=== PATIENT | male | born 1940 | race Caucasian/White ===

== ENCOUNTER 2018-12-30 19:35 | Observation (INO) ==
[2018-12-30 20:37] LABS: Partial Thromboplastin Ratio 0.9; Partial Thromboplastin Time 23.1 Seconds (21.0-31.0); Prothrombin Time 10.1 Seconds (9.0-12.0)
[2018-12-30 20:38] LABS: iSTAT Creatinine 0.9 mg/dl (0.6-1.3); iSTAT Hemoglobin 14.3 g/dl (14.0-18.0); iSTAT Ionized Calcium 1.2 mmol/l (1.12-1.32); iSTAT Potassium 4.4 mEq/L (3.3-5.0)
[2018-12-30 20:45] LABS: Basophils # (auto) 0.03 K/uL (0-0.2); Basophils % (auto) 0.5 %; Eosinophils # (auto) 0.25 K/uL (0-0.5); Hematocrit (blood only) 43.3 % (42-52); Hemoglobin 14.9 g/dL (14.0-18.0); Immature Granulocytes # (auto) 0.02 K/uL (0.00-0.02); Immature Granulocytes % (auto) 0.3 %; Lymphocytes # (auto) 1.74 K/uL (1.2-3.4); Mean Corpuscular Hgb Conc 34.4 g/dL (32-36); Mean Corpuscular Volume 90.6 fL (80-100); Mean Platelet Volume 9.5 fL (7.4-10.4); Monocytes # (auto) 0.86 K/uL (0.11-0.59); Monocytes % (auto) 13.8 %; Neutrophils # (auto) 3.32 K/uL (1.4-6.5); Neutrophils % (auto) 53.4 %; Platelet Count 167 K/uL (130-400); RDW Coefficient of Variation 12.9 % (11.5-14.5); RDW Standard Deviation 42.7 fL (36.4-46.3); Red Blood Count 4.78 M/uL (4.7-6.1); White Blood Count 6.22 K/uL (4.8-10.8)
[2018-12-30] MEDS ORDERED: OPTIRAY 320 125ml IV PRN (20:47)
[2018-12-30 21:03] LABS: Alanine Aminotransferase 47 U/L (12-78); Albumin Level 3.3 gm/dl (3.4-5.0); Aspartate Aminotransferase 25 U/L (15-37); BUN Creatinine Ratio 23.1 (10-20); Blood Urea Nitrogen 24 mg/dl (7-18); Calcium 8.6 mg/dl (8.5-10.1); Carbon Dioxide 28 mmol/L (21-32); Chloride 107 mmol/L (98-107); Est GFR (African American) 78.4; Est GFR (Non-African American) 67.7; Glucose 172 mg/dl (70-99); Magnesium 1.9 mg/dl (1.8-2.4); Potassium 4.5 mmol/L (3.5-5.1); Sodium 140 mmol/L (136-145)
[2018-12-30 21:04] LABS: Alkaline Phosphatase 76 U/L (45-117); Bilirubin,Total 0.4 mg/dl (0.2-1); Globulin 3.2 gm/dl (2.5-4.0); Total Protein 6.5 gm/dl (6.4-8.2); Troponin I < 0.015 ng/ml (0-0.045)
--- NOTE | 2018-12-30 21:06 | CT Scan Report ---
UNENHANCED CT OF THE BRAIN; CT ANGIOGRAM OF THE BRAIN; CT ANGIOGRAM OF THE NECK CLINICAL HISTORY: Intermittent right-sided weakness. COMPARISON STUDY: No priors. TECHNIQUE: Unenhanced axial CT scan of the brain is performed. Subsequently, following the IV adminis tration of 119 of Optiray 320, CT angiogram of the head and neck was performed from the aortic arch t o the vertex. Images are reviewed in the axial, sagittal, and coronal planes. 3-D MIPS images are cre ated and assessed. IV contrast was administered without complication. All measurements were calculate d based on NASCET criteria. A dose lowering technique was utilized adhering to the principles of ALA RA. CT DOSE: 1244.71 mGy.cm FINDINGS: Brain parenchyma: There is age-related involutional change noting 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 There is no hemorrhage, mass effect, or evidence of acute t erritorial ischemia by CT criteria. There is no evidence of enhancing mass lesion on the angiogram ph ase images. The ventricles, sulci, and cisterns are prominent secondary to involutional change. Kurtz- white matter differentiation is preserved. No extra-axial fluid collection is seen. Thoracic aorta: There is atherosclerotic calcification of the thoracic aorta. Visualized portions of the thoracic aorta are normal in caliber. The aortic arch demonstrates standard 3-vessel anatomy. Right carotid arterial system: The right common carotid artery is widely patent, as are the right int ernal and external carotid arteries. Atherosclerotic calcification is noted in the carotid bulb. Left carotid arterial system: The left common carotid artery is widely patent, as are the left rn internal medicine al and external carotid arteries. There is atherosclerotic calcification of the carotid bulb. Vertebral arteries: The right vertebral artery is widely patent and dominant. The left vertebral rossana ry is diminutive. The proximal left vertebral artery is patent. This is occluded in the distal neck a t the level of C1, best seen on image #249. This is reconstituted at the skull base, likely via retro grade flow. Subclavian arteries: Patent bilaterally. There is less than 50% stenosis of the proximal right subcla vian artery seen on image #19. Intracranial vasculature: There is atherosclerotic calcification of the cavernous carotid and vertebr al arteries. The internal carotid arteries are patent at the skull base, as are the anterior and midd le cerebral arteries bilaterally. Flow within the left vertebral artery is reconstituted at the skull base, likely via retrograde flow. The right vertebral artery and the basilar artery are widely paten t, as are the posterior cerebral arteries. The right vertebral artery is dominant. There is no aneury sm, high-grade stenosis, or focal vessel cut off seen throughout the intracranial circulation. Jugular veins: Widely patent bilaterally. Dural sinuses: Patent. Lung apices: Partially visualized upper lobe lung parenchyma appears clear. Soft tissues: The visualized pharyngeal soft tissues are normal in appearance noting angiographic pha se technique. The oropharyngeal airway appears widely patent. A 2 cm low-attenuation nodule is identi fied in the right thyroid lobe. The salivary glands Are normal in appearance. No cervical lymphadenop athy is seen. Skeletal structures: The skeletal structures are osteopenic. The calvarium appears intact. The cervic al spine appears maintained noting multilevel spondylosis. No lytic or blastic lesion is seen. Orbits: The bony orbits are intact. Orbital contents are normal as visualized. Sinuses and mastoids: The paranasal sinuses are clear. There is a large right mastoid effusion. The l eft mastoid air cells are well pneumatized. IMPRESSION: 1. There is no hemorrhage, mass effect, or evidence of acute territorial ischemia by CT criteria. 2. Unremarkable CT angiogram of the brain. 3. The carotid arteries and the right vertebral artery are widely patent. 4. The left vertebral artery is diminutive, and there is there is age-indeterminant complete thrombo sis of the distal left vertebral artery in the neck. This is reconstituted at the skull base, likely via retrograde flow. 5. Large right mastoid effusion. 6. There is a 2 cm low-attenuation nodule in the right lobe of the thyroid gland. This can be followe d with a nonemergent thyroid ultrasound if clinically warranted. Electronically signed by: Lito Sheehan M.D. 12/30/2018 9:04 PM
[2018-12-30] MEDS ORDERED: ASPIRIN CHEW 324 MG PO STA (21:30)
--- NOTE | 2018-12-30 22:40 | History & Physical Report ---
Date of Service December 30, 2018 Assessment & Plan (1) TIA (transient ischemic attack): This is a 78-year-old male who has a significant past medical history of T2 DM, HTN, HLD, BPH, chronic back pain who presents to [facility] secondary to right sided numbness, weakness that developed approximately 3 days ago. Symptoms are completely resolved. In ED CTA of head and neck was negative for acute abnormality; however did reveal a left vertebral artery diminutive age-indeterminate complete thrombus of the distal left vertebral artery. CBC was relatively unremarkable. BMP significant for elevated BUN 24, creatinine 1.05, glucose 172. Patient is being admitted for suspected TIA like symptoms and further workup. Of significance CTA did reveal thrombus of left vertebral artery. Please refer to Dr. Vizcaino addendum for further details of assessment and plan. (2) Thrombosis of left vertebral artery: (3) HTN (hypertension): -Blood pressure controlled on benazepril (4) Diabetes: -Hold oral hypoglycemics metformin and glimepiride -Lantus and NovoLog per protocol -Obtain A1c in a.m., last A1C 7.1 08/2018 (5) HLD (hyperlipidemia): -Continue statin -Check fasting lipid panel (6) BPH (benign prostatic hyperplasia): -Continue Flomax (7) Depression: -continue citalopram DVT prophylaxis: Per Dr. Vizcaino Disposition: Discharge to home when able Follow-up: PCP Dr. Brush upon discharge Patient was seen and examined in collaboration with Dr. Vizcaino, please see addendum History of Present Illness Chief Complaint: R arm numbness/weakness 3 days ago. Primary Care Provider: David Brush MD This is a 78-year-old male who has a significant past medical history of T2 DM, HTN, HLD, BPH, chronic back pain who presents to [facility] secondary to right sided numbness, weakness that developed approximately 3 days ago. and son are at bedside. Patient states Tuesday night when he was getting into bed he developed acute onset of right arm numbness, "my arm got very heavy and I could not move it," weakness that lasted approximately 15 minutes prior to resolving. He also had associated right leg numbness but no overt weakness. He feels like at the time he was having difficulty speaking; however, family denies any slurred speech or facial droop. Symptoms completely resolved until this afternoon when he developed right arm numbness that started at his right hand and extended group home up his right forearm, lasted a few minutes and resolved. This time there was no associated weakness or heaviness to the arm. During both events he denied chest pain, shortness of breath, coughing, hemoptysis, lightheadedness, dizziness, syncope, loss of bowel or bl adder habits, nausea, vomiting, diarrhea, abdominal pain. He denies any recent illness or fever chills or sweats. His appetite has been good. 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 Never had anything like this in the past. He does admit to drinking sugar free energy drinks one daily, monster. Allergies Allergy/AdvReac Type Severity Reaction Status Date / Time bee venom protein (honey bee) Allergy Unknown Unverified 12/30/18 20:55 Home Medications Home Medications Medication Instructions Recorded Confirmed Type aspirin 81 mg PO DAILY 12/30/18 12/30/18 History benazepril 10 mg PO DAILY 12/30/18 12/30/18 History citalopram 20 mg PO DAILY 12/30/18 12/30/18 History glimepiride 2 mg PO QAM 12/30/18 12/30/18 History lovastatin 20 mg PO DAILY 12/30/18 12/30/18 History metformin 500 mg PO BID 12/30/18 12/30/18 History tamsulosin 0.4 mg PO DAILY 12/30/18 12/30/18 History tramadol 50 mg PO Q8H PRN 12/30/18 12/30/18 History Past Med/Surg History Medical History Depression (Chronic) HLD (hyperlipidemia) (Chronic) BPH (benign prostatic hyperplasia) (Chronic) PUD (peptic ulcer disease) (Chronic) Diabetes (Chronic) HTN (hypertension) (Chronic) Asthma (Chronic) Bronchitis (Resolved) PNA (pneumonia) (Resolved) Rectal bleeding (Resolved) Stomach problems (Resolved) UGIB (upper gastrointestinal bleed) (Resolved) Surgical History History of colonoscopy with polypectomy (Chronic) History of esophagogastroduodenoscopy (EGD) (Chronic) Family History Father , 71 Heart disease Mother Alzheimer disease Parkinsons disease Social History Communication Ability: Effective Police Shift Commander Required: No Beliefs That Will Affect Care: None marital status: Current Living Situation: Spouse current occupational status: retired Other Information That Helps Us Care for You: No Feels Safe at Home: Yes Safety Concerns: Feels Safe At This Time Smoking Status: Former smoker Hx Alcohol Use: No Hx Substance Use: No Review of Systems All systems reviewed & are unremarkable except as noted in HPI & below Physical Exam Vital Signs (Past 24 Hours): Last Vital Signs Temp 36.6 C 12/30/18 19:37 Pulse 65 12/30/18 21:36 Resp 16 12/30/18 21:36 BP 163/97 H 12/30/18 21:36 Pulse Ox 94 12/30/18 21:36 Physical Exam: Gen: WD/WN, morbidly obese, male, NAD, sitting up in bed, pleasant, conversing easily Head: Normocephalic, Atraumatic Eyes: Sclera normal, no conjunctival injection, PERRLA, EOMI ENT: Gross hearing intact but hard of hearing, normal pharynx, mucous membranes moist, positive dentures Neck: supple, no adenopathy, No JVD, no bruit, Resp: Clear to auscultation b/l, no wheeze, rales, rhonchi. 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015 (0-0.045) ng/ml Liver Function 12/30/18 Range/Units 20:27 Total Bilirubin 0.4 (0.2-1) mg/dl AST 25 (15-37) U/L ALT 47 (12-78) U/L Alkaline Phosphatase 76 (45-117) U/L Albumin 3.3 L (3.4-5.0) gm/dl Diagnostic Findings CTA Head/Neck: IMPRESSION: 1. There is no hemorrhage, mass effect, or evidence of acute territorial ischemia by CT criteria. 2. Unremarkable CT angiogram of the brain. 3. The carotid arteries and the right vertebral artery are widely patent. 4. 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 This is reconstituted at the skull base, likely via retrograde flow. 5. Large right mastoid effusion. 6. There is a 2 cm low-attenuation nodule in the right lobe of the thyroid gland. This can be followed with a nonemergent thyroid ultrasound if clinically warranted. Medications Administered Ioversol (Optiray 320 125ml) 119 ml IV ONCE PRN PRN Reason: Interaction Checking Stop: 01/03/19 20:46 Last Admin: 12/30/18 20:47 Dose: 119 ml Documented by: [id number] Discontinued Medications Aspirin (Aspirin) 324 mg PO NOW STA Stop: 12/30/18 21:31 Last Admin: 12/30/18 21:38 Dose: 324 mg Documented by: [id number] Code Status & VTE Plan Code Status Full Code Supervising Physician Co-Signing Physician Notes IM ATTENDING : Patient seen and examined. History obtained from patient and records. Preceding documentation by Ms. Yi Graham PA-C reviewed. FINAL ASSESSMENT AND PLAN as follows : Recurrent right-sided numbness, weakness symptoms ? Stuttering TIA, possible aspirin failure HTN, elevated possibly secondary to intracranial process DM2, on oral meds, well controlled as of recent outpatient hemoglobin A1c of 7.1 last August 2018 hyperlipidemia on statin therapy past tobacco abuse. OBS Medical telemetry Neurochecks Add Plavix to aspirin for for now until stroke ruled out MRI/MRA brain RE episodic right-sided numbness, weakness symptoms permissive hypertension until acute stroke ruled out Neurology consult RE episodic right-sided numbness, weakness symptoms Basal insulin, ISS BG goal 140-180, update hemoglobin A1c DVT prophylaxis. Lovenox subcu Full code
[2018-12-30] MEDS ORDERED: CLOPIDOGREL BISULFATE 75 MG TAB PO ONE (23:02)
[2018-12-30] MEDS ORDERED: NITROGLYCERIN SL 0.4 MG/TAB TAB SL PRN (23:53)
[2018-12-30] MEDS ORDERED: ACETAMINOPHEN 325 MG TAB PO PRN (23:53)
[2018-12-30] MEDS ORDERED: GLUCOSE 10 TABS/TUBE PO PRN (23:55)
[2018-12-30] MEDS ORDERED: CARBOHYDRATES FOR HYPOGLYCEMIA PO PRN (23:55)
[2018-12-30] MEDS ORDERED: GLUCAGON FOR INJ 1 MG VIAL SQ PRN (23:55)
[2018-12-30] MEDS ORDERED: PROCHLORPERAZINE 5 MG in SYRINGE 4 ML IV PRN (23:55)
[2018-12-30] MEDS ORDERED: GLUCOSE 40% GEL 15 GM TUBE PO PRN (23:55)
[2018-12-30] MEDS ORDERED: DEXTROSE 50% 50 ML SYRINGE IV PRN (23:55)
--- NOTE | 2018-12-30 23:56 | Emergency Department Note ---
Entered by Howard Flores acting as a scribe for William Orourke MD History of Present Illness General Chief complaint: Neuro Symptoms/Deficit Stated complaint: TERRIBLE HEADACHE, UNSTEADY, RT SIDE NUMBNESS Time Seen by Provider: 12/30/18 19:57 Source: patient History of Present Illness Onset (ago): day(s) 3 Location: right Pain Consistency: + other (intermittent episodes) Quality: + other (numbness and weakness) Associated symptoms: + other (Positive for headaches, a slight speech change, and occasional neck pain. Negative for nausea, vomiting, and fever.) The patient is a 78 year old male who presents to the emergency department with complaints of intermittent episodes of right-sided numbness and weakness beginning three days ago. The patient states that he has been getting intermittent headaches for the last 3-4 months. He notes that he does not usually get headaches, and he reports that it is very odd for him to get headaches. The patient states that he started to experience right-sided numbness and weakness three days ago. He notes that his numbness and weakness resolved, but he reports that he had another episode today around 1500. The patient states that his hands became numb today, but he notes that he feels like he is back to normal. He also complains of slight speech changes and occasional neck pain. He denies any nausea, vomiting, fevers, and recent falls. He reports that he does not have a history of a previous stroke. Home Medications Home Medications Medication Instructions Recorded Confirmed Type aspirin 81 mg PO DAILY 12/30/18 12/30/18 History benazepril 10 mg PO DAILY 12/30/18 12/30/18 History citalopram 20 mg PO DAILY 12/30/18 12/30/18 History glimepiride 2 mg PO QAM 12/30/18 12/30/18 History lovastatin 20 mg PO DAILY 12/30/18 12/30/18 History metformin 500 mg PO BID 12/30/18 12/30/18 History tamsulosin 0.4 mg PO DAILY 12/30/18 12/30/18 History tramadol 50 mg PO Q8H PRN 12/30/18 12/30/18 History Allergies Allergy/AdvReac Type Severity Reaction Status Date / Time bee venom protein (honey bee) Allergy Unknown Unverified 12/30/18 20:55 Past Med/Surg History Medical History Depression (Chronic) HLD (hyperlipidemia) (Chronic) BPH (benign prostatic hyperplasia) (Chronic) PUD (peptic ulcer disease) (Chronic) Diabetes (Chronic) HTN (hypertension) (Chronic) Asthma (Chronic) Bronchitis (Resolved) PNA (pneumonia) (Resolved) Rectal bleeding (Resolved) Stomach problems (Resolved) UGIB (upper gastrointestinal bleed) (Resolved) Surgical History History of colonoscopy with polypectomy (Chronic) History of esophagogastroduodenoscopy (EGD) (Chronic) Family History Father , 71 Heart disease Mother Alzheimer disease Parkinsons disease Social History Communication Ability: Effective Beliefs That Will Affect Care: None marital status: Current Living Situation: Spouse current occupational status: retired Other Information That Helps Us Care for You: No Feels Safe at Home: Yes Safety Concerns: Feels Safe At This Time Smoking Status: Former smoker Hx Alcohol Use: No Hx Substance Use: No Review of Systems See HPI for pertinent positives & negatives. and A total of 10 systems reviewed and were otherwise negative Physical Exam Vital Signs Vital Signs - 24 hr 12/30/18 19:37 12/30/18 20:01 12/30/18 21:36 Temperature 36.6 C Temperature Source Oral Sepsis Recent Fever Within 48 Hours No Sepsis Action Taken by Nursing No Action Required Pulse Rate 64 Pulse Rate [Right Finger] 65 Pulse Rhythm Regular Pulse Rhythm [Right Finger] Pulse Strength Normal Pulse Strength [Right Finger] Respiratory Rate 18 16 Respiratory Effort / Characteristics Non-Labored Spontaneous Non-Labored Spontaneous Respiratory Depth Normal Normal Respiratory Pattern Regular Blood Pressure 163/82 H Blood Pressure [Left Arm] 163/97 H Blood Pressure [Right Arm] Blood Pressure Mean 109 Blood Pressure Mean [Left Arm] 119 Blood Pressure Mean [Right Arm] Blood Pressure Position Sitting Blood Pressure Position [Left Arm] Lying Blood Pressure Position [Right Arm] Pulse Oximetry 97 94 94 Pulse Oximetry [Left Index Finger] Oxygen Delivery Method Room Air Room Air Room Air Oxygen Delivery Method [Left Index Finger] 12/30/18 23:23 12/31/18 00:32 12/31/18 00:45 Temperature 36.6 C Temperature Source Oral Sepsis Recent Fever Within 48 Hours Sepsis Action Taken by Nursing Pulse Rate 65 66 Pulse Rate [Right Finger] 64 90 Pulse Rhythm Pulse Rhythm [Right Finger] Regular Regular Pulse Strength Pulse Strength [Right Finger] Normal Normal Respiratory Rate 18 18 16 Respiratory Effort / Characteristics Non-Labored Spontaneous Non-Labored Spontaneous Respiratory Depth Normal Normal Respiratory Pattern Regular Blood Pressure 133/90 Blood Pressure [Left Arm] 158/89 H 153/77 H Blood Pressure [Right Arm] Blood Pressure Mean Blood Pressure Mean [Left Arm] 112 102 Blood Pressure Mean [Right Arm] Blood Pressure Position Blood Pressure Position [Left Arm] Lying Sitting Blood Pressure Position [Right Arm] Pulse Oximetry 95 95 96 Pulse Oximetry [Left Index Finger] Oxygen Delivery Method Room Air Room Air Room Air Oxygen Delivery Method [Left Index Finger] 12/31/18 01:45 12/31/18 07:28 12/31/18 08:00 Temperature 36.6 C Temperature Source Oral Sepsis Recent Fever Within 48 Hours Sepsis Action Taken by Nursing Pulse Rate 58 L Pulse Rate [Right Finger] 60 Pulse Rhythm Pulse Rhythm [Right Finger] Pulse Strength Pulse Strength [Right Finger] Respiratory Rate 18 Respiratory Effort / Characteristics Respiratory Depth Respiratory Pattern Blood Pressure Blood Pressure [Left Arm] 120/72 Blood Pressure [Right Arm] Blood Pressure Mean Blood Pressure Mean [Left Arm] 88 Blood Pressure Mean [Right Arm] Blood Pressure Position Blood Pressure Position [Left Arm] Lying Blood Pressure Position [Right Arm] Pulse Oximetry 94 Pulse Oximetry [Left Index Finger] 96 Oxygen Delivery Method Room Air Oxygen Delivery Method [Left Index Finger] Room Air 12/31/18 11:26 12/31/18 15:19 12/31/18 16:00 Temperature 36.9 C 37.3 C Temperature Source Oral Oral Sepsis Recent Fever Within 48 Hours Sepsis Action Taken by Nursing Pulse Rate 72 Pulse Rate [Right Finger] 59 L 72 Pulse Rhythm Pulse Rhythm [Right Finger] Pulse Strength Pulse Strength [Right Finger] Respiratory Rate 18 20 Respiratory Effort / Characteristics Respiratory Depth Respiratory Pattern Blood Pressure Blood Pressure [Left Arm] 179/87 H Blood Pressure [Right Arm] 144/75 H Blood Pressure Mean Blood Pressure Mean [Left Arm] 117 Blood Pressure Mean [Right Arm] 98 Blood Pressure Position Blood Pressure Position [Left Arm] Lying Blood Pressure Position [Right Arm] Lying Pulse Oximetry 97 93 Pulse Oximetry [Left Index Finger] Oxygen Delivery Method Room Air Room Air Oxygen Delivery Method [Left Index Finger] General: Non-ill appearing 78 year old male in no acute distress. HEENT: Normal cephalic atraumatic. Pupils are equal round and reactive to light. Extraocular movements are intact. Oropharynx is pink with moist mucous membranes. No swelling of the mouth lips or tongue. Neck: Supple with a midline trachea. No meningeal signs or stiffness, no JVD or bruits. No Stridor. Chest: Clear to auscultation bilaterally. No wheezes or rhonchi. No increased work of breathing. Heart: regular rate and rhythm. Abdomen: Soft nontender, nondistended without rebound guarding or rigidity. Extremities: No cyanosis clubbing or edema. No calf tenderness or asymmetry Spine/Back. Non tender to palpation. No CVA tenderness Skin: Good turgor without rashes. Neurologic exam: Cranial nerves two through 12 are intact. Motor and sensation are intact and symmetrical throughout. Course 1956: Past medical records reviewed. The patient was evaluated in room A4, and a complete history and physical examination were performed. 2139: Upon reevaluation, the patient is stable. I discussed the results and treatment plan with the patient. He verbalizes understanding and agreement. I discussed the patient's case with JER Morrow. The patient will be evaluated for further management and care. Consultations Consultation #1: I reviewed the patient's case with Tanya Morrow. He will evaluate the patient for further management. Time: 21:40 Administered Medications Aspirin (Ecotrin Ectab) 81 mg PO DAILY [facility] Stop: 01/30/19 08:59 Last Admin: 12/31/18 08:32 Dose: 81 mg Documented by: [id number] Citalopram Hydrobromide (Celexa) 20 mg PO DAILY [facility] Stop: 01/30/19 08:59 Last Admin: 12/31/18 08:34 Dose: 20 mg Documented by: [id number] Clopidogrel Bisulfate (Plavix) 75 mg PO QAM MATT Stop: 01/30/19 08:59 Last Admin: 12/31/18 08:33 Dose: 75 mg Documented by: [id number] Enalapril Maleate (Vasotec) 2.5 mg PO DAILY [facility] Stop: 01/30/19 08:59 Last Admin: 12/31/18 08:32 Dose: 2.5 mg Documented by: [id number] Enoxaparin Sodium (Lovenox) 40 mg SQ QAM MATT Stop: 01/30/19 08:59 Last Admin: 12/31/18 08:34 Dose: 40 mg Documented by: [id number] Sodium Chloride (Nss 1000ml) 1,000 mls @ 60 mls/hr IV .[id number] ONE Stop: 12/31/18 18:24 Last Infusion: 12/31/18 06:21 Dose: 60 mls/hr Documented by: [id number] Admin: 12/31/18 02:14 Dose: 60 mls/hr Documented by: [id number] Insulin Aspart (Novolog Flexpen) 0 units SC ACHS MATT Stop: 01/30/19 01:59 Last Admin: 12/31/18 17:31 Dose: 3 units Documented by: [id number] Cosigned by: [id number] Admin: 12/31/18 12:51 Dose: 1 units Documented by: [id number] Cosigned by: [id number] Admin: 12/31/18 08:31 Dose: Not Given Documented by: [id number] Cosigned by: [id number] Admin: 12/31/18 02:05 Dose: 300 units Documented by: [id number] Cosigned by: [id number] Tamsulosin HCl (Flomax) 0.4 mg PO DAILY MATT Stop: 01/30/19 08:59 Last Admin: 12/31/18 08:34 Dose: 0.4 mg Documented by: [id number] Tramadol HCl (Ultram) 50 mg PO Q8H PRN PRN Reason: Pain Stop: 01/30/19 01:08 Last Admin: 12/31/18 11:17 Dose: 50 mg Documented by: [id number] Discontinued Medications Aspirin (Aspirin) 324 mg PO NOW STA Stop: 12/30/18 21:31 Last Admin: 12/30/18 21:38 Dose: 324 mg Documented by: [id number] Clopidogrel Bisulfate (Plavix) 75 mg PO NOW ONE Stop: 12/30/18 23:03 Last Admin: 12/30/18 23:21 Dose: 75 mg Documented by: [id number] Insulin Glargine (Lantus Solostar Pen) 5 units SQ ONE ONE Stop: 12/31/18 02:01 Last Admin: 12/31/18 02:07 Dose: 5 units Documented by: [id number] Cosigned by: [id number] Ioversol (Optiray 320 125ml) 119 ml IV ONCE PRN PRN Reason: Interaction Checking Stop: 01/03/19 20:46 Last Admin: 12/30/18 20:47 Dose: 119 ml Documented by: [id number] Medical Decision Making Differential Diagnosis Differential diagnoses include: TIA, intracranial process, hypoglycemia, electrolyte/metabolic abnormalities, and trauma. Medical Records Attestation: I reviewed the patient's medical records. Home Medications Current Medication List: was personally reviewed by me Laboratory Data Attestation: I reviewed the patient's lab results. Result diagrams: 12/31/18 06:13 12/31/18 06:13 Lab Results 12/30/18 12/30/18 12/30/18 Range/Units 19:52 20:15 20:24 WBC (4.8-10.8) K/uL RBC (4.7-6.1) M/uL Hgb (14.0-18.0) g/dL POC Hgb 14.3 (14.0-18.0) g/dl Hct (42-52) % POC Hct 42 (42-52) % MCV (80-100) fL MCH (25-34) pg MCHC (32-36) g/dL RDW Std Deviation (36.4-46.3) fL RDW Coeff of Tana (11.5-14.5) % Plt Count (130-400) K/uL MPV (7.4-10.4) fL Immature Gran % (Auto) % Neut % (Auto) % Lymph % (Auto) % [place] % (Auto) % Eos % (Auto) % Baso % (Auto) % Immature Gran # (Auto) (0.00-0.02) K/uL Neut # (Auto) (1.4-6.5) K/uL Lymph # (Auto) (1.2-3.4) K/uL [place] # (Auto) (0.11-0.59) K/uL Eos # (Auto) (0-0.5) K/uL Baso # (Auto) (0-0.2) K/uL PT 10.1 (9.0-12.0) Seconds INR 1.0 (0.9-1.1) APTT 23.1 (21.0-31.0) Seconds PTT Ratio 0.9 POC Sodium 139 (135-144) mEq/L Sodium (136-145) mmol/L POC Potassium 4.4 (3.3-5.0) mEq/L Potassium (3.5-5.1) mmol/L POC Chloride 102 (101-112) mEq/L Chloride (98-107) mmol/L Carbon Dioxide (21-32) mmol/L POC Total CO2 26 (24-31) mEq/l Anion Gap (3-11) POC Anion Gap 17.0 (16-25) mmol/L POC BUN 24 H (7-18) mg/dl BUN (7-18) mg/dl Creatinine (0.6-1.4) mg/dl POC Creatinine 0.9 (0.6-1.3) mg/dl Est Cr Clr Drug Dosing ml/min Est GFR ( Amer) Est GFR (Non-Af Amer) BUN/Creatinine Ratio (10-20) Glucose (70-99) mg/dl POC Glucose 165 H (70-99) POC Glucose (other) 178 H (70-99) mg/dl Calcium (8.5-10.1) mg/dl POC Ioniz Calcium Gabriela 1.20 (1.12-1.32) mmol/l Magnesium (1.8-2.4) mg/dl Total Bilirubin (0.2-1) mg/dl AST (15-37) U/L ALT (12-78) U/L Alkaline Phosphatase (45-117) U/L Troponin I (0-0.045) ng/ml Total Protein (6.4-8.2) gm/dl Albumin (3.4-5.0) gm/dl Globulin (2.5-4.0) gm/dl Albumin/Globulin Ratio (0.9-2) Triglycerides (0-150) mg/dl Cholesterol (0-200) mg/dl LDL Cholesterol, Calc mg/dl VLDL Cholesterol, Calc mg/dl HDL Cholesterol mg/dl Cholesterol/HDL Ratio Specimen Hemolysis 12/30/18 12/30/18 12/31/18 Range/Units 20:27 20:27 02:04 WBC 6.22 (4.8-10.8) K/uL RBC 4.78 (4.7-6.1) M/uL Hgb 14.9 (14.0-18.0) g/dL POC Hgb (14.0-18.0) g/dl Hct 43.3 (42-52) % POC Hct (42-52) % MCV 90.6 (80-100) fL MCH 31.2 (25-34) pg MCHC 34.4 (32-36) g/dL RDW Std Deviation 42.7 (36.4-46.3) fL RDW Coeff of Tana 12.9 (11.5-14.5) % Plt Count 167 (130-400) K/uL MPV 9.5 (7.4-10.4) fL Immature Gran % (Auto) 0.3 % Neut % (Auto) 53.4 % Lymph % (Auto) 28.0 % [place] % (Auto) 13.8 % Eos % (Auto) 4.0 % Baso % (Auto) 0.5 % Immature Gran # (Auto) 0.02 (0.00-0.02) K/uL Neut # (Auto) 3.32 (1.4-6.5) K/uL Lymph # (Auto) 1.74 (1.2-3.4) K/uL [place] # (Auto) 0.86 H (0.11-0.59) K/uL Eos # (Auto) 0.25 (0-0.5) K/uL Baso # (Auto) 0.03 (0-0.2) K/uL PT (9.0-12.0) Seconds INR (0.9-1.1) APTT (21.0-31.0) Seconds PTT Ratio POC Sodium (135-144) mEq/L Sodium 140 (136-145) mmol/L POC Potassium (3.3-5.0) mEq/L Potassium 4.5 (3.5-5.1) mmol/L POC Chloride (101-112) mEq/L Chloride 107 (98-107) mmol/L Carbon Dioxide 28 (21-32) mmol/L POC Total CO2 (24-31) mEq/l Anion Gap 4.0 (3-11) POC Anion Gap (16-25) mmol/L POC BUN (7-18) mg/dl BUN 24 H (7-18) mg/dl Creatinine 1.05 (0.6-1.4) mg/dl POC Creatinine (0.6-1.3) mg/dl Est Cr Clr Drug Dosing 64.0 ml/min Est GFR ( Amer) 78.4 Est GFR (Non-Af Amer) 67.7 BUN/Creatinine Ratio 23.1 H (10-20) Glucose 172 H (70-99) mg/dl POC Glucose 104 H (70-99) POC Glucose (other) (70-99) mg/dl Calcium 8.6 (8.5-10.1) mg/dl POC Ioniz Calcium Gabriela (1.12-1.32) mmol/l Magnesium 1.9 (1.8-2.4) mg/dl Total Bilirubin 0.4 (0.2-1) mg/dl AST 25 (15-37) U/L ALT 47 (12-78) U/L Alkaline Phosphatase 76 (45-117) U/L Troponin I < 0.015 (0-0.045) ng/ml Total Protein 6.5 (6.4-8.2) gm/dl Albumin 3.3 L (3.4-5.0) gm/dl Globulin 3.2 (2.5-4.0) gm/dl Albumin/Globulin Ratio 1.0 (0.9-2) Triglycerides (0-150) mg/dl Cholesterol (0-200) mg/dl LDL Cholesterol, Calc mg/dl VLDL Cholesterol, Calc mg/dl HDL Cholesterol mg/dl Cholesterol/HDL Ratio Specimen Hemolysis 12/31/18 12/31/18 12/31/18 Range/Units 06:13 06:13 07:50 WBC 6.37 (4.8-10.8) K/uL RBC 4.68 L (4.7-6.1) M/uL Hgb 14.7 (14.0-18.0) g/dL POC Hgb (14.0-18.0) g/dl Hct 42.1 (42-52) % POC Hct (42-52) % MCV 90.0 (80-100) fL MCH 31.4 (25-34) pg MCHC 34.9 (32-36) g/dL RDW Std Deviation 42.2 (36.4-46.3) fL RDW Coeff of Tana 12.9 (11.5-14.5) % Plt Count 165 (130-400) K/uL MPV 9.4 (7.4-10.4) fL Immature Gran % (Auto) 0.5 % Neut % (Auto) 49.7 % Lymph % (Auto) 29.8 % [place] % (Auto) 14.8 % Eos % (Auto) 4.7 % Baso % (Auto) 0.5 % Immature Gran # (Auto) 0.03 H (0.00-0.02) K/uL Neut # (Auto) 3.17 (1.4-6.5) K/uL Lymph # (Auto) 1.90 (1.2-3.4) K/uL [place] # (Auto) 0.94 H (0.11-0.59) K/uL Eos # (Auto) 0.30 (0-0.5) K/uL Baso # (Auto) 0.03 (0-0.2) K/uL PT (9.0-12.0) Seconds INR (0.9-1.1) APTT (21.0-31.0) Seconds PTT Ratio POC Sodium (135-144) mEq/L Sodium 143 (136-145) mmol/L POC Potassium (3.3-5.0) mEq/L Potassium 4.6 (3.5-5.1) mmol/L POC Chloride (101-112) mEq/L Chloride 108 H (98-107) mmol/L Carbon Dioxide 31 (21-32) mmol/L POC Total CO2 (24-31) mEq/l Anion Gap 3.0 (3-11) POC Anion Gap (16-25) mmol/L POC BUN (7-18) mg/dl BUN 22 H (7-18) mg/dl Creatinine 1.04 (0.6-1.4) mg/dl POC Creatinine (0.6-1.3) mg/dl Est Cr Clr Drug Dosing 64.5 ml/min Est GFR ( Amer) 79.3 Est GFR (Non-Af Amer) 68.4 BUN/Creatinine Ratio 21.1 H (10-20) Glucose 113 H (70-99) mg/dl POC Glucose 114 H (70-99) POC Glucose (other) (70-99) mg/dl Calcium 8.7 (8.5-10.1) mg/dl POC Ioniz Calcium Gabriela (1.12-1.32) mmol/l Magnesium (1.8-2.4) mg/dl Total Bilirubin (0.2-1) mg/dl AST (15-37) U/L ALT (12-78) U/L Alkaline Phosphatase (45-117) U/L Troponin I (0-0.045) ng/ml Total Protein (6.4-8.2) gm/dl Albumin (3.4-5.0) gm/dl Globulin (2.5-4.0) gm/dl Albumin/Globulin Ratio (0.9-2) Triglycerides 152 H (0-150) mg/dl Cholesterol 165 (0-200) mg/dl LDL Cholesterol, Calc 100 mg/dl VLDL Cholesterol, Calc 30 mg/dl HDL Cholesterol 35 mg/dl Cholesterol/HDL Ratio 5 Specimen Hemolysis 12/31/18 12/31/18 Range/Units 12:02 16:21 WBC (4.8-10.8) K/uL RBC (4.7-6.1) M/uL Hgb (14.0-18.0) g/dL POC Hgb (14.0-18.0) g/dl Hct (42-52) % POC Hct (42-52) % MCV (80-100) fL MCH (25-34) pg MCHC (32-36) g/dL RDW Std Deviation (36.4-46.3) fL RDW Coeff of Tana (11.5-14.5) % Plt Count (130-400) K/uL MPV (7.4-10.4) fL Immature Gran % (Auto) % Neut % (Auto) % Lymph % (Auto) % [place] % (Auto) % Eos % (Auto) % Baso % (Auto) % Immature Gran # (Auto) (0.00-0.02) K/uL Neut # (Auto) (1.4-6.5) K/uL Lymph # (Auto) (1.2-3.4) K/uL [place] # (Auto) (0.11-0.59) K/uL Eos # (Auto) (0-0.5) K/uL Baso # (Auto) (0-0.2) K/uL PT (9.0-12.0) Seconds INR (0.9-1.1) APTT (21.0-31.0) Seconds PTT Ratio POC Sodium (135-144) mEq/L Sodium (136-145) mmol/L POC Potassium (3.3-5.0) mEq/L Potassium (3.5-5.1) mmol/L POC Chloride (101-112) mEq/L Chloride (98-107) mmol/L Carbon Dioxide (21-32) mmol/L POC Total CO2 (24-31) mEq/l Anion Gap (3-11) POC Anion Gap (16-25) mmol/L POC BUN (7-18) mg/dl BUN (7-18) mg/dl Creatinine (0.6-1.4) mg/dl POC Creatinine (0.6-1.3) mg/dl Est Cr Clr Drug Dosing ml/min Est GFR ( Amer) Est GFR (Non-Af Amer) BUN/Creatinine Ratio (10-20) Glucose (70-99) mg/dl POC Glucose 128 H 111 H (70-99) POC Glucose (other) (70-99) mg/dl Calcium (8.5-10.1) mg/dl POC Ioniz Calcium Gabriela (1.12-1.32) mmol/l Magnesium (1.8-2.4) mg/dl Total Bilirubin (0.2-1) mg/dl AST (15-37) U/L ALT (12-78) U/L Alkaline Phosphatase (45-117) U/L Troponin I (0-0.045) ng/ml Total Protein (6.4-8.2) gm/dl Albumin (3.4-5.0) gm/dl Globulin (2.5-4.0) gm/dl Albumin/Globulin Ratio (0.9-2) Triglycerides (0-150) mg/dl Cholesterol (0-200) mg/dl LDL Cholesterol, Calc mg/dl VLDL Cholesterol, Calc mg/dl HDL Cholesterol mg/dl Cholesterol/HDL Ratio Specimen Hemolysis Imaging Data Radiologist's Impression: Radiology results as stated below per my review and the radiologist's interpretation: UNENHANCED CT OF THE BRAIN; CT ANGIOGRAM OF THE BRAIN; CT ANGIOGRAM OF THE NECK FINDINGS: Brain parenchyma: There is age-related involutional change noting 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 There is no hemorrhage, mass effect, or evidence of acute territorial ischemia by CT criteria. There is no evidence of enhancing mass lesion on the angiogram phase i mages. The ventricles, sulci, and cisterns are prominent secondary to involutional change. Kurtz-white matter differentiation is preserved. No extra- axial fluid collection is seen. Thoracic aorta: There is atherosclerotic calcification of the thoracic aorta. Visualized portions of the thoracic aorta are normal in caliber. The aortic arch demonstrates standard 3-vessel anatomy. Right carotid arterial system: The right common carotid artery is widely patent, as are the right internal and external carotid arteries. Atherosclerotic calcification is noted in the carotid bulb. Left carotid arterial system: The left common carotid artery is widely patent, as are the left internal and external carotid arteries. There is atherosclerotic calcification of the carotid bulb. Vertebral arteries: The right vertebral artery is widely patent and dominant. The left vertebral artery is diminutive. The proximal left vertebral artery is patent. This is occluded in the distal neck at the level of C1, best seen on image #[id number]. This is reconstituted at the skull base, likely via retrograde flow. Subclavian arteries: Patent bilaterally. There is less than 50% stenosis of the proximal right subclavian artery seen on image #19. Intracranial vasculature: There is atherosclerotic calcification of the cav ernous carotid and vertebral arteries. The internal carotid arteries are patent at the skull base, as are the anterior and middle cerebral arteries bilaterally. Flow within the left vertebral artery is reconstituted at the skull base, likely via retrograde flow. The right vertebral artery and the basilar artery are widely patent, as are the posterior cerebral arteries. The right vertebral artery is dominant. There is no aneurysm, high-grade stenosis, or focal vessel cut off seen throughout the intracranial circulation. Jugular veins: Widely patent bilaterally. Dural sinuses: Patent. Lung apices: Partially visualized upper lobe lung parenchyma appears clear. Soft tissues: The visualized pharyngeal soft tissues are normal in appearance noting angiographic phase technique. The oropharyngeal airway appears widely patent. A 2 cm low-attenuation nodule is identified in the right thyroid lobe. The salivary glands Are normal in appearance. No cervical lymphadenopathy is seen. Skeletal structures: The skeletal structures are osteopenic. The calvarium appears intact. The cervical spine appears maintained noting multilevel spondylosis. No lytic or blastic lesion is seen. Orbits: The bony orbits are intact. Orbital contents are normal as visualized. Sinuses and mastoids: The paranasal sinuses are clear. There is a large right mastoid effusion. The left mastoid air cells are well pneumatized. IMPRESSION: 1. There is no hemorrhage, mass effect, or evidence of acute territorial isc hemia by CT criteria. 2. Unremarkable CT angiogram of the brain. 3. The carotid arteries and the right vertebral artery are widely patent. 4. 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 This is reconstituted at the skull base, likely via retrograde flow. 5. Large right mastoid effusion. 6. There is a 2 cm low-attenuation nodule in the right lobe of the thyroid gland. This can be followed with a nonemergent thyroid ultrasound if clinically warranted. Electronically signed by: Lito Sheehan M.D. 12/30/2018 9:04 PM ECG Data Attestation: I personally reviewed and interpreted this ECG as follows: Indication: weakness Rate (beats per minute): 60 Rhythm: normal sinus Findings: + 1st degree AV block; no PAC, no PVC, no ST depression and no ST elevation Comparison ECG Date: no prior available Blood Pressure Blood Pressure Findings: Elevated blood pressure Blood Pressure Disposition: further management by hospitalist NADYA Narrative This patient comes in as described above. He was placed in room A4. He has had 2 episodes where he has had numbness in his right side. He had one today that is completely resolved at 1 about a week ago. He has had some headaches as well at times he is asymptomatic at present has a normal neurologic exam. He has had no fever chills or trauma. IV access established multiple blood test was obtained. I did do a CTA scan of his head and neck. There are no acute findings. 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 He was given aspirin p.o. here. EKG does not show acute ischemic changes no acute electrolyte or metabolic abnormalities I do think he needs to be admitted/observe for further neurologic workup hannah having TIAs. I have consulted with Dr. Riddle to see in the ER for these measures. Impression & Plan TIA (transient ischemic attack), Numbness and tingling of right side of face Discharge Plan Visit Data *Final* Discharge Date/Time: 12/31/18 00:32 Chief Complaint: Neuro Symptoms/Deficit Stated Complaint: TERRIBLE HEADACHE, UNSTEADY, RT SIDE NUMBNESS ED Provider: William Orourke Discharge Problem: TIA (transient ischemic attack), Numbness and tingling of right side of face Patient Disposition: Admitted As Inpatient Discharge Instructions Interventions: ED Discharge Assessment Last Done: 12/31/18 00:32 The scribe's documentation has been prepared under my direction and personally reviewed by me in its entirety. I confirm that the note above accurately reflects all work, treatment, procedures, and medical decision making performed by me.
[2018-12-31] MEDS ORDERED: TRAMADOL HCL 50 MG TABLET PO PRN (01:09)
[2018-12-31] MEDS ORDERED: SODIUM CHLORIDE 0.9% 1000ML 1,000 ML IV ONE (01:45)
[2018-12-31] MEDS ORDERED: INSULIN GLARGINE SOLOSTAR 100 UNITS/ML 3 ML PEN SQ ONE (02:00)
[2018-12-31] MEDS: INSULIN ASPART 100 UNITS/ML 3 ML PEN SC SCH ×5 (02:05→21:52)
[2018-12-31 06:30] LABS: Basophils # (auto) 0.03 K/uL (0-0.2); Basophils % (auto) 0.5 %; Eosinophils % (auto) 4.7 %; Hematocrit (blood only) 42.1 % (42-52); Hemoglobin 14.7 g/dL (14.0-18.0); Immature Granulocytes # (auto) 0.03 K/uL (0.00-0.02); Immature Granulocytes % (auto) 0.5 %; Lymphocytes % (auto) 29.8 %; Mean Corpuscular Hgb Conc 34.9 g/dL (32-36); Mean Platelet Volume 9.4 fL (7.4-10.4); Monocytes # (auto) 0.94 K/uL (0.11-0.59); Monocytes % (auto) 14.8 %; Neutrophils # (auto) 3.17 K/uL (1.4-6.5); Neutrophils % (auto) 49.7 %; Platelet Count 165 K/uL (130-400); RDW Coefficient of Variation 12.9 % (11.5-14.5); RDW Standard Deviation 42.2 fL (36.4-46.3); Red Blood Count 4.68 M/uL (4.7-6.1); White Blood Count 6.37 K/uL (4.8-10.8)
[2018-12-31 07:04] LABS: BUN Creatinine Ratio 21.1 (10-20); Calcium 8.7 mg/dl (8.5-10.1); Creatinine Clr Calc Pharmacy 64.5 ml/min; Est GFR (African American) 79.3; Est GFR (Non-African American) 68.4; Potassium 4.6 mmol/L (3.5-5.1)
[2018-12-31] MEDS: ASPIRIN 81 MG ECTAB PO SCH (08:32)
[2018-12-31] MEDS: ENALAPRIL MALEATE 5 MG TAB PO SCH (08:32)
[2018-12-31] MEDS: CLOPIDOGREL BISULFATE 75 MG TAB PO SCH (08:33)
[2018-12-31] MEDS: ENOXAPARIN INJ 40 MG/0.4 ML SYR SQ SCH (08:34)
[2018-12-31] MEDS: CITALOPRAM 20 MG TAB PO SCH (08:34)
[2018-12-31] MEDS: TAMSULOSIN HCL 0.4 MG CAP PO SCH (08:34)
--- NOTE | 2018-12-31 10:51 | Magnetic Resonance Report ---
MRI OF THE BRAIN WITHOUT CONTRAST CLINICAL HISTORY: Transient ischemic attack COMPARISON STUDY: Noncontrast head CT dated 12/30/2018 FINDINGS: Sagittal T1, axial diffusion, proton density and T2 weighted axial, coronal FLAIR, and axial T1-weigh macie images were acquired. No intra or extra-axial mass lesions are visualized Axial diffusion-weighted images reveal no evidence of acute or subacute infarction. There is no evidence of ventricular dilatation. Proton density T2-weighted and FLAIR images reveal moderately extensive foci of increased T2 signal w ithin the white matter, likely on a small vessel basis. There are no abnormal flow voids. There is a right mastoid effusion IMPRESSION: 1. No acute intracranial findings 2. No evidence of acute or subacute infarction 3. No evidence of intracranial mass on this noncontrast study 4. Moderately extensive foci of increased T2 signal within the white matter likely a small vessel bas is 5. Right mastoid effusion Electronically signed by: Angel Luis Grewal M.D. 12/31/2018 10:50 AM
--- NOTE | 2018-12-31 10:55 | Magnetic Resonance Report ---
MR ANGIOGRAPHY OF THE [place] NO CONTRAST CLINICAL HISTORY: Transient ischemic attack COMPARISON STUDY: CT angiography dated 12/30/2018 A 3-D [id number]-[id number] MR angiographic sequence of the [place] was performed. Both the source and projection images were reviewed. There is no evidence for anterior circulation intracranial branch occlusion. There is no evidence of intracranial stenosis. There are no lesion suspicious for aneurysm. There is evidence for occlusion o f the distal left vertebral artery with reconstituted flow at the skull base. IMPRESSION: 1. 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 No evidence of anterior circulation intracranial branch occlusion or major stenosis. 3. No evidence of aneurysm Electronically signed by: Angel Luis Grewal M.D. 12/31/2018 10:53 AM
--- NOTE | 2018-12-31 11:51 | Neurology Consultation ---
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 NIHSS 0. Symptoms resolved prior to admission. Patient admitted for stroke evalution. CTA head and neck showed occlusion of left vertebral artery. MRI Negative for acute or subacute stroke. - I believe this patient likely had a TIA. May also have component of CTS. NIHSS currently 0. Non focal examine. - He was taking ASA 3x weekly at home. Recommend dual antiplalet ASA 81 mg daily and Plavix 75 mg daily x21 days. Then ASA 81 mg daily. - Recommend changing statin to Lipitor 40 mg daily. - Recommend TTE with shunt. - Recommend Zio patch or cardiac event monitor as outpatient. - Continue telemetry while inpatient. - SBP goal <140 mm Hg, DBP<90 - HA1c<7 - LDL<70 Follow up in Neurology clinic in 8-weeks. Will arrange for EMG as outpatient for evaluation of CTS. History of Present Illness Attending Physician: Janny Ramachandran, HPI: A 78 year old male admitted on 12/30/2018 for intermittent right sided weakness and nmbness. Symptoms last 15 minutes then resolved. States this episode occured on Tuesday night when he was getting into bed he developed acute onset of right arm numbness, "my arm got very heavy and I could not move it". He had no facial droop. He does report some right leg numbness and mild trouble speaking. He had a similar episode on 12/30/2018 which also resloved and describes as right arm numbness that started at his right hand and extended custodial up his right forearm, lasted a few minutes and resolved. This time there was no associated weakness or heaviness to the arm. Allergies Allergy/AdvReac Type Severity Reaction Status Date / Time bee venom protein (honey bee) Allergy Unknown Unverified 12/30/18 20:55 Home Medications Home Medications Medication Instructions Recorded Confirmed Type aspirin 81 mg PO DAILY 12/30/18 12/30/18 History benazepril 10 mg PO DAILY 12/30/18 12/30/18 History citalopram 20 mg PO DAILY 12/30/18 12/30/18 History glimepiride 2 mg PO QAM 12/30/18 12/30/18 History lovastatin 20 mg PO DAILY 12/30/18 12/30/18 History metformin 500 mg PO BID 12/30/18 12/30/18 History tamsulosin 0.4 mg PO DAILY 12/30/18 12/30/18 History tramadol 50 mg PO Q8H PRN 12/30/18 12/30/18 History Patient History Medical History Depression (Chronic) HLD (hyperlipidemia) (Chronic) BPH (benign prostatic hyperplasia) (Chronic) PUD (peptic ulcer disease) (Chronic) Diabetes (Chronic) HTN (hypertension) (Chronic) Asthma (Chronic) Bronchitis (Resolved) PNA (pneumonia) (Resolved) Rectal bleeding (Resolved) Stomach problems (Resolved) UGIB (upper gastrointestinal bleed) (Resolved) Surgical History History of colonoscopy with polypectomy (Chronic) History of esophagogastroduodenoscopy (EGD) (Chronic) Family History Father , 71 Heart disease Mother Alzheimer disease Parkinsons disease Social History Communication Ability: Effective Beliefs That Will Affect Care: None marital status: Current Living Situation: Spouse current occupational status: retired Other Information That Helps Us Care for You: No Feels Safe at Home: Yes Safety Concerns: Feels Safe At This Time Smoking Status: Former smoker Hx Alcohol Use: No Hx Substance Use: No Physical Exam Vital Signs (Past 24 Hours): Last Vital Signs Temp 36.9 C 12/31/18 11:26 Pulse 59 L 12/31/18 11:26 Resp 18 12/31/18 11:26 BP 179/87 H 12/31/18 11:26 Pulse Ox 97 12/31/18 11:26 Physical Exam: EXAM: Constitutional: appearance normally developed, well nourished Head and Face: normocephalic and atraumatic Eyes: normal lids, normal conjunctiva, fundi visualized Neck: supple Respiratory: normal effort Cardiovascular: normal pulses Abdomen: non distended Skin: no rashes, lesions, or ulcers noted Psychiatric: normal judgement and insight, normal mood and normal affect NEUROLOGIC EXAMINATION: Appearance: no acute distress Orientation: awake, alert and oriented x 3 Mental Status: alert Attention: normal Knowledge: appropriate Language: no aphasia Speech: no dysarthria Cranial Nerves: CN 2 - no visual defect on confrontation and pupils round, equal, reactive to light CN 3, 4, 6 - extra-ocular movements intact and no nystagmus CN 5 - facial sensation intact CN 7 - no facial asymmetry CN 8 - intact hearing CN 9, 10 - palate symmetric CN 11 - good shoulder shrug CN 12 - tongue midline Gait: deferred Coordination: no ataxia with finger to nose testing Sensory: intact and symmetric to light touc Muscle Tone: normal No ABP or FDI atrophy Reflexes: No clonus, Rodriguez negative, toes down going Results & Data Medications Administered MRI Brain 1. No acute intracranial findings 2. No evidence of acute or subacute infarction 3. No evidence of intracranial mass on this noncontrast study 4. Moderately extensive foci of increased T2 signal within the white matter likely a small vessel basis 5. Right mastoid effusion MRA Brain 1. 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 No evidence of anterior circulation intracranial branch occlusion or major stenosis. 3. No evidence of aneurysm Head and Neck CTA 1. There is no hemorrhage, mass effect, or evidence of acute territorial ischemia by CT criteria. 2. Unremarkable CT angiogram of the brain. 3. The carotid arteries and the right vertebral artery are widely patent. 4. 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 This is reconstituted at the skull base, likely via retrograde flow. 5. Large right mastoid effusion. 6. There is a 2 cm low-attenuation nodule in the right lobe of the thyroid gland. This can be followed with a nonemergent thyroid ultrasound if clinically warranted.
--- NOTE | 2018-12-31 16:02 | Hospitalist Progress Note ---
Date of Service December 31, 2018 Assessment & Plan (1) TIA (transient ischemic attack): This is a 78-year-old male who has a significant past medical history of T2 DM, HTN, HLD, BPH, chronic back pain who presents to [facility] secondary to right sided numbness, weakness that developed approximately 3 days ago. Symptoms are completely resolved. In ED CTA of head and neck was negative for acute abnormality; however did reveal a left vertebral artery diminutive age-indeterminate complete thrombus of the distal left vertebral artery. CBC was relatively unremarkable. BMP significant for elevated BUN 24, creatinine 1.05, glucose 172. Patient is being admitted for suspected TIA like symptoms and further workup. Of significance CTA did reveal thrombus of left vertebral artery. Please refer to Dr. Vizcaino addendum for further details of assessment and plan. (2) Thrombosis of left vertebral artery: (3) HTN (hypertension): -Blood pressure controlled on benazepril (4) Diabetes: -Hold oral hypoglycemics metformin and glimepiride -Lantus and NovoLog per protocol -Obtain A1c in a.m., last A1C 7.1 08/2018 (5) HLD (hyperlipidemia): -Continue statin -Check fasting lipid panel (6) BPH (benign prostatic hyperplasia): -Continue Flomax (7) Depression: -continue citalopram DVT prophylaxis: Per Dr. Vizcaino Disposition: Discharge to home when able Follow-up: PCP Dr. Brush upon discharge Patient was seen and examined in collaboration with Dr. Vizcaino, please see addendum Physical Exam Vital Signs (Past 24 Hours): Last Vital Signs Temp 37.3 C 12/31/18 15:19 Pulse 72 12/31/18 15:19 Resp 20 12/31/18 15:19 BP 144/75 H 12/31/18 15:19 Pulse Ox 93 12/31/18 15:19
[2018-12-31] MEDS ORDERED: LOVASTATIN 20 MG TAB PO SCH (21:00)
[2018-12-31] MEDS ORDERED: ATORVASTATIN 40 MG TAB PO SCH (21:00)
[2019-01-01 06:03] LABS: Estimated Average Glucose 160 mg/dl; Hemoglobin A1C 7.2 % (4.5-5.6)
[2019-01-01] MEDS ORDERED: PERFLUTREN LIPID MICROSPHERE (DEFINITY) IV ONE (08:02)
[2019-01-01] MEDS: INSULIN ASPART 100 UNITS/ML 3 ML PEN SC SCH ×3 (08:08→17:53)
[2019-01-01] MEDS: CLOPIDOGREL BISULFATE 75 MG TAB PO SCH (08:09)
[2019-01-01] MEDS: ENALAPRIL MALEATE 5 MG TAB PO SCH (08:09)
[2019-01-01] MEDS: CITALOPRAM 20 MG TAB PO SCH (08:09)
[2019-01-01] MEDS: ASPIRIN 81 MG ECTAB PO SCH (08:10)
[2019-01-01] MEDS: ENOXAPARIN INJ 40 MG/0.4 ML SYR SQ SCH (08:10)
[2019-01-01] MEDS: TAMSULOSIN HCL 0.4 MG CAP PO SCH (08:10)
[2019-01-01] MEDS ORDERED: INSULIN GLARGINE SOLOSTAR 100 UNITS/ML 3 ML PEN SC SCH (09:00)
--- NOTE | 2019-01-01 12:27 | Hospitalist Progress Note ---
Date of Service January 01, 2019 Assessment & Plan (1) TIA (transient ischemic attack): R hand numbness/weakness subjectively that resolved by admission to the ER, but then reappeared. It is now resolved. This is thought to be consistent with a TIA and Plavix has been added to ASA. His statin has been changed to Lipitor 40. Awaiting TTE results and will recommend Zio as outpatient. Of note, MRA head overnight reveals occluded distal L vertebral artery. (2) HTN (hypertension): Controlled on current medications. (3) Diabetes: at inpatient goal hold outpatient oral hypoglycemics cont Lantus and Novolog (4) BPH (benign prostatic hyperplasia): Continue Flomax (5) Depression: Stable, continue citalopram (6) DVT prophylaxis: Lovenox Full Dispo-poss to home today after TTE reading and Neurology clearance. Janny Ramachandran DO [facility] Hospitalist Subjective doing well this am states hand numbness resolved overnight o/w asymptomatic no issues with walking or swallowing. Physical Exam Vital Signs (Past 24 Hours): Last Vital Signs Temp 36.7 C 01/01/19 11:15 Pulse 54 L 01/01/19 11:15 Resp 16 01/01/19 11:15 BP 124/71 01/01/19 11:15 Pulse Ox 96 01/01/19 11:15 CONSTITUTIONAL: WNWD, vitals as above, generally well-appearing EYES: EOMI bilaterally, PERRL, normal conjuctivae, no scleral icterus ENT: MMM RESPIRATORY: clear to auscultation bilaterally, no crackles, rales or wheezes, normal respiratory effort CARDIOVASCULAR: regular rate and rhythm, S1 and 2 heard without murmurs, gallops or rubs, no JVD, no peripheral edema GASTROINTESTINAL: normal bowel sounds, soft, nontender, nondistended MUSCULOSKELETAL: strength 5/5 throughout, head is normocephalic and atraumatic SKIN: warm and dry NEUROLOGIC: PERRL, EOMI, no facial palsy, no dysarthria. CN 2-12 grossly intact, no sensory deficit, normal cognition, normal speech PSYCHIATRIC: alert cooperative and oriented to person, place and time. Euthymic mood, makes good eye contact, language grossly intact, recent and remote memory grossly intact. Results & Data Medications Administered Current Inpatient Medications Acetaminophen (Tylenol) 650 mg PO Q4H PRN PRN Reason: Pain or Fever Stop: 01/29/19 23:52 Aspirin (Ecotrin Ectab) 81 mg PO DAILY [facility] Stop: 01/30/19 08:59 Last Admin: 01/01/19 08:10 Dose: 81 mg Documented by: Atorvastatin Calcium (Lipitor) 40 mg PO HS [facility] Stop: 01/30/19 20:59 Last Admin: 12/31/18 21:52 Dose: 40 mg Documented by: Citalopram Hydrobromide (Celexa) 20 mg PO DAILY [facility] Stop: 01/30/19 08:59 Last Admin: 01/01/19 08:09 Dose: 20 mg Documented by: Clopidogrel Bisulfate (Plavix) 75 mg PO QAM [facility] Stop: 01/30/19 08:59 Last Admin: 01/01/19 08:09 Dose: 75 mg Documented by: Dextrose (Dextrose 50%) 25 - 50 ml IV UD PRN; Protocol PRN Reason: Hypoglycemia Protocol Stop: 01/29/19 23:54 Enalapril Maleate (Vasotec) 2.5 mg PO DAILY [facility] Stop: 01/30/19 08:59 Last Admin: 01/01/19 08:09 Dose: 2.5 mg Documented by: Enoxaparin Sodium (Lovenox) 40 mg SQ QAM [facility] Stop: 01/30/19 08:59 Last Admin: 01/01/19 08:10 Dose: 40 mg Documented by: Glucagon (Glucagen) 1 mg SQ UD PRN; Protocol PRN Reason: Hypoglycemia Protocol Stop: 01/29/19 23:54 Glucose (Glucose 40%) 15 - 30 gm PO UD PRN; Protocol PRN Reason: Hypoglycemia Protocol Stop: 01/29/19 23:54 Glucose (Dex4 Glucose) 4 - 8 tabs PO UD PRN; Protocol PRN Reason: Hypoglycemia Protocol Stop: 01/29/19 23:54 Insulin Aspart (Novolog Flexpen) 0 units SC ACHS [facility] Stop: 01/30/19 01:59 Last Admin: 01/01/19 08:08 Dose: 1 units Documented by: Insulin Glargine (Lantus Solostar Pen) 5 units SC DAILY [facility] Stop: 01/31/19 08:59 Last Admin: 01/01/19 08:09 Dose: 5 units Documented by: Miscellaneous (Carbohydrates For Hypoglycemia) 15 - 30 gm PO UD PRN PRN Reason: Hypoglycemia Treatment Stop: 01/29/19 23:54 Nitroglycerin (Nitrostat) 0.4 mg SL UD PRN PRN Reason: Chest Pain Stop: 01/29/19 23:52 Tamsulosin HCl (Flomax) 0.4 mg PO DAILY [facility] Stop: 01/30/19 08:59 Last Admin: 01/01/19 08:10 Dose: 0.4 mg Documented by: Tramadol HCl (Ultram) 50 mg PO Q8H PRN PRN Reason: Pain Stop: 01/30/19 01:08 Last Admin: 12/31/18 11:17 Dose: 50 mg Documented by:
--- NOTE | 2019-01-01 14:52 | Neurology Progress Note ---
Date of Service January 01, 2019 Assessment & Plan (1) TIA (transient ischemic attack): 1. plavix 75 mg and aspirin 81 mg x 21 days and then aspirin 81 mg daily for life- was not taking aspirin daily prior to event 2. optimize DM, HLD, HTN LDL <70 3. TTE - awaiting results 4. MRI with no evidence of stroke 5. CT head and neck - no evidence of significant stenosis, left vertebral artery chronic thrombus - continue platelet therapy 6. out patient ZIO or cardio net- r/o irregular HR 7. EMG - CTS as out patient 8. OK to discharge from neurologic stand point once TTE is resulted follow up with neurology 4-6 weeks [facility] PAC schedule Supervising Physician Co-Signing Physician Notes I have seen and discussed above patient with Dr Alistair Stone. Patient was seen and examined. Reports feeling better and ready to go home TTE completed and negative for cardiac source of embolism. EF 70%. Recommend dual antiplatlet for 21 days and high intensity statin for secondary stroke prevention. Follow up in neurology clinic as outpatient. Will arrange for EMG for CTS eval. Lito Angel is a 78 year old male with PMH DM 2, HTN, HLD, BPH, chronic back pain who presents to [facility] secondary to right sided numbness, weakness that developed approximately 3 days ago. states Tuesday night when he was getting into bed he developed acute onset of right arm numbness, "my arm got very heavy and I could not move it," weakness that lasted approximately 15 minutes prior to resolving. He also had associated right leg numbness but no overt weakness. He feels like at the time he was having difficulty speaking; however, family denies any slurred speech or facial droop. Symptoms resolve but then returned in later in the day he developed right arm numbness that started at his right hand and extended long-term up his right forearm, lasted a few minutes and resolved but no associated weakness or heaviness to the arm. he d ose drink energy drinks one daily, monster. Today he states he has a mild headache but was relieved with tylenol. He has been sleeping but states he thinks he is ready to go home. denies CP, SOB, ab dominal pain, one sided weakness, numbness tingling, N, V, vision changes Physical Exam Vital Signs (Past 24 Hours): Last Vital Signs Temp 36.7 C 03/18/19 11:15 Pulse 54 L 01/01/19 11:15 Resp 16 01/01/19 11:15 BP 124/71 01/01/19 11:15 Pulse Ox 96 01/01/19 11:15 Gen: alert NAD lungs CTA CV RRR no pronator drift hand inside sales biceps triceps 5/5 bilaterally hip flex patellar flex ext 5/[address], where he lives and years . Results & Data Laboratory Results Abnormal lab results 12/30/18 12/31/18 12/31/18 Range/Units 20:27 16:21 20:30 POC Glucose 111 H 156 H (70-99) Hemoglobin A1c 7.2 H (4.5-5.6) % 01/01/19 01/01/19 Range/Units 07:39 11:33 POC Glucose 136 H 136 H (70-99) Hemoglobin A1c (4.5-5.6) % Diagnostic Findings MRI brain-No acute intracranial findings No evidence of acute or subacute infarction No evidence of intracranial mass on this noncontrast study Moderately extensive foci of increased T2 signal within the white matter likely a small vessel basis Right mastoid effusion CTA head/neck- There is no hemorrhage, mass effect, or evidence of acute territorial ischemia by CT criteria. Unremarkable CT angiogram of the brain. The carotid arteries and the right vertebral artery are widely patent. The left vertebral artery is diminutive, and there is there is age-indeterminant complete thrombosis of the distal left vertebral artery in the neck. This is reconstituted at the skull base, likely via retrograde flow. Large right mastoid effusion. There is a 2 cm low-attenuation nodule in the right lobe of the thyroid gland. This can be followed with a non emergent thyroid ultrasound if clinically warranted. TTE pending read
[2019-01-01 15:32] VITALS: PULSE 62; TEMP 98.8; O2SAT 95
--- NOTE | 2019-01-01 17:30 | Discharge Summary ---
Date of Service January 01, 2019 Admission HPI Per Admitting Provider This is a 78-year-old male who has a significant past medical history of T2 DM, HTN, HLD, BPH, chronic back pain who presents to [facility] secondary to right sided numbness, weakness that developed approximately 3 days ago. and son are at bedside. Patient states Tuesday night when he was getting into bed he developed acute onset of right arm numbness, "my arm got very heavy and I could not move it," weakness that lasted approximately 15 minutes prior to resolving. He also had associated right leg numbness but no overt weakness. He feels like at the time he was having difficulty speaking; however, family denies any slurred speech or facial droop. Symptoms completely resolved until this afternoon when he developed right arm numbness that started at his right hand and extended snf up his right forearm, lasted a few minutes and resolved. This time there was no associated weakness or heaviness to the arm. During both events he denied chest pain, shortness of breath, coughing, hemoptysis, lightheadedness, dizziness, syncope, loss of bowel or bladder habits, nausea, vomiting, diarrhea, abdominal pain. He denies any recent illness or fever chills or sweats. His appetite has been good. 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 Never had anything like this in the past. He does admit to drinking sugar free energy drinks one daily, monster. Admission Exam Per Admitting Provider Temp 36.6 C 12/30/18 19:37 Pulse 65 12/30/18 21:36 Resp 16 12/30/18 21:36 BP 163/97 H 12/30/18 21:36 Pulse Ox 94 12/30/18 21:36 Physical Exam: Gen: WD/WN, morbidly obese, male, NAD, sitting up in bed, pleasant, conversing easily Head: Normocephalic, Atraumatic Eyes: Sclera normal, no conjunctival injection, PERRLA, EOMI ENT: Gross hearing intact but hard of hearing, normal pharynx, mucous membranes moist, positive dentures Neck: supple, no adenopathy, No JVD, no bruit, Resp: Clear to auscultation b/l, no wheeze, rales, rhonchi. Normal insp/exp effort, no accessory muscle use CV: Regular rate, regular rhythm, no murmur, rub, gallop, or ectopy Abd: Protuberant abdomen, +BS x 4, soft, nontender, nondistended Musculoskeletal: moves extremities active rom x 4, strength intact, good manager rental strength Extremities: No edema bilaterally Skin: warm, moist, no rash, negative turgor, cap refill < 2sec Neuro: Alert and oriented x 3, speech normal, good mood/affect, cran nerve 2-12 intact grossly : deferred Principal Diagnosis TIA Discharge Data Allergies Allergy/AdvReac Type Severity Reaction Status Date / Time bee venom protein (honey bee) Allergy Unknown Unverified 12/30/18 20:55 Consultations 12/30/18 21:30 ED Decision to Admit Stat 12/30/18 23:53 Consult Neurology Routine 12/30/18 23:55 Consult Case Management - Discharge Planning Routine Consult Case Management - Discharge Planning Routine Ordered Studies 12/30/18 20:01 CT head/brain wo con Stat 12/30/18 20:02 CT angio head w con Stat CT angio neck with con Stat 12/31/18 23:55 MR brain wo con Routine 12/31/18 23:56 MR angio head wo con Routine Hospital Course (1) TIA (transient ischemic attack): (2) Thrombosis of left vertebral artery: (3) HTN (hypertension): (4) Diabetes: (5) HLD (hyperlipidemia): (6) BPH (benign prostatic hyperplasia): (7) Depression: 78-year-old man presented to the Emergency Department with complaints of intermittent episodes of right-sided numbness and weakness beginning 3 days ago. He also reported intermittent headaches the last 3-4 months which were unusual for him. He also reported slight speech changes and occasional neck pain. He had no history of prior stroke. On arrival to the ER he was afebrile and hemodynamically stable and oxygenating well on room air. Neurologic exam revealed no focal deficits as his symptoms had resolved at that point. He was given Plavix in addition to baby aspirin, which he takes at home, and was admitted to the hospitalist service. Neurology was consulted. Lab work was unremarkable including a lipid panel revealing an LDL of 100 and HDL of 35. He was monitored on telemetry and remained in sinus rhythm during his entire admission. Head CT and CTA of the head and neck revealed no hemorrhage, mass- effect or evidence of acute territorial ischemia. The carotid arteries in the right vertebral artery were widely patent but the left vertebral artery was diminutive and there was age-indeterminate complete thrombosis of the distal left vertebral artery in the neck. There was also a 2 cm low-attenuation nodule in the right lobe of the thyroid gland that can be followed nonurgently as an outpatient with ultrasound if clinically warranted. Will defer this to primary care provider. A brain MRI without contrast was also ordered and revealed no acute intracranial findings, no evidence of acute or subacute infarction, no evidence of intracranial mass on this noncontrasted study, and no evidence of intracranial mass. Further vascular imaging with an MRA of the [place] without contrast revealed occlusion of the distal left vertebral artery with reconstituted flow in the skull base and there was no evidence of anterior circulation intracranial branch occlusion or major stenosis. There was also no evidence of aneurysm. An echocardiogram with bubble study was performed which revealed a hyperdynamic LV and no intra-atrial shunt. At time of discharge he was hemodynamically stable and afebrile. He was tolerating p.o. and was ambulating at baseline. Of note he was evaluated formally by physical therapy, occupational therapy and speech therapy while admitted. He demonstrated independent level of mobility at all times. He demonstrated no issues with swallowing. Per Neurology recommendations this was a TIA, and subsequently, the patient will be on aspirin and Plavix for the next 3 months and continue with aspirin 81 mg daily indefinitely after that time. He will need an outpatient 14-day event monitor to ensure no arrhythmia is present. He will need neurology follow-up in 4-[address] instructed with [facility]. They are considering an EMG study for possible carpal tunnel syndrome. At time of discharge there were no deficits on physical exam and he was discharged in stable condition. Close primary care follow-up was recommended. Total Time Total Time Spent Total Time Spent (In Minutes): 60 Total Time Includes: Examination of the Patient, Discharge Planning, Medication Reconciliation and Communication With Other Providers Discharge Plan Discharge Items Patient Disposition: Home - Self-Care Reason For Visit: TIA Discharge Diagnosis: TIA Discharge Goals: Improve disease control Activity: Resume your previous activity Non-emergency contact: Primary Care Provider Call non-emergency contact if: you have any medication questions, your symptoms worsen, your pain is not controlled, your pain is worsening, your pain is unusual for you, your pain is concerning for you and you have a fever Follow-up/Referrals: David Brush MD [Primary Care Provider] - Diet: Carb Consistent or DM2 and Heart Healthy Addtl Provider Instructions: Please take all medications as instructed on discharge list below. You will need to have a 14 day event monitor placed to monitor your heart rhythm. This can be ordered through your primary care provider on follow-up. It is recommended that you follow-up with your primary care physician in one week. You will need to follow-up with Dr. Stone or Princess Napoles PA-C within the next 4-[address] [facility] to set up this appointment. It was a pleasure taking care of you! Please call if you have any questions or problems. You can reach a [facility] hospitalist on duty at [facility] 24 hours a day by calling [phone]. Take care of yourself. Janny Ramachandran, DO [facility] Hospitalist Prescriptions: New clopidogrel 75 mg Tablet 75 mg PO QAM Qty: 30 RF: 1 atorvastatin 40 mg Tablet 40 mg PO HS Qty: 30 RF: 1 Continued metformin 500 mg Tablet 500 mg PO BID RF: 0 citalopram 20 mg Tablet 20 mg PO DAILY RF: 0 tamsulosin 0.4 mg Capsule 0.4 mg PO DAILY RF: 0 aspirin 81 mg Tablet,Delayed Release (Dr/Ec) 81 mg PO DAILY RF: 0 tramadol 50 mg Tablet 50 mg PO Q8H PRN (Reason: Pain) RF: 0 glimepiride 2 mg Tablet 2 mg PO QAM RF: 0 benazepril 10 mg Tablet 10 mg PO DAILY RF: 0 Discontinued lovastatin 20 mg Tablet 20 mg PO PM RF: 0 Stand-Alone Forms: My [facility] Discharge Orders: Discharge Order (Routine); Ordered 01/01/19 Ordered By: Janny Ramachandran Admission Data Admit Date/Time: 12/30/18 23:52 Attending Provider: Janny Ramachandran Admit Provider: Sarabjit Tate Primary Care Provider: David Brush Other Providers: Sarabjit Tate ; Alistair Stone Service: Telemetry Medical
[2019-01-01 17:59] VITALS: BP 179/87
--- NOTE | 2019-01-05 17:34 | Hospitalist Progress Note ---
Date of Service December 31, 2018 Assessment & Plan (1) TIA (transient ischemic attack): (1) TIA (transient ischemic attack): R hand numbness/weakness subjectively that resolved by admission to the ER, but then reappeared. This is thought to be consistent with a TIA and Plavix has been added to ASA. Switch Lovastatin to Lipitor. Order TTE, and will recommend Zio as outpatient. Neuro to see patient. (2) HTN (hypertension): Controlled on current medications. (3) Diabetes: at inpatient goal hold outpatient oral hypoglycemics cont Lantus and Novolog (4) BPH (benign prostatic hyperplasia): Continue Flomax (5) Depression: Stable, continue citalopram (6) DVT prophylaxis: Lovenox Full Dispo-home pending completion of workup. Janny Ramachandran DO [facility] Hospitalist Subjective Feels improved today. Reports some return of his R hand numbness today. Otherwise reports no focal deficits that are concerning. Tolerating PO and ambulating at baseline independently. Swallow intact. Physical Exam Vital Signs (Past 24 Hours): Last Vital Signs Temp 37.1 C 01/01/19 17:56 Pulse 62 01/01/19 17:56 Resp 18 01/01/19 17:56 BP 179/87 H 01/01/19 17:56 Pulse Ox 95 01/01/19 17:56 CONSTITUTIONAL: WNWD, vitals as above, generally well-appearing EYES: EOMI bilaterally, PERRL, normal conjuctivae, no scleral icterus ENT: MMM RESPIRATORY: clear to auscultation bilaterally, no crackles, rales or wheezes, normal respiratory effort CARDIOVASCULAR: regular rate and rhythm, S1 and 2 heard without murmurs, gallops or rubs, no JVD, no peripheral edema GASTROINTESTINAL: normal bowel sounds, soft, nontender, nondistended MUSCULOSKELETAL: strength 5/5 throughout, head is normocephalic and atraumatic SKIN: warm and dry NEUROLOGIC: PERRL, EOMI, no facial palsy, no dysarthria. CN 2-12 grossly intact, no sensory deficit, normal cognition, normal speech PSYCHIATRIC: alert cooperative and oriented to person, place and time. Euthymic mood, makes good eye contact, language grossly intact, recent and remote memory grossly intact.
== END 2019-01-01 18:17 | disposition home or self-care (01) ==
LOC: 2N 19:35 → ED 19:35 → 2N 12-31 00:32

== ENCOUNTER 2021-09-22 18:06 | Inpatient (IN) ==
[2021-09-22] MEDS ORDERED: SODIUM CHLORIDE 0.9% 500 ML IV STA (19:06)
--- NOTE | 2021-09-22 19:10 | Emergency Department Note ---
Impression & Plan Diverticulitis, Hypoxia ED Provider Note NAME: RADHA UREÑA AGE: 81 SEX: M : 1940 ARRIVES VIA: Ambulance INFORMANT: Patient, ED PROVIDER(S): Tyson Ralph DO CHIEF COMPLAINT: Shaking HPI: The patient is an 81-year-old male who presented to the emergency department for an evaluation of shaking episodes. The patient states at home he was having episodes of shaking over his entire body. These were not seizures. The patient was awake during the entire episode. He describes some dizziness and some lower abdominal pain. He does have a history of diverticulitis. He denies having any dysuria or frequency. He denies having any back pain. He has had no chest pain. He denies having any difficulty breathing but was placed on oxygen prior to arrival. The patient states he had a similar episode in the past which resolved spontaneously. He was never seen for those symptoms. The patient at this time states he feels at his baseline. He does not have any headache. He was completely vaccinated for COVID-19. ROS: See above HPI for pertinent positives & negatives. A total of 10 systems reviewed and were otherwise negative. PAST MEDICAL HISTORY: See Below PAST SURGICAL HISTORY: See Below FAMILY HISTORY: See Below SOCIAL HISTORY: See Below HOME MEDICATIONS: See Below ALLERGIES: See Below VITALS: See Below PHYSICAL EXAMINATION: GENERAL: Patient is awake alert in no acute distress patient is resting comfortably and showing no signs of anxiety EYES: The conjunctivae are clear. The pupils are round and reactive. EARS, NOSE, MOUTH AND THROAT: The nose is without any evidence of any deformity. Mucous membranes are moist. Tongue is midline. NECK: The neck is nontender and supple. RESPIRATORY: Diminished breath sounds are noted throughout. There is no tachypnea or conversational dyspnea. CARDIOVASCULAR: Regular rate and rhythm noted there no murmurs rubs or gallops normal S1 normal S2. GASTROINTESTINAL: The abdomen is soft and mildly distended. There is suprapubic tenderness to palpation but no guarding or rigidity. MUSCULOSKELETAL/EXTREMITIES: There is no evidence of gross deformity full range of motion is noted in the hips and shoulders. SKIN: The skin is warm and dry. There was trace pedal edema bilaterally. NEUROLOGIC: Patient is awake alert and oriented x3. MEDICAL DECISION MAKING: The patient is an 81-year-old male who presented to the emergency department for an evaluation of rigors. The patient had subjective fevers. He had some abdominal pain as well. I discussed the patient's laboratory and radiographic studies with him. He was treated with IV antibiotics in the emergency department. The patient continued to have hypoxia. I am unsure the cause of his hypoxia. Chest x-ray was obtained and really only showed some mild diffuse interstitial prominence. The patient does not have any specific occupational exposures. Because of these findings I discussed his case with the on-call [facility] hospitalist. They will evaluate the patient in the emergency department for further management and disposition. Triage Nursing notes reviewed. Prior medical records reviewed Vital Signs: reviewed and remarkable for hypoxia. Differential diagnosis: Infection, dehydration, metabolic abnormality, hypo/hyperglycemia, electrolyte disturbance, anemia, hypoxia, cardiac sources, intracerebral event, toxicologic, neurologic, as well as other pathologies. ER treatment provided: See below Diagnostics interpreted by me: ECG: EKG was obtained in the emergency department. My interpretation is sinus rhythm and first-degree AV block at 93 bpm. There is no ectopy. Diffuse ST segment abnormalities were noted. This was compared to a tracing from December 302018. No significant changes were noted. Cardiac Monitoring: An order was placed for continuous cardiac monitoring. The monitor shows a rate of 83 bpm with sinus rhythm. Laboratory studies: As stated above and show below. Imaging studies: See below Consultation(s): I discussed this case with Dr. Riddle who is on-call for the [facility] group. Past Med/Surg History Medical History Asthma BPH (benign prostatic hyperplasia) Bronchitis Depression Diabetes HLD (hyperlipidemia) HTN (hypertension) PNA (pneumonia) PUD (peptic ulcer disease) Rectal bleeding Stomach problems UGIB (upper gastrointestinal bleed) Surgical History History of colonoscopy with polypectomy History of esophagogastroduodenoscopy (EGD) Family History Father , 71 Heart disease Mother Alzheimer disease Parkinsons disease Social History Smoking Status: Former smoker Hx Alcohol Use: No Hx Substance Use: No Preferred Language: Omani Communication Ability: Effective Hearing Ability: Hard of Hearing Cafeteria Aide Required: No Beliefs That Will Affect Care: None marital status: Current Living Situation: Spouse current occupational status: retired Feels Safe at Home: Yes Assistive Devices: None Allergies Allergies Allergy/AdvReac Type Severity Reaction Status Date / Time bee venom protein (honey bee) Allergy Unknown Unverified 12/30/18 20:55 Home Meds Home Medications Medication Instructions Recorded Confirmed aspirin 81 mg tablet,delayed 81 mg PO DAILY 12/30/18 09/22/21 release benazepril 10 mg tablet 10 mg PO DAILY 12/30/18 09/22/21 citalopram 20 mg tablet 20 mg PO DAILY 12/30/18 09/22/21 metformin 500 mg tablet 500 mg PO BID 12/30/18 09/22/21 tamsulosin 0.4 mg capsule 0.4 mg PO DAILY 12/30/18 09/22/21 tramadol 50 mg tablet 50 mg PO BID PRN 12/30/18 09/22/21 Prevagen 1 dose PO DAILY 09/22/21 09/22/21 cholecalciferol (vitamin D3) 25 25 mcg PO DAILY 09/22/21 09/22/21 mcg (1,000 unit) tablet lactobacillus combination no.4 3 See Rx Instructions .ROUTE .COMPLEX 09/22/21 09/22/21 billion cell capsule (Probiotic) Previous Rx's Medication Instructions Recorded atorvastatin 40 mg tablet 40 mg PO HS #30 tab 01/01/19 amoxicillin 875 mg-potassium 1 tab PO TID #30 tab 09/22/21 clavulanate 125 mg tablet (Augmentin) Results & Data (ED) Vital Signs Vital Signs - 24 hr 09/22/21 18:17 09/22/21 20:13 09/22/21 20:20 Temperature 37.2 C Temperature Source Oral Pulse Rate 98 H 106 H 95 H Pulse Rhythm Regular Respiratory Rate 18 22 19 Respiratory Pattern Regular Blood Pressure 130/75 Blood Pressure Mean 93 Pulse Oximetry 94 92 94 Oxygen Delivery Method Nasal Cannula Nasal Cannula Nasal Cannula Oxygen Flow Rate 2 2 2 Sepsis Recent Fever Within 48 Hours No Sepsis New/Unexplained Change in Mental Status No Sepsis Action Taken by Nursing No Action Required 09/22/21 20:30 09/22/21 20:40 09/22/21 20:50 Temperature Temperature Source Pulse Rate 94 H 93 H 93 H Pulse Rhythm Respiratory Rate 21 24 19 Respiratory Pattern Blood Pressure Blood Pressure Mean Pulse Oximetry 93 93 92 Oxygen Delivery Method Nasal Cannula Nasal Cannula Nasal Cannula Oxygen Flow Rate 2 2 2 Sepsis Recent Fever Within 48 Hours Sepsis New/Unexplained Change in Mental Status Sepsis Action Taken by Nursing 09/22/21 21:00 09/22/21 21:10 09/22/21 21:20 Temperature Temperature Source Pulse Rate 90 89 90 Pulse Rhythm Respiratory Rate 18 17 16 Respiratory Pattern Blood Pressure Blood Pressure Mean Pulse Oximetry 93 93 92 Oxygen Delivery Method Nasal Cannula Nasal Cannula Nasal Cannula Oxygen Flow Rate 2 2 2 Sepsis Recent Fever Within 48 Hours Sepsis New/Unexplained Change in Mental Status Sepsis Action Taken by Nursing 09/22/21 21:30 09/22/21 21:40 09/22/21 21:50 Temperature Temperature Source Pulse Rate 88 89 92 H Pulse Rhythm Respiratory Rate 13 21 14 Respiratory Pattern Blood Pressure 105/65 Blood Pressure Mean 78 Pulse Oximetry 89 L 90 88 L Oxygen Delivery Method Room Air Room Air Room Air Oxygen Flow Rate Sepsis Recent Fever Within 48 Hours Sepsis New/Unexplained Change in Mental Status Sepsis Action Taken by Nursing 09/22/21 22:00 09/22/21 22:10 09/22/21 22:20 Temperature Temperature Source Pulse Rate 88 88 85 Pulse Rhythm Respiratory Rate 21 17 24 Respiratory Pattern Blood Pressure 130/74 Blood Pressure Mean 92 Pulse Oximetry 89 L 91 92 Oxygen Delivery Method Room Air Room Air Room Air Oxygen Flow Rate 2 Sepsis Recent Fever Within 48 Hours Sepsis New/Unexplained Change in Mental Status Sepsis Action Taken by Nursing 09/22/21 22:30 09/22/21 22:40 09/22/21 22:50 Temperature Temperature Source Pulse Rate 86 88 83 Pulse Rhythm Respiratory Rate 24 18 15 Respiratory Pattern Blood Pressure Blood Pressure Mean Pulse Oximetry 91 91 92 Oxygen Delivery Method Room Air Room Air Room Air Oxygen Flow Rate Sepsis Recent Fever Within 48 Hours Sepsis New/Unexplained Change in Mental Status Sepsis Action Taken by Nursing 09/22/21 23:00 09/22/21 23:10 Temperature Temperature Source Pulse Rate 84 83 Pulse Rhythm Respiratory Rate 23 15 Respiratory Pattern Blood Pressure Blood Pressure Mean Pulse Oximetry 92 93 Oxygen Delivery Method Room Air Room Air Oxygen Flow Rate Sepsis Recent Fever Within 48 Hours Sepsis New/Unexplained Change in Mental Status Sepsis Action Taken by Custodial Medications Current Medication List: was personally reviewed by me Laboratory Data Attestation: I reviewed the patient's lab results. Result diagrams: 12/07/21 20:10 09/22/21 20:10 Lab Results 09/22/21 09/22/21 09/22/21 Range/Units 20:10 20:10 20:10 WBC 10.50 (4.8-10.8) K/uL RBC 4.45 L (4.7-6.1) M/uL Hgb 13.6 L (14.0-18.0) g/dL Hct 40.1 L (42-52) % MCV 90.1 (80-100) fL MCH 30.6 (25-34) pg MCHC 33.9 (32-36) g/dL RDW Std Deviation 43.5 (36.4-46.3) fL RDW Coeff of Tana 13.0 (11.5-14.5) % Plt Count 154 (130-400) K/uL MPV 9.8 (7.4-10.4) fL Immature Gran % (Auto) 0.3 % Neut % (Auto) 90.8 % Lymph % (Auto) 2.7 % Lynn % (Auto) 5.6 % Eos % (Auto) 0.5 % Baso % (Auto) 0.1 % Neut # (Auto) 9.54 H (1.4-6.5) K/uL Lymph # (Auto) 0.28 L (1.2-3.4) K/uL Lynn # (Auto) 0.59 (0.11-0.59) K/uL Eos # (Auto) 0.05 (0-0.5) K/uL Baso # (Auto) 0.01 (0-0.2) K/uL Immature Gran # (Auto) 0.03 H (0.00-0.02) K/uL PT 10.8 (9.0-12.0) Seconds INR 1.1 (0.9-1.1) APTT 23.9 (21.0-31.0) Seconds PTT Ratio 0.9 Sodium 135 L (136-145) mmol/L Potassium 3.6 (3.5-5.1) mmol/L Chloride 104 (98-107) mmol/L Carbon Dioxide 23 (21-32) mmol/L Anion Gap 8.0 (3-11) BUN 18 (7-18) mg/dl Creatinine 1.02 (0.6-1.4) mg/dl Est Cr Clr Drug Dosing Not Reportable Est GFR ( Amer) 79.5 ml/min Est GFR (Non-Af Amer) 68.6 ml/min BUN/Creatinine Ratio 17.2 (10-20) Glucose 169 H (70-99) mg/dl Calcium 9.0 (8.5-10.1) mg/dl Magnesium 1.5 L (1.8-2.4) mg/dl Total Bilirubin 0.7 (0.2-1) mg/dl AST 20 (15-37) U/L ALT 38 (12-78) Alkaline Phosphatase 82 (45-117) U/L Troponin I < 0.015 (0-0.045) ng/ml NT-Pro-B Natriuret Pep 190 (0-1800) pg/ml Total Protein 6.2 L (6.4-8.2) gm/dl Albumin 2.9 L (3.4-5.0) gm/dl Globulin 3.3 (2.5-4.0) gm/dl Albumin/Globulin Ratio 0.9 (0.9-2) Lipase 103 (73-393) U/L Urine Color Urine Appearance (Clear) Urine pH (4.5-7.5) Ur Specific [place] (1.000-1.030) Urine Protein (Negative) Urine Glucose (UA) (Negative) Urine Ketones (Negative) Urine Blood (Negative) Urine Nitrite (Negative) Urine Bilirubin (Negative) Urine Urobilinogen (Negative) Ur Leukocyte Esterase (Negative) SARS-CoV-2, RNA, NAAT (NEGATIVE) 09/22/21 09/22/21 Range/Units 20:20 20:20 WBC (4.8-10.8) K/uL RBC (4.7-6.1) M/uL Hgb (14.0-18.0) g/dL Hct (42-52) % MCV (80-100) fL MCH (25-34) pg MCHC (32-36) g/dL RDW Std Deviation (36.4-46.3) fL RDW Coeff of Tana (11.5-14.5) % Plt Count (130-400) K/uL MPV (7.4-10.4) fL Immature Gran % (Auto) % Neut % (Auto) % Lymph % (Auto) % Lynn % (Auto) % Eos % (Auto) % Baso % (Auto) % Neut # (Auto) (1.4-6.5) K/uL Lymph # (Auto) (1.2-3.4) K/uL Lynn # (Auto) (0.11-0.59) K/uL Eos # (Auto) (0-0.5) K/uL Baso # (Auto) (0-0.2) K/uL Immature Gran # (Auto) (0.00-0.02) K/uL PT (9.0-12.0) Seconds INR (0.9-1.1) APTT (21.0-31.0) Seconds PTT Ratio Sodium (136-145) mmol/L Potassium (3.5-5.1) mmol/L Chloride (98-107) mmol/L Carbon Dioxide (21-32) mmol/L Anion Gap (3-11) BUN (7-18) mg/dl Creatinine (0.6-1.4) mg/dl Est Cr Clr Drug Dosing Est GFR ( Amer) ml/min Est GFR (Non-Af Amer) ml/min BUN/Creatinine Ratio (10-20) Glucose (70-99) mg/dl Calcium (8.5-10.1) mg/dl Magnesium (1.8-2.4) mg/dl Total Bilirubin (0.2-1) mg/dl AST (15-37) U/L ALT (12-78) Alkaline Phosphatase (45-117) U/L Troponin I (0-0.045) ng/ml NT-Pro-B Natriuret Pep (0-1800) pg/ml Total Protein (6.4-8.2) gm/dl Albumin (3.4-5.0) gm/dl Globulin (2.5-4.0) gm/dl Albumin/Globulin Ratio (0.9-2) Lipase (73-393) U/L Urine Color Yellow Urine Appearance Clear (Clear) Urine pH 5.0 (4.5-7.5) Ur Specific [place] 1.020 (1.000-1.030) Urine Protein Negative (Negative) Urine Glucose (UA) Negative (Negative) Urine Ketones 1+ H (Negative) Urine Blood Negative (Negative) Urine Nitrite Negative (Negative) Urine Bilirubin Negative (Negative) Urine Urobilinogen Negative (Negative) Ur Leukocyte Esterase Negative (Negative) SARS-CoV-2, RNA, NAAT NEGATIVE (NEGATIVE) Administered Medications Discontinued Medications Albuterol (Albut/Ipratrop 3mg/0.5mg Neb 3 Ml Vial) 3 ml NEB NOW STA Stop: 09/22/21 23:47 Last Admin: 09/22/21 23:58 Dose: Not Given Documented by: [id number] Albuterol (Albut/Ipratrop 3mg/0.5mg Neb 3 Ml Vial) Confirm Administered Dose 3 ml .ROUTE .STK-MED ONE Stop: 09/22/21 23:50 Last Admin: 09/22/21 23:51 Dose: 3 ml Documented by: [id number] Amoxicillin/Clavulanate Potassium (Amoxicillin/Clavulanate 875mg Home Pack) 1 homepack PO ONE ONE Stop: 09/22/21 21:02 Last Admin: 09/22/21 23:08 Dose: Not Given Documented by: [id number] Sodium Chloride (Nss) 500 mls @ 999 mls/hr IV .Q31M STA Stop: 09/22/21 19:36 Last Infusion: 09/22/21 20:49 Dose: 999 mls/hr Documented by: [id number] Admin: 09/22/21 20:13 Dose: 999 mls/hr Documented by: [id number] Ceftriaxone Sodium (Rocephin) 1,000 mg in 50 mls @ 100 mls/hr IV NOW STA Stop: 09/22/21 20:46 Last Infusion: 09/22/21 21:31 Dose: 100 mls/hr Documented by: [id number] Admin: 09/22/21 20:59 Dose: 100 mls/hr Documented by: [id number] Imaging Data Radiologist's Impression: Abdomen/Pelvis CT 09/22/21 19:06 CT OF THE ABDOMEN AND PELVIS WITHOUT CONTRAST CLINICAL HISTORY: Left lower quadrant abdominal pain. COMPARISON STUDY: CT of the abdomen and pelvis September 27, 2016. TECHNIQUE: Axial images of the abdomen and pelvis were obtained without IV contrast. Images were reviewed in the axial, sagittal, and coronal planes. Automated exposure control was utilized for the study. A dose lowering technique was utilized adhering to the principles of ALARA. FINDINGS: Mild bronchiectasis and subpleural reticulation within the lower lungs is noted. This may reflect interstitial lung disease. No pneumatosis, free air or portal venous gas is present. There is a small hiatal hernia. There are gallstones within the gallbladder. There is no evidence for acute cholecystitis. Unenhanced images of the liver, spleen, adrenal glands and pancreas are unremarkable. A 2.3 centered water attenuation lesion within the midpole the right kidney is suboptimally assessed on this unenhanced exam but shown to reflect a cyst on prior contrast enhanced exam. Symmetric bilateral perinephric stranding is of doubtful significance. Punctate 2 mm left renal calculus is noted. There are no ureteral calculi. There is no hydronephrosis. Probable subcentimeter left renal cyst is noted. There is extensive colonic diverticu losis. Note is made of an inflamed diverticulum of the mid sigmoid colon shown on axial image 279 of 466. There is minimal inflammation. There is no free air or abscess. Moderate amount stool within the rectum is present. Prostate is enlarged. Bladder is mildly distended. Bladder wall irregularity is likely chronic. The appendix is normal. There is no lymphadenopathy or ascites. No acute fracture or suspicious lesion is identified within the visualized skeletal structures. IMPRESSION: 1. Inflamed diverticulum of the mid sigmoid colon. Minimal inflammation. The findings are consistent with acute sigmoid diverticulitis. No free air or absce ss. 2. Extensive colonic diverticulosis. 3. Small hiatal hernia. 4. Cholelithiasis. No evidence for acute cholecystitis. ACT 112: Negative or not required by law. Electronically signed by: Ancelmo Carlson M.D. 09/22/2021 7:41 PM Discharge Plan Visit Data Chief Complaint: Weakness Stated Complaint: weakness ED Provider: Tyson Ralph Discharge Problem: Diverticulitis, Hypoxia Patient Disposition: Being Evaluated by Hospitalist Condition: Good Discharge Instructions [place]/Other Patient Handouts: ED Diverticulitis Activity Restrictions/Additional Instructions: Continue all medications as prescribed. Rest and avoid any strenuous activity. Call your family doctor in the morning to schedule recheck. Continue to use Tylenol directed for pain as well as fever. Return immediately if symptoms change worsen or the need arises. Forms Stand Alone Forms: [facility], Virtual Emergency Department, Important Visit Information Prescriptions Prescriptions: New amoxicillin-pot clavulanate [Augmentin] 875-125 mg tablet 1 tab PO TID Qty: 30 RF: 0 No Action metformin 500 mg Tablet 500 mg PO BID RF: 0 citalopram 20 mg Tablet 20 mg PO DAILY RF: 0 tamsulosin 0.4 mg Capsule 0.4 mg PO DAILY RF: 0 aspirin 81 mg Tablet,Delayed Release (Dr/Ec) 81 mg PO DAILY RF: 0 tramadol 50 mg Tablet 50 mg PO BID PRN (Reason: Pain) RF: 0 benazepril 10 mg Tablet 10 mg PO DAILY RF: 0 atorvastatin 40 mg Tablet 40 mg PO HS Qty: 30 RF: 1 cholecalciferol (vitamin D3) 25 mcg (1,000 unit) Tablet 25 mcg PO DAILY RF: 0 Probiotic 3 billion cell Capsule See Rx Instructions .ROUTE .COMPLEX RF: 0 Prevagen 1 dose PO DAILY RF: 0 Referrals Referrals: David Brush MD [Primary Care Provider] -
--- NOTE | 2021-09-22 19:42 | CT Scan Report ---
CT OF THE ABDOMEN AND PELVIS WITHOUT CONTRAST CLINICAL HISTORY: Left lower quadrant abdominal pain. COMPARISON STUDY: CT of the abdomen and pelvis September 27, 2016. TECHNIQUE: Axial images of the abdomen and pelvis were obtained without IV contrast. Images were revi ewed in the axial, sagittal, and coronal planes. Automated exposure control was utilized for the vandana dy. A dose lowering technique was utilized adhering to the principles of ALARA. FINDINGS: Mild bronchiectasis and subpleural reticulation within the lower lungs is noted. This may r eflect interstitial lung disease. No pneumatosis, free air or portal venous gas is present. There is a small hiatal hernia. There are gallstones within the gallbladder. There is no evidence for acute ch olecystitis. Unenhanced images of the liver, spleen, adrenal glands and pancreas are unremarkable. A 2.3 centered water attenuation lesion within the midpole the right kidney is suboptimally assessed on this unenhanced exam but shown to reflect a cyst on prior contrast enhanced exam. Symmetric bilatera l perinephric stranding is of doubtful significance. Punctate 2 mm left renal calculus is noted. Ther e are no ureteral calculi. There is no hydronephrosis. Probable subcentimeter left renal cyst is note d. There is extensive colonic diverticulosis. Note is made of an inflamed diverticulum of the mid sig moid colon shown on axial image 279 of 466. There is minimal inflammation. There is no free air or ab scess. Moderate amount stool within the rectum is present. Prostate is enlarged. Bladder is mildly di stended. Bladder wall irregularity is likely chronic. The appendix is normal. There is no lymphadenop athy or ascites. No acute fracture or suspicious lesion is identified within the visualized skeletal structures. IMPRESSION: 1. Inflamed diverticulum of the mid sigmoid colon. Minimal inflammation. The findings are consistent with acute sigmoid diverticulitis. No free air or abscess. 2. Extensive colonic diverticulosis. 3. Small hiatal hernia. 4. Cholelithiasis. No evidence for acute cholecystitis. ACT 112: Negative or not required by law. Electronically signed by: Ancelmo Carlson M.D. 09/22/2021 7:41 PM
[2021-09-22] MEDS ORDERED: cefTRIAXone SODIUM 1,000 MG/50 ML BAG IV STA (20:17)
[2021-09-22 20:30] LABS: Appearance Urine Clear (Clear); Bilirubin Urine Negative (Negative); Blood Urine Negative (Negative); Color Urine Yellow; Glucose Urine UA Negative (Negative); Ketones Urine 1+ (Negative); Leukocyte Esterase Urine Negative (Negative); Nitrite Urine Negative (Negative); Protein Urine Negative (Negative); Urobilinogen Urine Negative (Negative)
[2021-09-22 20:32] LABS: Basophils # (auto) 0.01 K/uL (0-0.2); Basophils % (auto) 0.1 %; Eosinophils # (auto) 0.05 K/uL (0-0.5); Eosinophils % (auto) 0.5 %; Hematocrit (blood only) 40.1 % (42-52); Hemoglobin 13.6 g/dL (14.0-18.0); Immature Granulocytes # (auto) 0.03 K/uL (0.00-0.02); Immature Granulocytes % (auto) 0.3 %; Lymphocytes # (auto) 0.28 K/uL (1.2-3.4); Lymphocytes % (auto) 2.7 %; Mean Corpuscular Hemoglobin 30.6 pg (25-34); Mean Corpuscular Hgb Conc 33.9 g/dL (32-36); Mean Corpuscular Volume 90.1 fL (80-100); Mean Platelet Volume 9.8 fL (7.4-10.4); Monocytes # (auto) 0.59 K/uL (0.11-0.59); Monocytes % (auto) 5.6 %; Neutrophils # (auto) 9.54 K/uL (1.4-6.5); Neutrophils % (auto) 90.8 %; Platelet Count 154 K/uL (130-400); RDW Standard Deviation 43.5 fL (36.4-46.3); Red Blood Count 4.45 M/uL (4.7-6.1)
[2021-09-22 20:52] LABS: Alanine Aminotransferase 38 (12-78); Albumin Level 2.9 gm/dl (3.4-5.0); Aspartate Aminotransferase 20 U/L (15-37); BUN Creatinine Ratio 17.2 (10-20); Blood Urea Nitrogen 18 mg/dl (7-18); Carbon Dioxide 23 mmol/L (21-32); Chloride 104 mmol/L (98-107); Est GFR (African American) 79.5 ml/min; Est GFR (Non-African American) 68.6 ml/min; Glucose 169 mg/dl (70-99); INR 1.1 (0.9-1.1); Lipase 103 U/L (73-393); Partial Thromboplastin Ratio 0.9; Partial Thromboplastin Time 23.9 Seconds (21.0-31.0); Potassium 3.6 mmol/L (3.5-5.1); Prothrombin Time 10.8 Seconds (9.0-12.0); Sodium 135 mmol/L (136-145)
[2021-09-22 20:57] LABS: Albumin Globulin Ratio 0.9 (0.9-2); Alkaline Phosphatase 82 U/L (45-117); Bilirubin,Total 0.7 mg/dl (0.2-1); Globulin 3.3 gm/dl (2.5-4.0); Total Protein 6.2 gm/dl (6.4-8.2); Troponin I < 0.015 ng/ml (0-0.045)
[2021-09-22] MEDS ORDERED: AMOXICILLIN/CLAVULANATE 875MG HOME PACK PO ONE (21:01)
[2021-09-22 23:28] LABS: Magnesium 1.5 mg/dl (1.8-2.4); NT Pro B Type Natriuretic Pept 190 pg/ml (0-1800)
[2021-09-22] MEDS ORDERED: ALBUT/IPRATROP 3MG/0.5MG NEB 3 ML VIAL NEB STA (23:46)
--- NOTE | 2021-09-22 23:47 | History & Physical Report ---
Date of Service September 22, 2021 Assessment & Plan (1) Acute hypoxemic respiratory failure: Plan: Patient asymptomatic. Atelectasis on initial CT chest read. Possible interstitial lung disease (Mild bronchiectasis and subpleural reticu lation within the lower lungs noted incidental finding on CT abdomen pelvis read), past tobacco abuse Recurrent diverticulitis, patient not toxic HTN, stable hx TIA as per records DM2 on oral meds, reasonable control as of recent hemoglobin A1c of 7.22 October 2020 hyperlipidemia on statin Rx past tobacco abuse. Medical telemetry Neb trial Incentive spirometry Pulmonary consult if without improvement Clear liquids for now, Augmentin course for diverticulitis Outpatient GI consult for recurrent diverticulitis Basal insulin, ISS BG goal 1 10-1 40, carb count coverage, update hemoglobin A1c DVT prophylaxis per Lovenox subcu Full code Patient requesting update providers. Ms. Bella Nick, contact numbers [phone]. Text document was generated using [employer] voice recognition software. It may contain grammatical or spelling errors. Kindly contact undersigned for clarification of any documentation item in question. History of Present Illness Chief Complaint: Abdominal pain Primary Care Provider: David Brush MD History obtained from patient, family, and records. Medical history significant for HTN, TIA, DM2 on oral meds, hyperlipidemia, diverticulosis, mood disorder, past tobacco abuse. Last confinement December 2018 for TIA. Patient noted heartburn symptoms relieved by 's antacid Rx. Dry cough symptoms resolved 2 days ago. No chest pain, no S OB. This morning, patient noted achy lower abdominal pain with shaking episodes. No chest pain, no S OB no cough symptoms. Patient denies fluid retention at home. Patient unaware of snoring. At the ER. Augmentin given for mild diverticulitis on CT. O2 sats 88 on room air at 1 point during stay at the ER. MEDICAL HISTORY: As above. 2019 colonoscopy showed adenomatous polyp, diverticulosis SURGERIES:Cataract surgeries FAMILY HISTORY:Parkinson's disease, dementia, heart disease PERSONAL AND SOCIAL HISTORY: Past tobacco abuse. 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 Allergies Allergy/AdvReac Type Severity Reaction Status Date / Time bee venom protein (honey bee) Allergy Unknown Unverified 12/30/18 20:55 Home Medications Medication Instructions Recorded Confirmed Type aspirin 81 mg tablet,delayed 81 mg PO DAILY 12/30/18 09/22/21 History release benazepril 10 mg tablet 10 mg PO DAILY 12/30/18 09/22/21 History citalopram 20 mg tablet 20 mg PO DAILY 12/30/18 09/22/21 History metformin 500 mg tablet 500 mg PO BID 12/30/18 09/22/21 History tamsulosin 0.4 mg capsule 0.4 mg PO DAILY 12/30/18 09/22/21 History tramadol 50 mg tablet 50 mg PO BID PRN 12/30/18 09/22/21 History atorvastatin 40 mg tablet 40 mg PO HS #30 tab 01/01/19 09/22/21 Rx Prevagen 1 dose PO DAILY 09/22/21 09/22/21 History amoxicillin 875 mg-potassium 1 tab PO TID #30 tab 09/22/21 Rx clavulanate 125 mg tablet (Augmentin) cholecalciferol (vitamin D3) 25 25 mcg PO DAILY 09/22/21 09/22/21 History mcg (1,000 unit) tablet lactobacillus combination no.4 3 See Rx Instructions .ROUTE .COMPLEX 09/22/21 09/22/21 History billion cell capsule (Probiotic) Past Med/Surg History Medical History Asthma BPH (benign prostatic hyperplasia) Bronchitis Depression Diabetes HLD (hyperlipidemia) HTN (hypertension) PNA (pneumonia) PUD (peptic ulcer disease) Rectal bleeding Stomach problems UGIB (upper gastrointestinal bleed) Surgical History History of colonoscopy with polypectomy History of esophagogastroduodenoscopy (EGD) Family History Father , 71 Heart disease Mother Alzheimer disease Parkinsons disease Social History Smoking Status: Former smoker Hx Alcohol Use: No Hx Substance Use: No Preferred Language: Romanian Communication Ability: Effective Hearing Ability: Hard of Hearing Toppiece Cutter Required: No Beliefs That Will Affect Care: None marital status: Current Living Situation: Spouse and Other Current Living Situation Comment: Lives at home with and friend current occupational status: retired Feels Safe at Home: Yes Safety Concerns: Feels Safe At This Time Assistive Devices: Hearing Aid - Bilateral and Oxygen - Continuous Review of Systems Review of Systems: As per HPI, all 10 systems reviewed, all other ROS negative Physical Exam Physical Exam: GENERAL: Comfortable, pleasant, obese, no respiratory distress SKIN: Normal color, warm HEENT: Streator palpebral conjunctivae, no ptosis, dry buccal mucosa, nasal cannula in place NECK : Supple, short neck, no tenderness CHEST : Decreased breath sounds, no tenderness HEART : RRR, no obvious murmurs ABDOMEN: Some distention, minimal hypogastric tenderness EXTREMITIES : Minimal LE swelling, no LE tenderness, no other conspicuous deformities noted NEUROLOGIC : Coherent, no facial asymmetry, mild hearing impairment, no other gross focality Results & Data Results & Data ([facility]) Vital Signs (Past 12 Hours) Vital Signs Temp Pulse Resp BP Pulse Ox 09/22/21 23:10 83 15 93 09/22/21 23:00 84 23 92 09/22/21 22:50 83 15 92 09/22/21 22:40 88 18 91 09/22/21 22:30 86 24 91 09/22/21 22:20 85 24 130/74 92 09/22/21 22:10 88 17 91 09/22/21 22:00 88 21 89 L 09/22/21 21:50 92 H 14 88 L 09/22/21 21:40 89 21 90 09/22/21 21:30 88 13 105/65 89 L 09/22/21 21:20 90 16 92 09/22/21 21:10 89 17 93 09/22/21 21:00 90 18 93 09/22/21 20:50 93 H 19 92 09/22/21 20:40 93 H 24 93 09/22/21 20:30 94 H 21 93 09/22/21 20:20 95 H 19 94 09/22/21 20:13 106 H 22 92 09/22/21 18:17 37.2 C 98 H 18 130/75 94 Laboratory Results Laboratory Results WBC 10.50 K/uL (4.8-10.8) 09/22/21 20:10 RBC 4.45 M/uL (4.7-6.1) L 09/22/21 20:10 Hgb 13.6 g/dL (14.0-18.0) L 09/22/21 20:10 Hct 40.1 % (42-52) L 09/22/21 20:10 MCV 90.1 fL (80-100) 09/22/21 20:10 MCH 30.6 pg (25-34) 09/22/21 20:10 MCHC 33.9 g/dL (32-36) 09/22/21 20:10 RDW Std Deviation 43.5 fL (36.4-46.3) 09/22/21 20:10 RDW Coeff of Tana 13.0 % (11.5-14.5) 09/22/21 20:10 Plt Count 154 K/uL (130-400) 09/22/21 20:10 MPV 9.8 fL (7.4-10.4) 09/22/21 20:10 Immature Gran % (Auto) 0.3 % 09/22/21 20:10 Neut % (Auto) 90.8 % 09/22/21 20:10 Lymph % (Auto) 2.7 % 09/22/21 20:10 [place] % (Auto) 5.6 % 09/22/21 20:10 Eos % (Auto) 0.5 % 09/22/21 20:10 Baso % (Auto) 0.1 % 09/22/21 20:10 Neut # (Auto) 9.54 K/uL (1.4-6.5) H 09/22/21 20:10 Lymph # (Auto) 0.28 K/uL (1.2-3.4) L 09/22/21 20:10 [place] # (Auto) 0.59 K/uL (0.11-0.59) 09/22/21 20:10 Eos # (Auto) 0.05 K/uL (0-0.5) 09/22/21 20:10 Baso # (Auto) 0.01 K/uL (0-0.2) 09/22/21 20:10 Immature Gran # (Auto) 0.03 K/uL (0.00-0.02) H 09/22/21 20:10 PT 10.8 Seconds (9.0-12.0) 09/22/21 20:10 INR 1.1 (0.9-1.1) 09/22/21 20:10 APTT 23.9 Seconds (21.0-31.0) 09/22/21 20:10 PTT Ratio 0.9 09/22/21 20:10 Sodium 135 mmol/L (136-145) L 09/22/21 20:10 Potassium 3.6 mmol/L (3.5-5.1) 09/22/21 20:10 Chloride 104 mmol/L (98-107) 09/22/21 20:10 Carbon Dioxide 23 mmol/L (21-32) 09/22/21 20:10 Anion Gap 8.0 (3-11) 09/22/21 20:10 BUN 18 mg/dl (7-18) 09/22/21 20:10 Creatinine 1.02 mg/dl (0.6-1.4) 09/22/21 20:10 Est Cr Clr Drug Dosing Not Reportable 09/22/21 20:10 Est GFR ( Amer) 79.5 ml/min 09/22/21 20:10 Est GFR (Non-Af Amer) 68.6 ml/min 09/22/21 20:10 BUN/Creatinine Ratio 17.2 (10-20) 09/22/21 20:10 Glucose 169 mg/dl (70-99) H 09/22/21 20:10 Calcium 9.0 mg/dl (8.5-10.1) 09/22/21 20:10 Magnesium 1.5 mg/dl (1.8-2.4) L 09/22/21 20:10 Total Bilirubin 0.7 mg/dl (0.2-1) 09/22/21 20:10 AST 20 U/L (15-37) 09/22/21 20:10 ALT 38 (12-78) 09/22/21 20:10 Alkaline Phosphatase 82 U/L (45-117) 09/22/21 20:10 Troponin I < 0.015 ng/ml (0-0.045) 09/22/21 20:10 NT-Pro-B Natriuret Pep 190 pg/ml (0-1800) 09/22/21 20:10 Total Protein 6.2 gm/dl (6.4-8.2) L 09/22/21 20:10 Albumin 2.9 gm/dl (3.4-5.0) L 09/22/21 20:10 Globulin 3.3 gm/dl (2.5-4.0) 09/22/21 20:10 Albumin/Globulin Ratio 0.9 (0.9-2) 09/22/21 20:10 Lipase 103 U/L (73-393) 09/22/21 20:10 Urine Color Yellow 09/22/21 20:20 Urine Appearance Clear (Clear) 09/22/21 20:20 Urine pH 5.0 (4.5-7.5) 09/22/21 20:20 Ur Specific [place] 1.020 (1.000-1.030) 09/22/21 20:20 Urine Protein Negative (Negative) 09/22/21 20:20 Urine Glucose (UA) Negative (Negative) 09/22/21 20:20 Urine Ketones 1+ (Negative) H 09/22/21 20:20 Urine Blood Negative (Negative) 09/22/21 20:20 Urine Nitrite Negative (Negative) 09/22/21 20:20 Urine Bilirubin Negative (Negative) 09/22/21 20:20 Urine Urobilinogen Negative (Negative) 09/22/21 20:20 Ur Leukocyte Esterase Negative (Negative) 09/22/21 20:20 SARS-CoV-2, RNA, NAAT NEGATIVE (NEGATIVE) 09/22/21 20:20 Impressions Abdomen/Pelvis CT 09/22/21 19:06 CT OF THE ABDOMEN AND PELVIS WITHOUT CONTRAST CLINICAL HISTORY: Left lower quadrant abdominal pain. COMPARISON STUDY: CT of the abdomen and pelvis September 27, 2016. TECHNIQUE: Axial images of the abdomen and pelvis were obtained without IV contrast. Images were reviewed in the axial, sagittal, and coronal planes. Automated exposure control was utilized for the study. A dose lowering technique was utilized adhering to the principles of ALARA. FINDINGS: Mild bronchiectasis and subpleural reticulation within the lower lungs is noted. This may reflect interstitial lung disease. No pneumatosis, free air or portal venous gas is present. There is a small hiatal hernia. There are gallstones within the gallbladder. There is no evidence for acute cholecystitis. Unenhanced images of the liver, spleen, adrenal glands and pancreas are unremarkable. A 2.3 centered water attenuation lesion within the midpole the right kidney is suboptimally assessed on this unenhanced exam but shown to reflect a cyst on prior contrast enhanced exam. Symmetric bilateral perinephric stranding is of doubtful significance. Punctate 2 mm left renal calculus is noted. There are no ureteral calculi. There is no hydronephrosis. Probable subcentimeter left renal cyst is noted. There is extensive colonic diverticulosis. Note is made of an inflamed diverticulum of the mid sigmoid colon shown on axial image 279 of 466. There is minimal inflammation. There is no free air or abscess. Moderate amount stool within the rectum is present. Prostate is enlarged. Bladder is mildly distended. Bladder wall irregularity is likely chronic. The appendix is normal. There is no lymphadenopathy or ascites. No acute fracture or suspicious lesion is identified within the visualized skeletal structures. IMPRESSION: 1. Inflamed diverticulum of the mid sigmoid colon. Minimal inflammation. The findings are consistent with acute sigmoid diverticulitis. No free air or abscess. 2. Extensive colonic diverticulosis. 3. Small hiatal hernia. 4. Cholelithiasis. No evidence for acute cholecystitis. ACT 112: Negative or not required by law. Electronically signed by: Ancelmo Carlson M.D. 09/22/2021 7:[address] chest initial read: Examination is limited byrespiratorymotion and lowlung volumes. No discrete pulmonaryembolismis visualized. Mild opacities in the left greater than right lung bases, compatible with atelectasis. Asuperimposed infectious/inflammatoryprocess is possible. Borderline cardiomegaly. Small hiatal hernia. EKG as per my interpretation rate 95, NSR, LAD, LAFB, 1 AVB, T wave flattening inferior leads, low voltage
[2021-09-22 23:48] LABS: Base Excess ABG -0.4 mEq/L (-9-1.8); HCO3 ABG 23 mmol/L (19-24); Oxygen Saturation ABG 92.4 % (90-95); PCO2 ABG 36 mmHg (35-46); PO2 ABG 63 mmHg (80-95); pH ABG 7.44 (7.35-7.45)
[2021-09-22] MEDS ORDERED: ALBUT/IPRATROP 3MG/0.5MG NEB 3 ML VIAL ONE (23:49)
[2021-09-22] MEDS ORDERED: POTASSIUM CHLORIDE 40 MEQ in SODIUM CHLORIDE 0.9% 1000ML 1,000 ML IV ONE (23:54)
[2021-09-23 00:06] LABS: Allen Test Pos (Pos)
[2021-09-23] MEDS ORDERED: OPTIRAY 320 125ml IV ONE (00:50)
[2021-09-23] MEDS ORDERED: GLUCOSE 10 TABS/TUBE PO PRN (01:09)
[2021-09-23] MEDS ORDERED: DEXTROSE 50% 50 ML SYRINGE IV PRN (01:09)
[2021-09-23] MEDS ORDERED: traMADol HCL 50 MG TABLET PO PRN (01:09)
[2021-09-23] MEDS ORDERED: ACETAMINOPHEN 325 MG TAB PO PRN (01:09)
[2021-09-23] MEDS ORDERED: GLUCAGON FOR INJ 1 MG VIAL SQ PRN (01:09)
[2021-09-23] MEDS ORDERED: CARBOHYDRATES FOR HYPOGLYCEMIA PO PRN (01:09)
[2021-09-23] MEDS ORDERED: GLUCOSE 40% GEL 15 GM TUBE PO PRN (01:09)
[2021-09-23] MEDS ORDERED: PROMETHAZINE HCL 12.5 MG in SODIUM CHLORIDE 0.9% 50 ML IV PRN (01:09)
[2021-09-23] MEDS ORDERED: PATIENT'S HEIGHT AND/OR WEIGHT NEEDED SCH (01:30)
[2021-09-23] MEDS: INSULIN ASPART 100 UNITS/ML VIAL SC SCH ×5 (01:48→20:44)
[2021-09-23] MEDS: MAGNESIUM SULFATE / D5W 1 GM/100 ML BAG IV SCH ×2 (05:51→07:43)
[2021-09-23] MEDS: INSULIN GLARGINE SOLOSTAR 100 UNITS/ML 3 ML PEN SC SCH (05:57)
[2021-09-23 06:28] LABS: Basophils # (auto) 0.01 K/uL (0-0.2); Basophils % (auto) 0.1 %; Eosinophils # (auto) 0.22 K/uL (0-0.5); Eosinophils % (auto) 1.9 %; Hematocrit (blood only) 40.4 % (42-52); Hemoglobin 13.6 g/dL (14.0-18.0); Immature Granulocytes # (auto) 0.02 K/uL (0.00-0.02); Immature Granulocytes % (auto) 0.2 %; Lymphocytes # (auto) 0.38 K/uL (1.2-3.4); Lymphocytes % (auto) 3.3 %; Mean Corpuscular Hemoglobin 30.8 pg (25-34); Mean Corpuscular Hgb Conc 33.7 g/dL (32-36); Mean Corpuscular Volume 91.4 fL (80-100); Mean Platelet Volume 9.7 fL (7.4-10.4); Monocytes # (auto) 1.08 K/uL (0.11-0.59); Monocytes % (auto) 9.3 %; Neutrophils # (auto) 9.91 K/uL (1.4-6.5); Neutrophils % (auto) 85.2 %; Platelet Count 164 K/uL (130-400); RDW Coefficient of Variation 13.3 % (11.5-14.5); RDW Standard Deviation 44.4 fL (36.4-46.3); Red Blood Count 4.42 M/uL (4.7-6.1); White Blood Count 11.62 K/uL (4.8-10.8)
[2021-09-23 06:57] LABS: BUN Creatinine Ratio 14.6 (10-20); Calcium 8.9 mg/dl (8.5-10.1); Creatinine Clr Calc Pharmacy 59.1 ml/min; Est GFR (African American) 70.3 ml/min; Est GFR (Non-African American) 60.6 ml/min; Potassium 4.7 mmol/L (3.5-5.1)
[2021-09-23 07:30] LABS: Estimated Average Glucose 169 mg/dl; Hemoglobin A1C 7.5 % (4.5-5.6)
--- NOTE | 2021-09-23 07:56 | CT Scan Report ---
CT ANGIOGRAPHY OF THE CHEST, PULMONARY EMBOLUS PROTOCOL CLINICAL HISTORY: low o2 COMPARISON STUDY: Chest radiograph September 22, 2021. TECHNIQUE: Following IV administration of 120 mL of Optiray, helical axial images of the chest were o btained utilizing the pulmonary embolus protocol. Maximal intensity projections and sagittal and cor onal reformats were viewed on an independent 3D workstation. IV contrast was administered without co mplication. Automated exposure control was utilized for the study. A dose lowering technique was ut ilized adhering to the principles of ALARA. CT DOSE: 643.64 mGy.cm FINDINGS: No pulmonary emboli are identified although the segmental and subsegmental pulmonary arter ies are suboptimally assessed due to respiratory motion. There is no thoracic aortic dissection. No e nlarged axillary or hilar lymph nodes are present. Mildly enlarged subcarinal lymph node measures 1.3 cm in short axis diameter. Moderate cardiomegaly and coronary artery calcification is present. There is no pericardial effusion. Lungs are suboptimally assessed due to respiratory motion. There is susp ected underlying emphysema. Subpleural bilateral lower lobe opacities are noted. There is no cavitati on. Old left rib fractures are incidentally noted. No acute fractures are identified within visualize d skeletal structures. 1.8 cm hypodense right lobe thyroid nodule is present. Visualized portions of the upper abdomen are unremarkable. There is a small hiatal hernia. IMPRESSION: 1. No pulmonary emboli identified although segmental and subsegmental pulmonary arteries suboptimally assessed due to respiratory motion. 2. Bilateral lower lobe airspace opacities which favor atelectasis. However, an infectious process co uld appear similar. 3. Moderate cardiomegaly and coronary artery calcification. ACT 112: Negative or not required by law. Electronically signed by: Ancelmo Carlson M.D. 09/23/2021 7:55 AM
--- NOTE | 2021-09-23 08:10 | XRay Report ---
XR chest 1V portable CLINICAL HISTORY: Shortness of breath. COMPARISON STUDY: No previous studies for comparison. FINDINGS: Lung volumes are at the lower limits of normal. There is no pneumothorax or pleural effusio n. There is mild lower lung interstitial thickening. Mild linear left basilar opacity is present. Not e is made of mild cardiomegaly. There is no evidence for pulmonary edema. IMPRESSION: 1. Cardiomegaly without evidence for pulmonary edema. 2. Mild lower lung opacities which favors atelectasis. An infectious process could appear similar but is considered less likely. 3. Mild nonspecific lower lung interstitial thickening. ACT 112: Negative or not required by law. Electronically signed by: Ancelmo Carlson M.D. 09/23/2021 8:08 AM
[2021-09-23] MEDS ORDERED: INSULIN GLARGINE SOLOSTAR 100 UNITS/ML 3 ML PEN SC SCH (09:00)
[2021-09-23] MEDS ORDERED: ADVANCED PROBIOTIC 1250 MG CAPSULE PO SCH (09:00)
[2021-09-23] MEDS: ASPIRIN 81 MG ECTAB PO SCH (10:23)
[2021-09-23] MEDS: CITALOPRAM 20 MG TAB PO SCH (10:24)
[2021-09-23] MEDS: ENALAPRIL MALEATE 10 MG TAB PO SCH (10:24)
[2021-09-23] MEDS: ENOXAPARIN INJ 40 MG/0.4 ML SYR SQ SCH (10:25)
[2021-09-23] MEDS: AMOXICILLIN/CLAVULANATE 875 MG TAB PO SCH ×2 (10:25→17:52)
--- NOTE | 2021-09-23 15:49 | Electrocardiogram Report ---
Test Reason : Blood Pressure : / mmHG Vent. Rate : 093 BPM Atrial Rate : 093 BPM P-R Int : 224 ms QRS Dur : 086 ms QT Int : 494 ms P-R-T Axes : 044 000 034 degrees QTc Int : 614 ms Poor data quality, interpretation may be adversely affected Sinus rhythm with 1st degree A-V block Low voltage QRS Prolonged QT Abnormal ECG When compared with ECG of 30-DEC-2018 20:28, Vent. rate has increased BY 33 BPM QT has lengthened Confirmed by Tyson Aviles ([id number]) on 09/23/2021 3:49:16 PM Referred By: REFERRED SELF Confirmed By:Tyson Aviles
--- NOTE | 2021-09-23 16:31 | Hospitalist Progress Note ---
Date of Service September 23, 2021 Assessment & Plan (1) Acute hypoxemic respiratory failure: Plan: Patient asymptomatic. Atelectasis on initial CT chest read. Possible interstitial lung disease (Mild bronchiectasis and subpleural reticu lation within the lower lungs noted incidental finding on CT abdomen pelvis read), past tobacco abuse Recurrent diverticulitis, patient not toxic HTN, stable hx TIA as per records DM2 on oral meds, reasonable control as of recent hemoglobin A1c of 7.22 October 2020 hyperlipidemia on statin Rx past tobacco abuse. Medical telemetry Neb trial Incentive spirometry Pulmonary consult if without improvement Clear liquids for now, Augmentin course for diverticulitis Outpatient GI consult for recurrent diverticulitis Basal insulin, ISS BG goal 1 10-1 40, carb count coverage, update hemoglobin A1c DVT prophylaxis per Lovenox subcu Full code Patient requesting update providers. Ms. Bella Nick, contact numbers [phone]. Text document was generated using [employer] voice recognition software. It may contain grammatical or spelling errors. Kindly contact undersigned for clarification of any documentation item in question. (2) Hypoxia: Plan: Initially presented with hypoxia to the ER which has now resolved. He had a CT scan of the chest with contrast ruling out any PE and there is no pneumonia. Bilateral atelectasis is present with a question of ILD changes. resolved. (3) Diverticulitis: Plan: Acute signmoid diverticulitis on imaging yesterday. He was started on Augmentin and give some IVF ovenright, reports feeling better since admission. Cont current treatment course less the IVF. (4) Heartburn: Plan: long standing, started constant PPI therapy. Cont trial for several weeks. (5) DMII (diabetes mellitus, type 2): Plan: hold metformin while inpatient and utilize basal/bolus insulin. Currently at goal (6) HTN (hypertension): Plan: Chronic, at goal, cont current therapy (7) Depression: Plan: chronic, stable. Cont duloxetine per home regimen. (8) DVT prophylaxis: Plan: Lovenox Full Dispo-to home in am. Janny Ramachandran DO [facility] Hospitalist Admission and Anticipated Discharge Date Admission Date: September 22, 2021 Subjective 81 yo M presented with rigors overnight, found to have acute sigmoid diverticulitis, also reporting worsening heartburn symptoms for the past few weeks. After further discussion, he feels he is drinking too much coffee. We discussed PPI vs H2 miriam therapy with he and his who is at his bedside. Denies heartburn reports no abdominal pain or stool changes feels better since admission no further rigors. doesn't want to eat beef boulion because it causes him heartburn--his diet was advanced. Review of Systems Review of Systems: All systems were reviewed and negative except as indicated in HPI above. Physical Exam Physical Exam: CONSTITUTIONAL: WNWD, vitals as above, generally well- appearing, NAD EYES: normal conjunctivae, no scleral icterus ENT: external ear and nose normal, MMM NECK: trachea midline RESPIRATORY: clear to auscultation bilaterally, no crackles, rales or wheezes, normal respiratory effort CARDIOVASCULAR: regular rate and rhythm, S1 and 2 heard without murmurs, ga llops or rubs, no JVD, no peripheral edema CHEST: inspection of chest was normal GASTROINTESTINAL: soft, nontender, ND, no guarding MUSCULOSKELETAL: strength 5/5 throughout, head is normocephalic and atraumatic SKIN: warm and dry NEUROLOGIC: CN 2-12 grossly intact, no sensory deficit, normal cognition, normal speech, no tremor. No gross focal deficit. PSYCHIATRIC: alert cooperative and oriented to person, place and time. Results & Data Results & Data ([facility]) Vital Signs (Past 12 Hours) Vital Signs Temp Pulse Resp BP Pulse Ox 09/23/21 14:50 37.3 C 66 20 132/54 L 91 09/23/21 11:06 36.8 C 69 20 115/63 93 09/23/21 10:27 95 09/23/21 07:03 37.1 C 65 18 93/49 L 98 Laboratory Results Short CBC 09/22/21 09/23/21 Range/Units 20:10 06:18 WBC 10.50 11.62 H (4.8-10.8) K/uL Hgb 13.6 L 13.6 L (14.0-18.0) g/dL Hct 40.1 L 40.4 L (42-52) % Plt Count 154 164 (130-400) K/uL BMP 09/22/21 09/23/21 20:10 06:18 Sodium 135 L 139 Potassium 3.6 4.7 D Chloride 104 105 Carbon Dioxide 23 28 BUN 18 17 Creatinine 1.02 1.13 Glucose 169 H 151 H Calcium 9.0 8.9 Cardiac Enzymes 09/22/21 Range/Units 20:10 Troponin I < 0.015 (0-0.045) ng/ml Liver Function 09/22/21 Range/Units 20:10 Total Bilirubin 0.7 (0.2-1) mg/dl AST 20 (15-37) U/L ALT 38 (12-78) Alkaline Phosphatase 82 (45-117) U/L Albumin 2.9 L (3.4-5.0) gm/dl Urine 09/22/21 Range/Units 20:20 Urine Color Yellow Urine Appearance Clear (Clear) Urine pH 5.0 (4.5-7.5) Ur Specific [place] 1.020 (1.000-1.030) Urine Protein Negative (Negative) Urine Glucose (UA) Negative (Negative) Diagnostic Findings Chest X-Ray 09/22/21 21:30 XR chest 1V portable CLINICAL HISTORY: Shortness of breath. COMPARISON STUDY: No previous studies for comparison. FINDINGS: Lung volumes are at the lower limits of normal. There is no pneumothorax or pleural effusion. There is mild lower lung interstitial thickening. Mild linear left basilar opacity is present. Note is made of mild cardiomegaly. There is no evidence for pulmonary edema. IMPRESSION: 1. Cardiomegaly without evidence for pulmonary edema. 2. Mild lower lung opacities which favors atelectasis. An infectious process could appear similar but is considered less likely. 3. Mild nonspecific lower lung interstitial thickening. ACT 112: Negative or not required by law. Electronically signed by: Ancelmo Carlson M.D. 09/23/2021 8:08 AM Chest CTA 09/22/21 23:47 CT ANGIOGRAPHY OF THE CHEST, PULMONARY EMBOLUS PROTOCOL CLINICAL HISTORY: low o2 COMPARISON STUDY: Chest radiograph September 22, 2021. TECHNIQUE: Following IV administration of 120 mL of Optiray, helical axial images of the chest were obtained utilizing the pulmonary embolus protocol. Maximal intensity projections and sagittal and coronal reformats were viewed on an independent 3D workstation. IV contrast was administered without complication. Automated exposure control was utilized for the study. A dose lowering technique was utilized adhering to the principles of ALARA. CT DOSE: 643.64 mGy.cm FINDINGS: No pulmonary emboli are identified although the segmental and subsegmental pulmonary arteries are suboptimally assessed due to respiratory motion. There is no thoracic aortic dissection. No enlarged axillary or hilar lymph nodes are present. Mildly enlarged subcarinal lymph node measures 1.3 cm in short axis diameter. Moderate cardiomegaly and coronary artery calcification is present. There is no pericardial effusion. Lungs are suboptimally assessed due to respiratory motion. There is suspected underlying emphysema. Subpleural bilateral lower lobe opacities are noted. There is no cavitation. Old left rib fractures are incidentally noted. No acute fractures are identified within visualized skeletal structures. 1.8 cm hypodense right lobe thyroid nodule is present. Visualized portions of the upper abdomen are unremarkable. There is a small hiatal hernia. IMPRESSION: 1. No pulmonary emboli identified although segmental and subsegmental pulmonary arteries suboptimally assessed due to respiratory motion. 2. Bilateral lower lobe airspace opacities which favor atelectasis. However, an infectious process could appear similar. 3. Moderate cardiomegaly and coronary artery calcification. ACT 112: Negative or not required by law. Electronically signed by: Ancelmo Carlson M.D. 09/23/2021 7:55 AM Medications Administered Current Inpatient Medications Acetaminophen (Acetaminophen 325 Mg Tab) 650 mg PO Q4H PRN PRN Reason: Pain or Fever Stop: 10/23/21 01:08 Amoxicillin/Clavulanate Potassium (Amoxicillin/Clavulanate 875 Mg Tab) 1 tab PO BIDM MATT Stop: 10/03/21 07:59 Last Admin: 09/23/21 10:25 Dose: 1 tab Documented by: Aspirin (Aspirin 81 Mg Ectab) 81 mg PO DAILY MATT Stop: 10/23/21 08:59 Last Admin: 09/23/21 10:23 Dose: 81 mg Documented by: Atorvastatin Calcium (Atorvastatin 40 Mg Tab) 40 mg PO HS MATT Stop: 10/23/21 20:59 Citalopram Hydrobromide (Citalopram 20 Mg Tab) 20 mg PO DAILY MATT Stop: 10/23/21 08:59 Last Admin: 09/23/21 10:24 Dose: 20 mg Documented by: Dextrose (Dextrose 50% 50 Ml Syringe) 25 - 50 ml IV UD PRN; Protocol PRN Reason: Hypoglycemia Protocol Stop: 10/23/21 01:08 Enalapril Maleate (Enalapril Maleate 10 Mg Tab) 10 mg PO DAILY MATT Stop: 10/23/21 08:59 Last Admin: 09/23/21 10:24 Dose: Not Given Documented by: Enoxaparin Sodium (Enoxaparin Inj 40 Mg/0.4 Ml Syr) 40 mg SQ QAM [facility] Stop: 10/23/21 08:59 Last Admin: 09/23/21 10:25 Dose: 40 mg Documented by: Glucagon (Glucagon For Inj 1 Mg Vial) 1 mg SQ UD PRN; Protocol PRN Reason: Hypoglycemia Protocol Stop: 10/23/21 01:08 Glucose (Glucose 10 Tabs/Tube) 4 - 8 tabs PO UD PRN; Protocol PRN Reason: Hypoglycemia Protocol Stop: 10/23/21 01:08 Glucose (Glucose 40% Gel 15 Gm Tube) 15 - 30 gm PO UD PRN; Protocol PRN Reason: Hypoglycemia Protocol Stop: 10/23/21 01:08 Potassium Chloride 40 meq/ (Sodium Chloride) 1,020 mls @ 60 mls/hr IV .Q17H ONE Stop: 09/23/21 16:53 Last Admin: 09/23/21 01:11 Dose: 60 mls/hr Documented by: Promethazine HCl 12.5 mg/ (Sodium Chloride) 50.5 mls @ 202 mls/hr IV Q6H PRN PRN Reason: Nausea And Vomiting Stop: 10/23/21 01:08 Insulin Aspart (Insulin Aspart 100 Units/Ml Vial) 0 units SC ACHS [facility] Stop: 10/23/21 01:08 Last Admin: 09/23/21 13:17 Dose: 2 units Documented by: Insulin Glargine (Insulin Glargine Solostar 100 Units/Ml 3 Ml Pen) 5 units SC DAILY [facility] Stop: 10/23/21 05:09 Last Admin: 09/23/21 05:57 Dose: 5 units Documented by: Lactobacillus Acidoph/Casei/Rhamnos (Advanced Probiotic 1250 Mg Capsule) 1 cap PO MoWeFr@0900 [facility] Stop: 10/23/21 08:59 Last Admin: 09/23/21 10:23 Dose: 1 cap Documented by: Miscellaneous (Carbohydrates For Hypoglycemia ) 15 - 30 gm PO UD PRN PRN Reason: Hypoglycemia Protocol Stop: 10/23/21 01:08 Tamsulosin HCl (Tamsulosin Hcl 0.4 Mg Cap) 0.4 mg PO HS [facility] Stop: 10/23/21 20:59 Tramadol HCl (Tramadol Hcl 50 Mg Tablet) 25 - 50 mg PO Q4H PRN PRN Reason: Pain Stop: 10/23/21 01:08
[2021-09-23] MEDS ORDERED: ATORVASTATIN 40 MG TAB PO SCH (21:00)
[2021-09-23] MEDS ORDERED: TAMSULOSIN HCL 0.4 MG CAP PO SCH (21:00)
[2021-09-24] MEDS: ENOXAPARIN INJ 40 MG/0.4 ML SYR SQ SCH (07:42)
[2021-09-24] MEDS: CITALOPRAM 20 MG TAB PO SCH (07:44)
[2021-09-24] MEDS: ASPIRIN 81 MG ECTAB PO SCH (07:44)
[2021-09-24] MEDS: AMOXICILLIN/CLAVULANATE 875 MG TAB PO SCH (07:44)
[2021-09-24] MEDS: ENALAPRIL MALEATE 10 MG TAB PO SCH (07:44)
[2021-09-24 07:49] LABS: Hematocrit (blood only) 38.6 % (42-52); Mean Corpuscular Hemoglobin 30.7 pg (25-34); Mean Corpuscular Hgb Conc 33.7 g/dL (32-36); Mean Corpuscular Volume 91.3 fL (80-100); Mean Platelet Volume 9.9 fL (7.4-10.4); Platelet Count 141 K/uL (130-400); RDW Coefficient of Variation 13.2 % (11.5-14.5); Red Blood Count 4.23 M/uL (4.7-6.1); White Blood Count 6.72 K/uL (4.8-10.8)
[2021-09-24 08:22] LABS: BUN Creatinine Ratio 17.8 (10-20); Calcium 8.2 mg/dl (8.5-10.1); Creatinine Clr Calc Pharmacy 69.4 ml/min; Est GFR (African American) 85.6 ml/min; Est GFR (Non-African American) 73.8 ml/min; Phosphorus 2.7 mg/dl (2.5-4.9); Potassium 4.2 mmol/L (3.5-5.1)
[2021-09-24] MEDS: INSULIN ASPART 100 UNITS/ML VIAL SC SCH ×2 (08:26→12:26)
[2021-09-24] MEDS: INSULIN GLARGINE SOLOSTAR 100 UNITS/ML 3 ML PEN SC SCH (08:27)
[2021-09-24] MEDS ORDERED: PANTOprazole 40 MG TAB PO SCH (09:00)
[2021-09-24 09:27] LABS: Magnesium 2.2 mg/dl (1.8-2.4)
--- NOTE | 2021-09-24 16:00 | Discharge Summary ---
Date of Service September 24, 2021 Admission HPI Per Admitting Provider History obtained from patient, family, and records. Medical history significant for HTN, TIA, DM2 on oral meds, hyperlipidemia, diverticulosis, mood disorder, past tobacco abuse. Last confinement December 2018 for TIA. Patient noted heartburn symptoms relieved by 's antacid Rx. Dry cough symptoms resolved 2 days ago. No chest pain, no S OB. This morning, patient noted achy lower abdominal pain with shaking episodes. No chest pain, no S OB no cough symptoms. Patient denies fluid retention at home. Patient unaware of snoring. At the ER. Augmentin given for mild diverticulitis on CT. O2 sats 88 on room air at 1 point during stay at the ER. MEDICAL HISTORY: As above. 2018 colonoscopy showed adenomatous polyp, diverticulosis SURGERIES:Cataract surgeries FAMILY HISTORY:Parkinson's disease, dementia, heart disease PERSONAL AND SOCIAL HISTORY: Past tobacco abuse. 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 Admission Exam Per Admitting Provider GENERAL: Comfortable, pleasant, obese, no respiratory distress SKIN: Normal color, warm HEENT: [place] palpebral conjunctivae, no ptosis, dry buccal mucosa, nasal cannula in place NECK : Supple, short neck, no tenderness CHEST : Decreased breath sounds, no tenderness HEART : RRR, no obvious murmurs ABDOMEN: Some distention, minimal hypogastric tenderness EXTREMITIES : Minimal LE swelling, no LE tenderness, no other conspicuous deformities noted NEUROLOGIC : Coherent, no facial asymmetry, mild hearing impairment, no other gross focality Principal Diagnosis Acute diverticulitis with rigors and hypoxia Acid reflux Discharge Exam CONSTITUTIONAL: WNWD, vitals as above, generally well-appearing, NAD EYES: normal conjunctivae, no scleral icterus ENT: external ear and nose normal, MMM NECK: trachea midline RESPIRATORY: clear to auscultation bilaterally, no crackles, rales or wheezes, normal respiratory effort CARDIOVASCULAR: regular rate and rhythm, S1 and 2 heard without murmurs, gallops or rubs, no JVD, no peripheral edema CHEST: inspection of chest was normal GASTROINTESTINAL: soft, nontender, ND, no guarding MUSCULOSKELETAL: strength 5/5 throughout, head is normocephalic and atraumatic SKIN: warm and dry NEUROLOGIC: CN 2-12 grossly intact, no sensory deficit, normal cognition, normal speech, no tremor. No gross focal deficit. PSYCHIATRIC: alert cooperative and oriented to person, place and time. Discharge Data Allergies Allergy/AdvReac Type Severity Reaction Status Date / Time bee venom protein (honey bee) Allergy Unknown Unverified 12/30/18 20:55 Consultations 09/22/21 22:46 ED Decision to Admit Stat Ordered Studies Laboratory Results WBC 6.72 K/uL (4.8-10.8) 09/24/21 07:19 RBC 4.23 M/uL (4.7-6.1) L 09/24/21 07:19 Hgb 13.0 g/dL (14.0-18.0) L 09/24/21 07:19 Hct 38.6 % (42-52) L 09/24/21 07:19 MCV 91.3 fL (80-100) 09/24/21 07:19 MCH 30.7 pg (25-34) 09/24/21 07:19 MCHC 33.7 g/dL (32-36) 09/24/21 07:19 RDW Std Deviation 44.0 fL (36.4-46.3) 09/24/21 07:19 RDW Coeff of Tana 13.2 % (11.5-14.5) 09/24/21 07:19 Plt Count 141 K/uL (130-400) 09/24/21 07:19 MPV 9.9 fL (7.4-10.4) 09/24/21 07:19 Immature Gran % (Auto) 0.2 % 09/23/21 06:18 Neut % (Auto) 85.2 % 09/23/21 06:18 Lymph % (Auto) 3.3 % 09/23/21 06:18 [place] % (Auto) 9.3 % 09/23/21 06:18 Eos % (Auto) 1.9 % 09/23/21 06:18 Baso % (Auto) 0.1 % 09/23/21 06:18 Neut # (Auto) 9.91 K/uL (1.4-6.5) H 09/23/21 06:18 Lymph # (Auto) 0.38 K/uL (1.2-3.4) L 09/23/21 06:18 [place] # (Auto) 1.08 K/uL (0.11-0.59) H 09/23/21 06:18 Eos # (Auto) 0.22 K/uL (0-0.5) 09/23/21 06:18 Baso # (Auto) 0.01 K/uL (0-0.2) 09/23/21 06:18 Immature Gran # (Auto) 0.02 K/uL (0.00-0.02) 09/23/21 06:18 PT 10.8 Seconds (9.0-12.0) 09/22/21 20:10 INR 1.1 (0.9-1.1) 09/22/21 20:10 APTT 23.9 Seconds (21.0-31.0) 09/22/21 20:10 PTT Ratio 0.9 09/22/21 20:10 ABG pH 7.44 (7.35-7.45) 09/22/21 23:26 ABG pCO2 36 mmHg (35-46) 09/22/21 23:26 ABG pO2 63 mmHg (80-95) L 09/22/21 23:26 ABG HCO3 23 mmol/L (19-24) 09/22/21 23:26 ABG O2 Saturation 92.4 % (90-95) 09/22/21 23:26 ABG Base Excess -0.4 mEq/L (-9-1.8) 09/22/21 23:26 Benedict Test Pos (Pos) 09/22/21 23:26 Barometric Pressure 734.6 mm/Hg 09/22/21 23:26 Oxygen Given 2L 09/22/21 23:26 Sodium 139 mmol/L (136-145) 09/24/21 07:19 Potassium 4.2 mmol/L (3.5-5.1) 09/24/21 07:19 Chloride 106 mmol/L (98-107) 09/24/21 07:19 Carbon Dioxide 27 mmol/L (21-32) 09/24/21 07:19 Anion Gap 6.0 (3-11) 09/24/21 07:19 BUN 17 mg/dl (7-18) 09/24/21 07:19 Creatinine 0.96 mg/dl (0.6-1.4) 09/24/21 07:19 Est Cr Clr Drug Dosing 69.4 ml/min 09/24/21 07:19 Est GFR ( Amer) 85.6 ml/min 09/24/21 07:19 Est GFR (Non-Af Amer) 73.8 ml/min 09/24/21 07:19 BUN/Creatinine Ratio 17.8 (10-20) 09/24/21 07:19 Glucose 133 mg/dl (70-99) H 09/24/21 07:19 POC Glucose 131 mg/dl (70-99) H 09/24/21 11:39 Estimat Average Glucose 169 mg/dl 09/22/21 23:27 Hemoglobin A1c 7.5 % (4.5-5.6) H 09/22/21 23:27 Calcium 8.2 mg/dl (8.5-10.1) L 09/24/21 07:19 Phosphorus 2.7 mg/dl (2.5-4.9) 09/24/21 07:19 Magnesium 2.2 mg/dl (1.8-2.4) 09/24/21 07:19 Total Bilirubin 0.7 mg/dl (0.2-1) 09/22/21 20:10 AST 20 U/L (15-37) 09/22/21 20:10 ALT 38 (12-78) 09/22/21 20:10 Alkaline Phosphatase 82 U/L (45-117) 09/22/21 20:10 Troponin I < 0.015 ng/ml (0-0.045) 09/22/21 20:10 NT-Pro-B Natriuret Pep 190 pg/ml (0-1800) 09/22/21 20:10 Total Protein 6.2 gm/dl (6.4-8.2) L 09/22/21 20:10 Albumin 2.9 gm/dl (3.4-5.0) L 09/22/21 20:10 Globulin 3.3 gm/dl (2.5-4.0) 09/22/21 20:10 Albumin/Globulin Ratio 0.9 (0.9-2) 09/22/21 20:10 Lipase 103 U/L (73-393) 09/22/21 20:10 Urine Color Yellow 09/22/21 20:20 Urine Appearance Clear (Clear) 09/22/21 20:20 Urine pH 5.0 (4.5-7.5) 09/22/21 20:20 Ur Specific [place] 1.020 (1.000-1.030) 09/22/21 20:20 Urine Protein Negative (Negative) 09/22/21 20:20 Urine Glucose (UA) Negative (Negative) 09/22/21 20:20 Urine Ketones 1+ (Negative) H 09/22/21 20:20 Urine Blood Negative (Negative) 09/22/21 20:20 Urine Nitrite Negative (Negative) 09/22/21 20:20 Urine Bilirubin Negative (Negative) 09/22/21 20:20 Urine Urobilinogen Negative (Negative) 09/22/21 20:20 Ur Leukocyte Esterase Negative (Negative) 09/22/21 20:20 SARS-CoV-2, RNA, NAAT NEGATIVE (NEGATIVE) 09/22/21 20:20 Impressions Abdomen/Pelvis CT 09/22/21 19:06 CT OF THE ABDOMEN AND PELVIS WITHOUT CONTRAST CLINICAL HISTORY: Left lower quadrant abdominal pain. COMPARISON STUDY: CT of the abdomen and pelvis September 27, 2016. TECHNIQUE: Axial images of the abdomen and pelvis were obtained without IV contrast. Images were reviewed in the axial, sagittal, and coronal planes. Automated exposure control was utilized for the study. A dose lowering tech nique was utilized adhering to the principles of ALARA. FINDINGS: Mild bronchiectasis and subpleural reticulation within the lower lungs is noted. This may reflect interstitial lung disease. No pneumatosis, free air or portal venous gas is present. There is a small hiatal hernia. There are gallstones within the gallbladder. There is no evidence for acute cholecystitis. Unenhanced images of the liver, spleen, adrenal glands and pancreas are unremarkable. A 2.3 centered water attenuation lesion within the midpole the right kidney is suboptimally assessed on this unenhanced exam but shown to reflect a cyst on prior contrast enhanced exam. Symmetric bilateral perinephric stranding is of doubtful significance. Punctate 2 mm left renal calculus is noted. There are no ureteral calculi. There is no hydronephrosis. Probable subcentimeter left renal cyst is noted. There is extensive colonic diverticulosis. Note is made of an inflamed diverticulum of the mid sigmoid colon shown on axial image 279 of 466. There is minimal inflammation. There is no free air or abscess. Moderate amount stool within the rectum is present. Prostate is enlarged. Bladder is mildly distended. Bladder wall irregularity is likely chronic. The appendix is normal. There is no lymphadenopathy or ascites. No acute fracture or suspicious lesion is identified within the visualized skeletal structures. IMPRESSION: 1. Inflamed diverticulum of the mid sigmoid colon. Minimal inflammation. The findings are consistent with acute sigmoid diverticulitis. No free air or abscess. 2. Extensive colonic diverticulosis. 3. Small hiatal hernia. 4. Cholelithiasis. No evidence for acute cholecystitis. ACT 112: Negative or not required by law. Electronically signed by: Ancelmo Carlson M.D. 09/22/2021 7:41 PM Chest X-Ray 09/22/21 21:30 XR chest 1V portable CLINICAL HISTORY: Shortness of breath. COMPARISON STUDY: No previous studies for comparison. FINDINGS: Lung volumes are at the lower limits of normal. There is no pneumothorax or pleural effusion. There is mild lower lung interstitial thickening. Mild linear left basilar opacity is present. Note is made of mild cardiomegaly. There is no evidence for pulmonary edema. IMPRESSION: 1. Cardiomegaly without evidence for pulmonary edema. 2. Mild lower lung opacities which favors atelectasis. An infectious process could appear similar but is considered less likely. 3. Mild nonspecific lower lung interstitial thickening. ACT 112: Negative or not required by law. Electronically signed by: Ancelmo Carlson M.D. 09/23/2021 8:08 AM Chest CTA 09/22/21 23:47 CT ANGIOGRAPHY OF THE CHEST, PULMONARY EMBOLUS PROTOCOL CLINICAL HISTORY: low o2 COMPARISON STUDY: Chest radiograph September 22, 2021. TECHNIQUE: Following IV administration of 120 mL of Optiray, helical axial images of the chest were obtained utilizing the pulmonary embolus protocol. Maximal intensity projections and sagittal and coronal reformats were viewed on an independent 3D workstation. IV contrast was administered without complication. Automated exposure control was utilized for the study. A dose lowering technique was utilized adhering to the principles of ALARA. CT DOSE: 643.64 mGy.cm FINDINGS: No pulmonary emboli are identified although the segmental and subsegmental pulmonary arteries are suboptimally assessed due to respiratory motion. There is no thoracic aortic dissection. No enlarged axillary or hilar lymph nodes are present. Mildly enlarged subcarinal lymph node measures 1.3 cm in short axis diameter. Moderate cardiomegaly and coronary artery calcification is present. There is no pericardial effusion. Lungs are suboptimally assessed due to respiratory motion. There is suspected underlying emphysema. Subpleural bilateral lower lobe opacities are noted. There is no cavitation. Old left rib fractures are incidentally noted. No acute fractures are identified within visualized skeletal structures. 1.8 cm hypodense right lobe thyroid nodule is present. Visualized portions of the upper abdomen are unremarkable. There is a small hiatal hernia. IMPRESSION: 1. No pulmonary emboli identified although segmental and subsegmental pulmonary arteries suboptimally assessed due to respiratory motion. 2. Bilateral lower lobe airspace opacities which favor atelectasis. However, an infectious process could appear similar. 3. Moderate cardiomegaly and coronary artery calcification. ACT 112: Negative or not required by law. Electronically signed by: Ancelmo Carlson M.D. 09/23/2021 7:55 AM Hospital Course (1) Hypoxia: Initially presented with hypoxia to the ER which has now resolved. Acute hypoxic respiratory failure ruled out. He had a CT scan of the chest with contrast ruling out any PE and there is no pneumonia. Bilateral atelectasis is present with a question of ILD changes. Outpatient work-up/follow-up recommended with outpatient PFTs. I discussed this with patient and his prior to discharge. He performed two-step revealing no need for oxygen prior to discharge. (2) Diverticulitis: Acute sigmoid diverticulitis on imaging. He was started on Augmentin and give some IVF overnight, reports feeling better since admission. He will continue Augmentin as outpatient to complete the course. (3) Heartburn: long standing, started constant PPI therapy. Cont trial for several weeks. Protonix given on discharge and outpatient follow-up recommended. Total Time Total Time Spent Total Time Spent (In Minutes): 60 Discharge Plan Discharge Items Patient Disposition: Home - Home Health Services Reason For Visit: RESP FAILURE Discharge Diagnosis: Acute diverticulitis with rigors and hypoxia Acid reflux Condition on Discharge: Good Activity: Resume your previous activity Non-emergency contact: Primary Care Provider Call non-emergency contact if: you have any medication questions, your symptoms worsen, your pain is not controlled, your pain is worsening and your pain is unusual for you Follow-up/Referrals: David Brush MD [Primary Care Provider] - (Date & Time 10/01/2021 3:00 PM Provider David Brush MD Department Family Medicine [facility] ) Diet: Carb Consistent or DM2 Addtl Attending Provider Instructions: Please take all medications as instructed on discharge list below. Please continue Augmentin course for 10 days total. It is recommended that you follow-up with your primary care doctor within 1 week of discharge to ensure you are still feeling well on this antibiotic and improving from an infection standpoint. At this time you can discuss diet recommendations, or discuss a referral to a offline cutter for options. You have been provided Protonix, a proton pump inhibitor, which will help with heartburn symptoms. Please continue this for at least a couple of months as a t rial and follow-up with your primary care doctor regarding its effect. In addition to this, please cut down on your coffee intake to 1 cup daily. If this does not improve your heartburn symptoms, consider a lactose-free diet cutting out milk, cheese, butter and other dairy products. It was a pleasure taking care of you! Please call if you have any questions or problems. You can reach a [facility] hospitalist on duty at [facility] 24 hours a day by calling [phone]. Take care of yourself. Janny Ramachandran, [facility] Pending Studies at Discharge: No Stand-Alone Forms: My [facility] Medications and DC Order Prescriptions: New amoxicillin-pot clavulanate [Augmentin] 875-125 mg tablet 1 tab PO TID Qty: 30 RF: 0 pantoprazole 40 mg Tablet,Delayed Release (Dr/Ec) 40 mg PO QAM Qty: 30 RF: 0 Continued metformin 500 mg Tablet 500 mg PO BID RF: 0 citalopram 20 mg Tablet 20 mg PO DAILY RF: 0 tamsulosin 0.4 mg Capsule 0.4 mg PO DAILY RF: 0 aspirin 81 mg Tablet,Delayed Release (Dr/Ec) 81 mg PO DAILY RF: 0 tramadol 50 mg Tablet 50 mg PO BID PRN (Reason: Pain) RF: 0 benazepril 10 mg Tablet 10 mg PO DAILY RF: 0 atorvastatin 40 mg Tablet 40 mg PO HS Qty: 30 RF: 1 cholecalciferol (vitamin D3) 25 mcg (1,000 unit) Tablet 25 mcg PO DAILY RF: 0 Probiotic 3 billion cell Capsule See Rx Instructions .ROUTE .COMPLEX RF: 0 Prevagen 1 dose PO DAILY RF: 0 Discharge Orders: Discharge Order (Routine); Ordered 09/24/21 Ordered By: Janny Devlin/Other Patient Handouts: Managing Type 2 Diabetes Admission Data Admit Date/Time: 09/22/21 23:50 Attending Provider: Janny Ramachandran Admit Provider: Sarabjit Tate Primary Care Provider: David Brush Other Providers: Sarabjit Tate
== END 2021-09-24 17:18 | disposition home health service (06) | DRG 392 ==
LOC: ED 18:06 → 2N 23:50

== ENCOUNTER 2022-03-11 16:51 | Inpatient (IN) ==
--- NOTE | 2022-03-11 17:10 | Emergency Department Note ---
Impression & Plan Expressive aphasia ADMIT ED Provider Note HPI: The patient is a 81-year-old gentleman with history of hypertension, hyperlipidemia, history of TIA, presents emergency department with a chief complaint of transient aphasia. Patient states that he laid down to take a nap at around noon (5 hours prior to arrival) and woke up at some point following this with some word finding difficulty. Patient states he is not sure who called the ambulance for him. On arrival here to the ED the patient is alert and oriented x3, he no longer has any expressive aphasia, he denies any motor or sensory deficits and his physical exam/neurologic exam is reassuring on arrival. ROS: -Neuro: Transient expressive aphasia *10 point review systems was conducted and is otherwise negative unless stated above *Outpatient medications and allergy history reviewed PE: General: Alert, NAD HEENT: Normocephalic, atraumatic Eyes: Extraocular eye movement is intact, no scleral erythema Pulmonary: Clear to auscultation bilaterally, no wheezing Cardio: Regular rate and rhythm GI: Abdomen is soft, nontender : No suprapubic tenderness MSK: No evidence of trauma or malformation of the extremities, no edema Skin: No evidence of rash Neuro: Alert, no focal deficits, symmetrical facial movements are appreciated, no ataxia on [id number] testing bilaterally Psychiatric: Cooperative quality assurance monitor: - An order was placed for continuous cardiac monitoring - Patient was noted to be in sinus rhythm with rate of 60 EKG: Rate: 65 Rhythm: Sinus rhythm Intervals: MI interval prolonged at 310 ms, otherwise within normal limits ST changes: No ST elevation Time: 1655 NIH STROKE SCALE: 1A: Level of consciousness Alert; keenly responsive 0 1B: Ask month and age Both questions right 0 1C: 'Blink eyes' & 'squeeze hands' Performs both tasks 0 2: Horizontal extraocular movements Normal 0 3: Visual wiseman No visual loss 0 4: Facial palsy Normal symmetry 0 5A: Left arm motor drift No drift for 10 seconds 0 Amputation/joint fusion 0 5B: Right arm motor drift No drift for 10 seconds 0 6A: Left leg motor drift No drift for 5 seconds 0 6B: Right leg motor drift No drift for 5 seconds 0 7: Limb Ataxia No ataxia 0 8: Sensation Normal; no sensory loss 0 9: Language/aphasia Normal; no aphasia 0 10: Dysarthria Normal 0 11: Extinction/inattention No abnormality 0 TOTAL NIH SCORE = 0 Medical Decision Making: Patient is an 81-year-old gentleman who presented to the emergency department the chief complaint of episodes of transient aphasia today. Patient presents greater than 5 hours after last known well, outside the window for tPA, in addition his symptoms are resolved on presentation to the ED. On arrival he does not have any focal deficits, he does not have any word finding difficulty. Shortly after arrival IV was established, lab work obtained, patient was placed on quality assurance monitor, lab work shows evidence of a slight hypomagnesemia, otherwise electrolytes are largely within normal limits, no critical abnormalities are noted, high-sensitivity troponin level is normal. EKG does not show any ischemic changes or arrhythmia, CT imaging of the head as well as CT angiography does not show any evidence of intracranial bleeding or stroke. On my reassessment the patient is resting comfortably in bed, he is remained as ymptomatic throughout his stay here in the ED, given his age, history of hypertension, hyperlipidemia, and TIA, I do have concern that he is high risk for discharge and I believe he would benefit from admission and secondary stroke work-up and likely MRI of the brain. Patient expressed an agreement understanding as did his brother at the bedside. Patient was given aspirin. I discussed the case with the on-call hospitalist for the [facility] and the patient was admitted to an inpatient bed in stable condition. Diagnosis: 1. Strokelike symptoms/acute 2. Expressive aphasia, transient 3. hypertension 4. Hyperlipidemia 5. Hypomagnesemia Disposition: Admission Frederick Akhtar DO Emergency Medicine Past Med/Surg History Medical History Asthma BPH (benign prostatic hyperplasia) Bronchitis Depression Diabetes Diverticulitis HLD (hyperlipidemia) HTN (hypertension) Hypoxia PNA (pneumonia) PUD (peptic ulcer disease) Rectal bleeding Stomach problems UGIB (upper gastrointestinal bleed) Surgical History History of colonoscopy with polypectomy History of esophagogastroduodenoscopy (EGD) Family History Father , 71 Heart disease Mother Alzheimer disease Parkinsons disease Social History Smoking Status: Never smoker Hx Alcohol Use: No Hx Substance Use: No Preferred Language: Kyrgyz Communication Ability: Effective Hearing Ability: Hard of Hearing Cpc Coder Required: No Beliefs That Will Affect Care: None marital status: Current Living Situation: Spouse and Other Current Living Situation Comment: Lives at home with and friend current occupational status: retired Feels Safe at Home: Yes Assistive Devices: Glasses, Hearing Aid - Bilateral and Walker Allergies Allergies Allergy/AdvReac Type Severity Reaction Status Date / Time bee venom protein (honey bee) Allergy Unknown Unverified 12/30/18 20:55 Home Meds Home Medications Medication Instructions Recorded Confirmed aspirin 81 mg tablet,delayed 81 mg PO DAILY 12/30/18 09/22/21 release benazepril 10 mg tablet 10 mg PO DAILY 12/30/18 09/22/21 citalopram 20 mg tablet 20 mg PO DAILY 12/30/18 09/22/21 metformin 500 mg tablet 500 mg PO BID 12/30/18 09/22/21 tamsulosin 0.4 mg capsule 0.4 mg PO DAILY 12/30/18 09/22/21 tramadol 50 mg tablet 50 mg PO BID PRN 12/30/18 09/22/21 Prevagen 1 dose PO DAILY 09/22/21 09/22/21 cholecalciferol (vitamin D3) 25 25 mcg PO DAILY 09/22/21 09/22/21 mcg (1,000 unit) tablet lactobacillus combination no.4 3 See Rx Instructions .ROUTE .COMPLEX 09/22/21 09/22/21 billion cell capsule (Probiotic) Previous Rx's Medication Instructions Recorded atorvastatin 40 mg tablet 40 mg PO HS #30 tab 01/01/19 amoxicillin 875 mg-potassium 1 tab PO TID #30 tab 09/22/21 clavulanate 125 mg tablet (Augmentin) pantoprazole 40 mg tablet,delayed 40 mg PO QAM #30 tab 09/24/21 release Results & Data (ED) Vital Signs Vital Signs - 24 hr 03/11/22 16:40 03/11/22 17:00 Temperature 36.6 C Temperature Source Oral Pulse Rate 60 65 Pulse Rate from SpO2 Sensor 65 Respiratory Rate 18 24 Blood Pressure 146/71 H 134/75 Blood Pressure Mean 96 94 Pulse Oximetry 97 97 Oxygen Delivery Method Room Air Sepsis Recent Fever Within 48 Hours No Sepsis New/Unexplained Change in Mental Status N/A Sepsis Action Taken by Nursing No Action Required Laboratory Data Result diagrams: 03/11/22 17:00 03/11/22 17:00 Lab Results 03/11/22 03/11/22 03/11/22 Range/Units 17:00 17:00 17:00 WBC 6.20 (4.8-10.8) K/uL RBC 4.05 L (4.7-6.1) M/uL Hgb 12.9 L (14.0-18.0) g/dL Hct 36.9 L (42-52) % MCV 91.1 (80-100) fL MCH 31.9 (25-34) pg MCHC 35.0 (32-36) g/dL RDW Std Deviation 43.4 (36.4-46.3) fL RDW Coeff of Tana 13.0 (11.5-14.5) % Plt Count 198 (130-400) K/uL MPV 9.9 (7.4-10.4) fL Immature Gran % (Auto) 0.6 % Neut % (Auto) 57.4 % Lymph % (Auto) 24.8 % [place] % (Auto) 15.2 % Eos % (Auto) 1.8 % Baso % (Auto) 0.2 % Neut # (Auto) 3.56 (1.4-6.5) K/uL Lymph # (Auto) 1.54 (1.2-3.4) K/uL [place] # (Auto) 0.94 H (0.11-0.59) K/uL Eos # (Auto) 0.11 (0-0.5) K/uL Baso # (Auto) 0.01 (0-0.2) K/uL Immature Gran # (Auto) 0.04 H (0.00-0.02) K/uL PT 11.1 (9.0-12.0) Seconds INR 1.0 (0.9-1.1) APTT 21.5 (21.0-31.0) Seconds PTT Ratio 0.8 Sodium 136 (136-145) mmol/L Potassium 4.2 (3.5-5.1) mmol/L Chloride 102 (98-107) mmol/L Carbon Dioxide 24 (21-32) mmol/L Anion Gap 10 (3-11) BUN 25 H (6-23) mg/dl Creatinine 0.98 (0.6-1.4) mg/dl Est Cr Clr Drug Dosing 67.7 ml/min Est GFR ( Amer) 83.5 ml/min Est GFR (Non-Af Amer) 72.0 ml/min BUN/Creatinine Ratio 25.5 H (10-20) Glucose 148 H (70-99(Fasting)) mg/dl Calcium 9.6 (8.5-10.1) mg/dl Magnesium 1.4 L (1.7-2.4) mg/dl Total Bilirubin 0.5 (0.2-1.0) mg/dl AST 20 (13-39) U/L ALT 27 (7-52) U/L Alkaline Phosphatase 75 (34-104) U/L Troponin I High Sens 4.8 (0-20) pg/ml Total Protein 5.9 L (6.0-8.3) gm/dl Albumin 3.9 (3.4-5.0) gm/dl Globulin 2.0 L (2.5-4.0) gm/dl Albumin/Globulin Ratio 2.0 (0.9-2) Blood Type Antibody Screen 03/11/22 Range/Units 17:26 WBC (4.8-10.8) K/uL RBC (4.7-6.1) M/uL Hgb (14.0-18.0) g/dL Hct (42-52) % MCV (80-100) fL MCH (25-34) pg MCHC (32-36) g/dL RDW Std Deviation (36.4-46.3) fL RDW Coeff of Tana (11.5-14.5) % Plt Count (130-400) K/uL MPV (7.4-10.4) fL Immature Gran % (Auto) % Neut % (Auto) % Lymph % (Auto) % [place] % (Auto) % Eos % (Auto) % Baso % (Auto) % Neut # (Auto) (1.4-6.5) K/uL Lymph # (Auto) (1.2-3.4) K/uL [place] # (Auto) (0.11-0.59) K/uL Eos # (Auto) (0-0.5) K/uL Baso # (Auto) (0-0.2) K/uL Immature Gran # (Auto) (0.00-0.02) K/uL PT (9.0-12.0) Seconds INR (0.9-1.1) APTT (21.0-31.0) Seconds PTT Ratio Sodium (136-145) mmol/L Potassium (3.5-5.1) mmol/L Chloride (98-107) mmol/L Carbon Dioxide (21-32) mmol/L Anion Gap (3-11) BUN (6-23) mg/dl Creatinine (0.6-1.4) mg/dl Est Cr Clr Drug Dosing ml/min Est GFR ( Amer) ml/min Est GFR (Non-Af Amer) ml/min BUN/Creatinine Ratio (10-20) Glucose (70-99(Fasting)) mg/dl Calcium (8.5-10.1) mg/dl Magnesium (1.7-2.4) mg/dl Total Bilirubin (0.2-1.0) mg/dl AST (13-39) U/L ALT (7-52) U/L Alkaline Phosphatase (34-104) U/L Troponin I High Sens (0-20) pg/ml Total Protein (6.0-8.3) gm/dl Albumin (3.4-5.0) gm/dl Globulin (2.5-4.0) gm/dl Albumin/Globulin Ratio (0.9-2) Blood Type O Positive Antibody Screen NEGATIVE Administered Medications Discontinued Medications Aspirin (Aspirin Chew 324 Mg) 324 mg PO NOW STA Stop: 03/11/22 19:34 Last Admin: 03/11/22 19:38 Dose: 324 mg Documented by: [id number] Magnesium Sulfate/Dextrose (Magnesium Sulfate / D5w) 1 gm in 100 mls @ 100 mls/hr IV NOW STA Stop: 03/11/22 19:24 Last Admin: 03/11/22 19:27 Dose: 100 mls/hr Documented by: [id number] Ioversol (Optiray 320 125ml) 119 ml IV ONCE ONE Stop: 03/11/22 19:13 Last Admin: 03/11/22 19:12 Dose: 119 ml Documented by: [id number] Imaging Data Radiologist's Impression: Head CT 03/11/22 17:[address] DOSE: HISTORY: Headache. Dizziness. Stroke Like Symptoms TECHNIQUE: Multiaxial CT images of the head were performed without the use of intravenous contrast. Automated exposure control was utilized for this study. A dose lowering technique was utilized adhering to the principles of ALARA. Comparison: Head CT 02/13/2022. Findings: Slight improvement in the right mastoid effusion. The paranasal sinuses and left mastoid air cells are clear. The calvarium and skull base are intact. There is no mass, hematoma, midline shift, acute infarct. White matter hypodensity is nonspecific but suggestive of microvascular ischemic change. The ventricles and sulci demonstrate mild age-related involutional changes. Impression: No acute intracranial abnormality. ACT 112: Negative or not required by law. Electronically signed by: Abhilash Cruz M.D. 03/11/2022 7:17 PM Head CTA 03/11/22 17:08 HEAD & NECK CTA HISTORY: Dizziness. Headaches. Stroke Like Symptoms TECHNIQUE: Multiaxial CT images of the head were performed following the intravenous administration of contrast to evaluate the major cerebral vessels. Multiaxial CT images of the neck were also performed following the intravenous administration of contrast to evaluate the major cervical vessels. Maximum intensity projection images were also obtained. A dose lowering technique was utilized adhering to the principles of ALARA. COMPARISON: Head and neck CTA 12/30/2018. FINDINGS: There is no mass, hematoma, midline shift, or acute infarct. Visualized intracranial internal carotid arteries, distal right vertebral artery, and basilar artery are widely patent. There is no significant stenosis, occlusion, or aneurysm seen within the bilateral ACAs, MCAs, or division field inspector. 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 This remains unchanged. The aortic arch and proximal great vessels are widely patent. There is no significant stenosis, occlusion, or dissection identified within the bilateral common carotid, internal carotid, or right vertebral arteries. Hypoplastic/dimi nutive left vertebral artery with chronic occlusion at the level of C1. This remains unchanged. There is a 2 cm right thyroid nodule again noted. Right mastoid effusion is slightly improved. IMPRESSION: 1. No significant stenosis, occlusion, or aneurysm within the [place]. 2. No significant stenosis, occlusion, or dissection identified within the carotid or right vertebral arteries. 3. 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 This remains unchanged. 4. A 2 cm right thyroid nodule again noted. ACT 112: Negative or not required by law. Electronically signed by: Abhilash Cruz M.D. 03/11/2022 7:22 PM Neck CTA 03/11/22 17:08 HEAD & NECK CTA HISTORY: Dizziness. Headaches. Stroke Like Symptoms TECHNIQUE: Multiaxial CT images of the head were performed following the intravenous administration of contrast to evaluate the major cerebral vessels. Multiaxial CT images of the neck were also performed following the intravenous administration of contrast to evaluate the major cervical vessels. Maximum intensity projection images were also obtained. A dose lowering technique was utilized adhering to the principles of ALARA. COMPARISON: Head and neck CTA 12/30/2018. FINDINGS: There is no mass, hematoma, midline shift, or acute infarct. Visualized intracranial internal carotid arteries, distal right vertebral artery, and basi lar artery are widely patent. There is no significant stenosis, occlusion, or aneurysm seen within the bilateral ACAs, MCAs, or division field inspector. 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 This remains unchanged. The aortic arch and proximal great vessels are widely patent. There is no significant stenosis, occlusion, or dissection identified within the bilateral common carotid, internal carotid, or right vertebral arteries. Hypoplastic/diminutive left vertebral artery with chronic occlusion at the level of C1. This remains unchanged. There is a 2 cm right thyroid nodule again noted. Right mastoid effusion is slightly improved. IMPRESSION: 1. No significant stenosis, occlusion, or aneurysm within the [place]. 2. No significant stenosis, occlusion, or dissection identified within the carotid or right vertebral arteries. 3. 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 This remains unchanged. 4. A 2 cm right thyroid nodule again noted. ACT 112: Negative or not required by law. Electronically signed by: Abhilash Cruz M.D. 03/11/2022 7:22 PM Discharge Plan Visit Data Chief Complaint: Neuro Symptoms/Deficit ED Provider: Frederick Akhtar Discharge Problem: Expressive aphasia Forms Stand Alone Forms: [facility] Prescriptions Prescriptions: No Action metformin 500 mg Tablet 500 mg PO BID RF: 0 citalopram 20 mg Tablet 20 mg PO DAILY RF: 0 tamsulosin 0.4 mg Capsule 0.4 mg PO DAILY RF: 0 aspirin 81 mg Tablet,Delayed Release (Dr/Ec) 81 mg PO DAILY RF: 0 tramadol 50 mg Tablet 50 mg PO BID PRN (Reason: Pain) RF: 0 benazepril 10 mg Tablet 10 mg PO DAILY RF: 0 atorvastatin 40 mg Tablet 40 mg PO HS Qty: 30 RF: 1 cholecalciferol (vitamin D3) 25 mcg (1,000 unit) Tablet 25 mcg PO DAILY RF: 0 Probiotic 3 billion cell Capsule See Rx Instructions .ROUTE .COMPLEX RF: 0 Prevagen 1 dose PO DAILY RF: 0 amoxicillin-pot clavulanate [Augmentin] 875-125 mg tablet 1 tab PO TID Qty: 30 RF: 0 pantoprazole 40 mg Tablet,Delayed Release (Dr/Ec) 40 mg PO QAM Qty: 30 RF: 0 Referrals Referrals: David Brush MD [Primary Care Provider] -
[2022-03-11 17:31] LABS: Basophils # (auto) 0.01 K/uL (0-0.2); Basophils % (auto) 0.2 %; Eosinophils # (auto) 0.11 K/uL (0-0.5); Eosinophils % (auto) 1.8 %; Hematocrit (blood only) 36.9 % (42-52); Hemoglobin 12.9 g/dL (14.0-18.0); Immature Granulocytes # (auto) 0.04 K/uL (0.00-0.02); Immature Granulocytes % (auto) 0.6 %; Lymphocytes # (auto) 1.54 K/uL (1.2-3.4); Lymphocytes % (auto) 24.8 %; Mean Corpuscular Hemoglobin 31.9 pg (25-34); Mean Corpuscular Volume 91.1 fL (80-100); Mean Platelet Volume 9.9 fL (7.4-10.4); Monocytes # (auto) 0.94 K/uL (0.11-0.59); Monocytes % (auto) 15.2 %; Neutrophils # (auto) 3.56 K/uL (1.4-6.5); Neutrophils % (auto) 57.4 %; Platelet Count 198 K/uL (130-400); RDW Standard Deviation 43.4 fL (36.4-46.3); Red Blood Count 4.05 M/uL (4.7-6.1)
[2022-03-11 17:45] LABS: Partial Thromboplastin Ratio 0.8; Partial Thromboplastin Time 21.5 Seconds (21.0-31.0); Prothrombin Time 11.1 Seconds (9.0-12.0)
[2022-03-11 18:22] LABS: Troponin I High Sensitivity 4.8 pg/ml (0-20)
[2022-03-11 18:23] LABS: Albumin Level 3.9 gm/dl (3.4-5.0); BUN Creatinine Ratio 25.5 (10-20); Bilirubin,Total 0.5 mg/dl (0.2-1.0); Calcium 9.6 mg/dl (8.5-10.1); Creatinine Clr Calc Pharmacy 67.7 ml/min; Est GFR (African American) 83.5 ml/min; Magnesium 1.4 mg/dl (1.7-2.4); Potassium 4.2 mmol/L (3.5-5.1); Total Protein 5.9 gm/dl (6.0-8.3)
[2022-03-11] MEDS ORDERED: MAGNESIUM SULFATE / D5W 1 GM/100 ML BAG IV STA (18:25)
[2022-03-11] MEDS ORDERED: OPTIRAY 320 125ml IV ONE (19:12)
--- NOTE | 2022-03-11 19:18 | CT Scan Report ---
HEAD CT NONCONTRAST CT DOSE: HISTORY: Headache. Dizziness. Stroke Like Symptoms TECHNIQUE: Multiaxial CT images of the head were performed without the use of intravenous contrast. A utomated exposure control was utilized for this study. A dose lowering technique was utilized adheri ng to the principles of ALARA. Comparison: Head CT 02/13/2022. Findings: Slight improvement in the right mastoid effusion. The paranasal sinuses and left mastoid ai r cells are clear. The calvarium and skull base are intact. There is no mass, hematoma, midline shift , acute infarct. White matter hypodensity is nonspecific but suggestive of microvascular ischemic giovanni nge. The ventricles and sulci demonstrate mild age-related involutional changes. Impression: No acute intracranial abnormality. ACT 112: Negative or not required by law. Electronically signed by: Abhilash Cruz M.D. 03/11/2022 7:17 PM
--- NOTE | 2022-03-11 19:24 | CT Scan Report ---
HEAD & NECK CTA HISTORY: Dizziness. Headaches. Stroke Like Symptoms TECHNIQUE: Multiaxial CT images of the head were performed following the intravenous administration o f contrast to evaluate the major cerebral vessels. Multiaxial CT images of the neck were also perform ed following the intravenous administration of contrast to evaluate the major cervical vessels. Maxim um intensity projection images were also obtained. A dose lowering technique was utilized adhering to the principles of ALARA. COMPARISON: Head and neck CTA 12/30/2018. FINDINGS: There is no mass, hematoma, midline shift, or acute infarct. Visualized intracranial internal carotid arteries, distal right vertebral artery, and basilar artery are widely patent. There is no significa nt stenosis, occlusion, or aneurysm seen within the bilateral ACAs, MCAs, or research tech. 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 This remains unchanged. The aortic arch and proximal great vessels are widely patent. There is no significant stenosis, occ lusion, or dissection identified within the bilateral common carotid, internal carotid, or right vert ebral arteries. Hypoplastic/diminutive left vertebral artery with chronic occlusion at the level of C 1. This remains unchanged. There is a 2 cm right thyroid nodule again noted. Right mastoid effusion i s slightly improved. IMPRESSION: 1. No significant stenosis, occlusion, or aneurysm within the [place]. 2. No significant stenosis, occlusion, or dissection identified within the carotid or right vertebral arteries. 3. 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 This remains unchanged. 4. A 2 cm right thyroid nodule again noted. ACT 112: Negative or not required by law. Electronically signed by: Abhilash Cruz M.D. 03/11/2022 7:22 PM
--- NOTE | 2022-03-11 19:24 | CT Scan Report ---
HEAD & NECK CTA HISTORY: Dizziness. Headaches. Stroke Like Symptoms TECHNIQUE: Multiaxial CT images of the head were performed following the intravenous administration o f contrast to evaluate the major cerebral vessels. Multiaxial CT images of the neck were also perform ed following the intravenous administration of contrast to evaluate the major cervical vessels. Maxim um intensity projection images were also obtained. A dose lowering technique was utilized adhering to the principles of ALARA. COMPARISON: Head and neck CTA 12/30/2018. FINDINGS: There is no mass, hematoma, midline shift, or acute infarct. Visualized intracranial internal carotid arteries, distal right vertebral artery, and basilar artery are widely patent. There is no significa nt stenosis, occlusion, or aneurysm seen within the bilateral ACAs, MCAs, or potato pancake frier. 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 This remains unchanged. The aortic arch and proximal great vessels are widely patent. There is no significant stenosis, occ lusion, or dissection identified within the bilateral common carotid, internal carotid, or right vert ebral arteries. Hypoplastic/diminutive left vertebral artery with chronic occlusion at the level of C 1. This remains unchanged. There is a 2 cm right thyroid nodule again noted. Right mastoid effusion i s slightly improved. IMPRESSION: 1. No significant stenosis, occlusion, or aneurysm within the [place]. 2. No significant stenosis, occlusion, or dissection identified within the carotid or right vertebral arteries. 3. 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 This remains unchanged. 4. A 2 cm right thyroid nodule again noted. ACT 112: Negative or not required by law. Electronically signed by: Abhilash Cruz M.D. 03/11/2022 7:22 PM
[2022-03-11] MEDS ORDERED: ASPIRIN CHEW 324 MG PO STA (19:33)
[2022-03-11] MEDS ORDERED: PHARMACIST DISCHARGE MED REC CONSULT PRN (21:57)
[2022-03-11] MEDS ORDERED: SODIUM CHLORIDE 0.9% 1000ML 1,000 ML IV SCH (21:57)
[2022-03-11] MEDS ORDERED: ACETAMINOPHEN 325 MG TAB PO PRN (21:57)
[2022-03-11] MEDS ORDERED: POLYETHYLENE (MIRALAX) 17 GM PACK PO PRN (21:57)
[2022-03-11] MEDS: INSULIN ASPART PER UNIT SC SCH (22:42)
[2022-03-11] MEDS ORDERED: GLUCOSE 10 TABS/TUBE PO PRN (22:45)
[2022-03-11] MEDS ORDERED: GLUCOSE 40% GEL 15 GM TUBE PO PRN (22:45)
[2022-03-11] MEDS ORDERED: CARBOHYDRATES FOR HYPOGLYCEMIA PO PRN (22:45)
[2022-03-11] MEDS ORDERED: GLUCAGON FOR INJ 1 MG VIAL IM PRN (22:45)
[2022-03-11] MEDS ORDERED: DEXTROSE 50% 50 ML SYRINGE IV PRN (22:45)
[2022-03-11] MEDS: ATORVASTATIN 40 MG TAB PO SCH (22:53)
[2022-03-11] MEDS: TAMSULOSIN HCL 0.4 MG CAP PO SCH (22:53)
--- NOTE | 2022-03-11 23:48 | History and Physical Report ---
DATE OF ADMISSION: 03/11/2022. CHIEF COMPLAINT: TIA versus CVA. HISTORY OF PRESENT ILLNESS: This is an 81-year-old male with past medical history significant for type 2 diabetes, mild nonproliferative diabetic retinopathy, hyperlipidemia, thyroid nodule, interstitial pulmonary disease, paroxysmal atrial tachycardia, primary hypertension, history of left vertebral artery occlusion, history of sinus bradycardia, diverticulosis of colon, history of gallstones, BPH, depression, history of CVA, presents with transient expressive aphasia. The patient states that he had therapy for his hip and knee pains in the morning, did okay, then he went to sleep at 1:30pm and around 2:30pm he woke up and at that time, he felt difficulty speaking. He called his brother who lives only 150 yards away. When his brother came, he was sitting on the lawnmower and he was having very slurred speech, mouth open, trying to speak, they could not understand, they called EMT and brought him here. The episode lasted about 45 minutes to one hour. Currently, he seems to be back to close to baseline, speaking fine, alert and oriented, brother is in the room. Had some mild headache, that is improved. At noon time, he also had some chest discomfort, 2/10 in severity, that is resolved now. Denies any shortness of breath. No cough, no fever, no chills. Last 2-3 days, he has mild difficulty swallowing a couple of times. No blurred visions, no earache, no runny nose, no sore throat. Somewhat hard of hearing. No nausea, no abdominal pain. Normal bowel and bladder movements. Today, when this was happening, his balance was not that great. He sleeps okay. Currently, resting comfortably and hemodynamically stable. The patient has history of TIAs a couple of times in the past. Currently he is on Plavix and statin. ALLERGIES: BEE VENOM. PAST MEDICAL HISTORY: As mentioned above. PAST SURGICAL HISTORY: Colonoscopy, colonoscopy with biopsy, EGDs, EGD with biopsy, cataract surgeries. MEDICATIONS: The patient is on atorvastatin 40 mg p.o. at bedtime, benazepril 10 mg p.o. daily, vitamin D 50 mcg p.o. daily, citalopram 20 mg p.o. daily, Plavix 75 mg p.o. daily, metformin 500 mg p.o. b.i.d., Protonix 40 mg p.o. a.m., Flomax 0.8 mg p.o. a.m. FAMILY HISTORY: Significant for mother has Parkinson disease, Alzheimer disease; father has [place]. SOCIAL HISTORY: , former smoker, quit in 1984, smoked average 2 packs a day for 23 years. Alcohol, social drinking. No drug use. REVIEW OF SYSTEMS: As per HPI. Rest of the review of systems is negative. PHYSICAL EXAMINATION: GENERAL: The patient is obese, not in acute distress. VITAL SIGNS: Temperature 36.6, pulse 65, respiratory rate 24, blood pressure 134/75, oxygen 97% on room air. HEENT: Pupils equal, round and reactive to light. Oral mucosa moist. LUNGS: No JVD or neck masses. CARDIOVASCULAR: S1 and S2 heard. Regular rate and rhythm. No murmur, no gallop. RESPIRATORY SYSTEM: Normal AP diameter. No accessory muscle use. No wheezing, no crackles. ABDOMEN: Soft. Bowel sounds are present, nontender, no distention. CENTRAL NERVOUS SYSTEM: Alert and oriented. Speech is clear. No facial droop. Power 5/5 in all extremities. Sensation is intact. Position sense intact. Coordination of movement normal. No pronator drift. EXTREMITIES: No edema, no erythema. LABORATORY: WBC 6.2, hemoglobin 12.9, hematocrit 36.9, platelets 198. PT 11.1, INR 1, APTT 21.5. Sodium 136, potassium 4.2, chloride 102, bicarb 24, BUN 25, creatinine 0.9, serum glucose 148, calcium 9.6, magnesium 1.4, total bilirubin 0.5, AST 20, ALT 27, alkaline phosphatase 75. Troponin 1 high sensitivity 4.8. SARS-CoV-2 rapid test negative. IMAGING DATA: CTA of the head and neck, no significant stenosis, occlusion, or aneurysm within the [place], no significant stenosis, occlusion, or dissection identified within the carotid or vertebral arteries. 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 A 2 cm thyroid nodule again noted. CT of the head, no acute intracranial abnormality. EKG: Normal sinus rhythm with first-degree AV block at a rate of 65, no significant change was found. ASSESSMENT AND PLAN: This is an 81-year-old male who presents with stroke-like symptoms. 1. Transient expressive aphasia, history of transient ischemic attacks in the past: On statin and Plavix. CTA of the head and neck and CT of the head is okay. Will do full stroke workup with MRI scan, echo, speech evaluation, PT, OT evaluation, neurology evaluation in the a.m. Monitor in the tele floor. 2. Diabetes: Hold his metformin. Placed on insulin sliding scale. Follow the blood sugars. 3. History of depression: Continue citalopram. 4. History of hypertension: Continue benazepril. 5. History of benign prostatic hypertrophy: Continue Flomax. 6. History of hyperlipidemia: Continue statin. 7. History of gastroesophageal reflux disease: Continue Protonix. 8. Deep venous thrombosis prophylaxis: Sequential compression devices for now. DISPOSITION: Closely monitor in tele floor. Level 1 full code. PT, OT prior to discharge. Social service to help with discharge planning. is having cancer tx and son is boom truck driver difficult to get hold to. So Brother advised to call him for any updates and for discharge. Thanks Job ID: [id number] [facility]
[2022-03-12 06:47] LABS: Basophils # (auto) 0.01 K/uL (0-0.2); Basophils % (auto) 0.2 %; Eosinophils # (auto) 0.08 K/uL (0-0.5); Eosinophils % (auto) 1.4 %; Hematocrit (blood only) 36.4 % (42-52); Hemoglobin 12.9 g/dL (14.0-18.0); Immature Granulocytes # (auto) 0.03 K/uL (0.00-0.02); Immature Granulocytes % (auto) 0.5 %; Lymphocytes # (auto) 1.64 K/uL (1.2-3.4); Mean Corpuscular Hemoglobin 31.9 pg (25-34); Mean Corpuscular Hgb Conc 35.4 g/dL (32-36); Mean Corpuscular Volume 90.1 fL (80-100); Mean Platelet Volume 9.5 fL (7.4-10.4); Monocytes # (auto) 0.66 K/uL (0.11-0.59); Monocytes % (auto) 11.7 %; Neutrophils # (auto) 3.23 K/uL (1.4-6.5); Neutrophils % (auto) 57.2 %; Platelet Count 161 K/uL (130-400); RDW Coefficient of Variation 12.8 % (11.5-14.5); RDW Standard Deviation 42.2 fL (36.4-46.3); Red Blood Count 4.04 M/uL (4.7-6.1); White Blood Count 5.65 K/uL (4.8-10.8)
[2022-03-12 07:18] LABS: BUN Creatinine Ratio 22.5 (10-20); Calcium 9.1 mg/dl (8.5-10.1); Chol HDL Ratio 2.5 (0-5); Creatinine Clr Calc Pharmacy 72.4 ml/min; Est GFR (African American) 92.9 ml/min; Est GFR (Non-African American) 80.2 ml/min; Potassium 3.9 mmol/L (3.5-5.1)
[2022-03-12 07:28] LABS: Estimated Average Glucose 197 mg/dl; Hemoglobin A1C 8.5 % (4.5-5.6)
[2022-03-12] MEDS: CHOLECALCIFEROL 1,000 UNITS 25 MCG TAB PO SCH (08:33)
[2022-03-12] MEDS: CITALOPRAM 20 MG TAB PO SCH (08:33)
[2022-03-12] MEDS: PANTOprazole 40 MG TAB PO SCH (08:33)
[2022-03-12] MEDS: INSULIN ASPART PER UNIT SC SCH ×4 (08:35→20:26)
[2022-03-12] MEDS ORDERED: CLOPIDOGREL BISULFATE 75 MG TAB PO SCH (09:00)
[2022-03-12] MEDS ORDERED: NON-FORMULARY MEDICATION (Glucosam-Chond-Hyalu-Cf Borate [Move Free Joint Health] 750 mg-1 PO SCH (09:00)
[2022-03-12] MEDS ORDERED: ENALAPRIL MALEATE 10 MG TAB PO SCH (09:00)
--- NOTE | 2022-03-12 11:45 | CT Scan Report ---
HEAD CT NONCONTRAST CT DOSE: 1647.88 mGycm HISTORY: aphasia, r/o acute CVA TECHNIQUE: Multiaxial CT images of the head were performed without the use of intravenous contrast. A utomated exposure control was utilized for this study. A dose lowering technique was utilized adheri ng to the principles of ALARA. Comparison: Head CT 03/11/2022. Findings: Small right mastoid effusion, unchanged. The paranasal sinuses and left mastoid air cells a re clear. The calvarium and skull base are intact. There is no mass, hematoma, midline shift, acute i nfarct. White matter hypodensity is nonspecific but suggestive of microvascular ischemic change. The ventricles and sulci demonstrate mild age-related involutional changes. Impression: No significant change compared to the prior study. No acute intracranial abnormality. ACT 112: Negative or not required by law. Electronically signed by: Abhilash Cruz M.D. 03/12/2022 11:44 AM
[2022-03-12] MEDS ORDERED: SODIUM CHLORIDE 0.9% 10ML FLUSH IV STA (12:28)
[2022-03-12] MEDS ORDERED: STAT IV STA (12:28)
[2022-03-12] MEDS ORDERED: PHARMACIST DISCHARGE MED REC CONSULT PRN (12:29)
[2022-03-12] MEDS ORDERED: No Aspirin within 24hrs of THROMBOLYTIC-Stroke SCH (12:30)
[2022-03-12] MEDS ORDERED: TENECTEPLASE 23 MG in SYRINGE 0 ML IV ONE (12:38)
--- NOTE | 2022-03-12 13:32 | Hospitalist Progress Note ---
Date of Service March 12, 2022 Assessment & Plan (1) Acute CVA (cerebrovascular accident): Plan: ASSESSMENT AND PLAN: This is an 81-year-old male who presents with stroke-like symptoms. 1. Acute CVA, s/p TKA History of CVA, TIA- on Plavix and Lipitor CTA head and neck: 1. No significant stenosis, occlusion, or aneurysm within the [place]. 2. No significant stenosis, occlusion, or dissection identified within the carotid or right vertebral arteries. 3. 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 This remains unchanged. 4. A 2 cm right thyroid nodule again noted. at around 1115am, patient noted to have expressive and receptive aphasia by RN, no other deficits noted stroke alert called seen at bedside immediately, alert, not oriented, (+) dysarthria, has difficulty following simple commands CT head stat performed: no acute process discussed case with Nupur Ritter neurologist Telestroke protocol performed she recommended TPA administration tried to contact patient's multiple times- per friend, she is receiving chemo tried to go to [facility] and call Tanya Kurtz's Richard- unable to contact tried to call patient's son- no answer- voicemail left discussed with Pharmacist Luanne, we have decided to proceed with TKA administration in the best interest of the patient post TKA protocol ordered, transferred to ICU MRI brain w/o contrast hold Plavix [facility] Neuro Consulted history of transient ischemic attacks in the past: On statin and Plavix. CTA of the head and neck and CT of the head is okay. Will do full stroke workup with MRI scan, echo, speech evaluation, PT, OT evaluation, neurology evaluation in the a.m. Monitor in the tele floor. 2. Diabetes: Hold his metformin. Placed on insulin sliding scale. Follow the blood sugars. 3. History of depression: Continue citalopram. 4. History of hypertension: hold Benazepril 5. History of benign prostatic hypertrophy: Continue Flomax. 6. History of hyperlipidemia: Continue Lipitor 7. History of gastroesophageal reflux disease: Continue Protonix. 8. Deep venous thrombosis prophylaxis: Sequential compression devices for now. plan of care discussed with patient's brother Aakash who called right after TKA administration in detail and at length all questions answered he is understanding, agreeable, comfortable with the plan of care Admission and Anticipated Discharge Date Admission Date: March 11, 2022 Subjective ff up for acute cva, etc seen around 10am having echo done alert, oriented x 3, answers all questions appropriately states he feels much better overall denies headache, dizziness, dyspnea, chest pain, palpitations, abdominal pain, nausea/vomiting denies difficulty speaking or understanding, focal weakness or numbness, or any other neuro deficit no other symptoms Review of Systems Review of Systems: all noted and negative except for above Physical Exam Physical Exam: General- oriented x 3, not in distress, speaks in sentences with no effort or accessory muscle use Head- atraumatic Eyes- PERRL, EOMI, anicteric ENT- oropharynx clear Neck- supple, no JVD, no adenopathy, no thyromegaly; carotids +2/2, no bruits appreciated Lungs- clear to auscultation bilaterally, no rales/wheezes Heart- normal rate, regular rhythm; no murmur, no gallop, no rub appreciated Abdomen- normal bowel sounds, nondistended, soft, nontender, no masses or hepatosplenomegaly Extremities- no pretibial edema, no calf tenderness; peripheral pulses intact Neuro- alert, oriented x 3; CN 2-12 grossly intact; motor 5/5 bilaterally;sensation 100% on all extremities; no other gross focal neurologic deficits Skin- warm & dry Results & Data Results & Data ([facility]) Vital Signs (Past 12 Hours) Vital Signs Temp Pulse Pulse Resp BP Pulse Ox 03/12/22 13:15 36.8 C 64 20 170/98 H 97 03/12/22 13:00 37 C 60 19 149/58 H 96 03/12/22 12:45 37.1 C 60 16 135/59 L 97 03/12/22 12:30 36.9 C 59 L 19 144/59 H 95 03/12/22 11:21 36.8 C 61 17 164/83 H 94 03/12/22 09:47 63 03/12/22 07:44 36.5 C 54 L 16 122/72 95 03/12/22 03:00 36.7 C 54 L 16 104/61 93 all noted and reviewed including below
--- NOTE | 2022-03-12 15:35 | Electrocardiogram Report ---
Test Reason : Blood Pressure : / mmHG Vent. Rate : 065 BPM Atrial Rate : 065 BPM P-R Int : 310 ms QRS Dur : 088 ms QT Int : 450 ms P-R-T Axes : 006 -02 043 degrees QTc Int : 468 ms Sinus rhythm with 1st degree A-V block Low voltage QRS Borderline ECG When compared with ECG of 13-FEB-2022 13:38, No significant change was found Confirmed by Tyson Aviles ([id number]) on 03/12/2022 3:35:34 PM Referred By: REFERRED SELF Confirmed By:Tyson Aviles
--- NOTE | 2022-03-12 16:37 | Critical Care Consultation ---
Date of Consultation March 12, 2022 Assessment & Plan (1) Stroke-like symptoms: Reason Critically Ill: 81 yo male with PMHx of DM2, mild nonproliferative diabetic retinopathy, HLD, thyroid nodule, interstitial pulmonary disease, paroxysmal atrial tachycardia, HTN, history of left vertebral artery occlusion, history of sinus bradycardia, diverticulosis of colon, history of gallstones, BPH, depression, history of CVA presented to the ED with transient expressive aphasia. Admitted for stroke workup and was improving until this morning when he had another episode. Now s/p TNKase administration. Neuro: CAM ICU: Negative Sedation: None Analgesia: Tylenol Stroke like symptoms this morning, now resolved. CT showed no acute process. Decision was made to administer TNKase since in window. Continue holding Plavix. Repeat CT 24 hours s/p TNKase administration. MRI w/wo contrast pending Aspiration precautions, q4h neuro checks, dysphagia screen, speech consult Cardiac: BP stable Hold aspirin, Plavix Continue statin Continue home DESMOND-i, tamsulosin Respiratory: Saturating well on room air Ventilatory assistance not needed at this time GI: Full liquid diet, advance as tolerated Continue Protonix RENAL/LYTES: Replace lytes as needed. : Morrow in place, red-tinged urine likely secondary to recent TNKase administration ENDO: Strict glucose control per protocol HEME: Stable H&H ID: No concerns for infection at this point LINES/IV ACCESS: PIVs intact. DVT PROPHYLAXIS: SCDs Thank you for allowing us to be part of this patient's care. Please refer to Dr. Rowland's documentation for any further recommendations. (2) TIA (transient ischemic attack): (3) HLD (hyperlipidemia): (4) HTN (hypertension): (5) Diabetes: (6) Thrombosis of left vertebral artery: Supervising Physician Co-Signing Physician Notes Patient seen and examined with resident physician. Agree with assessment and plan aside for any additions/exceptions: Patient's aphasia symptoms improving at this time. He remains hemodynamically stable. Continue post thrombolytic monitoring in the ICU. Continue frequent neurovascular checks. Anticipate downgrade out of the ICU tomorrow. We will obtain an MRI of the brain today. Appreciate neurology input. Constitutional: Patient appears to be of their stated age. Patient is in no apparent distress. Patient is well-developed. Eyes: Pupils are equal round and reactive to light. Conjunctivae are normal. Anicteric sclera. Ears nose, mouth and throat: Normal posterior oropharynx. Uvula is midline. Neck: Trachea is midline. Visual inspection is normal. Respiratory: Clear to auscultation bilaterally. No use of accessory muscles. No significant clubbing noted. Cardiovascular: Regular rate and rhythm. No murmurs. No edema. Gastrointestinal: Normal bowel sounds, soft, nontender and nondistended. No hepatosplenomegaly noted. Musculoskeletal: No cyanosis. Patient is able to move all extremities. Strength is 5 out of 5 in the upper and lower extremities. Skin: No rashes, warm dry and intact. Neurologic: No obvious focal neurological deficits seen. Psychiatric: Alert and oriented x3 with a euthymic affect. History of Present Illness Reason for Consultation: stroke like symptoms, TNKase administration Attending Physician: Ritchie Felipe MD History of Present Illness 81 yo male with PMHx of DM2, mild nonproliferative diabetic retinopathy, HLD, thyroid nodule, interstitial pulmonary disease, paroxysmal atrial tachycardia, HTN, history of left vertebral artery occlusion, history of sinus bradycardia, diverticulosis of colon, history of gallstones, BPH, depression, history of CVA presented to the ED with transient expressive aphasia. Per previous note, his episode lasted about 45 minutes as symptoms resolved. He was continuing to improve until this morning around 11:15 AM he was noted to have expressive and receptive aphasia found by RN, no other deficits were noted at the time. A stroke alert was called and at bedside he was not oriented with dysarthria and some difficulty following simple commands. A stat CT head was performed which showed no acute process. Telestroke protocol was performed and it was recommended patient undergo tPA administration. The decision was made to proceed with TNKase administration. Patient seen at bedside s/p TNK administration and has significantly improved. Denies chest pain, abdominal pain, shortness of breath, headache, difficulty swallowing. Morrow in place. Normal bowel movements. The patient does have a history of TIAs in the past and is on Plavix and statin. Plavix was held during TNK administration. Allergies Allergy/AdvReac Type Severity Reaction Status Date / Time bee venom protein (honey bee) Allergy Unknown Unverified 03/11/22 20:33 Home Medications Medication Instructions Recorded Confirmed Type benazepril 10 mg tablet 10 mg PO DAILY 12/30/18 03/11/22 History citalopram 20 mg tablet 20 mg PO DAILY 12/30/18 03/11/22 History metformin 500 mg tablet 500 mg PO BID 12/30/18 03/11/22 History tamsulosin 0.4 mg capsule 0.8 mg PO QPM 12/30/18 03/11/22 History atorvastatin 40 mg tablet 40 mg PO HS #30 tab 01/01/19 03/11/22 Rx cholecalciferol (vitamin D3) 25 50 mcg PO DAILY 09/22/21 03/11/22 History mcg (1,000 unit) tablet pantoprazole 40 mg tablet,delayed 40 mg PO QAM #30 tab 09/24/21 03/11/22 Rx release clopidogrel 75 mg tablet 75 mg PO DAILY 03/11/22 03/11/22 History glucosam 750 mg-chondroi 100 2 tab PO DAILY 03/11/22 03/11/22 History mg-hyalur 1.65 mg-CF borate 108 mg tablet ([employer]) Patient History Medical History Asthma BPH (benign prostatic hyperplasia) Bronchitis Depression Diabetes Diverticulitis HLD (hyperlipidemia) HTN (hypertension) Hypoxia PNA (pneumonia) PUD (peptic ulcer disease) Rectal bleeding Stomach problems UGIB (upper gastrointestinal bleed) Surgical History History of colonoscopy with polypectomy History of esophagogastroduodenoscopy (EGD) Family History Father , 71 Heart disease Mother Alzheimer disease Parkinsons disease Social History Smoking Status: Former smoker Hx Alcohol Use: No Hx Substance Use: No Preferred Language: Icelandic Communication Ability: Effective Hearing Ability: Hard of Hearing Binder Stripper Machine Required: No Beliefs That Will Affect Care: None marital status: Current Living Situation: Spouse Current Living Situation Comment: Lives at home with and friend current occupational status: retired Other Information That Helps Us Care for You: No Feels Safe at Home: Yes Safety Concerns: Feels Safe At This Time Assistive Devices: None Review of Systems Review of Systems: All systems reviewed & are unremarkable except as noted in HPI & below Physical Exam Physical Exam: General- in no acute distress, speaks in sentences with no effort or accessory muscle use Head-NCAT Eyes- PERRL, EOMI, anicteric ENT- oropharynx clear Neck- supple, no JVD, no adenopathy, no carotid bruits appreciated Lungs- clear to auscultation bilaterally, no rales/wheezes Heart- RRR, no murmurs Abdomen- normal bowel sounds, nondistended, soft, nontender Extremities- no lower extremity edema, no calf tenderness, peripheral pulses intact Neuro- alert, oriented to self and time, unsure which hospital he is in but knows which city; mild droop left lower face upon smiling otherwise CN 2-12 jameel sly intact, motor strength 5/5 bilaterally, normal sensation bilaterally, no other gross focal neurologic deficits Skin- warm and dry - morrow in place with red tinged urine Results & Data Results & Data ([facility]) Vital Signs (Past 12 Hours) Vital Signs Temp Pulse Pulse Resp BP Pulse Ox 03/12/22 16:15 36.9 C 76 18 147/61 H 94 03/12/22 15:45 36.9 C 65 17 121/89 98 03/12/22 15:15 37 C 69 21 150/77 H 99 03/12/22 14:45 36.8 C 64 18 160/78 H 94 03/12/22 14:30 37 C 66 14 138/64 95 03/12/22 14:15 37 C 58 L 16 168/72 H 96 03/12/22 14:00 37 C 60 16 163/69 H 96 03/12/22 13:45 37 C 60 16 163/69 H 97 03/12/22 13:22 36.8 C 92 H 22 164/70 H 98 03/12/22 13:15 36.8 C 64 20 170/98 H 97 03/12/22 13:00 37 C 60 19 149/58 H 96 03/12/22 12:45 37.1 C 60 16 135/59 L 97 03/12/22 12:30 36.9 C 59 L 19 144/59 H 95 03/12/22 11:21 36.8 C 61 17 164/83 H 94 03/12/22 09:47 63 03/12/22 07:44 36.5 C 54 L 16 122/72 95 Laboratory Results Laboratory Results WBC 5.65 K/uL (4.8-10.8) 03/12/22 06:21 RBC 4.04 M/uL (4.7-6.1) L 03/12/22 06:21 Hgb 12.9 g/dL (14.0-18.0) L 03/12/22 06:21 Hct 36.4 % (42-52) L 03/12/22 06:21 MCV 90.1 fL (80-100) 03/12/22 06:21 MCH 31.9 pg (25-34) 03/12/22 06:21 MCHC 35.4 g/dL (32-36) 03/12/22 06:21 RDW Std Deviation 42.2 fL (36.4-46.3) 03/12/22 06:21 RDW Coeff of Tana 12.8 % (11.5-14.5) 03/12/22 06:21 Plt Count 161 K/uL (130-400) 03/12/22 06:21 MPV 9.5 fL (7.4-10.4) 03/12/22 06:21 Immature Gran % (Auto) 0.5 % 03/12/22 06:21 Neut % (Auto) 57.2 % 03/12/22 06:21 Lymph % (Auto) 29.0 % 03/12/22 06:21 [place] % (Auto) 11.7 % 03/12/22 06:21 Eos % (Auto) 1.4 % 03/12/22 06:21 Baso % (Auto) 0.2 % 03/12/22 06:21 Neut # (Auto) 3.23 K/uL (1.4-6.5) 03/12/22 06:21 Lymph # (Auto) 1.64 K/uL (1.2-3.4) 03/12/22 06:21 [place] # (Auto) 0.66 K/uL (0.11-0.59) H 03/12/22 06:21 Eos # (Auto) 0.08 K/uL (0-0.5) 03/12/22 06:21 Baso # (Auto) 0.01 K/uL (0-0.2) 03/12/22 06:21 Immature Gran # (Auto) 0.03 K/uL (0.00-0.02) H 03/12/22 06:21 PT 11.1 Seconds (9.0-12.0) 03/11/22 17:00 INR 1.0 (0.9-1.1) 03/11/22 17:00 APTT 21.5 Seconds (21.0-31.0) 03/11/22 17:00 PTT Ratio 0.8 03/11/22 17:00 Sodium 137 mmol/L (136-145) 03/12/22 06:21 Potassium 3.9 mmol/L (3.5-5.1) 03/12/22 06:21 Chloride 105 mmol/L (98-107) 03/12/22 06:21 Carbon Dioxide 26 mmol/L (21-32) 03/12/22 06:21 Anion Gap 6 (3-11) 03/12/22 06:21 BUN 20 mg/dl (6-23) 03/12/22 06:21 Creatinine 0.89 mg/dl (0.6-1.4) 03/12/22 06:21 Est Cr Clr Drug Dosing 72.4 ml/min 03/12/22 06:21 Est GFR ( Amer) 92.9 ml/min 03/12/22 06:21 Est GFR (Non-Af Amer) 80.2 ml/min 03/12/22 06:21 BUN/Creatinine Ratio 22.5 (10-20) H 03/12/22 06:21 Glucose 123 mg/dl (70-99(Fasting)) H 03/12/22 06:21 POC Glucose 142 mg/dl (70-99) H 03/12/22 16:37 Estimat Average Glucose 197 mg/dl 03/12/22 06:21 Hemoglobin A1c 8.5 % (4.5-5.6) H 03/12/22 06:21 Calcium 9.1 mg/dl (8.5-10.1) 03/12/22 06:21 Magnesium 1.4 mg/dl (1.7-2.4) L 03/11/22 17:00 Total Bilirubin 0.5 mg/dl (0.2-1.0) 03/11/22 17:00 AST 20 U/L (13-39) 03/11/22 17:00 ALT 27 U/L (7-52) 03/11/22 17:00 Alkaline Phosphatase 75 U/L (34-104) 03/11/22 17:00 Troponin I High Sens 4.8 pg/ml (0-20) 03/11/22 17:00 Total Protein 5.9 gm/dl (6.0-8.3) L 03/11/22 17:00 Albumin 3.9 gm/dl (3.4-5.0) 03/11/22 17:00 Globulin 2.0 gm/dl (2.5-4.0) L 03/11/22 17:00 Albumin/Globulin Ratio 2.0 (0.9-2) 03/11/22 17:00 Triglycerides 124 mg/dl (0-150) 03/12/22 06:21 Cholesterol 93 mg/dl (0-200) 03/12/22 06:21 LDL Cholesterol, Calc 31 mg/dl 03/12/22 06:21 VLDL Cholesterol, Calc 25 mg/dl (0-30) 03/12/22 06:21 HDL Cholesterol 37 mg/dl 03/12/22 06:21 Cholesterol/HDL Ratio 2.5 (0-5) 03/12/22 06:21 SARS-CoV-2, RNA, NAAT NEGATIVE (NEGATIVE) 03/11/22 19:40 Blood Type O Positive 03/11/22 17:26 Antibody Screen NEGATIVE 03/11/22 17:26 Impressions Head CTA 03/11/22 17:08 HEAD & NECK CTA HISTORY: Dizziness. Headaches. Stroke Like Symptoms TECHNIQUE: Multiaxial CT images of the head were performed following the intravenous administration of contrast to evaluate the major cerebral vessels. Multiaxial CT images of the neck were also performed following the intravenous administration of contrast to evaluate the major cervical vessels. Maximum intensity projection images were also obtained. A dose lowering technique was utilized adhering to the principles of ALARA. COMPARISON: Head and neck CTA 12/30/2018. FINDINGS: There is no mass, hematoma, midline shift, or acute infarct. Visualized intracranial internal carotid arteries, distal right vertebral artery, and basilar artery are widely patent. There is no significant stenosis, occlusion, or aneurysm seen within the bilateral ACAs, MCAs, or data security coordinator. 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 This remains unchanged. The aortic arch and proximal great vessels are widely patent. There is no significant stenosis, occlusion, or dissection identified within the bilateral common carotid, internal carotid, or right vertebral arteries. Hypoplastic/diminutive left vertebral artery with chronic occlusion at the level of C1. This remains unchanged. There is a 2 cm right thyroid nodule again noted. Right mastoid effusion is slightly improved. IMPRESSION: 1. No significant stenosis, occlusion, or aneurysm within the [place]. 2. No significant stenosis, occlusion, or dissection identified within the carotid or right vertebral arteries. 3. 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 This remains unchanged. 4. A 2 cm right thyroid nodule again noted. ACT 112: Negative or not required by law. Electronically signed by: Abhilash Cruz M.D. 03/11/2022 7:22 PM Neck CTA 03/11/22 17:08 HEAD & NECK CTA HISTORY: Dizziness. Headaches. Stroke Like Symptoms TECHNIQUE: Multiaxial CT images of the head were performed following the intravenous administration of contrast to evaluate the major cerebral vessels. Multiaxial CT images of the neck were also performed following the intravenous administration of contrast to evaluate the major cervical vessels. Maximum intensity projection images were also obtained. A dose lowering technique was utilized adhering to the principles of ALARA. COMPARISON: Head and neck CTA 12/30/2018. FINDINGS: There is no mass, hematoma, midline shift, or acute infarct. Visualized intracranial internal carotid arteries, distal right vertebral artery, and basi lar artery are widely patent. There is no significant stenosis, occlusion, or aneurysm seen within the bilateral ACAs, MCAs, or data security coordinator. 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 This remains unchanged. The aortic arch and proximal great vessels are widely patent. There is no significant stenosis, occlusion, or dissection identified within the bilateral common carotid, internal carotid, or right vertebral arteries. Hypoplastic/diminutive left vertebral artery with chronic occlusion at the level of C1. This remains unchanged. There is a 2 cm right thyroid nodule again noted. Right mastoid effusion is slightly improved. IMPRESSION: 1. No significant stenosis, occlusion, or aneurysm within the [place]. 2. No significant stenosis, occlusion, or dissection identified within the carotid or right vertebral arteries. 3. 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 This remains unchanged. 4. A 2 cm right thyroid nodule again noted. ACT 112: Negative or not required by law. Electronically signed by: Abhilash Cruz M.D. 03/11/2022 7:[address] 03/12/22 11:[address] DOSE: 1647.88 mGycm HISTORY: aphasia, r/o acute CVA TECHNIQUE: Multiaxial CT images of the head were performed without the use of intravenous contrast. Automated exposure control was utilized for this study. A dose lowering technique was utilized adhering to the principles of ALARA. Comparison: Head CT 03/11/2022. Findings: Small right mastoid effusion, unchanged. The paranasal sinuses and left mastoid air cells are clear. The calvarium and skull base are intact. There is no mass, hematoma, midline shift, acute infarct. White matter hypodensity is nonspecific but suggestive of microvascular ischemic change. The ventricles and sulci demonstrate mild age-related involutional changes. Impression: No significant change compared to the prior study. No acute intracranial abnormality. ACT 112: Negative or not required by law. Electronically signed by: Abhilash Cruz M.D. 03/12/2022 11:44 AM Resident Activity Tracking Resident Involvement: Resident Care Provided Care Provided: [facility]
--- NOTE | 2022-03-12 16:55 | Consultation Report ---
DATE OF CONSULTATION: 03/12/2022. REASON FOR CONSULTATION: Possible stroke or transient ischemic attack. HISTORY OF PRESENT ILLNESS: The patient is an 81-year-old right-handed male with a history of type 2 diabetes, diabetic retinopathy, hyperlipidemia, thyroid nodule, interstitial pulmonary disease, PAT, hypertension, left vertebral artery occlusion, sinus bradycardia, diverticulosis, gallstones, BPH, d epression, history of stroke, presented with transient expressive aphasia. Yesterday afternoon he wok e up and had difficulty finding the right words. When his brother came over to the home, he was sitt ing on a lawnmower, had very slurred speech, trying to speak, but they could not understand what he w as saying. Apparently, there was no facial droop, unilateral weakness or numbness. The episode last ed about 45 minutes. It was not accompanied by headache. By report, the patient was at baseline whi le in the Emergency Room. There also have been some chest pain that had resolved. This morning at a bout 10:30, the patient was noted to have receptive and expressive aphasia as well as possibly some c onfusion and dysarthria. No facial droop or unilateral weakness was noted. The patient reports that he has had multiple transient ischemic attacks. They found this as if they all resulted in right-sided weakness. He has otherwise been well. He has not had any recent head or neck trauma. He has not had any chiro practic manipulation of the neck. He has not had any medical or dental procedures. He has recently been well. He does not smoke. No family history of stroke. PAST MEDICAL HISTORY: As above. PAST SURGICAL HISTORY: Colonoscopy, EGD, cataract surgery. HOME MEDICATIONS: Atorvastatin, benazepril, vitamin D, Celexa, Plavix, metformin, Protonix, Flomax. The patient received TPA this morning. FAMILY HISTORY: Parkinson's disease, Alzheimer disease. Father had MO. SOCIAL HISTORY: Former smoker, discontinued in 1984. Rare alcohol. CTA of head and neck on initial admission were unremarkable without acute abnormalities. CTA of the head showed no significant stenosis, occlusion or aneurysm within the [place], no occlusion or dissection identified within the carotid arteries or the right vertebral artery, chronic occlusion of the distal left vertebral artery with reconstitution at the level of the pica, which remains unch anged, 2 cm thyroid nodule noted. Patient's echocardiogram technically limited, grossly normal valvu lar structure and function. Previously, the patient had a microcavitation study that was negative fo r PFO. Left atrium not well visualized. Right ventricle not well visualized. Laboratory data was notable for an H and H of 12.9/36.9, normal platelet count. PT, PTT normal. Radha svetlana profile notable for a nonfasting glucose of 148. Hemoglobin A1c of 8.5, LDL of 31. COVID neg ative. PHYSICAL EXAMINATION: VITAL SIGNS: 121/89, 99, 98%. GENERAL: The patient is awake and alert. He is oriented x3. He has intact receptive language repet ition and naming. However, spontaneous speech is notable for paraphasic errors. There is mild dysar thria. HEENT: Head is normocephalic, atraumatic. There are no carotid or vertebral bruits. HEART: Regular rate and rhythm. No murmur, rub or gallop appreciable. EXTREMITIES: No calf swelling or tenderness is noted. NEUROLOGIC: Pupils are equal, round and reactive to light. The optic nerves are unremarkable. Ther e are normal wiseman, motility, facial sensation, facial symmetry. Tongue is midline. Gag may be mil dly depressed on the left compared to right. Motor: Normal bulk and tone, full strength, no drift. Normal rapid alternating movements. Symmetric reflexes, downgoing toes. Yjnfjk-[id number] and heel-to -sherwood are normal. There is no dysdiadochokinesia. Sensation is intact to light touch bilaterally. Gait was not tested. IMPRESSION: Left hemisphere transient ischemic attack, recurrent versus stroke. PLAN: Once the patient has past 24 hours after administration of TPA, can add aspirin and resume Jose vix. Recommend MRI brain. The patient will need cardiac monitoring as an outpatient with a [facility]. The patient may require treatment for diabetes given his hemoglobin A1c. If the imaging is absol utely normal and this has been recurrent, one might consider performing an EEG to rule out partial co mplex seizure. Clinically, I do not think that is the case at present. We will follow with you. Job ID: [id number]
--- NOTE | 2022-03-12 17:41 | Billing Data ---
Date of Service March 12, 2022 Coding Level of Care Code 48046 Initial Inpt Care Lvl 2
[2022-03-12] MEDS: TAMSULOSIN HCL 0.4 MG CAP PO SCH (20:27)
[2022-03-12] MEDS: ATORVASTATIN 40 MG TAB PO SCH (20:27)
[2022-03-12] MEDS ORDERED: GADOBUTROL 65ML VIAL IV ONE (22:48)
--- NOTE | 2022-03-12 23:09 | Magnetic Resonance Report ---
MRI OF THE BRAIN COMBO CLINICAL HISTORY: Aphasia. Status post TKA. COMPARISON STUDY: CT end CT angiogram of the brain dated 03/12/2022. MRI of the brain dated 12/31/2018. TECHNIQUE: MRI of the brain was performed utilizing various T1 and T2-weighted sequences in the axial , sagittal, and coronal planes. Contrast-enhanced sequences were acquired following the administratio n of 9 cc of Gadavist. FINDINGS: Brain parenchyma: There is age-related involutional change noting advanced confluent subcortical and periventricular microangiopathic disease. There is no hemorrhage or mass effect. There is no restrict ed diffusion to suggest acute ischemia. No enhancing mass lesion is identified on the postcontrast im ages. A tiny chronic lacunar infarct is noted in the right cerebellar hemisphere. Kurtz-white matter d ifferentiation is preserved. No extra-axial fluid collection is seen. The cerebellar tonsils are norm al in configuration. Ventricles, sulci, and cisterns: Prominent secondary to involutional change. Pituitary and sella: Unremarkable. Intracranial vasculature: Loss of the left vertebral artery flow void at the skull base is unchanged. The remaining flow-voids the skull base are patent. Orbits: The bony orbits are grossly intact. Orbital contents are normal in appearance noting bilatera l ocular lens implants. Sinuses and mastoids: There are bilateral mastoid effusions, right larger than left. The paranasal si nuses are clear. Calvarium: Unremarkable. Cervical cord: Partially visualized cervical spinal cord is normal in morphology and signal intensity . IMPRESSION: 1. No acute intracranial abnormality. 2. Loss of the left vertebral artery flow-void at the skull base is unchanged from previous. This was better assessed on today's CT angiogram. 3. Bilateral mastoid effusions. ACT 112: Negative or not required by law. Electronically signed by: Lito Sheehan M.D. 03/12/2022 11:07 PM
[2022-03-13 05:44] LABS: Basophils # (auto) 0.01 K/uL (0-0.2); Basophils % (auto) 0.1 %; Eosinophils # (auto) 0.08 K/uL (0-0.5); Eosinophils % (auto) 1.2 %; Hematocrit (blood only) 38.9 % (42-52); Hemoglobin 13.2 g/dL (14.0-18.0); Immature Granulocytes # (auto) 0.03 K/uL (0.00-0.02); Immature Granulocytes % (auto) 0.4 %; Lymphocytes # (auto) 1.68 K/uL (1.2-3.4); Lymphocytes % (auto) 25.1 %; Mean Corpuscular Hemoglobin 30.4 pg (25-34); Mean Corpuscular Hgb Conc 33.9 g/dL (32-36); Mean Corpuscular Volume 89.6 fL (80-100); Mean Platelet Volume 9.8 fL (7.4-10.4); Monocytes % (auto) 13.5 %; Neutrophils # (auto) 3.98 K/uL (1.4-6.5); Neutrophils % (auto) 59.7 %; Platelet Count 186 K/uL (130-400); RDW Standard Deviation 42.5 fL (36.4-46.3); Red Blood Count 4.34 M/uL (4.7-6.1); White Blood Count 6.68 K/uL (4.8-10.8)
[2022-03-13 07:30] LABS: Potassium 3.8 mmol/L (3.5-5.1)
[2022-03-13 07:31] LABS: BUN Creatinine Ratio 20.2 (10-20); Chol HDL Ratio 2.7 (0-5); Creatinine Clr Calc Pharmacy 77.4 ml/min; Est GFR (African American) 95.2 ml/min; Est GFR (Non-African American) 82.1 ml/min
[2022-03-13] MEDS: CITALOPRAM 20 MG TAB PO SCH (07:59)
[2022-03-13] MEDS: CHOLECALCIFEROL 1,000 UNITS 25 MCG TAB PO SCH (07:59)
[2022-03-13] MEDS: PANTOprazole 40 MG TAB PO SCH (07:59)
[2022-03-13] MEDS: INSULIN ASPART PER UNIT SC SCH ×4 (08:20→21:42)
[2022-03-13 08:58] LABS: Estimated Average Glucose 194 mg/dl; Hemoglobin A1C 8.4 % (4.5-5.6)
[2022-03-13] MEDS ORDERED: ENALAPRIL MALEATE 10 MG TAB PO SCH (09:00)
--- NOTE | 2022-03-13 09:46 | Critical Care Progress Note ---
Date of Service March 13, 2022 Assessment & Plan (1) Stroke-like symptoms: Plan: Reason Critically Ill: 81 yo male with PMHx of DM2, mild nonproliferative diabetic retinopathy, HLD, thyroid nodule, interstitial pulmonary disease, paroxysmal atrial tachycardia, HTN, history of left vertebral artery occlusion, history of sinus bradycardia, diverticulosis of colon, history of gallstones, BPH, depression, history of CVA presented to the ED with transient expressive aphasia. Admitted for stroke workup and was improving until this morning when he had another episode. Now s/p TNKase administration. Neuro: CAM ICU: Negative Sedation: None Analgesia: Tylenol Stroke like symptoms this morning, now resolved. CT showed no acute process. Decision was made to administer TNKase since in window. Continue holding Plavix. Repeat CT 24 hours s/p TNKase administration. MRI w/wo contrast without acute findings. Aspiration precautions, q4h neuro checks Repeat CT head today at 1:00. Appreciate neurology input. Cardiac: BP stable Hold aspirin, Plavix Continue statin Continue home DESMOND-i, tamsulosin Echo 03/12/2022 showed PFO. LVEF 55 to 60 percent. No thrombus seen. Respiratory: Saturating well on room air GI: Full liquid diet, advance as tolerated Continue Protonix RENAL/LYTES: Replace lytes as needed. : Wing in place, red-tinged urine likely secondary to recent TNKase administration ENDO: Strict glucose control per protocol HEME: Stable H&H ID: No concerns for infection at this point LINES/IV ACCESS: PIVs intact. DVT PROPHYLAXIS: SCDs Downgrade out of ICU if CT head is negative for bleed. (2) TIA (transient ischemic attack): (3) HLD (hyperlipidemia): (4) HTN (hypertension): (5) Diabetes: (6) Thrombosis of left vertebral artery: Admission and Anticipated Discharge Date Admission Date: March 11, 2022 Subjective No issues with expressive or receptive aphasia this morning. Tolerating his diet well. Denies headache or pain. No overnight events. Review of Systems Review of Systems: All systems reviewed & are unremarkable except as noted in HPI & below Physical Exam Physical Exam: Constitutional: Patient appears to be of their stated age. Patient is in no apparent distress. Patient is well-developed. Eyes: Pupils are equal round and reactive to light. Conjunctivae are normal. Anicteric sclera. Ears nose, mouth and throat: Normal posterior oropharynx. Uvula is midline. Neck: Trachea is midline. Visual inspection is normal. Respiratory: Clear to auscultation bilaterally. No use of accessory muscles. No significant clubbing noted. Cardiovascular: Regular rate and rhythm. No murmurs. No edema. Gastrointestinal: Normal bowel sounds, soft, nontender and nondistended. No hepatosplenomegaly noted. Musculoskeletal: No cyanosis. Patient is able to move all extremities. Strength is 5 out of 5 in the upper and lower extremities. Skin: No rashes, warm dry and intact. Neurologic: No obvious focal neurological deficits seen. Psychiatric: Alert and oriented x3 with a euthymic affect. Results & Data Results & Data ([facility]) Vital Signs (Past 12 Hours) Vital Signs Temp Pulse Resp BP Pulse Ox 03/13/22 06:45 55 L 20 102/53 L 96 03/13/22 05:45 57 L 20 122/74 95 03/13/22 04:45 36.9 C 57 L 16 123/70 92 03/13/22 03:45 53 L 14 110/44 L 96 03/13/22 02:45 67 16 94/47 L 95 03/13/22 01:45 67 14 111/58 L 92 03/13/22 00:45 36.7 C 69 16 126/68 94 03/12/22 23:45 74 16 124/65 95 03/12/22 21:45 70 20 121/63 94 Coding Level of Care Code 48871 Subseq Hosp Care Lvl 2 Diagnoses Stroke-like symptoms R29.90 TIA (transient ischemic attack) G45.9 HLD (hyperlipidemia) E78.5 HTN (hypertension) I10 Diabetes E11.9 Thrombosis of left vertebral artery I65.02
--- NOTE | 2022-03-13 11:27 | Progress Notes ---
DATE OF NOTE: 03/11/2022. SUBJECTIVE: I am seeing the patient in followup of multiple episodes of aphasia. He received TPA ye sterday. He feels much improved, although reports some mild residual language dysfunction. His MRI of the brain in spite of hours of neurologic symptoms showed no acute abnormality. An EEG has been o rdered and is pending. OBJECTIVE: The patient is awake and alert. Naming, repetition and 3-step commands are normal. He i s oriented. Blood pressure 102/53, pulse 55, normal extraocular motility, visual wiseman, facial symme try. Speech is nondysarthric. There is no drift and lower extremity strength is symmetric. IMPRESSION AND PLAN: Transient ischemic attack versus partial complex seizure. Await results of EEG . If EEG is normal, we will operate on the assumption that this was transient ischemia, but would co nsider an ambulatory EEG as an outpatient given that he has had multiple episodes of this type previo usly without evidence of infarct. Once he is past 24 hours of TPA, can add aspirin and resume Plavix with a goal of continuing both as this patient broke through Plavix. I would recommend the patient have cardiac monitoring as an outpatient with a Zio patch. Contemplate treatment for diabetes given elevated hemoglobin A1c. The patient will need to see us in followup post discharge. Job ID: [id number]
--- NOTE | 2022-03-13 12:12 | Electroencephalogram ---
EEG Procedure Note Date of Service March 13, 2022 Start / End Times Start Time: 0850 End Time: 09 Referring Physician Princess King MD History periodic aphasia with normal brain imaging question focal seizures left hemispere Home Medication List Medication Instructions Recorded Confirmed Type benazepril 10 mg tablet 10 mg PO DAILY 12/30/18 03/11/22 History citalopram 20 mg tablet 20 mg PO DAILY 12/30/18 03/11/22 History metformin 500 mg tablet 500 mg PO BID 12/30/18 03/11/22 History tamsulosin 0.4 mg capsule 0.8 mg PO QPM 12/30/18 03/11/22 History atorvastatin 40 mg tablet 40 mg PO HS #30 tab 01/01/19 03/11/22 Rx cholecalciferol (vitamin D3) 25 50 mcg PO DAILY 09/22/21 03/11/22 History mcg (1,000 unit) tablet pantoprazole 40 mg tablet,delayed 40 mg PO QAM #30 tab 09/24/21 03/11/22 Rx release clopidogrel 75 mg tablet 75 mg PO DAILY 03/11/22 03/11/22 History glucosam 750 mg-chondroi 100 2 tab PO DAILY 03/11/22 03/11/22 History mg-hyalur 1.65 mg-CF borate 108 mg tablet ([facility]) Inpatient Medication List Atorvastatin Calcium (Atorvastatin 40 Mg Tab) 40 mg PO HS [facility] Stop: 04/10/22 21:56 Last Admin: 03/12/22 20:27 Dose: 40 mg Documented by: [id number] Admin: 03/11/22 22:53 Dose: 40 mg Documented by: [id number] Citalopram Hydrobromide (Citalopram 20 Mg Tab) 20 mg PO DAILY [facility] Stop: 04/11/22 08:59 Last Admin: 03/13/22 07:59 Dose: 20 mg Documented by: [id number] Admin: 03/12/22 08:33 Dose: 20 mg Documented by: [id number] Insulin Aspart (Insulin Aspart Per Unit) 0 units [facility] Stop: 04/10/22 21:56 Last Admin: 03/13/22 08:20 Dose: Not Given Documented by: [id number] Admin: 03/12/22 20:26 Dose: Not Given Documented by: [id number] Cosigned by: [id number] Admin: 03/12/22 16:42 Dose: Not Given Documented by: [id number] Admin: 03/12/22 12:09 Dose: Not Given Documented by: [id number] Admin: 03/12/22 08:35 Dose: 3 units Documented by: [id number] Cosigned by: [id number] Admin: 03/11/22 22:42 Dose: Not Given Documented by: [id number] Cosigned by: [id number] Pantoprazole Sodium (Pantoprazole 40 Mg Tab) 40 mg PO QAM MATT Stop: 04/11/22 08:59 Last Admin: 03/13/22 07:59 Dose: 40 mg Documented by: [id number] Admin: 03/12/22 08:33 Dose: 40 mg Documented by: [id number] Tamsulosin HCl (Tamsulosin Hcl 0.4 Mg Cap) 0.8 mg PO QPM MATT Stop: 04/10/22 21:56 Last Admin: 03/12/22 20:27 Dose: 0.8 mg Documented by: [id number] Admin: 03/11/22 22:53 Dose: 0.8 mg Documented by: [id number] Vitamin D (Cholecalciferol 1,000 Units 25 Mcg Tab) 2,000 units PO DAILY MATT Stop: 04/11/22 08:59 Last Admin: 03/13/22 07:59 Dose: 2,000 units Documented by: [id number] Admin: 03/12/22 08:33 Dose: 2,000 units Documented by: [id number] Discontinued Medications Aspirin (Aspirin Chew 324 Mg) 324 mg PO NOW STA Stop: 03/11/22 19:34 Last Admin: 03/11/22 19:38 Dose: 324 mg Documented by: [id number] Clopidogrel Bisulfate (Clopidogrel Bisulfate 75 Mg Tab) 75 mg PO DAILY MATT Stop: 04/11/22 08:59 Last Admin: 03/12/22 08:33 Dose: 75 mg Documented by: [id number] Enalapril Maleate (Enalapril Maleate 10 Mg Tab) 10 mg PO DAILY MATT Stop: 04/11/22 08:59 Last Admin: 03/12/22 08:34 Dose: 10 mg Documented by: [id number] Gadobutrol (Gadobutrol 65ml Vial) 9 ml IV ONCE ONE Stop: 03/12/22 22:49 Last Admin: 03/12/22 22:49 Dose: 9 ml Documented by: [id number] Magnesium Sulfate/Dextrose (Magnesium Sulfate / D5w) 1 gm in 100 mls @ 100 mls/hr IV NOW STA Stop: 03/11/22 19:24 Last Infusion: 03/11/22 20:51 Dose: 0 mls/hr Documented by: [id number] Admin: 03/11/22 19:27 Dose: 100 mls/hr Documented by: [id number] Sodium Chloride (Nss 1000ml) 1,000 mls @ 75 mls/hr IV .[id number] MATT Stop: 03/12/22 11:16 Last Infusion: 03/12/22 12:30 Dose: 0 mls/hr Documented by: [id number] Admin: 03/11/22 23:06 Dose: 75 mls/hr Documented by: [id number] Tenecteplase 23 mg/ Syringe 4.6 mls @ 55.2 mls/min IV NOW ONE; Protocol Stop: 03/12/22 12:39 Last Admin: 03/12/22 12:30 Dose: 55.2 mls/min Documented by: [id number] Cosigned by: [id number] Ioversol (Optiray 320 125ml) 119 ml IV ONCE ONE Stop: 03/11/22 19:13 Last Admin: 03/11/22 19:12 Dose: 119 ml Documented by: [id number] Sodium Chloride (Sodium Chloride 0.9% 10ml Flush) 20 ml IV NOW STA Stop: 03/12/22 12:29 Last Admin: 03/12/22 14:07 Dose: 20 ml Documented by: [id number] Description This is a 21 electrode EEG with a single channel dedicated to limited EKG. The electrodes were placed in accordance with the International 10-20 system. This EEG was done as a bedside recording with simultaneous video analysis of patient movement and behavior and with photic stimulation drowsiness and light sleep not recorded. Wakefulness there is a normal symmetrical posteriorly maximal baclground rhythm in the alpha range, a mid frequence modest voltage centrally predominant and symmetrical theta rhythn and a bifrontal low voltage and symmetrical beta pattern Photic stimulation provokes a minimal driving response posteriorly and without a photoparoxysmal or photomhyogenic component No potentially epileptogenic discharges are seen Interpretation Normal eeg during wakefulness Clinical Correlation Normal eeg with no evidence for focal or generalized slowing and no evidence for potentially epileptogenic activity but would not exclude intermittent low frequency focal events and a 72 hour outpatient recording may be of more value dignostically depending on the level of suspicion clinically for focal seizure activity Dhaval Varner MD
--- NOTE | 2022-03-13 13:44 | CT Scan Report ---
HEAD CT NONCONTRAST CT DOSE: 537.48 mGy.cm HISTORY: Aphasia. Stroke. s/p TNKase TECHNIQUE: Multiaxial CT images of the head were performed without the use of intravenous contrast. A utomated exposure control was utilized for this study. A dose lowering technique was utilized adheri ng to the principles of ALARA. Comparison: Head CT 03/12/2022. Findings: Small right mastoid effusion, unchanged. The calvarium and skull base are intact. There is no mass, hematoma, midline shift, acute infarct. White matter hypodensity is nonspecific but suggesti ve of microvascular ischemic change. The ventricles and sulci demonstrate mild age-related involution al changes. Impression: No significant change compared to the prior study. No acute intracranial abnormality. ACT 112: Negative or not required by law. Electronically signed by: Abhilash Cruz M.D. 03/13/2022 1:42 PM
--- NOTE | 2022-03-13 15:24 | Hospitalist Progress Note ---
Date of Service March 13, 2022 Assessment & Plan (1) Acute CVA (cerebrovascular accident): Plan: ASSESSMENT AND PLAN: This is an 81-year-old male who presents with stroke-like symptoms. 1.possible TIA, s/p TNKase vs. Partial Complex Seizure History of CVA, TIA- on Plavix and Lipitor CTA head and neck: 1. No significant stenosis, occlusion, or aneurysm within the [place]. 2. No significant stenosis, occlusion, or dissection identified within the carot id or right vertebral arteries. 3. 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 This remains unchanged. 4. A 2 cm right thyroid nodule again noted. at around 1115am, patient noted to have expressive and receptive aphasia by RN, no other deficits noted stroke alert called seen at bedside immediately, alert, not oriented, (+) dysarthria, has difficulty following simple commands CT head stat performed: no acute process discussed case with Nupur Ritter neurologist Telestroke protocol performed she recommended TPA administration tried to contact patient's multiple times- per friend, she is receiving chemo tried to go to [facility] and call Tanya Kurtz's Ramos- unable to contact tried to call patient's son- no answer- voicemail left discussed with Pharmacist Luanne, we have decided to proceed with TKA administration in the best interest of the patient post TKA protocol ordered, transferred to ICU MRI brain w/o contrast: 1. No acute intracranial abnormality. 2. Loss of the left vertebral artery flow-void at the skull base is unchanged from previous. This was better assessed on today's CT angiogram. 3. Bilateral mastoid effusions. repeat CT head: no acute process 03/13 Neuro symptoms resolved resume Plavix and add Aspirin EEG: Normal eeg with no evidence for focal or generalized slowing and no evidence for potentially epileptogenic activity but would not exclude intermittent low frequency focal events and a 72 hour outpatient recording may be of more value dignostically depending on the level of suspicion clinically for focal seizure activity 2. Diabetes: Hold his metformin. Placed on insulin sliding scale. Follow the blood sugars. 3. History of depression: Continue citalopram. 4. History of hypertension: hold Benazepril 5. History of benign prostatic hypertrophy: Continue Flomax. 6. History of hyperlipidemia: Continue Lipitor 7. History of gastroesophageal reflux disease: Continue Protonix. 8. Deep venous thrombosis prophylaxis: Sequential compression devices for now. plan of care discussed with patient and patient's brother Aakash in detail and at length all questions answered they are understanding, agreeable, comfortable with the plan of care Admission and Anticipated Discharge Date Admission Date: March 11, 2022 Subjective ff up for TIA, etc seen resting in bed, comfortable brother Aakash at bedside visiting oriented x3, answers all questions appropriately states he feels fine overall no headache, dizziness, focal neuro deficits no chest pain, dyspnea, palpitations, dizziness no other symptoms Review of Systems Review of Systems: all noted and negative except for above Physical Exam Physical Exam: General- oriented x 3, not in distress, speaks in sentences with no effort or accessory muscle use Eyes- anicteric Neck- no JVD Lungs- clear breath sounds bilaterally, no rales/wheezes Heart- normal rate, regular rhythm; no murmurs Abdomen- normal bowel sounds, nondistended, soft, nontender Extremities- no pretibial edema, no calf tenderness Neuro- alert, oriented x 3; no gross focal neurologic deficits Skin- warm & dry Results & Data Results & Data ([facility]) Vital Signs (Past 12 Hours) Vital Signs Temp Pulse Pulse Resp BP BP Pulse Ox 03/13/22 14:00 70 10 L 137/80 95 03/13/22 13:45 71 16 143/98 H 96 03/13/22 13:05 03/13/22 13:00 62 16 123/72 94 03/13/22 12:45 36.5 C 70 17 137/80 95 03/13/22 11:45 36.6 C 68 12 142/80 H 96 03/13/22 10:45 36.7 C 56 L 18 120/58 L 96 03/13/22 09:45 36.7 C 63 16 138/86 95 03/13/22 08:45 36.5 C 64 17 130/79 95 03/13/22 07:45 36.7 C 76 24 114/81 96 03/13/22 06:45 55 L 20 102/53 L 96 03/13/22 05:45 57 L 20 122/74 95 03/13/22 04:45 36.9 C 57 L 16 123/70 92 03/13/22 03:45 53 L 14 110/44 L 96 Pulse Ox 03/13/22 14:00 03/13/22 13:45 03/13/22 13:05 95 03/13/22 13:00 03/13/22 12:45 03/13/22 11:45 03/13/22 10:45 03/13/22 09:45 03/13/22 08:45 03/13/22 07:45 03/13/22 06:45 03/13/22 05:45 03/13/22 04:45 03/13/22 03:45 all noted and reviewed including below
[2022-03-13] MEDS: ASPIRIN 81 MG ECTAB PO SCH (17:01)
[2022-03-13] MEDS: CLOPIDOGREL BISULFATE 75 MG TAB PO SCH (17:01)
[2022-03-13] MEDS: TAMSULOSIN HCL 0.4 MG CAP PO SCH (21:38)
[2022-03-13] MEDS: ATORVASTATIN 40 MG TAB PO SCH (21:38)
[2022-03-14] MEDS: PANTOprazole 40 MG TAB PO SCH (08:05)
[2022-03-14] MEDS: CITALOPRAM 20 MG TAB PO SCH (08:05)
[2022-03-14] MEDS: CHOLECALCIFEROL 1,000 UNITS 25 MCG TAB PO SCH (08:05)
[2022-03-14] MEDS: CLOPIDOGREL BISULFATE 75 MG TAB PO SCH (08:05)
[2022-03-14] MEDS: ASPIRIN 81 MG ECTAB PO SCH (08:09)
[2022-03-14] MEDS: INSULIN ASPART PER UNIT SC SCH ×2 (08:15→12:26)
[2022-03-14 08:19] LABS: Basophils # (auto) 0.01 K/uL (0-0.2); Basophils % (auto) 0.2 %; Eosinophils # (auto) 0.08 K/uL (0-0.5); Eosinophils % (auto) 1.5 %; Hematocrit (blood only) 38.5 % (42-52); Hemoglobin 13.4 g/dL (14.0-18.0); Immature Granulocytes # (auto) 0.02 K/uL (0.00-0.02); Immature Granulocytes % (auto) 0.4 %; Lymphocytes # (auto) 1.51 K/uL (1.2-3.4); Lymphocytes % (auto) 27.8 %; Mean Corpuscular Hemoglobin 31.5 pg (25-34); Mean Corpuscular Hgb Conc 34.8 g/dL (32-36); Mean Corpuscular Volume 90.6 fL (80-100); Mean Platelet Volume 9.9 fL (7.4-10.4); Monocytes # (auto) 0.66 K/uL (0.11-0.59); Monocytes % (auto) 12.2 %; Neutrophils # (auto) 3.15 K/uL (1.4-6.5); Neutrophils % (auto) 57.9 %; Platelet Count 187 K/uL (130-400); Red Blood Count 4.25 M/uL (4.7-6.1); White Blood Count 5.43 K/uL (4.8-10.8)
[2022-03-14 08:43] LABS: BUN Creatinine Ratio 16.2 (10-20); Calcium 9.4 mg/dl (8.5-10.1); Creatinine Clr Calc Pharmacy 65.7 ml/min; Est GFR (African American) 82.4 ml/min; Est GFR (Non-African American) 71.1 ml/min; Potassium 4.2 mmol/L (3.5-5.1)
[2022-03-14] MEDS ORDERED: ENOXAPARIN INJ 40 MG/0.4 ML SYR SQ SCH (09:00)
--- NOTE | 2022-03-14 10:38 | Hospitalist Progress Note ---
Date of Service March 14, 2022 Assessment & Plan (1) Acute CVA (cerebrovascular accident): Plan: ASSESSMENT AND PLAN: This is an 81-year-old male who presents with stroke-like symptoms. 1.possible TIA, s/p TNKase vs. Partial Complex Seizure History of CVA, TIA- on Plavix and Lipitor CTA head and neck: 1. No significant stenosis, occlusion, or aneurysm within the [place]. 2. No significant stenosis, occlusion, or dissection identified within the carot id or right vertebral arteries. 3. 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 This remains unchanged. 4. A 2 cm right thyroid nodule again noted. at around 1115am, patient noted to have expressive and receptive aphasia by RN, no other deficits noted stroke alert called seen at bedside immediately, alert, not oriented, (+) dysarthria, has difficulty following simple commands CT head stat performed: no acute process discussed case with Nupur Ritter neurologist Telestroke protocol performed she recommended TPA administration tried to contact patient's multiple times- per friend, she is receiving chemo tried to go to [facility] and call Tanya Kurtz's Ramos- unable to contact tried to call patient's son- no answer- voicemail left discussed with Pharmacist Luanne, we have decided to proceed with TKA administration in the best interest of the patient post TKA protocol ordered, transferred to ICU MRI brain w/o contrast: 1. No acute intracranial abnormality. 2. Loss of the left vertebral artery flow-void at the skull base is unchanged from previous. This was better assessed on today's CT angiogram. 3. Bilateral mastoid effusions. repeat CT head: no acute process 03/14 Neuro symptoms resolved resume Plavix and added Aspirin EEG: Normal eeg with no evidence for focal or generalized slowing and no evidence for potentially epileptogenic activity but would not exclude intermittent low frequency focal events and a 72 hour outpatient recording may be of more value dignostically depending on the level of suspicion clinically for focal seizure activity PT/OT eval: return home will need outpatient cardiac monitoring, and 72 hr EEG ff up with Neurologist in 2 weeks 2. Diabetes: Hold his metformin. Placed on insulin sliding scale. Follow the blood sugars. 3. History of depression: Continue citalopram. 4. History of hypertension: BP well controlled hold Benazepril for now, patient may not need this medication ff up with PCP this week 5. History of benign prostatic hypertrophy: Continue Flomax. 6. History of hyperlipidemia: Continue Lipitor 7. History of gastroesophageal reflux disease: Continue Protonix. 8. Deep venous thrombosis prophylaxis: Sequential compression devices for now. plan of care discussed with patient and patient's brother Aakash in detail and at length all questions answered they are understanding, agreeable, comfortable with the plan of care Admission and Anticipated Discharge Date Admission Date: March 11, 2022 Subjective ff up for possible TIA, etc seen resting in bed, comfortable sitting up seen walking in the room prior states he feels fine overall no recurrence of aphasia speech back to baseline no new focal neuro deficits no chest pain, dyspnea, palpitations, dizziness no other symptoms states he is ready and would like to be discharged today Review of Systems Review of Systems: all noted and negative except for above Physical Exam Physical Exam: General- oriented x 3, not in distress, speaks in sentences with no effort or accessory muscle use Eyes- anicteric Neck- no JVD Lungs- clear BS bilaterally, no rales/wheezes Heart- normal rate, regular rhythm; no murmurs Abdomen- normal bowel sounds, nondistended, soft, nontender Extremities- no pretibial edema, no calf tenderness Neuro- alert, oriented x 3; no dysarthria, aphasia, no gross focal neurologic deficits Skin- warm & dry Results & Data Results & Data ([facility]) Vital Signs (Past 12 Hours) Vital Signs Temp Pulse Pulse Resp BP Pulse Ox 03/14/22 08:15 36.5 C 67 20 116/68 93 03/14/22 06:12 60 03/14/22 03:00 36.5 C 54 L 20 125/67 98 03/14/22 00:00 64 03/13/22 23:00 36.7 C 69 20 130/76 98 all noted and reviewed including below
[2022-03-14] MEDS ORDERED: STROKE PATIENT DISCHARGE STA (10:51)
--- NOTE | 2022-03-14 10:57 | Discharge Summary ---
Date of Service March 14, 2022 Admission HPI Per Admitting Provider HISTORY OF PRESENT ILLNESS: This is an 81-year-old male with past medical history significant for type 2 diabetes, mild nonproliferative diabetic retinopathy, hyperlipidemia, thyroid nodule, interstitial pulmonary disease, paroxysmal atrial tachycardia, primary hypertension, history of left vertebral artery occlusion, history of sinus bradycardia, diverticulosis of colon, history of gallstones, BPH, depression, history of CVA, presents with transient expressive aphasia. The patient states that he had therapy for his hip and knee pains in the morning, did okay, then he went to sleep at 1:30pm and around 2:30pm he woke up and at that time, he felt difficulty speaking. He called his brother who lives only 150 yards away. When his brother came, he was sitting on the lawnmower and he was having very slurred speech, mouth open, trying to speak, they could not understand, they called EMT and brought him here. The episode lasted about 45 minutes to one hour. Currently, he seems to be back to close to baseline, speaking fine, alert and oriented, brother is in the room. Had some mild headache, that is improved. At noon time, he also had some chest discomfort, 2/10 in severity, that is resolved now. Denies any shortness of breath. No cough, no fever, no chills. Last 2-3 days, he has mild difficulty swallowing a couple of times. No blurred visions, no earache, no runny nose, no sore throat. Somewhat hard of hearing. No nausea, no abdominal pain. Normal bowel and bladder movements. Today, when this was happening, his balance was not that great. He sleeps okay. Currently, resting comfortably and hemodynamically stable. The patient has history of TIAs a couple of times in the past. Currently he is on Plavix and statin. Admission Exam Per Admitting Provider GENERAL: The patient is obese, not in acute distress. VITAL SIGNS: Temperature 36.6, pulse 65, respiratory rate 24, blood pressure 134/75, oxygen 97% on room air. HEENT: Pupils equal, round and reactive to light. Oral mucosa moist. LUNGS: No JVD or neck masses. CARDIOVASCULAR: S1 and S2 heard. Regular rate and rhythm. No murmur, no gallop. RESPIRATORY SYSTEM: Normal AP diameter. No accessory muscle use. No wheezing, no crackles. ABDOMEN: Soft. Bowel sounds are present, nontender, no distention. CENTRAL NERVOUS SYSTEM: Alert and oriented. Speech is clear. No facial droop. Power 5/5 in all extremities. Sensation is intact. Position sense intact. Coordination of movement normal. No pronator drift. EXTREMITIES: No edema, no erythema. Principal Diagnosis EPISODES OF APHASIA, POSSIBLE TIA VS. PARTIAL COMPLEX SEIZURE Discharge Exam General- oriented x 3, not in distress, speaks in sentences with no effort or accessory muscle use Eyes- anicteric Neck- no JVD Lungs- clear BS bilaterally, no rales/wheezes Heart- normal rate, regular rhythm; no murmurs Abdomen- normal bowel sounds, nondistended, soft, nontender Extremities- no pretibial edema, no calf tenderness Neuro- alert, oriented x 3; no dysarthria, aphasia, no gross focal neurologic deficits Skin- warm & dry Discharge Data Allergies Allergy/AdvReac Type Severity Reaction Status Date / Time bee venom protein (honey bee) Allergy Unknown Unverified 03/11/22 20:33 Consultations 03/11/22 19:39 ED Decision to Admit Stat 03/11/22 21:57 Consult Neurology Routine 03/12/22 12:30 Consult Neurology Routine 03/12/22 13:21 Consult Senior Account Manager Routine Ordered Studies 03/11/22 17:08 CT angio head w con Stat CT angio neck with con Stat COMPARISON: Head and neck CTA 12/30/2018. FINDINGS: There is no mass, hematoma, midline shift, or acute infarct. Visualized intracranial internal carotid arteries, distal right vertebral artery, and basilar artery are widely patent. There is no significant stenosis, occlusion, or aneurysm seen within the bilateral ACAs, MCAs, or newspaper carriers supervisor. 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 This remains unchanged. The aortic arch and proximal great vessels are widely patent. There is no significant stenosis, occlusion, or dissection identified within the bilateral common carotid, internal carotid, or right vertebral arteries. Hypoplastic/diminutive left vertebral artery with chronic occlusion at the level of C1. This remains unchanged. There is a 2 cm right thyroid nodule again noted. Right mastoid effusion is slightly improved. IMPRESSION: 1. No significant stenosis, occlusion, or aneurysm within the [place]. 2. No significant stenosis, occlusion, or dissection identified within the ca rotid or right vertebral arteries. 3. 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 This remains unchanged. 4. A 2 cm right thyroid nodule again noted. ACT 112: Negative or not required by law. CT head/brain wo con Stat Findings: Slight improvement in the right mastoid effusion. The paranasal sinuses and left mastoid air cells are clear. The calvarium and skull base are intact. There is no mass, hematoma, midline shift, acute infarct. White matter hypodensity is nonspecific but suggestive of microvascular ischemic change. The ventricles and sulci demonstrate mild age-related involutional changes. Impression: No acute intracranial abnormality. ACT 112: Negative or not required by law. 03/12/22 17:05 MR brain wo/w con Routine FINDINGS: Brain parenchyma: There is age-related involutional change noting advanced confluent subcortical and periventricular microangiopathic disease. There is no hemorrhage or mass effect. There is no restricted diffusion to suggest acute ischemia. No enhancing mass lesion is identified on the postcontrast images. A tiny chronic lacunar infarct is noted in the right cerebellar hemisphere. Kurtz- white matter differentiation is preserved. No extra-axial fluid collection is seen. The cerebellar tonsils are normal in configuration. Ventricles, sulci, and cisterns: Prominent secondary to involutional change. Pituitary and sella: Unremarkable. Intracranial vasculature: Loss of the left vertebral artery flow void at the skull base is unchanged. The remaining flow-voids the skull base are patent. Orbits: The bony orbits are grossly intact. Orbital contents are normal in appearance noting bilateral ocular lens implants. Sinuses and mastoids: There are bilateral mastoid effusions, right larger than left. The paranasal sinuses are clear. Calvarium: Unremarkable. Cervical cord: Partially visualized cervical spinal cord is normal in morphology and signal intensity. IMPRESSION: 1. No acute intracranial abnormality. 2. Loss of the left vertebral artery flow-void at the skull base is unchanged from previous. This was better assessed on today's CT angiogram. 3. Bilateral mastoid effusions. ACT 112: Negative or not required by law. Hospital Course (1) Acute CVA (cerebrovascular accident): ASSESSMENT AND PLAN: This is an 81-year-old male who presents with stroke-like symptoms. 1.Episode of Aphasia possible TIA, s/p TNKase vs. Partial Complex Seizure History of CVA, TIA- on Plavix and Lipitor Admitted for episode of aphasia at home which resolved upon arrival to the ER CT head: No acute process CTA head and neck: 1. No significant stenosis, occlusion, or aneurysm within the [place]. 2. No significant stenosis, occlusion, or dissection identified within the carotid or right vertebral arteries. 3. 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 This remains unchanged. 4. A 2 cm right thyroid nodule again noted. On hospital day #2 patient again an episode of aphasia, expressive and receptive Lasted for at least 1 hour Stroke alert called, evaluated by neurologist who recommended administration of TNKase Aphasia resolved a few hours after administration at around 1115am, patient noted to have expressive and receptive aphasia by RN, no other deficits noted stroke alert called seen at bedside immediately, alert, not oriented, (+) dysarthria, has difficulty following simple commands CT head stat performed: no acute process discussed case with Dr. Aguirre, [place] neurologist Telestroke protocol performed she recommended TPA administration family cannot be reached for consent discussed with Pharmacist Luanne, we have decided to proceed with TKA administration in the best interest of the patient post TKA protocol ordered, transferred to ICU MRI brain w/o contrast: 1. No acute intracranial abnormality. 2. Loss of the left vertebral artery flow-void at the skull base is unchanged from previous. This was better assessed on today's CT angiogram. 3. Bilateral mastoid effusions. repeat CT head: no acute process 03/14 Neuro symptoms resolved resumed usual Plavix and added Aspirin EEG: Normal eeg with no evidence for focal or generalized slowing and no evidence for potentially epileptogenic activity but would not exclude intermittent low frequency focal events and a 72 hour outpatient recording may be of more value dignostically depending on the level of suspicion clinically for focal seizure activity PT/OT eval: return home 03/15 alert, oriented x 3, neuro symptoms resolved patient states she is back to baseline ambulating with no problems PT/OT recommending return home d/c on: Plavix + Aspirin will need outpatient cardiac monitoring, and 72 hr EEG ff up with Neurologist in 2 weeks 2. Diabetes:resume usual medications close ff up with PCP 3. History of depression: Continue citalopram. 4. History of hypertension: BP well controlled hold Benazepril for now, to prevent hypotension and TIAs, patient may not need this medication ff up with PCP this week 5. History of benign prostatic hypertrophy: Continue Flomax. 6. History of hyperlipidemia: Continue Lipitor 7. History of gastroesophageal reflux disease: Continue Protonix. plan of care discussed with patient and patient's brother Aakash in detail and at length all questions answered they are understanding, agreeable, comfortable with the plan of care Total Time Total Time Spent Total Time Spent (In Minutes): >30 minutes Discharge Plan Discharge Items Patient Disposition: Home - Home Health Services Reason For Visit: NEURO SYMPTOMS Discharge Diagnosis: POSSIBLE TRANSIENT ISCHEMIC ATTACK VS. SEIZURE Activity: Resume your previous activity Activity Comment: NO HEAVY EXERTION, INCREASE ACTIVITY GRADUALLY TOLERATED Lifting: Wait until after follow-up appointment Exercise/Sports: Wait until after follow-up appointment Driving/Machine Use: NO DRIVING UNTIL RE-EVALUATED AND ALLOWED BY NEUROLOGIST Non-emergency contact: Primary Care Provider Call non-emergency contact if: you have any medication questions, your symptoms worsen and you have a fever Follow-up/Referrals: David Brush MD [Primary Care Provider] - Princess King MD [Physician] - Diet: Carb Consistent or DM2 and Heart Healthy Addtl Attending Provider Instructions: NO DRIVING, OPERATING MACHINERIES, SWIMMING, BATHING IN THE TUB UNTIL ALLOWED BY THE NEUROLOGIST (DR. KING) ON FOLLOW UP VISIT. PLEASE REFER TO YOUR NEW MEDICATION LIST AND FOLLOW INSTRUCTIONS CAREFULLY. YOUR NEW MEDICATIONS INCLUDE: ASPIRIN- for prevention of transient ischemic attack/mini stroke Discontinue Benazepril. FOLLOW UP WITH PRIMARY CARE PHYSICIAN in 1 week. FOLLOW UP WITH [facility] NEUROLOGIST DR. KING IN 2 WEEKS. You can reduce your chances of stroke by working with your medical provider to adopt a healthy lifestyle. Some specific ways to lower your chance of stroke are: If you are a smoker, now is the time to stop smoking cigarettes If you are diabetic, improve the control of your blood sugars Avoid excessive amounts of alcohol Control high blood pressure Lose weight if you are overweight Be sure to lead an active lifestyle Eat a healthy diet low in salt, cholesterol and fat You should know about other risk factors for stroke that you are unable to control. These include: Age 55 years or older Male gender Certain racial groups: , or / Family History of Stroke, Mini stroke or Heart Attack Sickle Cell Disease Follow Up: It is important for you to keep your follow up appointments with your medical provider. Who to Call and When: Medical Emergencies: Call 911 immediately if you experience any of the following warning signs and symptoms of Stroke: Sudden numbness or weakness of the face, arm or leg, especially on one side of the body Sudden confusion, trouble speaking or understanding Sudden trouble seeing in one or both eyes Sudden trouble walking, dizziness, loss of balance or coordination Sudden severe headache with no cause Do not delay calling 911 if you experience any warning signs or symptoms of a stroke. Delay in seeking medical attention may affect what treatments can be given to you. Pending Studies at Discharge: Yes Studies:: OUTPATIENT CARDIAC MONITORING- TO BE ARRANGED BY PRIMARY CARE PHYSICIAN 72 HOUR EEG- TO BE ARRANGED BY THE NEUROLOGIST Stand-Alone Forms: Medications to Prevent Stroke, DIY, Smoking Cessation Medications and DC Order Prescriptions: New aspirin 81 mg Tablet,Delayed Release (Dr/Ec) 81 mg PO QAM 30 Days Qty: 30 RF: 2 Continued metformin 500 mg Tablet 500 mg PO BID RF: 0 citalopram 20 mg Tablet 20 mg PO DAILY RF: 0 tamsulosin 0.4 mg Capsule 0.8 mg PO QPM RF: 0 atorvastatin 40 mg Tablet 40 mg PO HS Qty: 30 RF: 1 cholecalciferol (vitamin D3) 25 mcg (1,000 unit) Tablet 50 mcg PO DAILY RF: 0 pantoprazole 40 mg Tablet,Delayed Release (Dr/Ec) 40 mg PO QAM Qty: 30 RF: 0 clopidogrel 75 mg tablet 75 mg PO DAILY RF: 0 Move Free [employer] 750 mg-100 mg- 1.65 mg-108 mg Tablet 2 tab PO DAILY RF: 0 Discontinued benazepril 10 mg Tablet 10 mg PO DAILY RF: 0 Discharge Orders: Discharge Order (Routine); Ordered 03/14/22 Ordered By: Ritchie Devlin/Other Patient Handouts: Managing Type 2 Diabetes, 5 Steps for Eating Healthier Admission Data Admit Date/Time: 03/11/22 20:20 Attending Provider: Ritchie Felipe Admit Provider: Antonio Mendosa Primary Care Provider: Pilgram,David A. Other Providers: Antonio Mendosa ; Princess King ; Dhaval Varner ; Kana Rowland Other Interventions: Discharge Summary Assessment (RN) Last Done: 03/14/22 11:46
--- NOTE | 2022-03-14 11:02 | Pharmacy Report ---
Pharmacist Stroke Counseling - Date of Service March 14, 2022 - Scope: Pharmacy has been consulted to provide medication discharge counseling for this patient admitted with transient ischemic attack as per the Pharmacist Discharge Counseling for Stroke Patients Protocol. - Medications on Discharge: Home Medications Medication Instructions Recorded Confirmed benazepril 10 mg tablet 10 mg PO DAILY 12/30/18 03/11/22 citalopram 20 mg tablet 20 mg PO DAILY 12/30/18 03/11/22 metformin 500 mg tablet 500 mg PO BID 12/30/18 03/11/22 tamsulosin 0.4 mg capsule 0.8 mg PO QPM 12/30/18 03/11/22 cholecalciferol (vitamin D3) 25 50 mcg PO DAILY 09/22/21 03/11/22 mcg (1,000 unit) tablet clopidogrel 75 mg tablet 75 mg PO DAILY 03/11/22 03/11/22 glucosam 750 mg-chondroi 100 2 tab PO DAILY 03/11/22 03/11/22 mg-hyalur 1.65 mg-CF borate 108 mg tablet ([facility]) New Rx's Medication Instructions Recorded atorvastatin 40 mg tablet 40 mg PO HS #30 tab 01/01/19 pantoprazole 40 mg tablet,delayed 40 mg PO QAM #30 tab 09/24/21 release aspirin 81 mg tablet,delayed 81 mg PO QAM 30 Days #30 tab 03/14/22 release - Action: The above medications, specifically ones for stroke treatment/prophylaxis, have been reviewed in detail with the patient and/or patient branch customer service representative(s) prior to discharge. This includes indication, common adverse reactions, drug interactions, and medication administration. Medication counseling has been employed using the teach-back method to ensure understanding. - Outcome: The patient and/or patient branch customer service representative(s) have demonstrated understanding of the medications. Additional comments: - Patient understanding of addition of aspirin to prior Plavix, as well as discontinuation of benazepril - Patient has taken aspirin previously and tolerated well, aware of increased bleeding risk while on both agents - Patient's to assist patient with medications Thank you for allowing pharmacy to be involved in the care of this patient. Please call [phone] with any additional questions
--- NOTE | 2022-03-14 11:31 | Progress Notes ---
DATE OF NOTE: 03/14/2022 SUBJECTIVE: I am seeing the patient in followup of expressive aphasia. He had 2 episodes, after the second episode was given tPA. In spite of some mild ongoing symptoms, MRI of the brain did not show an acute abnormality. An EEG did not show any evidence of slowing or seizure activity. His diagnost ics are notable for known left vertebral artery occlusion. No significant stenosis or occlusion with in the [place] of [place]. The patient's hemoglobin A1c was 8.4, LDL 33. OBJECTIVE: The patient is awake and alert. Naming repetitions and 3-step commands are normal. Ther e is normal extraocular motility, visual wiseman and facial symmetry. No weakness in the arms or legs , no drift and normal rapid alternating movements. IMPRESSION AND PLAN: Possible transient ischemic attack, status post tPA, seizure remains within the differential given the mild residual difficulty with word finding. We will arrange an ambulatory EE G as an outpatient. The patient should be scheduled to see us in followup. He should also have a 2- week cardiac catheterization technologist. Blood sugar should be better controlled. Job ID: [id number]
== END 2022-03-14 14:08 | disposition home health service (06) | DRG 62 ==
LOC: ED 16:51 → 2S 20:20 → 1E 03-12 12:46 → 2S 03-13 18:11

== ENCOUNTER 2023-10-08 09:20 | Observation (INO) ==
--- OUTSIDE RECORDS SUMMARY | 2023-10-08 09:26 | External Medical Summary | Summary of Care ---
Author Name Unknown Organization [facility] Address [address] [place] [address] Phone [phone] Care Team Providers Care Insurance Associate Name Role Phone David Palm MD Primary Care Provider Reason for Visit * Reason Onset Date Comments Medication Refill 09/29/2023 Encounter Details Date Type Department Care Team (Late st Contact Info) Description 09/29/2023 Refill Family Medicine [address] [phone] David Palm MD [address] [place] [id number] History of CVA (cerebrovascular accident); TIA (transient ischemic attack) Allergies No known active allergiesdocumented as of this encounter (statuses as of 09/29/2023) Medications Medication Sig Dispensed Refills Start Date End Date Status Around Knowledge SYSTEM W/DEVICE KITIndications:DM type 2, goal A1c below 7 Use up to four times a day as directed 1 Kit 0 04/08/2014 Active LANCETS MISCIndications:DM type 2, goal A1c below 7 test once a day 3 Box 1 12/31/2014 Active Aspirin 81 MG Oral Tablet Delayed Release Take 1 Tablet by mouth in the morning. 0 03/15/2022 Active Vitamin D3 50 MCG (2000 UT) Oral Tablet Take 1 Tablet by mouth in the morning. 0 Active Acetaminophen 500 MG Oral Tablet (Tylenol) Take 1 Tablet by mouth every 6 hours as needed. 0 Active Systane 0.4-0.3 % Ophthalmic Solution (Polyethyl Glycol-Propyl Glycol) Instill into eye as needed for Dry eyes. 0 Active Pantoprazole Sodium 40 MG Oral Tablet Delayed Release (Protonix) Take 1 Tablet (40 mg) by mouth in the morning. 90 Tablet 3 09/22/2022 Active Gabapentin 100 MG Oral Capsule (Neurontin) 1 tab three times daily 270 Capsule 3 11/18/2022 Active Fluticasone Propionate 50 MCG/ACT Nasal Suspension (Flonase)Indicatio ns:PND (post-nasal drip) Administer 2 Sprays into each nostril in the morning. 1 Each 0 12/08/2022 Active Benazepril HCl 10 MG Oral Tablet (Lotensin)Indicati ons:Type 2 diabetes mellitus with hemoglobin A1c goal of less than 7.5% (HCC),Hyperlipidem ia with target LDL less than 100,Primary hypertension Take 1 Tablet by mouth in the morning. 90 Tablet 1 03/30/2023 Active Tamsulosin HCl 0.4 MG Oral Capsule (Flomax)Indication s:BPH without obstruction/lower urinary tract symptoms Take 2 Capsules by mouth in the morning. 180 Capsule 1 03/30/2023 Active Magnesium Oxide 400 MG Oral TabletIndications: Hypomagnesemia Take 1 Tablet by mouth daily. 90 Tablet 3 04/08/2023 Active Citalopram Hydrobromide 20 MG Oral Tablet (CeleXA)Indication s:Adjustment disorder with depressed mood Take 1 Tablet by mouth in the morning. 90 Tablet 1 05/17/2023 Active Atorvastatin Calcium 40 MG Oral Tablet (Lipitor)Indicatio ns:Type 2 diabetes mellitus with hemoglobin A1c goal of less than 7.5% (HCC),Dyslipidemia , goal LDL below 70 Take 1 tablet by mouth once daily 90 Tablet 1 07/06/2023 Active metFORMIN HCl ER 500 MG Oral Tablet Extended Release 24 Hour (Glucophage XR)Indications:Typ e 2 diabetes mellitus with hemoglobin A1c goal of less than 7.5% (HCC) TAKE 2 TABLETS BY MOUTH IN THE MORNING AND 2 TABS BEFORE BEDTIME 360 Tablet 1 09/01/2023 Active OneTouch Verio In Vitro Strip (Glucose Blood)Indications: Type 2 diabetes mellitus with hemoglobin A1c goal of less than 7.5% (HCC) Use to test blood sugar up to twice a day as directed. [id number] 200 Strip 3 09/06/2023 Active Clopidogrel Bisulfate 75 MG Oral Tablet (pLAVix)Indication s:History of CVA (cerebrovascular accident),TIA (transient ischemic attack) Take 1 Tablet by mouth in the morning. 90 Tablet 3 09/29/2023 Active Clopidogrel Bisulfate 75 MG Oral Tablet (pLAVix)Indication s:History of CVA (cerebrovascular accident),TIA (transient ischemic attack) Take 1 Tablet (75 mg) by mouth in the morning. 90 Tablet 3 09/22/2022 3 Discontinue d(Refill) Hospital, Clinic, or Other Facility Administered Medication Ordered Dose Route Frequency Start Date End Date Status Albuterol Sulfate (Proventil) (2.5 MG/3ML) 0.083% inhalation solution 2.5 mgIndications:Dyspnea and respiratory abnormalities 2.5 mg NEBULIZER PRN 01/14/2023 01/14/2024 Active Albuterol Sulfate (Proventil) (5 MG/ML) 0.5% *conc* inhalation solution 2.5 mgIndications:Dyspnea and respiratory abnormalities 2.5 mg NEBULIZER PRN 01/14/2023 01/14/2024 Active documented as of this encounter (statuses as of 09/29/2023) Active Problems Problem Noted Date Diagnosed Date Mild basilar atelectasis of both lungs 3 Lung disease, restrictive 02/17/2023 BMI 31.0-31.9,adult 09/29/2022 Overview: 211 Gastro-esophageal reflux disease without esophag itis 06/28/2022 Last Assessment & Plan: Sx controlled with pantoprazole Calculus of gallbladder with out cholecystitis without obstruction 09/22/2021 Overview: Stones seen on CT Current moderate episode of major depressive disorder without prior episode 01/27/2021 Last Assessment & Plan: Stable on citalopram PAT (paroxysmal atrial tachycardia) 07/15/2020 Last Assessment & Plan: Per cardiology note--occurred during stress testing. To continue to monitor. 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 None since last visit. Extensive w/u done by neuro -continue ASA, Plavix, statin. 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 He would like to discuss with pcp prior to deciding follow up/FNA. Primary hypertension 06/05/2012 Overview: Per HTN Protocol #27. 158/82 Last Assessment & Plan: BP at goal on benazepril Type 2 diabetes mellitus wit h hemoglobin A1c goal of less than 7.5% 08/14/2009 Overview: Per Diabetes Taxonomy. ICD-10 update of inactive term Last Assessment & Plan: Current Status: "Stable" for patient / At or near baseline Degree of Condition Awareness: Demonstrates very good awareness of condition, disease course, and prognosis "RED FLAG" Diabetic symptoms: o none Goal HgbA1c o <8 Diabetic Complications o Opthalmologic Medication Regimen o Metformin DM Secondary Prevention o DESMOND Inhibitor / ARB o Moderate-High Intensity Statin o Aspirin BPH without obstruction/lower urinary tract symp toms 09/19/2006 Last Assessment & Plan: Sx controlled with flomax ADVANCE DIRECTIVE INFORMATION 10/25/2005 Overview: No, Advance Directive brochure given to patient at prior appointment. Full dentures 02/25/2005 Diverticulosis of colon 11/09/2004 Disorder of intervertebral disc Last Assessment & Plan: Switched from tramadol to gabapentin 100 mg TID per neuro. Pain well controlled at this point. Dyslipidemia, goal LDL below 70 Overview: ICD-10 update of inactive term Last Assessment & Plan: Continue atorvastatin documented as of this encounter (statuses as of 09/29/2023) Resolved Problems Problem Noted Date Diagnosed Date Resolved Date Adjustment disorder with depressed mood 12/08/2022 12/08/2022 History of transient ischemic attack (TIA) 09/17/2022 09/17/2022 TIA (transient ischemic attack) 08/02/2022 09/17/2022 Interstitial pulmonary disease 11/02/2021 02/17/2023 Last Assessment & Plan: Lungs clear today and denies any wheezing or increased shortness of breath. Does not see pulmonary. Suspect reported cough today from PND and possible recent viral illness (start flonase and call if any persistent or worsening symptoms.) No inhalers or PFTs. Offered pulm referral, they will further discuss with pcp at next appt. Controlled substance agreement signed 01/21/2017 03/30/2023 Tubular adenoma of colon 10/21/2016 Overview: cecum GI (gastrointestinal bleed) 09/27/2016 09/05/2017 Overview: [facility] 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 158/82 Vitamin D deficiency 07/02/2009 018 Overview: Vitamin D 16.9 Diverticulosis of colon with hemorrhage 02/23/2008 08/31/2012 Overview: Admitted to [facility] with lower GI bleed Acute gastritis with hemorrhage 02/23/2008 07/02/2009 Mild nonproliferative diabet ic retinopathy without macular edema associated with type 2 diabetes mellitus 06/07/2007 03/30/2023 SPRAIN LUMBOSACRAL 02/25/2005 6 Obesity, BMI not known 11/09/200401/08 Overview: Per Obesity Taxonomy HTN, goal below 140/90 01/22/200311/12 Overview: Per HTN Taxonomy. 158/82 Type 2 diabetes mellitus wit h hemoglobin A1c goal of less than 7.0% 10/30/2001 08/14/2009 Overview: Per Diabetes Taxonomy. ICD-10 update of inactive term Cramp in limb 01/10/2018 Mixed hyperlipidemia 014 BMI 31.0-31.9,adult 06/07/20 13 Cramp in limb 07/10/2019 documented as of this encounter (statuses as of 09/29/2023) Immunizations Name Administration Dates Next Due COVID-19 mRNA, LNP-s, No Pre serve, 2-Dose Series (Pfizer) 10/06/2021,01/24/2021,01/03/2021 Pneumococcal Conjugate Vacc, 13 Valent (Prevnar) 07/22/2015 Pneumococcal Polysaccharide PPV23 (Pneumovax) 12/31/2019,03/20/2007 Season Influenza, Quad, PF, Adjuvanted, 65+ Yrs, IM (FLUAD) 06/27/2020 Seasonal Influenza, PF, 6 M & above, IM , (FluLaval or Fluzone) 07/10/2019,07/17/2018 Seasonal Influenza, Quadriva lent Hd (Fluzone Hd) 06/28/2023,06/24/2022 Seasonal Influenza, Quadriva lent Hd, 65+ Yrs 07/17/2021,06/27/2020 Seasonal Influenza, Quadriva lent, No Preserve, IM 05/23/2017,06/28/2016,07/22/2015 Seasonal Influenza, Split, I IV3, With Preserve, Inj 2017,06/21/2014,07/05/2013,08/31,07/29/2011,07/20/2010,07/02/2009 ,08/08/2008,10/12/2007 TD - Tetanus/Diptheria (ADULT) 02/29/2008 TDAP (age 10 and older)(Boostrix) 06/07/2013 Varicella Zoster Vaccine (Adult) 07/06/2012 Zoster Vaccine Recombinant (Shingrix) 06/27/2020 ,12/31/2019 documented as of this encounter Social History Tobacco Use Types Packs/Day Years Used Date Smoking Tobacco: Former Cigarettes 2 23 0 1952 - 10/17/1984 Smokeless Tobacco: Former Chew Alcohol Use Standard Drinks/Week Comments Yes 1 (1 standard drink = 0.6 oz pur e alcohol) socially/rare PHQ-2 Answer Date Recorded PHQ Adult Total Score 0 06/28/2023 Hunger Vital Sign Answer Date Recorded Within the past 12 months, y ou worried that your food would run out before you got the money to buy more. Never true 06/28/20 23 Within the past 12 months, t he food you bought just didn't last and you didn't have money to get more. Never true 06/28/2023 Sex and Gender Information Value Date Recorded Sex Assigned at Male 03/12/2021 11:05 AM EDT Gender Identity Male 03/12/2021 11:05 AM EDT Sexual Orientation Straight 03/12/2021 11 :05 AM EDT Job Start Date Occupation Industry Not on file Not on file Not on file documented as of this encounter Miscellaneous Notes * Telephone Encounter - William Roche, [facility] - 09/29/2023 12:58 PM ESTSigned Prescriptions: Disp Refills Clopidogrel Bisulfate 75 MG Oral Tablet (p*90 Tab*3 Sig: Take 1 Tablet by mouth in the morning.Authorizing Provider: DAVID PALM User: WILLIAM ROCHE * Telephone Encounter - Janie Monreal, [employer] - 09/29/2023 8:44 AM EST Did you pend patient's preferred pharmacy and medication before forwarding?yes Pharmacy: [facility] [id number] [address] [place] REYES Pending Prescriptions: Disp Refills Clopidogrel Bisulfate 75 MG Oral Tablet (*90 Tab*3 Sig: Take 1 Tablet by mouth in the morning. Last Visit: 07/06/2023 (in office), Visit date not found (telemedicine) Next Visit: 01/10/2024 If no future appointments scheduled, and last appointment is greater than a year ago, please schedule patient for a follow-up appointment Last date the medication was ordered: 09/22/2022 Is this request for a controlled substance?No Urine Drug Screen:No results found for this or any previous visit. Patient Phone Numbers Labs: Lab Results Component Value Date/Time CREAT 0.9 07/08/2023 12:00 AM CREAT 1.1 11/03/2020 09:16 AM CREAT 0.9 01/14/1997 10:40 AM POTASSIUM 4.9 07/08/2023 12:00 AM POTASSIUM 4.5 11/03/2020 09:16 AM POTASSIUM 4.0 01/14/1997 10:40 AM TSH 1.09 07/08/2023 12:00 AM TSH 1.67 03/05/2019 09:42 AM LDLCALC 39 07/08/2023 12:00 AM LDLCALC 37 07/10/2020 10:41 AM LDLDIRECT 54 11/02/2021 03:03 PM LDLDIRECT NOT APPLICABLE 07/10/2020 10:41 AM ALT 50 03/11/2023 08:45 AM ALT 39 06/28/2016 11:10 AM HGBA1C 7.5 (A) 07/08/2023 12:00 AM HGBA1C 7.6 (H) 11/03/2020 09:16 AM HGBA1C 6.7 (H) 01/14/1997 10:40 AM documented in this encounter Plan of Treatment Upcoming Encounters Date Type Department Care Team (Late st Contact Info) Description 01/10/2024 2:30 PM EDT Office Visit Family Medicine [address] [place] [phone] Rebekah Giron, [address] [place] [address] 02/28/2024 1:00 PM EDT Office Visit Cardiology [address] [place] [address] Frederick Buck PA-C [address] [place] [address] 07/04/2024 3:00 PM EDT Nurse Only Ancillary [address] [place] [address] Jodi, Nurse [address] [place] [address] Scheduled Procedures Name Priority Associated Diagnoses Date/Ti me COLONOSCOPY FLEXIBLE PROXIMAL DIAGNOSTIC Recall History of colon polyps Health Maintenance Due Date Last Done Comments Hepatitis B (1 of 3 - Risk 3-dose series) 2000 DTaP,Tdap,and Td Vaccines (2 - Td or Tdap) 06/07/2023 06/07/2013, 02/29/2008 COVID-19 Vaccine ( - season) 2023 10/06/2021, 01/24/2021, 01/03/2021 Diabetic Foot Exam 06/24/2023 06/24/2022, 0 03/12/2021, 05/21/2020, Additional history exists Diabetic Eye Exam 11/18/2023 11/18/2022, , 06/29/2021, Additional history exists Albumin/Creatinine Ratio 12/13/2023 023, 11/02/2021, 01/08/2020, Additional history exists HbA1c 01/06/2024 07/08/2023, 02/15, 09/01/2022, Additional history exists B-12 03/11/2024 03/11/2023, 08/17, 05/05/2021, Additional history exists Depression Screening 06/28/2024 06/28/2023 GFR 07/08/2024 07/08/2023, 02/15, 09/01/2022, Additional history exists COLONOSCOPY-EVERY 5 YRS AGES 18-100 07/19/2024 07/19/2019, 07/19/2019, 10/21/2016, Additional history exists Pneumococcal Vaccine: 65+ Years Completed 12/31/2019, 07/22/2015, 03/20/2007, Additional history exists Zoster Vaccines Completed 06/27/2020, 12/15, 07/06/2012 Influenza Vaccine (FLU shot) Completed 09/2023, 06/24/2022, 07/17/2021, Additional history exists GARDASIL-HPV IMMUNIZATION SERIES Aged Out No longer eligible based on patient's age to complete this topic MENINGOCOCCAL (MENACTRA/MENVEO) Aged Out No longer eligible based on patient's age to complete this topic documented as of this encounter Medical Devices Implanted Type Area Flight Controls Engineer Device Identifier Shelf Expiration Date Model / Serial / Lot Lens Intraoc 21.5 - [id number] - [id number] Implanted:Qty: 1 on 05/27/2020 by Da Carter MD at OR [facility] Left: Eye [employer] 09/15/2024 [id number] / [id number] / Lens Intraoc 22.5 - [id number] - [id number] Implanted:Qty: 1 on 06/03/2020 by Da Carter MD at OR [facility] Right: Eye [employer]OM[employer] 09/15/2024 [id number] / [id number] / [id number] documented as of this encounter Visit Diagnoses Diagnosis History of CVA (cerebrovascular accident) Transient ischemic attack (TIA), and cerebral infarction without residual deficits TIA (transient ischemic attack) Unspecified transient cerebral ischemia documented in this encounter Care Teams Insurance Associate Relationship Specialty Start Date End Date David Palm MD [address] [place] [address] [place] [address] PCP - General Family Medicine 07/22/15 documented as of this encounter
--- OUTSIDE RECORDS SUMMARY | 2023-10-08 09:27 | External Medical Summary | Summary of Care ---
Author Name Unknown Organization [facility] Address [address] [place] [address] Phone [phone] Care Team Providers Care Business Librarian Name Role Phone David Brush MD Primary Care Provider Encounter Details Date Type Department Care Team Description 07/11/2023 Orders Only Family Medicine [address] [phone] David Brush MD [address] [place] [address] [place] [id number] Allergies No known active allergiesdocumented as of this encounter (statuses as of 07/11/2023) Medications Medication Sig Dispensed Refills Start Date End Date Status Flytivity SYSTEM W/DEVICE KITIndications:DM type 2, goal A1c below 7 Use up to four times a day as directed 1 Kit 0 04/08/2014 Active LANCETS MISCIndications:DM type 2, goal A1c below 7 test once a day 3 Box 1 12/31/2014 Active [employer] [employer] In Vitro Strip (Glucose Blood)Indications:T ype 2 diabetes mellitus with hemoglobin A1c goal of less than 7.5% ([facility]) Use to test blood sugar up to twice a day as directed. DxE11.9 200 Strip 3 12/28/2021 Active Aspirin 81 MG Oral Tablet Delayed [...] as needed for Dry eyes. 0 Active metFORMIN HCl ER 500 MG Oral Tablet Extended Release 24 Hour (Glucophage XR)Indications:Type 2 diabetes mellitus with hemoglobin A1c goal of less than 7.5% (HCC) Take by mouth 2 Tablets in the morning AND 2 Tablets before bedtime. 360 Tablet 3 07/02/2022 Active Clopidogrel Bisulfate 75 MG Oral Tablet (pLAVix)Indications :History of CVA (cerebrovascular accident),TIA (transient ischemic attack) Take 1 Tablet (75 mg) by mouth in the morning. 90 Tablet 3 09/22/2022 Active Pantoprazole Sodium 40 MG Oral Tablet Delayed Release (Protonix) Take 1 Tablet (40 mg) by mouth in the morning. 90 Tablet 3 09/22/2022 Active Gabapentin 100 MG Oral Capsule (Neurontin) 1 tab three times daily 270 Capsule 3 11/18/2022 Active Fluticasone Propionate 50 MCG/ACT Nasal Suspension (Flonase)Indication s:PND (post-nasal drip) Administer 2 Sprays into each nostril in the morning. 1 Each 0 12/08/2022 Active Benazepril HCl 10 MG Oral Tablet (Lotensin)Indicatio ns:Type 2 diabetes mellitus with hemoglobin A1c goal of less than 7.5% (HCC),Hyperlipidemi a with target LDL less than 100,Primary hypertension Take 1 Tablet by mouth in the morning. 90 Tablet 1 03/30/2023 Active Tamsulosin HCl 0.4 MG Oral Capsule (Flomax)Indications :BPH without obstruction/lower urinary tract symptoms Take 2 Capsules by mouth in the morning. 180 Capsule 1 03/30/2023 Active Magnesium Oxide 400 MG Oral TabletIndications:H ypomagnesemia Take 1 Tablet by mouth daily. 90 Tablet 3 04/08/2023 Active Citalopram Hydrobromide 20 MG Oral Tablet (CeleXA)Indications :Adjustment disorder with depressed mood Take 1 Tablet by mouth in the morning. 90 Tablet 1 05/17/2023 Active Atorvastatin Calcium 40 MG Oral Tablet (Lipitor)Indication s:Type 2 diabetes mellitus with hemoglobin A1c goal of less than 7.5% ([facility]),Dyslipidemia, goal LDL below 70 Take 1 tablet by mouth once daily 90 Tablet 1 07/06/2023 Active Hospital, Clinic, or Other Facility Administered Medication [...] as of this encounter (statuses as of 07/11/2023) Active Problems Problem Noted Date Mild basilar atelectasis of both lungs 0 02/17/2023 Lung disease, restrictive 02/17/2023 BMI 31.0-31.9,adult 09/29/2022 Overview: 211 Gastro-esophageal reflux disease without esophagitis 06/28/2022 Last Assessment & Plan: Sx controlled with pantoprazole Calculus of gallbladder without cholecys titis without obstruction 09/22/2021 Overview: Stones seen on CT Current moderate episode of major depressive disorder without prior episode 01/27/2021 Last Assessment & Plan: Stable on citalopram PAT (paroxysmal atrial tachycardia) 06/18 Last Assessment & Plan: Per cardiology note--occurred during stress testing. To continue to monitor. 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 None since last visit. Extensive w/u done by neuro -continue ASA, Plavix, statin. 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 He would like to discuss with pcp prior to deciding follow up/FNA. Primary hypertension 06/05/2012 Overview: Per HTN Protocol #27. 158/82 Last Assessment & Plan: BP at goal on benazepril Type 2 diabetes mellitus with hemoglobin A1c [...] Statin o Aspirin BPH without obstruction/lower urinary tr act symptoms 09/19/2006 Last Assessment & Plan: Sx controlled [...] as of this encounter (statuses as of 07/11/2023) Resolved Problems Problem Noted Date Resolved Date Adjustment disorder with depressed mood 12/08/19 23 12/08/2022 History of transient ischemic attack (TIA) 09/1709/17/2022 TIA (transient ischemic attack) 08/02/2022 09/17/2022 Interstitial pulmonary disease 11/02/2021 0 02/17/2023 Last Assessment & Plan: Lungs clear [...] 01/21/2017 03/30/2023 Tubular adenoma of colon 10/21/2016 017 Overview: cecum GI (gastrointestinal bleed) 09/27/201608/18 Overview: [facility] 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 158/82 Vitamin D deficiency 07/02/2009 01/10/2018 Overview: Vitamin D 16.9 Diverticulosis of colon with hemorrhage 02/23/20 08 08/31/2012 Overview: Admitted to [facility] with lower GI bleed Acute gastritis with hemorrhage 02/23/2008 07/02/2009 Mild nonproliferative diabet ic retinopathy without macular edema associated with type 2 diabetes mellitus 06/07/2007 023 SPRAIN LUMBOSACRAL 02/25/2005 01/27/2016 Obesity, BMI not known 11/09/2004 0 Overview: Per Obesity Taxonomy HTN, goal below 140/90 01/22/2003 0 Overview: Per HTN Taxonomy. 158/82 Type 2 diabetes mellitus wit h hemoglobin A1c goal of less than 7.0% 10/30/2001 08/14/2009 Overview: Per Diabetes Taxonomy. ICD-10 update of inactive term Cramp in limb 01/10/2018 Mixed hyperlipidemia 09/09/2014 BMI 31.0-31.9,adult 06/07/2013 Cramp in limb 07/10/2019 documented as of this encounter (statuses as of 07/11/2023) Immunizations Name Administration Dates Next Due COVID-19 mRNA, LNP-s, No Pre serve, 2-Dose Series (Pfizer) 10/06/2021,01/24/2021,01/03/2021 Pneumococcal Conjugate Vacc, 13 Valent (Prevnar) 07/22/2015 Pneumococcal Polysaccharide PPV23 (Pneumovax) 12/31/2019,03/20/2007 Season Influenza, Quad, PF, Adjuvanted, 65+ Yrs, IM (FLUAD) 06/27/2020 Seasonal Influenza, PF, 6 mo ns & Above, IM , (Flulaval) 07/10/2019,07/17/2018 Seasonal Influenza, Quadriva lent Hd (Fluzone [...] = 0.6 oz pur e alcohol) socially/rare Food Insecurity Answer Date Recorded Within the past 12 months, y ou worried that your food would run out before you got money to buy more. Never true 06/28/2023 Within the past 12 months, t he food you bought just didn't last and you didn't have money to get more. Never true 06/28/2023 Sex Assigned at Date Recorded Male 03/12/2021 11:05 AM EDT Job Start Date Occupation Industry Not on file Not on file Not on file documented as of this encounter Plan of Treatment Upcoming Encounters Date Type Specialty Care Team Description 07/18/2023 Office Visit [address] [place] [address] 08/23/2023 Office Visit Cardiology Frederick Buck PA-C [address] [place] [address] 01/10/2024 Office Visit Family Medicine Rebekah Giron, [address] [place] [address] 07/04/2024 Nurse Only Ancillary Jodi, Nurse Annual [address] [place] [address] Scheduled Procedures Name Priority Associated Diagnoses Date/Ti me COLONOSCOPY FLEXIBLE PROXIMAL DIAGNOSTIC Recall History of colon polyps Health Maintenance Due Date Last Done Comments COVID-19 Vaccine (4 - Pfizer series) 12/01/2021 10/06/2021, 01/24/2021, 01/03/2021 DTaP,Tdap,and Td Vaccines (2 - Td or Tdap) 06/07/2023 06/07/2013, 02/29/2008 Diabetic Foot Exam 06/24/2023 06/24/2022, 0 03/12/2021, 05/21/2020, Additional history exists HbA1c 09/11/2023 07/08/2023, 02/15, 09/01/2022, Additional history exists DIABETES-EYE EXAM 11/18/2023 11/18/2022, , 06/29/2021, Additional history exists Albumin/Creatinine Ratio 12/13/2023 023, 11/02/2021, 01/08/2020, Additional history exists B-12 03/11/2024 03/11/2023, 08/17, 05/05/2021, Additional history exists GFR 03/11/2024 07/08/2023, 02/15, 09/01/2022, Additional history exists Depression Screening 06/28/2024 06/28/2023 COLONOSCOPY-EVERY 5 YRS AGES 18-100 07/19/2024 07/19/2019, 07/19/2019, 10/21/2016, Additional history exists Pneumococcal Vaccine: 65+ Years Completed 12/31/2019, 07/22/2015, 03/20/2007, Additional history exists Zoster Vaccines Completed 06/27/2020, 12/15, 07/06/2012 Influenza Vaccine (FLU shot) Completed 09/2023, 06/24/2022, 07/17/2021, Additional history exists GARDASIL-HPV IMMUNIZATION SERIES Aged Out No longer eligible based on patient's age to complete this topic Hepatitis B Aged Out No longer eligi ble based on patient's age to complete this topic MENINGOCOCCAL (MENACTRA/MENVEO) Aged Out No longer eligible based on patient's age to complete this topic documented as of this encounter Medical Devices Implanted Type Area Film Librarian Device Identifier Shelf Expiration Date Model / Serial / Lot Lens Intraoc 21.5 - [id number] - [id number] Implanted:Qty: 1 on 05/27/2020 by Da Carter MD at OR [facility] Left: Eye [employer] 09/15/2024 [id number] / [id number] / Lens Intraoc 22.5 - [id number] - [id number] Implanted:Qty: 1 on 06/03/2020 by Da Carter MD at OR [facility] Right: Eye [employer]CH [employer]OMB 09/15/2024 [id number] / [id number] / [id number] documented as of this encounter Procedures Procedure Name Priority Date/Time Associated Diagnosis Comments CHEMISTRY-OUTSIDE Routine 07/08/2023 TSH Routine 07/08/2023 documented in this encounter Results * TSH (07/08/2023) TSH - OUTSIDE LAB 1.09 0.450 - 5.330 UIU/ML OUTSIDE LAB (SEE SCANNED REPORT) Blood Venous blood specimen / Unknown 07/08/2023 History Per Patient LAB BLOOD ORDERABLES OUTSIDE LAB (SEE SCANNED REPORT) * (ABNORMAL) CHEMISTRY-OUTSIDE (07/08/2023) Not all results display below - see scan for full detail OUTSIDE LAB (SEE SCANNED REPORT) Comment:SCAN INCL: [facility]: HA1C,VIT D, CBCD,LIPIDS, CMP,MAG, CREATININE-OUTSID E LAB 0.9 0.6 - 1.5 MG/DL OUTSIDE LAB (SEE SCANNED REPORT) EGFR-OUTSIDE LAB 85.7 OUT SIDE LAB (SEE SCANNED REPORT) POTASSIUM-OUTSIDE LAB 4.9 3.6 - 5.1 MMOL/L OUTSIDE LAB (SEE SCANNED REPORT) GLUCOSE-OUTSIDE LAB 110(A) 70 - 99 MG/DL OUTSIDE LAB (SEE SCANNED REPORT) HOURS FASTING OUTSID E LAB (SEE SCANNED REPORT) TRIGLYCERIDES-OUT SIDE LAB 56 <=150 MG/DL OUTSIDE LAB (SEE SCANNED REPORT) CHOLESTEROL-OUTSI DE LAB 95 <=200 MG/DL OUTSIDE LAB (SEE SCANNED REPORT) HDL-OUTSIDE LAB 44.8 40 - 60 MG/DL OUTSIDE LAB (SEE SCANNED REPORT) CHOL/HDL RATIO-OUTSIDE LAB OUTSIDE LA B (SEE SCANNED REPORT) LDL (CALCULATED)-OUTS THERESE LAB 39 5 - 100 MG/DL OUTSIDE LAB (SEE SCANNED REPORT) LDL (DIRECT MEASURE)-OUTSIDE LAB OUTSIDE LAB (SEE SCANNED REPORT) HEMOGLOBIN, L7T-TWUABWV LAB 7.5(A) 4.3 - 6.2 % OUTSIDE LAB (SEE SCANNED REPORT) PHOSPHORUS-OUTSID E LAB OUTSIDE LAB (SEE SCANNED REPORT) PTH-OUTSIDE LAB OUTS THERESE LAB (SEE SCANNED REPORT) MICROALBUMIN RATIO-OUTSIDE LAB OUTSIDE LA B (SEE SCANNED REPORT) PROTEIN, UA-OUTSIDE LAB OUTSIDE LAB (SEE SCANNED REPORT) HEMOGLOBIN-OUTSID E LAB 13.2 12.4 - 17.3 G/DL OUTSIDE LAB (SEE SCANNED REPORT) 07/08/2023 History Per Patient LABORATORY OUTSIDE LAB (SEE SCANNED REPORT) documented in this encounter Care Teams Business Librarian Relationship Specialty Start Date End Date David Brush MD [address] [place] [address] [place] [address] PCP - General Family Medicine 07/22/15 documented as of this encounter
--- OUTSIDE RECORDS SUMMARY | 2023-10-08 09:27 | External Medical Summary | Summary of Care ---
Author Name Unknown Organization [facility] Address [address] [place] [address] Phone [phone] Care Team Providers Care Wirer Maintenance Name Role Phone David Brush MD Primary Care Provider Reason for Visit * Reason Onset Date Comments Appointment 06/28/2023 Missed appt. Encounter Details Date Type Department Care Team Description 06/28/2023 Telephone Pharmacy Call Center [address] [facility] [place] [address] [place] [address] Appointment (Missed appt. ) Allergies No known active allergiesdocumented as of this encounter (statuses as of 06/28/2023) Medications Medication Sig Dispensed Refills Start Date End Date Status State of Ambition SYSTEM W/DEVICE KITIndications:DM type 2, goal A1c below 7 Use up to four times a day as directed 1 Kit 0 04/08/2014 Active LANCETS MISCIndications:DM type 2, goal A1c below 7 test once a day 3 Box 1 12/31/2014 Active [employer]Touch Verio In Vitro Strip (Glucose Blood)Indications:T ype 2 [...] the morning. 1 Each 0 12/08/2022 Active Atorvastatin Calcium 40 MG Oral Tablet (Lipitor) Take 1 tablet by mouth once daily 90 Tablet 1 02/02/2023 Active Benazepril HCl 10 MG Oral Tablet [...] the morning. 90 Tablet 1 05/17/2023 Active Hospital, Clinic, or Other Facility Administered [...] as of this encounter (statuses as of 06/28/2023) Active Problems Problem Noted Date Mild basilar [...] as of this encounter (statuses as of 06/28/2023) Resolved Problems Problem Noted Date Resolved Date [...] Overview: cecum GI (gastrointestinal bleed) 09/27/201608/18 Overview: [facility] 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 158/82 Vitamin D deficiency 07/02/2009 01/10/2018 Overview: Vitamin D 16.9 Diverticulosis of colon with hemorrhage 02/23/20 08 08/31/2012 Overview: Admitted to [facility] with lower GI bleed Acute gastritis with [...] as of this encounter (statuses as of 06/28/2023) Immunizations Name Administration Dates Next Due COVID-19 [...] encounter Miscellaneous Notes * Telephone Encounter - JUAN Win - 06/28/2023 3:50 PM EDT Patient Phone Numbers Left message on patients answering machine to schedule [facility] [place] for DM management. [facility] message sent --no Clinic will follow up again in 2 week(s). [Attempt # 1] Thank you, Jaimie Zhang Installation Specialist [facility] ([facility]) (Formerly Telepharm[facility]) 06/28/2023, 3:50 PM documented in this encounter Plan of Treatment Upcoming Encounters Date Type Specialty Care Team Description 07/06/2023 Office Visit Family Medicine David Brush MD [address] [place] [address] [place] [address] 07/13/2023 Pharmacy Pharmacy [address] [place] [address] 08/23/2023 Office Visit Cardiology Frederick Buck PA-C [address] [place] [address] 07/04/2024 Nurse Only Ancillary Jodi, Nurse Annual [address] [place] [address] Scheduled Procedures Name Priority Associated Diagnoses Date/Ti me COLONOSCOPY FLEXIBLE PROXIMAL DIAGNOSTIC Recall History of colon polyps Health Maintenance Due Date Last Done Comments COVID-19 Vaccine (4 - Pfizer series) 12/01/2021 10/06/2021, 01/24/2021, 01/03/2021 DTaP,Tdap,and Td Vaccines (2 - Td or Tdap) 06/07/2023 06/07/2013, 02/29/2008 Depression Screening 06/24/2023 06/24/2022 Diabetic Foot Exam 06/24/2023 06/24/2022, 0 03/12/2021, 05/21/2020, Additional history exists HbA1c 09/11/2023 03/11/2023, 08/17, 03/12/2022, Additional history exists DIABETES-EYE EXAM 11/18/2023 11/18/2022, , 06/29/2021, Additional history exists Albumin/Creatinine Ratio 12/13/202312/13/2 023, 11/02/2021, 01/08/2020, Additional history exists B-12 03/11/2024 03/11/2023, 08/17, 05/05/2021, Additional history exists GFR 03/11/2024 03/11/2023, 08/17, 03/12/2022, Additional history exists COLONOSCOPY-EVERY 5 YRS AGES [...] this encounter Medical Devices Implanted Type Area Radio Producer Device Identifier Shelf Expiration Date Model / Serial / Lot Lens Intraoc 21.5 - [id number] - [id number] Implanted:Qty: 1 on 05/27/2020 by Da Carter MD at OR [facility] Left: Eye [employer] 09/15/2024 [id number] / [id number] / Lens Intraoc 22.5 - [id number] - [id number] Implanted:Qty: 1 on 06/03/2020 by Da Carter MD at OR [facility] Right: Eye BAUSCH [employer]OMB 09/15/2024 [id number] / [id number] / [id number] documented as of this encounter Care Teams Wirer Maintenance Relationship Specialty Start Date End Date David Brush MD [address] [place] [address] [place] [address] PCP - General Family Medicine 07/22/15 documented as of this encounter
--- OUTSIDE RECORDS SUMMARY | 2023-10-08 09:27 | External Medical Summary | Summary of Care ---
Author Name Unknown Organization [facility] Address [address] [place] [address] Phone [phone] Care Team Providers Care Buffing Wheel Former Automatic Name Role Phone David Brush MD Primary Care Provider Encounter Details Date Type Department Care Team (Late st Contact Info) Description 08/09/2023 Orders Only Outcomes Research Department [address] [place], [place] [id number] Jacquelyn Snow CHRA [facility] Other*[id number] Allergies No known active allergiesdocumented as of this encounter (statuses as of 08/09/2023) Medications Medication Sig Dispensed Refills Start Date End Date Status AppGratis SYSTEM W/DEVICE KITIndications:DM type 2, goal A1c below 7 Use up to four times a day as directed 1 Kit 0 04/08/2014 Active LANCETS MISCIndications:DM type 2, goal A1c below 7 test once a day 3 Box 1 12/31/2014 Active My Healthy WorldTouch Verio In Vitro Strip (Glucose Blood)Indications:T ype 2 diabetes mellitus with hemoglobin A1c goal of less than 7.5% ([facility]) Use to test blood sugar up to twice a day as directed. DxE11.9 200 Strip 3 12/28/2021 Active Aspirin 81 MG Oral Tablet Delayed Release Take 1 Tablet by mouth in the morning. 0 03/15/2022 Active Vitamin D3 50 MCG (1999 UT) Oral Tablet Take 1 Tablet by [...] hemoglobin A1c goal of less than 7.5% (HCC),Dyslipidemia, goal LDL below 70 Take 1 tablet [...] as of this encounter (statuses as of 08/09/2023) Active Problems Problem Noted Date Diagnosed Date [...] as of this encounter (statuses as of 08/09/2023) Resolved Problems Problem Noted Date Diagnosed Date [...] cecum GI (gastrointestinal bleed) 09/27/2016 09/05/2017 Overview: [facility] 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 158/82 Vitamin D deficiency 07/02/2009 018 Overview: Vitamin D 16.9 Diverticulosis of colon with hemorrhage 02/23/2008 08/31/2012 Overview: Admitted to [facility] with lower GI bleed Acute gastritis with [...] as of this encounter (statuses as of 08/09/2023) Immunizations Name Administration Dates Next Due COVID-19 mRNA, LNP-s, No Pre serve, 2-Dose Series (Pfizer) 10/06/2021,01/24/2021,01/03/2021 Pneumococcal Conjugate Vacc, 13 Valent (Prevnar) 07/22/2015 Pneumococcal Polysaccharide PPV23 (Pneumovax) 12/31/2019,03/20/2007 SEASONAL INFLUENZA, PF, 6 M & Above, IM , (FLULAVAL or FLUZONE) 07/10/2019,07/17/2018 Season Influenza, Quad, PF, Adjuvanted, 65+ Yrs, IM (FLUAD) 06/27/2020 Seasonal Influenza, Quadriva lent Hd (Fluzone Hd) [...] Care Team (Late st Contact Info) Description 08/23/2023 1:00 PM EST Office Visit Cardiology [address] [place] [address] Frederick Buck PA-C [address] [place] [address] 01/10/2024 2:30 PM EDT Office Visit Family Medicine [address] [place] [phone] Rebekah Giron [address] [place] [address] 07/04/2024 3:00 PM EDT Nurse Only Ancillary [address] [place] [address] [place], Nurse [address] [place] [address] Scheduled Orders Name Type Priority Associated Diagnoses Orde r Schedule MYCODE SUBSEQUENT ADULT Lab Routine [employer] Research Other*[id number] Every 6 Months for 2 Occurrences starting 08/09/2023 until 08/28/2024 Scheduled Procedures Name Priority Associated Diagnoses Date/Ti me COLONOSCOPY FLEXIBLE PROXIMAL DIAGNOSTIC Recall History of colon polyps Health Maintenance Due Date Last Done Comments DTaP,Tdap,and Td Vaccines (2 - Td or Tdap) 06/07/2023 06/07/2013, 02/29/2008 COVID-19 Vaccine ( - season) 2023 10/06/2021, 01/24/2021, 01/03/2021 Diabetic Foot Exam 06/24/2023 06/24/2022, 0 03/12/2021, 05/21/2020, Additional history exists DIABETES-EYE EXAM 11/18/2023 11/18/2022, [...] this encounter Medical Devices Implanted Type Area Counter Weigher Device Identifier Shelf Expiration Date Model / Serial / Lot Lens Intraoc 21.5 - [id number] - [id number] Implanted:Qty: 1 on 05/27/2020 by Da Carter MD at OR [facility] Left: Eye [employer]OM[employer] 09/15/2024 [id number] / [id number] / Lens Intraoc 22.5 - [id number] - [id number] Implanted:Qty: 1 on 06/03/2020 by Da Carter MD at OR [facility] Right: Eye BAUSCH [employer] LOMB 09/15/2024 [id number] / [id number] / [id number] documented as of this encounter Visit Diagnoses Diagnosis [employer] [facility] Other*[id number] documented in this encounter Care Teams Buffing Wheel Former Automatic Relationship Specialty Start Date End Date David Brush MD [address] [place] [address] [place] [id number] PCP - General Family Medicine 07/22/15 documented as of this encounter
--- OUTSIDE RECORDS SUMMARY | 2023-10-08 09:27 | External Medical Summary | Summary of Care ---
Author Name Unknown Organization [facility] Address [address] [place] [address] Phone [phone] Care Team Providers Care Allied Health Teacher Name Role Phone David Brush MD Primary Care Provider [phone] Reason for Visit * Reason Onset Date Comments Adult Annual Wellness Visit, Subsequent Visit Medication Administration 06/28/2023 Flu an d/or Pneumo Inj Encounter Details Date Type Department Care Team Description 06/28/2023 Nurse Only Ancillary [place] [address] [place] [address] Jodi Nurse [address] [place] [address] Adult Annual Wellness Visit, Subsequent Vi... Allergies No known active allergiesdocumented as of this encounter (statuses as of 06/28/2023) Medications Medication Sig Dispensed Refills Start Date End Date Status Customized [employer] ULTRA SYSTEM W/DEVICE KITIndications:DM type 2, goal A1c below 7 Use up to four times a day as directed 1 Kit 0 04/08/2014 Active LANCETS MISCIndications:DM type 2, goal A1c below 7 test once a day 3 Box 1 12/31/2014 Active OneTouch Verio In Vitro Strip (Glucose Blood)Indications:T ype 2 diabetes mellitus with hemoglobin A1c goal of less than 7.5% ([facility]LY [facility]) Use to test blood sugar [...] Overview: cecum GI (gastrointestinal bleed) 09/27/201608/18 Overview: [facility] 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 158/82 Vitamin D deficiency 07/02/2009 01/10/2018 Overview: Vitamin D 16.9 Diverticulosis of colon with hemorrhage 02/23/20 08 08/31/2012 Overview: Admitted to [place] with lower GI bleed Acute gastritis with [...] 1952 - 10/17/1984 Smokeless Tobacco: Former Chew Tobacco Cessation:Counseling Given: Not Answered Alcohol Use Standard Drinks/Week Comments Yes 1 [...] on file documented as of this encounter Last Filed Vital Signs Vital Sign Reading Time Taken Comments Blood Pressure 114/60 06/28/2023 3:14 PM EDT Pulse 85 06/28/2023 3:14 PM EDT Temperature 36.5 C (97.7 F) 06/28/2023 3:14 PM ED T Respiratory Rate - - Oxygen Saturation 95% 06/28/2023 3:14 PM EDT Inhaled Oxygen Concentration - - Weight 97.2 kg (214 lb 3.2 oz) 06/28/2023 3:14 P M EDT Height 173.4 cm (5' 8.25") 06/28/2023 3:14 PM ED T Body Mass Index 32.33 06/28/2023 3:14 PM EDT documented in this encounter Patient Instructions * Patient Instructions* Caitie Anne RN - 06/28/2023 3:12 PM EDT Patient Instructions - Fall Prevention (This education is for all patients over 65 regardless of symptoms) Remember to take your current medications as prescribed. In order to prevent falls, you are encouraged to: Exercise Utilize assistive/adaptive devices Avoid multifocal lenses when walking Avoid hazards in home Maintain a regular toileting schedule Any questions please contact our office. Preventing Falls in the Home (This education is for all patients over 65 regardless of symptoms) As you get older, falls are more likely. Thats because your reaction time slows. Your muscles and joints may also get stiffer, making them less flexible. Illness, medications, and vision changes can also affect your balance. A fall could leave you unable to live on your own. To make your home safer, follow these tips: Floors Put nonskid pads under area rugs Remove throw rugs Replace worn floor coverings Tack carpets firmly to each step on carpeted stairs. Put nonskid strips on the edges of uncarpeted stairs Keep floors and stairs free of clutter and cords Arrange furniture so there are clear pathways Clean up any spills right away Bathrooms Install grab bars in the tub or shower Apply nonskid strips or put a nonskid rubber mat in the tub or shower Sit on a bath chair to bathe Use bathmats with nonskid backing Lighting Keep a flashlight in each room Put a nightlight along the pathway between the bedroom and the bathroom [employer] Patient Education Copyright 2008 - 2010 [employer] except where otherwise noted Preventing Falls: Exercises to Improve Balance, Flexibility, Strength, and Staying Power (This education is for all patients over 65 regardless of symptoms) Certain types of exercises may help make you less likely to fall. Try the ones below. Or do other exercises that your healthcare provider suggests. Depending on your health, you may need to start slowly. Dont let that stop you. Even small amounts of exercise can help you. Be sure to talk to yourhealthcare provider before starting any exercise program. Improve Balance Many types of exercise can help improve balance. Matt chi and yoga are good examples. Heres another one to try. You can do it anytime and almost anywhere. Stand next to a counter or solid support. Push yourself up onto your tiptoes. Hold for 5 seconds. If you start to lose your balance, hold on to the counter. Rest and repeat 5 times. Work up to holding for 20 to 30 seconds, if you can. Increase Flexibility Being more flexible makes it easier for you to move around safely. Try exercises like the seated hamstring stretch. Sit in a chair and put one foot on a stool. Straighten your leg and reach with both hands down either side of your leg. Reach as far down your leg as you can. Hold for about 20 seconds. Go back to the starting position. Then repeat 5 times. Switch legs. Build Strength Resistance exercises help build strength. You can do them without equipment. Or you can use weights, elastic bands, or special machines. One such exercise is called the biceps curl. You can hold a 1 pound weight or even a can of soup. Do this exercise at least 3 times a week. Strive for everyday. Sit up straight in a chair. Keep your elbow close to your body and your wrist straight. Bend your arm, moving your hand up to your shoulder. Then slowly lower your arm. Repeat 5 times. Switch to the other arm. Build Your Staying Power Aerobic exercises make your heart and lungs stronger so you can keep moving longer. Walking and swimming are two of the best types of exercises you can do. Using a stationary bike is great, too. Find an aerobic exercise that you enjoy. Start slowly and build up. Even 5 minutes is helpful. Aimfor a goal of 30 minutes, at least 3 times a week. You dont have to do 30 minutes in one session. Break it up and walk a little throughout the day. More Helpful Tips Start easy. Slowly work up to doing more. Talk with your healthcare provider about the best exercises for you. Call senior centers or health clubs about exercise programs. If needed, have a family member watch you walk every so often to check your stability. Exercise with a friend. Choose an activity you both enjoy. Try exercises that you can do anytime, anywhere. Here are two examples. Have someone with you when you first try these: Practice walking by placing one foot right in front of the other. Stand up and sit down 10 times. Repeat this throughout the day. [employer] Patient Education Copyright 2009 - 2010 [employer] except where otherwise noted. Preventing Falls: Moving Safely Using a Cane or Walker (This education is for all patients over 65 regardless of symptoms) Keep the cane away from your feet so you dont trip. A walking aid, such as a cane or walker, can help you stay more independent and avoid falls. Remember to keep your walking aid within easy reach when youre in a chair or in bed. And learn how to use it safely so you dont injure yourself. Using a Cane If you have a stronger side, hold the cane on that side. Get your balance. Move the cane and your weaker leg forward. Support your weight on both the cane and your weaker side. Step with your stronger leg. Start again from step 1. If youre using a folding walker, be sure you know how to lock it open. Check that its locked open before each use. Using a Walker Roll the walker (or lift it, if youre using one without wheels) forward about 12 inches. Step forward with your weaker leg first. Use the walker to help keep your balance. Bring your other foot forward to the center of the walker. Start again from step 1. Helpful Tips Check with your healthcare provider about the right walking aid to use. Ask about a walker with a seat attached. Check the tips of your cane or walker to make sure they have nonskid covers. Move slowly from room to room. Dont fish. Sit down to get dressed. Use a jairo pack or backpack to keep your hands free. Get help for jobs that mean climbing, even on a stepstool. [employer] Patient Education Copyright 2008 - 2010 [employer] except where otherwise noted. Treating Urinary Incontinence in Men (This education is for all patients over 65 regardless of symptoms) You can't always control the release of urine. You may leak urine. Or you may not be able to hold your urine until you can get to a bathroom. This is called urinary incontinence. The problem can be managed. Talk to your doctor about your treatment options. Taking Medications Prescription medications may help you. They may: Help the sphincter to work better. (This is the muscle that closes to keep urine from leaking out of the bladder.) Help stop the bladder from chau too often to push urine out. Help the bladder muscles contract with more force. Help relax the sphincter muscle and allow urine to flow more freely. Making Changes to Your Routine Certain changes in your daily routine may help. These include: Avoiding caffeine and alcohol. Using timed voiding. This is following a schedule for drinking fluids and urinating. Doing Kegel exercises daily. These exercises involve tightening the muscles in your sphincter and around your bladder to help strengthen them. Your doctor can explain how to do them. Using a Catheter A catheter is a narrow tube that is inserted through the urethra into the bladder. It drains urine.A condom catheter covers the penis. It channels urine into a collection bag. It is worn most of thetime. Intermittent catheterization means inserting a catheter to drain the bladder, then removing it. This is done on a regular schedule. Having Surgery If other options don't work, surgery may be recommended. If surgery is an option, your healthcare provider can discuss it with you and explain its risks and benefits. Healing After Prostate Surgery Surgery on the prostate gland can cause incontinence. Most often, the incontinence is only for a short time. It clears up when healing is complete. Very rarely, prostate surgery can result in permanent incontinence. Hi Mr. Nick, As your primary care physician, I know that regular visits with my patients who have several chronic conditions can go a long way in helping you stay healthy. Many times, the clinic team and I are in touch with you and/or other care team members between office visits to adjust medications, discuss any changes in your health, and review our care plan to make sure it is still meeting your needs. I am dedicated to helping you take a more active role in your overall care. It is important that there are resources available to you, so I created a personalized plan of care with a Health Calendar for you, which is included on the next page of this letter. Below is a list that summarizes your electronic health record: Health Maintenance Due: Health Maintenance Due Topic Date Due COVID-19 Vaccine (4 - Pfizer series) 12/01/2021 DTaP,Tdap,and Td Vaccines (2 - Td or Tdap) 06/07/2023 Influenza Vaccine (FLU shot) (1) 06/17/2023 Diabetic Foot Exam 06/24/2023 Depression Screening 06/24/2023 Current Medication List: (as of Visit date not found (in office), Visit date not found (telemedicine) ) Current Outpatient Medications Medication Sig Dispense Refill [employer] SYSTEM W/DEVICE KIT Use up to four times a day as directed 1 Kit 0 LANCETS MISC test once a day 3 Box 1 OneTouch Verio In Vitro Strip (Glucose Blood) Use to test blood sugar up to twice a day as directed. DxE11.9 200 Strip 3 Aspirin 81 MG Oral Tablet Delayed Release Take 1 Tablet by mouth in the morning. Vitamin D3 50 MCG (1999 UT) Oral Tablet Take 1 Tablet by mouth in the morning. Systane 0.4-0.3 % Ophthalmic Solution (Polyethyl Glycol-Propyl Glycol) Instill into eye as needed for Dry eyes. metFORMIN HCl ER 500 MG Oral Tablet Extended Release 24 Hour (Glucophage XR) Take by mouth 2 Tablets in the morning AND 2 Tablets before bedtime. 360 Tablet 3 Clopidogrel Bisulfate 75 MG Oral Tablet (pLAVix) Take 1 Tablet (75 mg) by mouth in the morning.90 Tablet 3 Pantoprazole Sodium 40 MG Oral Tablet Delayed Release (Protonix) Take 1 Tablet (40 mg) by mouthin the morning. 90 Tablet 3 Gabapentin 100 MG Oral Capsule (Neurontin) 1 tab three times daily 270 Capsule 3 Fluticasone Propionate 50 MCG/ACT Nasal Suspension (Flonase) Administer 2 Sprays into each nostril in the morning. 1 Each 0 Atorvastatin Calcium 40 MG Oral Tablet (Lipitor) Take 1 tablet by mouth once daily 90 Tablet 1 Benazepril HCl 10 MG Oral Tablet (Lotensin) Take 1 Tablet by mouth in the morning. 90 Tablet 1 Tamsulosin HCl 0.4 MG Oral Capsule (Flomax) Take 2 Capsules by mouth in the morning. 180 Capsule 1 Magnesium Oxide 400 MG Oral Tablet Take 1 Tablet by mouth daily. 90 Tablet 3 Citalopram Hydrobromide 20 MG Oral Tablet (CeleXA) Take 1 Tablet by mouth in the morning. 90 Tablet 1 Acetaminophen 500 MG Oral Tablet (Tylenol) Take 1 Tablet by mouth every 6 hours as needed. Current Facility-Administered Medications Medication Dose Route Frequency Provider Last Rate Last Admin Albuterol Sulfate (Proventil) (2.5 MG/3ML) 0.083% inhalation solution 2.5 mg 2.5 mg Nebulizer PRN Jung Gregory MD 2.5 mg at 01/14/23 1315 Albuterol Sulfate (Proventil) (5 MG/ML) 0.5% *conc* inhalation solution 2.5 mg 2.5 mg NebulizerPRKathy Gregory MD Current List of Allergies: (as of Visit date not found (in office), Visit date not found (telemedicine) ) Review of patient's allergies indicates: No Known Allergies Most Recent Lab Results: Results for orders placed or performed in visit on 03/30/23 MAGNESIUM Result Value Ref Range Magnesium 2.1 1.5 - 2.6 mg/dL Sincerely, David Brush MD 06/28/2023 [facility] Calendar (as of Visit date not found (in office), Visit date not found (telemedicine) ) Care needs Care needs Last completed Due next COVID-19 Vaccine (4 - Pfizer series) 10/06/2021 12/01/2021 Diphtheria, tetanus & pertussis vaccines (2 - Td or Tdap) 06/07/2013 06/07/2023 Flu vaccine (recommended) (1) 06/24/2022 06/17/2023 Diabetic Foot Exam 06/24/2022 06/24/2023 A1C blood sugar test 03/11/2023 09/11/2023 Dilated eye exam (by eye doctor or retinal camera) 11/18/2022 11/18/2023 Urine albumin/creatinine test 12/13/2022 12/13/2023 Kidney Function Test 03/11/2023 03/11/2024 Yearly B-12 vitamin test 03/11/2023 03/11/2024 Colonoscopy - every 5 years 07/19/2019 07/19/2024 As you look over the recommended services, be sure to check with your insurance company to determine what's covered. [employer] is a great tool that helps you review your medical record online, including test results, doctor notes and your health summary. You can also schedule appointments with me and other members of your care team, request prescription refills and ask for advice related to your medical conditions at [email or web address]. documented in this encounter Progress Notes * Caitie Anne RN - 06/28/2023 3:12 PM EDT PRE - ADMINISTRATION DOCUMENTATION Are you experiencing any cold symptoms or fever? No Have you had Guillain-Lamont Syndrome (an illness that causes paralysis) within the last 6 weeks? No Have you had the flu shot in the past? YES Have you ever had a reaction to the flu shot? No Caitie Anne RN, 06/28/2023 3:12 PM Immunization Administration Documentation Time Out Procedure Performed: Yes Patient Identified (Ask Name/Date of ): Yes Does the patient have a fever greater than 101 degrees today? No Patient allergic to latex? No VFC Stock: No Immunization(s) verified: Yes, Immunization Name: Flu, VIS Sheet(s) given: Yes Verified Side and Site: Yes Verified Shot(s) with Parent(s)/Patient: Yes AD8 Dementia Screening Interview Person answering questions: patient Remember, "Yes, a change" indicates that there has been a change in the last several years caused by cognitive (thinking and memory) problems 1. Problems with judgement (eg: problems making decisions, bad financial decisions, problems with thinking). No (0) 2. Less interest in hobbies/activities. No (0) 3. Repeats the same things over and over (questions, stories, or statements). No (0) 4. Trouble learning how to use a tool, appliance, or gadget (eg: VCR, computer, microwave, remote control). No (0) 5. Forgets correct month or year. Yes (1) 6. Trouble handling complicated financial affairs (eg: balancing checkbook, income taxes, paying bills). No (0) 7. Trouble remembering appointments. No (0) 8. Daily problems with thinking and/or memory. Yes (1) TOTAL AD8: 1 - AD8 Dementia Screening Score The final score is a sum of the number items marked "Yes, A Change". 0 - 1: Normal cognition; 2 or greater: Cognitive impairments is likely to be present - further testing required Adult Annual Wellness Visit: Angel Nick is a 83 year old male who presents for an Adult Annual Wellness Visit. Depression Screening: Did the patient complete the screening questionnaire for Depression? Yes Is the patient's total score for Depression 15 or greater? No, no further intervention needed, unless requested by patient. Did the patient answer positively to the suicide question? No, no further intervention needed, unless requested by patient. In general, compared to other people your age, what would you say that your health is? Good Ht Readings from Last 1 Encounters: 06/28/23 1.734 m (5' 8.25") Wt Readings from Last 1 Encounters: 06/28/23 97.2 kg (214 lb 3.2 oz) Body Mass Index: BMI Greater than 30 Body mass index is 32.33 kg/m. BP Readings from Last 1 Encounters: 06/28/23 114/60 Medical/Surgical/Family History Reviewed: Yes Past Medical History: Diagnosis Date Acute gastritis with hemorrhage 02/23/2008 Adjustment disorder with depressed mood Bacterial pneumonia age 17 BMI 32.0-32.9,adult BPH without obstruction/lower urinary tract symptoms 09/19/2006 Calculus of gallbladder without cholecystitis without obstruction 09/22/[address] Carpal tunnel syndrome of right wrist 01/17/2019 moderate to severe right CTS COVID-19 08/23/2022 nasal swab Cramp in limb Current moderate episode of major depressive disorder without prior episode (HCC) 01/27/2021 Degeneration of cervical intervertebral disc 03/23/2007 advanced disc disease C5-6, mild disease C3-4 and C6-7 DENTURES Disorder of intervertebral disc Diverticulitis of colon 08/22/2004 admitted to [facility] for lower GI bleed. 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 Thyroid nodule 12/30/2018 2 cm right lobe TIA (transient ischemic attack) 12/30/2018 [facility] transient right arm weakness TIA (transient ischemic attack) 03/11/2022 transient sx, TIA vs epilepsy. 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 COLONOSCOPY, DIAGNOSTIC (RECTUM) 08/2004 to evaluate GI bleed COLONOSCOPY, DIAGNOSTIC (RECTUM) 10/21/2016 adenomatous polyp, repeat 2 yrs/COLONOSCOPY FLEXIBLE PROXIMAL DIAGNOSTIC performed by Richardson Leone MD at ENDOSCOPY [facility] COLONOSCOPY, DIAGNOSTIC (RECTUM) 07/19/2019 5 mm adenomatous polyp at 30 cm, performed by Richardson Leone MD at ENDOSCOPY [facility] CTA HEAD W CONTRAST 12/30/2018 dimunative left vertebral artery with thrombus, large right mastoid effusion, 2 cm right thyroid nodule ECHO, COMPLETE (2D), TRANS-THORACIC 03/15/2019 normal LV size and function, no wall motion abnormalities, EF 60-64%, stage I diastolic dysfunction,similar to 05/03 EEG 03/13/2022 normal EEG during wakefullness EGD, FLEXIBLE, DIAGNOSTIC 09/28/2016 , duodenal erosions/inpt [facility] EGD, FLEXIBLE, W/BIOPSY N/A 09/28/2016 gastric ulcers and duodenal erosions, no active bleeding EMG, 2 EXTREMITIES Bilateral 01/17/2019 severe right carpal tunnel, chronic right ulnar neuropathy across the elbow. 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 EXTERNAL EKG REVIEW AND INTERP 01/03/2019 sinus, 47-131 with average 71. Rare ectopy HC MRI, BRAIN WITH/WITHOUT CONTRAST Bilateral 11/09/2021 subacute infarct so, moderate to severe chronic white matter changes, volume loss NM MYOCARDIAL PERFUSION SPECT MULTIPLE STUDIES 04/21/2018 negative for inducible ischemia, normal LV size and function, EF >65% REMOVE CATARACT, INSERT LENS PROSTH Left 05/27/2020 left EXTRACAPSULAR CATARACT REMOVAL WITH INTRAOCULAR LENS performed by Da Carter MD at OR [facility] REMOVE CATARACT, INSERT LENS PROSTH Right 06/03/2020 right EXTRACAPSULAR CATARACT REMOVAL WITH INTRAOCULAR LENS performed by Da Carter MD at OR [facility] US AAA SCREEN, RADIOLOGY 04/16/2014 2.9 cm max, no AAA US HEAD AND NECK 01/04/2019 [id number] mm Right lobe midpole mildly complex cystic nodule. FNA suggested VASC ANKLE BRACHIAL INDEX 07/18/2009 Right 1.1, left 1.2, normal VASC DUPLEX CAROTID BILAT 10/30/2007 no stenosis either carotid Family History Problem Relation Age of Onset Hypertension Brother No Past Hx Son Cancer Brother (Half) Has patient ever had cancer? No Social History Tobacco Use Smoking status: Former Packs/day: 2.00 Years: 23.00 Pack years: 46.00 Types: Cigarettes Start date: 1952 Quit date: 10/17/1984 Years since quittin.7 Smokeless tobacco: Former Types: Chew Substance Use Topics Alcohol use: Yes Alcohol/week: 1.0 standard drink Types: 1 12 oz of beer per week Comment: socially/rare Vaping/E-Cigarette Use Vaping/E-Cigarette Use Never User Vaping/E-Cigarette Substances Vaping/E-Cigarette Devices Tobacco/Alcohol screening completed today? Yes Hospital Care: Admissions (within the last year): Not Applicable ER within 30 days: No Does the patient have an Advance Directives/Living Will? Yes, POA Last Physical Exam: Last physical exam: 03/2023 Does patient see primary provider regularly? Yes Does patient see other providers? Yes, Specialist Patient Care Team updated? Yes Review of patient's allergies indicates: No Known Allergies Immunization History Administered Date(s) Administered COVID-19 mRNA, LNP-s, No Preserve, 2-Dose Series ([employer]) 01/03/2021, 01/24/2021, 10/06/2021 Pneumococcal Conjugate Vacc, 13 Valent (Prevnar) 07/22/2015 Pneumococcal Polysaccharide PPV23 (Pneumovax) 07/25/2000, 03/20/2007, 12/31/2019 Season Influenza, Quad, PF, Adjuvanted, 65+ Yrs, IM (FLUAD) 06/27/2020 Seasonal Influenza, PF, 6 mons & Above, IM , (Flulaval) 07/17/2018, 07/10/2019 Seasonal Influenza, Quadrivalent Hd (Fluzone Hd) 06/24/2022, 06/28/2023 Seasonal Influenza, Quadrivalent Hd, 65+ Yrs 06/27/2020, 07/17/2021 Seasonal Influenza, Quadrivalent, No Preserve, IM 07/22/2015, 06/28/2016, 05/23/2017 Seasonal Influenza, Split, IIV3, With Preserve, Inj 10/12/2007, 08/08/2008, 07/02/2009, 07/20/2010,07/29/2011, 08/31/2012, 07/05/2013, 06/21/2014, 2017 TD - Tetanus/Diptheria (ADULT) 02/29/2008 TDAP (age 10 and older)(Boostrix) 06/07/2013 Varicella Zoster Vaccine (Adult) 07/06/2012 Zoster Vaccine Recombinant (Shingrix) 12/31/2019, 06/27/2020 Current Outpatient Medications Medication Sig Dispense Refill [employer] SYSTEM W/DEVICE KIT Use up to four times a day as directed 1 Kit 0 LANCETS MISC test once a day 3 Box 1 Vedicisuch Verio In Vitro Strip (Glucose Blood) Use to test blood sugar up to twice a day as directed. DxE11.9 200 Strip 3 Aspirin 81 MG Oral Tablet Delayed Release Take 1 Tablet by mouth in the morning. Vitamin D3 50 MCG (2000 UT) Oral Tablet Take 1 Tablet by mouth in the morning. Systane 0.4-0.3 % Ophthalmic Solution (Polyethyl Glycol-Propyl Glycol) Instill into eye as needed for Dry eyes. metFORMIN HCl ER 500 MG Oral Tablet Extended Release 24 Hour (Glucophage XR) Take by mouth 2 Tablets in the morning AND 2 Tablets before bedtime. 360 Tablet 3 Clopidogrel Bisulfate 75 MG Oral Tablet (pLAVix) Take 1 Tablet (75 mg) by mouth in the morning. 90 Tablet 3 Pantoprazole Sodium 40 MG Oral Tablet Delayed Release (Protonix) Take 1 Tablet (40 mg) by mouth in the morning. 90 Tablet 3 Gabapentin 100 MG Oral Capsule (Neurontin) 1 tab three times daily 270 Capsule 3 Fluticasone Propionate 50 MCG/ACT Nasal Suspension (Flonase) Administer 2 Sprays into each nostril in the morning. 1 Each 0 Atorvastatin Calcium 40 MG Oral Tablet (Lipitor) Take 1 tablet by mouth once daily 90 Tablet 1 Benazepril HCl 10 MG Oral Tablet (Lotensin) Take 1 Tablet by mouth in the morning. 90 Tablet 1 Tamsulosin HCl 0.4 MG Oral Capsule (Flomax) Take 2 Capsules by mouth in the morning. 180 Capsule 1 Magnesium Oxide 400 MG Oral Tablet Take 1 Tablet by mouth daily. 90 Tablet 3 Citalopram Hydrobromide 20 MG Oral Tablet (CeleXA) Take 1 Tablet by mouth in the morning. 90 Tablet1 Acetaminophen 500 MG Oral Tablet (Tylenol) Take 1 Tablet by mouth every 6 hours as needed. Current Facility-Administered Medications Medication Dose Route Frequency Provider Last Rate Last Admin Albuterol Sulfate (Proventil) (2.5 MG/3ML) 0.083% inhalation solution 2.5 mg 2.5 mg Nebulizer PRN Jung Gregory MD 2.5 mg at 01/14/23 1315 Albuterol Sulfate (Proventil) (5 MG/ML) 0.5% *conc* inhalation solution 2.5 mg 2.5 mg Nebulizer PRKit Gregory MD Patient Active Problem List Diagnosis Code Diverticulosis of colon K57.30 Full dentures Z97.2, K08.109 ADVANCE DIRECTIVE INFORMATION BPH without obstruction/lower urinary tract symptoms N40.0 Type 2 diabetes mellitus with hemoglobin A1c goal of less than 7.5% ([facility]) E11.9 Disorder of intervertebral disc M51.9 Primary hypertension I10 Dyslipidemia, goal LDL below 70 E78.5 BMI 31.0-31.9,adult Z68.31 Vertebral artery occlusion, 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 Carpal tunnel syndrome of right wrist G56.01 Ulnar neuropathy at elbow, 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, right G56.21 History of CVA (cerebrovascular accident) Z86.73 Bradycardia, sinus R00.1 Type 2 diabetes mellitus with mild nonproliferative diabetic retinopathy without macular edema, bilateral ([facility]) E11.3293 PAT (paroxysmal atrial tachycardia) ([facility]) I47.1 Thyroid nodule E04.1 Current moderate episode of major depressive disorder without prior episode ([facility]) F32.1 Calculus of gallbladder without cholecystitis without obstruction K80.20 Gastro-esophageal reflux disease without esophagitis K21.9 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 Yes Patient takes medications as prescribed? Yes Patient manages own medications: No Patient uses a pill box? Yes, refill[facility]: No full Eye Screening: Yes: Every year Are you having trouble with hearing? Yes Do you use an assistive device to help your hearing? Yes, bilateral and not wearing today. Exercise Screening: daily exercise walk daily, PT was to house to evaluate Nutrition Assessment: breakfast, Pain Screening: Are you having any pain? No Sleep Screening Tool 'STOP': Do you snore? No Do you feel fatigued during the day? No Do you wake up feeling like you haven't slept? No Have you been told you stop breathing at night? No Do you gasp for air or choke while sleeping? No Have you been told you have Sleep Apnea? No Do you have high blood pressure or are on medication(s) to control high blood pressure? Yes SCORE: If you check YES to two or more questions, make a referral for Obstructive Sleep Apnea Pt declined rajan referral Patient and Caregiver Support System: Patient lives alone Means of Transportation: Drives. Not a concern. Patient lives in Two Story - How many stairs: 15 railings and chair lift Community Resources: Meals on Wheels Functional Status and ADL Skills: Has patient ever had an amputation? No Functional Assessment: 90- Able to carry on normal activity, minor symptoms of disease Ambulation: Patient ambulates without assistive device. Independent Dressing: Gets clothes and dresses without any assistance: Independent Able to move freely in chair or bed including turning over: Independent Repositioning (bed or chair): Not applicable Transfers: Independent Toileting: Goes to bathroom, uses toilet, arranges clothes and returns without any assistance: Independent Toileting: continent of bladder and continent of bowel Feeding: Self Bathing: Self; multiple bathrooms, walk in , shower chair with the tub and shower, with grab bars and high toilet seat. Requires minimal assistance with ADLs. Instrumental ADL's: Shopping: Minimal Assistance Housekeeping: Minimal Assistance Handling Finances: Minimal Assistance DME Vendor Name: Not Applicable Fall Risk Assessment: Can the patient demonstrate that he can stand from a sitting position? Yes Has the patient had a fall within the last 6 months? No Does the patient have a problem with his gait or balance? Yes Does the patient take 4 or more prescription medicines? Yes Does the patient use sedatives or narcotics? No Fall Risk Factors Present: Uses more than 4 medications Balance or gait disturbances Lower extremity weakness Visually impaired Older than age 70 Umw-Ol-afp-Go Test: Time began at 300. Patient stood from sitting position and walked approximately 10 feet, returned and sat down. Total time for lsl-dz-enc-go test was 10 seconds. Ksb-Np-yga-Go Test completed? Yes Gender Specific Preventative Plan: Health Maintenance Topic Date Due COVID-19 Vaccine (4 - Pfizer series) 12/01/2021 DTaP,Tdap,and Td Vaccines (2 - Td or Tdap) 06/07/2023 Diabetic Foot Exam 06/24/2023 Depression Screening 06/24/2023 HbA1c 09/11/2023 DIABETES-EYE EXAM 11/18/2023 Albumin/Creatinine Ratio 12/13/2023 GFR 03/11/2024 B-12 03/11/2024 COLONOSCOPY-EVERY 5 YRS AGES 18-100 07/19/2024 Influenza Vaccine (FLU shot) Completed Zoster Vaccines Completed Pneumococcal Vaccine: 65+ Years Completed Hepatitis B Aged Out MENINGOCOCCAL (MENACTRA/MENVEO) Aged Out GARDASIL-HPV IMMUNIZATION SERIES Aged Out Follow Up/ Referrals/Handouts: Depression screening - completed Functional assessment - discussed , doing well brother and [place] help out a lot Falls Risk screening - discussed PT was out and approved house Exercise screening - If poor exercise habits, provide exercise handouts Nutrition assessment -. Education Provided and Handouts Provided Pain screening - occ lower back Incontinence screening - no concerns Routine general medical examination at a health care facility (Primary) Risk and functional assessment Need for prophylactic vaccination and inoculation against influenza - INFLUENZA VACC, QUAD, HIGH DOSE (FLUZONE HD) BPH without obstruction/lower urinary tract symptoms - Med reconciliation completed and compliance discussed. - pt to continue present medications. Current moderate episode of major depressive disorder without prior episode (HCC) - Med reconciliation completed and compliance discussed. - pt to continue present medications. Dyslipidemia, goal LDL below 70 - Med reconciliation completed and compliance discussed. - pt to continue present medications. Gastro-esophageal reflux disease without esophagitis - Med reconciliation completed and compliance discussed. - pt to continue present medications. Type 2 diabetes mellitus with hemoglobin A1c goal of less than 7.5% (HCC) Type 2 diabetes mellitus with mild nonproliferative diabetic retinopathy without macular edema, bilateral ([facility]) - Med reconciliation completed and compliance discussed. - pt to continue present medications. 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 Follow Up: Return in 1 year (on 06/28/2024) for 12 month Subsequent Adult Wellness Visit. | For: 12 month Subsequent Adult Wellness Visit | Check-out note: 12 month Subsequent Adult Wellness Visit Would patient like to schedule next AWV visit? Yes Caitie Anne RN documented in this encounter Miscellaneous Notes * Pt Handout (on AVS) - Caitie Anne RN - 06/28/2023 3:47 PM EDT Images from the original note were not included. 89256 Understanding Carbohydrates A car needs the right type of fuel to run. And you need the right kind of food to function. To keepyour energy level up, your body needs food that has carbohydrates (carbs). But carbs raise blood sugar levels higher and faster than other kinds of food. Your dietitian will work with you to figure out the amount of carbs you need. Carbs come in 3 types: starches, sugars, and fiber. Starches Starches are found in grains, some vegetables, and beans. Grain products include bread, pasta, cereal, and tortillas. Starchy vegetables include potatoes, peas, corn, joshi beans, yams, and squash. Kidney beans, drake beans, black beans, garbanzo beans, and lentils also have starches. Sugars Sugars are found naturally in many foods. Or they can be added. Foods that contain natural sugar include fruits and fruit juices, dairy products, honey, and molasses. Added sugars are found in most desserts, processed foods, candy, regular soda, and fruit drinks. These are very helpful to treat lowblood sugar (hypoglycemia). They give you sugar quickly. Try to keep at least 15 to 20 grams of these simple sugars with you at all times. Eat or drink these if you start to have symptoms of low blood sugar. Fiber Fiber comes from plant foods. Your body can't digest most fiber. Instead of raising blood sugar levels like other carbs, fiber stops blood sugar from rising too fast. Fiber is found in fruits, vegetables, whole grains, beans, peas, and many nuts. Carb counting Keep track of the amount of carbs you eat. This can help you keep the right balance of carbs, physical activity, and medicine. The amount of carbs you need will be different from what other people need. How much you need depends on many things. These include your health, the medicines you take, andhow active you are. Your healthcare team will help you figure out the right amount of carbs for you. You may start with 45 to 60 grams of carbs per meal, depending on your case. Carb counting is a system that helps you keep track of the carbohydrates you eat at each meal. Carbs come from many foods. These include grains, starchy vegetables, fruit, milk, beans, and snackfoods. You can either count carbohydrate grams or carbohydrate servings. When you count carbohydrate servings, 1 carbohydrate serving = 15 grams of carbohydrates. Here are some examples of foods that have about 15 grams of carbs (1 serving of carbohydrates): 1/2 cup of canned or frozen fruit A small piece of fresh fruit (4 ounces) 1 slice of bread 1/2 cup of oatmeal 1/3 cup of rice 4 to 6 crackers 1/2 Lao muffin 1/2 cup of black beans 1/4 of a large baked potato (3 ounces) 2/3 cup of plain fat-free yogurt 1 cup of soup 1/2 cup of casserole 6 chicken nuggets 5-upjr-iufufd brownie or cake without frosting 2 small cookies 1/2 cup of ice cream or sherbet Carb counting is easier when food labels are available. Look at the label to see how many grams of total carbs per serving the food contains. Then you can figure out how much you should eat. If your food doesn't have a nutrition label, you should be able to get an idea how many carbs there are per serving by using a book or website. Two very important lines to look at on the label are the serving size and the total carbohydrate amount per serving. Here are some tips for using food labels to count your carbs: Check the serving size. The information on the label is based on that serving size. If you eat more than the listed serving size, you may have to double or triple the other information on the label. Check the total grams of carbs. Total carbohydrate from the label includes sugar, starch, and fiber. Be sure to use the total carbohydrate number (minus the fiber) and not sugar alone. Know how many grams of carbs you can have. Be familiar with the matching portion sizes. Compare labels. Compare the labels of different products. Look at serving sizes and total carbs to find the products that work best for you. Don't forget protein and fat. With the focus on carb counting, it might be easy to forget protein and fat in your meals. Don't forget to include sources of protein and healthy fat to balance your meals. Also watch how much salt (sodium) you eat. This is especially true if you have high blood pressure. If you have diabetes, limit the amount of sodium to less than 2,300 mg a day. It?s also important to be consistent with the amount of carbs and time you eat when taking a fixed dose of diabetes medicine. Work with your healthcare provider or dietitian if you need more help. They can help you keep track of your carbs. They can also help you figure out how many grams of carbs you should have. Last Reviewed Date: 09/16/202119995799-4778 [employer]. All rights reserved. This information is not intended as a substitute for professional medical care. Always follow your healthcare professional's instructions. * Pt Handout (on AVS) - Caitie Anne RN - 06/28/2023 3:46 PM EDT Images from the original note were not included. 56018 Diabetes: Meal Planning You can help keep your blood sugar level in your target range by eating healthy foods. Your healthcare team can help you create a low-fat, nutritious meal plan. Take an active role in your diabetes management. Follow your meal plan and work with your healthcare team. Make your meal plan A meal plan gives guidelines for the types and amounts of food you should eat. The goal is to balance food and insulin (or other diabetes medicines). That way, your blood sugars will be in your target range. Your dietitian will help you make a flexible meal plan that has many foods that you like. Watch serving sizes Your meal plan will group foods by servings. To learn how much a serving is, start by measuring food portions at each meal. Soon you?ll know what a serving looks like on your plate. Ask your healthcare provider about how to balance servings of different foods. Eat from all the food groups The basis of a healthy meal plan is eating lots of different foods. Choose lean meats, fresh fruitsand vegetables, whole grains, and low-fat or nonfat dairy products. Eating a wide variety of foods gives your body the nutrients it needs. It can also keep you from getting bored with your meal plan. Learn about carbohydrates, fats, and protein Carbohydrates (carbs). These are starches, sugars, and fiber. They're found in many foods. Theseinclude fruit, bread, pasta, milk, and sweets. Of all the foods you eat, carbs have the most effecton your blood sugar. Your dietitian may teach you about carb counting . This is a way to figure outthe number of carbohydrates in a meal. Healthier carbs are absorbed more slowly. They don't raise your blood sugar as much. Fats. These have the most calories. They also have the most effect on your weight and your risk of heart disease. When you have diabetes, it?s important to control your weight and protect your heart. Foods that are high in fat include whole milk, cheese, snack foods, and desserts. You can eat more of the heart- healthy fats such as avocados, salmon, tuna, and olive oil. Protein. This is important for building and repairing muscles and bones. Choose low-fat protein sources, such as fish, egg whites, and skinless chicken. Reduce liquid sugars Extra calories from sodas, sports drinks, and fruit drinks make it hard to keep blood sugar in range. Cut as many liquid sugars from your meal plan as you can. This includes most fruit juices. They are often high in natural or added sugar. Instead, have plenty of water and other sugar-free drinks. Eat less fat If you need to lose weight, try to reduce the amount of fat in your diet. This can also help lower your cholesterol level to keep blood vessels healthier. Cut fat by using only small amounts of liquid oil for cooking. Read food labels carefully. Stay away from foods with unhealthy trans fats. Time your meals right When it comes to blood sugar control, when you eat is as important as what you eat. You may need toeat several small meals spaced evenly throughout the day to stay in your target range. So don?t skip breakfast or wait until late in the day to get most of your calories. Doing so can cause your blood sugar to rise too high or fall too low. Last Reviewed Date: 09/16/202119996960-4459 [employer]. All rights reserved. This information is not intended as a substitute for professional medical care. Always follow your healthcare professional's instructions. * Pt Handout (on AVS) - Caitie Anne RN - 06/28/2023 3:46 PM EDT Images from the original note were not included. [id number] Diabetes: Learning About Serving and Portion Sizes Servings and portions. What?s the difference? These terms can be very confusing. But learning to measure serving sizes can help you figure out how many carbohydrates (carbs) and other foods you eat each day. They're also powerful tools for managing your weight. A good rule of thumb: Devote half your plate to vegetables and green salad. Split the other half between protein and starchy carbohydrates. Fruit makes a good dessert. Servings and portions Many different words are used to describe amounts of food. If your healthcare provider uses a term you?re not sure of, don?t be afraid to ask. It helps to know the difference between servings and portions: A serving size. This is a fixed size. Food producers use this term to describe their products. For example, the label on a cereal box could say that 1 cup of dry cereal = 1 serving. A portion (also called a helping). This is how much you eat or how much you put on your plate ivy meal. For instance, you might eat 2 cups of cereal at breakfast. Watching serving sizes The portion you choose to eat (such as 2 cups of cereal) may be more than 1 serving as listed on the food label (such as 1 cup of cereal). That?s why it helps to measure or weigh the food you eat. Because the food label values are based on servings, you?ll need to know how many servings you eat at 1 sitting. When you?re planning for a snack or a meal, keep servings in mind. If you don?t have measuring cupsor a scale handy, there are ways to figure out serving sizes. For instance, you can compare the food to the size of your hand (see pictures below). Here are some general tips: About 3 ounces of meat fits in the palm of your hand 1 cup of food is about the size of your fist An open hand holds about 1 to 2 ounces of nuts Ounces: 2 to 3 ounces is about the size of your palm. 1 cup: 1 cup (or a medium-sized piece) is about the size of your fist. 1/2 cup: 1/2 cup is about the size of your cupped hand. Managing portion sizes If your weight is a concern, reducing your portions can help. A portion is the amount of each type of food on your plate. You can eat more than 1 serving of a food at once. But to keep from eating too much at 1 meal, learn how to manage your portions. Portion control will also help with blood sugarmanagement. Last Reviewed Date: 10/17/202119999266-0397 [employer]. All rights reserved. This information is not intended as a substitute for professional medical care. Always follow your healthcare professional's instructions. * Pt Handout (on AVS) - Caitie Anne RN - 06/28/2023 3:46 PM EDT Images from the original note were not included. [id number] 5 Steps for Eating Healthier Changing the way you eat can improve your health. It can lower your cholesterol and blood pressure,and help you stay at a healthy weight. Your diet doesn?t have to be bland and boring to be healthy.Just watch your calories and follow these steps: Step 1. Eat fewer unhealthy fats Choose more fish and lean meats instead of fatty cuts of meat. Skip butter and lard, and use less margarine. Replace these with healthier fats, such as olive, canola, or avocado oils. Pass on foods that have palm, coconut, or partially hydrogenated oils. Eat fewer high-fat dairy foods like cheese, ice cream, and whole milk. Get a heart-healthy cookbook and try some new recipes. Step 2. Go light on salt Keep the saltshaker off the table. Limit high-salt ingredients, such as soy sauce, bouillon, and garlic salt. Instead of adding salt when cooking, season your food with herbs, spices, and other flavorings. Try lemon, garlic, onion, vinegar, or salt-free herb seasonings. Limit convenience foods, such as boxed or canned foods and restaurant food. Read food labels and choose lower-sodium options. Buy fresh, frozen, or canned vegetables that don't have added salt. Step 3. Limit sugar Pause before you add sugars to pancakes, cereal, coffee, or tea. This includes white and brown table sugar, syrup, honey, and molasses. Cut your usual amount by half. Swap out sugar-filled soda and other drinks. Buy sugar-free or low-calorie beverages. Remember, water is always the best choice. Try adding lemon juice to water for extra flavor. Read labels and choose foods with less added sugar. Keep in mind that dairy foods and foods withfruit will have some natural sugar. Cut the sugar in recipes by 1/3 to 1/2. Boost the flavor with extracts like almond, vanilla, or orange. Or add spices such as cinnamon or nutmeg. Step 4. Eat more fiber Eat fresh fruits and vegetables every day. Boost your diet with whole grains. Go for oats, whole-grain rice, and bran. Add beans and lentils to your meals. Drink more water to match your fiber increase to help prevent constipation. Step 5. Pay attention to serving sizes Remember that a serving size is a standard measurement. It will let you track the amount of fat,calories, and other nutrients in the food you eat. Read the Nutrition Facts label on packaged foods to learn their serving sizes. Use serving sizes to assess how much food you put on your plate. Pay attention to your portions.How many servings are you eating? Keep in mind that your needs may change if you?re more active or less active, or if you have other factors that change your calorie needs. Use your hand to help you measure serving sizes. For example: o 1 teaspoon: This is about the size of the first joint of your thumb. o 1 tablespoon: This is about the size of the first 2 joints of your thumb. o 1 ounce: This is about what you can fit in your cupped hand. o 2 to 3 ounces: This is about the size of the palm of your hand. o cup: This is also about what you can fit in your cupped hand. o 1 cup: This is about the size of your fist. Last Reviewed Date: 09/16/202219998156-4707 [employer]. All rights reserved. This information is not intended as a substitute for professional medical care. Always follow your healthcare professional's instructions. * Pt Handout (on AVS) - Caitie Anne RN - 06/28/2023 3:46 PM EDT A1C A1C Does this test have other names? Hemoglobin A1c; HbA1c; glycosylated hemoglobin; glycohemoglobin; Glycated hemoglobin What is this test? A1C is a blood test that shows average blood sugar (glucose) levels over the last 3 months. The test is done to find out if a person has diabetes or prediabetes. It's also used to see how well a person with diabetes controls their blood sugar. The test can help guide diabetes treatment over time. Why do I need this test? You may need this test to check for prediabetes or diabetes. If you have diabetes or prediabetes, you may need this test to see how well you control your blood sugar. People with diabetes need to track their blood sugar (glucose) levels every day to make sure they aren?t too high or too low. The A1C test gives results for a longer period of time. It shows ifyour blood sugar has been too high on average over the last 3 months. Glucose sticks to hemoglobin in the blood. Hemoglobin is a protein in red blood cells that carries oxygen. When blood sugar is high, more glucose builds up and sticks to the hemoglobin. The A1C test measures how much of the hemoglobin is coated with sugar. You may have the test when a healthcare provider first works with you to treat your diabetes. You may then need to have the A1C test 2 or more times a year. This depends on the type of diabetes you have and how well it?s controlled. The [place] Diabetes Association (ADA) advises an A1C test at least 2 times a year if you are meeting your blood sugar goals. If you aren?t meeting your goals or your medicine has changed, you should have the A1C test more often. What other tests might I have along with this test? If your healthcare provider tests you for diabetes, you may also have any of these tests: Fasting plasma glucose blood test (FPG) Oral glucose tolerance test (OGTT) Urine test to check for sugar, ketones, or protein What do my test results mean? Test results may vary depending on your age, gender, health history, the method used for the test, and other things. Your test results may not mean you have a problem. Ask your healthcare provider what your test results mean for you. A1C results are reported as a percentage. Here are what the results mean: A1C below 5.7%. This is normal. A1C from 5.7% to 6.4%. You may have prediabetes. This means you have a higher risk for diabetes in the future. A1C of 6.5% or above on 2 separate tests. You may have diabetes. The ADA says that people with diabetes should keep an A1C below 7%. The [place] Association of Clinical Endocrinologists advises an A1C of 6.5% or less. Your healthcare provider may give you other advice. This is based on your age, health conditions, and other things. How is this test done? The test is done with a blood sample. A needle is used to draw blood from a vein in your arm or hand. Does this test pose any risks? Having a blood test with a needle carries some risks. These include bleeding, infection, bruising, and feeling lightheaded. When the needle pricks your arm or hand, you may feel a slight sting or pain. Afterward, the site may be sore. What might affect my test results? Your blood sugar levels change throughout the day. This won't affect the A1C test result. If you have sickle cell anemia or other blood disorders, an A1C test may be less useful for diagnosing or watching diabetes. Your healthcare provider may tell you to use a different test that will work better for you. The test results may be less accurate if you have any of the below: Anemia Heavy bleeding Iron deficiency Kidney failure Liver disease How do I get ready for this test? You don't need to get ready for the test. Last Reviewed Date: 12/15/202119992570-3763 [employer]. All rights reserved. This information is not intended as a substitute for professional medical care. Always follow your healthcare professional's instructions. documented in this encounter Plan of Treatment Upcoming Encounters Date Type Specialty Care Team Description 07/06/2023 Office Visit Family Medicine David Brush MD [address] [place] [address] [place] [address] 07/13/[address] [place] [address] 08/23/2023 Office Visit Cardiology Frederick Buck PA-C [address] [place] [address] 07/04/2024 Nurse Only Ancillary Movkathrin, Nurse Annual Wellness [address] [place] [address] [place] [address] Scheduled Procedures Name Priority Associated Diagnoses Date/Ti [...] this encounter Medical Devices Implanted Type Area Office Communication Professor Device Identifier Shelf Expiration Date Model / Serial / Lot Lens Intraoc 21.5 - [id number] - [id number] Implanted:Qty: 1 on 05/27/2020 by Da Carter MD at OR [facility] Left: Eye [employer] 09/15/2024 [id number] / [id number] / Lens Intraoc 22.5 - [id number] - [id number] Implanted:Qty: 1 on 06/03/2020 by Da Carter MD at [facility] Right: Eye [employer]CH [employer]OMB 09/15/2024 [id number] / [id number] / [id number] documented as of this encounter Visit Diagnoses Diagnosis Routine general medical examination at a health care facility- Primary Risk and functional assessment Screening for unspecified condition Need for prophylactic vaccination and inoculation against influenza BPH without obstruction/lower urinary tract symptoms Hypertrophy of prostate without urinary obstruction and other lower urinary tract symptoms (LUTS) Current moderate episode of major depressive disorder without prior episode (HCC) Dyslipidemia, goal LDL below 70 Other and unspecified hyperlipidemia Gastro-esophageal reflux disease without esophagitis Esophageal reflux Type 2 diabetes mellitus with hemoglobin A1c goal of less than 7.5% (HCC) Type 2 diabetes mellitus with mild nonproliferative diabetic retinopathy without macular edema, bilateral (HCC) documented in this encounter Care Teams Allied Health Teacher Relationship Specialty Start Date End Date David Brush MD [address] [place] [address] [place] [address] PCP - General Family Medicine 07/22/15 documented as of this encounter
--- OUTSIDE RECORDS SUMMARY | 2023-10-08 09:27 | External Medical Summary | Summary of Care ---
Author Name Unknown Organization [facility] Address [address] [place] [address] Phone [phone] Care Team Providers Care Bark Press Operator Name Role Phone David Palm MD Primary Care Provider Reason for Visit * Reason Onset Date Comments Medication Refill 09/05/2023 Encounter Details Date Type Department Care Team (Late st Contact Info) Description 09/05/2023 Refill Family Medicine [address] [phone] David Palm MD [address] [place] [id number] Type 2 diabetes mellitus with hemoglobin A1c goal of less than 7.5% ([facility]) Allergies No known active allergiesdocumented as of this encounter (statuses as of 09/06/2023) Medications Medication Sig Dispensed Refills Start Date End Date Status LeWa Tek SYSTEM W/DEVICE KITIndications:DM type 2, goal A1c [...] as needed for Dry eyes. 0 Active Clopidogrel Bisulfate 75 MG Oral Tablet [...] directed. DxE11.9 200 Strip 3 09/06/2023 Active OneTouch Verio In Vitro Strip (Glucose Blood)Indications: Type 2 diabetes mellitus with hemoglobin A1c goal of less than 7.5% (HCC) Use to test blood sugar up to twice a day as directed. 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 158/82 Vitamin D deficiency 07/02/2009 018 Overview: Vitamin D 16.9 Diverticulosis of colon with hemorrhage 02/23/2008 08/31/2012 Overview: Admitted to [facility] with lower GI bleed Acute gastritis with [...] as of this encounter (statuses as of 09/06/2023) Immunizations Name Administration Dates Next Due COVID-19 [...] encounter Miscellaneous Notes * Telephone Encounter - Viky Tapia [facility] - 09/06/2023 2:08 PM ESTSigned Prescriptions: Disp Refills OneTouch Verio In Vitro Strip (Glucose Blo*[address] St*3 Sig: Use to test blood sugar up to twice a day as directed. DxE11.9 Authorizing Provider: DAVID PALM Ordering User: VIKY TAPIA * Telephone Encounter - Yolanda Lima, digital music instructor - 09/05/2023 3:46 PM EST Did you pend patient's preferred pharmacy and medication before forwarding?yes Pharmacy: [facility] [address] [address] YANELI REYES Pending Prescriptions: Disp Refills OneTouch Applimation In Vitro Strip (Glucose Bl*[address] St*3 Sig: Use to test blood sugar up to twice a day as directed. DxE11.9 Last Visit: 07/06/2023 (in office), Visit date not found (telemedicine) Next Visit: 01/10/2024 If no future appointments scheduled, and last appointment is greater than a year ago, please schedule patient for a follow-up appointment Last date the medication was ordered: 12/28/2021 Is this request for a controlled substance?No [...] 2:30 PM EDT Office Visit Family Medicine [address] [place] [phone] Rebekah Giron [address] [place] [address] 02/28/2024 1:00 PM EDT Office Visit Cardiology [address] [place] [address] Frederick Buck PA-C [address] [place] [address] 07/04/2024 3:00 PM EDT Nurse Only Ancillary [address] [place] [address] Jodi, Nurse Annual [address] [place] [address] Scheduled Procedures Name Priority Associated Diagnoses Date/Ti [...] this encounter Medical Devices Implanted Type Area Senior Supply Chain Analyst Device Identifier Shelf Expiration Date Model / Serial / Lot Lens Intraoc 21.5 - [id number] - [id number] Implanted:Qty: 1 on 05/27/2020 by Da Carter MD at OR [facility] Left: Eye [employer]OM[employer] 09/15/2024 [id number] / [id number] / Lens Intraoc 22.5 - [id number] - [id number] Implanted:Qty: 1 on 06/03/2020 by Da Carter MD at OR [facility] Right: Eye [employer]CH [employer]OMB 09/15/2024 [id number] / [id number] / [id number] documented as of this encounter Visit Diagnoses Diagnosis Type 2 diabetes mellitus with hemoglobin A1c goal of less than 7.5% (HCC) documented in this encounter Care Teams Bark Press Operator Relationship Specialty Start Date End Date David Palm MD [address] [place] [address] [place] [address] PCP - General Family Medicine 07/22/15 documented as of this encounter
--- OUTSIDE RECORDS SUMMARY | 2023-10-08 09:27 | External Medical Summary | Summary of Care ---
Author Name Unknown Organization [facility] [address] [facility] [address] Phone [phone] Care Team Providers Care Machining Supervisor Name Role Phone David Brush MD Primary Care Provider Reason for Visit * Reason Comments Dosage Adjustment In Person (Anticoag Cl inic) Diabetes Follow-Up Encounter Details Date Type Department Care Team Description 07/18/2023 Office Visit Pharmacy, [address] [place] [address] [place] [address] Type 2 diabetes mellitus with hemoglobin A1c goal of less than 7.5% (HCC)* Allergies No known active allergiesdocumented as of this encounter (statuses as of 07/18/2023) Medications Medication Sig Dispensed Refills Start Date End Date Status [employer] SYSTEM W/DEVICE KITIndications:DM type 2, goal A1c below 7 Use up to four times a day as directed 1 Kit 0 04/08/2014 Active LANCETS MISCIndications:DM type 2, goal A1c below 7 test once a day 3 Box 1 12/31/2014 Active PreEmptive SolutionsTouch Verio In Vitro Strip (Glucose Blood)Indications:T ype [...] hemoglobin A1c goal of less than 7.5% ([facility]),Dyslipidemia, goal LDL below 70 Take [...] as of this encounter (statuses as of 07/18/2023) Active Problems Problem Noted Date Mild basilar [...] as of this encounter (statuses as of 07/18/2023) Resolved Problems Problem Noted Date Resolved Date [...] Overview: cecum GI (gastrointestinal bleed) 09/27/201608/18 Overview: [facility] 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 158/82 Vitamin D deficiency 07/02/2009 01/10/2018 Overview: Vitamin D 16.9 Diverticulosis of colon with hemorrhage 02/23/20 08 08/31/2012 Overview: Admitted to [facility] with lower GI bleed Acute gastritis with [...] as of this encounter (statuses as of 07/18/2023) Immunizations Name Administration Dates Next Due COVID-19 [...] on file documented as of this encounter Progress Notes * Angelia Baxter, [facility] - 07/18/2023 1:28 PM EDT Medication Therapy Disease Management Clinic - Diabetes Management Progress Note Angel Nick, identified by name and date of , is a 83 year old male being seen for diabetes management/education. Patient presents for return diabetic visit. DIABETES: Current diabetic medications: Metformin ER 500mg - 2 tablets twice daily eGFR 85 as of 03/11/23 Target A1c: < 7.5% Medication Injection Site: N/A Lifestyle: Diet: unchanged Glucose Review/SMBG: Readings obtained from patient documented BG logbook Pre am 171 105 271 278 123 113 90 119 155 141 160 118 187 175 164 139 Average 157 [address] [phone] Range 188 Hypoglycemia: Does your blood sugar go below 70 mg/dL? No Hyperglycemia symptoms present: none Recent Labs Units 07/08/23 0000 03/11/23 0845 09/01/22 1102 HEMOGLOBIN A1C - [facility] % -- 7.6* 7.3* HEMOGLOBIN, [id number]-[id number] % 7.5* -- -- Recent Labs Units 07/08/23 0000 03/11/23 0845 09/01/22 1102 ESTIMATED GLOMERULAR FILTRATION RATE - [facility] mL/min -- 85 70 EGFR-[facility] LAB 85.7 -- -- CREATININE - [facility] mg/dL -- 0.9 1.1 CREATININE-OUTSIDE LAB MG/DL 0.9 -- -- HYPERTENSION: Patient on ACEi/ARB: yes BP Readings from Last 3 Encounters: 07/06/23 110/68 06/28/23 114/60 03/30/23 100/60 Blood pressure at goal: yes HYPERLIPIDEMIA: Patient is taking moderate or high intensity statin: yes HEALTH MAINTENANCE REVIEW: Health Maintenance Due Topic Date Due COVID-19 Vaccine (4 - Pfizer series) 12/01/2021 DTaP,Tdap,and Td Vaccines (2 - Td or Tdap) 06/07/2023 Diabetic Foot Exam 06/24/2023 ASSESSMENT & PLAN: ICD-10-CM 1. Type 2 diabetes mellitus with hemoglobin A1c goal of less than 7.5% ([facility]) E11.9 Considerations: Retinopathy - caution with GLP-1 Glimepiride/glipizide TEENA hypoglycemia - and patient against re-trial 2020 Does not qualify for PACE as of 2020 Care at [place] [facility] Stroke 02/2022 - would benefit from GLP1 or SGLT2 Per previous MTM note, For future: Julieth Kasper of [place] can help if/when SGLT2 is started so that patient gets medication through [place] system (low/no cost) ext [phone] Aakash Nick is brother's POA BG Readings - Blood sugars controlled. A1c remaining at goal. Medications - Reviewed current regimen, patient is adherent to regimen. Tolerating well and withoutissue. Diet, Exercise, Lifestyle - No significant lifestyle changes since last visit. Encouraged to continue to work on enjoying sweets in moderation; limiting CHOs. No changes today as patient is continuing to remain at goal. Discharge at this time due to great control. Welcome future referrals as appropriate. Thank you for allowing us to participate in the careof this patient. Patient is agreeable to SMBG 1-2 time(s) daily. Patient aware to contact clinic if any hypoglycemia before next visit. MEDICATION CHANGES: no change Diabetic Medications: Metformin ER 500mg - 2 tablets twice daily eGFR 85 as of 07/08/23 Target A1c: < 7.5% HEALTH MAINTENANCE INTERVENTIONS: Labs: Up to Date Immunizations: tdap, flu Foot Exam: Due Eye Exam: Up to Date Annual Wellness Visit: Up to Date FOLLOW UP: This patient has met their goal HgA1C and has been graduated from the [facility] Diabetes Management [facility] effective today. Angelia Baxter [facility] Clinical Pharmacist - Financial Institution Vice President Medication Therapy Management Clinic 07/18/2023, 1:28 PM documented in this encounter Plan of Treatment Upcoming Encounters Date Type Specialty Care Team Description 08/23/2023 Office Visit Cardiology Frederick Buck PA-C [address] [place] [address] 01/10/2024 Office Visit Family Medicine Rebekah Giron, [address] [place] [address] 07/04/2024 Nurse Only Ancillary Jodi, Nurse [address] [place] [address] Scheduled Procedures Name Priority Associated Diagnoses Date/Ti [...] this encounter Medical Devices Implanted Type Area Well Drill Operator Device Identifier Shelf Expiration Date Model / Serial / Lot Lens Intraoc 21.5 - [id number] - [id number] Implanted:Qty: 1 on 05/27/2020 by Da Carter MD at OR [facility] Left: Eye [employer]CH [employer] LOMB 09/15/2024 [id number] / [id number] / Lens Intraoc 22.5 - [id number] - [id number] Implanted:Qty: 1 on 06/03/2020 by Da Carter MD at OR [facility] Right: Eye BAUSCH & LOMB 09/15/2024 [id number] / [id number] / [id number] documented as of this encounter Visit Diagnoses Diagnosis Type 2 diabetes mellitus with hemoglobin A1c goal of less than 7.5% (HCC)- Primary documented in this encounter Care Teams Machining Supervisor Relationship Specialty Start Date End Date David Brush MD [address] [place] [address] [place] [address] PCP - General Family Medicine 07/22/15 documented as of this encounter
--- OUTSIDE RECORDS SUMMARY | 2023-10-08 09:27 | External Medical Summary | Summary of Care ---
Author Name Unknown Organization [facility] Address [address] [place] [address] Phone [phone] Care Team Providers Care Ore Crusher Name Role Phone David Brush MD Primary Care Provider Reason for Visit * Reason Comments Re-Check Encounter Details Date Type Department Care Team Description 07/06/2023 Office Visit Family Medicine [address] [id number] David Brush MD [address] [place] [address] [place] [address] Type 2 diabetes mellitus with hemoglobin A1c goal of less than 7.5% (HCC)*; Dyslipidemia, goal LDL below 70; Primary hypertension; PAT (paroxysmal atrial tachycardia) (HCC) Allergies No known active allergiesdocumented as of this encounter (statuses as of 07/06/2023) Medications Medication Sig Dispensed Refills Start Date End Date Status [email or web address] SYSTEM W/DEVICE KITIndications:DM type 2, goal A1c [...] hemoglobin A1c goal of less than 7.5% ([facility]),Dyslipidemia , goal LDL below 70 Take 1 tablet by mouth once daily 90 Tablet 1 07/06/2023 Active Atorvastatin Calcium 40 MG Oral Tablet (Lipitor) Take 1 tablet by mouth once daily 90 Tablet 1 02/02/2023 3 Discontinue d(Refill) Hospital, Clinic, or Other [...] as of this encounter (statuses as of 07/06/2023) Active Problems Problem Noted Date Mild basilar [...] as of this encounter (statuses as of 07/06/2023) Resolved Problems Problem Noted Date Resolved Date [...] Overview: cecum GI (gastrointestinal bleed) 09/27/201608/18 Overview: [facility] 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 158/82 Vitamin D deficiency 07/02/2009 01/10/2018 Overview: Vitamin D 16.9 Diverticulosis of colon with hemorrhage 02/23/20 08 08/31/2012 Overview: Admitted to [place] with lower GI bleed Acute gastritis with [...] as of this encounter (statuses as of 07/06/2023) Immunizations Name Administration Dates Next Due COVID-19 [...] Sign Reading Time Taken Comments Blood Pressure 110/68 07/06/2023 11:55 AM EDT Pulse 68 07/06/2023 11:55 AM EDT Temperature 36.6 C (97.9 F) 07/06/2023 11:55 AM E DT Respiratory Rate 16 07/06/2023 11:55 AM EDT Oxygen Saturation - - Inhaled Oxygen Concentration - - Weight 98.2 kg (216 lb 9 oz) 07/06/2023 11:55 AM EDT Height - - Body Mass Index 32.69 06/28/2023 3:14 PM EDT documented in this encounter Progress Notes * David Brush MD - 07/06/2023 12:00 PM EDT Radha's nose is running, and I guess Flonase got recalled or unavailable. So he has been using Jude Mayview Plus and that helps. I looked up the ingredients and don't have a problem with him using it. He had a wellness visit, got his flu shot. [facility] No complaints of headache, trouble with vision or hearing. Eating well, with no bowel or bladder complaints. Denies chest pain or palpitations. Denies shortness of breath, PND, or orthopnea. No skin rashes or breakdown. No changes in mentation. No syncope or falls. All others negative other than those noted in HPI. Past Medical History: Diagnosis Date Acute gastritis [...] disc Diverticulitis of colon 08/22/2004 admitted to [facility] for lower GI bleed. 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 Thyroid nodule 12/30/2018 2 cm right lobe TIA (transient ischemic attack) 12/30/2018 [facility] transient right arm weakness TIA (transient ischemic attack) 03/11/2022 transient sx, TIA vs epilepsy. [facility] Tubular adenoma of colon 10/21/2016 cecum [...] had GI bleed and was admitted to [facility] in [facility] COLONOSCOPY, DIAGNOSTIC (RECTUM) 08/2004 to evaluate GI bleed COLONOSCOPY, DIAGNOSTIC (RECTUM) 10/21/2016 adenomatous polyp, repeat 2 yrs/COLONOSCOPY FLEXIBLE PROXIMAL DIAGNOSTIC performed by Richardson Leone MD at ENDOSCOPY [facility] COLONOSCOPY, DIAGNOSTIC (RECTUM) 07/19/2019 5 mm adenomatous polyp at 30 cm, performed by Richardson Leone MD at [facility]COPY [facility] CTA HEAD W CONTRAST 12/30/2018 dimunative left vertebral artery with thrombus, large right mastoid effusion, 2 cm right thyroid nodule ECHO, COMPLETE (2D), TRANS-THORACIC 03/15/2019 normal LV size and function, no wall motion abnormalities, EF 60-64%, stage I diastolic dysfunction,similar to 05/03 EEG 03/13/2022 normal EEG during wakefullness EGD, FLEXIBLE, DIAGNOSTIC 09/28/2016 , duodenal erosions/inpt [facility] EGD, FLEXIBLE, W/BIOPSY N/A 09/28/2016 gastric [...] performed by Da Carter MD at OR [facility] REMOVE CATARACT, INSERT LENS PROSTH Right 06/03/2020 right EXTRACAPSULAR CATARACT REMOVAL WITH INTRAOCULAR LENS performed by Da Carter MD at OR [facility] US AAA SCREEN, RADIOLOGY 04/16/2014 2.9 cm max, no AAA US HEAD AND NECK 01/04/2019 [id number] mm Right lobe midpole mildly complex cystic nodule. 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 Employer: [employer] Tobacco Use Smoking status: Former Packs/day: 2.00 Years: 23.00 Pack years: 46.00 Types: Cigarettes Start date: 1952 Quit date: 10/17/1984 Years since quittin.7 Smokeless tobacco: Former Types: Chew Vaping Use Vaping Use: Never used Substance and Sexual Activity Alcohol use: Yes Alcohol/week: 1.0 standard drink Types: 1 12 oz of beer per week Comment: socially/rare Drug use: No Sexual activity: Yes Partners: Female Other Topics Concern Service Not Asked Blood Transfusions No Caffeine Concern Not Asked Occupational Exposure Not Asked Hobby Hazards Not Asked Sleep Concern Not Asked Stress Concern Not Asked Weight Concern Not Asked Special Diet Not Asked Back Care Not Asked Exercise Not Asked Bike Helmet Not Asked Seat Belt Yes Comment: 50% of time Self-Exams Not Asked Social History Narrative 62yrs as of 06/24/2022 passed 08/2022 away, lives alone now. Brother and AUSTIN live 150 yards from him check on his often. No mold No pets Social Determinants of Health Financial Resource Strain: Not on file Food Insecurity: No Food Insecurity Worried About Running Out of Food in the Last Year: Never true Ran Out of Food in the Last Year: Never true Transportation Needs: Not on file Physical Activity: Not on file Stress: Not on file Social Connections: Not on file Intimate Partner Violence: Not on file Housing Stability: Not on file Current Outpatient Medications Medication Sig Dispense Refill Atorvastatin Calcium 40 MG Oral Tablet (Lipitor) Take 1 tablet by mouth once daily 90 Tablet 1 [email or web address] SYSTEM W/DEVICE KIT Use up to four times a day as directed 1 Kit 0 LANCETS MISC test once a day 3 Box 1 PrecognateTouch Verio In Vitro Strip (Glucose Blood) Use to test blood sugar up to twice a day as directed. DxE11.9 200 Strip 3 Aspirin 81 MG Oral Tablet Delayed Release Take 1 Tablet by mouth in the morning. Vitamin D3 50 MCG (2000 UT) Oral Tablet Take 1 Tablet by mouth in the morning. Acetaminophen 500 MG Oral Tablet (Tylenol) Take 1 Tablet by mouth every 6 hours as needed. Systane 0.4-0.3 % Ophthalmic Solution (Polyethyl Glycol-Propyl [...] nostril in the morning. 1 Each 0 Benazepril HCl 10 MG Oral Tablet (Lotensin) [...] by mouth in the morning. 90 Tablet1 Current Facility-Administered Medications Medication Dose Route Frequency Provider Last Rate Last Admin Albuterol Sulfate (Proventil) (2.5 MG/3ML) 0.083% inhalation solution 2.5 mg 2.5 mg Nebulizer PRN Jung Gregory MD 2.5 mg at 01/14/23 1315 Albuterol Sulfate (Proventil) (5 MG/ML) 0.5% *conc* inhalation solution 2.5 mg 2.5 mg Nebulizer PRNJung Gregory MD Immunization History Administered Date(s) Administered COVID-19 mRNA, LNP-s, No Preserve, 2-Dose Series (Pfizer) 01/03/2021, 01/24/2021, 10/06/2021 Pneumococcal Conjugate Vacc, 13 [...] 07/06/2012 Zoster Vaccine Recombinant (Shingrix) 12/31/2019, 06/27/2020 Lab Results Component Value Date/Time HEMOGLOBIN A1C [...] - [facility] 7.3 (H) 01/08/2020 11:18 AM Results for orders placed or performed in visit on 03/11/23 LIPID PANEL WITH DIRECT LDL IF TG IS HIGH Result Value Ref Range Triglycerides 66 <=174 mg/dL Cholesterol 74 <200 mg/dL HDL Cholesterol 37 (L) >39 mg/dL Non-HDL Cholesterol 37 <=159 mg/dL LDL Cholesterol 24 <=129 mg/dL Results for orders placed or performed in visit on 03/11/23 BASIC METABOLIC PANEL Result Value Ref Range BUN 17 6 - 20 mg/dL Creatinine 0.9 0.6 - 1.2 mg/dL Estimated Glomerular Filtration Rate 85 >=60 mL/min Sodium 141 135 - 146 mmol/L Potassium 4.0 3.5 - 5.1 mmol/L Chloride 104 98 - 107 mmol/L CO2 25 22 - 32 mmol/L Anion Gap 12 7 - 15 mmol/L Glucose 131 (H) 70 - 120 mg/dL Calcium 9.2 8.4 - 10.2 mg/dL O: Blood pressure 110/68, pulse 68, temperature 36.6 C (97.9 F), temperature source Tympanic, resp. rate 16, weight 98.2 kg (216 lb 9 oz).. g Head normocephalic and atraumatic. No facial asymmetry. Eye exam; PEERLA, EOMI. No scleral icterus or nystagmus. Conjunctiva are pink and not injected. Oropharynx: no exudate, dentures and no pharyngeal inflammation. Trachea is in the midline. Neck supple with no adenopathy or thyromegaly. No carotid bruits. Chest expands equally and is symmetrical with normal AP diameter. Lungs clear, with no wheezes, rales, or rhonchi. Heart: S1 and S2 normal. PMInot obviously displaced. Heart regular, no murmurs, gallops, clicks or rubs. No CVA tenderness. No calf swelling or tenderness. No pedal edema. No skin rashes. Extremities unremarkable. A: Type 2 diabetes mellitus with hemoglobin A1c goal of less than 7.5% ([facility]) (Primary) - Atorvastatin Calcium 40 MG Oral Tablet (Lipitor); Take 1 tablet by mouth once daily - HEMOGLOBIN A1C; Future; Expected date: 07/06/2023 - BASIC METABOLIC PANEL; Future; Expected date: 07/06/2023 Dyslipidemia, goal LDL below 70 - Atorvastatin Calcium 40 MG Oral Tablet (Lipitor); Take 1 tablet by mouth once daily Primary hypertension PAT (paroxysmal atrial tachycardia) (HCC) Continue other meds as before. RTO 6 mos documented in this encounter Nursing Notes * Jennifer Burton LPN - 07/06/2023 11:49 AM EDT 3 month recheck Fluticasone nasal spray has been recalled. Needs alternative. Runny nose all the time uses jude seltzer plus, but supposed to be using it. documented in this encounter Plan of Treatment Upcoming Encounters Date Type Specialty Care Team Description 07/18/2023 Office Visit [address] [place] [address] 08/23/2023 Office Visit Cardiology Frederick Buck PA-C [address] [place] [address] 01/10/2024 Office Visit Family Medicine Rebekah Giron, [address] [place] [address] 07/04/2024 Nurse Only Ancillary Movkathrin, Nurse Annual [address] [place] [address] Scheduled Orders Name Type Priority Associated Diagnoses Orde r Schedule HEMOGLOBIN A1C Lab Routine Type 2 diabetes mellitus with hemoglobin A1c goal of less than 7.5% (HCC) Expected: 07/06/2023 (Approximate), Expires: 07/05/2024 BASIC METABOLIC PANEL Lab Routine Type 2 diabetes mellitus with hemoglobin A1c goal of less than 7.5% (HCC) Expected: 07/06/2023 (Approximate), Expires: 07/05/2024 Scheduled Procedures Name Priority Associated Diagnoses Date/Ti [...] 03/11/2024 03/11/2023, 08/17, 03/12/2022, Additional history exists Depression Screening 06/28/2024 06/28/2023 [...] this encounter Medical Devices Implanted Type Area Job Order Clerk Device Identifier Shelf Expiration Date Model / Serial / Lot Lens Intraoc 21.5 - [id number] - [id number] Implanted:Qty: 1 on 05/27/2020 by Da Carter MD at OR [facility] Left: Eye BAUSCH [employer] LOMB 09/15/2024 [id number] / [id number] / Lens Intraoc 22.5 - [id number] - [id number] Implanted:Qty: 1 on 06/03/2020 by Da aCrter MD at OR [facility] Right: Eye BAUSCH & LOMB 09/15/2024 [id number] / [id number] / [id number] documented as of this encounter Visit Diagnoses Diagnosis Type 2 diabetes mellitus with hemoglobin A1c goal of less than 7.5% (HCC)- Primary Dyslipidemia, goal LDL below 70 Other and unspecified hyperlipidemia Primary hypertension Unspecified essential hypertension PAT (paroxysmal atrial tachycardia) (HCC) Paroxysmal supraventricular tachycardia documented in this encounter Care Teams Ore Crusher Relationship Specialty Start Date End Date David Brush MD [address] [place] [address] [place] [address] PCP - General Family Medicine 07/22/15 documented as of this encounter
--- OUTSIDE RECORDS SUMMARY | 2023-10-08 09:27 | External Medical Summary | Summary of Care ---
Author Name Unknown Organization [facility] Address [address] [facility] [address] Phone [phone] Care Team Providers Care Associate Financial Representative Name Role Phone David Bursh MD Primary Care Provider Reason for Visit * Reason Onset Date Comments Test Results 03/15/2023 Returning Call 03/15/2023 Encounter Details Date Type Department Care Team Description 03/15/2023 Telephone [address]iology, [facility] [address] [place] [address] Frederick Buck, PATarasC [address] [facility], [place] [id number] Test Results; Returning Call Allergies No known active allergiesdocumented as of this encounter (statuses as of 07/21/2023) Medications Medication Sig Dispensed Refills Start Date End Date Status Jeeran ULTRA SYSTEM W/DEVICE KITIndications:DM type 2, goal A1c below 7 Use up to four times a day as directed 1 Kit 0 04/08/2014 Active LANCETS MISCIndications:D M type 2, goal A1c below 7 test once a day 3 Box 1 12/31/2014 Active OneTouch Verio In Vitro Strip (Glucose Blood)Indications :Type 2 diabetes mellitus with hemoglobin A1c goal [...] Oral Tablet Extended Release 24 Hour (Glucophage XR)Indications:Ty pe 2 diabetes mellitus with hemoglobin A1c goal of less than 7.5% (HCC) Take by mouth 2 Tablets in the morning AND 2 Tablets before bedtime. 360 Tablet 3 07/02/2022 Active Clopidogrel Bisulfate 75 MG Oral Tablet (pLAVix)Indicatio ns:History of CVA (cerebrovascular accident),TIA (transient ischemic attack) [...] Active Fluticasone Propionate 50 MCG/ACT Nasal Suspension (Flonase)Indicati ons:PND (post-nasal drip) Administer 2 Sprays into each nostril in the morning. 1 Each 0 12/08/2022 Active Tamsulosin HCl 0.4 MG Oral Capsule (Flomax)Indicatio ns:BPH without obstruction/lower urinary tract symptoms Take 2 capsules by mouth once daily 180 Capsule 2 08/18/2022 3 Discontinued (Refill) Citalopram Hydrobromide 20 MG Oral Tablet (CeleXA)Indicatio ns:Adjustment disorder with depressed mood Take 1 tablet by mouth once daily 90 Tablet 2 09/03/2022 3 Discontinued (Refill) Benazepril HCl 10 MG Oral Tablet (Lotensin)Indicat ions:Type 2 diabetes mellitus with hemoglobin A1c goal of less than 7.5% (HCC),Hyperlipide tabatha with target LDL less than 100 Take 1 Tablet by mouth in the morning. 90 Tablet 1 12/08/2022 3 Discontinued (Refill) Atorvastatin Calcium 40 MG Oral Tablet (Lipitor) Take 1 tablet by mouth once daily 90 Tablet 1 02/02/2023 3 Discontinued (Refill) Ventolin HFA 108 (90 Base) MCG/ACT Inhalation Aerosol Solution Inhale 2 Puffs by mouth every 4 hours as needed for Wheezing. 8 g 3 02/17/2023 3 Magnesium Oxide 400 MG Oral Tablet Take 1 Tablet by mouth daily. 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 158/82 Vitamin D deficiency 07/02/2009 01/10/2018 Overview: Vitamin D 16.9 Diverticulosis of colon with hemorrhage 02/23/20 08 08/31/2012 Overview: Admitted to [facility] with lower GI bleed Acute gastritis with [...] as of this encounter (statuses as of 07/21/2023) Immunizations Name Administration Dates Next Due COVID-19 mRNA, LNP-s, No Pre serve, 2-Dose Series (Jumpido) 10/06/2021,01/24/2021,01/03/2021 Pneumococcal Conjugate Vacc, 13 Valent (Prevnar) 07/22/2015 Pneumococcal Polysaccharide PPV23 (Pneumovax) 12/31/2019,03/20/2007 SEASONAL INFLUENZA, PF, 6 M & Above, IM , (FLULAVAL or FLUZONE) 07/10/2019,07/17/2018 Season Influenza, Quad, PF, Adjuvanted, 65+ Yrs, IM (FLUAD) 06/27/2020 Seasonal Influenza, Quadriva lent Hd (Fluzone Hd) 06/24/2022 Seasonal Influenza, Quadriva lent Hd, 65+ Yrs [...] encounter Miscellaneous Notes * Telephone Encounter - Nena Sibley, [facility] - 03/16/2023 10:45 AM EDT Reviewed provider messages below with caregiver per her request. Agreeable to GI referral. Is not taking iron supplement. Requesting Rx sent for Mg supplement - aware it likely will not be covered under insurance. Pt nelida repeat Mg lab after OV with PCP 03/30/2023. Please approve if appropriate. Pending Prescriptions: Disp Refills Magnesium Oxide 400 MG Oral Tablet 90 Tab*0 Sig: Take 1 Tablet by mouth in the morning. Thank you, Nena Sibley, PharmD Clinical Pharmacist Telepharmacy 03/16/23 10:46 AM [phone] * Telephone Encounter - NATACHA Velarde - 03/16/2023 10:35 AM EDT Pt's returning a call. She would like to discuss pt's lab results that were done. Transferringto [facility] Nena for further assistance. * Telephone Encounter - Jordan Osorio LPN - 03/15/2023 4:51 PM EDT Called patient and informed of Dennises messages. Patient verbalized understanding. Patient will check with the nurse who handles his medication to verify if an iron pill is taken. Awaiting reply to place GI referral. Labs ordered ----- Message from Frederick Buck PA-C sent at 03/11/2023 4:40 PM EDT ----- Very mild anemia. Additional labs requested, added to existing specimen.. Check FOBT. Low magnesium. Add magnesium oxide 400 mg/day. Recheck magnesium when in to see PCP. Lipids, liver, and thyroid look good. * Telephone Encounter - Jordan Osorio LPN - 03/15/2023 4:51 PM EDT ----- Message from Frederick Buck PA-C sent at 03/12/2023 6:15 PM EDT ----- TSAT 74%. Stop iron pill if taking If not taking iron pill, refer to GI documented in this encounter Plan of Treatment Upcoming Encounters Date Type Specialty Care Team Description 08/23/2023 Office Visit Cardiology Frederick Buck PA-C [address] [facility] [place] [address] 01/10/2024 Office Visit Family Medicine Rebekah Giron, [address] [place] [address] 07/04/2024 Nurse Only Ancillary Jodi Nurse Annual [address] [place] [address] Scheduled Orders Name Type Priority Associated Diagnoses Orde r Schedule FECAL OCCULT BLOOD, EIA Lab Routine Abnormal CBC Expected: 03/29/2023 (Approximate), Expires: 03/15/2024 Scheduled Procedures Name Priority Associated Diagnoses Date/Ti [...] this encounter Medical Devices Implanted Type Area Winder Helper Device Identifier Shelf Expiration Date Model / Serial / Lot Lens Intraoc 21.5 - [id number] - [id number] Implanted:Qty: 1 on 05/27/2020 by Da Carter MD at OR [facility] Left: Eye BAUSCH [employer] LOMB 09/15/2024 [id number] / [id number] / Lens Intraoc 22.5 - [id number] - [id number] Implanted:Qty: 1 on 06/03/2020 by Da Carter MD at OR [facility] Right: Eye BAUSCH & LOMB 09/15/2024 [id number] / [id number] / [id number] documented as of this encounter Results * MAGNESIUM (03/30/2023 12:33 PM EDT) Magnesium 2.1 1.5 - 2.6 mg/dL 03/31/2023 3:22 AM EDT [facility] Blood Venous blood specimen / Unknown Venipuncture / Unknown 03/30/2023 12:33 PM EDT 03/30/2023 12:33 PM EDT Frederick Buck PA-C LAB BLOOD ORDERABLE S [facility] [address] [place] [address] documented in this encounter Visit Diagnoses Diagnosis Abnormal CBC- Primary Other abnormal blood chemistry Hypomagnesemia Disorders of magnesium metabolism documented in this encounter Care Teams Associate Financial Representative Relationship Specialty Start Date End Date David Brush MD [address] [place] [address] [place] [address] PCP - General Family Medicine 07/22/15 documented as of this encounter
--- OUTSIDE RECORDS SUMMARY | 2023-10-08 09:27 | External Medical Summary | Summary of Care ---
Author Name Unknown Organization [facility] Address [address] [place] [address] Phone [phone] Care Team Providers Care Patternmaker Hand Name Role Phone David Palm MD Primary Care Provider [phone] Reason for Visit * Reason Onset Date Comments Medication Refill 05/17/2023 Encounter Details Date Type Department Care Team Description 05/17/2023 Refill Family Medicine [address] [phone] David Palm MD [address] [place] [address] [place] [address] Adjustment disorder with depressed mood Allergies No known active allergiesdocumented as of this encounter (statuses as of 05/17/2023) Medications Medication Sig Dispensed Refills Start Date End Date Status [employer] ULTRA SYSTEM W/DEVICE KITIndications:DM type 2, [...] once daily 90 Tablet 1 02/02/2023 Active Ventolin HFA 108 (90 Base) MCG/ACT Inhalation Aerosol Solution Inhale 2 Puffs by mouth every 4 hours as needed for Wheezing. 8 g 3 02/17/2023 3 Active Benazepril HCl 10 MG Oral Tablet [...] the morning. 90 Tablet 1 05/17/2023 Active Citalopram Hydrobromide 20 MG Oral Tablet (CeleXA)Indication s:Adjustment disorder with depressed mood Take 1 Tablet by mouth in the morning. 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 158/82 Vitamin D deficiency 07/02/2009 01/10/2018 Overview: Vitamin D 16.9 Diverticulosis of colon with hemorrhage 02/23/20 08 08/31/2012 Overview: Admitted to [facility] with lower GI bleed Acute gastritis with [...] as of this encounter (statuses as of 05/17/2023) Immunizations Name Administration Dates Next Due COVID-19 mRNA, LNP-s, No Pre serve, 2-Dose Series (Pfizer) 10/06/2021,01/24/2021,01/03/2021 Pneumococcal Conjugate Vacc, 13 Valent (Prevnar) 07/22/2015 Pneumococcal Polysaccharide PPV23 (Pneumovax) 12/31/2019,03/20/2007 Seasonal Influenza, Quadriva lent Hd (Fluzone Hd) 06/24/2022 Seasonal Influenza, Quadriva lent Hd, 65+ Yrs 07/17/2021,06/27/2020 Seasonal Influenza, Quadriva lent, No Preserve, 6 [place] & Above, IM 07/10/2019,07/17/2018 Seasonal Influenza, Quadriva lent, No Preserve, Adjuvanted, 65+ Yrs, IM 06/27/2020 Seasonal Influenza, Quadriva lent, No Preserve, IM [...] got money to buy more. Never true 06/24/2022 Within the past 12 months, t he food you bought just didn't last and you didn't have money to get more. Never true 06/24/2022 Sex Assigned at Date Recorded Male 03/12/2021 11:05 AM EDT Job Start Date Occupation Industry Not on file Not on file Not on file documented as of this encounter Miscellaneous Notes * Telephone Encounter - David Palm MD - 05/17/2023 3:21 PM EDTSigned Prescriptions: Disp Refills Citalopram Hydrobromide 20 MG Oral Tablet *90 Tab*1 Sig: Take 1 Tablet by mouth in the morning. Authorizing Provider: DAVID PALM * Telephone Encounter - Odalis Smiley RN - 05/17/2023 2:08 PM EDTPending Prescriptions: Disp Refills Citalopram Hydrobromide 20 MG Oral Tablet *90 Tab*1 Sig: Take 1 Tablet by mouth in the morning. * Telephone Encounter - DONN Palmer - 05/17/2023 1:54 PM EDT Did you pend patient's preferred pharmacy and medication before forwarding?yes Pharmacy: [facility] [address] YANELI REYES Pending Prescriptions: Disp Refills Citalopram Hydrobromide 20 MG Oral Tablet*90 Tab*1 Sig: Take 1 Tablet by mouth in the morning. Last Visit: 03/30/2023 (in office), Visit date not found (telemedicine) Next Visit: 07/05/2023 If no future appointments scheduled, and last appointment is greater than a year ago, please schedule patient for a follow-up appointment Last date the medication was ordered: 03/30/2023- add refills / 90 day supply Is this request for a controlled substance?No Urine Drug Screen:No results found for this or any previous visit. Patient Phone Numbers Labs: Lab Results Component Value Date/Time CREAT 0.9 03/11/2023 08:45 AM CREAT 0.89 03/12/2022 12:00 AM CREAT 1.1 11/03/2020 09:16 AM CREAT 0.9 01/14/1997 10:40 AM POTASSIUM 4.0 03/11/2023 08:45 AM POTASSIUM 3.9 03/12/2022 12:00 AM POTASSIUM 4.5 11/03/2020 09:16 AM POTASSIUM 4.0 01/14/1997 10:40 AM TSH 1.18 03/11/2023 08:45 AM TSH 1.67 03/05/2019 09:42 AM LDLCALC 24 03/11/2023 08:45 AM LDLCALC 31 03/12/2022 12:00 AM LDLCALC 37 07/10/2020 10:41 AM LDLDIRECT 54 11/02/2021 03:03 PM LDLDIRECT NOT APPLICABLE 07/10/2020 10:41 AM ALT 50 03/11/2023 08:45 AM ALT 39 06/28/2016 11:10 AM HGBA1C 7.6 (H) 03/11/2023 08:45 AM HGBA1C 8.5 03/12/2022 12:00 AM HGBA1C 7.6 (H) 11/03/2020 09:16 AM HGBA1C 6.7 (H) 01/14/1997 10:40 AM documented in this encounter Plan of Treatment Upcoming Encounters Date Type Specialty Care Team Description 06/28/2023 Office Visit [address] [place] [address] 06/28/2023 Nurse Only Ancillary Jodi, Nurse Annual [address] [place] [address] 07/05/2023 Office Visit Family Medicine David Palm MD [address] [place] [address] [place] [address] 08/23/2023 Office Visit Cardiology Frederick Buck PA-C [address] [place] [address] Scheduled Procedures Name Priority Associated Diagnoses Date/Ti me COLONOSCOPY FLEXIBLE PROXIMAL DIAGNOSTIC Recall History of colon polyps Health Maintenance Due Date Last Done Comments COVID-19 Vaccine (4 - Pfizer series) 12/01/2021 10/06/2021, 01/24/2021, 01/03/2021 DTaP,Tdap,and Td Vaccines (2 - Td or Tdap) 06/07/2023 06/07/2013, 02/29/2008 Influenza Vaccine (FLU shot) (#1) 2023 06/24/2022, 07/17/2021, 06/27/2020, Additional history exists DIABETES-FOOT EXAM 06/24/2023 06/24/2022, 0 03/12/2021, 05/21/2020, Additional history exists Depression Screening, Annual for Pts 12 and Over 06/24/2023 06/24/2022 HbA1c 09/11/2023 03/11/2023, 08/17, 03/12/2022, Additional history [...] exists Zoster Vaccines Completed 06/27/2020, 12/15, 07/06/2012 GARDASIL-HPV IMMUNIZATION SERIES Aged Out No longer eligible based on patient's age to complete this topic Hepatitis B Aged Out No longer eligi ble based on patient's age to complete this topic MENINGOCOCCAL (MENACTRA/MENVEO) Aged Out No longer eligible based on patient's age to complete this topic documented as of this encounter Medical Devices Implanted Type Area Cassandra Consultant Device Identifier Shelf Expiration Date Model / Serial / Lot Lens Intraoc 21.5 - [id number] - [id number] Implanted:Qty: 1 on 05/27/2020 by Da Carter MD at [facility] Left: Eye [employer]OM[employer] 09/15/2024 [id number] / [id number] / Lens Intraoc 22.5 - [id number] - [id number] Implanted:Qty: 1 on 06/03/2020 by Da Carter MD at [facility] Right: Eye [employer]OM[employer] 09/15/2024 [id number] / [id number] / [id number] documented as of this encounter Visit Diagnoses Diagnosis Adjustment disorder with depressed mood documented in this encounter Care Teams Patternmaker Hand Relationship Specialty Start Date End Date David Palm MD [address] [place] [address] [place] [address] PCP - General Family Medicine 07/22/15 documented as of this encounter
--- OUTSIDE RECORDS SUMMARY | 2023-10-08 09:27 | External Medical Summary | Summary of Care ---
Author Name Unknown Organization [facility] Address [address] [place] [address] Phone [phone] Care Team Providers Care Orbitread Operator Name Role Phone David Brush MD Primary Care Provider Reason for Visit * Reason Comments Follow Up 6 month follow up. L eft arm today after showering was numb for about 5 minutes. Dizziness very little if any when 1st sitting up in the morning. Some minor edema in feet but nothing worse then prior. Denies chest pain, palpitations and SOB. Encounter Details Date Type Department Care Team (Late st Contact Info) Description 08/23/2023 1:00 PM EST Office Visit Cardiology [address] [place] [address] Frederick Buck PA-C [address] [place] [address] Primary hypertension*; First degree AV block; Dyslipidemia, goal LDL below 70; PAT (paroxysmal atrial tachycardia); Bradycardia, sinus Allergies No known active allergiesdocumented as of this encounter (statuses as of 08/23/2023) Medications Medication Sig Dispensed Refills Start Date End Date Status SendGrid SYSTEM W/DEVICE KITIndications:DM type 2, goal A1c below 7 Use up to four times a day as directed 1 Kit 0 04/08/2014 Active LANCETS MISCIndications:DM type 2, goal A1c below 7 test once a day 3 Box 1 12/31/2014 Active [employer] Verio In Vitro Strip (Glucose Blood)Indications:T ype [...] goal of less than 7.5% ([facility]),Dyslipidemia, goal LDL below 70 Take 1 [...] as of this encounter (statuses as of 08/23/2023) Active Problems Problem Noted Date Diagnosed Date [...] as of this encounter (statuses as of 08/23/2023) Resolved Problems Problem Noted Date Diagnosed Date [...] cecum GI (gastrointestinal bleed) 09/27/2016 09/05/2017 Overview: [facility] 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 158/82 Vitamin D deficiency 07/02/2009 018 Overview: Vitamin D 16.9 Diverticulosis of colon with hemorrhage 02/23/2008 08/31/2012 Overview: Admitted to [facility] with lower GI bleed Acute gastritis with [...] as of this encounter (statuses as of 08/23/2023) Immunizations Name Administration Dates Next Due COVID-19 [...] Sign Reading Time Taken Comments Blood Pressure 108/56 08/23/2023 12:45 PM EST Pulse 76 08/23/2023 12:45 PM EST Temperature - - Respiratory Rate 16 08/23/2023 12:4 5 PM EST Oxygen Saturation - - Inhaled Oxygen Concentration - - Weight 97.9 kg (215 lb 14.4 oz) 023 12:45 PM EST Height - - Body Mass Index 32.59 06/28/2023 3:14 PM EDT documented in this encounter Progress Notes * Frederick Buck PA-C - 08/23/2023 12:43 PM EST SUBJECTIVE: Radha Ureña is a 83 year old followed by Dr. Brush, [facility] [email or web address] program, and Dr. Keanu Villa. He is no longer [facility] by [facility]. Patient notes having some left hand numbness after laying/sleeping on the left side, numbness and tingling type sensation lasting for couple moments then resolving after shaking it out. No issues regarding the left lower extremity, vision, speech, or palpitations at that time. No chest pain, palpitations, unusual shortness of breath, fluid retention, headaches, dizziness, near syncope, syncope, melena, hematochezia, or hematuria. Cardiac issues: Sinus bradycardia 1st degree AV block - off all AV kwabena blocking agents. Paroxysmal atrial tach/SVT noted during stress testing, and outpatient monitor Hypertension Dyslipidemia TIA/CVA Patient hospitalized in February 2022 with episodes of aphasia, possible TIA versus partial complex seizure. 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 Thyroid nodule 12/30/2018 2 cm right lobe TIA (transient ischemic attack) 12/30/2018 [facility] transient right arm weakness TIA (transient ischemic attack) 03/11/2022 transient sx, TIA vs epilepsy. [facility] Tubular adenoma of colon 10/21/2016 cecum Ulnar [...] had GI bleed and was admitted to [facility] COLONOSCOPY, DIAGNOSTIC (RECTUM) 08/2004 to evaluate GI bleed COLONOSCOPY, DIAGNOSTIC (RECTUM) 10/21/2016 adenomatous polyp, repeat 2 yrs/COLONOSCOPY FLEXIBLE PROXIMAL DIAGNOSTIC performed by Richardson Leone MD at [facility] COLONOSCOPY, DIAGNOSTIC (RECTUM) 07/19/2019 5 mm adenomatous polyp at 30 cm, performed by Richardson Leone MD at [facility] CTA HEAD W CONTRAST 12/30/2018 dimunative left vertebral artery with thrombus, large right mastoid effusion, 2 cm right thyroid nodule ECHO, COMPLETE (2D), TRANS-THORACIC 03/15/2019 normal LV size and function, no wall motion abnormalities, EF 60-64%, stage I diastolic dysfunction,similar to 05/03 EEG 03/13/2022 normal EEG during wakefullness EGD, FLEXIBLE, DIAGNOSTIC 09/28/2016 , duodenal erosions/inpt [facility] EGD, FLEXIBLE, W/BIOPSY N/A 09/28/2016 gastric ulcers [...] performed by Da Carter MD at [facility] REMOVE CATARACT, INSERT LENS PROSTH Right 06/03/2020 right EXTRACAPSULAR CATARACT REMOVAL WITH INTRAOCULAR LENS performed by Da Carter MD at [facility] US AAA SCREEN, RADIOLOGY 04/16/2014 2.9 cm max, no AAA US HEAD AND NECK 01/04/2019 [id number] mm Right lobe midpole mildly complex cystic nodule. 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 Employer: [employer] Tobacco Use Smoking status: Former Packs/day: 2.00 Years: 23.00 Additional pack years: 0.00 Total pack years: 46.00 Types: Cigarettes Start date: 1952 Quit date: 10/17/1984 Years since quittin.8 Smokeless tobacco: Former Types: Chew Vaping Use Vaping Use: Never used Substance and Sexual Activity Alcohol use: Yes Alcohol/week: 1.0 standard drink of alcohol Types: 1 12 oz of beer per [...] on file Food Insecurity: No Food Insecurity (06/28/2023) Hunger Vital Sign Worried About Running Out of Food in the Last Year: Never true Ran Out of Food in the Last Year: Never true Transportation Needs: Not on file Physical Activity: Not on file Stress: Not on file Social Connections: Not on file Intimate Partner Violence: Not on file Housing Stability: Not on file Complete Review of Systems is as stated above, negative, or noncontributory. Review of patient's allergies indicates: No Known Allergies Current Outpatient Medications Medication Sig Dispense Refill Social Touch ULTRA SYSTEM W/DEVICE KIT Use up to four times a day as directed 1 Kit 0 LANCETS MISC test once a day 3 Box 1 [facility] In Vitro Strip (Glucose Blood) Use to [...] by mouth in the morning. 90 Tablet1 Atorvastatin Calcium 40 MG Oral Tablet (Lipitor) Take 1 tablet by mouth once daily 90 Tablet 1 Current Facility-Administered Medications Medication Dose Route Frequency Provider Last Rate Last Admin Albuterol Sulfate (Proventil) (2.5 MG/3ML) 0.083% inhalation solution 2.5 mg 2.5 mg Nebulizer Jung Martinez MD 2.5 mg at 01/14/23 1315 Albuterol Sulfate (Proventil) (5 MG/ML) 0.5% *conc* inhalation solution 2.5 mg 2.5 mg Nebulizer Jung Zaragoza MD OBJECTIVE/PHYSICAL EXAMINATION: BP 108/56 | Pulse 76 | Resp 16 | Wt 97.9 kg (215 lb 14.4 oz) | BMI 32.59 kg/m | BSA 2.17 m General: Alert, no distress, comfortable and cooperative Skin: No rash. Eyes: PER. Conjunctiva pink, sclera clear. HENT: Normocephalic. Atraumatic. Neck: No carotid bruits. No JVD. No HJR. Heart: RRR. No murmur. No rub. No gallop. PMI is nondisplaced. Lungs: Clear. Abdomen: +BS. Soft. Nontender. No masses. No organomegaly. Extremities: Trivial edema. No clubbing. No cyanosis Pulses: radial=2/4, posterior tibial=1/4. Limited neurological examination: No focal deficit. Data: March 12, 2022 TTE interpretation summary ([facility], Dr. Guerra): Technically limited. Grossly normal valve structure and function. Previously, the patient had a micro cavitation study that was negative forPFO. Normal size left ventricle. Normal LV systolic function. Ejection fraction 55 to 60%. RV not well visualized. LA not well visualized. RA not well visualized. March 2022 Zio Monitor: Patient had a min HR of 46 bpm, max HR of 118 bpm, and avg HR of 71 bpm. Predominant underlying rhythm was Sinus Rhythm. First Degree AV Block was present. Isolated SVEs were rare (<1.0%), SVE Couplets were rare (<1.0%), and no SVE Triplets were present. Isolated VEs were rare (<1.0%, 121), VE Couplets were rare (<1.0%, 5), and VE Triplets were rare (<1.0%, 4). Final Interpretation: Agree with findings listed above. Rare symptoms correlated with sinus rhythm and supraventricular ectopy. No sustained dysrhythmias recorded Ambulatory EKG monitoring in February 2014, February 2016, December 2018, January 2020, April 2021, and last in March 2022 without atrial fibrillation. EKG performed on February 08, 2023, personally reviewed, revealed sinus rhythm at 73 bpm with a first-degree AV block, low-voltage QRS. QTc 460 ms. When compared to prior available tracings, there is nosignificant change. February 18, 2023 AJAY ([facility]): Bilateral ankle-brachial/toe brachial indices within the range of normal limits. The right ankle-brachial index measured 0.99 and the left ankle-brachial index measured 0.93. The right toe brachial index measured 0.99. The left toe brachial index measured 0.93. Normal waveforms identified. ASSESSMENT: History of bradycardia and 1st degree AV block - off all AV kwabena blocking agents. Asymptomatic. Noovert indication for permanent pacemaker implantation. Paroxysmal atrial tach/SVT noted during stress testing and outpatient monitor. Quiescent, asymptomatic. TIA/CVA. No documented atrial fibrillation thus far. Hypertension. Well controlled. Dyslipidemia. LDL cholesterol 39 mg/dL on 07/08/2023 RECOMMENDATIONS/PLAN: Via shared decision making, will continue as presently prescribed, without change, without further evaluation unless further issues arise. Routine cardiology follow-up, or as needed. ER with emergencies. Frederick Buck PA-C Department of Cardiology I spent a total of 20-29 minutes (exact time 26 mins) on the date of service in preparation, delivery, and documentation of the care provided to Radha Ureña excluding any time spent in the performance of separately billed services. This chart was completed in part utilizing [employer] Speech Voice Recognition Software. Grammatical errors, random word insertions, prounoun errors, and incomplete sentences are an occasional consequence of this system due to software limitations, ambient noise, and hardware issues. Any formal questions or concerns about the content, text, or information contained within the body of this dictation should be directly addressed to the provider for clarification. documented in this encounter Nursing Notes * Jordan Osorio LPN - 08/23/2023 12:44 PM EST Patient identified by full name and date of Chief Complaint Patient presents with Follow Up 6 month follow up. Left arm today after showering was numb for about 5 minutes. Dizziness very little if any when 1st sitting up in the morning. Some minor edema in feet but nothing worse then prior.Denies chest pain, palpitations and SOB. Examination Room: 4 Name: Radha Ureña Date of : (1940). Reason for Visit: 6 month follow up Interim Hospitalization(s): Denies Problems/Concerns: See chief complaint Chest Pain/SOB: Denies [facility] Discussed: Yes [facility] is a way you can talk to your provider online through e-mail. Would you like to sign up? I can activate it for you? ALREADY ACTIVE Patient was instructed to not get up on the exam table until directed and assisted by their provider; patient is to remain seated in the chair/ wheelchair/ exam table for fall prevention and safety reasons. Patient is aware to have assistance to step down off exam table with personnel. Patient voiced full comprehension of instructions. documented in this encounter Plan of Treatment Upcoming Encounters Date Type Department Care Team (Late st Contact Info) Description 01/10/2024 2:30 PM EDT Office Visit Family Medicine [address] [place] [phone] Rebekah Giron, [address] [place] [address] 02/28/2024 1:00 PM EDT Office Visit Cardiology [address] [place] [address] Frederick Buck PADimple [address] [place] [address] 07/04/2024 3:00 PM EDT Nurse Only Ancillary [address] [place] [address] Jodi, Nurse Annual [address] [place] [address] Scheduled Procedures Name Priority Associated Diagnoses Date/Ti me COLONOSCOPY FLEXIBLE PROXIMAL DIAGNOSTIC Recall History of colon polyps Health Maintenance Due Date Last Done Comments Hepatitis B (1 of 3 - Risk 3-dose series) 2000 DTaP,Tdap,and Td Vaccines (2 - Td or Tdap) 06/07/2023 06/07/2013, 02/29/2008 COVID-19 Vaccine ( season) 2023 10/06/2021, 01/24/2021, 01/03/2021 Diabetic Foot [...] this encounter Medical Devices Implanted Type Area Exercise Planner Device Identifier Shelf Expiration Date Model / Serial / Lot Lens Intraoc 21.5 - [id number] - [id number] Implanted:Qty: 1 on 05/27/2020 by Da Carter MD at [facility] Left: Eye [employer]OM[employer] 09/15/2024 [id number] / [id number] / Lens Intraoc 22.5 - [id number] - [id number] Implanted:Qty: 1 on 06/03/2020 by Da Carter MD at [facility] Right: Eye BAUSCH [employer] LOMB 09/15/2024 [id number] / [id number] / [id number] documented as of this encounter Visit Diagnoses Diagnosis Primary hypertension- Primary Unspecified essential hypertension First degree AV block First degree atrioventricular block Dyslipidemia, goal LDL below 70 Other and unspecified hyperlipidemia PAT (paroxysmal atrial tachycardia) Paroxysmal supraventricular tachycardia Bradycardia, sinus Other specified cardiac dysrhythmias documented in this encounter Care Teams Orbitread Operator Relationship Specialty Start Date End Date David Brush MD [address] [place] [address] [place] [id number] PCP - General Family Medicine 07/22/15 documented as of this encounter
--- OUTSIDE RECORDS SUMMARY | 2023-10-08 09:27 | External Medical Summary | Summary of Care ---
Author Name Unknown Organization [facility] Address [address] [place] [address] Phone [phone] Care Team Providers Care Parcel Carrier Name Role Phone David Palm MD Primary Care Provider Reason for Visit * Reason Comments eRx-Medication Refill Encounter Details Date Type Department Care Team (Late st Contact Info) Description 08/31/2023 Refill Family Medicine [address] [phone] David Palm MD [address] [place] [id number] Type 2 diabetes mellitus with hemoglobin A1c goal of less than 7.5% (HCC) Allergies No known active allergiesdocumented as of this encounter (statuses as of 09/01/2023) Medications Medication Sig Dispensed Refills Start Date End Date Status ZenMate SYSTEM W/DEVICE KITIndications:DM type 2, goal A1c [...] Active Benazepril HCl 10 MG Oral Tablet (Lotensin)Indicat ions:Type 2 diabetes mellitus with hemoglobin A1c goal of less than 7.5% (HCC),Hyperlipide tabatha with target LDL less than 100,Primary hypertension Take 1 Tablet by mouth in the morning. 90 Tablet 1 03/30/2023 Active Tamsulosin HCl 0.4 MG Oral Capsule (Flomax)Indicatio ns:BPH without obstruction/lower urinary tract symptoms Take 2 Capsules by mouth in the morning. 180 Capsule 1 03/30/2023 Active Magnesium Oxide 400 MG Oral TabletIndications :Hypomagnesemia Take 1 Tablet by mouth daily. 90 Tablet 3 04/08/2023 Active Citalopram Hydrobromide 20 MG Oral Tablet (CeleXA)Indicatio ns:Adjustment disorder with depressed mood Take 1 Tablet by mouth in the morning. 90 Tablet 1 05/17/2023 Active Atorvastatin Calcium 40 MG Oral Tablet (Lipitor)Indicati ons:Type 2 diabetes mellitus with hemoglobin A1c goal of less than 7.5% (HCC),Dyslipidemi a, goal LDL below 70 Take 1 tablet by mouth once daily 90 Tablet 1 07/06/2023 Active metFORMIN HCl ER 500 MG Oral Tablet Extended Release 24 Hour (Glucophage XR)Indications:Ty pe 2 diabetes mellitus with hemoglobin A1c goal of less than 7.5% (HCC) TAKE 2 TABLETS BY MOUTH IN THE MORNING AND 2 TABS BEFORE BEDTIME 360 Tablet 1 09/01/2023 Active metFORMIN HCl ER 500 MG Oral Tablet Extended Release 24 Hour (Glucophage XR)Indications:Ty pe 2 diabetes mellitus with hemoglobin A1c goal of less than 7.5% (HCC) Take by mouth 2 Tablets in the morning AND 2 Tablets before bedtime. 360 Tablet 3 07/02/2022 09/01/20 23 Discontinued Hospital, Clinic, or Other Facility Administered Medication [...] as of this encounter (statuses as of 09/01/2023) Active Problems Problem Noted Date Diagnosed Date [...] as of this encounter (statuses as of 09/01/2023) Resolved Problems Problem Noted Date Diagnosed Date [...] cecum GI (gastrointestinal bleed) 09/27/2016 09/05/2017 Overview: [facility] 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 158/82 Vitamin D deficiency 07/02/2009 018 Overview: Vitamin D 16.9 Diverticulosis of colon with hemorrhage 02/23/2008 08/31/2012 Overview: Admitted to [place] with lower GI bleed Acute gastritis with [...] as of this encounter (statuses as of 09/01/2023) Immunizations Name Administration Dates Next Due COVID-19 mRNA, LNP-s, No Pre serve, 2-Dose Series ([place]) 10/06/2021,01/24/2021,01/03/2021 Pneumococcal Conjugate Vacc, 13 Valent (Prevnar) [...] encounter Miscellaneous Notes * Telephone Encounter - Kimberly Finley [facility] - 09/01/2023 11:43 AM EST Signed Prescriptions: Disp Refills metFORMIN HCl ER 500 MG Oral Tablet Extend*360 Ta*1 Sig: TAKE 2 TABLETS BY MOUTH IN THE MORNING AND 2 TABS BEFORE BEDTIMEAuthorizing Provider: DAVID PALM AOrethan User: KIMBERLY FINLEY * Telephone Encounter - Jenny Miles [facility] - 08/31/2023 4:21 PM EST Pending Prescriptions: Disp Refills metFORMIN HCl ER 500 MG Oral Tablet Extend*360 Ta*0 Sig: TAKE 2 TABLETS BY MOUTH IN THE MORNING AND 2 TABS BEFORE BEDTIME documented in this encounter Plan of Treatment Upcoming Encounters Date Type Department Care Team (Late st Contact Info) Description 01/10/2024 2:30 PM EDT Office Visit Family Medicine [address] [place] [phone] Kimberly Giron[address] [place] [address] 02/28/2024 1:00 PM EDT Office Visit Cardiology [address] [place] [address] Frederick Buck PA-C [address] [place] [id number] 07/04/2024 3:00 PM EDT Nurse Only Ancillary [address] [place] [address] Jodi, Nurse [address] [place] [address] Scheduled Procedures Name Priority Associated Diagnoses Date/Ti [...] this encounter Medical Devices Implanted Type Area Network Control Operators Supervisor Device Identifier Shelf Expiration Date Model / Serial / Lot Lens Intraoc 21.5 - [id number] - [id number] Implanted:Qty: 1 on 05/27/2020 by Da Carter MD at OR [facility] Left: Eye [employer] 09/15/2024 [id number] / [id number] / Lens Intraoc 22.5 - [id number] - [id number] Implanted:Qty: 1 on 06/03/2020 by Da Carter MD at OR [facility] Right: Eye [employer] 09/15/2024 [id number] / [id number] / [id number] documented as of this encounter Visit Diagnoses Diagnosis Type 2 diabetes mellitus with hemoglobin A1c goal of less than 7.5% (HCC) documented in this encounter Care Teams Parcel Carrier Relationship Specialty Start Date End Date David Palm MD [address] [place] [address] [place] [id number] PCP - General Family Medicine 07/22/15 documented as of this encounter
[2023-10-08] MEDS ORDERED: ONDANSETRON INJ 2 MG/ML 2 ML VIAL IV STA (09:43)
[2023-10-08] MEDS ORDERED: SODIUM CHLORIDE 0.9% 500 ML IV ONE (09:43)
[2023-10-08 10:08] LABS: Basophils # (auto) 0.01 K/uL (0.00-0.20); Basophils % (auto) 0.1 %; Hematocrit (blood only) 41.6 % (42.0-52.0); Hemoglobin 14.5 g/dl (14.0-18.0); Immature Granulocytes # (auto) 0.05 K/uL (0.01-0.20); Immature Granulocytes % (auto) 0.5 %; Lymphocytes # (auto) 0.79 K/uL (1.20-3.40); Lymphocytes % (auto) 7.7 %; Mean Corpuscular Hgb Conc 34.9 g/dL (32.0-36.0); Mean Corpuscular Volume 89.1 fL (80.0-100.0); Mean Platelet Volume 10.3 fL (9.4-12.4); Monocytes % (auto) 9.7 %; Neutrophils # (auto) 8.45 K/uL (1.40-6.50); Platelet Count 200 K/uL (130-400); RDW Coefficient of Variation 13.3 % (11.5-14.5); RDW Standard Deviation 43.8 fL (36.4-46.3); Red Blood Count 4.67 M/uL (4.70-6.10)
[2023-10-08 10:10] LABS: Albumin Level 4.4 gm/dl (3.4-5.0); Bilirubin Direct 0.2 mg/dl (0-0.2); Bilirubin,Total 0.9 mg/dl (0.2-1.0); Calcium 9.3 mg/dl (8.6-10.3); Creatinine Clr Calc Pharmacy 74.2 ml/min; Est GFR (African American) 93.4 ml/min; Est GFR (Non-African American) 80.6 ml/min; Magnesium 1.5 mg/dl (1.7-2.4); Potassium 4.3 mmol/L (3.5-5.1); Total Protein 7.5 gm/dl (6.0-8.3)
[2023-10-08 10:17] LABS: Troponin I High Sensitivity 16.2 pg/ml (0-20)
--- NOTE | 2023-10-08 10:30 | XRay Report ---
XR chest 1V portable CLINICAL HISTORY: Chest pain. COMPARISON STUDY: Chest CT September 23, 2021. Chest radiograph February 13, 2022. FINDINGS: Low lung volumes are again noted. There is no pneumothorax or pleural effusion. Bibasilar o pacities favor atelectasis. Cardiomegaly is unchanged. Mediastinal contours are stable. There is no e vidence for pulmonary edema. IMPRESSION: No acute cardiopulmonary findings. No change in appearance of the chest. ACT 112: Negative or not required by law. Electronically signed by: Ancelmo Carlson M.D. 10/08/2023 10:28 AM
[2023-10-08 10:32] LABS: Partial Thromboplastin Ratio 0.9; Partial Thromboplastin Time 25 Seconds (21-31); Prothrombin Time 10.9 Seconds (9.0-12.0)
[2023-10-08] MEDS ORDERED: MAGNESIUM SULFATE / D5W 1 GM/100 ML BAG IV STA (10:38)
[2023-10-08] MEDS ORDERED: OPTIRAY 320 500ml IV ONE (10:41)
--- NOTE | 2023-10-08 11:14 | CT Scan Report ---
CT OF THE ABDOMEN AND PELVIS WITH CONTRAST CLINICAL HISTORY: Abdominal pain. COMPARISON STUDY: CT of the abdomen and pelvis September 22, 2021. TECHNIQUE: Following IV administration of 90 mL of Optiray, axial images of the abdomen and pelvis we re obtained from the lung bases to the proximal femurs. Images were reviewed in the axial, sagittal, and coronal planes. IV contrast was administered without complication. Automated exposure control wa s utilized for the study. A dose lowering technique was utilized adhering to the principles of ALARA . CT DOSE: 1366.55 mGy.cm FINDINGS: No pneumatosis, free air or portal venous gas is present. There is no biliary or pancreatic ductal patient. No hepatic lesions are present. There is probable hepatic steatosis. Multiple gallst ones within the gallbladder are present. The gallbladder is mildly distended. There is mild perichole cystic infiltration. There is a tiny stone within the cystic duct. Spleen, adrenal glands and pancrea s are unremarkable. Low-attenuation bilateral renal lesions reflect cysts. There is no hydronephrosis . There is no evidence for a bowel obstruction. Colonic diverticulosis is present without evidence fo r acute diverticulitis. The appendix is normal. There is no lymphadenopathy. Major vasculature is pat ent. Bladder is mildly distended. Prostate is enlarged, measuring 5.8 cm in transverse dimension. Med ial lobe of the prostate indents the base of the bladder. IMPRESSION: 1. Cholelithiasis with mild gallbladder distention and pericholecystic stranding. Tiny stone within t he cystic duct. The findings are suspicious for acute cholecystitis. 2. No biliary or pancreatic ductal dilatation. 3. Colonic diverticulosis. No evidence for acute diverticulitis. 4. Enlarged prostate. Mildly distended bladder. No hydronephrosis. ACT 112: Negative or not required by law. Electronically signed by: Ancelmo Carlson M.D. 10/08/2023 11:11 AM
[2023-10-08] MEDS ORDERED: cefTRIAXone SODIUM 2,000 MG/50 ML BAG IV STA (11:28)
[2023-10-08] MEDS ORDERED: metroNIDAZOLE 500 MG/100 ML BAG IV STA (11:28)
--- NOTE | 2023-10-08 12:24 | History & Physical Report ---
Date of Service October 08, 2023 Assessment & Plan (1) Acute cholecystitis due to biliary calculus: Plan: This is an 83 y/o male with DM2, HTN, BPH, GERD, prior CVA and other history as outlined below presents with nausea and vomiting since last night, unable to tolerate oral intake today. Work-up in the ED reveals imaging consistent with possible cholecystitis though LFTs normal, no leukocytosis, afebrile. ED provider discussed case with surgery manager online who recommended observation with conservative management so pt was referred to our service for admission. His BP in the ED was markedly elevated but pt reports missing his chronic benazepril. He is also on 2L O2 to maintain sats. - Observe in PCU due to hypomagnesemia, hypoxia - Mag repleted by ED provider - recheck in the AM - Continue broad-spectrum antibiotics for preseumed cholecystitis but will change to IV Zosyn - Antiemetics - Phenergan ordered since QTC prolonged (avoid ondansetron) - NPO except sips/chips for bowel rest - re-evaluate in the AM - Surgery input appreciated - Labs in the AM - CBC, BMP, Mg, LFTs; repeat BMP and check lactate this afternoon (2) Hypomagnesemia: Plan: Repleted in the ED - recheck in the AM. Monitor in PCU overnight (3) DMII (diabetes mellitus, type 2): Plan: Accuchecks Insulin sliding scale Hold Metformin while admitted A1c in the AM (4) HTN (hypertension): Plan: IV enalapril 2.5 mg x 1 now and re-evaluate (5) Restrictive lung disease: Plan: Incentive spirometry Wean O2 as tolerated (6) GERD without esophagitis: Plan: Continue PPI therapy Plan Holding home meds while NPO - reassess tomorrow Currently on dual anti-platelet therapy due to CVA in February 2022 - pt has a history of recurrent GI bleeds so consider deescalating therapy since >12 months since CVA Pt seen and reviewed with collaborating physician, Dr. Servin. Plan of care discussed and as outlined above. Code Status: Full code DVT Prophylaxis: Lindsey Francois PA-C History of Present Illness Chief Complaint: nausea and vomiting Primary Care Provider: Rebekah Giron, DO This is an 83 y/o male with DM2, HTN, BPH, GERD, prior CVA and other history as outlined below presents with nausea and vomiting since last night, unable to tolerate oral intake today. Pt's brother assisted with the history as patient reports sometimes having trouble remembering details. Pt had his COVID booster on (3 days ago) - that night he reports developing a sensation "like a softball in my chest" with discomfort but no overt pain. The next day, the discomfort was better though not completely resolved. Last night around 10 pm, he started vomiting - continued to vomit intermittently overnight until this morning, couldn't tolerate even sips of water this morning without vomiting so his family called EMS. He was unable to take any of his meds this morning. He noted chills but no documented fevers. He is moving bowels at baseline - last BM was yesterday. No changes in urination. No change in chronic LE edema - admits to consuming salt in his diet so always seems to have a small amount of swelling. Diagnosed with mild restrictive lung disease earlier this year and has prn albuterol inhaler but reports that he rarely uses it. Allergies Allergy/AdvReac Type Severity Reaction Status Date / Time bee venom protein (honey bee) Allergy Unknown Unverified 03/11/22 20:33 Home Medications Medication Instructions Recorded Confirmed Type citalopram 20 mg tablet 20 mg PO DAILY 12/30/18 10/08/23 History tamsulosin 0.4 mg capsule 0.4 mg PO BID 12/30/18 10/08/23 History atorvastatin 40 mg tablet 40 mg PO HS #30 tabs 01/01/19 10/08/23 Rx cholecalciferol (vitamin D3) 25 50 mcg PO DAILY 09/22/21 10/08/23 History mcg (1,000 unit) tablet pantoprazole 40 mg tablet,delayed 40 mg PO QAM #30 tabs 09/24/21 10/08/23 Rx release clopidogrel 75 mg tablet 75 mg PO DAILY 03/11/22 10/08/23 History glucosam 750 mg-chondroi 100 2 tab PO DAILY 03/11/22 10/08/23 History mg-hyalur 1.65 mg-CF borate 108 mg tablet (Move [facility] Weight Wins) aspirin 81 mg tablet,delayed 81 mg PO QAM 30 days #30 tabs 03/14/22 10/08/23 Rx release albuterol sulfate 90 mcg/actuation 2 puff inhalation Q4H PRN Wheezing 10/08/23 10/08/23 History aerosol inhaler benazepril 10 mg tablet 10 mg PO QAM 10/08/23 10/08/23 History gabapentin 100 mg capsule 100 mg PO BID 10/08/23 10/08/23 History magnesium oxide 400 mg (241.3 mg 400 mg PO DAILY 10/08/23 10/08/23 History magnesium) tablet metformin 500 mg tablet,extended 1,000 mg PO AMPM 10/08/23 10/08/23 History release 24 hr Past Med/Surg History Medical History (Updated 10/08/23 @ 13:51 by Julianne Frnacois PA-C) 1st degree AV block PAT (paroxysmal atrial tachycardia) GERD without esophagitis Acute CVA (cerebrovascular accident) Thrombosis of left vertebral artery HTN (hypertension) DMII (diabetes mellitus, type 2) Acute hypoxemic respiratory failure Diverticulitis Depression HLD (hyperlipidemia) BPH (benign prostatic hyperplasia) PUD (peptic ulcer disease) UGIB (upper gastrointestinal bleed) PNA (pneumonia) Asthma Surgical History History of cataract surgery History of colonoscopy with polypectomy History of esophagogastroduodenoscopy (EGD) Family History Father , 71 Heart disease Mother Alzheimer disease Parkinsons disease Social History (Updated 10/08/23 @ 12:45 by Julianne Francois PA-C) Smoking Status: Former smoker Tobacco Type: Cigarettes Hx Alcohol Use: No Hx Substance Use: No Preferred Language: Serbian Communication Ability: Effective Hearing Ability: Hard of Hearing Fractionation Supervisor Required: No Beliefs That Will Affect Care: None marital status: Current Living Situation: Alone current occupational status: retired Feels Safe at Home: Yes Assistive Devices: None Review of Systems Review of Systems: All systems reviewed & are unremarkable except as noted in HPI & below Constitutional: + chills and + anorexia; no fever Respiratory: no cough and no dyspnea Cardiovascular: as per Subjective / HPI and + edema; no syncope Gastrointestinal: as per Subjective / HPI; no blood in stools Genitourinary: no dysuria or no hematuria Integumentary: no yellowing of the skin Neurologic: no falls, no headache(s) and no confusion Physical Exam Physical Exam: Please see physician addendum for details of the physical exam. Results & Data Results & Data Vital Signs (Past 12 Hours) Vital Signs Temp Pulse Pulse Resp BP BP Pulse Ox 10/08/23 12:00 95 H 20 175/106 H 92 10/08/23 10:08 94 H 22 95 10/08/23 09:38 36.9 C 94 H 20 171/111 H 94 10/08/23 09:38 36.9 C 94 H 20 171/111 H 94 10/08/23 09:33 93 H O2 Del Method O2 Flow Rate 10/08/23 12:00 Nasal Cannula 2 10/08/23 10:08 Room Air 10/08/23 09:38 Room Air 10/08/23 09:38 Room Air 10/08/23 09:33 Laboratory Results Laboratory Results - last 24 hr 10/08/23 09:34 WBC 10.30 RBC 4.67 L Hgb 14.5 Hct 41.6 L MCV 89.1 MCH 31.0 MCHC 34.9 RDW Std Deviation 43.8 RDW Coeff of Taan 13.3 Plt Count 200 MPV 10.3 Immature Gran % (Auto) 0.5 Neut % (Auto) 82.0 Lymph % (Auto) 7.7 [place] % (Auto) 9.7 Eos % (Auto) 0.0 Baso % (Auto) 0.1 Neut # (Auto) 8.45 H Lymph # (Auto) 0.79 L [place] # (Auto) 1.00 H Eos # (Auto) 0.00 Baso # (Auto) 0.01 Immature Gran # (Auto) 0.05 PT 10.9 INR 1.0 APTT 25 PTT Ratio 0.9 Sodium 132 L Potassium 4.3 Chloride 97 L Carbon Dioxide 17 L Anion Gap 18 H BUN 17 Creatinine 0.85 Est Cr Clr Drug Dosing 74.2 Est GFR ( Amer) 93.4 Est GFR (Non-Af Amer) 80.6 BUN/Creatinine Ratio 20.0 Glucose 215 H Calcium 9.3 Magnesium 1.5 L Total Bilirubin 0.9 Direct Bilirubin 0.2 AST 19 ALT 26 Alkaline Phosphatase 66 Troponin I High Sens 16.2 Total Protein 7.5 Albumin 4.4 Lipase 16 Diagnostic Findings Abdomen/Pelvis CT 10/08/23 09:44 CT OF THE ABDOMEN AND PELVIS WITH CONTRAST CLINICAL HISTORY: Abdominal pain. COMPARISON STUDY: CT of the abdomen and pelvis September 22, 2021. TECHNIQUE: Following IV administration of 90 mL of Optiray, axial images of the abdomen and pelvis were obtained from the lung bases to the proximal femurs. Images were reviewed in the axial, sagittal, and coronal planes. IV contrast was administered without complication. Automated exposure control was utilized for the study. A dose lowering technique was utilized adhering to the principles of ALARA. CT DOSE: 1366.55 mGy.cm FINDINGS: No pneumatosis, free air or portal venous gas is present. There is no biliary or pancreatic ductal patient. No hepatic lesions are present. There is probable hepatic steatosis. Multiple gallstones within the gallbladder are present. The gallbladder is mildly distended. There is mild pericholecystic infiltration. There is a tiny stone within the cystic duct. Spleen, adrenal glands and pancreas are unremarkable. Low-attenuation bilateral renal lesions reflect cysts. There is no hydronephrosis. There is no evidence for a bowel obstruction. Colonic diverticulosis is present without evidence for acute diverticulitis. The appendix is normal. There is no lymphadenopathy. Major vasculature is patent. Bladder is mildly distended. Prostate is enlarged, measuring 5.8 cm in transverse dimension. Medial lobe of the prostate indents the base of the bladder. IMPRESSION: 1. Cholelithiasis with mild gallbladder distention and pericholecystic stranding. Tiny stone within the cystic duct. The findings are suspicious for acute cholecystitis. 2. No biliary or pancreatic ductal dilatation. 3. Colonic diverticulosis. No evidence for acute diverticulitis. 4. Enlarged prostate. Mildly distended bladder. No hydronephrosis. ACT 112: Negative or not required by law. Electronically signed by: Ancelmo Carlson M.D. 10/08/2023 11:11 AM Chest X-Ray 10/08/23 09:44 XR chest 1V portable CLINICAL HISTORY: Chest pain. COMPARISON STUDY: Chest CT September 23, 2021. Chest radiograph February 13, 2022. FINDINGS: Low lung volumes are again noted. There is no pneumothorax or pleural effusion. Bibasilar opacities favor atelectasis. Cardiomegaly is unchanged. Mediastinal contours are stable. There is no evidence for pulmonary edema. IMPRESSION: No acute cardiopulmonary findings. No change in appearance of the chest. ACT 112: Negative or not required by law. Electronically signed by: Ancelmo Carlson M.D. 10/08/2023 10:28 AM Medications Administered Metronidazole (Flagyl) 500 mg in 100 mls @ 100 mls/hr IV NOW STA Stop: 10/08/23 12:27 Last Admin: 10/08/23 11:35 Dose: 100 mls/hr Documented By: MMG Discontinued Medications Sodium Chloride (Nss) 500 mls @ 999 mls/hr IV .Q31M ONE Stop: 10/08/23 10:13 Last Infusion: 10/08/23 10:55 Dose: Infused Documented By: Admin: 10/08/23 10:05 Dose: 999 mls/hr Documented By: ML Magnesium Sulfate/Dextrose (Magnesium Sulfate / D5w) 1 gm in 100 mls @ 100 mls/hr IV NOW STA Stop: 10/08/23 11:37 Last Infusion: 10/08/23 12:02 Dose: Infused Documented By: Admin: 10/08/23 10:59 Dose: 100 mls/hr Documented By: JANETTE Ceftriaxone Sodium (Rocephin) 2,000 mg in 50 mls @ 100 mls/hr IV NOW STA Stop: 10/08/23 11:57 Last Admin: 10/08/23 12:09 Dose: 100 mls/hr Documented By: JESUS Ioversol (Optiray 320 500ml) 90 ml IV ONCE ONE Stop: 10/08/23 10:42 Last Admin: 10/08/23 10:43 Dose: 90 ml Documented By: JC Ondansetron HCl (Ondansetron Inj 2 Mg/Ml 2 Ml Vial) 4 mg IV NOW STA Stop: 10/08/23 09:44 Last Admin: 10/08/23 10:05 Dose: 4 mg Documented By: ML Supervising Physician Co-Signing Physician Notes I have seen and discussed the case with the collaborating SIMONA. I agree with the above H&P. I have reviewed and confirmed the patients medical history, the findings on physical examination, and the patients diagnosis and treatment plan with Alessandro JARVIS and agree with the information documented. In short, Mr. Nick is an 83 year old with DMTII, HTN, HLD, prior CVA 2021 who is being admitted due to acute abdominal pain in the setting of likely cholecystitis. Patient has experienced over 24 hours of nausea and vomiting, with inability to hold water or medications. Patient's last medications were pm of 10/07. Patient has experienced these symptoms to a lesser degree before. Surgery evaluated, recommended obs and conservative management at this time. Physical exam is notable for pleasant gentleman, no distress on time of exam. CV tachycardic, no MRG. Resp decreased bibasilar breath sounds, otherwise no crackles/wheezing, good air movement. ABD NTND on exam, no nasuea present on exam. No murphys sign elicited. Trace edema in BLE. Imaging revealed Cholelithiasis with mild gallbladder distention and pericholecystic stranding. Tiny stone within the cystic duct. The findings are suspicious for acute cholecystitis. Plan #Nausea and Vomiting #Acute cholecystis -Surgery on consult, plan for conservative mgmt; no correlating transaminitis -Gentle IVF -Hold PO meds until able to tolerate intake -Transition to zosyn for abx (QTc notable prolonged) -Antiemitics prn, avoid qtc prolongating agents -Trend CMP #Hyponatremia #Gap Metabolic Acidosis -Hyponatremia iso vomiting/hyperglycemia -Gap likely in acute vomiting, will obtain lactate -Trend CMP, gentle IVF while NPO #Paroxsymal atria tachycardia, no afib #Chronic 1st degree AV block #HTN #Hypomagnesemia -Replace mag >2.0, monitor on tele -Monitor K and phos, replace prn -Avoid labetolol in setting of block and hydral iso tachy--opt for enalapril and hold PO benazepril Rest of plan as above (3) DMII (diabetes mellitus, type 2) Diabetes mellitus complication status: with other specified complication Diabetes mellitus detention insulin use: without terminal operations manager use Qualified Code(s): E11.69 - Type 2 diabetes mellitus with other specified complication (4) HTN (hypertension) Hypertension type: primary hypertension Qualified Code(s): I10 - Essential (primary) hypertension
[2023-10-08] MEDS ORDERED: CARBOHYDRATES FOR HYPOGLYCEMIA PO PRN (13:08)
[2023-10-08] MEDS ORDERED: GLUCOSE 40% GEL 15 GM TUBE PO PRN (13:08)
[2023-10-08] MEDS ORDERED: GLUCOSE 10 TAB/TUBE PO PRN (13:08)
[2023-10-08] MEDS ORDERED: GLUCAGON FOR INJ 1 MG VIAL SQ PRN (13:08)
[2023-10-08] MEDS ORDERED: DEXTROSE 50% 50 ML SYRINGE IV PRN (13:08)
--- NOTE | 2023-10-08 13:33 | Surgery Consultation ---
Date of Consultation October 08, 2023 Assessment & Plan (1) Acute cholecystitis due to biliary calculus: Assessment: Patient is a 83 years old gentleman presented to ED with 1 day history nausea and vomiting abdominal pain. CT scan diagnosis gallstone possible cholecystitis. plan, medicine team and will admit the patient to hospital for further diagnosis, n.p.o. IV fluid, control pain, iv antibiotic, repeat labs in morning. U/S gallbladder, HIDA scan, D/W possible laparoscopic cholecystectomy, but pt and his brother may want to home for holidays, will F/U. History of Present Illness Reason for Consultation: acute cholecystitis Requesting Physician: Frandy Bill History of Present Illness CC: vomiting HPI : Patient is a 83 years old gentleman with a past medical history of HTN, BPH, PUD, CVA, GERD, diabetes, and asthma. Patient presented to ED with 1 day history nausea and vomiting abdominal pain. Patient started nausea and vomiting last night around 10 PM. The pain located chest and upper abdomen. The pain is dull. Now patient denies any significant abdominal pain. Patient denies fever or chills. pass bowel movement every day, last bowel movement was yesterday. Patient had a CT scan in the ED diagnosis gallstone with possible acute cholecystitis. Allergies Allergy/AdvReac Type Severity Reaction Status Date / Time bee venom protein (honey bee) Allergy Unknown Unverified 03/11/22 20:33 Home Medications Medication Instructions Recorded Confirmed Type citalopram 20 mg tablet 20 mg PO DAILY 12/30/18 10/08/23 History tamsulosin 0.4 mg capsule 0.4 mg PO BID 12/30/18 10/08/23 History atorvastatin 40 mg tablet 40 mg PO HS #30 tabs 01/01/19 10/08/23 Rx cholecalciferol (vitamin D3) 25 50 mcg PO DAILY 09/22/21 10/08/23 History mcg (1,000 unit) tablet pantoprazole 40 mg tablet,delayed 40 mg PO QAM #30 tabs 09/24/21 10/08/23 Rx release clopidogrel 75 mg tablet 75 mg PO DAILY 03/11/22 10/08/23 History glucosam 750 mg-chondroi 100 2 tab PO DAILY 03/11/22 10/08/23 History mg-hyalur 1.65 mg-CF borate 108 mg tablet ([employer]) aspirin 81 mg tablet,delayed 81 mg PO QAM 30 days #30 tabs 03/14/22 10/08/23 Rx release albuterol sulfate 90 mcg/actuation 2 puff inhalation Q4H PRN Wheezing 10/08/23 10/08/23 History aerosol inhaler benazepril 10 mg tablet 10 mg PO QAM 10/08/23 10/08/23 History gabapentin 100 mg capsule 100 mg PO BID 10/08/23 10/08/23 History magnesium oxide 400 mg (241.3 mg 400 mg PO DAILY 10/08/23 10/08/23 History magnesium) tablet metformin 500 mg tablet,extended 1,000 mg PO AMPM 10/08/23 10/08/23 History release 24 hr Patient History Medical History 1st degree AV block PAT (paroxysmal atrial tachycardia) GERD without esophagitis Acute CVA (cerebrovascular accident) Thrombosis of left vertebral artery HTN (hypertension) DMII (diabetes mellitus, type 2) Acute hypoxemic respiratory failure Diverticulitis Depression HLD (hyperlipidemia) BPH (benign prostatic hyperplasia) PUD (peptic ulcer disease) UGIB (upper gastrointestinal bleed) PNA (pneumonia) Asthma Surgical History History of cataract surgery History of colonoscopy with polypectomy History of esophagogastroduodenoscopy (EGD) Family History Father , 71 Heart disease Mother Alzheimer disease Parkinsons disease Social History (Updated 10/08/23 @ 12:45 by Julianne Francois PA-C) Smoking Status: Former smoker Tobacco Type: Cigarettes Hx Alcohol Use: No Hx Substance Use: No Preferred Language: Portuguese Communication Ability: Effective Hearing Ability: Hard of Hearing College Athlete Required: No Beliefs That Will Affect Care: None marital status: Current Living Situation: Alone current occupational status: retired Feels Safe at Home: Yes Assistive Devices: None Review of Systems Constitutional: as per Subjective / HPI Eyes: as per Subjective / HPI Respiratory: Asthma Cardiovascular: Additional Comments: HTN, hyperlipidemia Gastrointestinal: GERD Genitourinary: + problem reported (BPH) Neurologic: CVA Psychiatric: as per Subjective / HPI Endocrine: as per Subjective / HPI Hematologic / Lymphatic: as per Subjective / HPI Physical Exam Constitutional: WD/WN, vitals as above no distress Eyes: PERRL, conjunctivae normal, anicteric sclerae Neck: trachea midline, no thyromegaly Respiratory: normal respiratory effort, lungs clear to auscultation Cardiovascular: RRR, no murmur, no edema Gastrointestinal (Abdomen): soft, NT, ND, BS +. Neurologic: patellar DTR's 2+ bilat, sensation intact Psychiatric: A+Ox3, euthymic affect Results & Data Vital Signs (Past 12 Hours) Vital Signs Temp Pulse Pulse Resp BP BP Pulse Ox 10/08/23 12:00 95 H 20 175/106 H 92 10/08/23 10:08 94 H 22 95 10/08/23 09:38 36.9 C 94 H 20 171/111 H 94 10/08/23 09:38 36.9 C 94 H 20 171/111 H 94 10/08/23 09:33 93 H O2 Del Method O2 Flow Rate 10/08/23 12:00 Nasal Cannula 2 10/08/23 10:08 Room Air 10/08/23 09:38 Room Air 10/08/23 09:38 Room Air 10/08/23 09:33 Laboratory Results Lab Results 10/08/23 Range/Units 09:34 WBC 10.30 (4.8-10.8) K/ul RBC 4.67 L (4.70-6.10) M/uL Hgb 14.5 (14.0-18.0) g/dl Hct 41.6 L (42.0-52.0) % MCV 89.1 (80.0-100.0) fL MCH 31.0 (25.0-34.0) pg MCHC 34.9 (32.0-36.0) g/dL RDW Std Deviation 43.8 (36.4-46.3) fL RDW Coeff of Tana 13.3 (11.5-14.5) % Plt Count 200 (130-400) K/uL MPV 10.3 (9.4-12.4) fL Immature Gran % (Auto) 0.5 % Neut % (Auto) 82.0 % Lymph % (Auto) 7.7 % [place] % (Auto) 9.7 % Eos % (Auto) 0.0 % Baso % (Auto) 0.1 % Neut # (Auto) 8.45 H (1.40-6.50) K/uL Lymph # (Auto) 0.79 L (1.20-3.40) K/uL [place] # (Auto) 1.00 H (0.11-0.59) K/uL Eos # (Auto) 0.00 (0.00-0.50) K/uL Baso # (Auto) 0.01 (0.00-0.20) K/uL Immature Gran # (Auto) 0.05 (0.01-0.20) K/uL PT 10.9 (9.0-12.0) Seconds INR 1.0 (0.9-1.1) APTT 25 (21-31) Seconds PTT Ratio 0.9 Sodium 132 L (136-145) mmol/L Potassium 4.3 (3.5-5.1) mmol/L Chloride 97 L (98-107) mmol/L Carbon Dioxide 17 L (21-32) mmol/L Anion Gap 18 H (3-11) BUN 17 (6-23) mg/dl Creatinine 0.85 (0.6-1.4) mg/dl Est Cr Clr Drug Dosing 74.2 ml/min Est GFR ( Amer) 93.4 ml/min Est GFR (Non-Af Amer) 80.6 ml/min BUN/Creatinine Ratio 20.0 (10-20) Glucose 215 H (70-99(Fasting)) mg/dl Calcium 9.3 (8.6-10.3) mg/dl Magnesium 1.5 L (1.7-2.4) mg/dl Total Bilirubin 0.9 (0.2-1.0) mg/dl Direct Bilirubin 0.2 (0-0.2) mg/dl AST 19 (13-39) U/L ALT 26 (7-52) U/L Alkaline Phosphatase 66 (34-104) U/L Troponin I High Sens 16.2 (0-20) pg/ml Total Protein 7.5 (6.0-8.3) gm/dl Albumin 4.4 (3.4-5.0) gm/dl Lipase 16 (11-82) U/L Diagnostic Findings CT OF THE ABDOMEN AND PELVIS WITH CONTRAST CLINICAL HISTORY: Abdominal pain. COMPARISON STUDY: CT of the abdomen and pelvis September 22, 2021. TECHNIQUE: Following IV administration of 90 mL of Optiray, axial images of the abdomen and pelvis were obtained from the lung bases to the proximal femurs. Images were reviewed in the axial, sagittal, and coronal planes. IV contrast was administered without complication. Automated exposure control was utilized for the study. A dose lowering technique was utilized adhering to the principles of ALARA. CT DOSE: 1366.55 mGy.cm FINDINGS: No pneumatosis, free air or portal venous gas is present. There is no biliary or pancreatic ductal patient. No hepatic lesions are present. There is probable hepatic steatosis. Multiple gallstones within the gallbladder are present. The gallbladder is mildly distended. There is mild pericholecystic infiltration. There is a tiny stone within the cystic duct. Spleen, adrenal glands and pancreas are unremarkable. Low-attenuation bilateral renal lesions reflect cysts. There is no hydronephrosis. There is no evidence for a bowel obstruction. Colonic diverticulosis is present without evidence for acute diverticulitis. The appendix is normal. There is no lymphadenopathy. Major vasculature is patent. Bladder is mildly distended. Prostate is enlarged, measuring 5.8 cm in transverse dimension. Medial lobe of the prostate indents the base of the bladder. IMPRESSION: 1. Cholelithiasis with mild gallbladder distention and pericholecystic stranding. Tiny stone within the cystic duct. The findings are suspicious for acute cholecystitis. 2. No biliary or pancreatic ductal dilatation. 3. Colonic diverticulosis. No evidence for acute diverticulitis. 4. Enlarged prostate. Mildly distended bladder. No hydronephrosis. ACT 112: Negative or not required by law.
[2023-10-08] MEDS ORDERED: PROMETHAZINE HCL 12.5 MG in SODIUM CHLORIDE 0.9% 50 ML IV PRN (13:34)
[2023-10-08] MEDS: LACTATED RINGER'S 1,000 ML IV SCH (14:00)
[2023-10-08] MEDS ORDERED: ENALAPRILAT 1.25 MG in DEXTROSE 5% 25 ML IV ONE (14:00)
[2023-10-08] MEDS ORDERED: ACETAMINOPHEN 325 MG TAB PO PRN (14:05)
[2023-10-08 16:17] LABS: BUN Creatinine Ratio 18.3 (10-20); Calcium 8.7 mg/dl (8.6-10.3); Creatinine Clr Calc Pharmacy 76.9 ml/min; Est GFR (African American) 94.8 ml/min; Est GFR (Non-African American) 81.8 ml/min; Potassium 4.2 mmol/L (3.5-5.1)
[2023-10-08] MEDS ORDERED: INSULIN ASPART PER UNIT CHARGE SC SCH (16:30)
--- NOTE | 2023-10-08 16:57 | Emergency Department Note ---
History of Present Illness General Chief complaint: Illness Stated complaint: DRY MOUTH, ILLNESS Time Seen by Provider: 10/08/23 09:32 History of Present Illness Provider complaint: Eliquis Onset (ago): day(s) 1 83-year-old male presents emergency department with brother for illness. Patient reports he has been having chest pain nausea vomiting and abdominal pain. Patient states his symptoms began after eating peanuts yesterday. Brother concerned that the patient might have diverticulitis. No active chest pain. Patient reports no difficulty breathing. No fevers. No cough. Home Medications Medication Instructions Recorded Confirmed Type citalopram 20 mg tablet 20 mg PO DAILY 12/30/18 10/08/23 History tamsulosin 0.4 mg capsule 0.4 mg PO BID 12/30/18 10/08/23 History atorvastatin 40 mg tablet 40 mg PO HS #30 tabs 01/01/19 10/08/23 Rx cholecalciferol (vitamin D3) 25 50 mcg PO DAILY 09/22/21 10/08/23 History mcg (1,000 unit) tablet pantoprazole 40 mg tablet,delayed 40 mg PO QAM #30 tabs 09/24/21 10/08/23 Rx release clopidogrel 75 mg tablet 75 mg PO DAILY 03/11/22 10/08/23 History glucosam 750 mg-chondroi 100 2 tab PO DAILY 03/11/22 10/08/23 History mg-hyalur 1.65 mg-CF borate 108 mg tablet ([facility]) aspirin 81 mg tablet,delayed 81 mg PO QAM 30 days #30 tabs 03/14/22 10/08/23 Rx release albuterol sulfate 90 mcg/actuation 2 puff inhalation Q4H PRN Wheezing 10/08/23 10/08/23 History aerosol inhaler benazepril 10 mg tablet 10 mg PO QAM 10/08/23 10/08/23 History gabapentin 100 mg capsule 100 mg PO BID 10/08/23 10/08/23 History magnesium oxide 400 mg (241.3 mg 400 mg PO DAILY 10/08/23 10/08/23 History magnesium) tablet metformin 500 mg tablet,extended 1,000 mg PO AMPM 10/08/23 10/08/23 History release 24 hr Allergies Allergy/AdvReac Type Severity Reaction Status Date / Time bee venom protein (honey bee) Allergy Unknown Unverified 03/11/22 20:33 Past Med/Surg History Medical History 1st degree AV block PAT (paroxysmal atrial tachycardia) GERD without esophagitis Acute CVA (cerebrovascular accident) Thrombosis of left vertebral artery HTN (hypertension) DMII (diabetes mellitus, type 2) Acute hypoxemic respiratory failure Diverticulitis Depression HLD (hyperlipidemia) BPH (benign prostatic hyperplasia) PUD (peptic ulcer disease) UGIB (upper gastrointestinal bleed) PNA (pneumonia) Asthma Surgical History History of cataract surgery History of colonoscopy with polypectomy History of esophagogastroduodenoscopy (EGD) Family History Father , 71 Heart disease Mother Alzheimer disease Parkinsons disease Social History Smoking Status: Former smoker Tobacco Type: Cigarettes Second Hand Exposure: No; Do You Dip or Chew Tobacco: No; Tobacco Cessation Education Requested by Patient: No Hx Alcohol Use: No Hx Substance Use: No Preferred Language: Telugu Communication Ability: Effective Hearing Ability: Hard of Hearing [employer] Service Representative Required: No Beliefs That Will Affect Care: None marital status: Current Living Situation: Alone current occupational status: retired Other Information That Helps Us Care for You: No Feels Safe at Home: Yes Safety Concerns: Feels Safe At This Time Assistive Devices: None Physical Exam Vital Signs Vital Signs - 24 hr 10/08/23 09:33 10/08/23 09:38 10/08/23 09:38 Temperature 36.9 C 36.9 C Temperature Source Oral Oral Pulse Rate 93 H 94 H Pulse Rate [Right Finger] 94 H Pulse Rhythm Regular Pulse Rhythm [Right Finger] Regular Pulse Strength Normal Pulse Strength [Right Finger] Normal Respiratory Rate 20 20 Respiratory Effort / Characteristics Non-Labored Spontaneous Non-Labored Spontaneous Respiratory Depth Normal Normal Respiratory Pattern Regular Regular Blood Pressure 171/111 H Blood Pressure [Right Arm] 171/111 H Blood Pressure Mean 131 Blood Pressure Mean [Right Arm] 131 Blood Pressure Position Semi-fowlers Blood Pressure Position [Right Arm] Semi-fowlers Pulse Oximetry 94 94 Oxygen Delivery Method Room Air Room Air Oxygen Flow Rate Sepsis Recent Fever Within 48 Hours No Sepsis New/Unexplained Change in Mental Status N/A Sepsis Action Taken by Nursing No Action Required 10/08/23 10:08 10/08/23 12:00 Temperature Temperature Source Pulse Rate 94 H Pulse Rate [Right Finger] 95 H Pulse Rhythm Regular Pulse Rhythm [Right Finger] Pulse Strength Pulse Strength [Right Finger] Respiratory Rate 22 20 Respiratory Effort / Characteristics Respiratory Depth Normal Respiratory Pattern Blood Pressure Blood Pressure [Right Arm] 175/106 H Blood Pressure Mean Blood Pressure Mean [Right Arm] 129 Blood Pressure Position Blood Pressure Position [Right Arm] Lying Pulse Oximetry 95 92 Oxygen Delivery Method Room Air Nasal Cannula Oxygen Flow Rate 2 Sepsis Recent Fever Within 48 Hours Sepsis New/Unexplained Change in Mental Status Sepsis Action Taken by Nursing Physical Exam GENERAL: She is oriented to person, place, and time. She appears well-developed and well-nourished. She does not appear distressed. HENT: Exam performed. -Head: Normocephalic and atraumatic. -Right Ear: External ear normal. No mastoid erythema -Left Ear: External ear normal. No mastoid erythema -Mouth/Throat: The oropharynx is clear and moist. No trismus in the jaw. No dental abscesses or uvula swelling. No oropharyngeal exudate or tonsillar abscesses. EYES: Conjunctivae and EOM are normal.Right eye exhibits no discharge. Left eye exhibits no discharge. No scleral icterus. NECK: Normal range of motion. Neck supple. No JVD present. No tracheal deviation and normal range of motion present. CV: Normal rate, regular rhythm, normal heart sounds and intact distal pulses. There is no peripheral edema. Palpable radial pulses bue. PULM/CHEST: Effort normal and breath sounds normal. No respiratory distress. No stridor. She has no wheezes. She has no rales. -Chest Wall: She exhibits no tenderness. ABD: The abdomen is soft. Bowel sounds are normal. She has no distension. No mass is present. There is diffuse tenderness to palpation. There is no rebound, no guarding, no Kapoor's sign and no tenderness at McBurney's point. Rovsig negative MUSC/SKEL: Normal range of motion. There is no peripheral edema, tenderness or deformity. NEURO: Motor and sensation grossly intact. SKIN: Skin is warm and dry. She is not diaphoretic. PSYCH: She has a normal mood and affect. Behavior is normal. Judgment and thought content normal. Course Course 09: The patient was evaluated in room B7. A complete history and physical exam was performed Cardiac monitoring: An order was placed for continuous cardiac monitoring. The monitor shows a rate of 90 with sinus rhythm interpreted by me 1200: Vital signs stable. Imaging shows cholecystitis. Labs are unremarkable. Discussed case with on-call general surgery Dr. Echevarria who stated to admit to medicine. IV antibiotics ordered for the patient. Administered Medications Lactated Ringer's (Lr) 1,000 mls @ 80 mls/hr IV .[id number] MATT Stop: 11/07/23 12:59 Last Admin: 10/08/23 14:00 Dose: 80 mls/hr Documented By: ADDY Promethazine HCl 12.5 mg/ (Sodium Chloride) 50.5 mls @ 202 mls/hr IV Q6H PRN PRN Reason: Nausea And Vomiting Stop: 11/07/23 13:33 Last Infusion: 10/08/23 15:31 Dose: Infused Documented By: Admin: 10/08/23 15:16 Dose: 202 mls/hr Documented By: ADDY Piperacillin Sod/Tazobactam (Sod 4.5 gm/ Dextrose) 100 mls @ 200 mls/hr IV NOW ONE; Protocol Stop: 10/08/23 17:29 Last Admin: 10/08/23 15:35 Dose: 200 mls/hr Documented By: ADDY Discontinued Medications Sodium Chloride (Nss) 500 mls @ 999 mls/hr IV .Q31M ONE Stop: 10/08/23 10:13 Last Infusion: 10/08/23 10:55 Dose: Infused Documented By: Admin: 10/08/23 10:05 Dose: 999 mls/hr Documented By: ML Magnesium Sulfate/Dextrose (Magnesium Sulfate / D5w) 1 gm in 100 mls @ 100 mls/hr IV NOW STA Stop: 10/08/23 11:37 Last Infusion: 10/08/23 12:02 Dose: Infused Documented By: Admin: 10/08/23 10:59 Dose: 100 mls/hr Documented By: CAW Ceftriaxone Sodium (Rocephin) 2,000 mg in 50 mls @ 100 mls/hr IV NOW STA Stop: 10/08/23 11:57 Last Infusion: 10/08/23 13:23 Dose: Infused Documented By: Admin: 10/08/23 12:09 Dose: 100 mls/hr Documented By: JESUS Metronidazole (Flagyl) 500 mg in 100 mls @ 100 mls/hr IV NOW STA Stop: 10/08/23 12:27 Last Infusion: 10/08/23 13:23 Dose: Infused Documented By: Admin: 10/08/23 11:35 Dose: 100 mls/hr Documented By: JESUS Enalaprilat 1.25 mg/ Dextrose 26 mls @ 100 mls/hr IV ONE ONE Stop: 10/08/23 14:15 Last Infusion: 10/08/23 14:16 Dose: Infused Documented By: Admin: 10/08/23 14:00 Dose: 100 mls/hr Documented By: ADDY Ioversol (Optiray 320 500ml) 90 ml IV ONCE ONE Stop: 10/08/23 10:42 Last Admin: 10/08/23 10:43 Dose: 90 ml Documented By: JC Ondansetron HCl (Ondansetron Inj 2 Mg/Ml 2 Ml Vial) 4 mg IV NOW STA Stop: 10/08/23 09:44 Last Admin: 10/08/23 10:05 Dose: 4 mg Documented By: TANNER Medical Decision Making Laboratory Data Attestation: I reviewed the patient's lab results. 10/08/23 09:34 10/08/23 15:47 Lab Results 10/08/23 Range/Units 09:34 WBC 10.30 (4.8-10.8) K/ul RBC 4.67 L (4.70-6.10) M/uL Hgb 14.5 (14.0-18.0) g/dl Hct 41.6 L (42.0-52.0) % MCV 89.1 (80.0-100.0) fL MCH 31.0 (25.0-34.0) pg MCHC 34.9 (32.0-36.0) g/dL RDW Std Deviation 43.8 (36.4-46.3) fL RDW Coeff of Tana 13.3 (11.5-14.5) % Plt Count 200 (130-400) K/uL MPV 10.3 (9.4-12.4) fL Immature Gran % (Auto) 0.5 % Neut % (Auto) 82.0 % Lymph % (Auto) 7.7 % [place] % (Auto) 9.7 % Eos % (Auto) 0.0 % Baso % (Auto) 0.1 % Neut # (Auto) 8.45 H (1.40-6.50) K/uL Lymph # (Auto) 0.79 L (1.20-3.40) K/uL [place] # (Auto) 1.00 H (0.11-0.59) K/uL Eos # (Auto) 0.00 (0.00-0.50) K/uL Baso # (Auto) 0.01 (0.00-0.20) K/uL Immature Gran # (Auto) 0.05 (0.01-0.20) K/uL PT 10.9 (9.0-12.0) Seconds INR 1.0 (0.9-1.1) APTT 25 (21-31) Seconds PTT Ratio 0.9 Sodium 132 L (136-145) mmol/L Potassium 4.3 (3.5-5.1) mmol/L Chloride 97 L (98-107) mmol/L Carbon Dioxide 17 L (21-32) mmol/L Anion Gap 18 H (3-11) BUN 17 (6-23) mg/dl Creatinine 0.85 (0.6-1.4) mg/dl Est Cr Clr Drug Dosing 74.2 ml/min Est GFR ( Amer) 93.4 ml/min Est GFR (Non-Af Amer) 80.6 ml/min BUN/Creatinine Ratio 20.0 (10-20) Glucose 215 H (70-99(Fasting)) mg/dl Calcium 9.3 (8.6-10.3) mg/dl Magnesium 1.5 L (1.7-2.4) mg/dl Total Bilirubin 0.9 (0.2-1.0) mg/dl Direct Bilirubin 0.2 (0-0.2) mg/dl AST 19 (13-39) U/L ALT 26 (7-52) U/L Alkaline Phosphatase 66 (34-104) U/L Troponin I High Sens 16.2 (0-20) pg/ml Total Protein 7.5 (6.0-8.3) gm/dl Albumin 4.4 (3.4-5.0) gm/dl Lipase 16 (11-82) U/L Imaging Data Radiologist's Impression: Abdomen/Pelvis CT 10/08/23 09:44 CT OF THE ABDOMEN AND PELVIS WITH CONTRAST CLINICAL HISTORY: Abdominal pain. COMPARISON STUDY: CT of the abdomen and pelvis September 22, 2021. TECHNIQUE: Following IV administration of 90 mL of Optiray, axial images of the abdomen and pelvis were obtained from the lung bases to the proximal femurs. Images were reviewed in the axial, sagittal, and coronal planes. IV contrast was administered without complication. Automated exposure control was utilized for the study. A dose lowering technique was utilized adhering to the principles of ALARA. CT DOSE: 1366.55 mGy.cm FINDINGS: No pneumatosis, free air or portal venous gas is present. There is no biliary or pancreatic ductal patient. No hepatic lesions are present. There is probable hepatic steatosis. Multiple gallstones within the gallbladder are present. The gallbladder is mildly distended. There is mild pericholecystic infiltration. There is a tiny stone within the cystic duct. Spleen, adrenal glands and pancreas are unremarkable. Low-attenuation bilateral renal lesions reflect cysts. There is no hydronephrosis. There is no evidence for a bowel obstruction. Colonic diverticulosis is present without evidence for acute diverticulitis. The appendix is normal. There is no lymphadenopathy. Major vasculature is patent. Bladder is mildly distended. Prostate is enlarged, measuring 5.8 cm in transverse dimension. Medial lobe of the prostate indents the base of the bladder. IMPRESSION: 1. Cholelithiasis with mild gallbladder distention and pericholecystic stranding. Tiny stone within the cystic duct. The findings are suspicious for acute cholecystitis. 2. No biliary or pancreatic ductal dilatation. 3. Colonic diverticulosis. No evidence for acute diverticulitis. 4. Enlarged prostate. Mildly distended bladder. No hydronephrosis. ACT 112: Negative or not required by law. Electronically signed by: Ancelmo Carlson M.D. 10/08/2023 11:11 AM Chest X-Ray 10/08/23 09:44 XR chest 1V portable CLINICAL HISTORY: Chest pain. COMPARISON STUDY: Chest CT September 23, 2021. Chest radiograph February 13, 2022. FINDINGS: Low lung volumes are again noted. There is no pneumothorax or pleural effusion. Bibasilar opacities favor atelectasis. Cardiomegaly is unchanged. Mediastinal contours are stable. There is no evidence for pulmonary edema. IMPRESSION: No acute cardiopulmonary findings. No change in appearance of the chest. ACT 112: Negative or not required by law. Electronically signed by: Ancelmo Carlson M.D. 10/08/2023 10:28 AM ECG Data Attestation: I personally reviewed and interpreted this ECG as follows: Indication: + abdominal pain Rate (beats per minute): 93 Rhythm: + normal sinus ECG ST segments: + Normal ST segments Additional Comments: [place] 232 QRS 74 QTc 609. [facility] Narrative 0932: The patient was evaluated in room B7. A complete history and physical exam was performed Cardiac monitoring: An order was placed for continuous cardiac monitoring. The monitor shows a rate of 90 with sinus rhythm interpreted by me 1200: Vital signs stable. Imaging shows cholecystitis. Labs are unremarkable. Discussed case with on-call general surgery Dr. Echevarria who stated to admit to medicine. IV antibiotics ordered for the patient. Impression & Plan Cholecystitis Discharge Plan Visit Data Chief Complaint: Illness Stated Complaint: DRY MOUTH, ILLNESS ED Provider: Amadou Chew Discharge Problem: Cholecystitis Patient Disposition: Admitted As Inpatient Discharge Instructions Interventions: ED Discharge Assessment Last Done: 10/08/23 13:43
[2023-10-08] MEDS ORDERED: PIPER/TAZO 4.5g in D5W MINI-B 100 ML IV ONE (17:00)
[2023-10-08] MEDS ORDERED: Nursing to Pharmacy Communication SCH (17:30)
[2023-10-08] MEDS: INSULIN ASPART PER UNIT CHARGE SC SCH (18:16)
--- NOTE | 2023-10-08 18:19 | Ultrasound Report ---
US liver CLINICAL HISTORY: Cholecystitis. COMPARISON STUDY: CT of the abdomen and pelvis performed earlier today. FINDINGS: No hepatic lesions are identified. There is no biliary ductal dilatation. The gallbladder i s moderately distended. There is mild gallbladder wall thickening. The wall measures 4 mm in thicknes s. Stones and sludge within the gallbladder are present. No sonographic Kapoor sign was elicited. Becerra creatic body is normal. Head and tail are obscured. There is no right hydronephrosis. IMPRESSION: 1. Cholelithiasis with moderate gallbladder distention and mild gallbladder wall thickening. No sonog raphic Kapoor sign. Acute cholecystitis cannot be excluded. Nuclear medicine hepatobiliary scan could be obtained for further evaluation. 2. No biliary ductal dilatation. ACT 112: Negative or not required by law. Electronically signed by: Ancelmo Carlson M.D. 10/08/2023 6:18 PM
[2023-10-08] MEDS: PIPERACILLIN/TAZOBACTAM 4.5 GM in DEXTROSE 5% MINI-B 100 ML IV SCH (23:05)
[2023-10-09] MEDS: INSULIN ASPART PER UNIT CHARGE SC SCH ×2 (00:58→08:07)
[2023-10-09] MEDS ORDERED: LORazepam 2 MG/1 ML VIAL IM STA (02:58)
[2023-10-09] MEDS ORDERED: LORazepam 1 MG/1 ML SYR ED Inj Use IM STA (03:01)
[2023-10-09] MEDS: MAGNESIUM SULFATE / D5W 1 GM/100 ML BAG IV SCH ×2 (03:31→06:09)
[2023-10-09 04:56] LABS: Basophils # (auto) 0.03 K/uL (0.00-0.20); Basophils % (auto) 0.3 %; Hematocrit (blood only) 39.4 % (42.0-52.0); Immature Granulocytes # (auto) 0.05 K/uL (0.01-0.20); Immature Granulocytes % (auto) 0.5 %; Lymphocytes # (auto) 0.26 K/uL (1.20-3.40); Lymphocytes % (auto) 2.8 %; Mean Corpuscular Hemoglobin 31.6 pg (25.0-34.0); Mean Corpuscular Hgb Conc 35.5 g/dL (32.0-36.0); Mean Corpuscular Volume 88.9 fL (80.0-100.0); Mean Platelet Volume 10.2 fL (9.4-12.4); Monocytes # (auto) 0.63 K/uL (0.11-0.59); Monocytes % (auto) 6.9 %; Neutrophils # (auto) 8.16 K/uL (1.40-6.50); Neutrophils % (auto) 89.5 %; Platelet Count 161 K/uL (130-400); RDW Coefficient of Variation 13.4 % (11.5-14.5); Red Blood Count 4.43 M/uL (4.70-6.10); White Blood Count 9.13 K/ul (4.8-10.8)
[2023-10-09] MEDS ORDERED: VANCOMYCIN CONSULT ACTIVE PRN (05:01)
[2023-10-09 05:13] LABS: Albumin Level 3.8 gm/dl (3.4-5.0); BUN Creatinine Ratio 14.6 (10-20); Bilirubin,Total 3.2 mg/dl (0.2-1.0); Calcium 8.6 mg/dl (8.6-10.3); Creatinine Clr Calc Pharmacy 48.5 ml/min; Est GFR (African American) 58.5 ml/min; Est GFR (Non-African American) 50.5 ml/min; Magnesium 1.7 mg/dl (1.7-2.4); Potassium 3.4 mmol/L (3.5-5.1); Total Protein 6.6 gm/dl (6.0-8.3)
[2023-10-09] MEDS ORDERED: SODIUM CHLORIDE 0.9% 1,000 ML IV SCH ×2 (05:15)
[2023-10-09] MEDS ORDERED: VANCOMYCIN HCL 2,000 MG in SODIUM CHLORIDE 0.9% 500 ML IV ONE (06:00)
[2023-10-09] MEDS ORDERED: MAGNESIUM SULFATE / D5W 1 GM/100 ML BAG IV ONE (07:30)
[2023-10-09] MEDS: LACTATED RINGER'S 1,000 ML IV SCH (07:55)
[2023-10-09] MEDS: PIPERACILLIN/TAZOBACTAM 4.5 GM in DEXTROSE 5% MINI-B 100 ML IV SCH (08:07)
--- NOTE | 2023-10-09 08:28 | CT Scan Report ---
HEAD CT NONCONTRAST CT DOSE: 688.24 mGy.cm HISTORY: Altered mental status. Fall. TECHNIQUE: Multiaxial CT images of the head were performed without the use of intravenous contrast. A utomated exposure control was utilized for this study. A dose lowering technique was utilized adheri ng to the principles of ALARA. Comparison: Head CT 03/13/2022. Findings: The paranasal sinuses and left mastoid air cells are clear. Moderate right mastoid effusion is similar to the prior study. The calvarium and skull base are intact. There is no mass, hematoma, midline shift, acute infarct. White matter hypodensity is nonspecific but suggestive of microvascular ischemic change. The ventricles and sulci demonstrate mild age-related involutional changes. Impression: No significant change compared to the prior study. No acute intracranial abnormality. ACT 112: Negative or not required by law. Electronically signed by: Abhilash Cruz M.D. 10/09/2023 8:25 AM
--- NOTE | 2023-10-09 08:48 | Surgery Progress Note ---
Date of Service October 09, 2023 Assessment & Plan (1) Acute cholecystitis due to biliary calculus: Plan: Assessment: Patient is a 83 years old gentleman presented to ED with 1 day history nausea and vomiting abdominal pain. CT scan diagnosis gallstone possibl e cholecystitis. plan, medicine team and will admit the patient to hospital for further diagnosis, n.p.o. IV fluid, control pain, iv antibiotic, repeat labs in morning. U/S gallbladder, HIDA scan, D/W possible laparoscopic cholecystectomy, but pt and his brother may want to home for holidays, will F/U. 10/09/2023 8:50 AM pt is stable, LFTs up. most likely CBD stone, Please consult GI for ERCP, pt may need to transfer to higher level care if no ERCP doctor available at this hospital at this weekend. D/W Medicine team. will F/U. Admission and Anticipated Discharge Date Admission Date: October 08, 2023 Subjective pt is stable over night, no significant abdominal pain, no fever, ( T) bilirubin up to 3.2, most likely CBD stone. Review of Systems Constitutional: as per Subjective / HPI Eyes: as per Subjective / HPI Respiratory: Asthma Cardiovascular: Additional Comments: HTN, hyperlipidemia Gastrointestinal: GERD Genitourinary: + problem reported (BPH) Neurologic: CVA Psychiatric: as per Subjective / HPI Endocrine: as per Subjective / HPI Hematologic / Lymphatic: as per Subjective / HPI Physical Exam Constitutional: WD/WN, vitals as above Eyes: PERRL, conjunctivae normal, anicteric sclerae Neck: trachea midline, no thyromegaly Respiratory: normal respiratory effort, lungs clear to auscultation Cardiovascular: RRR, no murmur, no edema Gastrointestinal (Abdomen): soft, NT, ND. BS +. Neurologic: patellar DTR's 2+ bilat, sensation intact Psychiatric: A+Ox3, euthymic affect Results & Data Vital Signs (Past 12 Hours) Vital Signs Temp Pulse Pulse Resp BP Pulse Ox O2 Del Method 10/09/23 08:03 36.7 C 92 H 18 177/90 H 90 Room Air 10/09/23 07:53 89 10/09/23 03:00 36.6 C 100 H 20 100/60 92 Nasal Cannula 10/08/23 23:00 36.9 C 89 16 160/91 H 91 Nasal Cannula 10/08/23 22:00 96 H 10/08/23 21:00 Room Air Laboratory Results Lab Results 10/08/23 10/08/23 10/08/23 Range/Units 09:34 15:47 18:12 WBC 10.30 (4.8-10.8) K/ul RBC 4.67 L (4.70-6.10) M/uL Hgb 14.5 (14.0-18.0) g/dl Hct 41.6 L (42.0-52.0) % MCV 89.1 (80.0-100.0) fL MCH 31.0 (25.0-34.0) pg MCHC 34.9 (32.0-36.0) g/dL RDW Std Deviation 43.8 (36.4-46.3) fL RDW Coeff of Tana 13.3 (11.5-14.5) % Plt Count 200 (130-400) K/uL MPV 10.3 (9.4-12.4) fL Immature Gran % (Auto) 0.5 % Neut % (Auto) 82.0 % Lymph % (Auto) 7.7 % [place] % (Auto) 9.7 % Eos % (Auto) 0.0 % Baso % (Auto) 0.1 % Neut # (Auto) 8.45 H (1.40-6.50) K/uL Lymph # (Auto) 0.79 L (1.20-3.40) K/uL [place] # (Auto) 1.00 H (0.11-0.59) K/uL Eos # (Auto) 0.00 (0.00-0.50) K/uL Baso # (Auto) 0.01 (0.00-0.20) K/uL Immature Gran # (Auto) 0.05 (0.01-0.20) K/uL PT 10.9 (9.0-12.0) Seconds INR 1.0 (0.9-1.1) APTT 25 (21-31) Seconds PTT Ratio 0.9 Sodium 132 L 130 L (136-145) mmol/L Potassium 4.3 4.2 (3.5-5.1) mmol/L Chloride 97 L 96 L (98-107) mmol/L Carbon Dioxide 17 L 22 (21-32) mmol/L Anion Gap 18 H 12 H (3-11) BUN 17 15 (6-23) mg/dl Creatinine 0.85 0.82 (0.6-1.4) mg/dl Est Cr Clr Drug Dosing 74.2 76.9 ml/min Est GFR ( Amer) 93.4 94.8 ml/min Est GFR (Non-Af Amer) 80.6 81.8 ml/min BUN/Creatinine Ratio 20.0 18.3 (10-20) Glucose 215 H 197 H (70-99(Fasting)) mg/dl POC Glucose 264 H (70-99) mg/dl Lactate 2.0 (0.4-2.0) mmol/L Calcium 9.3 8.7 (8.6-10.3) mg/dl Magnesium 1.5 L (1.7-2.4) mg/dl Total Bilirubin 0.9 (0.2-1.0) mg/dl Direct Bilirubin 0.2 (0-0.2) mg/dl AST 19 (13-39) U/L ALT 26 (7-52) U/L Alkaline Phosphatase 66 (34-104) U/L Troponin I High Sens 16.2 (0-20) pg/ml Total Protein 7.5 (6.0-8.3) gm/dl Albumin 4.4 (3.4-5.0) gm/dl Lipase 16 (11-82) U/L 10/08/23 10/09/23 10/09/23 Range/Units 23:58 04:43 06:43 WBC 9.13 (4.8-10.8) K/ul RBC 4.43 L (4.70-6.10) M/uL Hgb 14.0 (14.0-18.0) g/dl Hct 39.4 L (42.0-52.0) % MCV 88.9 (80.0-100.0) fL MCH 31.6 (25.0-34.0) pg MCHC 35.5 (32.0-36.0) g/dL RDW Std Deviation 44.0 (36.4-46.3) fL RDW Coeff of Tana 13.4 (11.5-14.5) % Plt Count 161 (130-400) K/uL MPV 10.2 (9.4-12.4) fL Immature Gran % (Auto) 0.5 % Neut % (Auto) 89.5 % Lymph % (Auto) 2.8 % Renville % (Auto) 6.9 % Eos % (Auto) 0.0 % Baso % (Auto) 0.3 % Neut # (Auto) 8.16 H (1.40-6.50) K/uL Lymph # (Auto) 0.26 L (1.20-3.40) K/uL Ren[place] # (Auto) 0.63 H (0.11-0.59) K/uL Eos # (Auto) 0.00 (0.00-0.50) K/uL Baso # (Auto) 0.03 (0.00-0.20) K/uL Immature Gran # (Auto) 0.05 (0.01-0.20) K/uL PT (9.0-12.0) Seconds INR (0.9-1.1) APTT (21-31) Seconds PTT Ratio Sodium 131 L (136-145) mmol/L Potassium 3.4 L (3.5-5.1) mmol/L Chloride 97 L (98-107) mmol/L Carbon Dioxide 20 L (21-32) mmol/L Anion Gap 14 H (3-11) BUN 19 (6-23) mg/dl Creatinine 1.30 D (0.6-1.4) mg/dl Est Cr Clr Drug Dosing 48.5 ml/min Est GFR ( Amer) 58.5 ml/min Est GFR (Non-Af Amer) 50.5 ml/min BUN/Creatinine Ratio 14.6 (10-20) Glucose 214 H (70-99(Fasting)) mg/dl POC Glucose 183 H 201 H (70-99) mg/dl Lactate 6.0 H* (0.4-2.0) mmol/L Calcium 8.6 (8.6-10.3) mg/dl Magnesium 1.7 (1.7-2.4) mg/dl Total Bilirubin 3.2 H D (0.2-1.0) mg/dl Direct Bilirubin 2.0 H (0-0.2) mg/dl AST 380 H (13-39) U/L ALT 203 H (7-52) U/L Alkaline Phosphatase 104 (34-104) U/L Troponin I High Sens (0-20) pg/ml Total Protein 6.6 (6.0-8.3) gm/dl Albumin 3.8 (3.4-5.0) gm/dl Lipase (11-82) U/L 10/09/23 Range/Units 07:16 WBC (4.8-10.8) K/ul RBC (4.70-6.10) M/uL Hgb (14.0-18.0) g/dl Hct (42.0-52.0) % MCV (80.0-100.0) fL MCH (25.0-34.0) pg MCHC (32.0-36.0) g/dL RDW Std Deviation (36.4-46.3) fL RDW Coeff of Tana (11.5-14.5) % Plt Count (130-400) K/uL MPV (9.4-12.4) fL Immature Gran % (Auto) % Neut % (Auto) % Lymph % (Auto) % [place] % (Auto) % Eos % (Auto) % Baso % (Auto) % Neut # (Auto) (1.40-6.50) K/uL Lymph # (Auto) (1.20-3.40) K/uL [place] # (Auto) (0.11-0.59) K/uL Eos # (Auto) (0.00-0.50) K/uL Baso # (Auto) (0.00-0.20) K/uL Immature Gran # (Auto) (0.01-0.20) K/uL PT (9.0-12.0) Seconds INR (0.9-1.1) APTT (21-31) Seconds PTT Ratio Sodium (136-145) mmol/L Potassium (3.5-5.1) mmol/L Chloride (98-107) mmol/L Carbon Dioxide (21-32) mmol/L Anion Gap (3-11) BUN (6-23) mg/dl Creatinine (0.6-1.4) mg/dl Est Cr Clr Drug Dosing ml/min Est GFR ( Amer) ml/min Est GFR (Non-Af Amer) ml/min BUN/Creatinine Ratio (10-20) Glucose (70-99(Fasting)) mg/dl POC Glucose (70-99) mg/dl Lactate 2.6 H* (0.4-2.0) mmol/L Calcium (8.6-10.3) mg/dl Magnesium (1.7-2.4) mg/dl Total Bilirubin (0.2-1.0) mg/dl Direct Bilirubin (0-0.2) mg/dl AST (13-39) U/L ALT (7-52) U/L Alkaline Phosphatase (34-104) U/L Troponin I High Sens (0-20) pg/ml Total Protein (6.0-8.3) gm/dl Albumin (3.4-5.0) gm/dl Lipase (11-82) U/L Diagnostic Findings US liver CLINICAL HISTORY: Cholecystitis. COMPARISON STUDY: CT of the abdomen and pelvis performed earlier today. FINDINGS: No hepatic lesions are identified. There is no biliary ductal dilatation. The gallbladder is moderately distended. There is mild gallbladder wall thickening. The wall measures 4 mm in thickness. Stones and sludge within the gallbladder are present. No sonographic Kapoor sign was elicited. Pancreatic body is normal. Head and tail are obscured. There is no right hydronephrosis. IMPRESSION: 1. Cholelithiasis with moderate gallbladder distention and mild gallbladder wall thickening. No sonographic Kapoor sign. Acute cholecystitis cannot be excluded. Nuclear medicine hepatobiliary scan could be obtained for further evaluation. 2. No biliary ductal dilatation.
[2023-10-09] MEDS ORDERED: ENOXAPARIN INJ 40 MG/0.4 ML SYR SQ SCH (09:00)
[2023-10-09 09:07] LABS: Appearance Urine Cloudy (Clear); Bacteria Urine Automated Negative (Negative); Blood Urine 2+ (Negative); Color Urine Dark Yellow; Epithelial Cell Urine Auto >30 /lpf (0-5); Glucose Urine UA 2+ (Negative); Ketones Urine 2+ (Negative); Leukocyte Esterase Urine Trace (Negative); Nitrite Urine Negative (Negative); Protein Urine 2+ (Negative); Specific Gravity Urine 1.027 (1.000-1.030); Urobilinogen Urine Negative (Negative); pH Urine 5.5 (4.5-7.5)
[2023-10-09 09:08] LABS: Bilirubin Urine 1+ (Negative)
--- NOTE | 2023-10-09 09:08 | Discharge Summary ---
Date of Service October 09, 2023 Admission HPI Per Admitting Provider This is an 83 y/o male with DM2, HTN, BPH, GERD, prior CVA and other history as outlined below presents with nausea and vomiting since last night, unable to tolerate oral intake today. Pt's brother assisted with the history as patient reports sometimes having trouble remembering details. Pt had his COVID booster on (3 days ago) - that night he reports developing a sensation "like a softball in my chest" with discomfort but no overt pain. The next day, the discomfort was better though not completely resolved. Last night around 10 pm, he started vomiting - continued to vomit intermittently overnight until this morning, couldn't tolerate even sips of water this morning without vomiting so his family called EMS. He was unable to take any of his meds this morning. He noted chills but no documented fevers. He is moving bowels at baseline - last BM was yesterday. No changes in urination. No change in chronic LE edema - admits to consuming salt in his diet so always seems to have a small amount of swelling. Diagnosed with mild restrictive lung disease earlier this year and has prn albuterol inhaler but reports that he rarely uses it. Admission Exam Per Admitting Provider Physical exam is notable for pleasant gentleman, no distress on time of exam. CV tachycardic, no MRG. Resp decreased bibasilar breath sounds, otherwise no crackles/wheezing, good air movement. ABD NTND on exam, no nasuea present on exam. No murphys sign elicited. Trace edema in BLE. Principal Diagnosis Acute cholecystitis Discharge Exam Constitutional: Appears slightly lethargic; awake eval by voice. Respiratory: Bilateral vesicular breath sound Cardiovascular: RRR, no murmur, no edema Vessels: no JVD or carotid bruit Chest: normal inspection of chest Abdomen: Mild tenderness on right upper quadrant. Neurologic: Lethargic; awake eval by voice. Able to follow simple commands. Grossly intact Discharge Data Allergies Allergy/AdvReac Type Severity Reaction Status Date / Time bee venom protein (honey bee) Allergy Unknown Unverified 03/11/22 20:33 Consultations 10/08/23 11:21 Consult General Surgery Stat 10/08/23 11:57 ED Decision to Admit Stat 10/09/23 07:56 Burn CD for patient Stat Ordered Studies 10/08/23 09:44 CT abd pelvis IV con only Stat 10/08/23 14:26 US liver Routine 10/09/23 02:59 CT head/brain wo con Stat Hospital Course (1) Acute cholecystitis due to biliary calculus: (2) DMII (diabetes mellitus, type 2): Plan Patient is an 83 y/o male with DM2, HTN, BPH, GERD, prior CVA and other history as outlined below presents with nausea and vomiting for 1 day t, unable to tolerate oral intake today. Work-up in the ED reveals CT abdomen and pelvis consistent with possible cholecystitis though LFTs normal, no leukocytosis, afebrile. General surgery was consulted from ED; recommended conservative management and IV antibiotics. Overnight, patient became confused and agitated. He reportedly had a fall as well. His lactate elevated to 6; down trended with IV hydration. His LFTs also trended in morning labs with total bilirubin of 3.2 and direct bilirubin of 2.0. AST/TPO878/203. [id number] CT head without contrast did not show any acute findings. Discussion was done with Dr. Echevarria; he recommended transfer to tertiary care center for possible cholecystostomy tube and ERCP. Discussion was done with triage officer (Dr. Beckwith) at [facility] in [place]. Case also discussed with interventional radiologist on-call. No road transportation available at the moment. Patient to be transferred by [facility]. All the events were discussed with his brother Aakash over the phone. All questions/queries were answered. Please note the above document was generated using voice recognition software. It may contain grammatical, syntax or spelling errors. Any formal questions or concerns about the content, text or information contained within the body of this dictation should be directly addressed to the provider for clarification Total Time Total Time Spent Total Time Spent (In Minutes): 90 Total Time Includes: Examination of the Patient, Discharge Planning, Medication Reconciliation, Communication With Other Providers and Other Discharge Plan Discharge Items Patient Disposition: Transfer Acute Care Hospital Reason For Visit: N/V, CHOLECYSTITIS Discharge Diagnosis: Acute cholecystitis Activity: Resume your previous activity Non-emergency contact: Primary Care Provider Call non-emergency contact if: you have any medication questions and your symptoms worsen Follow-up/Referrals: Rebekah Giron, [Primary Care Provider] - Diet: Regular and Nothing by Mouth Addtl Attending Provider Instructions: Please follow-up with your primary care doctor after discharge from the hospital Date of Service: October 09, 2023 Current Inpatient Medications Acetaminophen (Acetaminophen 325 Mg Tab) 650 mg PO Q4H PRN PRN Reason: Pain or Fever Stop: 11/07/23 14:04 Dextrose (Dextrose 50% 50 Ml Syringe) 25 - 50 ml IV UD PRN; Protocol PRN Reason: Hypoglycemia Protocol Stop: 11/07/23 13:07 Glucagon (Glucagon For Inj 1 Mg Vial) 1 mg SQ UD PRN; Protocol PRN Reason: Hypoglycemia Protocol Stop: 11/07/23 13:07 Glucose (Glucose 10 Tab/Tube) 4 - 8 tab PO UD PRN; Protocol PRN Reason: Hypoglycemia Treatment Stop: 11/07/23 13:07 Glucose (Glucose 40% Gel 15 Gm Tube) 15 - 30 gm PO UD PRN; Protocol PRN Reason: Hypoglycemia Protocol Stop: 11/07/23 13:07 Piperacillin Sod/Tazobactam (Sod 4.5 gm/ Dextrose) 100 mls @ 25 mls/hr IV Q8H MATT; Protocol Stop: 10/18/23 21:59 Last Admin: 10/09/23 08:07 Dose: 25 mls/hr Promethazine HCl 12.5 mg/ (Sodium Chloride) 50.5 mls @ 202 mls/hr IV Q6H PRN PRN Reason: Nausea And Vomiting Stop: 11/07/23 13:33 Last Infusion: 10/08/23 15:31 Dose: Infused Pantoprazole Sodium 40 mg/ (Syringe) 10 mls @ 5 mls/min IV DAILY@1100 MATT Stop: 11/08/23 10:59 Sodium Chloride (Nss) 1,000 mls @ 125 mls/hr IV .Q8H MATT Stop: 11/08/23 05:14 Last Admin: 10/09/23 06:00 Dose: 125 mls/hr Potassium Chloride (K Markel / Wtr) 10 meq in 100 mls @ 100 mls/hr IV Q1H MATT Stop: 10/09/23 10:29 Magnesium Sulfate/Dextrose (Magnesium Sulfate / D5w) 1 gm in 100 mls @ 50 mls/hr IV ONE ONE Stop: 10/09/23 09:29 Last Admin: 10/09/23 08:07 Dose: 50 mls/hr Insulin Aspart (Insulin Aspart Per Unit Charge) 0 units SC Q6 [facility] Stop: 11/07/23 17:59 Last Admin: 10/09/23 08:07 Dose: 2 units Miscellaneous (Carbohydrates For Hypoglycemia ) 15 - 30 gm PO UD PRN PRN Reason: Hypoglycemia Protocol Stop: 11/07/23 13:07 Miscellaneous Information (Vancomycin Consult Active) 1 each N/A UD PRN PRN Reason: Consult Stop: 11/08/23 05:00 Pending Studies at Discharge: No Stand-Alone Forms: My [facility] Skilled Items Patient informed of condition?: Yes DNR: No Discharge Level of Care: Other Communicable Disease: No Discharge Prognosis: Stable Lines: Peripheral IV Urinary Catheter: Yes Medications and DC Order Prescriptions: Continued citalopram 20 mg Tablet 20 mg PO DAILY tamsulosin 0.4 mg Capsule 0.4 mg PO BID atorvastatin 40 mg Tablet 40 mg PO HS Qty: 30 1RF cholecalciferol (vitamin D3) 25 mcg (1,000 unit) Tablet 50 mcg PO DAILY pantoprazole 40 mg Tablet,Delayed Release (Dr/Ec) 40 mg PO QAM Qty: 30 0RF clopidogrel 75 mg tablet 75 mg PO DAILY [facility] 750 mg-100 mg- 1.65 mg-108 mg Tablet 2 tab PO DAILY aspirin 81 mg Tablet,Delayed Release (Dr/Ec) 81 mg PO QAM 30 Days Qty: 30 2RF Rx Instructions: ALWAYS TAKE WITH A FULL STOMACH magnesium oxide 400 mg (241.3 mg magnesium) tablet 400 mg PO DAILY gabapentin 100 mg capsule 100 mg PO BID albuterol sulfate 90 mcg/actuation HFA aerosol inhaler 2 puff INHALATION Q4H PRN (Reason: Wheezing) benazepril 10 mg tablet 10 mg PO QAM metformin 500 mg tablet extended release 24 hr 1,000 mg PO AMPM Discharge Orders: Discharge Order (Routine); Ordered 10/09/23 Ordered By: Terrence White Admission Data Admit Date/Time: 10/08/23 12:48 Attending Provider: Terrence White Admit Provider: Tiara Servin Primary Care Provider: Rebekah Giron Other Providers: Arnoldo Echevarria; Janny Ramachandran; Tiara Servin Other Interventions: Discharge Summary Assessment (RN) Last Done: 10/09/23 11:06
[2023-10-09] MEDS: POTASSIUM CHLORIDE / WTR 10 MEQ/100 ML PLCT IV SCH ×2 (09:15→10:20)
[2023-10-09 09:25] LABS: Amorphous Sediment Urine Present (None Prsent)
[2023-10-09 09:38] LABS: Adenovirus PCR Not Detected (NotDetected); Bordetella parapertussis PCR Not Detected (NotDetected); Bordetella pertussis PCR Not Detected (NotDetected); Chlamydia pneumoniae PCR Not Detected (NotDetected); Coronavirus 229E PCR Not Detected (NotDetected); Coronavirus CoV-2 (COVID19)PCR Not Detected (NotDetected); Coronavirus HKU1 PCR Not Detected (NotDetected); Coronavirus NL63 PCR Not Detected (NotDetected); Coronavirus OC43PCR Not Detected (NotDetected); Human Metapneumovirus PCR Not Detected (NotDetected); Influenza A PCR Not Detected (NotDetected); Influenza B PCR Not Detected (NotDetected); Mycoplasma pneumoniae PCR Not Detected (NotDetected); Parainfluenza Virus 1 PCR Not Detected (NotDetected); Parainfluenza Virus 2 PCR Not Detected (NotDetected); Parainfluenza Virus 3 PCR Not Detected (NotDetected); Parainfluenza Virus 4 PCR Not Detected (NotDetected); Respiratory Syncytial VirusPCR Not Detected (NotDetected); Rhinovirus/Enterovirus PCR Not Detected (NotDetected)
[2023-10-09] MEDS ORDERED: PANTOprazole 40 MG in SYRINGE 0 ML IV SCH (11:00)
--- NOTE | 2023-10-09 20:37 | Electrocardiogram Report ---
Test Reason : Blood Pressure : / mmHG Vent. Rate : 093 BPM Atrial Rate : 093 BPM P-R Int : 232 ms QRS Dur : 074 ms QT Int : 360 ms P-R-T Axes : 051 017 056 degrees QTc Int : 448 ms Sinus rhythm with 1st degree A-V block with with intermittent aberrant ventricular conduction Borderline ECG When compared with ECG of 11-MAR-2022 16:55, Aberrant conduction is now Present Confirmed by Ankit Palacios ([id number]) on 10/09/2023 8:36:45 PM Referred By: REFERRED SELF Confirmed By:Ankit Palacios
--- NOTE | 2023-10-10 06:30 | Electrocardiogram Report ---
Test Reason : Blood Pressure : / mmHG Vent. Rate : 093 BPM Atrial Rate : 093 BPM P-R Int : 232 ms QRS Dur : 100 ms QT Int : 500 ms P-R-T Axes : 048 009 047 degrees QTc Int : 621 ms Poor data quality, interpretation may be adversely affected Sinus rhythm with 1st degree A-V block with occasional , and consecutive Premature atrial complexes w ith aberrancy Abnormal ECG When compared with ECG of 08-OCT-2023 09:29, (unconfirmed) No significant change Confirmed by Ankit Palacios ([id number]) on 10/10/2023 6:29:50 AM Referred By: REFERRED SELF Confirmed By:Ankit Palacios
[2023-10-10 07:18] LABS: Estimated Average Glucose 146 mg/dl; Hemoglobin A1C 6.7 % (4.5-5.6)
== END 2023-10-09 11:05 | disposition short-term general hospital (02) ==
LOC: 2S 09:20 → ED 09:20 → SUATTDRO 12:48 → 2S 13:43

== ENCOUNTER 2023-10-28 18:55 | Inpatient (IN) ==
[2023-10-28 20:36] LABS: Appearance Urine Clear (Clear); Blood Urine Negative (Negative); Color Urine Dark Yellow; Glucose Urine UA Negative (Negative); Ketones Urine Negative (Negative); Leukocyte Esterase Urine Negative (Negative); Nitrite Urine Negative (Negative); Protein Urine Negative (Negative); Specific Gravity Urine 1.007 (1.000-1.030); Urobilinogen Urine Negative (Negative)
[2023-10-28 20:50] LABS: Basophils # (auto) 0.03 K/uL (0.00-0.20); Basophils % (auto) 0.3 %; Eosinophils # (auto) 0.03 K/uL (0.00-0.50); Eosinophils % (auto) 0.3 %; Hematocrit (blood only) 36.5 % (42.0-52.0); Hemoglobin 12.7 g/dl (14.0-18.0); Immature Granulocytes # (auto) 0.08 K/uL (0.01-0.20); Immature Granulocytes % (auto) 0.9 %; Lymphocytes # (auto) 0.98 K/uL (1.20-3.40); Lymphocytes % (auto) 10.4 %; Mean Corpuscular Hemoglobin 31.1 pg (25.0-34.0); Mean Corpuscular Hgb Conc 34.8 g/dL (32.0-36.0); Mean Corpuscular Volume 89.5 fL (80.0-100.0); Mean Platelet Volume 10.2 fL (9.4-12.4); Monocytes # (auto) 0.95 K/uL (0.11-0.59); Monocytes % (auto) 10.1 %; Neutrophils # (auto) 7.34 K/uL (1.40-6.50); Platelet Count 399 K/uL (130-400); RDW Coefficient of Variation 13.6 % (11.5-14.5); RDW Standard Deviation 44.5 fL (36.4-46.3); Red Blood Count 4.08 M/uL (4.70-6.10); White Blood Count 9.41 K/ul (4.8-10.8)
[2023-10-28 20:52] LABS: Bilirubin Urine 1+ (Negative)
[2023-10-28 20:55] LABS: Albumin Globulin Ratio 1.1 (0.9-2); Albumin Level 3.7 gm/dl (3.4-5.0); BUN Creatinine Ratio 11.1 (10-20); Bilirubin,Total 4.6 mg/dl (0.2-1.0); Calcium 9.2 mg/dl (8.6-10.3); Creatinine Clr Calc Pharmacy 61.9 ml/min; Est GFR (African American) 81.3 ml/min; Est GFR (Non-African American) 70.1 ml/min; Globulin 3.4 gm/dl (2.5-4.0); Potassium 3.9 mmol/L (3.5-5.1); Total Protein 7.1 gm/dl (6.0-8.3)
[2023-10-28 21:19] LABS: Influenza A virus by PCR Negative (Neg); Influenza B virus by PCR Negative (Neg); RSV by PCR Negative (Neg); SARS CoV2 RNA(COVID-19) Ceph NEGATIVE (Negative)
[2023-10-28] MEDS ORDERED: SODIUM CHLORIDE 0.9% 1,000 ML IV ONE (21:46)
[2023-10-28] MEDS ORDERED: PIPERACILLIN/TAZOBACTAM 4.5 GM/100 ML BAG IV ONE (21:46)
--- NOTE | 2023-10-28 22:30 | Emergency Department Note ---
History of Present Illness General Chief complaint: Illness Stated complaint: INFECTION, VOMITING, FEVER, DIARREAH, LOW OX Time Seen by Provider: 10/28/23 21:31 History of Present Illness Maximum Pain Intensity: 2 This 83-year-old male presents to the ER with family for evaluation of fever, chills, weakness, diarrhea and abdominal discomfort for the past few days steadily getting worse. He had a cholecystectomy right after Giovanna at [facility]. He was discharged right before New Year's with oxygen and the CARRIE drain was pulled. The home health nurse noticed some infection around the incisional site and the PCP placed him on Keflex. Patient's been more weak and eating and drinking less so family was concerned and brought him in. Patient denies cough, congestion, vomiting, urinary issues. Home Medications Medication Instructions Recorded Confirmed Type citalopram 20 mg tablet 20 mg PO QAM 12/30/18 10/28/23 History tamsulosin 0.4 mg capsule 0.8 mg PO QAM 12/30/18 10/28/23 History atorvastatin 40 mg tablet 40 mg PO HS #30 tabs 01/01/19 10/28/23 Rx cholecalciferol (vitamin D3) 25 50 mcg PO DAILY 09/22/21 10/28/23 History mcg (1,000 unit) tablet pantoprazole 40 mg tablet,delayed 40 mg PO QAM #30 tabs 09/24/21 10/28/23 Rx release clopidogrel 75 mg tablet 75 mg PO QAM 03/11/22 10/28/23 History glucosam 750 mg-chondroi 100 2 tab PO DAILY 03/11/22 10/28/23 History mg-hyalur 1.65 mg-CF borate 108 mg tablet ([facility]) aspirin 81 mg tablet,delayed 81 mg PO QAM 30 days #30 tabs 03/14/22 10/28/23 Rx release albuterol sulfate 90 mcg/actuation 2 puff inhalation Q4H PRN Wheezing 10/08/23 10/28/23 History aerosol inhaler benazepril 10 mg tablet 10 mg PO QAM 10/08/23 10/28/23 History gabapentin 100 mg capsule 100 mg PO TID 10/08/23 10/28/23 History magnesium oxide 400 mg (241.3 mg 400 mg PO DAILY 10/08/23 10/28/23 History magnesium) tablet metformin 500 mg tablet,extended 1,000 mg PO AMPM 10/08/23 10/28/23 History release 24 hr Allergies Allergy/AdvReac Type Severity Reaction Status Date / Time bee venom protein (honey bee) Allergy Unknown Unverified 03/11/22 20:33 Past Med/Surg History Medical History 1st degree AV block PAT (paroxysmal atrial tachycardia) GERD without esophagitis Acute CVA (cerebrovascular accident) Thrombosis of left vertebral artery HTN (hypertension) DMII (diabetes mellitus, type 2) Acute hypoxemic respiratory failure Diverticulitis Depression HLD (hyperlipidemia) BPH (benign prostatic hyperplasia) PUD (peptic ulcer disease) UGIB (upper gastrointestinal bleed) PNA (pneumonia) Asthma Surgical History History of cataract surgery History of colonoscopy with polypectomy History of esophagogastroduodenoscopy (EGD) Family History Father , 71 Heart disease Mother Alzheimer disease Parkinsons disease Social History Smoking Status: Former smoker Tobacco Type: Cigarettes Second Hand Exposure: No; Do You Dip or Chew Tobacco: No; Hx Alcohol Use: No Hx Substance Use: No Preferred Language: Kittitian Communication Ability: Impaired Hearing Ability: Hard of Hearing Card Reader Required: No Beliefs That Will Affect Care: None marital status: Current Living Situation: Alone current occupational status: retired Feels Safe at Home: Yes Assistive Devices: None Review of Systems A total of 10 systems reviewed and were otherwise negative Physical Exam Vital Signs Vital Signs - 24 hr 10/28/23 19:04 10/28/23 21:46 10/28/23 23:00 Temperature 36.8 C Temperature Source Temporal Artery Scan Pulse Rate 87 60 Pulse Rate [Apical] 69 Respiratory Rate 18 17 16 Respiratory Effort / Characteristics Non-Labored Spontaneous Non-Labored Respiratory Depth Normal Normal Respiratory Pattern Regular Blood Pressure 106/68 Blood Pressure [Right Arm] 111/55 L Blood Pressure Mean 80 Blood Pressure Mean [Right Arm] 73 Blood Pressure Position Sitting Pulse Oximetry 93 93 94 Oxygen Delivery Method Room Air Room Air Room Air Sepsis Recent Fever Within 48 Hours No Sepsis New/Unexplained Change in Mental Status No Sepsis Action Taken by Nursing No Action Required 10/28/23 23:00 10/28/23 23:30 10/28/23 23:55 Temperature Temperature Source Pulse Rate 60 60 61 Pulse Rate [Apical] Respiratory Rate 12 15 Respiratory Effort / Characteristics Respiratory Depth Respiratory Pattern Blood Pressure 115/67 Blood Pressure [Right Arm] Blood Pressure Mean 83 Blood Pressure Mean [Right Arm] Blood Pressure Position Pulse Oximetry 96 95 Oxygen Delivery Method Room Air Room Air Sepsis Recent Fever Within 48 Hours Sepsis New/Unexplained Change in Mental Status Sepsis Action Taken by Nursing VITALS: Vitals are noted on the nurse's note and reviewed by myself. Vital signs stable. GENERAL: Pleasant elderly male, in no acute distress, nondiaphoretic, well- developed well-nourished. SKIN: Capillary reflex less than 2 seconds. HEENT: Normocephalic. PERRLA. EOMI. Nares patent. Mucous membranes moist. Neck is supple without nuchal rigidity. HEART: Regular rate and rhythm LUNGS: Clear to auscultation bilaterally without wheezes, rales or rhonchi. No retractions or accessory muscle use. ABDOMEN: Positive bowel sounds x 4. Normal tympanic percussion. Soft, tender right upper quadrant, without masses or organomegaly. Kapoor sign negative. No guarding or rebound tenderness. No CVA tenderness MUSCULOSKELETAL: No gross musculoskeletal defects. NEURO: Patient was alert and oriented to person place and time. No focal neurological deficits. Course Administered Medications Discontinued Medications Sodium Chloride (Nss) 1,000 mls @ 999 mls/hr IV .Q1H1M ONE Stop: 10/28/23 22:46 Last Infusion: 10/28/23 23:16 Dose: Infused Documented By: Admin: 10/28/23 22:11 Dose: 999 mls/hr Documented By: GLO Piperacillin Sod/Tazobactam Sod (Zosyn) 4.5 gm in 100 mls @ 200 mls/hr IV NOW ONE Stop: 10/28/23 22:15 Last Admin: 10/28/23 23:46 Dose: 200 mls/hr Documented By: GLO Ioversol (Optiray 320 125ml) 117 ml IV ONCE ONE Stop: 10/28/23 22:42 Last Admin: 10/28/23 22:42 Dose: 117 ml Documented By: MAJOR Medical Decision Making Medical Records Attestation: I reviewed the patient's medical records. Home Medications Current Medication List: was personally reviewed by me Laboratory Data Attestation: I reviewed the patient's lab results. 10/28/23 19:55 10/28/23 19:55 Lab Results 10/28/23 10/28/23 10/28/23 Range/Units 19:50 19:55 23:02 WBC 9.41 (4.8-10.8) K/ul RBC 4.08 L (4.70-6.10) M/uL Hgb 12.7 L (14.0-18.0) g/dl Hct 36.5 L (42.0-52.0) % MCV 89.5 (80.0-100.0) fL MCH 31.1 (25.0-34.0) pg MCHC 34.8 (32.0-36.0) g/dL RDW Std Deviation 44.5 (36.4-46.3) fL RDW Coeff of Tana 13.6 (11.5-14.5) % Plt Count 399 (130-400) K/uL MPV 10.2 (9.4-12.4) fL Immature Gran % (Auto) 0.9 % Neut % (Auto) 78.0 % Lymph % (Auto) 10.4 % [place] % (Auto) 10.1 % Eos % (Auto) 0.3 % Baso % (Auto) 0.3 % Neut # (Auto) 7.34 H (1.40-6.50) K/uL Lymph # (Auto) 0.98 L (1.20-3.40) K/uL [place] # (Auto) 0.95 H (0.11-0.59) K/uL Eos # (Auto) 0.03 (0.00-0.50) K/uL Baso # (Auto) 0.03 (0.00-0.20) K/uL Immature Gran # (Auto) 0.08 (0.01-0.20) K/uL PT 12.2 H (9.0-12.0) Seconds INR 1.1 (0.9-1.1) APTT 28 (21-31) Seconds PTT Ratio 1.0 Sodium 133 L (136-145) mmol/L Potassium 3.9 (3.5-5.1) mmol/L Chloride 100 (98-107) mmol/L Carbon Dioxide 23 (21-32) mmol/L Anion Gap 10 (3-11) BUN 11 (6-23) mg/dl Creatinine 0.99 (0.6-1.4) mg/dl Est Cr Clr Drug Dosing 61.9 ml/min Est GFR ( Amer) 81.3 ml/min Est GFR (Non-Af Amer) 70.1 ml/min BUN/Creatinine Ratio 11.1 (10-20) Glucose 170 H (70-99(Fasting)) mg/dl Lactate (0.4-2.0) mmol/L Calcium 9.2 (8.6-10.3) mg/dl Magnesium 1.6 L (1.7-2.4) mg/dl Total Bilirubin 4.6 H (0.2-1.0) mg/dl AST 473 H (13-39) U/L ALT 373 H (7-52) U/L Alkaline Phosphatase 381 H (34-104) U/L Troponin I High Sens 21.9 H (0-20) pg/ml Total Protein 7.1 (6.0-8.3) gm/dl Albumin 3.7 (3.4-5.0) gm/dl Globulin 3.4 (2.5-4.0) gm/dl Albumin/Globulin Ratio 1.1 (0.9-2) Lipase 100 H (11-82) U/L Urine Color Dark Yellow Urine Appearance Clear (Clear) Urine pH 6.0 (4.5-7.5) Ur Specific Bassett 1.007 (1.000-1.030) Urine Protein Negative (Negative) Urine Glucose (UA) Negative (Negative) Urine Ketones Negative (Negative) Urine Blood Negative (Negative) Urine Nitrite Negative (Negative) Urine Bilirubin 1+ H (Negative) Urine Urobilinogen Negative (Negative) Ur Leukocyte Esterase Negative (Negative) SARS-CoV-2 (PCR) NEGATIVE (Negative) Influenza Type A (PCR) Negative (Neg) Influenza Type B (PCR) Negative (Neg) RSV (RT-PCR) Negative (Neg) 10/28/23 Range/Units 23:12 WBC (4.8-10.8) K/ul RBC (4.70-6.10) M/uL Hgb (14.0-18.0) g/dl Hct (42.0-52.0) % MCV (80.0-100.0) fL MCH (25.0-34.0) pg MCHC (32.0-36.0) g/dL RDW Std Deviation (36.4-46.3) fL RDW Coeff of Tana (11.5-14.5) % Plt Count (130-400) K/uL MPV (9.4-12.4) fL Immature Gran % (Auto) % Neut % (Auto) % Lymph % (Auto) % [place] % (Auto) % Eos % (Auto) % Baso % (Auto) % Neut # (Auto) (1.40-6.50) K/uL Lymph # (Auto) (1.20-3.40) K/uL [place] # (Auto) (0.11-0.59) K/uL Eos # (Auto) (0.00-0.50) K/uL Baso # (Auto) (0.00-0.20) K/uL Immature Gran # (Auto) (0.01-0.20) K/uL PT (9.0-12.0) Seconds INR (0.9-1.1) APTT (21-31) Seconds PTT Ratio Sodium (136-145) mmol/L Potassium (3.5-5.1) mmol/L Chloride (98-107) mmol/L Carbon Dioxide (21-32) mmol/L Anion Gap (3-11) BUN (6-23) mg/dl Creatinine (0.6-1.4) mg/dl Est Cr Clr Drug Dosing ml/min Est GFR ( Amer) ml/min Est GFR (Non-Af Amer) ml/min BUN/Creatinine Ratio (10-20) Glucose (70-99(Fasting)) mg/dl Lactate 1.3 (0.4-2.0) mmol/L Calcium (8.6-10.3) mg/dl Magnesium (1.7-2.4) mg/dl Total Bilirubin (0.2-1.0) mg/dl AST (13-39) U/L ALT (7-52) U/L Alkaline Phosphatase (34-104) U/L Troponin I High Sens (0-20) pg/ml Total Protein (6.0-8.3) gm/dl Albumin (3.4-5.0) gm/dl Globulin (2.5-4.0) gm/dl Albumin/Globulin Ratio (0.9-2) Lipase (11-82) U/L Urine Color Urine Appearance (Clear) Urine pH (4.5-7.5) Ur Specific Bassett (1.000-1.030) Urine Protein (Negative) Urine Glucose (UA) (Negative) Urine Ketones (Negative) Urine Blood (Negative) Urine Nitrite (Negative) Urine Bilirubin (Negative) Urine Urobilinogen (Negative) Ur Leukocyte Esterase (Negative) SARS-CoV-2 (PCR) (Negative) Influenza Type A (PCR) (Neg) Influenza Type B (PCR) (Neg) RSV (RT-PCR) (Neg) Imaging Data Attestation: I personally reviewed and interpreted this imaging study as follows: Radiologist's Impression: Abdomen/Pelvis CT 10/28/23 21:46 Exam(s): CT ABDOMEN + PELVIS With Contrast IV Amt: 118 cc opti 320 EXAM: CT Abdomen and Pelvis With Intravenous Contrast CLINICAL HISTORY: Reason for exam: fever, abd pain, recent GB removal. TECHNIQUE: Axial computed tomography images of the abdomen and pelvis with intravenous contrast. CTDI is 27.5 mGy and DLP is 2251.85 mGy-cm. Automated exposure control was utilized for the study. A dose lowering technique was utilized adhering to the principles of ALARA. CONTRAST: Patient received 118 cc opti 320 of IV contrast COMPARISON: No relevant prior studies available. FINDINGS: Lung bases: Unremarkable. No mass. No consolidation. ABDOMEN: Liver: Unremarkable. No mass. Gallbladder and bile ducts: 4.0 x 2.4 x 3.3 cm rim-enhancing postoperative rim-enhancing fluid collection in the gallbladder fossa. Status post cholecystectomy. No ductal dilation. Pancreas: Unremarkable. No mass. No ductal dilation. Spleen: Unremarkable. No splenomegaly. Adrenals: Unremarkable. No mass. Kidneys and ureters: Bilateral simple renal cysts measuring up to 2.1 cm in the lower pole of the right kidney. No further workup is required. No hydronephrosis. Stomach and bowel: Severe colonic diverticulosis without evidence of diverticulitis. No obstruction. PELVIS: Appendix: No findings to suggest acute appendicitis. Bladder: Unremarkable. No mass. Reproductive: Unremarkable as visualized. ABDOMEN and PELVIS: Intraperitoneal space: Unremarkable. No free air. No significant fluid collection. Bones/joints: No acute fracture. No dislocation. Soft tissues: Unremarkable. Vasculature: Unremarkable. No abdominal aortic aneurysm. Lymph nodes: Unremarkable. No enlarged lymph nodes. IMPRESSION: 4.0 x 2.4 x 3.3 cm rim-enhancing postoperative rim-enhancing fluid collection in the gallbladder fossa. Electronically signed by: Ten Shirley M.D. 10/28/23 23:37 PM Chest CTA 10/28/23 21:46 Exam(s): CTA CHEST IV Amt: 118 cc opti 320 EXAM: CT Angiography Chest With Intravenous Contrast CLINICAL HISTORY: Reason for exam: PE, sepsis, recent GB removal. TECHNIQUE: Axial computed tomographic angiography images of the chest with intravenous contrast. CTDI is 27.5 mGy and DLP is 2251.85 mGy-cm. Automated exposure control was utilized for the study. A dose lowering technique was utilized adhering to the principles of ALARA. MIP reconstructed images were created and reviewed. COMPARISON: 09/23/2021. FINDINGS: Pulmonary arteries: Unremarkable. No CT evidence of pulmonary embolism. Aorta: No acute findings. No thoracic aortic aneurysm. Lungs: Peripheral scarring within bilateral lung bases. No mass. No consolidation. Pleural space: Unremarkable. No significant effusion. No pneumothorax. Heart: Unremarkable. No cardiomegaly. No significant pericardial effusion. No evidence of RV dysfunction. Thyroid: 1.8 cm right thyroid nodule unchanged from prior study of 2020. Bones/joints: No acute fracture. No dislocation. Soft tissues: Unremarkable. Lymph nodes: Unremarkable. No enlarged lymph nodes. IMPRESSION: No CT evidence of pulmonary embolism. Electronically signed by: Ten Shirley M.D. 10/28/23 23:26 PM Chest X-Ray 10/28/23 21:51 SINGLE VIEW CHEST CLINICAL HISTORY: Generalized weakness. FINDINGS: An AP, portable, upright chest radiograph is compared to study dated 10/08/2023. The heart is enlarged noting atherosclerotic calcification of the thoracic aorta. The pulmonary vasculature is noncongested. Chronic interstitial thickening is similar to previous. There is bibasilar scarring/atelectasis. The lungs and pleural spaces are otherwise clear. No pneumothorax is seen. The skeletal structures are osteopenic. The bony thorax is grossly intact. IMPRESSION: Cardiomegaly with no active disease in the chest. ACT 112: Negative or not required by law. Electronically signed by: Lito Sheehan M.D. 10/28/2023 11:20 PM [facility] Narrative Prior records/ancillary studies reviewed. Triage Nursing notes reviewed. Additional history obtained from family. The patient's history was concerning for fever. Differential diagnosis: Etiologies such as postop infection, retained gallbladder stone, viral syndrome, otitis, pharyngitis, pneumonia, influenza, meningitis, urinary tract infection, sepsis, bacteremia, as well as others were entertained. Physical examination: As above ER treatment provided: An order was placed for continuous cardiac monitoring. The monitor shows a rate of 60-100 with a sinus rhythm per my interpretation. Zosyn, IV fluids were ordered On reassessment the patient felt better. Diagnostics interpreted by me: ECG: Ordered for weakness The labs Independently Interpreted by myself revealed no worrisome leukocytosis, elevated LFTs and T. bili, lipase 100, glucose 170 Blood cultures pending Negative urine Imaging studies: Chest x-ray with no acute consolidation, pneumothorax or free air per my independent interpretation Consultation: A consultation was placed with surgeon, Dr. Torre. The case was discussed and diagnostics were reviewed. He believes the fluid on the CAT scan is mostly postsurgical and not an abscess. He recommends either an MRCP or an ERCP with medical admission and GI consult with antibiotics. Medicine is consulted and the case was discussed. Patient be admitted to the medical service. This appears to be consistent with fever, abdominal pain, diarrhea and recent gallbladder surgery. Patient had elevated LFTs. CAT scan showed no dilation of the biliary duct. Upon initial evaluation he was started on antibiotics. X-ray was clear. CTA of the chest was negative. Medicine and surgery were consulted. Patient was admitted to the medical service for further evaluation and workup. Surgery recommends either an ERCP or MRCP for possible retained stone with GI consult. Patient is agreeable treatment plan of admission. Patient was admitted to the medical service. By the evaluation outlined above emergent etiologies such as otitis, pharyngitis, pneumonia, meningitis, urinary tract infection, sepsis, bacteremia, as well as others were deemed relatively unlikely. The pt informed about the findings as listed above. All questions were answered and pleased with the treatment. The chart was completed utilizing [employer] voice recognition software. Grammatical errors, random word insertions, pronoun errors, and incomplete sentences are an occassional consequence of this system due to software limitations, ambient noise, and hardware issues. Any formal questions or concerns about the content, text, or information contained within the body of this dictation should be directly addressed to the physician engineer second assistant for clarification. Impression & Plan Fever, Diarrhea, Weakness, Elevated LFTs, Abdominal pain Discharge Plan Visit Data Chief Complaint: Illness Stated Complaint: INFECTION, VOMITING, FEVER, DIARREAH, LOW OX ED Provider: Dhaval Henry ED Midlevel Provider: Jacquelyn Evangelista Discharge Problem: Fever, Diarrhea, Weakness, Elevated LFTs, Abdominal pain Patient Disposition: Admitted As Inpatient Condition: Good Forms Stand Alone Forms: My [facility] Prescriptions Prescriptions: No Action citalopram 20 mg Tablet 20 mg PO QAM tamsulosin 0.4 mg Capsule 0.8 mg PO QAM Rx Instructions: 2 tablet dose atorvastatin 40 mg Tablet 40 mg PO HS Qty: 30 1RF cholecalciferol (vitamin D3) 25 mcg (1,000 unit) Tablet 50 mcg PO DAILY pantoprazole 40 mg Tablet,Delayed Release (Dr/Ec) 40 mg PO QAM Qty: 30 0RF clopidogrel 75 mg tablet 75 mg PO QAM [facility] Agent Ace 750 mg-100 mg- 1.65 mg-108 mg Tablet 2 tab PO DAILY aspirin 81 mg Tablet,Delayed Release (Dr/Ec) 81 mg PO QAM 30 Days Qty: 30 2RF Rx Instructions: ALWAYS TAKE WITH A FULL STOMACH magnesium oxide 400 mg (241.3 mg magnesium) tablet 400 mg PO DAILY gabapentin 100 mg capsule 100 mg PO TID albuterol sulfate 90 mcg/actuation HFA aerosol inhaler 2 puff INHALATION Q4H PRN (Reason: Wheezing) benazepril 10 mg tablet 10 mg PO QAM metformin 500 mg tablet extended release 24 hr 1,000 mg PO AMPM Referrals Referrals: Rebekah Giron DO [Primary Care Provider] - Discharge Problem: Fever Qualifiers: Fever type: unspecified Qualified Code(s): R50.9 - Fever, unspecified
[2023-10-28] MEDS ORDERED: OPTIRAY 320 125ml IV ONE (22:41)
--- NOTE | 2023-10-28 23:21 | XRay Report ---
SINGLE VIEW CHEST CLINICAL HISTORY: Generalized weakness. FINDINGS: An AP, portable, upright chest radiograph is compared to study dated 10/08/2023. The heart is enlarged noting atherosclerotic calcification of the thoracic aorta. The pulmonary vasculature is noncongested. Chronic interstitial thickening is similar to previous. There is bibasilar scarring/ate lectasis. The lungs and pleural spaces are otherwise clear. No pneumothorax is seen. The skeletal str uctures are osteopenic. The bony thorax is grossly intact. IMPRESSION: Cardiomegaly with no active disease in the chest. ACT 112: Negative or not required by law. Electronically signed by: Lito Sheehan M.D. 10/28/2023 11:20 PM
--- NOTE | 2023-10-28 23:27 | CT Scan Report ---
Exam(s): CTA CHEST IV Amt: 118 cc opti 320 EXAM: CT Angiography Chest With Intravenous Contrast CLINICAL HISTORY: Reason for exam: PE, sepsis, recent GB removal. TECHNIQUE: Axial computed tomographic angiography images of the chest with intravenous contrast. CTDI is 27.5 mGy and DLP is 2251.85 mGy-cm. Automated exposure control was utilized for the study. A dose lowering technique was utilized adhering to the principles of ALARA. MIP reconstructed images were created and reviewed. COMPARISON: 09/23/2021. FINDINGS: Pulmonary arteries: Unremarkable. No CT evidence of pulmonary embolism. Aorta: No acute findings. No thoracic aortic aneurysm. Lungs: Peripheral scarring within bilateral lung bases. No mass. No consolidation. Pleural space: Unremarkable. No significant effusion. No pneumothorax. Heart: Unremarkable. No cardiomegaly. No significant pericardial effusion. No evidence of RV dysfunction. Thyroid: 1.8 cm right thyroid nodule unchanged from prior study of 2020. Bones/joints: No acute fracture. No dislocation. Soft tissues: Unremarkable. Lymph nodes: Unremarkable. No enlarged lymph nodes. IMPRESSION: No CT evidence of pulmonary embolism. Electronically signed by: Ten Shirley M.D. 10/28/23 23:26 PM
--- NOTE | 2023-10-28 23:38 | CT Scan Report ---
Exam(s): CT ABDOMEN + PELVIS With Contrast IV Amt: 118 cc opti 320 EXAM: CT Abdomen and Pelvis With Intravenous Contrast CLINICAL HISTORY: Reason for exam: fever, abd pain, recent GB removal. TECHNIQUE: Axial computed tomography images of the abdomen and pelvis with intravenous contrast. CTDI is 27.5 mGy and DLP is 2251.85 mGy-cm. Automated exposure control was utilized for the study. A dose lowering technique was utilized adhering to the principles of ALARA. CONTRAST: Patient received 118 cc opti 320 of IV contrast COMPARISON: No relevant prior studies available. FINDINGS: Lung bases: Unremarkable. No mass. No consolidation. ABDOMEN: Liver: Unremarkable. No mass. Gallbladder and bile ducts: 4.0 x 2.4 x 3.3 cm rim-enhancing postoperative rim-enhancing fluid collection in the gallbladder fossa. Status post cholecystectomy. No ductal dilation. Pancreas: Unremarkable. No mass. No ductal dilation. Spleen: Unremarkable. No splenomegaly. Adrenals: Unremarkable. No mass. Kidneys and ureters: Bilateral simple renal cysts measuring up to 2.1 cm in the lower pole of the right kidney. No further workup is required. No hydronephrosis. Stomach and bowel: Severe colonic diverticulosis without evidence of diverticulitis. No obstruction. PELVIS: Appendix: No findings to suggest acute appendicitis. Bladder: Unremarkable. No mass. Reproductive: Unremarkable as visualized. ABDOMEN and PELVIS: Intraperitoneal space: Unremarkable. No free air. No significant fluid collection. Bones/joints: No acute fracture. No dislocation. Soft tissues: Unremarkable. Vasculature: Unremarkable. No abdominal aortic aneurysm. Lymph nodes: Unremarkable. No enlarged lymph nodes. IMPRESSION: 4.0 x 2.4 x 3.3 cm rim-enhancing postoperative rim-enhancing fluid collection in the gallbladder fossa. Electronically signed by: Ten Shirley M.D. 10/28/23 23:37 PM
[2023-10-28 23:51] LABS: Troponin I High Sensitivity 21.9 pg/ml (0-20)
[2023-10-28 23:59] LABS: INR 1.1 (0.9-1.1); Partial Thromboplastin Time 28 Seconds (21-31); Prothrombin Time 12.2 Seconds (9.0-12.0)
[2023-10-29 00:19] LABS: Magnesium 1.6 mg/dl (1.7-2.4)
--- NOTE | 2023-10-29 00:54 | History & Physical Report ---
Date of Service October 29, 2023 Assessment & Plan (1) Abdominal pain: Plan: Postcholecystectomy fluid collection Abnormal LFTs No sepsis for now HTN, stable hyperlipidemia, on statin Rx hx CVA PVD restrictive lung disease as per records DM2 on oral meds, well-controlled as of recent hemoglobin A1c of 6.7 in September 2023 Postop anemia, hemoglobin at baseline following [facility] confinement Diarrhea rule out C. difficile given recent antibiotic Rx past tobacco abuse. [facility] General surgery consultation Re: Postcholecystectomy fluid collection ER provider already in touch with Dr. Torre who recommends antibiotics, MRCP and GI consultation. Continue Zosyn, further management pending workup results Hold patient Plavix given potential need for intervention. Basal insulin adjusted for n.p.o. status, ISS BG goal 1 10-1 40 DVT prophylaxis SCDs Re: Possible procedure Full code Patient brother requesting update providers. Mr. Aakash Nick, contact numbers [phone]. . Text document was generated using [email or web address] voice recognition software. It may contain grammatical or spelling errors. Kindly contact undersigned for clarification of any documentation item in question. History of Present Illness Chief Complaint: Emesis, recent surgery Primary Care Provider: Rebekah Giron, History obtained from patient, family, and records. Medical history significant for HTN, hyperlipidemia, CVA, PVD, restrictive lung disease as per records, DM2 on oral meds, hyperlipidemia, diverticulosis, BPH, mood disorder, recent cholecystectomy, past tobacco abuse. Recent [facility] confinement October 09 to 2022 for choledocholithiasis and possible need for ERCP following [facility] transfer. Patient underwent cholecystectomy, drain placed in gallbladder fossa. Abnormal nocturnal oximetry during confinement. Home O2 arrangements made on discharge back home. 2 weeks ago, home nurse noted redness on incision site. Patient with some abdominal pain. No fever, no chills. PCP prescribed Keflex course which led to improvement of infection as per patient/family. Subsequent loose stools. Patient noted to be increasingly weak by family last few days. Subsequent emesis yesterday. Same abdominal pain. Patient brought to ER for evaluation following home nurse recommendations. IV Zosyn administered at the ER. MEDICAL HISTORY: As above. SURGERIES:Cholecystectomy, cataract surgeries FAMILY HISTORY:Parkinson's disease, dementia, heart disease PERSONAL AND SOCIAL HISTORY: Past tobacco abuse. 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 Allergies Allergy/AdvReac Type Severity Reaction Status Date / Time bee venom protein (honey bee) Allergy Unknown Unverified 03/11/22 20:33 Home Medications Medication Instructions Recorded Confirmed Type citalopram 20 mg tablet 20 mg PO QAM 12/30/18 10/28/23 History tamsulosin 0.4 mg capsule 0.8 mg PO QAM 12/30/18 10/28/23 History atorvastatin 40 mg tablet 40 mg PO HS #30 tabs 01/01/19 10/28/23 Rx cholecalciferol (vitamin D3) 25 50 mcg PO DAILY 09/22/21 10/28/23 History mcg (1,000 unit) tablet pantoprazole 40 mg tablet,delayed 40 mg PO QAM #30 tabs 09/24/21 10/28/23 Rx release clopidogrel 75 mg tablet 75 mg PO QAM 03/11/22 10/28/23 History glucosam 750 mg-chondroi 100 2 tab PO DAILY 03/11/22 10/28/23 History mg-hyalur 1.65 mg-CF borate 108 mg tablet ([facility]) aspirin 81 mg tablet,delayed 81 mg PO QAM 30 days #30 tabs 03/14/22 10/28/23 Rx release albuterol sulfate 90 mcg/actuation 2 puff inhalation Q4H PRN Wheezing 10/08/23 10/28/23 History aerosol inhaler benazepril 10 mg tablet 10 mg PO QAM 10/08/23 10/28/23 History gabapentin 100 mg capsule 100 mg PO TID 10/08/23 10/28/23 History magnesium oxide 400 mg (241.3 mg 400 mg PO DAILY 10/08/23 10/28/23 History magnesium) tablet metformin 500 mg tablet,extended 1,000 mg PO AMPM 10/08/23 10/28/23 History release 24 hr Past Med/Surg History Medical History 1st degree AV block PAT (paroxysmal atrial tachycardia) GERD without esophagitis Acute CVA (cerebrovascular accident) Thrombosis of left vertebral artery HTN (hypertension) DMII (diabetes mellitus, type 2) Acute hypoxemic respiratory failure Diverticulitis Depression HLD (hyperlipidemia) BPH (benign prostatic hyperplasia) PUD (peptic ulcer disease) UGIB (upper gastrointestinal bleed) PNA (pneumonia) Asthma Surgical History History of cataract surgery History of colonoscopy with polypectomy History of esophagogastroduodenoscopy (EGD) Family History Father , 71 Heart disease Mother Alzheimer disease Parkinsons disease Social History Smoking Status: Former smoker Tobacco Type: Cigarettes Second Hand Exposure: No; Do You Dip or Chew Tobacco: No; Hx Alcohol Use: No Hx Substance Use: No Preferred Language: Georgian Communication Ability: Effective Hearing Ability: Hard of Hearing Warehouse Examiner Required: No Beliefs That Will Affect Care: None marital status: Current Living Situation: Alone Current Living Situation Comment: son and sons check in on him current occupational status: retired Feels Safe at Home: Yes Safety Concerns: Feels Safe At This Time Assistive Devices: Cane and Walker Review of Systems Review of Systems: As per HPI, all other systems reviewed and negative Physical Exam Physical Exam: GENERAL: Comfortable, pleasant, obese, slightly hard of hearing, no respiratory distress SKIN: Pallor, warm HEENT: Alopecia, pale palpebral conjunctivae, no ptosis, dry buccal mucosa NECK : Supple, short neck, no tenderness CHEST : Decreased breath sounds, no tenderness HEART : RRR, no obvious murmurs ABDOMEN: Some distention, minimal right upper quadrant tenderness EXTREMITIES : Minimal LE swelling, no LE tenderness, no other conspicuous deformities noted NEUROLOGIC : Coherent, no facial asymmetry, mild hearing impairment, no other gross focality Results & Data Results & Data Vital Signs (Past 12 Hours) Vital Signs Temp Pulse Pulse Resp BP BP Pulse Ox 10/29/23 00:30 68 22 130/84 94 10/29/23 00:00 66 22 122/71 94 10/28/23 23:55 61 15 115/67 95 10/28/23 23:30 60 12 96 10/28/23 23:00 60 10/28/23 23:00 60 16 94 10/28/23 21:46 69 17 111/55 L 93 10/28/23 19:04 36.8 C 87 18 106/68 93 O2 Del Method 10/29/23 00:30 Room Air 10/29/23 00:00 Room Air 10/28/23 23:55 Room Air 10/28/23 23:30 Room Air 10/28/23 23:00 10/28/23 23:00 Room Air 10/28/23 21:46 Room Air 10/28/23 19:04 Room Air Laboratory Results Laboratory Results WBC 9.41 K/ul (4.8-10.8) 10/28/23 19:55 RBC 4.08 M/uL (4.70-6.10) L 10/28/23 19:55 Hgb 12.7 g/dl (14.0-18.0) L 10/28/23 19:55 Hct 36.5 % (42.0-52.0) L 10/28/23 19:55 MCV 89.5 fL (80.0-100.0) 10/28/23 19:55 MCH 31.1 pg (25.0-34.0) 10/28/23 19:55 MCHC 34.8 g/dL (32.0-36.0) 10/28/23 19:55 RDW Std Deviation 44.5 fL (36.4-46.3) 10/28/23 19:55 RDW Coeff of Tana 13.6 % (11.5-14.5) 10/28/23 19:55 Plt Count 399 K/uL (130-400) 10/28/23 19:55 MPV 10.2 fL (9.4-12.4) 10/28/23 19:55 Immature Gran % (Auto) 0.9 % 10/28/23 19:55 Neut % (Auto) 78.0 % 10/28/23 19:55 Lymph % (Auto) 10.4 % 10/28/23 19:55 [place] % (Auto) 10.1 % 10/28/23 19:55 Eos % (Auto) 0.3 % 10/28/23 19:55 Baso % (Auto) 0.3 % 10/28/23 19:55 Neut # (Auto) 7.34 K/uL (1.40-6.50) H 10/28/23 19:55 Lymph # (Auto) 0.98 K/uL (1.20-3.40) L 10/28/23 19:55 [place] # (Auto) 0.95 K/uL (0.11-0.59) H 10/28/23 19:55 Eos # (Auto) 0.03 K/uL (0.00-0.50) 10/28/23 19:55 Baso # (Auto) 0.03 K/uL (0.00-0.20) 10/28/23 19:55 Immature Gran # (Auto) 0.08 K/uL (0.01-0.20) 10/28/23 19:55 PT 12.2 Seconds (9.0-12.0) H 10/28/23 23:02 INR 1.1 (0.9-1.1) 10/28/23 23:02 APTT 28 Seconds (21-31) 10/28/23 23:02 PTT Ratio 1.0 10/28/23 23:02 Sodium 133 mmol/L (136-145) L 10/28/23 19:55 Potassium 3.9 mmol/L (3.5-5.1) 10/28/23 19:55 Chloride 100 mmol/L (98-107) 10/28/23 19:55 Carbon Dioxide 23 mmol/L (21-32) 10/28/23 19:55 Anion Gap 10 (3-11) 10/28/23 19:55 BUN 11 mg/dl (6-23) 10/28/23 19:55 Creatinine 0.99 mg/dl (0.6-1.4) 10/28/23 19:55 Est Cr Clr Drug Dosing 61.9 ml/min 10/28/23 19:55 Est GFR ( Amer) 81.3 ml/min 10/28/23 19:55 Est GFR (Non-Af Amer) 70.1 ml/min 10/28/23 19:55 BUN/Creatinine Ratio 11.1 (10-20) 10/28/23 19:55 Glucose 170 mg/dl (70-99(Fasting)) H 10/28/23 19:55 Lactate 1.3 mmol/L (0.4-2.0) 10/28/23 23:12 Calcium 9.2 mg/dl (8.6-10.3) 10/28/23 19:55 Magnesium 1.6 mg/dl (1.7-2.4) L 10/28/23 23:02 Total Bilirubin 4.6 mg/dl (0.2-1.0) H 10/28/23 19:55 AST 473 U/L (13-39) H 10/28/23 19:55 ALT 373 U/L (7-52) H 10/28/23 19:55 Alkaline Phosphatase 381 U/L (34-104) H 10/28/23 19:55 Troponin I High Sens 21.9 pg/ml (0-20) H 10/28/23 23:02 Total Protein 7.1 gm/dl (6.0-8.3) 10/28/23 19:55 Albumin 3.7 gm/dl (3.4-5.0) 10/28/23 19:55 Globulin 3.4 gm/dl (2.5-4.0) 10/28/23 19:55 Albumin/Globulin Ratio 1.1 (0.9-2) 10/28/23 19:55 Lipase 100 U/L (11-82) H 10/28/23 19:55 Urine Color Dark Yellow 10/28/23 19:50 Urine Appearance Clear (Clear) 10/28/23 19:50 Urine pH 6.0 (4.5-7.5) 10/28/23 19:50 Ur Specific [place] 1.007 (1.000-1.030) 10/28/23 19:50 Urine Protein Negative (Negative) 10/28/23 19:50 Urine Glucose (UA) Negative (Negative) 10/28/23 19:50 Urine Ketones Negative (Negative) 10/28/23 19:50 Urine Blood Negative (Negative) 10/28/23 19:50 Urine Nitrite Negative (Negative) 10/28/23 19:50 Urine Bilirubin 1+ (Negative) H 10/28/23 19:50 Urine Urobilinogen Negative (Negative) 10/28/23 19:50 Ur Leukocyte Esterase Negative (Negative) 10/28/23 19:50 SARS-CoV-2 (PCR) NEGATIVE (Negative) 10/28/23 19:55 Influenza Type A (PCR) Negative (Neg) 10/28/23 19:55 Influenza Type B (PCR) Negative (Neg) 10/28/23 19:55 RSV (RT-PCR) Negative (Neg) 10/28/23 19:55 Impressions Abdomen/Pelvis CT 10/28/23 21:46 Exam(s): CT ABDOMEN + PELVIS With Contrast IV Amt: 118 cc opti 320 EXAM: CT Abdomen and Pelvis With Intravenous Contrast CLINICAL HISTORY: Reason for exam: fever, abd pain, recent GB removal. TECHNIQUE: Axial computed tomography images of the abdomen and pelvis with intravenous contrast. CTDI is 27.5 mGy and DLP is 2251.85 mGy-cm. Automated exposure control was utilized for the study. A dose lowering technique was utilized adhering to the principles of ALARA. CONTRAST: Patient received 118 cc opti 320 of IV contrast COMPARISON: No relevant prior studies available. FINDINGS: Lung bases: Unremarkable. No mass. No consolidation. ABDOMEN: Liver: Unremarkable. No mass. Gallbladder and bile ducts: 4.0 x 2.4 x 3.3 cm rim-enhancing postoperative rim-enhancing fluid collection in the gallbladder fossa. Status post cholecystectomy. No ductal dilation. Pancreas: Unremarkable. No mass. No ductal dilation. Spleen: Unremarkable. No splenomegaly. Adrenals: Unremarkable. No mass. Kidneys and ureters: Bilateral simple renal cysts measuring up to 2.1 cm in the lower pole of the right kidney. No further workup is required. No hydronephrosis. Stomach and bowel: Severe colonic diverticulosis without evidence of diverticulitis. No obstruction. PELVIS: Appendix: No findings to suggest acute appendicitis. Bladder: Unremarkable. No mass. Reproductive: Unremarkable as visualized. ABDOMEN and PELVIS: Intraperitoneal space: Unremarkable. No free air. No significant fluid collection. Bones/joints: No acute fracture. No dislocation. Soft tissues: Unremarkable. Vasculature: Unremarkable. No abdominal aortic aneurysm. Lymph nodes: Unremarkable. No enlarged lymph nodes. IMPRESSION: 4.0 x 2.4 x 3.3 cm rim-enhancing postoperative rim-enhancing fluid collection in the gallbladder fossa. Electronically signed by: Ten Shirley M.D. 10/28/23 23:37 PM Chest CTA 10/28/23 21:46 Exam(s): CTA CHEST IV Amt: 118 cc opti 320 EXAM: CT Angiography Chest With Intravenous Contrast CLINICAL HISTORY: Reason for exam: PE, sepsis, recent GB removal. TECHNIQUE: Axial computed tomographic angiography images of the chest with intravenous contrast. CTDI is 27.5 mGy and DLP is 2251.85 mGy-cm. Automated exposure control was utilized for the study. A dose lowering technique was utilized adhering to the principles of ALARA. MIP reconstructed images were created and reviewed. COMPARISON: 09/23/2021. FINDINGS: Pulmonary arteries: Unremarkable. No CT evidence of pulmonary embolism. Aorta: No acute findings. No thoracic aortic aneurysm. Lungs: Peripheral scarring within bilateral lung bases. No mass. No consolidation. Pleural space: Unremarkable. No significant effusion. No pneumothorax. Heart: Unremarkable. No cardiomegaly. No significant pericardial effusion. No evidence of RV dysfunction. Thyroid: 1.8 cm right thyroid nodule unchanged from prior study of 2020. Bones/joints: No acute fracture. No dislocation. Soft tissues: Unremarkable. Lymph nodes: Unremarkable. No enlarged lymph nodes. IMPRESSION: No CT evidence of pulmonary embolism. Electronically signed by: Ten Shirley M.D. 10/28/23 23:26 PM Chest X-Ray 10/28/23 21:51 SINGLE VIEW CHEST CLINICAL HISTORY: Generalized weakness. FINDINGS: An AP, portable, upright chest radiograph is compared to study dated 10/08/2023. The heart is enlarged noting atherosclerotic calcification of the thoracic aorta. The pulmonary vasculature is noncongested. Chronic interstitial thickening is similar to previous. There is bibasilar scarring/atelectasis. The lungs and pleural spaces are otherwise clear. No pneumothorax is seen. The skeletal structures are osteopenic. The bony thorax is grossly intact. IMPRESSION: Cardiomegaly with no active disease in the chest. ACT 112: Negative or not required by law. Electronically signed by: Lito Sheehan M.D. 10/28/2023 11:20 PM Diagnostic Findings EKG as per my interpretation :Rate 75, NSR, normal axis, 1 AVB, nonspecific T wave abnormalities
[2023-10-29] MEDS ORDERED: oxyCODONE HCL IR 5 MG TAB (IMMEDIATE RELEASE) PO PRN (01:01)
[2023-10-29] MEDS ORDERED: PROMETHAZINE HCL 6.25 MG in SODIUM CHLORIDE 0.9% 50 ML IV PRN (01:01)
[2023-10-29] MEDS ORDERED: MoRPHine SULFATE 2 MG/ML CARP IV PRN (01:01)
[2023-10-29] MEDS ORDERED: NSS + 20MEQ KCL 20 MEQ/1,000 ML BAG IV STA (01:05)
[2023-10-29] MEDS ORDERED: MAGNESIUM SULFATE / D5W 1 GM/100 ML BAG IV STA (01:05)
[2023-10-29 01:48] LABS: Basophils # (auto) 0.02 K/uL (0.00-0.20); Basophils % (auto) 0.3 %; Eosinophils % (auto) 1.6 %; Hematocrit (blood only) 34.8 % (42.0-52.0); Hemoglobin 11.6 g/dl (14.0-18.0); Immature Granulocytes # (auto) 0.05 K/uL (0.01-0.20); Immature Granulocytes % (auto) 0.8 %; Lymphocytes # (auto) 1.03 K/uL (1.20-3.40); Lymphocytes % (auto) 16.2 %; Mean Corpuscular Hemoglobin 30.6 pg (25.0-34.0); Mean Corpuscular Hgb Conc 33.3 g/dL (32.0-36.0); Mean Corpuscular Volume 91.8 fL (80.0-100.0); Monocytes # (auto) 0.84 K/uL (0.11-0.59); Monocytes % (auto) 13.2 %; Neutrophils # (auto) 4.31 K/uL (1.40-6.50); Neutrophils % (auto) 67.9 %; Platelet Count 330 K/uL (130-400); RDW Coefficient of Variation 13.7 % (11.5-14.5); RDW Standard Deviation 46.5 fL (36.4-46.3); Red Blood Count 3.79 M/uL (4.70-6.10); White Blood Count 6.35 K/ul (4.8-10.8)
--- NOTE | 2023-10-29 01:51 | Emergency Department Note ---
ED Visit Note I was consulted by the Advanced Practice Provider, Samara Evangelista PA-C. I personally made/approved the management plan and take responsibility for the patient management. I performed a substantive portion of the visit. This includes the aspects of: -MDM -I independently interpreted the following studies: CT imaging of the abdomen pelvis reveals a fluid collection within the gallbladder fossa. Patient with elevated LFTs and postoperative fluid collection in the gallbladder fossa. Samara did consult with general surgery. Patient will be admitted by internal medicine for further workup and management. .
[2023-10-29 02:02] LABS: Albumin Globulin Ratio 1.1 (0.9-2); Albumin Level 3.4 gm/dl (3.4-5.0); BUN Creatinine Ratio 11.5 (10-20); Bilirubin,Total 3.5 mg/dl (0.2-1.0); Calcium 8.5 mg/dl (8.6-10.3); Creatinine Clr Calc Pharmacy 63.9 ml/min; Est GFR (African American) 84.4 ml/min; Est GFR (Non-African American) 72.8 ml/min; Magnesium 1.8 mg/dl (1.7-2.4); Potassium 3.8 mmol/L (3.5-5.1); Total Protein 6.4 gm/dl (6.0-8.3)
[2023-10-29 02:11] LABS: Troponin I High Sensitivity 13.5 pg/ml (0-20)
--- OUTSIDE RECORDS SUMMARY | 2023-10-29 02:50 | External Medical Summary | Summary of Care ---
Author Name Unknown Organization [facility] Address [address] [place] [address] Phone [phone] Care Team Providers Care Ship Loader Name Role Phone David Brush MD Primary Care Provider Reason for Visit * Reason Onset Date Comments Order Request 10/14/2023 Encounter Details Date Type Department Care Team (Late st Contact Info) Description 10/14/2023 Telephone Family Medicine [address] [phone] David Brush MD [address] [place] [address] ER[place] Smith [id number] Order Request Allergies No known active allergiesdocumented as of this encounter (statuses as of 10/18/2023) Medications Medication Sig Dispensed Refills Start Date End Date Status [employer] SYSTEM W/DEVICE KITIndications:DM type 2, goal A1c [...] the morning. 90 Tablet 3 09/29/2023 Active documented as of this encounter (statuses as of 10/18/2023) Active Problems Problem Noted Date Diagnosed Date Acute cholecystitis 10/09/2023 Mild basilar atelectasis of both lungs 3 [...] as of this encounter (statuses as of 10/18/2023) Resolved Problems Problem Noted Date Diagnosed Date [...] cecum GI (gastrointestinal bleed) 09/27/2016 09/05/2017 Overview: [facility] 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 158/82 Vitamin D deficiency 07/02/2009 018 Overview: Vitamin D 16.9 Diverticulosis of colon with hemorrhage 02/23/2008 08/31/2012 Overview: Admitted to [place] with lower GI bleed Acute gastritis with [...] as of this encounter (statuses as of 10/18/2023) Immunizations Name Administration Dates Next Due COVID-19 [...] Date Recorded PHQ Adult Total Score 0 10/18/2023 Hunger Vital Sign Answer Date Recorded Within the past 12 months, y ou worried that your food would run out before you got the money to buy more. Never true 10/18/19 Within the past 12 months, t he food you bought just didn't last and you didn't have money to get more. Never true 10/18/2023 Sex and Gender Information Value Date Recorded Sex Assigned at Male 03/12/2021 11:05 AM EDT Gender Identity Male 03/12/2021 11:05 AM EDT Sexual Orientation Straight 03/12/2021 11 :05 AM EDT Job Start Date Occupation Industry Not on file Not on file Not on file documented as of this encounter Functional Status Functional Status Response Date of Assess ment Are you deaf or do you have serious difficulty h earing? No 10/09/2023 Are you blind or do you have serious difficulty seeing, even when wearing glasses? No 10/09/2023 Do you have serious difficul ty walking or climbing stairs? (5 years old or older) Yes 10/09/2023 Do you have difficulty dress ing or bathing? (5 years old or older) No 10/09/2023 Because of a physical, menta l, or emotional condition, do you have difficulty doing errands alone such as visiting a doctor s office or shopping? (15 years old or older) No 10/09/20 Cognitive Status Response Date of Assessm ent Because of a physical, menta l, or emotional condition, do you have serious difficulty concentrating, remembering, or making decisions? (5 years old or older) No 10/09/2023 documented as of this encounter Miscellaneous Notes * Telephone Encounter - Jennifer Burton LPN - 10/18/2023 2:29 PM EST Leila aware to fax orders, for him to sign. * Telephone Encounter - Arin White OSA - 10/14/2023 4:05 PM EST Leila wants to know if Dr Brush willl fill out follow up home luis enrique orders documented in this encounter Plan of Treatment Upcoming Encounters Date Type Department Care Team (Late st Contact Info) Description 10/25/2023 11:20 AM EST Office Visit Family Medicine [address] [place] [phone] David Brush MD [address] [place] [address] [place] Smith [id number] 10/26/2023 2:00 PM EST Office Visit General Surgery, [address] [address] Nia Arteaga PA-C [address] [place] [address] 01/10/2024 2:30 PM EDT Office Visit Family Medicine [address] [place] [phone] Rebekah Giron DO [address] [place] [address] [place] [address] 02/28/2024 1:00 PM EDT Office Visit Cardiology [address] [place] [address] Frederick Buck PA-C [address] [place] [address] 07/04/2024 3:00 PM EDT Nurse Only Ancillary [address] [place] [address] Eladioalley, Nurse Annual Wellness [address] [place] [address] [place] Smith [id number] Scheduled Procedures Name Priority Associated Diagnoses Date/Ti me COLONOSCOPY FLEXIBLE PROXIMAL DIAGNOSTIC Recall History of colon polyps Health Maintenance Due Date Last Done Comments Hepatitis B (1 of 3 - Risk 3-dose series) 2000 DTaP,Tdap,and Td Vaccines (2 - Td or Tdap) 06/07/2023 06/07/2013, 02/29/2008 COVID-19 Vaccine (4 - season) 2023 10/06/2021, 01/24/2021, 01/03/2021 Diabetic Foot Exam 06/24/2023 06/24/2022, 0 03/12/2021, 05/21/2020, Additional history exists Diabetic Eye Exam 11/18/2023 11/18/2022, , 06/29/2021, Additional history exists Albumin/Creatinine Ratio 12/13/2023 023, 11/02/2021, 01/08/2020, Additional history exists B-12 03/11/2024 03/11/2023, 08/17, 05/05/2021, Additional history exists HbA1c 04/09/2024 10/09/2023, 06/18, 03/11/2023, Additional history exists Depression Screening 06/28/2024 10/18/2023 COLONOSCOPY-EVERY 5 YRS AGES 18-100 07/19/2024 07/19/2019, 07/19/2019, 10/21/2016, Additional history exists GFR 10/15/2024 10/15/2023, 09/17, 10/13/2023, Additional history exists Pneumococcal Vaccine: 65+ Years [...] this encounter Medical Devices Implanted Type Area Director Energy Device Identifier Shelf Expiration Date Model / Serial / Lot Lens Intraoc 21.5 - [id number] - [id number] Implanted:Qty: 1 on 05/27/2020 by Da Carter MD at OR [facility] Left: Eye [employer] 09/15/2024 [id number] / [id number] / Lens Intraoc 22.5 - [id number] - [id number] Implanted:Qty: 1 on 06/03/2020 by Da Carter MD at OR [facility] Right: Eye [employer] 09/15/2024 [id number] / [id number] / [id number] documented as of this encounter Advance Directives Latest Code Status on File Code Status Date Activated Date Inactivated Comments Full Code 10/09/2023 1:18 PM 10/15/2023 6:49 PM Question Answer Comments Discussion of Advance Direct david occurred with: Patient Healthcare Agents on File Name Relationship Healthcare Agent Relationship Communication Arthur Solisjudah Adult Child First Alternat e Health Care Agent (per Health Care Power of Merchandise Executive document) Aakash Nick Sibling Health Care Agen t (per Health Care Power of Merchandise Executive document) Care Teams Ship Loader Relationship Specialty Start Date End Date David Brush MD [address] [place] [address] ERIC Smith [phone] PCP - General Family Medicine 07/22/15 documented as of this encounter
--- OUTSIDE RECORDS SUMMARY | 2023-10-29 02:50 | External Medical Summary | Summary of Care ---
Author Name Unknown Organization [facility] Address [address] [place] [address] Phone [phone] Care Team Providers Care Senior Architectural Designer Name Role Phone David Brush MD Primary Care Provider Reason for Visit * Reason Comments Follow Up Post gallbladder rem oval on 10/12/2023 Encounter Details Date Type Department Care Team (Late st Contact Info) Description 10/21/2023 10:40 AM EST Office Visit Family Medicine [address] [phone] Sepideh Caldwell PA-C [address] [place] [address] [place] [address] S/P cholecystectomy*; Type 2 diabetes mellitus with hemoglobin A1c goal of less than 7.5% (HCC); Dyslipidemia, goal LDL below 70; Adjustment disorder with depressed mood; BPH without obstruction/lower urinary tract symptoms Allergies No known active allergiesdocumented as of this encounter (statuses as of 10/21/2023) Medications Medication Sig Dispensed Refills Start Date End Date Status Bookioo SYSTEM W/DEVICE KITIndications:DM type 2, goal A1c [...] the morning. 90 Tablet 3 09/22/2022 Active Fluticasone Propionate 50 MCG/ACT Nasal Suspension [...] the morning. 90 Tablet 1 03/30/2023 Active Magnesium Oxide 400 MG Oral TabletIndications: Hypomagnesemia Take 1 Tablet by mouth daily. 90 Tablet 3 04/08/2023 Active metFORMIN HCl ER 500 MG Oral [...] the morning. 90 Tablet 3 09/29/2023 Active Cephalexin 500 MG Oral Capsule (Keflex)Indication s:Wound infection after surgery Take 1 Capsule by mouth in the morning and 1 Capsule at noon and 1 Capsule before bedtime. Do all this for 10 days. 30 Capsule 0 10/19/2023 4 Active Atorvastatin Calcium 40 MG Oral Tablet (Lipitor)Indicatio ns:Type 2 diabetes mellitus with hemoglobin A1c goal of less than 7.5% (HCC),Dyslipidemia , goal LDL below 70 Take 1 tablet by mouth once daily 90 Tablet 1 10/21/2023 Active Citalopram Hydrobromide 20 MG Oral Tablet (CeleXA)Indication s:Adjustment disorder with depressed mood Take 1 Tablet by mouth in the morning. 90 Tablet 1 10/21/2023 Active Gabapentin 100 MG Oral Capsule (Neurontin) 1 tab three times daily 270 Capsule 3 10/21/2023 Active Tamsulosin HCl 0.4 MG Oral Capsule (Flomax)Indication s:BPH without obstruction/lower urinary tract symptoms Take 2 Capsules by mouth in the morning. 180 Capsule 1 10/21/2023 Active Gabapentin 100 MG Oral Capsule (Neurontin) 1 tab three times daily 270 Capsule 3 11/18/2022 4 Discontinue d(Refill) Tamsulosin HCl 0.4 MG Oral Capsule (Flomax)Indication s:BPH without obstruction/lower urinary tract symptoms Take 2 Capsules by mouth in the morning. 180 Capsule 1 03/30/2023 4 Discontinue d(Refill) Citalopram Hydrobromide 20 MG Oral Tablet (CeleXA)Indication s:Adjustment disorder with depressed mood Take 1 Tablet by mouth in the morning. 90 Tablet 1 05/17/2023 4 Discontinue d(Refill) Atorvastatin Calcium 40 MG Oral Tablet (Lipitor)Indicatio ns:Type 2 diabetes mellitus with hemoglobin A1c goal of less than 7.5% (HCC),Dyslipidemia , goal LDL below 70 Take 1 tablet by mouth once daily 90 Tablet 1 07/06/2023 4 Discontinue d(Refill) Hospital, Clinic, or Other Facility [...] as of this encounter (statuses as of 10/21/2023) Active Problems Problem Noted Date Diagnosed Date [...] as of this encounter (statuses as of 10/21/2023) Resolved Problems Problem Noted Date Diagnosed Date [...] cecum GI (gastrointestinal bleed) 09/27/2016 09/05/2017 Overview: [facility] 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 158/82 Vitamin D deficiency 07/02/2009 018 Overview: Vitamin D 16.9 Diverticulosis of colon with hemorrhage 02/23/2008 08/31/2012 Overview: Admitted to [facility] with lower GI bleed Acute gastritis with [...] as of this encounter (statuses as of 10/21/2023) Immunizations Name Administration Dates Next Due COVID-19 [...] money to buy more. Never true 10/18/19 24 Within the past 12 months, t he [...] Sign Reading Time Taken Comments Blood Pressure 120/70 10/21/2023 10:39 AM EST Pulse 69 10/21/2023 10:39 AM EST Temperature 35.7 C (96.2 F) 10/21/2023 10:[address] Respiratory Rate - - Oxygen Saturation 98% 10/21/2023 10:39 AM EST Inhaled Oxygen Concentration - - Weight 96.2 kg (212 lb) 10/21/2023 10:39 AM EST Height - - Body Mass Index 31.77 10/09/2023 12:38 PM EST documented in this encounter Functional Status Functional Status Response [...] No 10/09/2023 documented as of this encounter Progress Notes * Sepideh Caldwell PA-C - 10/21/2023 10:36 AM EST Nursing Notes: Maegan Bauer LPN 10/21/23 1040 Signed Chief Complaint Patient presents with Follow Up Post gallbladder removal on 10/12/2023 Gallbladder removal on 10/12/2023 Keflex started yesterday Sites very painful and after starting abx the pain had improved The patient has been properly identified by confirmation of name and date of . Pt here today with incisional pain from recent cholecystectomy. This was done 10/12. Pt had a drainin and the area around the drain was very red and sore. Pt no longer has the drain but the area is still sore. Home health has been coming in and they called PCP to get started on abx. This was called in yesterday. Pt has taken 2 doses and it seems to really be helping. Pt denies fever, chills. Hasappt next week, with surgeon. Has not called surgeon about the pain and redness at incision site. Review of patient's allergies indicates: No Known Allergies Current Outpatient Medications Medication Sig Dispense Refill Bookioo SYSTEM W/DEVICE KIT Use up to four times a day as directed 1 Kit 0 LANCETS MISC test once a day 3 Box 1 Aspirin 81 MG Oral Tablet Delayed Release Take 1 Tablet by mouth in the morning. Vitamin D3 50 MCG (2000 UT) Oral Tablet Take 1 Tablet by mouth in the morning. Acetaminophen 500 MG Oral Tablet (Tylenol) Take 1 Tablet by mouth every 6 hours as needed. Systane 0.4-0.3 % Ophthalmic Solution (Polyethyl Glycol-Propyl Glycol) Instill into eye as needed for Dry eyes. Pantoprazole Sodium 40 MG Oral Tablet Delayed [...] by mouth once daily 90 Tablet 1 metFORMIN HCl ER 500 MG Oral Tablet Extended Release 24 Hour (Glucophage XR) TAKE 2 TABLETS BY MOUTH IN THE MORNING AND 2 TABS BEFORE BEDTIME 360 Tablet 1 LikeabilityToCubeTree In Vitro Strip (Glucose Blood) Use to test blood sugar up to twice a day as directed. DxE11.9 200 Strip 3 Clopidogrel Bisulfate 75 MG Oral Tablet (pLAVix) Take 1 Tablet by mouth in the morning. 90 Tablet 3 Cephalexin 500 MG Oral Capsule (Keflex) Take 1 Capsule by mouth in the morning and 1 Capsule at noon and 1 Capsule before bedtime. Do all this for 10 days. 30 Capsule 0 Current Facility-Administered Medications Medication Dose Route Frequency Provider Last Rate Last Admin Albuterol Sulfate (Proventil) (2.5 MG/3ML) 0.083% inhalation solution 2.5 mg 2.5 mg Nebulizer PRN Jung Gregory MD 2.5 mg at 01/14/23 1315 Albuterol Sulfate (Proventil) (5 MG/ML) 0.5% *conc* inhalation solution 2.5 mg 2.5 mg Nebulizer Jung Zaragoza MD Past Medical History: Diagnosis Date Acute cholecystitis 10/08/2023 admitted [facility] transferred to [facility] Acute gastritis with hemorrhage 02/23/2008 Adjustment disorder [...] disc Diverticulitis of colon 08/22/2004 admitted to [facility] for lower GI bleed. 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 Thyroid nodule 12/30/2018 2 cm right lobe TIA (transient ischemic attack) 12/30/2018 [facility] transient right arm weakness TIA (transient ischemic attack) 03/11/2022 transient sx, TIA vs epilepsy. 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 Employer: [employer] Tobacco Use Smoking status: Former Packs/day: 2.00 Years: 23.00 Additional pack years: 0.00 Total pack years: 46.00 Types: Cigarettes Start date: 1952 Quit date: 10/17/1984 Years since quittin.0 Smokeless tobacco: Former Types: Chew Vaping Use [...] on file Food Insecurity: No Food Insecurity (10/18/2023) Hunger Vital Sign Worried About Running Out of Food in the Last Year: Never true Ran Out of Food in the Last Year: Never true Transportation Needs: Not on file Physical Activity: Not on file Stress: Not on file Social Connections: Not on file Intimate Partner Violence: Not on file Housing Stability: Not on file O:Blood pressure 120/70, pulse 69, temperature 35.7 C (96.2 F), temperature source Tympanic, weight 96.2 kg (212 lb), SpO2 98%. GENERAL: alert, healthy, and no distress ABDOMEN: small incision at right abdomen with mild erythema. No drainage. Mild tenderness. A:Type 2 diabetes mellitus with hemoglobin A1c goal of less than 7.5% ([facility] - Atorvastatin Calcium 40 MG Oral Tablet (Lipitor); Take 1 tablet by mouth once daily Dyslipidemia, goal LDL below 70 - Atorvastatin Calcium 40 MG Oral Tablet (Lipitor); Take 1 tablet by mouth once daily Adjustment disorder with depressed mood - Citalopram Hydrobromide 20 MG Oral Tablet (CeleXA); Take 1 Tablet by mouth in the morning. BPH without obstruction/lower urinary tract symptoms - Tamsulosin HCl 0.4 MG Oral Capsule (Flomax); Take 2 Capsules by mouth in the morning. Other orders - Gabapentin 100 MG Oral Capsule (Neurontin); 1 tab three times daily Continue keflex. If the pain worsens, needs to call surgeon. Any questions/problems, please call. If anything changes, worsens, develops new sx, please call JAY. Follow Up: Return if symptoms worsen or fail to improve. Sepideh Caldwell PA-C documented in this encounter Nursing Notes * Maegan Bauer LPN - 10/21/2023 10:29 AM EST Chief Complaint Patient presents with Follow Up Post gallbladder removal on 10/12/2023 Gallbladder removal on 10/12/2023 Keflex started yesterday Sites very painful and after starting abx the pain had improved The patient has been properly identified by confirmation of name and date of . documented in this encounter Plan of Treatment Upcoming Encounters Date Type Department Care Team (Late st Contact Info) Description 10/26/2023 2:00 PM EST Office Visit General Surgery, [address] [address] Nia Arteaga PA-C [address] [place] [address] 01/10/2024 2:30 PM EDT Office Visit Family Medicine [address] [place] [phone] Rebekah [address] [place] [address] 02/28/2024 1:00 PM EDT Office Visit Cardiology [address] [place] [address] Frederick Buck PA-C [address] [place] [address] 07/04/2024 3:00 PM EDT Nurse Only Ancillary [address] [place] [address] Jodi, Nurse [address] [place] [address] Scheduled Procedures Name Priority Associated Diagnoses Date/Ti [...] 04/09/2024 10/09/2023, 06/18, 03/11/2023, Additional history exists COLONOSCOPY-EVERY 5 YRS AGES 18-100 07/19/2024 07/19/2019, 07/19/2019, 10/21/2016, Additional history exists GFR 10/15/2024 10/15/2023, 09/17, 10/13/2023, Additional history exists Depression Screening 10/18/2024 10/18/2023 Pneumococcal Vaccine: 65+ Years Completed 12/31/2019, 07/22/2015, [...] this encounter Medical Devices Implanted Type Area Clicker Operator Device Identifier Shelf Expiration Date Model / Serial / Lot Lens Intraoc 21.5 - [id number] - [id number] Implanted:Qty: 1 on 05/27/2020 by Da Carter MD at OR [facility] Left: Eye [employer] 09/15/2024 [id number] / [id number] / Lens Intraoc 22.5 - [id number] - [id number] Implanted:Qty: 1 on 06/03/2020 by Da Carter MD at OR [facility] Right: Eye [employer]CH [employer] LOMB 09/15/2024 [id number] / [id number] / [id number] documented as of this encounter Visit Diagnoses Diagnosis S/P cholecystectomy- Primary Other acquired absence of organ Type 2 diabetes mellitus with hemoglobin A1c goal of less than 7.5% (HCC) Dyslipidemia, goal LDL below 70 Other and unspecified hyperlipidemia Adjustment disorder with depressed mood BPH without obstruction/lower urinary tract symptoms Hypertrophy of prostate without urinary obstruction and other lower urinary tract symptoms (LUTS) documented in this encounter Advance Directives Latest Code Status on File Code Status Date Activated Date Inactivated Comments Full Code 10/09/2023 1:18 PM 10/15/2023 6:49 PM Question Answer Comments Discussion of Advance Direct david occurred with: Patient Healthcare Agents on File Name Relationship Healthcare Agent Relationship Communication Arthur Nick Adult Child First Alternat e Health Care Agent (per Health Care Power of Circle Saw Operator document) Aakash Nick Sibling Health Care Agen t (per Health Care Power of Circle Saw Operator document) Care Teams Senior Architectural Designer Relationship Specialty Start Date End Date David Brush MD [address] [place] [address] [place] [phone] PCP - General Family Medicine 07/22/15 documented as of this encounter
--- OUTSIDE RECORDS SUMMARY | 2023-10-29 02:50 | External Medical Summary | Summary of Care ---
Author Name Unknown Organization [facility] Address [address] [place] [address] Phone [phone] Care Team Providers Care Seat Installer Name Role Phone David Brush MD Primary Care Provider Reason for Visit * Reason Comments Follow Up Encounter Details Date Type Department Care Team (Late st Contact Info) Description 10/26/2023 2:00 PM EST Office Visit General Surgery, [place] [address] [place], [place] [phone] Nia Arteaga PA-C [address] [place], [place] [phone] S/P laparoscopic cholecystectomy* Allergies No known active allergiesdocumented as of this encounter (statuses as of 10/26/2023) Medications Medication Sig Dispensed Refills Start Date End Date Status [employer] SYSTEM W/DEVICE KITIndications:DM type 2, goal A1c [...] 09/29/2023 Active Cephalexin 500 MG Oral Capsule (Keflex)Indications :Wound infection after surgery Take 1 Capsule by mouth in the morning and 1 Capsule at noon and 1 Capsule before bedtime. Do all this for 10 days. 30 Capsule 0 10/19/2023 10/29/2023 Active Atorvastatin Calcium 40 MG Oral Tablet [...] the morning. 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 158/82 Vitamin D deficiency 07/02/2009 018 Overview: Vitamin D 16.9 Diverticulosis of colon with hemorrhage 02/23/2008 08/31/2012 Overview: Admitted to [facility] with lower GI bleed Acute gastritis with [...] as of this encounter (statuses as of 10/26/2023) Immunizations Name Administration Dates Next Due COVID-19 [...] Sign Reading Time Taken Comments Blood Pressure 132/77 10/26/2023 1:37 PM EST Pulse 86 10/26/2023 1:37 PM EST Temperature 36 C (96.8 F) 10/26/2023 1:37 PM EST Respiratory Rate - - Oxygen Saturation - - Inhaled Oxygen Concentration - - Weight 93.8 kg (206 lb 11.2 oz) 10/26/2023 1:37 PM EST Height 174 cm (5' 8.5") 10/26/2023 1:37 PM EST Body Mass Index 30.97 10/26/2023 1:37 PM EST documented in this encounter Functional [...] as of this encounter Progress Notes * Nia Arteaga PA-C - 10/26/2023 2:00 PM EST Angel Nick presents for hospital discharge follow up. He was admitted to [facility] on 10/09/23 for abdominal pain. He had a laparoscopic cholecystectomy with Dr. Waddell on 10/12/23. He was dischargedhome on 10/15/23. He saw his PCP the other day due to the drain site appearing red. PCP prescribed an antibiotic. Redness has improved. He is also taking a probiotic. Admits to mild surgical site pain. Taking Tylenol 2 - 3 times daily. Denies concerns with the surgical site. Tolerating his usual diet. No N/V. BM have been loose, about 3 - 4 times daily. Voids without difficulty Denies fever, chills, sweats. BP 132/77 | Pulse 86 | Temp 36 C (96.8 F) | Ht 1.74 m (5' 8.5") | Wt 93.8 kg (206 lb 11.2 oz) |BMI 30.97 kg/m | BSA 2.13 m Patient appears in no acute distress. Abdomen is soft, nontender. Incisions and drain site are clean, dry, intact. There is no erythema, edema, ecchymosis, induration, or fluctuance. Pathology discussed with the patient: A. Gallbladder, cholecystectomy: Chronic calculous cholecystitis. Impression: 83 y/o male doing well after laparoscopic cholecystectomy. Plan: Continue antibiotic as prescribed. Continue probiotic for one month after antibiotic is completed. Emphasized the importance of staying hydrated. Tylenol PRN for pain. Diet as tolerated Shower daily, allowing soap and water to run over the incisions. Do not scrub or soak the incisions. No strenuous activity; no lifting, pushing, or pulling more than 20 lbs for 4 weeks post op RTC PRN Nia Arteaga PA-C documented in this encounter Plan of Treatment Upcoming Encounters Date Type Department Care Team (Late st Contact Info) Description 01/10/2024 2:30 PM EDT Office Visit Family Medicine [address] [place] [phone] Rebekah Giron [address] [place] [address] 02/28/2024 1:00 PM EDT Office Visit Cardiology [address] [place] [address] Frederick Bukc PA-C [address] [place] [address] 07/04/2024 3:00 PM EDT Nurse Only Ancillary [address] [place] [address] Jodi, Nurse [address] [place] [address] Scheduled Procedures Name Priority Associated Diagnoses Date/Ti [...] this encounter Medical Devices Implanted Type Area Stapler Hand Device Identifier Shelf Expiration Date Model / Serial / Lot Lens Intraoc 21.5 - [id number] - [id number] Implanted:Qty: 1 on 05/27/2020 by RaulDa ham MD at OR [facility] Left: Eye [employer]OM[employer] 09/15/2024 [id number] / [id number] / Lens Intraoc 22.5 - [id number] - [id number] Implanted:Qty: 1 on 06/03/2020 by Da Carter MD at OR [facility] Right: Eye [employer]CH [employer]OMB 09/15/2024 [id number] / [id number] / [id number] documented as of this encounter Visit Diagnoses Diagnosis S/P laparoscopic cholecystectomy- Primary Other postprocedural status documented in this encounter Advance Directives Latest Code Status on File Code Status Date Activated Date Inactivated Comments Full Code 10/09/2023 1:18 PM 10/15/2023 6:49 PM Question Answer Comments Discussion of Advance Direct david occurred with: Patient Healthcare Agents on File Name Relationship Healthcare Agent Relationship Communication Arthur Nick Adult Child First Alternat e Health Care Agent (per Health Care Power of River Driver document) Aakash Nick Sibling Health Care Agen t (per Health Care Power of River Driver document) Care Teams Seat Installer Relationship Specialty Start Date End Date David Brush MD [address] [place] [address] [place] [address] PCP - General Family Medicine 07/22/15 documented as of this encounter
--- OUTSIDE RECORDS SUMMARY | 2023-10-29 02:50 | External Medical Summary | Summary of Care ---
Author Name Unknown Organization [facility] Address [address] [place] [address] Phone [phone] Care Team Providers Care Thermal Cutter Helper Name Role Phone David Brush MD Primary Care Provider Reason for Visit * Reason Onset Date Comments Advice 10/19/2023 Encounter Details Date Type Department Care Team (Late st Contact Info) Description 10/19/2023 Telephone Family Medicine [address] [phone] David Brush MD [address] [place], [place] [address] [phone] Advice Allergies No known active allergiesdocumented as of this encounter (statuses as of 10/24/2023) Medications Medication Sig Dispensed Refills Start Date End Date Status ReachLocal SYSTEM W/DEVICE KITIndications:DM type 2, goal A1c [...] days. 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 158/82 Vitamin D deficiency 07/02/2009 018 Overview: Vitamin D 16.9 Diverticulosis of colon with hemorrhage 02/23/2008 08/31/2012 Overview: [facility] with lower GI bleed Acute gastritis with [...] as of this encounter (statuses as of 10/24/2023) Immunizations Name Administration Dates Next Due COVID-19 [...] Miscellaneous Notes * Telephone Encounter - David Brush MD - 10/19/2023 3:16 PM EST In a perfect world, the surgeon should dealing with this, since they did the procedure. But, yeah. * Telephone Encounter - Fina Michelle LPN - 10/19/2023 2:59 PM EST I spoke with Charmaine from [facility]- she states pt had recent cholecystectomy, she states the incision site is looking infected, redness, it's now dry, his vitals are all normal. Pt scheduled for Tuesday with [facility]. Did you want to send abx in the mean time? Pharmacy confirmed. We will call pt back & let him know if you do. * Telephone Encounter - Lito Lutz OSA - 10/19/2023 2:51 PM EST Reason for patient's call: Patient recently had a procedure. Giving medical updates. Site is red, painful, and has a gap. Caller was transferred to Fina at the clinic. documented in this encounter Plan of Treatment Upcoming Encounters Date Type Department Care Team (Late st Contact Info) Description 10/26/2023 2:00 PM EST Office Visit General Surgery, [place] [address] [facility] [place] [address] Nia [facility]teaga [facility] [address] [facility] [address] 01/10/2024 2:30 PM EDT Office Visit Family Medicine [address] [place] [phone] [address] [place] [address] 02/28/2024 1:00 PM EDT Office Visit Cardiology [address] [place] [address] Frederick Buck PA-C [address] [place] [address] 07/04/2024 3:00 PM EDT Nurse Only Ancillary [address] [place] [address] [place], Nurse [address] [place] [address] Scheduled Procedures Name Priority Associated Diagnoses Date/Ti [...] this encounter Medical Devices Implanted Type Area Improvement Lead Device Identifier Shelf Expiration Date Model / Serial / Lot Lens Intraoc 21.5 - [id number] - [id number] Implanted:Qty: 1 on 05/27/2020 by Da Carter MD at OR [facility] Left: Eye [employer] 09/15/2024 [id number] / [id number] / Lens Intraoc 22.5 - [id number] - [id number] Implanted:Qty: 1 on 06/03/2020 by Da Carter MD at OR [facility] Right: Eye [employer] 09/15/2024 [id number] / [id number] / [id number] documented as of this encounter Visit Diagnoses Diagnosis Wound infection after surgery- Primary Other postoperative infection documented in this encounter Advance Directives Latest Code Status on File Code Status Date Activated Date Inactivated Comments Full Code 10/09/2023 1:18 PM 10/15/2023 6:49 PM Question Answer Comments Discussion of Advance Direct david occurred with: Patient Healthcare Agents on File Name Relationship Healthcare Agent Relationship Communication Arthur Nick Adult Child First Alternat e Health Care Agent (per Health Care Power of Transit Department Clerk document) Aakash Nick Sibling Health Care Agen t (per Health Care Power of Transit Department Clerk document) Care Teams Thermal Cutter Helper Relationship Specialty Start Date End Date David Brush MD [address] [place] [address] [place] [phone] PCP - General Family Medicine 07/22/15 documented as of this encounter
--- OUTSIDE RECORDS SUMMARY | 2023-10-29 02:51 | External Medical Summary ---
Author Name Unknown Address Unknown Organization : Laboratory Report Ordering Provider Test Date Status IZABELA LANTIGUA 10/14/2023 07:14:13 Final Observation Date Value Abnormality Reference (Units ) Status Glucose Point of Care 10/14/2023 07:14:13 155 Above high normal 70-120 (mg/dL) Final Performing Location
--- OUTSIDE RECORDS SUMMARY | 2023-10-29 02:51 | External Medical Summary ---
Author Name Unknown Address Unknown Organization [id number]:[facility] [address] [place] [address] Laboratory Report Ordering Provider Test Date Status SPENCER SOLANO 10/15/2023 07:29:00 Final Observation Date Value Abnormality Reference (Units ) Status Phosphate 10/15/2023 07:29:00 3.0 2.5-4.8 (m g/dL) Final Performing Location [facility] [address] [place] [id number]
--- OUTSIDE RECORDS SUMMARY | 2023-10-29 02:51 | External Medical Summary ---
Author Name Unknown Address Unknown Organization : Laboratory Report Ordering Provider Test Date Status IZABELA LANTIGUA 10/15/2023 11:35:15 Final Observation Date Value Abnormality Reference (Units ) Status Glucose Point of Care 10/15/2023 11:35:15 166 Above high normal 70-120 (mg/dL) Final Performing Location
--- OUTSIDE RECORDS SUMMARY | 2023-10-29 02:51 | External Medical Summary ---
Author Name Unknown Address Unknown Organization [id number]:[facility] - [facility] [address] [facility] [address] [place] [address] Laboratory Report Ordering Provider Test Date Status MABEL DE LEON 10/14/2023 08:23:00 Final Observation Date Value Abnormality Reference (Units ) Status WBC, Total 10/14/2023 08:23:00 8.97 4.00-10.80 (K/uL) Final RBC 10/14/2023 08:23:00 4.01 4.50-5.25 (M/uL) Final Hemoglobin 10/14/2023 08:23:00 12.4 Below low normal 14.0-16.8 (g/dL) Final HCT 10/14/2023 08:23:00 38.6 Below low normal 40.0-48.4 (%) Final MCV 10/14/2023 08:23:00 96.3 82.0-99.5 (fL) Final MCH 10/14/2023 08:23:00 30.9 27.0-34.0 (pg) Final MCHC 10/14/2023 08:23:00 32.1 32.0-36.0 (g/dL) Final RDW 10/14/2023 08:23:00 13.9 11.5-15.5 (%) Final Platelets 10/14/2023 08:23:00 163 140-400 (K/uL) Final MPV 10/14/2023 08:23:00 10.1 6.6-11.1 (fL) Final Nucleated erythrocytes/100 leukocytes [Ratio] in Blood by Automated count 10/14/2023 08:23:00 0 <=0 (/100 WBCs) Final Performing Location [facility]ORY [facility] - [address] [place] [id number]
--- OUTSIDE RECORDS SUMMARY | 2023-10-29 02:51 | External Medical Summary | Summary of Care ---
Author Name Unknown Organization [facility] Address [address] [place] [address] Phone [phone] Care Team Providers Care Impression Printer Name Role Phone David Palm MD Primary Care Provider Reason for Visit * Auth/Cert Specialty Diagnoses / Procedures Referred By Casimiro perry Referred To Contact Diagnoses Cholecystitis Acute cholecystitis Cholecystitis Referral ID Status Reason Start Date Expiration Date Visits Re quested Visits Authorized [id number] Encounter Details Date Type Department Care Team (Latest Contact Info) Description 10/09/2023 12:23 PM EST - 10/15/2023 2:48 PM EST Hospital Encounter [id number] [facility] 6th Floor [address], [place] [id number] Jordan Urrutia MD [address] [place] [address] NOCTURNAL OXIMETRY REPORT IMAGE Discharge Disposition: Home - Self Care Allergies No known active allergiesdocumented as of this encounter (statuses as of 10/16/2023) Medications Medication Sig Dispensed Refills Start Date End Date Status velingo SYSTEM W/DEVICE KITIndications:DM type 2, goal A1c [...] the morning. 90 Tablet 3 09/29/2023 Active oxyCODONE HCl 5 MG Oral Tablet (Oxy IR) Take 1 Tablet by mouth every 12 hours as needed for severe incisional pain. 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 158/82 Vitamin D deficiency 07/02/2009 018 Overview: Vitamin D 16.9 Diverticulosis of colon with hemorrhage 02/23/2008 08/31/2012 Overview: Admitted to [place] with lower GI bleed Acute gastritis with [...] as of this encounter (statuses as of 10/16/2023) Immunizations Name Administration Dates Next Due COVID-19 [...] Sign Reading Time Taken Comments Blood Pressure 167/76 10/15/2023 11:30 AM EST Pulse 60 10/15/2023 11:30 AM EST Temperature 36.2 C (97.2 F) 10/15/2023 11:[address] Respiratory Rate 16 10/15/2023 11:30 AM EST Oxygen Saturation 95% 10/15/2023 11:30 AM EST Inhaled Oxygen Concentration - - Weight 95.3 kg (210 lb) 10/09/2023 12:38 PM EST Height 174 cm (5' 8.5") 10/09/2023 12:38 PM EST Body Mass Index 31.47 10/09/2023 12:38 PM EST documented in this [...] No 10/09/2023 documented as of this encounter Discharge Instructions * Discharge Instr - AVS* Jose L Viveros MD - 10/11/2023 9:24 AM EST Discharge Date: 10/15/23 Check your Patient Education Brochure for further information. You may call Dr. Waddell of the department of General Surgery at [phone] during business hours for any questions or test results. For after-hours emergencies, call [phone] and have the provider police liaison officer paged. The information below provides you with the instructions and the list of medications you need to betaking following discharge from the hospital. If you have any questions, please ask before leaving.Please carry this letter with you when you see your doctor in the clinic. If you have questions, you can reach us at the numbers above. Brief summary of your inpatient care: You were admitted to [facility] on 10/09/23 forabdominal pain. You had HIDA scan done on 10/10/23 which did not show acute cholecystitis. You had surgery on 10/12/23. You tolerated the procedure . You had adequate pain control, and tolerated a diet before discharge. Your primary diagnosis at discharge was acute on chronic cholecystitis. Urgent Cholecystectomy Please follow these instructions carefully: Activity: As tolerated. No lifting greater than 10 pounds for 4 weeks. Getting up and walking after surgery aids recovery in many ways. Much of the pain after major surgery is from muscle spasm. Getting out of bed, sitting and walking help you loosen up and actually reduce your pain. This also helps your breathing and quickens the recovery of your bowel function. Walking and using the stairs is permitted. You should try to get lots of rest. No deep bending and stretching. You should avoid full activity and vigorous exercise for about 4 weeks after surgery. You may climb stairs. No driving for 1 week or while taking prescription pain medication. Diet: Regular diet. Pain Control Regimen: *Take acetaminophen (Tylenol) 500mg tablets: 2 tabs (1000mg) every 8 hours for 3 days. Then 1 tab (500mg) every 4 hours as needed for pain. Do not exceed acetaminophen 3000mg within 24 hours. * Take Oxycodone 5 mg every 12 hours as needed for severe incisional pain. Incisions: DERMABOND surgical adhesive covers your incision. This will begin to fall off in about 2 weeks. Do not pick at the wound. Do not apply any ointment or lotion to the incision. Wash incisions with soap and water and keep dry. You may shower but avoid tub bathing/swimming for 7 days. Previous CARRIE site: you may remove the gauze dressings tomorrow. Change dressings daily and as needed. The opening usually heals in couple days. If the wound is healed, you may leave the wound open to air. Constipation: It is normal not to have a bowel movement for up to 3 days after surgery due to anesthesia. To prevent constipation, drink plenty of liquids and eat plenty of fiber which includes fruits and vegetables. Follow Up Appointment: Follow up with Nia Arteaga PA-C on 10/26/23. Follow up with Dr Palm in 1 week. Call the surgeon with any of the following symptoms: Fever higher than 101 degrees Fahrenheit. Severe pain not relieved by pain medication. Inability to urinate. Excessive bleeding, swelling, redness, or drainage from any of the incisions. Additional instruction: - Oxygen 2L/min when you ambulate and 2 L/min when you sleep. Follow up with your primary care provider for further management. Date you may return to work or school: N/A Inpatient test results pending: None Operations & Procedures: Laparoscopic cholecystectomy Complications: none Advance Directive Documented: Advance Directive Does the Patient have an Advance Directive? Yes * Care Mgmt Instr - AVS* Rebekah Donnelly LSW - 10/15/2023 2:13 PM EST Patient Care Team: Pati Webber, RN as Instructor Watch [employer] (Registered Nurse) If you have Home Care Services, you should have a visit within 48 hours. [facility] starting 10/18/23 [employer] for O2 , call them if you haven't heard about delivery by 5pm. documented in this encounter Progress Notes * Catalina Colmenares MD - 10/12/2023 5:04 AM EST PROGRESS NOTE - Tra[place]/Emergency [place] [facility] [address] Name: Angel Nick Location: [facility] B640/B Date: 10/12/2023 Time: 5:34 AM DIAGNOSIS: RUQ Abdominal Pain, possible Acute Cholecystitis PROCEDURE: None this admission DATE OF SURGERY: N/A POST OP DAY: N/A SUBJECTIVE: NAEO, VSS, afebrile. Patient NPO for OR this morning. Denies abdominal pain, chest pain, SOB, nausea, vomiting. Doing well, ready for surgery. OBJECTIVE: Most Recent Vital Signs: BP: 162 mmHg/88 mmHg (10/12/23324) Pulse: 56 (10/12/23324) Temp: 36.61 C (10/12/23324) Resp: 16 (10/12/23324) SpO2: 96 % (10/12/23324) Vital Signs Last 24 Hours: Systolic BP: Most Recent Systolic BP Av.7 mmHg Min: 146 mmHg Max: 188 mmHg Temperature: Most Recent Temperature Av.4 C Min: 36.11 C Max: 36.72 C Pulse: Pulse Av.3 Min: 56 Max: 70 Respirations: Resp Av.7 Min: 16 Max: 18 SpO2: SpO2 Av.5 % Min: 94 % Max: 98 % In / Out Past 24 Hrs: Intake/Output Summary (Last 24 hours) at 10/12/2023 0534 Last data filed at 10/11/2023 1726 Gross per 24 hour Intake 240 ml Output 425 ml Net -185 ml Physical Exam: PHYSICAL EXAM: General: Well-appearing, non-toxic & NAD. Conversational. Resting comfortably in hospital bed, sitting up. HEENT: Normocephalic, atraumatic. Mucous membranes moist. EOMI. Pulm: Breathing comfortably. Normal respiratory effort with good air movement bilaterally. No respiratory distress. CV: Warm, well-perfused. No extremity swelling or pitting edema Abdomen: Soft. Non-distended. Non-TTP. : Wing present. MSK: No gross abnormalities. , Strength intact - 5/5 to all extremities. , No weakness. Skin: Grossly intact., No rashes, excoriations or discoloration. Neuro: Conscious, alert. Grossly intact without FNDs Psych: Normal mood, appropriate affect. LABS: Recent Results (from the past 12 hour(s)) GLUCOSE METER, POINT OF CARE Collection Time: 10/11/23 8:37 PM Result Value Ref Range Glucose Meter 161 (H) 70 - 120 mg/dL BASIC METABOLIC PANEL Collection Time: 10/12/23 4:26 AM Result Value Ref Range BUN 25 (H) 6 - 20 mg/dL Creatinine 1.2 0.6 - 1.2 mg/dL Estimated Glomerular Filtration Rate 58 (L) >=60 mL/min Sodium 141 135 - 146 mmol/L Potassium 4.0 3.5 - 5.1 mmol/L Chloride 106 98 - 107 mmol/L CO2 26 22 - 32 mmol/L Anion Gap 9 7 - 15 mmol/L Glucose 136 (H) 70 - 120 mg/dL Calcium 8.6 8.4 - 10.2 mg/dL CBC Collection Time: 10/12/23 4:26 AM Result Value Ref Range WBC 5.53 4.00 - 10.80 K/uL RBC 3.92 4.50 - 5.25 M/uL HGB 12.2 (L) 14.0 - 16.8 g/dL HCT 37.3 (L) 40.0 - 48.4 % MCV 95.2 82.0 - 99.5 fL MCH 31.1 27.0 - 34.0 pg MCHC 32.7 32.0 - 36.0 g/dL RDW 13.7 11.5 - 15.5 % PLT 154 140 - 400 K/uL MPV 9.7 6.6 - 11.1 fL nRBCs 0 <=0 /100 WBCs MAGNESIUM Collection Time: 10/12/23 4:26 AM Result Value Ref Range Magnesium 2.1 1.5 - 2.6 mg/dL PHOSPHORUS Collection Time: 10/12/23 4:26 AM Result Value Ref Range Phosphorus 3.1 2.5 - 4.8 mg/dL HEPATIC FUNCTION PANEL Collection Time: 10/12/23 4:26 AM Result Value Ref Range Albumin 3.3 (L) 3.8 - 5.0 g/dL AST 40 10 - 50 U/L Alkaline Phosphatase 130 35 - 130 U/L ALT 99 (H) 10 - 50 U/L Bilirubin, Total 0.9 <=1.2 mg/dL Bilirubin, Direct 0.5 (H) 0.0 - 0.3 mg/dL Protein 5.6 (L) 6.0 - 8.3 g/dL IMAGING: No imaging results in the last 24 hours IMPRESSION: Principal Problem: Acute cholecystitis Active Problems: 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 * 83M w/ multiple medical comorbidities and hx of symptomatic cholelithiasis presenting 10/09 as transfer from [facility] out of c/f Acute Cholecystitis & possible need for PCT. Patient now with negative HIDA scan, no concern for acute cholecystitis. PLAN: - OR today for lap jose m IVF: D51/2 NSS + 20 Kcl @ 75 mL/hr DVT/PE ppx: sequential compression devices (SCD's) and lovenox Analgesia: scheduled tylenol, prn oxy 5 Diet: NPO except meds GI ppx: diet by mouth Nausea: prn zofran Bowel Regimen: none Wing: N/A Antibiotics: none indicated Labs: AM CBC, BMP, mag, phos, LFTs Drains/Lines: PIVs Red/Sutures: none Activity: OOB as tolerated Respiratory: IS Resumed Home Medications: atorvastatin, citalopram, fluticasone, gabapentin, omeprazole, flomax Held Home Medications: plavix Consults Requested: PT/OT Dispo: med surg Patient seen and discussed with Dr. Bairon Colmenares MD General Surgery, PGY1 [facility] 10/12/2023 5:34 AM TigerText: [facility] [place] Resident Banking Management Consulting Manager Associated attestation - Jhony Waddell MD - 10/12/2023 9:49 AM EST I saw and evaluated the patient today. I have reviewed the trainee note and agree. OR today for lap jose m, increased risk for bleeding given ASA/Plavis use but this has been held. * Catalina Colmenares MD - 10/11/2023 4:44 PM EST PROGRESS NOTE - Trauma/Emergency Surgery [address] [address] Name: Angel Nick Location: [facility] [place] B640/B Date: 10/11/2023 Time: 4:44 PM DIAGNOSIS: RUQ Abdominal Pain, possible Acute Cholecystitis PROCEDURE: None this admission DATE OF SURGERY: N/A POST OP DAY: N/A SUBJECTIVE: NAEO, VSS, afebrile. Patient had negative HIDA scan yesterday. Denies pain this morning. Offered patient the option to go home today and follow up with general surgery as an outpatient, but he would rather have his gallbladder out while he's here. OBJECTIVE: Most Recent Vital Signs: BP: 152 mmHg/56 mmHg (10/11/23 1128) Pulse: 59 (10/11/23 1128) Temp: 36.5 C (10/11/231127) Resp: 18 (10/11/231127) SpO2: 98 % (10/11/231127) Vital Signs Last 24 Hours: Systolic BP: Most Recent Systolic BP Av.6 mmHg Min: 138 mmHg Max: 162 mmHg Temperature: Most Recent Temperature Av.6 C Min: 36.11 C Max: 36.89 C Pulse: Pulse Av Min: 59 Max: 70 Respirations: Resp Av.8 Min: 16 Max: 18 SpO2: SpO2 Av.6 % Min: 92 % Max: 98 % In / Out Past 24 Hrs: Intake/Output Summary (Last 24 hours) at 10/11/2023 1644 Last data filed at 10/11/2023 0852 Gross per 24 hour Intake 1845 ml Output 1330 ml Net 515 ml Physical Exam: PHYSICAL EXAM: General: Well-appearing, non-toxic & NAD. Conversational. Resting comfortably in hospital bed. HEENT: Normocephalic, atraumatic. Mucous membranes moist. EOMI. Pulm: Breathing comfortably. Normal respiratory effort with good air movement bilaterally. No respiratory distress. CV: Warm, well-perfused. No extremity swelling or pitting edema Abdomen: Soft. Non-distended. Slight, mild RUQ discomfort with palpation. : Wing present. MSK: No gross abnormalities. , Strength intact - 5/5 to all extremities. , No weakness. Skin: Grossly intact., No rashes, excoriations or discoloration. Neuro: Conscious, alert. Grossly intact without FNDs Psych: Normal mood, appropriate affect. LABS: Recent Results (from the past 12 hour(s)) BASIC METABOLIC PANEL Collection Time: 10/11/23 6:41 AM Result Value Ref Range BUN 26 (H) 6 - 20 mg/dL Creatinine 1.4 (H) 0.6 - 1.2 mg/dL Estimated Glomerular Filtration Rate 52 (L) >=60 mL/min Sodium 139 135 - 146 mmol/L Potassium 4.1 3.5 - 5.1 mmol/L Chloride 104 98 - 107 mmol/L CO2 26 22 - 32 mmol/L Anion Gap 9 7 - 15 mmol/L Glucose 118 70 - 120 mg/dL Calcium 8.5 8.4 - 10.2 mg/dL CBC Collection Time: 10/11/23 6:41 AM Result Value Ref Range WBC 7.08 4.00 - 10.80 K/uL RBC 3.87 4.50 - 5.25 M/uL HGB 12.2 (L) 14.0 - 16.8 g/dL HCT 36.2 (L) 40.0 - 48.4 % MCV 93.5 82.0 - 99.5 fL MCH 31.5 27.0 - 34.0 pg MCHC 33.7 32.0 - 36.0 g/dL RDW 13.9 11.5 - 15.5 % PLT 155 140 - 400 K/uL MPV 10.0 6.6 - 11.1 fL nRBCs 0 <=0 /100 WBCs MAGNESIUM Collection Time: 10/11/23 6:41 AM Result Value Ref Range Magnesium 2.6 1.5 - 2.6 mg/dL PHOSPHORUS Collection Time: 10/11/23 6:41 AM Result Value Ref Range Phosphorus 2.8 2.5 - 4.8 mg/dL HEPATIC FUNCTION PANEL Collection Time: 10/11/23 6:41 AM Result Value Ref Range Albumin 3.3 (L) 3.8 - 5.0 g/dL AST 55 (H) 10 - 50 U/L Alkaline Phosphatase 101 35 - 130 U/L ALT 129 (H) 10 - 50 U/L Bilirubin, Total 1.0 <=1.2 mg/dL Bilirubin, Direct 0.7 (H) 0.0 - 0.3 mg/dL Protein 5.3 (L) 6.0 - 8.3 g/dL GLUCOSE METER, POINT OF CARE Collection Time: 10/11/23 7:02 AM Result Value Ref Range Glucose Meter 110 70 - 120 mg/dL GLUCOSE METER, POINT OF CARE Collection Time: 10/11/23 11:27 AM Result Value Ref Range Glucose Meter 145 (H) 70 - 120 mg/dL BASIC METABOLIC PANEL Collection Time: 10/11/23 3:15 PM Result Value Ref Range BUN 26 (H) 6 - 20 mg/dL Creatinine 1.2 0.6 - 1.2 mg/dL Estimated Glomerular Filtration Rate 61 >=60 mL/min Sodium 136 135 - 146 mmol/L Potassium 3.6 3.5 - 5.1 mmol/L Chloride 102 98 - 107 mmol/L CO2 24 22 - 32 mmol/L Anion Gap 10 7 - 15 mmol/L Glucose 203 (H) 70 - 120 mg/dL Calcium 8.9 8.4 - 10.2 mg/dL IMAGING: No imaging results in the last 24 hours IMPRESSION: Principal Problem: Acute cholecystitis Active Problems: 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 * 83M w/ multiple medical comorbidities and hx of symptomatic cholelithiasis presenting 10/09 as transfer from [facility] out of c/f Acute Cholecystitis & possible need for PCT. Patient now with negative HIDA scan, no concern for acute cholecystitis. PLAN: - Will book and consent patient for lap jose m tomorrow - NPO after 2400, IV fluids IVF: none DVT/PE ppx: sequential compression devices (SCD's) and lovenox Analgesia: scheduled tylenol, prn oxy 5 Diet: regular diet GI ppx: diet by mouth Nausea: prn zofran Bowel Regimen: none Wing: N/A Antibiotics: none indicated Labs: AM CBC, BMP, mag, phos, LFTs Drains/Lines: PIVs Red/Sutures: none Activity: OOB as tolerated Respiratory: IS Resumed Home Medications: atorvastatin, citalopram, fluticasone, gabapentin, omeprazole, flomax Held Home Medications: plavix Consults Requested: PT/OT Dispo: med surg Patient seen and discussed with Dr. Bairon Colmenares MD General Surgery, PGY1 [facility] 10/11/2023 4:45 PM TigerText: [facility] Resident Banking Management Consulting Manager Associated attestation - Jhony Waddell MD - 10/13/2023 12:15 PM EST I saw and evaluated the patient 10/11/23. I have reviewed the trainee note and agree. 83-year-old male that presented to an outside hospital with concerns of acute cholecystitis and wasplaced on antibiotics, his pain did improve and his HIDA scan yesterday was negative however his signs and symptoms are consistent with acute on chronic cholecystitis with cholelithiasis. He has an operative candidate and has elected to proceed with inpatient cholecystectomy consents were obtained with an increased risk of bleeding. * Ludy Gill MD - 10/10/2023 5:48 AM EST PROGRESS NOTE - Trauma/Emergency Surgery [facility] [place] [address] Name: Angel Nick Location: [facility] B640/B Date: 10/10/2023 Time: 11:03 AM DIAGNOSIS: RUQ Abdominal Pain, possible Acute Cholecystitis PROCEDURE: * No surgery found * DATE OF SURGERY: POST OP DAY: * No surgery found * SUBJECTIVE: NAEON. Repeat in-house RUQ U/S w/ +stones/sludge, no PCC fluid or GB wall thickening. AF/HDS, satting 93 - 98% on 2L NC. Only c/o mild RUQ abdominal pain & slight intermittent n/v. No episodes of emesis. No Bms, passing gas still. White count normalized from 13.02 yesterday to 7.24 this AM. OBJECTIVE: Most Recent Vital Signs: BP: 127 mmHg/64 mmHg (10/10/23330) Pulse: 60 (10/10/23330) Temp: 36.39 C (10/10/23330) Resp: 16 (10/10/23330) SpO2: 98 % (10/10/23330) Vital Signs Last 24 Hours: Systolic BP: Most Recent Systolic BP Av.3 mmHg Min: 111 mmHg Max: 127 mmHg Temperature: Most Recent Temperature Av.5 C Min: 36.39 C Max: 36.78 C Pulse: Pulse Av.8 Min: 60 Max: 83 Respirations: Resp Av Min: 16 Max: 16 SpO2: SpO2 Av.5 % Min: 93 % Max: 98 % In / Out Past 24 Hrs: Intake/Output Summary (Last 24 hours) at 10/10/2023 1103 Last data filed at 10/10/2023 0400 Gross per 24 hour Intake 725 ml Output 1400 ml Net -675 ml Physical Exam: PHYSICAL EXAM: General: Well-appearing, non-toxic & NAD. Conversational. Resting comfortably in hospital bed. HEENT: Normocephalic, atraumatic. Mucous membranes moist. EOMI. Pulm: Breathing comfortably. Normal respiratory effort with good air movement bilaterally. No respiratory distress. CV: Warm, well-perfused. No extremity swelling or pitting edema Abdomen: Soft. Non-distended. Slight, mild RUQ discomfort with palpation. : Wing present. MSK: No gross abnormalities. , Strength intact - 5/5 to all extremities. , No weakness. Skin: Grossly intact., No rashes, excoriations or discoloration. Neuro: Conscious, alert. Grossly intact without FNDs Psych: Normal mood, appropriate affect. LABS: Recent Results (from the past 12 hour(s)) GLUCOSE METER, POINT OF CARE Collection Time: 10/09/23 11:59 PM Result Value Ref Range Glucose Meter 128 (H) 70 - 120 mg/dL GLUCOSE METER, POINT OF CARE Collection Time: 10/10/23 6:16 AM Result Value Ref Range Glucose Meter 129 (H) 70 - 120 mg/dL CALCIUM, IONIZED Collection Time: 10/10/23 7:37 AM Result Value Ref Range Calcium, Ionized 1.14 1.13 - 1.32 mmol/L BASIC METABOLIC PANEL Collection Time: 10/10/23 7:37 AM Result Value Ref Range BUN 23 (H) 6 - 20 mg/dL Creatinine 1.3 (H) 0.6 - 1.2 mg/dL Estimated Glomerular Filtration Rate 55 (L) >=60 mL/min Sodium 137 135 - 146 mmol/L Potassium 3.7 3.5 - 5.1 mmol/L Chloride 103 98 - 107 mmol/L CO2 24 22 - 32 mmol/L Anion Gap 10 7 - 15 mmol/L Glucose 134 (H) 70 - 120 mg/dL Calcium 8.2 (L) 8.4 - 10.2 mg/dL CBC Collection Time: 10/10/23 7:37 AM Result Value Ref Range WBC 7.24 4.00 - 10.80 K/uL RBC 3.85 4.50 - 5.25 M/uL HGB 11.9 (L) 14.0 - 16.8 g/dL HCT 35.8 (L) 40.0 - 48.4 % MCV 93.0 82.0 - 99.5 fL MCH 30.9 27.0 - 34.0 pg MCHC 33.2 32.0 - 36.0 g/dL RDW 13.9 11.5 - 15.5 % PLT 140 140 - 400 K/uL MPV 10.4 6.6 - 11.1 fL nRBCs 0 <=0 /100 WBCs LACTATE Collection Time: 10/10/23 7:37 AM Result Value Ref Range Lactate 1.4 0.4 - 2.0 mmol/L MAGNESIUM Collection Time: 10/10/23 7:37 AM Result Value Ref Range Magnesium 2.6 1.5 - 2.6 mg/dL PHOSPHORUS Collection Time: 10/10/23 7:37 AM Result Value Ref Range Phosphorus 2.7 2.5 - 4.8 mg/dL IMAGING: US ABDOMEN LIMITED Result Date: 10/10/2023 IMPRESSION Cholelithiasis and gallbladder sludge. Otherwise, sonographic evidence of acute cholecystitis. IMPRESSION: Principal Problem: Acute cholecystitis Active Problems: BPH without obstruction/lower urinary tract symptoms Type 2 diabetes mellitus with hemoglobin A1c goal of less than 7.5% ([facility]) Primary hypertension Dyslipidemia, goal LDL below 70 History of CVA (cerebrovascular accident) Bradycardia, sinus Current moderate episode of major depressive disorder without prior episode ([facility]) Gastro-esophageal reflux disease without esophagitis Resolved Problems: * No resolved hospital problems. * 83M w/ multiple significant medical comorbidities presenting 10/09 as transfer from [facility] outof c/f Acute Cholecystitis & possible need for PCT, though with repeat U/S not compelling for ACC. PLAN: - Wean O2 as able, OK to sat in low-to-mid 90s. - D/c Wing, f/u void check - Appreciate IR recs, HIDA pending - will re-discuss with IR re: possible PCT pending HIDA results - F/u, trend LFTs - not yet resulted this AM - Diet: NPO Except Meds - ABX: Zosyn - tentative plan to discontinue pending HIDA results - mIVFs: Isolyte @125 - DVT Ppx: SCDs + Lovenox - Pain meds: Tylenol + Oxy 5 prn + INVENTORY [employer]OL [employer]IST Gabapentin - Nausea meds: Zofran - Bowel reg: None - GI Ppx: PPI - Home meds: Reviewed & resumed as appropriate - c/w holding DAPT for now, f/u & consider re-initiation pending HIDA results > Resumed: lipitor, celexa, flomax, fluticasone, omeprazole, gabapentin > Held: aspirin, plavix, metformin, benzapril - Other: SSI & q6h Accuchecks - LTD: PIV, Wing - d/c Maciej today - Consults: Interventional Radiology, PT/OT - Dispo: med/surg - Replete electrolytes prn to goal - D/w Attending Surgeon, Dr. Renan Gill, PGY-2 Associated attestation - Jordan Urrutia MD - 10/11/2023 12:25 PM EST I saw and evaluated the patient 10/10/2023. I have reviewed the trainee note and agree. 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 He initially presented to [facility] with abdominal pain after calling his brother (brother & brother's at bedside), who called an ambulance. Reports that he had peanut butter at his brother's house on Tuesday & developed abdominal discomfort which progressed froma 'chpjli-rx-rg-stomach' sensation to severe pain a/w nausea & repeated bouts of non-bloody, bilious vomiting. He says he has had some milder episodes of post-prandial pain like this but only in the last month & never prior. He reports no changes to bowel or bladder habit during this time, denies fevers/chills. Given these symptoms did not jeanne, he presented to [facility]'s ED where labs demonstrated lactemia to [address] scan was n/f findings concerning for acute cholecystitis, per report. On arrival to [facility] & after resuscitation, lactemia clearing & down to 2.6 on repeat. At presentation, pt was AF/HDS, satting well ORA, in NAD (initially asleep, pleasant/jocular when roused) & reporting his symptoms were much-improved. He still reports some persistent nausea but the abdominal pain has mostly resolved. On exam, he has +Kapoor's sign & atiu-qz-iqhlvjrr TTP in the RUQ, otherwise benign with no TTP in remaining quadrants. He has had no prior abdominal surgeries. His most recent meal was Tuesday evening. Of note, his most recent Echo demonstrated preserved LVEF of 50 - 55% without any gross abnormalities to valvular/chamber structure/function. HOSPITAL PROBLEM LIST: Active Problems: * No active hospital problems. * POA = Present On Admission PAST MEDICAL HISTORY: Past Medical History: Diagnosis Date Acute gastritis [...] disc Diverticulitis of colon 08/22/2004 admitted to [facility] for lower GI bleed. 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 Thyroid nodule 12/30/2018 2 cm right lobe TIA (transient ischemic attack) 12/30/2018 [facility] transient right arm weakness TIA (transient ischemic attack) 03/11/2022 transient sx, TIA vs epilepsy. 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 Vitamin D deficiency 07/02/2009 Vitamin D 16.9 PAST SURGICAL HISTORY: Past Surgical History: Procedure Laterality Date COLONOSCOPY 02/2008 had GI bleed and was admitted to [facility] in [facility] COLONOSCOPY, DIAGNOSTIC (RECTUM) 08/2004 to evaluate GI bleed COLONOSCOPY, DIAGNOSTIC (RECTUM) 10/21/2016 adenomatous polyp, repeat 2 yrs/COLONOSCOPY FLEXIBLE PROXIMAL DIAGNOSTIC performed by Richardson Leone MD at ENDOSCOPY [facility] COLONOSCOPY, DIAGNOSTIC (RECTUM) 07/19/2019 5 mm adenomatous polyp at 30 cm, performed by Richardson Leone MD at ENDOSCOPY [facility] CTA HEAD W CONTRAST 12/30/2018 dimunative left vertebral artery with thrombus, large right mastoid effusion, 2 cm right thyroid nodule ECHO, COMPLETE (2D), TRANS-THORACIC 03/15/2019 normal LV size and function, no wall motion abnormalities, EF 60-64%, stage I diastolic dysfunction,similar to 05/03 EEG 03/13/2022 normal EEG during wakefullness EGD, FLEXIBLE, DIAGNOSTIC 09/28/2016 , duodenal erosions/inpt [facility] EGD, FLEXIBLE, W/BIOPSY N/A 09/28/2016 [...] performed by Da Carter MD at OR [facility] REMOVE CATARACT, INSERT LENS PROSTH Right 06/03/2020 right EXTRACAPSULAR CATARACT REMOVAL WITH INTRAOCULAR LENS performed by Da Carter MD at OR [facility] US AAA SCREEN, RADIOLOGY 04/16/2014 2.9 cm max, no AAA US HEAD AND NECK 01/04/2019 [id number] mm Right lobe midpole mildly complex cystic nodule. FNA suggested VASC ANKLE BRACHIAL INDEX 07/18/2009 Right 1.1, left 1.2, normal VASC DUPLEX CAROTID BILAT 10/30/2007 no stenosis either carotid FAMILY HISTORY: Family History Problem Relation Age of Onset Hypertension Brother No Past Hx Son Cancer Brother (Half) SOCIAL HISTORY: Social History Tobacco Use Smoking status: Former Packs/day: 2.00 Years: 23.00 Additional pack years: 0.00 Total pack years: 46.00 Types: Cigarettes Start date: 1952 Quit date: 10/17/1984 Years since quittin.0 Smokeless tobacco: Former Types: Chew Vaping Use Vaping Use: Never used Substance Use Topics Alcohol use: Yes Alcohol/week: 1.0 standard drink of alcohol Types: 1 12 oz of beer per week Comment: socially/rare Drug use: No CURRENT HOSPITAL MEDICATIONS: Note that completed medications (per the MAR) continue to display for 24 hours. Ordered medicationsto be given in the future also display. Current Facility-Administered Medications Medication Dose Route Frequency Provider cefTRIAXone in dextrose (Rocephin) IVPB 2 g 2 g IV Piggyback Once Graciela Jackson MD ALLERGIES: Patient has no known allergies. ROS: General: (-)fever, (-)chills, (-)unintentional weight loss, (-)night sweats Resp: (-)SOB, (-)difficulty breathing, (-)cough, (-)dyspnea Heme: (-)easy bruising, (-)fatigue CV: (-)chest pain, (-)palpitations, (-)lightheadedness, (-)syncopal episodes, (-)swelling GI: (+)n/v, (-)diarrhea, (+)abdominal pain, (+)bloating, (+)reflux : (-)dysuria, (-)hematuria, (-)pneumaturia, (-)changes in frequency, (- )incontinence, (-)flank pain Skin: (-)Rashes, (-)itching, (-)burning Musculoskeletal: (-)muscle pain, (-)weakness, (-)soreness Neuro: (-)vertigo, (-)syncope, (-)headache, (-)change in consciousness, (-)focal neural deficits PHYSICAL EXAMINATION: Most Recent Vital Signs: BP: 127 mmHg/67 mmHg (10/09/23 1229) Pulse: 83 (10/09/23 1229) Temp: Resp: 16 (10/09/23 1230) SpO2: 93 % (10/09/23 1229) PHYSICAL EXAM: General: Well-appearing, non-toxic. Conversational. Resting comfortably in hospital bed. Initially softly asleep, pleasant when roused. Brother & brother's at bedside. HEENT: Normocephalic, atraumatic. Mucous membranes moist. EOMI. Pulm: Breathing comfortably. Normal respiratory effort with good air movement bilaterally. No respiratory distress. CV: Warm, well-perfused. No extremity swelling or pitting edema Abdomen: Soft. Mildly distended. Dull to percussion in all quadrants. TTP in RUQ with tfmkkeefpd-do-uiyv palpation. +Kapoor's sign. : No wing present. MSK: No gross abnormalities. , Strength intact - 5/5 to all extremities. , No weakness. Skin: Grossly intact., No rashes, excoriations or discoloration. Neuro: Conscious, alert. Grossly intact without FNDs Psych: Normal mood, appropriate affect. LABS: Labs reviewed as indicated below: Recent Results (from the past 24 hour(s)) BASIC METABOLIC PANEL Collection Time: 10/09/23 1:46 PM Result Value Ref Range BUN 18 6 - 20 mg/dL Creatinine 1.2 0.6 - 1.2 mg/dL Estimated Glomerular Filtration Rate 59 (L) >=60 mL/min Sodium 132 (L) 135 - 146 mmol/L Potassium 4.7 3.5 - 5.1 mmol/L Chloride 100 98 - 107 mmol/L CO2 22 22 - 32 mmol/L Anion Gap 10 7 - 15 mmol/L Glucose 197 (H) 70 - 120 mg/dL Calcium 8.2 (L) 8.4 - 10.2 mg/dL CBC Collection Time: 10/09/23 1:46 PM Result Value Ref Range WBC 13.02 (H) 4.00 - 10.80 K/uL RBC 3.92 4.50 - 5.25 M/uL HGB 12.3 (L) 14.0 - 16.8 g/dL HCT 36.0 (L) 40.0 - 48.4 % MCV 91.8 82.0 - 99.5 fL MCH 31.4 27.0 - 34.0 pg MCHC 34.2 32.0 - 36.0 g/dL RDW 13.5 11.5 - 15.5 % PLT 142 140 - 400 K/uL MPV 10.4 6.6 - 11.1 fL nRBCs 0 <=0 /100 WBCs PT INR Collection Time: 10/09/23 1:46 PM Result Value Ref Range Prothrombin Time 14.7 11.6 - 15.2 seconds INR 1.1 0.8 - 1.2 LACTATE Collection Time: 10/09/23 1:46 PM Result Value Ref Range Lactate 2.3 (H) 0.4 - 2.0 mmol/L MAGNESIUM Collection Time: 10/09/23 1:46 PM Result Value Ref Range Magnesium 2.4 1.5 - 2.6 mg/dL PHOSPHORUS Collection Time: 10/09/23 1:46 PM Result Value Ref Range Phosphorus 2.2 (L) 2.5 - 4.8 mg/dL TYPE AND SCREEN Collection Time: 10/09/23 1:46 PM Result Value Ref Range ABO O Rh Positive Red Blood Cell Antibody Screen Negative Specimen Expiration Date 10/12/2023 23:59 HEMOGLOBIN A1C Collection Time: 10/09/23 1:46 PM Result Value Ref Range Hemoglobin A1C 6.7 (H) 4.0 - 5.6 % Estimated Average Glucose 146 (H) <126 mg/dL ABO/RH Collection Time: 10/09/23 1:46 PM Result Value Ref Range ABO O Rh Positive HEPATIC FUNCTION PANEL Collection Time: 10/09/23 1:46 PM Result Value Ref Range Albumin 3.2 (L) 3.8 - 5.0 g/dL AST 279 (H) 10 - 50 U/L Alkaline Phosphatase 99 35 - 130 U/L ALT 228 (H) 10 - 50 U/L Bilirubin, Total 3.1 (H) <=1.2 mg/dL Bilirubin, Direct 2.8 (H) 0.0 - 0.3 mg/dL Protein 5.6 (L) 6.0 - 8.3 g/dL IMAGING: No imaging results in the last 24 hours Imaging from OSH reviewed & disc taken to [facility] for upload to PACS IMPRESSION and PLAN: 83M w/ multiple significant medical comorbidities presenting 10/09 as transfer from [facility] outof c/f Acute Cholecystitis & possible need for PCT. - OSH imaging taking to Radiology for uploading to PACS - Consult IR for PCT - IR not convinced pt's imaging is compelling for acute cholecystitis after reviewing OSH imaging, recommend repeat imaging. - Repeat RUQ U/S, consider HIDA - Diet: NPO Except Meds - ABX: Zosyn - mIVFs: Isolyte @125 - DVT Ppx: SCDs + Lovenox - Pain meds: Tylenol + Oxy 5 prn + [employer]IST Gabapentin - Nausea meds: Zofran - Bowel reg: None - GI Ppx: PPI - Home meds: Reviewed & resumed as appropriate: > Resumed: lipitor, celexa, flomax, fluticasone, omeprazole, gabapentin > Held: aspirin, plavix, metformin, benzapril - Other: SSI & q6h Accuchecks - LTD: PIV - Consults: Interventional Radiology, PT/OT - Dispo: med/surg - D/w Attending Surgeon, Dr. Renan Gill, PGY-2 REFERRING PHYSICIAN: 1. Terrence White MD PRIMARY CARE PHYSICIAN: David Palm MD Associated attestation - Jordan Urrutia MD - 10/10/2023 10:12 AM EST I saw and evaluated the patient 10/09/2023. I have reviewed the trainee note and agree. documented in this encounter Consult Notes * Lashanda Hooper, PT - 10/13/2023 10:41 AM ESTAssociated Order(s): ADULT PHYSICAL THERAPY CONSULT IP GENERAL EVALUATION - Physical Therapy [address] [id number] Name: Angel Nick Location: [facility] B640/B Date: 10/13/2023 Time: 10:41 AM Angel Nick is a/an 83 year old male. Patient Status: Inpatient Insurance: Payor: [facility] Zong Plan: [facility] [employer] PREFERRED ENHANCED MP-DD Product Type: *No Product type* Patient Seen: at bedside, nursing cleared patient for therapy Patient Identified By: Name, ID Band and Date Diagnosis: acute cholecystitis now s/p cholecystectomy (10/13/23 104) Status of treatment: Reassessment completed (10/13/23 1041) Orders: PT evaluation and treatment;OOB (10/13/23 1041) Weight Bearing Status: Weight bearing as tolerated (10/13/23 1041) Precautions: Alarms;Falls;Safety (10/13/23 104) Total Treatment Time--free text: 15 (10/13/23 104) Past Medical History: Past Medical History: Diagnosis Date Acute gastritis [...] disc Diverticulitis of colon 08/22/2004 admitted to [facility] for lower GI bleed. 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 Thyroid nodule 12/30/2018 2 cm right lobe TIA (transient ischemic attack) 12/30/2018 [facility] transient right arm weakness TIA (transient ischemic attack) 03/11/2022 transient sx, TIA vs epilepsy. 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 Vitamin D deficiency 07/02/2009 Vitamin D 16.9 Past Surgical History: Past Surgical History: Procedure Laterality Date COLONOSCOPY 02/2008 had GI bleed and was admitted to [facility] in [facility] COLONOSCOPY, DIAGNOSTIC (RECTUM) 08/2004 to evaluate GI bleed COLONOSCOPY, DIAGNOSTIC (RECTUM) 10/21/2016 adenomatous polyp, repeat 2 yrs/COLONOSCOPY FLEXIBLE PROXIMAL DIAGNOSTIC performed by Richardson Leone MD at ENDOSCOPY [facility] COLONOSCOPY, DIAGNOSTIC (RECTUM) 07/19/2019 5 mm adenomatous polyp at 30 cm, performed by Richardson Leone MD at ENDOSCOPY [facility] CTA HEAD W CONTRAST 12/30/2018 dimunative left vertebral artery with thrombus, large right mastoid effusion, 2 cm right thyroid nodule ECHO, COMPLETE (2D), TRANS-THORACIC 03/15/2019 normal LV size and function, no wall motion abnormalities, EF 60-64%, stage I diastolic dysfunction,similar to 05/03 EEG 03/13/2022 normal EEG during wakefullness EGD, FLEXIBLE, DIAGNOSTIC 09/28/2016 , duodenal erosions/inpt [facility] EGD, FLEXIBLE, W/BIOPSY N/A 09/28/2016 [...] severe chronic white matter changes, volume loss LAPAROSCOPY; CHOLECYSTECTOMY N/A 10/12/2023 LAPAROSCOPIC CHOLECYSTECTOMY performed by Jhony Waddell MD at OR [facility] MYOCARDIAL PERFUSION SPECT MULTIPLE STUDIES 04/21/2018 negative for inducible ischemia, normal LV size and function, EF >65% REMOVE CATARACT, INSERT LENS PROSTH Left 05/27/2020 left EXTRACAPSULAR CATARACT REMOVAL WITH INTRAOCULAR LENS performed by Da Carter MD at OR [facility] REMOVE CATARACT, INSERT LENS PROSTH Right 06/03/2020 right EXTRACAPSULAR CATARACT REMOVAL WITH INTRAOCULAR LENS performed by Da Carter MD at OR [facility] US AAA SCREEN, RADIOLOGY 04/16/2014 2.9 cm max, no AAA US HEAD AND NECK 01/04/2019 [id number] mm Right lobe midpole mildly complex cystic nodule. FNA suggested VASC ANKLE BRACHIAL INDEX 07/18/2009 Right 1.1, left 1.2, normal VASC DUPLEX CAROTID BILAT 10/30/2007 no stenosis either carotid Subjective: Patient supine in bed upon therapist entering room. Patient agreeable to PT evaluation. Social History/Disposition Lives with: Alone (10/11/23 115) Assistance available: Yes (brother) (10/11/23 115) Dwelling type: Multi-story home (10/11/23 1158) Entry steps: 2 (10/11/23 1158) Inside steps: 10 - 15 (10/11/23 1158) Bedroom location: 2nd floor (10/11/23 1158) Bath location: 1st floor full bath;2nd floor full bath (10/11/23 1158) Prior Level of Function Reported by: Patient (10/11/23 1158) Ambulation: Ambulatory without device (10/11/23 115) Devices at home: Rolling walker;Stair glide/stair lift;Straight cane (10/11/23 1158) Observations Consciousness: Alert (10/13/231040) Orientation: Person;Place;Situation (10/13/23 104) Psychosocial: Patient can communicate basic needs (10/13/231040) Other Findings: Yes (10/13/231040) Findings: Light touch sensation (10/13/231040) Light Touch Sensation Results: Intact;LLE;RLE (10/13/231040) Sitting Posture: Rounded shoulders;Forward head (10/13/231040) Standing Posture: Rounded shoulders;Forward head (10/13/231040) Pain: Patient has complaints of pain. Pain located abdomen (surgical site). No level stated. Nurse aware. Range of Motion Range of Motion: WFL (10/13/231040) Strength Assessment Strength Assessment: (bilateral LE 4/5) (10/13/231040) P.T. Bed Mobility Supine-Sit: Supervision (10/13/231040) Sit-Supine: Supervision (10/11/231157) Transfers Sit-Stand: Contact Guard (10/13/231040) Stand-Sit: Contact Guard (10/13/231040) Ambulation: Distance ambulated (feet): 200 Assistive Device: Rolling walker Assist: Contact Guard and cues for rolling walker management Stairclimbing not assessed due to fatigue with ambulation Balance Sit (Static): Fair (10/13/231040) Sit (Dynamic): Fair (10/13/231040) Stand (Static): Fair (-) (10/13/231040) Stand (Dynamic): Fair (-) (10/13/231040) Patient and or Family Goal(s): to get well and to return home Patient Education Review of Precautions: Safety;Fall (10/13/231040) Safety Awareness: (requires cues and assistance for safe mobility) (10/13/231040) Preferred learning method: Combination (10/13/231040) Barriers to learning: Medical Status (10/13/231040) Method of Education: Verbalized to patient (10/13/231040) Topic of Education: Safety with mobility, Goals/plan of care, Use of assistive device, Fall prevention, and role of PT Method of Education: Verbal discussion and explanation provided to patient: verbalized understanding and or agreement of this information Treatment Provided: Re-evaluation: 15 minutes Alarm Status Patient positioned in: Chair (10/13/231040) With: Pressure pad alarm intact and functioning and call soto in reach (10/13/231040) Following session patient seated OOB in chair with chair alarm activated and cord plugged into callbell system. Treatment Status: Treatment at bedside (10/13/231040) Goals: Demonstrate Bed Mobility with : Supine to Sit: Modified Independent Sit to supine: Modified Independent Demonstrate Transfers with: Sit to Stand: Modified Independent Stand to Sit: Modified Independent Demonstrate Ambulation: Assistive Device: least restrictive device Distance in feet: 400 Level of Assistance on level surface: Modified Independent Demonstrate Stairclimbing: Number of steps: 2-12, : Other rail and Level of Assistance: Modified Independent Increase Strength of: bilateral LE by 1/2 MMT grade above eval Increase Balance: to Fair + throughout Time Frame: 8 visits Assessment: Patient is an 83 y/o male with dx acute cholecystitis. Patient is seen for PT reassessment s/p cholecystectomy. Patient currently requires contact guard assistance with sit to stand transfers and ambulation with use of rolling walker. Patient requires cues for safe rolling walker management. Patient's mobility is limited by decreased LE strength, decreased balance, recent surgery withc/o pain, and decreased activity tolerance. Patient would benefit from continued PT to maximize functional independence. Please consider post-acute care services which may include home health, alf, outpatient therapy or inpatient rehabilitation. The level of care will be determined in co llaboration with patient, family/caregiver and care team members. Deficits requiring P.T. treatment needs: Safety;Mobility;Balance;Weakness;Endurance;Lower extremitystrength (10/13/231040) Treatment Plan: Bed mobility training, Transfer training, Gait training, Elevation training, Strengthening exercises, Balance activities, and Educate on safety with mobility Anticipated Frequency (on eval): 1 to 3 times per week (10/13/23 1041) AM PAC Score with Stairs: 17 A portion of this AM-PAC assessment not scored based on functional assessment; rather clinical decision making utilized based on current findings and/or prior level of function. Please refer to future AM-PAC calculations of functional ability as they become available. * Lori Beavers OTR/L - 10/13/2023 10:32 AM ESTAssociated Order(s): ADULT OCCUPATIONAL THERAPY CONSULT IP; ADULT OCCUPATIONAL THERAPY CONSULT IP GENERAL EVALUATION - Occupational Therapy [address] [address] Name: Angel Nick Location: [facility] B640/B Date: 10/13/2023 Time: 10:13 AM Angel Nick is a 83 year old male. Patient Status: Inpatient Insurance: Payor: [facility] Zong Plan: [facility] PREFERRED ENHANCED MP-DD Product Type: *No Product type* Patient Seen: at bedside, nursing cleared patient for therapy Patient Identified By: Name, ID Band and Date Diagnosis: acute cholecystitis (10/13/23 1013) Status of treatment: Evaluation completed (10/13/23 1013) Orders: OT evaluation and treatment;OT OOB (10/13/23 101) Weight Bearing Status: Weight bearing as tolerated (10/13/23 1013) Precautions: Alarms;Falls;Safety;Oxygen (CVM) (10/13/23 1013) Total Treatment Time: 18 (10/13/23 1013) Per Epic: "PRESENTING PROBLEM: Abdominal pain, c/f Acute Cholecystitis HISTORY OF PRESENT ILLNESS: 83M w/h/o HTN, HLD, 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 He initially presented to [facility] with abdominal pain after calling his brother (brother & brother's at bedside), who called an ambulance. Reports that he had peanut butter at his brother's house on Tuesday & developed abdominal discomfort which progressed froma 'nkvhfw-cz-dd-stomach' sensation to severe pain a/w nausea & repeated bouts of non-bloody, bilious vomiting. He says he has had some milder episodes of post-prandial pain like this but only in the last month & never prior. He reports no changes to bowel or bladder habit during this time, denies fevers/chills. Given these symptoms did not jeanne, he presented to [facility]'s ED where labs demonstrated lactemia to [address] scan was n/f findings concerning for acute cholecystitis, per report. On arrival to [facility] & after resuscitation, lactemia clearing & down to 2.6 on repeat. At presentation, pt was AF/HDS, satting well ORA, in NAD (initially asleep, pleasant/jocular when roused) & reporting his symptoms were much-improved. He still reports some persistent nausea but the abdominal pain has mostly resolved. On exam, he has +Kapoor's sign & [id number] TTP in the RUQ, otherwise benign with no TTP in remaining quadrants. He has had no prior abdominal surgeries. His most recent meal was Tuesday evening. Of note, his most recent Echo demonstrated preserved LVEF of 50 - 55% without any gross abnormalities to valvular/chamber structure/function. Date of Operation: 10/12/2023 Pre-op Diagnosis: Acute on Chronic Cholecystitis Post-op Diagnosis: Same Operation: Laparoscopic Cholecystectomy; ROMAN block performed by the surgeon Surgeon: Jhony Waddell MD" Past Medical History: Past Medical History: Diagnosis Date Acute gastritis [...] disc Diverticulitis of colon 08/22/2004 admitted to [facility] for lower GI bleed. 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 Thyroid nodule 12/30/2018 2 cm right lobe TIA (transient ischemic attack) 12/30/2018 [facility] transient right arm weakness TIA (transient ischemic attack) 03/11/2022 transient sx, TIA vs epilepsy. 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 Vitamin D deficiency 07/02/2009 Vitamin D 16.9 Past Surgical History: Past Surgical History: Procedure Laterality Date COLONOSCOPY 02/2008 had GI bleed and was admitted to [facility] in [facility] COLONOSCOPY, DIAGNOSTIC (RECTUM) 08/2004 to evaluate GI bleed COLONOSCOPY, DIAGNOSTIC (RECTUM) 10/21/2016 adenomatous polyp, repeat 2 yrs/COLONOSCOPY FLEXIBLE PROXIMAL DIAGNOSTIC performed by Richardson Leone MD at ENDOSCOPY [facility] COLONOSCOPY, DIAGNOSTIC (RECTUM) 07/19/2019 5 mm adenomatous polyp at 30 cm, performed by Richardson Leone MD at ENDOSCOPY [facility] CTA HEAD W CONTRAST 12/30/2018 dimunative left vertebral artery with thrombus, large right mastoid effusion, 2 cm right thyroid nodule ECHO, COMPLETE (2D), TRANS-THORACIC 03/15/2019 normal LV size and function, no wall motion abnormalities, EF 60-64%, stage I diastolic dysfunction,similar to 05/03 EEG 03/13/2022 normal EEG during wakefullness EGD, FLEXIBLE, DIAGNOSTIC 09/28/2016 , duodenal erosions/inpt [facility] EGD, FLEXIBLE, W/BIOPSY N/A 09/28/2016 [...] severe chronic white matter changes, volume loss LAPAROSCOPY; CHOLECYSTECTOMY N/A 10/12/2023 LAPAROSCOPIC CHOLECYSTECTOMY performed by Jhony Waddell MD at OR [facility] MYOCARDIAL PERFUSION SPECT MULTIPLE STUDIES 04/21/2018 negative for inducible ischemia, normal LV size and function, EF >65% REMOVE CATARACT, INSERT LENS PROSTH Left 05/27/2020 left EXTRACAPSULAR CATARACT REMOVAL WITH INTRAOCULAR LENS performed by Da Carter MD at OR [facility] REMOVE CATARACT, INSERT LENS PROSTH Right 06/03/2020 right EXTRACAPSULAR CATARACT REMOVAL WITH INTRAOCULAR LENS performed by Da Carter MD at OR [facility] US AAA SCREEN, RADIOLOGY 04/16/2014 2.9 cm max, no AAA US HEAD AND NECK 01/04/2019 [id number] mm Right lobe midpole mildly complex cystic nodule. FNA suggested VASC ANKLE BRACHIAL INDEX 07/18/2009 Right 1.1, left 1.2, normal VASC DUPLEX CAROTID BILAT 10/30/2007 no stenosis either carotid Social History/Disposition Lives with: Alone (10/13/23 1013) Assistance available: Yes (brother) (10/13/23 1013) Dwelling type: Multi-story home (10/13/231012) Entry steps: 2 (10/13/231012) Inside steps: 10 - 15 (10/13/231012) Bedroom location: 2nd floor (10/13/231012) Bath location: 1st floor full bath;2nd floor full bath (10/13/231012) Prior Level of Function Reported by: Patient (10/13/231012) Ambulation: Ambulatory without device (10/13/231012) Grooming: Independent (10/13/231012) Bathing: Independent (10/13/231012) Dressing: Independent (10/13/231012) Feeding: Independent (10/13/231012) Toileting: Independent (10/13/231012) Meal Prep: Independent (10/13/231012) Homemaking: Independent (10/13/231012) Durable Medical Equipment at home: Rolling walker;Stair glide/stair lift;Straight cane (10/13/231012) Subjective: Pt was noted to be supine in bed upon arrival and agreeable to therapy services. Pain: Patient has complaints of pain. Pain located in R hip and back and rated 2/10. Nursing aware. Observations Consciousness: Alert (10/13/231012) Orientation: Person;Time;Situation (needed cues for place) (10/13/231012) Cognitive Limitations: Processing;Problem solving;Impulsivity (10/13/231012) Psychosocial: Patient can communicate basic needs;Patient can converse in a social setting (10/13/231012) Sitting posture: Forward head;Rounded shoulders (10/13/231012) Standing posture: Forward head;Rounded shoulders (10/13/231012) Safety awareness: The Patient verbalizes insight of current deficits.;The Patient demonstrates carryover of insight during functional tasks.;The Patient can communicate basic needs.;Needs cueing supervision. (10/13/231012) Other Findings Endurance: Fair (10/13/231012) Light touch sensation: LUE;RUE;Impaired (occasional numbness and tingling in BUE hands) (10/13/231012) Coordination: LUE;RUE;Intact (10/13/231012) Current Functional Status: Bilateral Upper Extremity Range of Motion: WFL (10/13/231012) Strength Assessment: (4/5 throughout BUEs) (10/13/231012) Dressing Upper Body: Supervision (Please comment) (gown) (10/13/231012) Lower Body: Maximal Assistance (socks) (10/13/231012) Functional Ambulation Assistive Device: Rolling walker (10/13/231012) Distance in feet:: 200 (10/13/231012) Level of Assistance: Contact Guard (10/13/231012) Bed Mobility Supine-Sit: Supervision (Please comment) (10/13/231012) OT Transfers Sit-Stand: Contact Guard (from bed) (10/13/231012) Stand-Sit: Contact Guard (to chair) (10/13/231012) Balance Sit (Static): Fair (10/13/231012) Sit (Dynamic): Fair (10/13/231012) Stand (Static): Fair (-) (10/13/231012) Stand (Dynamic): Fair (-) (10/13/231012) Alarm Status Patient positioned in: Chair (10/13/231012) With: Pressure pad alarm intact and functioning and call soto in reach (10/13/231012) Following session patient seated OOB in chair with chair alarm activated and cord plugged into callbell system. Patient and Family Goals: to get well Patient Education Education Topic: Role of OT;Plan of care goals (10/13/231012) Review of Precautions: Safety;Fall (10/13/231012) Method of Education: Verbalized to patient (10/13/231012) Education Provided to: Patient (10/13/231012) Response to Education: Receptive and agreeable to education;Needs further education (10/13/231012) Barriers to learning: Medical status (10/13/231012) Preferred learning method: Combination (10/13/231012) Treatment Provided: Evaluation Moderate Complexity 18 minutes - 10433: Patient was cooperative and pleasant during treatment session. Moderate complexity evaluation performed and 3-5 activity limitations were identified, including ADL deficit, functional mobility deficit, bed mobility deficit, decreased strength, decreased endurance, and impaired balance. Minimal or moderate modification of the functional task was necessary to complete the evaluation. Deficits Requiring O.T. Treatment: Deficits requiring O.T. treatment needs: ADL/self-care;Balance;Endurance;Functional mobility;Safety;Upper extremity strength;Weakness (10/13/23 1013) Goals: Demonstrates Self-care at: Feeding: Modified Independent Grooming: Modified Independent Toileting: Modified Independent UE dressing: Modified Independent UE bathing: Modified Independent LE dressing: Modified Independent LE bathing: Modified Independent Demonstrates Bed Mobility at: Supine-Sit: Modified Independent Sit-Supine: Modified Independent Demonstrates transfers at: Sit-Stand: Modified Independent Stand-Sit: Modified Independent Bed-Chair: Modified Independent Toilet: Modified Independent Shower/Tub: Modified Independent Demonstrates functional ambulation at: Assistive device: appropriate device as needed Level of Assistance: Modified Independent Balance: Static Sitting: Fair+ Dynamic Sitting: Fair+ Static Standing: Fair+ Dynamic Standing: Fair+ Strength/ROM: Increase BUE strength 1/2 muscle grade Endurance: Increase endurance to 30/30 minutes in order to improve participation in ADL tasks and general mobility Safety awareness/Cognition: Increase safety awareness during functional mobility Increase orientation to 4/4 100% of the time with no verbal cues Goal Time Frame: 8 visits Assessment: Pt was admitted to [facility] for the above dx. Pt was pleasant and cooperative during his OT evaluation this date. Upon arrival, pt was supine in bed and agreeable to therapy services. Prior toadmission, pt reports that he lives alone in a 2 story home with 2 steps to enter. Pt states that he was previously independent with ADL tasks/IADL tasks and for mobility without a device. Upon exam,pt performed bed mobility with supervision. Once seated edge of bed, pt completed UE dressing task with supervision and LE dressing task with max A due to increased pain in abdomen when reaching forward towards BLEs. All transfers and ambulation were completed with contact guard. Pt ambulated 200 [address] in hallway with use of a rolling walker. Ambulation currently limited due to decreased endurance. Following session, pt was noted to be seated in chair with call soto in reach. All needs met. Currently, pt presents with difficulty in ADL completion and general mobility secondary to decreased strength, balance, endurance, safety awareness, and overall current medical status. Pt would benefit fromacute OT services to increase his independence with ADL tasks and general mobility. In regard to discharge, please consider post-acute care services which may include home health, alf, outpatient therapy or inpatient rehabilitation. The level of care will be determined in collaboration with patient, family/caregiver and care team members. Treatment Plan: Energy Conservation, Safety, Bed mobility training, Functional Ambulation, Transfertraining, Upper extremity strengthening, Balance activities, ADL training, Endurance, and Educate on safety with ADLs and mobility. Anticipated Frequency (on eval): 1 to 3 times per week (10/13/23 101) AM-PAC Help From Another Person Eating Meals: A little (10/13/23 101) Help From Another Person Taking Care of Personal Grooming: A little (10/13/23 101) Help From Another Person To Put On/Take Off Upper Body Clothing: A little (10/13/23 101) Help From Another Person To Put On/Take Off Lower Body Clothing: A lot (10/13/23 101) Help From Another Person Toileting: A little (10/13/23 101) Help From Another Person Bathing: A lot (10/13/23 101) OT AM-PAC Score: 16 (10/13/23 1013) OT AM-PAC t-Scale Score: 35.96 (10/13/23 101) HLM (Highest Level of Mobility) Goal: Level 5 standing (1 or more minutes) (10/13/23 1041) A portion of this AM-PAC assessment not scored based on functional assessment; rather clinical decision making utilized based on current findings and/or prior level of function. Please refer to future AM-PAC calculations of functional ability as they become available. * Lashanda Hooper, PT - 10/11/2023 11:58 AM ESTAssociated Order(s): ADULT PHYSICAL THERAPY CONSULT IP GENERAL EVALUATION - Physical Therapy [address] [address] Name: Angel Nick Location: [facility] B640/B Date: 10/11/2023 Time: 12:08 PM Angel Nick is a/an 83 year old male. Patient Status: Inpatient Insurance: Payor: [facility]: [facility] PREFERRED ENHANCED MP-DD Product Type: *No Product type* Patient Seen: at bedside, nursing cleared patient for therapy Patient Identified By: Name, ID Band and Date Diagnosis: acute cholecystitis (10/11/23 1158) Status of treatment: Evaluation completed (10/11/23 115) Orders: PT evaluation and treatment (10/11/23 115) Weight Bearing Status: Weight bearing as tolerated (10/11/23 115) Precautions: Alarms;Falls;Safety (10/11/23 115) Total Treatment Time--free text: 15 (10/11/23 115) Past Medical History: Past Medical History: Diagnosis Date Acute gastritis [...] disc Diverticulitis of colon 08/22/2004 admitted to [facility] for lower GI bleed. 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 Thyroid nodule 12/30/2018 2 cm right lobe TIA (transient ischemic attack) 12/30/2018 [facility] transient right arm weakness TIA (transient ischemic attack) 03/11/2022 transient sx, TIA vs epilepsy. 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 Vitamin D deficiency 07/02/2009 Vitamin D 16.9 Past Surgical History: Past Surgical History: Procedure Laterality Date COLONOSCOPY 02/2008 had GI bleed and was admitted to [facility] in [facility] COLONOSCOPY, DIAGNOSTIC (RECTUM) 08/2004 to evaluate GI bleed COLONOSCOPY, DIAGNOSTIC (RECTUM) 10/21/2016 adenomatous polyp, repeat 2 yrs/COLONOSCOPY FLEXIBLE PROXIMAL DIAGNOSTIC performed by Richardson Leone MD at ENDOSCOPY [facility] COLONOSCOPY, DIAGNOSTIC (RECTUM) 07/19/2019 5 mm adenomatous polyp at 30 cm, performed by Richardson Leone MD at ENDOSCOPY [facility] CTA HEAD W CONTRAST 12/30/2018 dimunative left vertebral artery with thrombus, large right mastoid effusion, 2 cm right thyroid nodule ECHO, COMPLETE (2D), TRANS-THORACIC 03/15/2019 normal LV size and function, no wall motion abnormalities, EF 60-64%, stage I diastolic dysfunction,similar to 05/03 EEG 03/13/2022 normal EEG during wakefullness EGD, FLEXIBLE, DIAGNOSTIC 09/28/2016 , duodenal erosions/inpt [facility] EGD, FLEXIBLE, W/BIOPSY N/A 09/28/2016 [...] performed by Da Carter MD at OR [facility] REMOVE CATARACT, INSERT LENS PROSTH Right 06/03/2020 right EXTRACAPSULAR CATARACT REMOVAL WITH INTRAOCULAR LENS performed by aD Carter MD at OR [facility] US AAA SCREEN, RADIOLOGY 04/16/2014 2.9 cm max, no AAA US HEAD AND NECK 01/04/2019 [id number] mm Right lobe midpole mildly complex cystic nodule. FNA suggested VASC ANKLE BRACHIAL INDEX 07/18/2009 Right 1.1, left 1.2, normal VASC DUPLEX CAROTID BILAT 10/30/2007 no stenosis either carotid Subjective: Patient supine in bed upon therapist entering room. Bed alarm on. Patient agreeable to PT evaluation. Social History/Disposition Lives with: Alone (10/11/23 115) Assistance available: Yes (brother) (10/11/23 1158) Dwelling type: Multi-story home (10/11/23 1158) Entry steps: 2 (10/11/23 1158) Inside steps: 10 - 15 (10/11/23 1158) Bedroom location: 2nd floor (10/11/23 1158) Bath location: 1st floor full bath;2nd floor full bath (10/11/23 115) Prior Level of Function Reported by: Patient (10/11/23 1158) Ambulation: Ambulatory without device (10/11/23 1158) Devices at home: Rolling walker;Stair glide/stair lift;Straight cane (10/11/23 1158) Observations Consciousness: Alert (10/11/23 1158) Orientation: Person;Place;Situation (Time not assessed) (10/11/23 1158) Psychosocial: Patient can communicate basic needs (10/11/23 1158) Other Findings: Yes (10/11/23 1158) Findings: Light touch sensation (10/11/23 1158) Light Touch Sensation Results: Intact;LLE;RLE (10/11/23 1158) Sitting Posture: Rounded shoulders;Forward head (10/11/23 1158) Standing Posture: Rounded shoulders;Forward head (10/11/231157) Pain: No complaints of pain Range of Motion Range of Motion: WFL (bilateral LE) (10/11/231157) Strength Assessment Strength Assessment: (bilateral LE 4/5 throughout) (10/11/231157) P.T. Bed Mobility Supine-Sit: Supervision (10/11/231157) Sit-Supine: Supervision (10/11/231157) Transfers Sit-Stand: Supervision (10/11/231157) Stand-Sit: Supervision (10/11/231157) Ambulation: Distance ambulated (feet): 200 Assistive Device: Rolling walker Assist: Supervision Stairclimbing: Patient declining at this time.Fatigue with ambulation Balance Sit (Static): Fair (10/11/231157) Sit (Dynamic): Fair (10/11/231157) Stand (Static): Fair (10/11/231157) Stand (Dynamic): Fair (10/11/231157) Patient and or Family Goal(s): to get well Patient Education Review of Precautions: Safety;Fall (role of PT) (10/11/231157) Safety Awareness: Patient verbalizes insight of current deficits (10/11/231157) Preferred learning method: Combination (10/11/231157) Barriers to learning: Medical Status (10/11/231157) Method of Education: Verbalized to patient (10/11/231157) Topic of Education: Safety with mobility, Goals/plan of care, Use of assistive device, Fall prevention, and role of PT Method of Education: Verbal discussion and explanation provided to patient: verbalized understanding and or agreement of this information Treatment Provided: Evaluation Moderate Complexity 15 minutes - 45003: Patient was alert during treatment session. Moderate complexity evaluation performed and 1-2 personal factors or comorbidities were identified that will impact plan of care, including multiple steps at home, lives alone at home,and history of CVA. Patient presents with limitations in strength, bed mobility, transfers, gait, el evations, balance, endurance, and safety, which will impact plan of care. These limitations will beaddressed by the goals set for this patient. Alarm Status Patient positioned in: Bed (10/11/231157) With: Bed alarm intact and functioning and call soto in reach (10/11/231157) Treatment Status: Treatment at bedside (10/11/231157) Goals: Demonstrate Bed Mobility with : Supine to Sit: Modified Independent Sit to supine: Modified Independent Demonstrate Transfers with: Sit to Stand: Modified Independent Stand to Sit: Modified Independent Demonstrate Ambulation: Assistive Device: least restrictive device Distance in feet: 400' Level of Assistance on level surface: Modified Independent Demonstrate Stairclimbing: Number of steps: 12, : Other rail and Level of Assistance: Modified Independent Increase Strength of: bilateral LE by 1/2 MMT grade above eval Increase Balance: to Fair + throughout Time Frame: 6 visits Assessment: Patient is an 83 y/o male with dx acute cholecystitis. Prior to admission, patient lives alone in a multi story home with 2 steps to enter and was independent with mobility without an assistive device. Patient reports he has assistance from his brother. Patient currently requires supervision with sit to stand transfers and ambulation with use of rolling walker. Patient's mobility is limited by decreased LE strength, decreased balance, overall medical status, and decreased activity tolerance. Patient would benefit from continued PT to maximize functional independence. Please consider home with post-acute care services which may include home health or outpatient therapy. The levelof care will be determined in collaboration with the patient, family/caregiver and care team members. Deficits requiring P.T. treatment needs: Safety;Mobility;Balance;Weakness;Endurance;Lower extremitystrength (10/11/231157) Treatment Plan: Bed mobility training, Transfer training, Gait training, Elevation training, Strengthening exercises, and Balance activities Anticipated Frequency (on eval): 1 to 3 times per week (10/11/231157) AM PAC Score with Stairs: 19 A portion of this AM-PAC assessment not scored based on functional assessment; rather clinical decision making utilized based on current findings and/or prior level of function. Please refer to future AM-PAC calculations of functional ability as they become available. documented in this encounter Nursing Notes * Daniella Rose LPN - 10/14/2023 1:24 PM EST NURSING AMBULATION OXYGEN TEST [address] [address] Name: Angel Nick Location: [facility] B640/B Date: 10/14/2023 Time: 1:24 PM Date of test: 10/14/2023 (needs to be completed within 48 hours of discharge) O2 saturation on room air at rest: 94 % O2 saturation at rest is less than or equal to 88 %: no O2 saturation on room air during ambulation: 85 % O2 saturation during ambulation is less than or equal to 88 %: yes; O2 was applied at 2 liters nasal cannula to improve saturations to 91 % while ambulating * Janiya Mcleod RN - 10/12/2023 7:45 PM EST (Late entry for 10/12 1945) Patient bed alarm was going off. Upon entering the room nursing staff found the patient laying on the floor next to the bed. Patient stated he was attempting to get out of bed to to go to the bathroom when he began to urinate on the floor and slipped in the puddle of urine. Patient was helped back into bed. He now has new skin tear on his left forearm. Patient also states that he hit his head and it hurts, no noticeable injuries to the head area were noted. Tom Strong was made aware via tigertext and came to the bedside to evaluate the patient. Lexus, patient's daughter in law was also made aware of the patient's fall via phone call by nursing. Jhon Osei RN - 10/12/2023 10:58 AM EST PERIOP TO IP HANDOFF COMMUNICATION NOTE [facility] [address] [facility] [id number] Name: Angel Nick AGE: [age] year old Location: [place] [facility] Date: 10/12/2023 Attention to: bp6 staff Report from: Jhon Carson RN Patient arriving via: Bed Time of call: 10:59 AM Phone Ext: [phone] Reason for SBAR (Situation, Background, Assessment, Recommendation) handoff: Transfer Sending to: bp6 Emotional/Personal Events & Special Needs: na Prescriptions in chart: No Code Status: Full Code Discussion of adv directives occurred with - adult: Patient Safety Concerns: no safety concerns identified Allergies: Patient has no known allergies. PMH: Past Medical History: Diagnosis Date Acute gastritis [...] disc Diverticulitis of colon 08/22/2004 admitted to [facility] for lower GI bleed. 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 Thyroid nodule 12/30/2018 2 cm right lobe TIA (transient ischemic attack) 12/30/2018 [facility] transient right arm weakness TIA (transient ischemic attack) 03/11/2022 transient sx, TIA vs epilepsy. 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 Vitamin D deficiency 07/02/2009 Vitamin D 16.9 PSH: Past Surgical History: Procedure Laterality Date COLONOSCOPY 02/2008 had GI bleed and was admitted to [facility] in [facility] COLONOSCOPY, DIAGNOSTIC (RECTUM) 08/2004 to evaluate GI bleed COLONOSCOPY, DIAGNOSTIC (RECTUM) 10/21/2016 adenomatous polyp, repeat 2 yrs/COLONOSCOPY FLEXIBLE PROXIMAL DIAGNOSTIC performed by Richardson Leone MD at ENDOSCOPY [facility] COLONOSCOPY, DIAGNOSTIC (RECTUM) 07/19/2019 5 mm adenomatous polyp at 30 cm, performed by Richardson Leone MD at ENDOSCOPY [facility] CTA HEAD W CONTRAST 12/30/2018 dimunative left vertebral artery with thrombus, large right mastoid effusion, 2 cm right thyroid nodule ECHO, COMPLETE (2D), TRANS-THORACIC 03/15/2019 normal LV size and function, no wall motion abnormalities, EF 60-64%, stage I diastolic dysfunction,similar to 05/03 EEG 03/13/2022 normal EEG during wakefullness EGD, FLEXIBLE, DIAGNOSTIC 09/28/2016 , duodenal erosions/inpt [facility] EGD, FLEXIBLE, W/BIOPSY N/A 09/28/2016 [...] performed by Da Carter MD at OR [facility] REMOVE CATARACT, INSERT LENS PROSTH Right 06/03/2020 right EXTRACAPSULAR CATARACT REMOVAL WITH INTRAOCULAR LENS performed by Da Carter MD at OR [facility] US AAA SCREEN, RADIOLOGY 04/16/2014 2.9 cm max, no AAA US HEAD AND NECK 01/04/2019 [id number] mm Right lobe midpole mildly complex cystic nodule. FNA suggested VASC ANKLE BRACHIAL INDEX 07/18/2009 Right 1.1, left 1.2, normal VASC DUPLEX CAROTID BILAT 10/30/2007 no stenosis either carotid Isolation: Isolation: Procedure: : Laparoscopic Cholecystectomy; ROMAN block performed by the surgeon Type of Anesthesia: General endotracheal anesthesia Block: tap IV intake: 1000 mL EBL: OR: 50 mL PACU: 0 mL Urine output: OR 0 mL PACU 0 mL IUBC (Wing): Incision location: anb Dressing location: abd Time of last skin assessment: 1045 Pressure injuries or areas of concern: na Lines: Peripheral Line Anterior;Right 20 Gauge (Active) Status Capped/Locked;Flushes easily 10/12/23 1038 Tubing Changed N/A 10/12/23 1038 Phlebitis Scale 0 10/12/23 1038 Infiltration Scale 0 10/12/23 1038 Site Description (Other) Without redness, swelling or drainage 10/12/23 1038 Site Intervention None required 10/12/23 1038 Dressing Assessment Dressing clean, dry, and intact 10/12/23 1038 Dressing Intervention None required 10/12/23 1038 Number of days: 3 Peripheral Line Left;Upper (Active) Status Fluids infusing 10/12/23 1040 Tubing Changed N/A 10/12/23 1040 Phlebitis Scale 0 10/12/23 1040 Infiltration Scale 0 10/12/23 1040 Site Description (Other) Without redness, swelling or drainage 10/12/23 1040 Site Intervention None required 10/12/23 1040 Dressing Assessment Dressing clean, dry, and intact;Transparent dressing 10/12/23 1040 Dressing Intervention None required 10/12/23 1040 Number of days: Drain Right;Upper;Quadrant (Active) Status Bulb Suction 10/12/23 1038 Site Description Not visualized, dressing intact 10/12/23 1038 Dressing Assessment Dressing clean, dry, and intact 10/12/23 1038 Description of Output Sanguineous 10/12/23 1038 Dressing Intervention None required 10/12/23 1038 Number of days: 0 Vital Signs: BP: 136/66 (10/12/23 1055) Temp: 36.5 C (97.7 F) (10/12/23 1030) Pulse: 81 (10/12/23 1055) Resp: 19 (10/12/23 1055) SpO2: 92 % (10/12/23 1055) O2 flow rate: 10 L/MIN (10/12/23 1035) Glucose (Bedside): 180 (10/12/231029) Time of last pain medication: 1054 Med: dilaudid Time of last antibiotic: 0821 Med: mefoxin Time of last antiemetic: 0848 Med: zofran CONE EXAMINER: no Drips: no Neurological: Neuro WNL: WNL - within normal limits (10/12/23 0656) Speech: Unable to assess (10/12/231029) Level of Consciousness: Responds to voice (10/12/23 103) RUE Motor Strength: 5-Active movement with full resistance (10/12/23 103) RLE Motor Strength: 5-Active movement with full resistance (10/12/230) LUE Motor Strength: 5-Active movement with full resistance (10/12/23 103) LLE Motor Strength: 5-Active movement with full resistance (10/12/231029) Coma Score: 11 (10/12/23 103) Respiratory: Respiratory WNL: WNL- within normal limits (10/12/23 103) Cough: None (10/12/23 103) Depth/Rhythm: Regular (10/12/231029) Dyspnea Occurance: None (10/12/231029) Effort: Unlabored (10/12/231029) Oxygen therapy/ Mechanical vent O2 flow rate: 10 L/MIN (10/12/23 1035) Supplemental O2 Delivery: Non-rebreather Mask (10/12/231034) Cardiac: Cardiovascular WNL: X - Exceptions to WNL as documented below (10/12/231029) Heart Sounds: S1;S2 (10/12/23 103) Rhythm: Irregular;AFib (10/12/23 103) Extremities: +Sensation;Right;Left;Upper;Lower (10/12/231029) Pulses Right: Dorsalis Pedis +;Palpable;Radial + (10/12/230) Pulses Left: Dorsalis Pedis +;Palpable;Radial + (10/12/231029) Edema: No (10/12/231029) GI: GI WNL: X - Exceptions to WNL as documented below (10/12/231029) Abdomen: Tender (10/12/231029) Bowel Sounds: All Quadrants;Present (10/11/231999) : WNL: X - Exceptions to WNL as documented below (10/12/231029) Urine Description: Other-Describe (no urine to assess) (10/12/231029) Due to Void: 2030 Integumentary:Integumentary WNL: X - Exceptions to WNL as documented below (10/12/231029) Skin Description: Dry;Warm (10/12/231029) Skin Color: Flesh Tone;Mucus Membranes [place] (10/12/231029) Skin Lesion: Other - Describe (skin tear) (10/11/231999) [place] Score (auto-calculation): 20 (10/11/23 1230) Family updated on transfer: none present Additional Assessment Information: na * Jhon Carson RN - 10/12/2023 10:45 AM EST Dual Licensed Skin Assessment completed by jhon joyner. The patient is/has a N/A Skin Breakdown (includes non blanchable erythema): Yes - Surgical/Procedural changes only. * Justin Saldana RN - 10/12/2023 7:15 AM EST Dual Licensed Skin Assessment completed by Sanya Cadena RN and Tanvi Cadena RN. The patient is/has a N/A Skin Breakdown (includes non blanchable erythema): Yes. Wound Type: Skin tear, location left wrist Wound Ostomy Nurse Notified: No - care per ordered treatment Nursing interventions: Existing dressing from floor CDI * Alice Phillips RN - 10/11/2023 1:48 AM EST 10/10 2330 primary nurse was helping pt stand at bedside to use urinal. As pt stepped backwards to sit down pt lost balance and reached for the foot board as primary nurse grabbed pt to steady him. Pt created a skin tear on outside left wrist, nurse cleaned skin tear and applied dressing. ann López, was contacted and made aware, skin alteration group added to chart. Provider ordered bacitracin to be applied. Will continue to monitor. * Anahy Mendez RN - 10/09/2023 12:42 PM EST Dual Licensed Skin Assessment completed by Anahy Mendez RN and Tila Chavez RN. The patient is/has a N/A Skin Breakdown (includes non blanchable erythema): No documented in this encounter OR Notes * OR Surgeon - Jhony Waddell MD - 10/12/2023 9:50 AM EST [facility] [address] [address] OPERATIVE REPORT - BRIEF Name: Angel Nick Date: 10/12/2023 Time: 9:50 AM Location: [place] [facility] Service: Trauma Emergency Surgery Date of Operation: 10/12/2023 Pre-op Diagnosis: Acute on Chronic Cholecystitis Post-op Diagnosis: Same Operation: Laparoscopic Cholecystectomy; ROMAN block performed by the surgeon Surgeon: Jhony Waddell MD Assistants: MD Catalina Diggs MD Anesthesia: General endotracheal anesthesia Drains: (1) 19 Myron drain(s) in the gallbladder fossa Estimated Blood Loss: 150 ml. IV Fluids: 1000 ml. Urine Output: N/A Specimens/Disposition: Gallbladder and Contents Apparent Intraoperative Complications: NONE Patient Condition: stable Disposition: Post Anesthesia Care Unit Attestation: I was present and scrubbed for the entire procedure Indications for the procedure: 83-year-old male that presented to an outside hospital with what wasbelieved to be acute cholecystitis with high degree of risk given his comorbid conditions and was transferred to [facility] for evaluation of a cholecystostomy tube. Upon further evaluation the patient was deemed an appropriate candidate for cholecystectomy and was offered this in thesame admission. His Plavix and aspirin were held in the inpatient setting for several days preceding his cholecystectomy. Consent was obtained with a higher risk of bleeding then the average. Procedure in detail: After voicing approval with the procedure to be performed and consent was verified in the preoperative holding area the patient was brought back to the operative theater and placed in the supine position. Anesthesia was in charge of providing general endotracheal anesthesia. After this was done the abdomen was prepped and draped in a sterile surgical manner. A time-out was performed again identifying the patient the procedure. The patient was noted to have an umbilical hernia this was the site of our abdominal entry an open Redmond technique was utilized using a knife to enter the peritoneum Redmond port was then placed insufflation was obtained. Evaluation of the abdomen revealed no injuries upon entry and attention was turned toward the roman block which was performed with 0.25% bupivacaine. Three 5 mm ports were placed under direct visualization 1 subxiphoid and 2 subcostal the patient was then positioned appropriately to allow for dissection of the gallbladder which was identified and grasped and elevated towards the patient's right shoulder to allow for visualization of the infundibulum of the gallbladder. There were dense adhesions and inflammatory changes to the peritoneal lining as well as the gallbladder which was friable. Upon grasping the infundibulum of the gallbladder the gallbladder perforated and there was spillage of what appeared to be hydrops type fluid and stones these were irrigated and cleared prior to completion of the dissection. The dense inflammatory changes to the cystic region created difficulty in dissecting lower on the cysticduct however the critical view of safety was obtained the artery was taken 1st with 3 clips and scissors to allow for extension of the cystic duct dissection. However the cystic duct could not be dissected to a safe ability to clip with a 5 mm clip. We therefore upsized the subxiphoid port with theradial expanding 11 mm port and a 45 mm blue load Ethicon stapler was fired across the dilated cystic duct. Once the duct was divided the gallbladder was dissected free from the cystic plate using sandeep ctrocautery and removed using an Endo-Catch bag through the umbilical trocar site. We spent some time obtaining hemostasis and irrigating and suctioning debility effluent returned clear. We then placed a 19 Wallisian Myron drain in the gallbladder fossa. We utilized a 0 Vicryl suture to close the fascial of the 11 mm subxiphoid port site as well as 0 Vicryl for the umbilical trocar site. We then utilized 4-0 Monocryl for the skin and surgical glue for dressing. Patient tolerated the procedure wellall counts were correct at the end of the case I was present scrubbed throughout the entirety of the case the patient will be brought to the recovery room and then transferred back to the medical-surgical floor. documented in this encounter Miscellaneous Notes * Ancillary Progress Note - Rebekah Donnelly LSW - 10/15/2023 2:14 PM EST CARE MANAGEMENT - ADULT DISCHARGE NOTE [facility] [address] Name: Angel Nick Location: [facility] B640/B Date: 10/15/2023 Time: 2:14 PM The following coordination of care and discharge plan has been coordinated with the care team, patient, family and/or caregiver according to the patients needs and preferences. Discharge Discharge Second Notice Important Message from Medicare delivered: Yes (10/15/23 1000) Date Delivered: 10/13/23 (10/15/23 1000) Was Caregiver/Family/Facility contacted regarding discharge: Yes (10/15/23 1000) Discharge Transportation: Family/Friends drive (10/15/23 1000) Date of scheduled discharge transportation: 10/15/23 (10/15/23 1000) Time of scheduled discharge transportation: 1500 (10/15/23 1000) Patient declined post-hospital transition of care recommendation: Detention Facility (10/11/23 1218) Final Discharge Plan (Complete only at time of Discharge): Home with Services (10/15/23 1000) Durable Medical Equipment - Admitted Since 10/09/2023 Service Provider Selected Services Address Phone Fax Patient Preferred Last Updated [facility] Durable Medical Equipment [address] [facility] [address] [phone] -- Rebekah Donnelly LSW 10/15/2023 [address] [facility] [employer] Equipment [address] [facility] [address] [phone] -- Rebekah Donnelly LSW 10/15/2023 1412 Durable Medical Equipment - Episodes Includes Durable Medical Equipment providers with selected services from the active episodes listed below Level 2 Complex Case Management Episode start date: 10/11/2023 There are no active outsourced providers for this episode. Narrative: Confirmed with [facility] that [employer] has accepted O2 order. [facility] will start 10/18. Reviewed d/c plan with patient's family at bedside. O2 tank from consignment closet has been delivered. [employer] will need to deliver concentrator to home. * Ancillary Progress Note - Rebekah Donnelly LSW - 10/15/2023 10:48 AM EST CARE MANAGEMENT - ADULT TRANSITION NOTE [facility] [address] Name: Angel Nick Location: [facility] B640/B Date: 10/15/2023 Time: 10:48 AM Risk Stratification Risk Stratification Psycho Social / Medical Concerns Identified: Adjustment to illness/injury (10/11/231217) Accessed Neighbor[employer] to connect patients to social care resources: No (10/11/231217) OBRA or OPTIONS needed for placement: No (10/11/231217) Readmission Risk Score: 11 (10/15/23 0800) AM-PAC Score With Stairs : 20 (10/15/23 0830) Caregiver Information Patient Contacts Name Relation Home Work Mobile Aakash Nick Sibling [phone] JEREMYSANDOVAL STEEN Other - (no specific identity) [phone] JUSTIN NICK Adult Child [phone] Transition of Care Checklist Transition of Care Checklist (aka Readmission Risk Score) Discharge Disposition: Home w/Home Health (10/15/23 1000) Narrative: Called and spoke with patient's family, Kacie Steen. Notified her still working on getting O2 set up. SW faxed O2 script to [employer] [facility]. Will await their call to determine which DME provider will be supplying O2. Once this is all confirmed and delivered, can discharge. Set up with [facility] 10/18. Will confirm patient is ready to discharge with final discharge note later today. Anticipated Transportation at Discharge: family Patient/Family Expectations: home w/ services Transition Planning Additional Considerations: none Care Management will continue to monitor and assist with discharge planning needs * Progress Notes - Post-Op Global - Jose L Viveros MD - 10/15/2023 5:14 AM EST PROGRESS NOTE - Trauma/Emergency Surgery [facility] [address] Name: Angel Nick Location: [facility] B640/B Date: 10/15/2023 Time: 5:14 AM DIAGNOSIS: Acute on chronic cholecystitis PROCEDURE: Procedure(s) (LRB): LAPAROSCOPIC CHOLECYSTECTOMY (N/A) DATE OF SURGERY: 10/12/2023 POST OP DAY: 3 Days Post-Op SUBJECTIVE: Patient examined at bedside. AF, DANAY RASHEED. Underwent nocturnal oximetry last night. OBJECTIVE: Most Recent Vital Signs: BP: 155 mmHg/70 mmHg (10/15/23 0320) Pulse: 69 (10/15/23 0320) Temp: 36.11 C (10/15/23 0320) Resp: 16 (10/15/23 032) SpO2: 95 % (10/15/23319) Vital Signs Last 24 Hours: Systolic BP: Most Recent Systolic BP Av.8 mmHg Min: 141 mmHg Max: 167 mmHg Temperature: Most Recent Temperature Av.6 C Min: 36.11 C Max: 37 C Pulse: Pulse Av.7 Min: 66 Max: 79 Respirations: Resp Av.3 Min: 16 Max: 18 SpO2: SpO2 Av.1 % Min: 92 % Max: 97 % In / Out Past 24 Hrs: Intake/Output Summary (Last 24 hours) at 10/15/2023513 Last data filed at 10/15/2023 0322 Gross per 24 hour Intake 960 ml Output 660 ml Net 300 ml Physical Exam: General: no acute distress Head: normocephalic, atraumatic Eyes: extraocular movements intact ENT: oropharynx clear, mucus membranes moist Neck: supple, trachea midline CV: normal rate, regular rhythm Pulm: normal respiratory effort Abdomen: soft, mildly distended, appropriately tender Surgical site: lap incisions C/D/I with Dermabond in place Extremities: warm, well-perfused, no edema Skin: warm, dry, intact LABS: No postop labs to review IMAGING: No postop imaging to review Sutures/red to be removed?: no sutures to be removed Central line to be removed or continued?: patient does not have central venous access Current DVT/PE prophylaxis is?: sequential compression devices (SCD's) and lovenox Current stress ulcer prophylaxis is?: diet by mouth Medication administration record reviewed this visit?: Yes IMPRESSION: Principal Problem: Acute cholecystitis Active Problems: BPH without obstruction/lower urinary tract symptoms Type 2 diabetes mellitus with hemoglobin A1c goal of less than 7.5% ([facility]) Primary hypertension Dyslipidemia, goal LDL below 70 History of CVA (cerebrovascular accident) Bradycardia, sinus Current moderate episode of major depressive disorder without prior episode ([facility]) Gastro-esophageal reflux disease without esophagitis Resolved Problems: * No resolved hospital problems. * 3M w/ multiple medical comorbidities and hx of symptomatic cholelithiasis presenting 10/09 as transfer from [facility] out of c/f Acute Cholecystitis & possible need for PCT. Patient underwent lap jose m on 10/12. PLAN: - Plan for discharge today pending noc ox results IVF: DC DVT/PE ppx: sequential compression devices (SCD's) and lovenox Analgesia: scheduled tylenol, prn oxy 5/10 Diet: Regular diet GI ppx: diet by mouth Nausea: prn zofran Bowel Regimen: none Wing: N/A Antibiotics: none indicated Labs: AM CBC, BMP, mag, phos, LFTs Drains/Lines: PIVs, drain out [place]/Sutures: none Activity: OOB as tolerated Respiratory: IS Resumed Home Medications: atorvastatin, citalopram, fluticasone, gabapentin, omeprazole, flomax Held Home Medications: plavix Dispo: Discharge today Patient seen and discussed with Dr. 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 I have reviewed the trainee note and agree. Alice Rodriguez MD [address] [place] [id number] 10/15/2023. * Ancillary Progress Note - Al Burton RN - 10/14/2023 11:15 AM EST CARE MANAGEMENT - ADULT TRANSITION NOTE [facility] [address] Name: Angel Nick Location: [facility] B640/B Date: 10/14/2023 Time: 11:15 AM Risk Stratification Risk Stratification Psycho Social / Medical Concerns Identified: Adjustment to illness/injury (10/11/231217) Accessed [employer] to connect patients to social care resources: No (10/11/231217) OBRA or OPTIONS needed for placement: No (10/11/23 121) Readmission Risk Score: 10.59 (10/14/23 0801) AM-PAC Score With Stairs : 18 (10/14/23 0353) Caregiver Information Patient Contacts Name Relation Home Work Mobile Aakash Nick Sibling [phone] DANNY LUNAJESUS ALBERTO Other - (no specific identity) [phone] JUSTIN NICK Adult Child [phone] Transition of Care Checklist Narrative: Pt discussed in IDT Rounds today. Surgery patient discussed with [facility] this morning. Possible mkedically ready to discharge today pending Amb Ox study and obtaining HH services. CM spoke with Angel at bedside- states he discussed with brother Aakash, who has questions. Pt agreeable to CM calling Aakash. CM called brother at mobile number above and spoke with Aakash and . Family agreeable to HH services: 1st choice [facility] and 2nd [facility]. CM requested MAGUI Nova to call referrals to agencies- no further preference after first two choices. Brother states primary doctor changing to Dr Giron at same practice when Dr Feliciano retires. UPDATES: - [facility] reviewing. - [facility] an offer SOC 10/18/23. Awaiting on [facility] response. - CM received call from [facility]: unable to accept d/t staffing. - CM called and spoke to Leila at [facility] and accepted SOC for 10/18/2023. Please contact CM with any further concerns. Anticipated Transportation at Discharge: brother Patient/Family Expectations: home with HH Transition Planning Additional Considerations: none Care Management will continue to monitor and assist with discharge planning needs * Progress Notes - Non-Billable - Belinda Young CRNP - 10/14/2023 10:29 AM EST PROGRESS NOTE - General Surgery Discharge Transition [facility] [address] Name: Angel Nick Location: [facility] B640/B Date: 10/14/2023 Time: 10:29 AM Admitting Diagnosis: acute on chronic cholecystitis PROCEDURE: 10/12/23 lap cholecystectomy Estimated Discharge Date: 10/14/2023 Subjective: Pt was resting in bed comfortably. On oxygen 3L/min ,denied using home oxygen. Denied h/o COPD. Tolerated breakfast, , denied nausea/vomiting. Incisional pain controlled. Ambulating. Voiding without difficulty. (+) flatus. no BM. Wagreed to use [facility] . Lives alone but brother lives close by and change on him daily. Review of Systems: Constitutional: (-) fever chills sweats or weight loss Abdominal/GI: (-) negative: no pain, heartburn, dysphagia, bleeding, change in bowel habits, nauseaor vomiting Most Recent Vital Signs: BP: 149 mmHg/85 mmHg (10/14/23830) Pulse: 75 (10/14/23830) Temp: 36.39 C (10/14/23830) Resp: 16 (10/14/23830) SpO2: 97 % (10/14/23830) Constitutional: no acute distress Abdomen: soft, no tenderness, nondistended Surgical site: incision CDI with dermabond, CARRIE drain in place. Lab and Radiology: Pending results: No results pending Discharge Preparation: Consultation: No pending consultations to be completed Discharge Medication Plans: Pain Management: oxycodone DVT Needs: None GI: None Antibiotics: None Stool Softener: None Anticipated Diet at Discharge: Regular Disposition / Needs Post Discharge: Home Return Appointments Planned: Dr Quiles on 10/12/23 for surgery consultation Ambulatory oxygen test. Will follow up for discharge planning. FRACISCO Hoskins 10/14/2023 10:31am * Care Plan - Aimee Thomas RN - 10/14/2023 6:43 AM EST Clinical Goal(s): Patient will remain free from fall/injury (10/13/23 2300) Possible barriers to meeting goal(s)/advancing plan of care: recent fall, surgery and hospitalization Stability of the patient: Moderately stable - low risk of patient condition declining or worsening Summary regarding today's goal(s): Met: Patient remained free from fall or injury Recommendations: Continue appropriate fall precautions, non-skid foot wear at all times, continue bed alarms & personal alarms, Conduct hourly safety rounds, continue 1:1 and all other fall precautions per protocol. Problem: Safety & Risk for Injury Goal: Patient will remain free from injury. Outcome: Progressing Problem: Actual & Potential for Falls Goal: Patient will remain free of falls. Outcome: Progressing * Ancillary Progress Note - Rebekah Donnelly LSW - 10/13/2023 1:35 PM EST HOME HEALTH/HOSPICE REFERRAL FORM CARE MANAGEMENT [address] [address] Referred By: Nathaly Onofre RN Admission Date: 10/09/2023 Discharge Date: 10/15 Discharge Time: afternoon Start Date: 10/18/2023 Agency Referred To: [facility] ([facility] PATIENT INFORMATION: Name: Angel Nick [address]: [address] [place] [id number] : 1940 (home) SSN: [id number] County: [place] [facility] Contacts: Extended Emergency Contact Information Primary Emergency Contact: Aakash Nikc Monahans Relation: Sibling Preferred language: Latvian Balance Clerk needed? No Secondary Emergency Contact: SANDOVAL LUNA Mobile Relation: Other - (no specific identity) Balance Clerk needed? No MEDICAL INFORMATION: Principal Diagnosis: Acute cholecystitis Other Diagnosis: See attached History and Physical Surgery and Dates: Past Surgical History: Procedure Laterality Date COLONOSCOPY 02/2008 had GI bleed and was admitted to [facility] in [facility] COLONOSCOPY, DIAGNOSTIC (RECTUM) 08/2004 to evaluate GI bleed COLONOSCOPY, DIAGNOSTIC (RECTUM) 10/21/2016 adenomatous polyp, repeat 2 yrs/COLONOSCOPY FLEXIBLE PROXIMAL DIAGNOSTIC performed by Richardson Leone MD at ENDOSCOPY [facility] COLONOSCOPY, DIAGNOSTIC (RECTUM) 07/19/2019 5 mm adenomatous polyp at 30 cm, performed by Richardson Leone MD at ENDOSCOPY [facility] CTA HEAD W CONTRAST 12/30/2018 dimunative left vertebral artery with thrombus, large right mastoid effusion, 2 cm right thyroid nodule ECHO, COMPLETE (2D), TRANS-THORACIC 03/15/2019 normal LV size and function, no wall motion abnormalities, EF 60-64%, stage I diastolic dysfunction,similar to 05/03 EEG 03/13/2022 normal EEG during wakefullness EGD, FLEXIBLE, DIAGNOSTIC 09/28/2016 , duodenal erosions/inpt [facility] EGD, FLEXIBLE, W/BIOPSY N/A 09/28/2016 [...] severe chronic white matter changes, volume loss LAPAROSCOPY; CHOLECYSTECTOMY N/A 10/12/2023 LAPAROSCOPIC CHOLECYSTECTOMY performed by Jhony Waddell MD at OR [facility] MYOCARDIAL PERFUSION SPECT MULTIPLE STUDIES 04/21/2018 negative for inducible ischemia, normal LV size and function, EF >65% REMOVE CATARACT, INSERT LENS PROSTH Left 05/27/2020 left EXTRACAPSULAR CATARACT REMOVAL WITH INTRAOCULAR LENS performed by Da Carter MD at OR [facility] REMOVE CATARACT, INSERT LENS PROSTH Right 06/03/2020 right EXTRACAPSULAR CATARACT REMOVAL WITH INTRAOCULAR LENS performed by Da Carter MD at OR [facility] US AAA SCREEN, RADIOLOGY 04/16/2014 2.9 cm max, no AAA US HEAD AND NECK 01/04/2019 [id number] mm Right lobe midpole mildly complex cystic nodule. FNA suggested VASC ANKLE BRACHIAL INDEX 07/18/2009 Right 1.1, left 1.2, normal VASC DUPLEX CAROTID BILAT 10/30/2007 no stenosis either carotid Diet: Adults: As tolerated Allergies: Patient has no known allergies. Isolation Type: None Activity Restrictions: Activity as tolerated Isolation For: None HOME CARE ORDERS: (Discipline and Frequency): Overall health assessment and vital signs Medication management and teaching Disease management and teaching Home safety evaluation Assess for services PT/OT evaluation as indicated Labwork as indicated Medications Dose, Frequency, & Route: See attached Equipment and Supplies: N/A Ordering Physician and Contact Information: Dr Urrutia [phone] Comments: Brother Aakash Nick assists with home needs and requesting call to assist with home visits at [phone] PCP: PCP: DAVID PALM [address] [place] [address] [place] [address] Per family, Dr Giron at same practice to replace Dr Elizabeth when retires. D/C Physician: Dr Urrutia Insurance: See attached facesheet. * Ancillary Progress Note - Nathaly Onofre RN - 10/13/2023 1:34 PM EST CARE MANAGEMENT - ADULT TRANSITION NOTE [address] [address] Name: Angel Nick [place] [facility] Date: 10/13/2023 Time: 1:34 PM Risk Stratification Risk Stratification Psycho Social / Medical Concerns Identified: Adjustment to illness/injury (10/11/23 1218) Accessed Neighborly to connect patients to social care resources: No (10/11/23 1218) OBRA or OPTIONS needed for placement: No (10/11/23 1218) Readmission Risk Score: 10.57 (10/13/23 1201) AM-PAC Score With Stairs : 18 (10/13/23 0800) Caregiver Information Patient Contacts Name Relation Home Work Mobile Aakash Nick Sibling [phone] SANDOVAL LUNA Other - (no specific identity) [phone] JUSTIN NICK Adult Child [phone] Transition of Care Checklist Narrative: Patient discussed in AM BOOST rounds and chart reviewed. Met with the patient at bedsideand discussed therapy recs. Patient declined SNF. Provided patient with Repisodic HH list. Patient reports he will review with his brother. CM will continue to follow and support any needs. Anticipated Transportation at Discharge: Family Patient/Family Expectations: Return home when medically stable, likely with HH Transition Planning Additional Considerations: Care Management will continue to monitor and assist with discharge planning needs * Progress Notes - Post-Op Global - Jose L Viveros MD - 10/13/2023 11:41 AM EST PROGRESS NOTE - Trauma/Emergency Surgery [address] [address] Name: Angel Nick [place] [facility] B[facility] Date: 10/13/2023 Time: 11:41 AM DIAGNOSIS: Acute on chronic cholecystitis PROCEDURE: Procedure(s) (LRB): LAPAROSCOPIC CHOLECYSTECTOMY (N/A) DATE OF SURGERY: 10/12/2023 POST OP DAY: 1 Day Post-Op SUBJECTIVE: Patient examined at bedside. Had fall last night. According to night team, he was trying to turn off his oxygen and he fell, requiring assistance to get up. Patient has remained stable since that time. OBJECTIVE: Most Recent Vital Signs: BP: 149 mmHg/72 mmHg (10/13/23754) Pulse: 63 (10/13/23754) Temp: 36.11 C (10/13/23 075) Resp: 16 (10/13/23754) SpO2: 95 % (10/13/23 0900) Vital Signs Last 24 Hours: Systolic BP: Most Recent Systolic BP Av mmHg Min: 104 mmHg Max: 160 mmHg Temperature: Most Recent Temperature Av.2 C Min: 36.11 C Max: 37.89 C Pulse: Pulse Av.4 Min: 62 Max: 97 Respirations: Resp Av.1 Min: 16 Max: 18 SpO2: SpO2 Av.1 % Min: 92 % Max: 98 % In / Out Past 24 Hrs: Intake/Output Summary (Last 24 hours) at 10/13/2023 1141 Last data filed at 10/13/2023 0918 Gross per 24 hour Intake 640 ml Output 1895 ml Net -1255 ml Physical Exam: General: no acute distress Head: normocephalic, atraumatic Eyes: extraocular movements intact ENT: oropharynx clear, mucus membranes moist Neck: supple, trachea midline CV: normal rate, regular rhythm Pulm: normal respiratory effort Abdomen: soft, mildly distended, appropriately tender Surgical site: lap incisions C/D/I with Dermabond in place Extremities: warm, well-perfused, no edema Skin: warm, dry, intact LABS: No postop labs to review IMAGING: No postop imaging to review Sutures/red to be removed?: no sutures to be removed Central line to be removed or continued?: patient does not have central venous access Current DVT/PE prophylaxis is?: sequential compression devices (SCD's) and lovenox Current stress ulcer prophylaxis is?: diet by mouth Medication administration record reviewed this visit?: Yes IMPRESSION: Principal Problem: Acute cholecystitis Active Problems: 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 * 3M w/ multiple medical comorbidities and hx of symptomatic cholelithiasis presenting 10/09 as transfer from [facility] out of c/f Acute Cholecystitis & possible need for PCT. Patient underwent lap jose m on 10/12. PLAN: - Seen by PT/OT, [facility] 18 - Plan for home health on discharge IVF: DC DVT/PE ppx: sequential compression devices (SCD's) and lovenox Analgesia: scheduled tylenol, prn oxy 5/10 Diet: Regular diet GI ppx: diet by mouth Nausea: prn zofran Bowel Regimen: none Wing: N/A Antibiotics: none indicated Labs: AM CBC, BMP, mag, phos, LFTs Drains/Lines: PIVs Red/Sutures: none Activity: OOB as tolerated Respiratory: IS Resumed Home Medications: atorvastatin, citalopram, fluticasone, gabapentin, omeprazole, flomax Held Home Medications: plavix Patient seen and discussed with Dr. 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 I have reviewed the trainee note and agree. 83-year-old male now status post laparoscopic cholecystectomy for acute on chronic cholecystitis, he has a drain left in place due to difficulty in the procedure however there is minimal output and it is serosanguineous. He did suffer an in-hospital fall with some confusion overnight however has not had any issues afterwards and workup was negative for any trauma. Given the fall we will order PT OT to evaluate him as he may need placement we will continue to observe today. * Ancillary Progress Note - Salvador Najera RDN - 10/13/2023 8:20 AM EST CLINICAL NUTRITION ADULT RISK ASSESSMENT [address] [address] Name: Angel Nick [place]: [facility] B[facility]/B Date: 10/13/2023 Time: 8:20 AM Patient identified as a possible nutrition risk for skin breakdown. Chart reviewed and noted Skin tear L wrist. Do not feel breakdown warrants nutrition intervention at this time. Please consult if nutrition intervention desired. Salvador Najera RDN N [facility] Clinical Nutrition Services [place] Text / x [phone] * Communication - Tom Strong MD - 10/12/2023 8:24 PM EST Alerted patient had fallen Unwitnessed, and need assistance to get back into bed. BP 104/64 | Pulse 97 | Temp 37.1 C (98.8 F) (Tympanic) | Resp 18 | Ht 1.74 m (5' 8.5") | Wt 95.3 kg (210 lb) | SpO2 92% | BMI 31.47 kg/m | BSA 2.15 m Patient seen at bedside. Says he was trying to get up to turn off his oxygen when he fell. No syncope precursor symptoms. Was assisted up. Reports hitting his head. Denies loc. Denies headache, dizziness, light headedness. Cranial nerves grossly intact, Equal and full strength / sensation throughout. No C/T/L tenderness. Given un witnessed fall with impact to head while on Lovenox, will proceed with CT head Tom Strong MD General Surgery PGY-1 [facility] This note was written with the assistance of Direct Fluency Dictation. Speech to Text dictation maylead to error in translation. A reasonable attempt was made to clarify any errors. If there is any further misunderstanding please contact property underwriter via. [place]-text role. * Progress Notes - Non-Billable - Catalina Colmenares MD - 10/12/2023 1:55 PM EST PROGRESS NOTE - Trauma/Emergency Surgery [facility] [address] Name: Angel Nick Location: [facility] B640/B Date: 10/12/2023 Time: 1:55 PM DIAGNOSIS: Acute on chronic cholecystitis PROCEDURE: Procedure(s) (LRB): LAPAROSCOPIC CHOLECYSTECTOMY (N/A) DATE OF SURGERY: 10/12/2023 POST OP DAY: Day of Surgery - POC SUBJECTIVE: Patient resting comfortably in bed. Pain is well-controlled. Has not tried drinking any liquids yet. Denies chest pain, SOB, nausea, vomiting. Has not yet voided, has not yet ambulated. OBJECTIVE: Most Recent Vital Signs: BP: 139 mmHg/84 mmHg (10/12/23 1233) Pulse: 95 (10/12/23 1233) Temp: 37.22 C (10/12/23 1233) Resp: 18 (10/12/23 123) SpO2: 95 % (10/12/23 123) Vital Signs Last 24 Hours: Systolic BP: Most Recent Systolic BP Av.6 mmHg Min: 102 mmHg Max: 192 mmHg Temperature: Most Recent Temperature Av.5 C Min: 36 C Max: 37.22 C Pulse: Pulse Av.6 Min: 56 Max: 95 Respirations: Resp Av.6 Min: 16 Max: 22 SpO2: SpO2 Av.8 % Min: 88 % Max: 100 % In / Out Past 24 Hrs: Intake/Output Summary (Last 24 hours) at 10/12/2023 1355 Last data filed at 10/12/2023 1233 Gross per 24 hour Intake 1000 ml Output 840 ml Net 160 ml Physical Exam: General: no acute distress Head: normocephalic, atraumatic Eyes: extraocular movements intact ENT: oropharynx clear, mucus membranes moist Neck: supple, trachea midline CV: normal rate, regular rhythm Pulm: normal respiratory effort Abdomen: soft, mildly distended, appropriately tender Surgical site: lap incisions C/D/I with Dermabond in place Extremities: warm, well-perfused, no edema Skin: warm, dry, intact LABS: No postop labs to review IMAGING: No postop imaging to review Sutures/red to be removed?: no sutures to be removed Central line to be removed or continued?: patient does not have central venous access Current DVT/PE prophylaxis is?: sequential compression devices (SCD's) and lovenox Current stress ulcer prophylaxis is?: diet by mouth Medication administration record reviewed this visit?: Yes IMPRESSION: Principal Problem: Acute cholecystitis Active Problems: BPH without obstruction/lower urinary tract symptoms Type 2 diabetes mellitus with hemoglobin A1c goal of less than 7.5% ([facility]) Primary hypertension Dyslipidemia, goal LDL below 70 History of CVA (cerebrovascular accident) Bradycardia, sinus Current moderate episode of major depressive disorder without prior episode ([facility]) Gastro-esophageal reflux disease without esophagitis Resolved Problems: * No resolved hospital problems. * 3M w/ multiple medical comorbidities and hx of symptomatic cholelithiasis presenting 10/09 as transfer from [facility] out of c/f Acute Cholecystitis & possible need for PCT. Patient now with negative HIDA scan, no concern for acute cholecystitis. PLAN: IVF: D51/2 NSS + 20 Kcl @ 50 mL/hr DVT/PE ppx: sequential compression devices (SCD's) and lovenox Analgesia: scheduled tylenol, prn oxy 5/10 Diet: Clear liquid diet GI ppx: diet by mouth Nausea: prn zofran Bowel Regimen: none Wing: N/A Antibiotics: none indicated Labs: AM CBC, BMP, mag, phos, LFTs Drains/Lines: PIVs [place]/Sutures: none Activity: OOB as tolerated Respiratory: IS Resumed Home Medications: atorvastatin, citalopram, fluticasone, gabapentin, omeprazole, flomax Held Home Medications: plavix Consults Requested: PT/OT Catalina Colmenares MD General Surgery, PGY1 [facility] 10/12/2023 1:55 PM TigerText: [facility] Emergency Surgery Resident 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 Patient is currently off the floor in the OR. Will complete as able and appropriate Nena Finch MS OTR/Mica Occupational Therapy [facility] 10/12/2023 7:40 AM * Ancillary Progress Note - Anna Fox RN - 10/11/2023 12:24 PM EST CARE MANAGEMENT - ADULT INITIAL SCREENING [address] [address] Name: Angel Nick Location: [address] Date: 10/11/2023 Time: 12:24 PM Discussed patient with the interdisciplinary care team. This Parts Representative performed a chart review and met with pt at bedside to complete admission screen and assessed needs for transition planning. The small animal caretaker role and services were explained and emotional support was provided. Chief Complaint: No chief complaint on file. Prior Living Arrangements What was your living situation prior to admission/observation?: Independently;Alone (10/11/231217) Living Quarters: House (10/11/231217) Number of steps to enter living quarters:: 2 (10/11/231217) Do you have serious difficulty walking or climbing stairs? (5 years old or older): Yes (10/09/231229) History of falling: Yes (10/10/231999) Prior Level of Functioning Describe the patient's ability prior to admission/observation to perform ADLs: Performs independently (10/11/231217) Describe the patient's mobility status prior to admission: Patient ambulates independently;Patient can sit up in bed;Patient is able to sit on bedside (10/11/231217) Patient uses assistive device: Yes (10/11/231217) If yes, choose:: Cane (10/11/231217) Caregiver Information Patient Contacts Name Relation Home Work Mobile Aakash Nick Sibling [phone] SANDOVAL LUNA Other - (no specific identity) [phone] JUSTIN NICK Adult Child [phone] Risk Stratification/Psychosocial/Care Gaps Risk Stratification Psycho Social / Medical Concerns Identified: Adjustment to illness/injury (10/11/231217) Accessed Neighborly to connect patients to social care resources: No (10/11/231217) OBRA or OPTIONS needed for placement: No (10/11/231217) Readmission Risk Score: 12.46 (10/11/23 1201) AM-PAC Score With Stairs : 19 (10/11/23 1158) Prior to Admission Services Services Prior to Admission INVENTORY CONTROL SPECIALIST Services (Services received within the last 30 days with exception, Psych within last two years): Home Health (10/11/231217) List All Provider/Service Name: [facility] (10/11/231217) Agency contacted: Yes (10/11/231217) [place] [employer] (PDA) Waiver Program: N/A (10/11/231217) INVENTORY CONTROL SPECIALIST Transportation (Services received within the last 30 days): Patient drives self (10/11/231217) Outpatient Parts Representative: Patient Care Team: Pati Webber RN as Instructor Watch Assembly (Registered Nurse) Patient/Family Expectations: Pt lives alone in a 2 story home. Pt has 2 steps to enter his home andas pert he pt he does not have any difficulty with steps. Pt has a cane in his home that he uses occasionally but does not have any home O2 in hi home. As per the pt he is independent, does not drivebut his brother Aakash helps him ou and he has support. Pt did not have a prior SNF stay but was active with [facility] and [facility] For further screening information, please refer to the Care Management flow document. * Progress Notes - Non-Billable - Belinda Young CRNP - 10/11/2023 9:47 AM EST PROGRESS NOTE - General Surgery Discharge Transition [facility] [address] Name: Angel Nick [place]: [facility] B[facility]/B Date: 10/11/2023 Time: 9:47 AM Admitting Diagnosis: Cholelithiasis and gallbladder sludge PROCEDURE: none Estimated Discharge Date: 10/11/2023 Subjective: Pt was resting in bed comfortably. Tolerated breakfast, denied nausea/vomiting. Incisional pain controlled. Ambulating. Voiding without difficulty. Wants to have surgery done tomorrow. Review of Systems: Constitutional: (-) fever chills sweats or weight loss Abdominal/GI: (-) negative: no pain, heartburn, dysphagia, bleeding, change in bowel habits, nauseaor vomiting Most Recent Vital Signs: BP: 146 mmHg/74 mmHg (10/11/23 08) Pulse: 70 (10/11/23 08) Temp: 36.11 C (10/11/23 08) Resp: 16 (10/11/23 0300) SpO2: 94 % (10/11/23842) Constitutional: no acute distress Abdomen: soft, no tenderness, nondistended Lab and Radiology: Pending results: No results pending Discharge Preparation: Consultation: No pending consultations to be completed Discharge Medication Plans: Pain Management: none DVT Needs: None GI: None Antibiotics: None Stool Softener: None Anticipated Diet at Discharge: Regular Disposition / Needs Post Discharge: Home Return Appointments Planned: Dr Quiles on 10/12/23 for surgery consultation TT send to [facility] to let them know pt would like to have surgery done inpt if able. Will follow up for discharge planning. FRACISCO Hoskins 10/11/2023 9:49am Received text from Dr Quiles, pt should see surgeon @ [place]. Will have museum service scheduler check if any of surg purple surgeon go to [place] if pt does not get surgery this admission. FRACISCO Hoskins 10/11/2023 10:02am * Communication - Graciela Jackson MD - 10/11/2023 5:14 AM EST 10/11/2023 5:14 AM Brief Interventional Radiology Progress Note HIDA images negative for acute cholecystitis. No indication for cholecystostomy drain. Please contact IR with any questions or concerns. Graciela Jackson MD, FACP PGY 6 - Fellow Vascular and Interventional Radiology * Care Plan - Alice Phillips RN - 10/11/2023 4:28 AM EST Clinical Goal(s): pt will remain fall free during this admission. (10/10/23 0700) Possible barriers to meeting goal(s)/advancing plan of care: disoriented upon waking Stability of the patient: Moderately unstable - medium risk of patient condition declining or worsening Summary regarding today's goal(s): Met: pt remained free from falls Recommendations: continue to use bed alarm, keep floor free from clutter, use nonskid footwear, reorient as needed, reinforce use of call soto before getting OOB * Care Plan - Alice Phillips RN - 10/10/2023 4:49 AM EST Clinical Goal(s): pt will remain free from falls (10/10/23 0000) Possible barriers to meeting goal(s)/advancing plan of care: recent fall and disoriented at times Stability of the patient: Moderately unstable - medium risk of patient condition declining or worsening Summary regarding today's goal(s): Met: pt remained free from falls Recommendations: continue to use bed alarms, keep floor free of clutter, use nonskid footwear, and use assistance when OOB * Communication - Graciela Jackson MD - 10/09/2023 2:51 PM EST Images from OSH reviewed, not very convincing for acute cholecystitis. D/W Dr. Comer (IR attending police liaison officer). Also d/w Surgery team - plan is to obtain repeat US and HIDA to r/o acute cholecystitis. If indicated IR will perform cholecystostomy. Graciela Jackson MD, FACP PGY 6 - Fellow Vascular and Interventional Radiology * Communication - Graciela Jackson MD - 10/09/2023 1:03 PM EST Images from the original note were not included. Tried calling both # atleast 3 times for consent, Justin 's # is non functioning. Aakash's # is going to voice mail. Graciela Jackson MD, FACP PGY 6 - Fellow Vascular and Interventional Radiology documented in this encounter Plan of Treatment Upcoming Encounters Date Type Department Care Team (Late st Contact Info) Description 10/25/2023 11:20 AM EST Office Visit Family [address] [phone] David Palm MD [address] [place] [address] [place] [address] 10/26/2023 2:00 PM EST Office Visit General Surgery, [address] [address] Nia Arteaga PA-C [address] [place] [address] 01/10/2024 2:30 PM EDT Office Visit Family Medicine [address] [phone] Rebekah Giron DO [address] [place] [address] [place] [address] 02/28/2024 1:00 PM EDT Office Visit Cardiology [address] [place] [address] Frederick Buck PA-C [address] [place] [address] 07/04/2024 3:00 PM EDT Nurse Only Ancillary [place] [address] [place] [address] [place], Nurse [address] [place] [address] Scheduled Orders Name Type Priority Associated Diagnoses Orde r Schedule EKG EKG Routine Pre-op evaluation One Time for 1 Occurrences starting 10/10/2023 until 10/10/2023 Scheduled Procedures Name Priority Associated Diagnoses Date/Ti [...] 03/11/2023, Additional history exists Depression Screening 06/28/2024 06/28/2023 [...] this encounter Medical Devices Implanted Type Area Detective Precinct Device Identifier Shelf Expiration Date Model / Serial / Lot Lens Intraoc 21.5 - [id number] - [id number] Implanted:Qty: 1 on 05/27/2020 by Da Carter MD at OR [facility] Left: Eye [employer] 09/15/2024 [id number] / [id number] / Lens Intraoc 22.5 - [id number] - [id number] Implanted:Qty: 1 on 06/03/2020 by Da Carter MD at OR [facility] Right: Eye [employer] 09/15/2024 [id number] / [id number] / [id number] documented as of this encounter Procedures Procedure Name Priority Date/Time Associated Diagnosis Comments GLUCOSE METER, POINT OF CARE JAY 10/15/2023 11:35 AM EST NOCTURNAL OXIMETRY (INPATIENT) Routine 10/15/2023 7:43 AM EST BASIC METABOLIC PANEL Routine 10/15/2023 7:29 AM EST PHOSPHORUS Routine 10/15/2023 7:29 AM EST CBC Routine 10/15/2023 7:29 AM EST MAGNESIUM Routine 10/15/2023 7:29 AM EST GLUCOSE METER, POINT OF CARE JAY 10/15/2023 7:04 AM EST GLUCOSE METER, POINT OF CARE JAY 10/14/2023 9:16 PM EST GLUCOSE METER, POINT OF CARE JAY 10/14/2023 4:33 PM EST GLUCOSE METER, POINT OF CARE JAY 10/14/2023 11:05 AM EST BASIC METABOLIC PANEL Routine 10/14/2023 8:23 AM EST PHOSPHORUS Routine 10/14/2023 8:23 AM EST CBC Routine 10/14/2023 8:23 AM EST MAGNESIUM Routine 10/14/2023 8:23 AM EST GLUCOSE METER, POINT OF CARE JAY 10/14/2023 7:14 AM EST GLUCOSE METER, POINT OF CARE JAY 10/13/2023 9:50 PM EST GLUCOSE METER, POINT OF CARE JAY 10/13/2023 4:19 PM EST GLUCOSE METER, POINT OF CARE JAY 10/13/2023 11:20 AM EST CBC Routine 10/13/2023 9:11 AM EST HEPATIC FUNCTION PANEL Routine 9:10 AM EST BASIC METABOLIC PANEL Routine 10/13/2023 9:10 AM EST PHOSPHORUS Routine 10/13/2023 9:10 AM EST MAGNESIUM Routine 10/13/2023 9:10 AM EST GLUCOSE METER, POINT OF CARE JAY 10/13/2023 7:[address] HEAD/BRAIN WO CONTRAST STAT 10/12/2023 9:45 PM EST GLUCOSE METER, POINT OF CARE [facility] 10/12/2023 8:59 PM EST GLUCOSE METER, POINT OF CARE JAY 10/12/2023 4:18 PM EST CBC STAT 10/12/2023 2:37 PM EST GLUCOSE METER, POINT OF CARE JAY 10/12/2023 12:34 PM EST GLUCOSE METER, POINT OF CARE JAY 10/12/2023 10:35 AM EST GLUCOSE METER, POINT OF CARE JAY 10/12/2023 9:53 AM EST SURGICAL PATHOLOGY Routine 10/12/2023 9: 44 AM EST Cholecystitis LAPAROSCOPY; CHOLECYSTECTOMY 10/12/2023 7:43 AM EST Cholecystitis GLUCOSE METER, POINT OF CARE [facility] 10/12/2023 7:06 AM EST TYPE AND SCREEN STAT 10/12/2023 5:17 AM EST HEPATIC FUNCTION PANEL Routine 4:26 AM EST BASIC METABOLIC PANEL Routine 10/12/2023 4:26 AM EST PHOSPHORUS Routine 10/12/2023 4:26 AM EST CBC Routine 10/12/2023 4:26 AM EST MAGNESIUM Routine 10/12/2023 4:26 AM EST GLUCOSE METER, POINT OF CARE JAY 10/11/2023 8:37 PM EST GLUCOSE METER, POINT OF CARE JAY 10/11/2023 4:44 PM EST BASIC METABOLIC PANEL STAT 10/11/2023 3:15 PM EST GLUCOSE METER, POINT OF CARE JAY 10/11/2023 11:27 AM EST GLUCOSE METER, POINT OF CARE JAY 10/11/2023 7:02 AM EST HEPATIC FUNCTION PANEL Routine 6:41 AM EST BASIC METABOLIC PANEL Routine 10/11/2023 6:41 AM EST PHOSPHORUS Routine 10/11/2023 6:41 AM EST CBC Routine 10/11/2023 6:41 AM EST MAGNESIUM Routine 10/11/2023 6:41 AM EST GLUCOSE METER, POINT OF CARE JAY 10/10/2023 8:54 PM EST GLUCOSE METER, POINT OF CARE JAY 10/10/2023 5:13 PM EST NM HEPATOBILIARY SYSTEM Routine 10/10/20 1:51 PM EST HEPATIC FUNCTION PANEL Add-on 7:37 AM EST BASIC METABOLIC PANEL Routine 10/10/2023 7:37 AM EST PHOSPHORUS Routine 10/10/2023 7:37 AM EST LACTATE Routine 10/10/2023 7:37 AM EST CALCIUM, IONIZED Routine 10/10/2023 7:37 AM EST CBC Routine 10/10/2023 7:37 AM EST MAGNESIUM Routine 10/10/2023 7:37 AM EST GLUCOSE METER, POINT OF CARE JAY 10/10/2023 6:16 AM EST US ABDOMEN LIMITED STAT 10/10/2023 12 :20 AM EST GLUCOSE METER, POINT OF CARE JAY 10/09/2023 11:59 PM EST LACTATE Routine 10/09/2023 8:36 PM EST GLUCOSE METER, POINT OF CARE JAY 10/09/2023 6:54 PM EST RADIOLOGY EXAM - CT (IMAGES ONLY, NO REPORT) Routine 10/09/2023 3:37 PM EST RADIOLOGY EXAM - CT (IMAGES ONLY, NO REPORT) Routine 10/09/2023 3:37 PM EST HEMOGLOBIN A1C Routine 10/09/2023 1:46 PM EST HEPATIC FUNCTION PANEL Add-on 1:46 PM EST BASIC METABOLIC PANEL STAT 10/09/2023 1:46 PM EST ABO/RH STAT 10/09/2023 1:46 PM EST TYPE AND SCREEN Routine 10/09/2023 1:46 PM EST PT INR STAT 10/09/2023 1:46 PM EST PHOSPHORUS Routine 10/09/2023 1:46 PM EST LACTATE Routine 10/09/2023 1:46 PM EST CBC STAT 10/09/2023 1:46 PM EST MAGNESIUM Routine 10/09/2023 1:46 PM EST documented in this encounter Results * (ABNORMAL) GLUCOSE METER, POINT OF CARE (10/15/2023 11:35 AM EST) Glucose Meter 166(H) 70 - 120 mg/dL 10/15/2023 11:44 AM EST [facility] Blood Whole blood specimen / Unknown 10/15/2023 11:35 AM EST 10/15/2023 11:44 AM EST Jordan Urrutia MD LAB POINT OF CARE TE ST DOCKED DEVICE UNSOLICITED RESULTS Performing Organization Address City/[facility]/ZIP Co de Phone Number [facility] [address] [place] [address] * NOCTURNAL OXIMETRY (INPATIENT) (10/15/2023 7:43 AM EST) 10/15/2023 7:43 AM EST [facility] * PHOSPHORUS (10/15/2023 7:29 AM EST) Phosphorus 3.0 2.5 - 4.8 mg/dL 10/15/2023 8:20 AM EST [facility] Blood Venous blood specimen / Unknown Venipuncture / Unknown 10/15/2023 7:29 AM EST 10/15/2023 7:37 AM EST Karen Galaviz MD LAB BLOOD ORDERA BLES [facility] [address] [place] [address] * MAGNESIUM (10/15/2023 7:29 AM EST) Magnesium 1.8 1.5 - 2.6 mg/dL 10/15/2023 8:20 AM EST [facility] Blood Venous blood specimen / Unknown Venipuncture / Unknown 10/15/2023 7:29 AM EST 10/15/2023 7:37 AM EST Karen Galaviz MD LAB BLOOD ORDERA BLES Performing Organization Address City/[facility]/ZIP Co de Phone Number [facility] [address] [place] [address] * (ABNORMAL) CBC (10/15/2023 7:29 AM EST) WBC 7.92 4.00 - 10.80 K/uL 10/15/2023 7:54 AM EST [facility] RBC 3.86 4.50 - 5.25 M/uL 10/15/2023 7:54 AM EST [facility] HGB 12.1(L) 14.0 - 16.8 g/dL 10/15/2023 7:54 AM EST [facility] HCT 36.0(L) 40.0 - 48.4 % 10/15/2023 7:54 AM EST [facility] MCV 93.3 82.0 - 99.5 fL 10/15/2023 7:54 AM EST [facility] MCH 31.3 27.0 - 34.0 pg 10/15/2023 7:54 AM EST [facility] MCHC 33.6 32.0 - 36.0 g/dL 10/15/2023 7:54 AM EST [facility] RDW 13.7 11.5 - 15.5 % 10/15/2023 7:54 AM EST [facility] PLT 174 140 - 400 K/uL 10/15/2023 7:54 AM EST [facility] MPV 10.0 6.6 - 11.1 fL 10/15/2023 7:54 AM EST [facility] nRBCs 0 <=0 /100 WBCs 10/15/2023 7:54 AM EST [facility] Blood Venous blood specimen / Unknown Venipuncture / Unknown 10/15/2023 7:29 AM EST 10/15/2023 7:37 AM EST Herber Aviles MD LAB BLOOD OR DERABLES Performing Organization Address City/[facility]/ZIP Co de Phone Number [facility] [address] [place] [address] * (ABNORMAL) BASIC METABOLIC PANEL (10/15/2023 7:29 AM EST) BUN 17 6 - 20 mg/dL 10/15/2023 8:20 AM EST [facility] Creatinine 1.2 0.6 - 1.2 mg/dL 10/15/2023 8:20 AM EST [facility] Estimated Glomerular Filtration Rate 62 >=60 mL/min 10/15/2023 8:20 AM EST [facility] Comment:eGFR is calculated b ased on the CKD-EPI 2020 equation Sodium 139 135 - 146 mmol/L 10/15/2023 8:20 AM EST [facility] Potassium 3.8 3.5 - 5.1 mmol/L 10/15/2023 8:20 AM EST [facility] Chloride 102 98 - 107 mmol/L 10/15/2023 8:20 AM EST [facility] CO2 29 22 - 32 mmol/L 10/15/2023 8:20 AM EST [facility] Anion Gap 8 7 - 15 mmol/L 10/15/2023 8:20 AM EST [facility] Glucose 152(H) 70 - 120 mg/dL 10/15/2023 8:20 AM EST [facility] Calcium 8.6 8.4 - 10.2 mg/dL 10/15/2023 8:20 AM EST [facility] Blood Venous blood specimen / Unknown Venipuncture / Unknown 10/15/2023 7:29 AM EST 10/15/2023 7:37 AM EST Herber Aviles MD LAB BLOOD OR DERABLES Performing Organization Address City/State/[facility] Co de Phone Number [facility] [address] [place] [address] * (ABNORMAL) GLUCOSE METER, POINT OF CARE (10/15/2023 7:04 AM EST) Glucose Meter 125(H) 70 - 120 mg/dL 10/15/2023 7:13 AM EST [employer] Blood Whole blood specimen / Unknown 10/15/2023 7:04 AM EST 10/15/2023 7:13 AM EST Jordan Urrutia MD LAB POINT OF CARE TE ST DOCKED DEVICE UNSOLICITED RESULTS [facility] [address] [place] [address] * (ABNORMAL) GLUCOSE METER, POINT OF CARE (10/14/2023 9:16 PM EST) Glucose Meter 189(H) 70 - 120 mg/dL 10/14/2023 9:21 PM EST [facility] Blood Whole blood specimen / Unknown 10/14/2023 9:16 PM EST 10/14/2023 9:21 PM EST Jordan Urrutia MD LAB POINT OF CARE TE ST DOCKED DEVICE UNSOLICITED RESULTS Performing Organization Address City/[facility]/ZIP Co de Phone Number [facility] [address] [place] [address] * (ABNORMAL) GLUCOSE METER, POINT OF CARE (10/14/2023 4:33 PM EST) Glucose Meter 163(H) 70 - 120 mg/dL 10/14/2023 4:36 PM EST [facility] Blood Whole blood specimen / Unknown 10/14/2023 4:33 PM EST 10/14/2023 4:36 PM EST Jordan Urrutia MD LAB POINT OF CARE TE ST DOCKED DEVICE UNSOLICITED RESULTS Performing Organization Address City/[facility]/ZIP Co de Phone Number [facility] [address] [place] [address] * (ABNORMAL) GLUCOSE METER, POINT OF CARE (10/14/2023 11:05 AM EST) Glucose Meter 190(H) 70 - 120 mg/dL 10/14/2023 12:17 PM EST [employer] Blood Whole blood specimen / Unknown 10/14/2023 11:05 AM EST 10/14/2023 12:17 PM EST Jordan Urrutia MD LAB POINT OF CARE TE ST DOCKED DEVICE UNSOLICITED RESULTS [facility] [address] [place] [address] * (ABNORMAL) PHOSPHORUS (10/14/2023 8:23 AM EST) Phosphorus 2.3(L) 2.5 - 4.8 mg/dL 10/14/2023 9:42 AM EST [facility] Blood Venous blood specimen / Unknown Venipuncture / Unknown 10/14/2023 8:23 AM EST 10/14/2023 9:15 AM EST Karen Galaviz MD LAB BLOOD ORDERA BLES Performing Organization Address [facility] Co de Phone Number [facility] [address] [place] [address] * MAGNESIUM (10/14/2023 8:23 AM EST) Pathologist [facility] Magnesium 2.0 1.5 - 2.6 mg/dL 10/14/2023 9:42 AM EST [facility] Blood Venous blood specimen / Unknown Venipuncture / Unknown 10/14/2023 8:23 AM EST 10/14/2023 9:15 AM EST Karen Galaviz MD LAB BLOOD ORDERA BLES Performing Organization Address [facility]/ZIP Co de Phone Number [facility] [address] [place] [address] * (ABNORMAL) CBC (10/14/2023 8:23 AM EST) WBC 8.97 4.00 - 10.80 K/uL 10/14/2023 9:22 AM EST [facility] RBC 4.01 4.50 - 5.25 M/uL 10/14/2023 9:22 AM EST [facility] HGB 12.4(L) 14.0 - 16.8 g/dL 10/14/2023 9:22 AM EST [facility] HCT 38.6(L) 40.0 - 48.4 % 10/14/2023 9:22 AM EST [facility] MCV 96.3 82.0 - 99.5 fL 10/14/2023 9:22 AM EST [facility] MCH 30.9 27.0 - 34.0 pg 10/14/2023 9:22 AM EST [facility] MCHC 32.1 32.0 - 36.0 g/dL 10/14/2023 9:22 AM EST [facility] RDW 13.9 11.5 - 15.5 % 10/14/2023 9:22 AM EST [facility] PLT 163 140 - 400 K/uL 10/14/2023 9:22 AM EST [facility] MPV 10.1 6.6 - 11.1 fL 10/14/2023 9:22 AM EST [facility] nRBCs 0 <=0 /100 WBCs 10/14/2023 9:22 AM EST [facility] Blood Venous blood specimen / Unknown Venipuncture / Unknown 10/14/2023 8:23 AM EST 10/14/2023 9:15 AM EST Herber Aviles MD LAB BLOOD OR DERABLES [facility] [address] [place] [address] * (ABNORMAL) BASIC METABOLIC PANEL (10/14/2023 8:23 AM EST) BUN 16 6 - 20 mg/dL 10/14/2023 9:42 AM EST [facility] Creatinine 1.1 0.6 - 1.2 mg/dL 10/14/2023 9:42 AM EST [facility] Estimated Glomerular Filtration Rate 66 >=60 mL/min 10/14/2023 9:42 AM EST [facility] Comment:eGFR is calculated b ased on the CKD-EPI 2020 equation Sodium 138 135 - 146 mmol/L 10/14/2023 9:42 AM EST [facility] Potassium 3.4(L) 3.5 - 5.1 mmol/L 10/14/2023 9:42 AM EST [facility] Chloride 102 98 - 107 mmol/L 10/14/2023 9:42 AM EST [facility] CO2 26 22 - 32 mmol/L 10/14/2023 9:42 AM EST [facility] Anion Gap 10 7 - 15 mmol/L 10/14/2023 9:42 AM EST [facility] Glucose 151(H) 70 - 120 mg/dL 10/14/2023 9:42 AM EST [facility] Calcium 8.7 8.4 - 10.2 mg/dL 10/14/2023 9:42 AM EST [facility] Blood Venous blood specimen / Unknown Venipuncture / Unknown 10/14/2023 8:23 AM EST 10/14/2023 9:15 AM EST Herber Aviles MD LAB BLOOD OR DERABLES [facility] [address] [place] [address] * (ABNORMAL) GLUCOSE METER, POINT OF CARE (10/14/2023 7:14 AM EST) Glucose Meter 155(H) 70 - 120 mg/dL 10/14/2023 7:22 AM EST [employer] Blood Whole blood specimen / Unknown 10/14/2023 7:14 AM EST 10/14/2023 7:22 AM EST Jordan Urrutia MD LAB POINT OF CARE TE ST DOCKED DEVICE UNSOLICITED RESULTS Performing Organization Address City/[facility]/ZIP Co de Phone Number [facility] [address] [place] [address] * (ABNORMAL) GLUCOSE METER, POINT OF CARE (10/13/2023 9:50 PM EST) Glucose Meter 181(H) 70 - 120 mg/dL 10/13/2023 9:56 PM EST [employer] Blood Whole blood specimen / Unknown 10/13/2023 9:50 PM EST 10/13/2023 9:56 PM EST Jordan Urrutia MD LAB POINT OF CARE TE ST DOCKED DEVICE UNSOLICITED RESULTS [facility] [address] [place] [address] * (ABNORMAL) GLUCOSE METER, POINT OF CARE (10/13/2023 4:19 PM EST) Glucose Meter 177(H) 70 - 120 mg/dL 10/13/2023 5:00 PM EST [employer] Blood Whole blood specimen / Unknown 10/13/2023 4:19 PM EST 10/13/2023 5:00 PM EST Jordan Urrutia MD LAB POINT OF CARE TE ST DOCKED DEVICE UNSOLICITED RESULTS [facility] [address] [place] [address] * (ABNORMAL) GLUCOSE METER, POINT OF CARE (10/13/2023 11:20 AM EST) Glucose Meter 134(H) 70 - 120 mg/dL 10/13/2023 12:56 PM EST [employer] Blood Whole blood specimen / Unknown 10/13/2023 11:20 AM EST 10/13/2023 12:56 PM EST Jordan Urrutia MD LAB POINT OF CARE TE ST DOCKED DEVICE UNSOLICITED RESULTS [facility] [address] [place] [address] * (ABNORMAL) CBC (10/13/2023 9:11 AM EST) WBC 7.08 4.00 - 10.80 K/uL 10/13/2023 11:06 AM EST [facility] RBC 3.94 4.50 - 5.25 M/uL 10/13/2023 11:06 AM EST [facility] HGB 12.3(L) 14.0 - 16.8 g/dL 10/13/2023 11:06 AM EST [facility] HCT 38.0(L) 40.0 - 48.4 % 10/13/2023 11:06 AM EST [facility] MCV 96.4 82.0 - 99.5 fL 10/13/2023 11:06 AM EST LABORATORY [facility] MCH 31.2 27.0 - 34.0 pg 10/13/2023 11:06 AM EST [facility] MCHC 32.4 32.0 - 36.0 g/dL 10/13/2023 11:06 AM EST [facility] RDW 14.1 11.5 - 15.5 % 10/13/2023 11:06 AM EST [facility] PLT 145 140 - 400 K/uL 10/13/2023 11:06 AM EST [facility] MPV 10.0 6.6 - 11.1 fL 10/13/2023 11:06 AM EST [facility] nRBCs 0 <=0 /100 WBCs 10/13/2023 11:06 AM EST [facility] Blood Venous blood specimen / Unknown Venipuncture / Unknown 10/13/2023 9:11 AM EST 10/13/2023 10:54 AM EST Herber Aviles MD LAB BLOOD OR DERABLES [facility] [address] [place] [address] * PHOSPHORUS (10/13/2023 9:10 AM EST) Phosphorus 2.8 2.5 - 4.8 mg/dL 10/13/2023 11:35 AM EST [facility] Blood Venous blood specimen / Unknown Venipuncture / Unknown 10/13/2023 9:10 AM EST 10/13/2023 10:54 AM EST Karen Galaviz MD LAB BLOOD ORDERA BLES [facility] [address] [place] [address] * MAGNESIUM (10/13/2023 9:10 AM EST) Magnesium 2.1 1.5 - 2.6 mg/dL 10/13/2023 11:35 AM EST [facility] Blood Venous blood specimen / Unknown Venipuncture / Unknown 10/13/2023 9:10 AM EST 10/13/2023 10:54 AM EST Karen Galaviz MD LAB BLOOD ORDERA BLES [facility] [address] [place] [address] * (ABNORMAL) BASIC METABOLIC PANEL (10/13/2023 9:10 AM EST) [facility] BUN 14 6 - 20 mg/dL 10/13/2023 11:35 AM EST [facility] Creatinine 1.1 0.6 - 1.2 mg/dL 10/13/2023 11:35 AM EST [facility] Estimated Glomerular Filtration Rate 70 >=60 mL/min 10/13/2023 11:35 AM EST [facility] Comment:eGFR is calculated b ased on the CKD-EPI 2020 equation Sodium 139 135 - 146 mmol/L 10/13/2023 11:35 AM EST [facility] Potassium 3.5 3.5 - 5.1 mmol/L 10/13/2023 11:35 AM EST [facility] Chloride 102 98 - 107 mmol/L 10/13/2023 11:35 AM EST [facility] CO2 25 22 - 32 mmol/L 10/13/2023 11:35 AM EST [facility] Anion Gap 12 7 - 15 mmol/L 10/13/2023 11:35 AM EST [facility] Glucose 220(H) 70 - 120 mg/dL 10/13/2023 11:35 AM EST [facility] Calcium 8.5 8.4 - 10.2 mg/dL 10/13/2023 11:35 AM EST [facility] Blood Venous blood specimen / Unknown Venipuncture / Unknown 10/13/2023 9:10 AM EST 10/13/2023 10:54 AM EST Herber Aviles MD LAB BLOOD OR DERABLES LAB[facility]ORY [facility] [address] [place] [address] * (ABNORMAL) HEPATIC FUNCTION PANEL (10/13/2023 9:10 AM EST) Albumin 3.3(L) 3.8 - 5.0 g/dL 10/13/2023 11:35 AM EST [facility] AST 48 10 - 50 U/L 10/13/2023 11:35 AM EST [facility] Alkaline Phosphatase 137(H) 35 - 130 U/L 10/13/2023 11:35 AM EST [facility] ALT 91(H) 10 - 50 U/L 10/13/2023 11:35 AM EST [facility] Bilirubin, Total 0.9 <=1.2 mg/dL 10/13/2023 11:35 AM EST [facility] Bilirubin, Direct 0.4(H) 0.0 - 0.3 mg/dL 10/13/2023 11:35 AM EST [facility] Protein 5.7(L) 6.0 - 8.3 g/dL 10/13/2023 11:35 AM EST [facility] Blood Venous blood specimen / Unknown Venipuncture / Unknown 10/13/2023 9:10 AM EST 10/13/2023 10:54 AM EST Ludy Gill MD LAB BLOOD ORDERABLES [facility] [address] [place] [address] * (ABNORMAL) GLUCOSE METER, POINT OF CARE (10/13/2023 7:19 AM EST) Glucose Meter 172(H) 70 - 120 mg/dL 10/13/2023 7:21 AM EST [facility] Blood Whole blood specimen / Unknown 10/13/2023 7:19 AM EST 10/13/2023 7:21 AM EST Jordan Urrutia MD LAB POINT OF CARE TE ST DOCKED DEVICE UNSOLICITED RESULTS [facility] [address] [place] [address] * CT HEAD/BRAIN WO CONTRAST (10/12/2023 9:45 PM EST) Anatomical Region Laterality Modality Head Computed Tomogra phy 10/13/2023 7:40 AM EST Impressions 10/13/2023 7:37 AM EST IMPRESSION: No evidence of acute infarction, intracranial hemorrhage, or calvarial fracture. 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 Narrative 10/13/2023 7:37 AM EST EXAM: CT HEAD WITHOUT CONTRAST - 10/12/2023 9:45 pm HISTORY: Fall with impact to head on Lovenox, rule out bleed TECHNIQUE: CT of the head was performed without intravenous contrast. Multiplanar reformats were generated. COMPARISON: CTA head/neck 11/10/2021 FINDINGS: No evidence of acute infarction or intracranial hemorrhage. 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 Patchy and confluent areas of low attenuation throughout the periventricular, subcortical, and deep white matter which are nonspecific but likely related to chronic microvascular disease. Diffuse parenchymal volume loss with proportionate ventricular and sulcal prominence. No hydrocephalus. No extra-axial fluid collections. Intracranial atherosclerotic calcifications. Mild mucosal thickening scattered throughout the paranasal sinuses and ethmoid air cells. Right mastoid effusion. Bilateral lens replacement. No acute calvarial fracture. Procedure Note Keith Mckay MD - 10/13/2023 EXAM: CT HEAD WITHOUT CONTRAST - 10/12/2023 9:45 pm HISTORY: Fall with impact to head on Lovenox, rule out bleed TECHNIQUE: CT of the head was performed without intravenous contrast. Multiplanarreformats were generated. COMPARISON: CTA head/neck 11/10/2021 FINDINGS: No evidence of acute infarction or intracranial hemorrhage. Chroniclacunar infarction within the right cerebellum. Patchy and confluentareas of low attenuation throughout the periventricular, subcortical, anddeep white matter which are nonspecific but likely related to chronicmicrovascular disease. Diffuse parenchymal volume loss with proportionate ventricular and sulcalprominence. No hydrocephalus. No extra-axial fluid collections.Intracranial atherosclerotic calcifications. Mild mucosal thickening scattered throughout the paranasal sinuses andethmoid air cells. Right mastoid effusion. Bilateral lens replacement.No acute calvarial fracture. IMPRESSION IMPRESSION: No evidence of acute infarction, intracranial hemorrhage, or calvarialfracture. 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 Chronicmicrovascular white matter disease and parenchymal volume loss. Tom Strong MD RAD CT * (ABNORMAL) GLUCOSE METER, POINT OF CARE (10/12/2023 8:59 PM EST) Glucose Meter 218(H) 70 - 120 mg/dL 10/12/2023 9:02 PM EST [facility] Blood Whole blood specimen / Unknown 10/12/2023 8:59 PM EST 10/12/2023 9:02 PM EST Jordan Urrutia MD LAB POINT OF CARE TE ST DOCKED DEVICE UNSOLICITED RESULTS [place] [address] [place] [address] * (ABNORMAL) GLUCOSE METER, POINT OF CARE (10/12/2023 4:18 PM EST) Glucose Meter 156(H) 70 - 120 mg/dL 10/12/2023 4:21 PM EST [facility] Blood Whole blood specimen / Unknown 10/12/2023 4:18 PM EST 10/12/2023 4:21 PM EST Jordan Urrutia MD LAB POINT OF CARE TE ST DOCKED DEVICE UNSOLICITED RESULTS [place] [address] [place] [address] * CBC (10/12/2023 2:37 PM EST) WBC 10.14 4.00 - 10.80 K/uL 10/12/2023 2:55 PM EST [facility] RBC 4.50 4.50 - 5.25 M/uL 10/12/2023 2:55 PM EST [facility] HGB 14.1 14.0 - 16.8 g/dL 10/12/2023 2:55 PM EST [facility] HCT 42.9 40.0 - 48.4 % 10/12/2023 2:55 PM EST [facility] MCV 95.3 82.0 - 99.5 fL 10/12/2023 2:55 PM EST [facility] MCH 31.3 27.0 - 34.0 pg 10/12/2023 2:55 PM EST [facility] MCHC 32.9 32.0 - 36.0 g/dL 10/12/2023 2:55 PM EST [facility] RDW 14.1 11.5 - 15.5 % 10/12/2023 2:55 PM EST [facility] PLT 200 140 - 400 K/uL 10/12/2023 2:55 PM EST [facility] MPV 9.6 6.6 - 11.1 fL 10/12/2023 2:55 PM EST [facility] nRBCs 0 <=0 /100 WBCs 10/12/2023 2:55 PM EST [facility] Blood Venous blood specimen / Unknown Venipuncture / Unknown 10/12/2023 2:37 PM EST 10/12/2023 2:47 PM EST Catalina Colmenares MD LAB BLOOD ORDE KAIN [facility] [address] [place] [address] * (ABNORMAL) GLUCOSE METER, POINT OF CARE (10/12/2023 12:34 PM EST) Glucose Meter 167(H) 70 - 120 mg/dL 10/12/2023 12:39 PM EST [facility] Blood Whole blood specimen / Unknown 10/12/2023 12:34 PM EST 10/12/2023 12:39 PM EST Jordan Urrutia MD LAB POINT OF CARE TE ST DOCKED DEVICE UNSOLICITED RESULTS [facility] [address] [place] [address] * (ABNORMAL) GLUCOSE METER, POINT OF CARE (10/12/2023 10:35 AM EST) Glucose Meter 180(H) 70 - 120 mg/dL 10/12/2023 11:28 AM EST [facility] Blood Whole blood specimen / Unknown 10/12/2023 10:35 AM EST 10/12/2023 11:28 AM EST Jordan Urrutia MD LAB POINT OF CARE TE ST DOCKED DEVICE UNSOLICITED RESULTS [facility] [address] [place] [address] * (ABNORMAL) GLUCOSE METER, POINT OF CARE (10/12/2023 9:53 AM EST) Glucose Meter 223(H) 70 - 120 mg/dL 10/12/2023 9:55 AM EST [facility] Blood Whole blood specimen / Unknown 10/12/2023 9:53 AM EST 10/12/2023 9:55 AM EST Jordan Urrutia MD LAB POINT OF CARE TE ST DOCKED DEVICE UNSOLICITED RESULTS [facility] [address] [place] [address] * SURGICAL PATHOLOGY (10/12/2023 9:44 AM EST) Final Diagnosis A. Gallbladder, cholecystectomy: Chronic calculous cholecystitis. 10/14/2023 1:35 PM EST LAB[facility]ATORY [facility] Gross Description A. Gallbladder. Received fresh with a container labeled with "Angel Nick", "[id number]", "[id number]" and " gallbladder". Length: 7.0 cm Diameter: 3.1 cm at the fundus. Lymph node: No lymph node is grossly identified Serosal surface: Monroe-pink to yellow and smooth with a roughened adventitial surface. There is an area of full-thickness disruption near the stapled margin that measures 1.6 cm in greatest dimension Wall thickness: 0.2 cm in average thickness There is no gross mass lesion Mucosa: Monroe-pink and velvety Stones: There are two brown-black, roughened, and friable calculi that measure 0.6 x 0.4 x 0.4 cm in aggregate Hand Button Splitter sections are submitted in cassette: A1 Gross By: NS 10/14/2023 1:35 PM EST [facility] Sign Out Location Pathologist sign out performed at [facility] ([facility] [place] [address]. 10/14/2023 1:35 PM EST [facility] Photographic images and diagrams represent ceja findings in this case; they are not intended to replace a complete review of the final diagnostic report. The following statement applies to Flow Cytometry, Histology, In situ Hybridization Assays and Molecular Genetics. This test was developed and performed at [facility] and its performance characteristics [facility]. It has not been cleared or approved by the [place] Food and Drug Administration. The FDA has determined that such clearance or approval is not necessary. This test is used for clinical purposes. It should not be regarded as investigational or for research. Special stains, including histochemical stains, and studies using immunologic and SUZANNE methodology (where applicable) are performed with appropriate positive and negative control reactions. 10/14/2023 1:35 PM EST [facility] Tissue Specimen from gallbladder / Unknown 10/12/2023 9:44 AM EST 10/12/2023 11:44 AM EST Jhony Waddell MD LAB PATHOLOGY OR DERABLES LABORATORY [place] [address] [place] [address] * (ABNORMAL) GLUCOSE METER, POINT OF CARE (10/12/2023 7:06 AM EST) Glucose Meter 131(H) 70 - 120 mg/dL 10/12/2023 7:08 AM EST [facility] [employer] [facility] Blood Whole blood specimen / Unknown 10/12/2023 7:06 AM EST 10/12/2023 7:08 AM EST Jordan Urrutia MD LAB POINT OF CARE TE ST DOCKED DEVICE UNSOLICITED RESULTS Performing Organization Address City/[facility]/ZIP Co de Phone Number [facility] [address] [place] [address] * TYPE AND SCREEN (10/12/2023 5:17 AM EST) ABO O 10/12/2023 6:59 AM EST [facility] Rh Positive 10/12/2023 6:59 AM EST [facility] Red Blood Cell Antibody Screen Negative 10/12/2023 6:59 AM EST [facility] Specimen Expiration Date 10/15/2023 23:59 10/12/2023 6:59 AM EST [facility] Blood Venous blood specimen / Unknown Venipuncture / Unknown 10/12/2023 5:17 AM EST 10/12/2023 5:52 AM EST Catalina Colmenares MD LAB BLOOD BANK TEST ORDERABLES Performing Organization Address [facility] Co de Phone Number [facility] [address] [place] [address] * PHOSPHORUS (10/12/2023 4:26 AM EST) Phosphorus 3.1 2.5 - 4.8 mg/dL 10/12/2023 5:00 AM EST [facility] Blood Venous blood specimen / Unknown Venipuncture / Unknown 10/12/2023 4:26 AM EST 10/12/2023 4:31 AM EST Karen Galaviz MD LAB BLOOD ORDERA BLES Performing Organization Address City/[facility] Co de Phone Number [facility] [address] [place] [address] * MAGNESIUM (10/12/2023 4:26 AM EST) Magnesium 2.1 1.5 - 2.6 mg/dL 10/12/2023 5:00 AM EST [facility] Blood Venous blood specimen / Unknown Venipuncture / Unknown 10/12/2023 4:26 AM EST 10/12/2023 4:31 AM EST Karen Galaviz MD LAB BLOOD ORDERA BLES Performing Organization Address City/[facility]/ZIP Co de Phone Number [facility] [address] [place] [address] * (ABNORMAL) CBC (10/12/2023 4:26 AM EST) WBC 5.53 4.00 - 10.80 K/uL 10/12/2023 4:41 AM EST [facility] RBC 3.92 4.50 - 5.25 M/uL 10/12/2023 4:41 AM EST [facility] HGB 12.2(L) 14.0 - 16.8 g/dL 10/12/2023 4:41 AM EST [facility] HCT 37.3(L) 40.0 - 48.4 % 10/12/2023 4:41 AM EST [facility] MCV 95.2 82.0 - 99.5 fL 10/12/2023 4:41 AM EST [facility] MCH 31.1 27.0 - 34.0 pg 10/12/2023 4:41 AM EST [facility] MCHC 32.7 32.0 - 36.0 g/dL 10/12/2023 4:41 AM EST [facility] RDW 13.7 11.5 - 15.5 % 10/12/2023 4:41 AM EST [facility] PLT 154 140 - 400 K/uL 10/12/2023 4:41 AM EST [facility] MPV 9.7 6.6 - 11.1 fL 10/12/2023 4:41 AM EST [facility] nRBCs 0 <=0 /100 WBCs 10/12/2023 4:41 AM EST [facility] Blood Venous blood specimen / Unknown Venipuncture / Unknown 10/12/2023 4:26 AM EST 10/12/2023 4:31 AM EST Herber Aviles MD LAB BLOOD OR DERABLES LABORATORY [facility] [address] [place] [address] * (ABNORMAL) BASIC METABOLIC PANEL (10/12/2023 4:26 AM EST) BUN 25(H) 6 - 20 mg/dL 10/12/2023 5:00 AM EST [facility] Creatinine 1.2 0.6 - 1.2 mg/dL 10/12/2023 5:00 AM EST [facility] Estimated Glomerular Filtration Rate 58(L) >=60 mL/min 10/12/2023 5:00 AM EST [facility] Comment:eGFR is calculated b ased on the CKD-EPI 2020 equation Sodium 141 135 - 146 mmol/L 10/12/2023 5:00 AM EST [facility] Potassium 4.0 3.5 - 5.1 mmol/L 10/12/2023 5:00 AM EST [facility] Chloride 106 98 - 107 mmol/L 10/12/2023 5:00 AM EST [facility] CO2 26 22 - 32 mmol/L 10/12/2023 5:00 AM EST [facility] Anion Gap 9 7 - 15 mmol/L 10/12/2023 5:00 AM EST [facility] Glucose 136(H) 70 - 120 mg/dL 10/12/2023 5:00 AM EST [facility] Calcium 8.6 8.4 - 10.2 mg/dL 10/12/2023 5:00 AM EST [facility] Blood Venous blood specimen / Unknown Venipuncture / Unknown 10/12/2023 4:26 AM EST 10/12/2023 4:31 AM EST Herber Aviles MD LAB BLOOD OR DERABLES Performing Organization Address City/State/[facility] Co de Phone Number [facility] [address] [place] [address] * (ABNORMAL) HEPATIC FUNCTION PANEL (10/12/2023 4:26 AM EST) Albumin 3.3(L) 3.8 - 5.0 g/dL 10/12/2023 5:00 AM EST [facility] AST 40 10 - 50 U/L 10/12/2023 5:00 AM EST [facility] Alkaline Phosphatase 130 35 - 130 U/L 10/12/2023 5:00 AM EST [facility] ALT 99(H) 10 - 50 U/L 10/12/2023 5:00 AM EST [facility] Bilirubin, Total 0.9 <=1.2 mg/dL 10/12/2023 5:00 AM EST [facility] Bilirubin, Direct 0.5(H) 0.0 - 0.3 mg/dL 10/12/2023 5:00 AM EST [facility] Protein 5.6(L) 6.0 - 8.3 g/dL 10/12/2023 5:00 AM EST [facility] Blood Venous blood specimen / Unknown Venipuncture / Unknown 10/12/2023 4:26 AM EST 10/12/2023 4:31 AM EST Ludy Gill MD LAB BLOOD ORDERABLES LABORATORY [facility] [address] [place] [address] * (ABNORMAL) GLUCOSE METER, POINT OF CARE (10/11/2023 8:37 PM EST) Glucose Meter 161(H) 70 - 120 mg/dL 10/11/2023 8:44 PM EST [employer] Blood Whole blood specimen / Unknown 10/11/2023 8:37 PM EST 10/11/2023 8:44 PM EST Jordan Urrutia MD LAB POINT OF CARE TE ST DOCKED DEVICE UNSOLICITED RESULTS Performing Organization Address City/[facility]/ZIP Co de Phone Number [facility] [address] [place] [address] * (ABNORMAL) GLUCOSE METER, POINT OF CARE (10/11/2023 4:44 PM EST) Glucose Meter 140(H) 70 - 120 mg/dL 10/11/2023 6:18 PM EST [employer] Blood Whole blood specimen / Unknown 10/11/2023 4:44 PM EST 10/11/2023 6:18 PM EST Jordan Urrutia MD LAB POINT OF CARE TE ST DOCKED DEVICE UNSOLICITED RESULTS [facility] [address] [place] [address] * (ABNORMAL) BASIC METABOLIC PANEL (10/11/2023 3:15 PM EST) BUN 26(H) 6 - 20 mg/dL 10/11/2023 3:49 PM EST [facility] Creatinine 1.2 0.6 - 1.2 mg/dL 10/11/2023 3:49 PM EST [facility] Estimated Glomerular Filtration Rate 61 >=60 mL/min 10/11/2023 3:49 PM EST [facility] Comment:eGFR is calculated b ased on the CKD-EPI 2020 equation Sodium 136 135 - 146 mmol/L 10/11/2023 3:49 PM EST [facility] Potassium 3.6 3.5 - 5.1 mmol/L 10/11/2023 3:49 PM EST [facility] Chloride 102 98 - 107 mmol/L 10/11/2023 3:49 PM EST [facility] CO2 24 22 - 32 mmol/L 10/11/2023 3:49 PM EST [facility] Anion Gap 10 7 - 15 mmol/L 10/11/2023 3:49 PM EST [facility] Glucose 203(H) 70 - 120 mg/dL 10/11/2023 3:49 PM EST [facility] Calcium 8.9 8.4 - 10.2 mg/dL 10/11/2023 3:49 PM EST [facility] Blood Venous blood specimen / Unknown Venipuncture / Unknown 10/11/2023 3:15 PM EST 10/11/2023 3:20 PM EST Catalina Colmenares MD LAB BLOOD [facility]ER[facility] Organization Address City/State/ZIP Co de Phone Number [facility] [address] [place] [address] * (ABNORMAL) GLUCOSE METER, POINT OF CARE (10/11/2023 11:27 AM EST) Glucose Meter 145(H) 70 - 120 mg/dL 10/11/2023 12:00 PM EST [facility] Blood Whole blood specimen / Unknown 10/11/2023 11:27 AM EST 10/11/2023 12:00 PM EST Jordan Urrutia MD LAB POINT OF CARE TE ST DOCKED DEVICE UNSOLICITED RESULTS Performing Organization Address City/[facility]/ZIP Co de Phone Number [facility] [address] [place] [address] * GLUCOSE METER, POINT OF CARE (10/11/2023 7:02 AM EST) Glucose Meter 110 70 - 120 mg/dL 10/11/2023 7:10 AM EST [facility] Blood Whole blood specimen / Unknown 10/11/2023 7:02 AM EST 10/11/2023 7:10 AM EST Jordan Urrutia MD LAB POINT OF CARE TE ST DOCKED DEVICE UNSOLICITED RESULTS Performing Organization Address [facility] de Phone Number [facility] [address] [place] [address] * PHOSPHORUS (10/11/2023 6:41 AM EST) Phosphorus 2.8 2.5 - 4.8 mg/dL 10/11/2023 7:44 AM EST [facility] Blood Venous blood specimen / Unknown Venipuncture / Unknown 10/11/2023 6:41 AM EST 10/11/2023 7:14 AM EST Karen Galaviz MD LAB BLOOD ORDERA BLES [facility] [address] [place] [address] * MAGNESIUM (10/11/2023 6:41 AM EST) Magnesium 2.6 1.5 - 2.6 mg/dL 10/11/2023 7:44 AM EST [facility] Blood Venous blood specimen / Unknown Venipuncture / Unknown 10/11/2023 6:41 AM EST 10/11/2023 7:14 AM EST Karen Galaviz MD LAB BLOOD ORDERA BLES Performing Organization Address City/[facility]/ZIP Co de Phone Number [facility] [address] [place] [address] * (ABNORMAL) CBC (10/11/2023 6:41 AM EST) WBC 7.08 4.00 - 10.80 K/uL 10/11/2023 7:23 AM EST [facility] RBC 3.87 4.50 - 5.25 M/uL 10/11/2023 7:23 AM EST [facility] HGB 12.2(L) 14.0 - 16.8 g/dL 10/11/2023 7:23 AM EST [facility] HCT 36.2(L) 40.0 - 48.4 % 10/11/2023 7:23 AM EST [facility] MCV 93.5 82.0 - 99.5 fL 10/11/2023 7:23 AM EST [facility] MCH 31.5 27.0 - 34.0 pg 10/11/2023 7:23 AM EST [facility] MCHC 33.7 32.0 - 36.0 g/dL 10/11/2023 7:23 AM EST [facility] RDW 13.9 11.5 - 15.5 % 10/11/2023 7:23 AM EST [facility] PLT 155 140 - 400 K/uL 10/11/2023 7:23 AM EST [facility] MPV 10.0 6.6 - 11.1 fL 10/11/2023 7:23 AM EST [facility] nRBCs 0 <=0 /100 WBCs 10/11/2023 7:23 AM EST [facility] Blood Venous blood specimen / Unknown Venipuncture / Unknown 10/11/2023 6:41 AM EST 10/11/2023 7:14 AM EST Herber Aviles MD LAB BLOOD OR DERABLES LAB[facility]ATORY [facility] [address] [place] [address] * (ABNORMAL) BASIC METABOLIC PANEL (10/11/2023 6:41 AM EST) BUN 26(H) 6 - 20 mg/dL 10/11/2023 7:44 AM EST [facility] Creatinine 1.4(H) 0.6 - 1.2 mg/dL 10/11/2023 7:44 AM EST LABORATORY [facility] Estimated Glomerular Filtration Rate 52(L) >=60 mL/min 10/11/2023 7:44 AM EST [facility] Comment:eGFR is calculated b ased on the CKD-EPI 2020 equation Sodium 139 135 - 146 mmol/L 10/11/2023 7:44 AM EST [facility] Potassium 4.1 3.5 - 5.1 mmol/L 10/11/2023 7:44 AM EST [facility] Chloride 104 98 - 107 mmol/L 10/11/2023 7:44 AM EST LABORATORY C CO2 26 22 - 32 mmol/L 10/11/2023 7:44 AM EST LABORATORY C Anion Gap 9 7 - 15 mmol/L 10/11/2023 7:44 AM EST LABORATORY C Glucose 118 70 - 120 mg/dL 10/11/2023 7:44 AM EST LABORATORY C Calcium 8.5 8.4 - 10.2 mg/dL 10/11/2023 7:44 AM EST [facility] Blood Venous blood specimen / Unknown Venipuncture / Unknown 10/11/2023 6:41 AM EST 10/11/2023 7:14 AM EST Herber Aviles MD LAB BLOOD OR DERABLES Performing Organization Address City/State/[facility] Co de Phone Number [facility] [address] [place] [address] * (ABNORMAL) HEPATIC FUNCTION PANEL (10/11/2023 6:41 AM EST) Albumin 3.3(L) 3.8 - 5.0 g/dL 10/11/2023 7:44 AM EST LABORATORY [facility] AST 55(H) 10 - 50 U/L 10/11/2023 7:44 AM EST [facility] Alkaline Phosphatase 101 35 - 130 U/L 10/11/2023 7:44 AM EST LAB[facility]ATORY [facility] ALT 129(H) 10 - 50 U/L 10/11/2023 7:44 AM EST [facility] Bilirubin, Total 1.0 <=1.2 mg/dL 10/11/2023 7:44 AM EST [facility] Bilirubin, Direct 0.7(H) 0.0 - 0.3 mg/dL 10/11/2023 7:44 AM EST [facility] Protein 5.3(L) 6.0 - 8.3 g/dL 10/11/2023 7:44 AM EST [facility] Blood Venous blood specimen / Unknown Venipuncture / Unknown 10/11/2023 6:41 AM EST 10/11/2023 7:14 AM EST Ludy Gill MD LAB BLOOD ORDERABLES [facility] [address] [place] [address] * (ABNORMAL) GLUCOSE METER, POINT OF CARE (10/10/2023 8:54 PM EST) Glucose Meter 129(H) 70 - 120 mg/dL 10/10/2023 9:03 PM EST [employer] Blood Whole blood specimen / Unknown 10/10/2023 8:54 PM EST 10/10/2023 9:03 PM EST Jordan Urrutia MD LAB POINT OF CARE TE ST DOCKED DEVICE UNSOLICITED RESULTS Performing Organization Address City/[facility]/ZIP Co de Phone Number [facility] [address] [place] [address] * GLUCOSE METER, POINT OF CARE (10/10/2023 5:13 PM EST) Glucose Meter 94 70 - 120 mg/dL 10/10/2023 5:18 PM EST [employer] Blood Whole blood specimen / Unknown 10/10/2023 5:13 PM EST 10/10/2023 5:18 PM EST Jordan Urrutia MD LAB POINT OF CARE TE ST DOCKED DEVICE UNSOLICITED RESULTS [facility] [address] [place] [address] * NM HEPATOBILIARY SYSTEM (10/10/2023 1:51 PM EST) Anatomical Region Laterality Modality Abdomen Nuclear Medicine 10/10/2023 2:13 PM EST Impressions 10/11/2023 7:14 AM EST IMPRESSION Patent cystic and common bile ducts. No scintigraphic evidence of acute cholecystitis. I have personally reviewed this examination and agree with the resident/fellow physician's interpretation. Narrative 10/11/2023 7:14 AM EST EXAM NM HEPATOBILIARY SYSTEM - 10/10/2023 1:51 pm HISTORY equivocal ultrasound for acute cholecystitis COMPARISON None. TECHNIQUE Following the intravenous administration of 6.9 mCi of Tc-99m mebrofenin (Choletec), dynamic imaging of the right upper quadrant was performed in the anterior projection. FINDINGS Prompt uptake of radiotracer seen throughout the hepatic parenchyma. The central biliary ducts and the common bile duct are visualized. Small bowel activity is seen at 16-20 minutes, and the gallbladder begins to fill at 78 minutes. Delayed imaging obtained at 135 minutes demonstrates further filling-in of the gallbladder. Procedure Note Odell Corrigan MD - 10/11/2023 EXAM NM HEPATOBILIARY SYSTEM - 10/10/2023 1:51 pm HISTORY equivocal ultrasound for acute cholecystitis COMPARISON None. TECHNIQUE Following the intravenous administration of 6.9 mCi of Tc-99m mebrofenin(Choletec), dynamic imaging of the right upper quadrant was performed inthe anterior projection. FINDINGS Prompt uptake of radiotracer seen throughout the hepatic parenchyma. Thecentral biliary ducts and the common bile duct are visualized. Smallbowel activity is seen at 16-20 minutes, and the gallbladder begins tofill at 78 minutes. Delayed imaging obtained at 135 minutes demonstratesfurther filling-in of the gallbladder. IMPRESSION IMPRESSION Patent cystic and common bile ducts. No scintigraphic evidence of acutecholecystitis. I have personally reviewed this examination and agree with the resident/fellow physician's interpretation. Nataliia Mclain MD [facility] NUCLEAR MED * (ABNORMAL) HEPATIC FUNCTION PANEL (10/10/2023 7:37 AM EST) Albumin 3.1(L) 3.8 - 5.0 g/dL 10/10/2023 11:11 AM EST [facility] AST 161(H) 10 - 50 U/L 10/10/2023 11:11 AM EST [facility] Alkaline Phosphatase 97 35 - 130 U/L 10/10/2023 11:11 AM EST [facility] ALT 197(H) 10 - 50 U/L 10/10/2023 11:11 AM EST [facility] Bilirubin, Total 1.8(H) <=1.2 mg/dL 10/10/2023 11:11 AM EST [facility] Bilirubin, Direct 1.4(H) 0.0 - 0.3 mg/dL 10/10/2023 11:11 AM EST [facility] Protein 5.5(L) 6.0 - 8.3 g/dL 10/10/2023 11:11 AM EST [facility] Blood Venous blood specimen / Unknown Venipuncture / Unknown 10/10/2023 7:37 AM EST 10/10/2023 7:51 AM EST Ludy Gill MD LAB BLOOD [place] [address] * PHOSPHORUS (10/10/2023 7:37 AM EST) Phosphorus 2.7 2.5 - 4.8 mg/dL 10/10/2023 8:18 AM EST LABORATORY [facility] Blood Venous blood specimen / Unknown Venipuncture / Unknown 10/10/2023 7:37 AM EST 10/10/2023 7:51 AM EST Karen Galaviz MD LAB BLOOD ORDERA BLES [facility] [address] [place] [address] * MAGNESIUM (10/10/2023 7:37 AM EST) Magnesium 2.6 1.5 - 2.6 mg/dL 10/10/2023 8:18 AM EST [facility] Blood Venous blood specimen / Unknown Venipuncture / Unknown 10/10/2023 7:37 AM EST 10/10/2023 7:51 AM EST Karen Galaviz MD LAB BLOOD ORDERA BLES [facility] [address] [place] [address] * (ABNORMAL) CBC (10/10/2023 7:37 AM EST) WBC 7.24 4.00 - 10.80 K/uL 10/10/2023 8:31 AM EST [facility] RBC 3.85 4.50 - 5.25 M/uL 10/10/2023 8:31 AM EST [facility] HGB 11.9(L) 14.0 - 16.8 g/dL 10/10/2023 8:31 AM EST [facility] HCT 35.8(L) 40.0 - 48.4 % 10/10/2023 8:31 AM EST [facility] MCV 93.0 82.0 - 99.5 fL 10/10/2023 8:31 AM EST [facility] MCH 30.9 27.0 - 34.0 pg 10/10/2023 8:31 AM EST [facility] MCHC 33.2 32.0 - 36.0 g/dL 10/10/2023 8:31 AM EST [facility] RDW 13.9 11.5 - 15.5 % 10/10/2023 8:31 AM EST [facility] PLT 140 140 - 400 K/uL 10/10/2023 8:31 AM EST [facility] MPV 10.4 6.6 - 11.1 fL 10/10/2023 8:31 AM EST [facility] nRBCs 0 <=0 /100 WBCs 10/10/2023 8:31 AM EST [facility] Blood Venous blood specimen / Unknown Venipuncture / Unknown 10/10/2023 7:37 AM EST 10/10/2023 7:51 AM EST Herber Aviles MD LAB BLOOD OR DERABLES LAB[facility] [address] [place] [address] * (ABNORMAL) BASIC METABOLIC PANEL (10/10/2023 7:37 AM EST) BUN 23(H) 6 - 20 mg/dL 10/10/2023 8:18 AM EST [facility] Creatinine 1.3(H) 0.6 - 1.2 mg/dL 10/10/2023 8:18 AM EST [facility] Estimated Glomerular Filtration Rate 55(L) >=60 mL/min 10/10/2023 8:18 AM EST [facility] Comment:eGFR is calculated b ased on the CKD-EPI 2020 equation Sodium 137 135 - 146 mmol/L 10/10/2023 8:18 AM EST [facility] Potassium 3.7 3.5 - 5.1 mmol/L 10/10/2023 8:18 AM EST [facility] Chloride 103 98 - 107 mmol/L 10/10/2023 8:18 AM EST [facility] CO2 24 22 - 32 mmol/L 10/10/2023 8:18 AM EST [facility] Anion Gap 10 7 - 15 mmol/L 10/10/2023 8:18 AM EST [facility] Glucose 134(H) 70 - 120 mg/dL 10/10/2023 8:18 AM EST [facility] Calcium 8.2(L) 8.4 - 10.2 mg/dL 10/10/2023 8:18 AM EST [facility] Blood Venous blood specimen / Unknown Venipuncture / Unknown 10/10/2023 7:37 AM EST 10/10/2023 7:51 AM EST Herber Aviles MD LAB BLOOD OR DERABLES LAB[facility] [address] [place] [address] * LACTATE (10/10/2023 7:37 AM EST) Lactate 1.4 0.4 - 2.0 mmol/L 10/10/2023 8:14 AM EST [facility] Blood Venous blood specimen / Unknown Venipuncture / Unknown 10/10/2023 7:37 AM EST 10/10/2023 7:51 AM EST Karen Galaviz MD LAB BLOOD ORDERA BLES LAB[facility] [address] [place] [address] * CALCIUM, IONIZED (10/10/2023 7:37 AM EST) Calcium, Ionized 1.14 1.13 - 1.32 mmol/L 10/10/2023 8:07 AM EST [facility] Comment:This test was develo ped and its performance characteristics dtermined by [employer]. It has not been cleared or approved by the [place] Food and Drug Administration Blood Venous blood specimen / Unknown Venipuncture / Unknown 10/10/2023 7:37 AM EST 10/10/2023 7:43 AM EST Herber Aviles MD LAB BLOOD OR DERABLES Performing Organization Address City/[facility]/ZIP Co de Phone Number LAB[facility]ORY [facility] [address] [place] [address] * (ABNORMAL) GLUCOSE METER, POINT OF CARE (10/10/2023 6:16 AM EST) Glucose Meter 129(H) 70 - 120 mg/dL 10/10/2023 6:21 AM EST [employer] Blood Whole blood specimen / Unknown 10/10/2023 6:16 AM EST 10/10/2023 6:21 AM EST Jordan Urrutia MD LAB POINT OF CARE TE ST DOCKED DEVICE UNSOLICITED RESULTS Performing Organization Address City/[facility]/ZIP Co de Phone Number [facility] [address] [place] [address] * US ABDOMEN LIMITED (10/10/2023 12:20 AM EST) Anatomical Region Laterality Modality Abdomen, Body Ultrasound 10/10/2023 3:20 AM EST Impressions 10/10/2023 3:18 AM EST IMPRESSION Cholelithiasis and gallbladder sludge. Otherwise, sonographic evidence of acute cholecystitis. Narrative 10/10/2023 3:18 AM EST EXAM US ABDOMEN LIMITED-10/10/2023 12:20 am HISTORY Evaluate for cholecystitis. TECHNIQUE Sonogram of the right upper quadrant. COMPARISON CT abdomen/pelvis 10/08/2023 FINDINGS LIVER: Normal echogenicity. No focal lesion. BILE DUCTS: No intrahepatic or extrahepatic duct dilatation. The common bile duct measures 3 mm. GALLBLADDER: Gallstones and sludge. No gallbladder wall thickening, or pericholecystic fluid. Negative sonographic Kapoor's sign. PANCREAS: Visualized portions are unremarkable. RIGHT KIDNEY: 12.6 cm in length. 2.3 x 2.6 x 2.4 cm lower pole simple cyst. No hydronephrosis, or shadowing calculi. OTHER: No ascites. Procedure Note Pratik Licona MD - 10/10/2023 EXAM US ABDOMEN LIMITED-10/10/2023 12:20 am HISTORY Evaluate for cholecystitis. TECHNIQUE Sonogram of the right upper quadrant. COMPARISON CT abdomen/pelvis 10/08/2023 FINDINGS LIVER: Normal echogenicity. No focal lesion. BILE DUCTS: No intrahepatic or extrahepatic duct dilatation. The commonbile duct measures 3 mm. GALLBLADDER: Gallstones and sludge. No gallbladder wall thickening, orpericholecystic fluid. Negative sonographic Kapoor's sign. PANCREAS: Visualized portions are unremarkable. RIGHT KIDNEY: 12.6 cm in length. 2.3 x 2.6 x 2.4 cm lower pole simplecyst. No hydronephrosis, or shadowing calculi. OTHER: No ascites. IMPRESSION IMPRESSION Cholelithiasis and gallbladder sludge. Otherwise, sonographic evidence ofacute cholecystitis. Ludy Gill MD RAD ULTRASOUND * (ABNORMAL) GLUCOSE METER, POINT OF CARE (10/09/2023 11:59 PM EST) Glucose Meter 128(H) 70 - 120 mg/dL 10/10/2023 12:08 AM EST [employer] Blood Whole blood specimen / Unknown 10/09/2023 11:59 PM EST 10/10/2023 12:08 AM EST Jordan Urrutia MD LAB POINT OF CARE TE ST DOCKED DEVICE UNSOLICITED RESULTS Performing Organization Address City/[facility]/ZIP Co de Phone Number [facility] [address] [place] [address] * LACTATE (10/09/2023 8:36 PM EST) Lactate 2.0 0.4 - 2.0 mmol/L 10/09/2023 8:55 PM EST [facility] Blood Venous blood specimen / Unknown Venipuncture / Unknown 10/09/2023 8:36 PM EST 10/09/2023 8:40 PM EST Ludy Gill MD LAB BLOOD ORDERABLES Performing Organization Address City/[facility]/ZIP Co de Phone Number [facility] [address] [place] [address] * (ABNORMAL) GLUCOSE METER, POINT OF CARE (10/09/2023 6:54 PM EST) Glucose Meter 123(H) 70 - 120 mg/dL 10/09/2023 6:56 PM EST [employer] Blood Whole blood specimen / Unknown 10/09/2023 6:54 PM EST 10/09/2023 6:56 PM EST Jordan Urrutia MD LAB POINT OF CARE TE ST DOCKED DEVICE UNSOLICITED RESULTS Performing Organization Address City/[facility]/ZIP Co de Phone Number [facility] [address] [place] [address] * RADIOLOGY EXAM - CT (IMAGES ONLY, NO REPORT) (10/09/2023 3:37 PM EST) Narrative Scheduling, Silent - 10/09/2023 3:37 PM EST This is an imaging study not interpreted or resulted by a [facility] or [facility] contracted radiologist. Jordan Urrutia MD RAD CT * RADIOLOGY EXAM - CT (IMAGES ONLY, NO REPORT) (10/09/2023 3:37 PM EST) Narrative Scheduling, Silent - 10/09/2023 3:37 PM EST This is an imaging study not interpreted or resulted by a [facility] or [facility] contracted radiologist. Jordan Urrutia MD RAD CT * (ABNORMAL) HEPATIC FUNCTION PANEL (10/09/2023 1:46 PM EST) Albumin 3.2(L) 3.8 - 5.0 g/dL 10/09/2023 3:50 PM EST [facility] AST 279(H) 10 - 50 U/L 10/09/2023 3:50 PM EST [facility] Alkaline Phosphatase 99 35 - 130 U/L 10/09/2023 3:50 PM EST [facility] ALT 228(H) 10 - 50 U/L 10/09/2023 3:50 PM EST [facility] Bilirubin, Total 3.1(H) <=1.2 mg/dL 10/09/2023 3:50 PM EST [facility] Bilirubin, Direct 2.8(H) 0.0 - 0.3 mg/dL 10/09/2023 3:50 PM EST [facility] Protein 5.6(L) 6.0 - 8.3 g/dL 10/09/2023 3:50 PM EST [facility] Blood Venous blood specimen / Unknown Venipuncture / Unknown 10/09/2023 1:46 PM EST 10/09/2023 1:53 PM EST Ludy Gill MD LAB BLOOD ORDERABLES [facility] [place] [address] [place] [address] * ABO/RH (10/09/2023 1:46 PM EST) ABO O 10/09/2023 3:23 PM EST [facility] [place] [facility] Rh Positive 10/09/2023 3:23 PM EST [facility] [place] B[facility]OD [facility] Blood Venous blood specimen / Unknown Venipuncture / Unknown 10/09/2023 1:46 PM EST 10/09/2023 1:52 PM EST Herber Aviles MD LAB BLOOD BA NK TEST ORDERABLES Performing Organization Address [facility]/ZIP Co de Phone Number [facility] [place] [address] [place] [address] * (ABNORMAL) HEMOGLOBIN A1C (10/09/2023 1:46 PM EST) Hemoglobin A1C 6.7(H) 4.0 - 5.6 % 10/09/2023 2:09 PM EST [facility] Comment:The use of HbA1c to monitor glycemic status is based on normal hemoglobin and HbA composition. This test should not be used in patients with abnormal hemoglobin that affects the half life of the red blood cell or the in vivo glycation rates. Estimated Average Glucose 146(H) <126 mg/dL 10/09/2023 2:09 PM EST [facility] Blood Venous blood specimen / Unknown Venipuncture / Unknown 10/09/2023 1:46 PM EST 10/09/2023 1:53 PM EST Karen Galaviz MD LAB BLOOD ORDERA BLES Performing Organization Address [facility] Co de Phone Number LABORATORY [place] [address] [place] [address] * TYPE AND SCREEN (10/09/2023 1:46 PM EST) ABO O 10/09/2023 2:49 PM EST [facility] Rh Positive 10/09/2023 2:49 PM EST [facility] Red Blood Cell Antibody Screen Negative 10/09/2023 2:49 PM EST [facility] Specimen Expiration Date 10/12/2023 23:59 10/09/2023 2:49 PM EST [facility] Blood Venous blood specimen / Unknown Venipuncture / Unknown 10/09/2023 1:46 PM EST 10/09/2023 1:52 PM EST Herber Aviles MD LAB BLOOD BA NK TEST ORDERABLES Performing Organization Address [facility] Co de Phone Number [facility] [address] [place] [address] * (ABNORMAL) PHOSPHORUS (10/09/2023 1:46 PM EST) Phosphorus 2.2(L) 2.5 - 4.8 mg/dL 10/09/2023 2:20 PM EST LABORATORY C Blood Venous blood specimen / Unknown Venipuncture / Unknown 10/09/2023 1:46 PM EST 10/09/2023 1:53 PM EST Herber Aviles MD LAB BLOOD OR DERABLES Performing Organization Address [facility] Co de Phone Number LABORATORY [place] [address] [place] [address] * MAGNESIUM (10/09/2023 1:46 PM EST) Magnesium 2.4 1.5 - 2.6 mg/dL 10/09/2023 2:20 PM EST LABORATORY C Blood Venous blood specimen / Unknown Venipuncture / Unknown 10/09/2023 1:46 PM EST 10/09/2023 1:53 PM EST Herber Aviles MD LAB BLOOD OR DERABLES Performing Organization Address [facility] de Phone Number [facility] [address] [place] [address] * (ABNORMAL) LACTATE (10/09/2023 1:46 PM EST) Lactate 2.3(H) 0.4 - 2.0 mmol/L 10/09/2023 2:19 PM EST LABORATORY [facility] Blood Venous blood specimen / Unknown Venipuncture / Unknown 10/09/2023 1:46 PM EST 10/09/2023 1:53 PM EST Herber Aviles MD LAB BLOOD OR DERABLES Performing Organization Address [facility]/ZIP Co de Phone Number [facility] [address] [place] [address] * PT INR (10/09/2023 1:46 PM EST) Prothrombin Time 14.7 11.6 - 15.2 seconds 10/09/2023 2:08 PM EST LABORATORY [facility] INR 1.1 0.8 - 1.2 10/09/2023 2:08 PM EST [facility] Blood Venous blood specimen / Unknown Venipuncture / Unknown 10/09/2023 1:46 PM EST 10/09/2023 1:52 PM EST Narrative LABORATORY [facility] - 10/09/2023 2:08 PM EST Warfarin Therapy INR: 2.0-3.0 conventional anticoagulation INR: 2.5-3.5 high intensity anticoagulation Herber Aviles MD LAB BLOOD OR DERABLES Performing Organization Address [facility] Co de Phone Number [facility] [address] [place] [address] * (ABNORMAL) CBC (10/09/2023 1:46 PM EST) Pathologist [facility] WBC 13.02(H) 4.00 - 10.80 K/uL 10/09/2023 2:00 PM EST LABORATORY [facility] RBC 3.92 4.50 - 5.25 M/uL 10/09/2023 2:00 PM EST LAB[facility]ATORY [facility] HGB 12.3(L) 14.0 - 16.8 g/dL 10/09/2023 2:00 PM EST LAB[facility]ORY [facility] HCT 36.0(L) 40.0 - 48.4 % 10/09/2023 2:00 PM EST LAB[facility]ORY [facility] MCV 91.8 82.0 - 99.5 fL 10/09/2023 2:00 PM EST LAB[facility] MCH 31.4 27.0 - 34.0 pg 10/09/2023 2:00 PM EST LAB[facility] MCHC 34.2 32.0 - 36.0 g/dL 10/09/2023 2:00 PM EST LAB[facility]ORY [facility] RDW 13.5 11.5 - 15.5 % 10/09/2023 2:00 PM EST [facility] PLT 142 140 - 400 K/uL 10/09/2023 2:00 PM EST [facility] MPV 10.4 6.6 - 11.1 fL 10/09/2023 2:00 PM EST LABORATORY [facility] nRBCs 0 <=0 /100 WBCs 10/09/2023 2:00 PM EST LABORATORY [facility] Blood Venous blood specimen / Unknown Venipuncture / Unknown 10/09/2023 1:46 PM EST 10/09/2023 1:53 PM EST Herber Aviles MD LAB BLOOD OR DERABLES LAB[facility] [address] [place] [address] * (ABNORMAL) BASIC METABOLIC PANEL (10/09/2023 1:46 PM EST) BUN 18 6 - 20 mg/dL 10/09/2023 2:20 PM EST LAB[facility]ATORY [facility] Creatinine 1.2 0.6 - 1.2 mg/dL 10/09/2023 2:20 PM EST LAB[facility]ATORY [facility] Estimated Glomerular Filtration Rate 59(L) >=60 mL/min 10/09/2023 2:20 PM EST LAB[facility]ATORY [facility] Comment:eGFR is calculated b ased on the CKD-EPI 2020 equation Sodium 132(L) 135 - 146 mmol/L 10/09/2023 2:20 PM EST LAB[facility]ATORY [facility] Potassium 4.7 3.5 - 5.1 mmol/L 10/09/2023 2:20 PM EST LAB[facility] Chloride 100 98 - 107 mmol/L 10/09/2023 2:20 PM EST LAB[facility]ORY [facility] CO2 22 22 - 32 mmol/L 10/09/2023 2:20 PM EST [facility] Anion Gap 10 7 - 15 mmol/L 10/09/2023 2:20 PM EST LAB[facility]ATORY [facility] Glucose 197(H) 70 - 120 mg/dL 10/09/2023 2:20 PM EST LAB[facility]ORY [facility] Calcium 8.2(L) 8.4 - 10.2 mg/dL 10/09/2023 2:20 PM EST [facility] Blood Venous blood specimen / Unknown Venipuncture / Unknown 10/09/2023 1:46 PM EST 10/09/2023 1:53 PM EST Herber Aviles MD LAB BLOOD OR DERABLES [facility] [address] [place] [address] documented in this encounter Visit Diagnoses Diagnosis Acute cholecystitis- Primary Acute cholecystitis Pre-op evaluation Preoperative examination, unspecified Cholecystitis Cholecystitis, unspecified Type 2 diabetes mellitus with hemoglobin A1c goal of less than 7.5% (HCC) Current moderate episode of major depressive disorder without prior episode (HCC) BPH without obstruction/lower urinary tract symptoms Hypertrophy of prostate without urinary obstruction and other lower urinary tract symptoms (LUTS) Primary hypertension Unspecified essential hypertension Dyslipidemia, goal LDL below 70 Other and unspecified hyperlipidemia Bradycardia, sinus Other specified cardiac dysrhythmias History of CVA (cerebrovascular accident) Transient ischemic attack (TIA), and cerebral infarction without residual deficits Gastro-esophageal reflux disease without esophagitis Esophageal reflux documented in this encounter Administered Medications Inactive Administered Medications - up to 3 most recent administrations Medication Order MAR Action Action Date Dose Rate Site Acetaminophen (Tylenol) tab 975 mg 975 mg, Oral, Q8H, First dose on Tue10/09/23 at 1400, Until Discontinued, Maximum 4 g acetaminophen/day. Avoid in patients with severe hepatic impairment or severe active liver disease. Begin after around the clock acetaminophen order discontinued Given 10/15/2023 2:04 PM EST 975 mg Given 10/15/2023 6:20 AM EST 975 mg Given 10/14/2023 10:21 PM EST 975 mg atorvaSTATin (Lipitor) tab 40 mg 40 mg, Oral, Q1700, First dose on Tue10/09/23 at 1700, Until Discontinued Given 10/11/2023 7:01 PM EST 40 mg Given 10/10/2023 4:09 PM EST 40 mg Given 10/09/2023 6:48 PM EST 40 mg bacitracin zinc ointment Topical, BID (.AM/PM), First dose on Tue10/11/23 at 0900, Until Discontinued, Apply to: affected area Given 10/15/2023 9:18 AM EST Given 10/14/2023 10:21 PM EST Given 10/14/2023 8:36 AM EST citalopram (CeleXA) tab 20 mg 20 mg, Oral, Daily(AM), First dose on Tue10/10/23 at 0900, Until Discontinued Given 10/15/2023 9:18 AM EST 20 mg Given 10/14/2023 8:34 AM EST 20 mg Given 10/13/2023 9:02 AM EST 20 mg D51/2 NSS + kcl 20 mEq 1000 mL infusion Intravenous, at 50 mL/hr, Expires 96 hours after spiking on (date) at (hour) , CONTINUOUS, Starting on Tue10/12/23 at 1100, Until Tue10/12/23 at 2059 New Bag 10/12/2023 1:24 PM EST 50 mL/hr dextrose 50 % inj 25 mL 25 mL, IV Push, PRN Hypoglycemia, Other, For blood glucose 54 - 69 mg/dL or 70 - 100 mg/dL with symptoms AND patient is unresponsive, NPO, OR unable to swallow, Starting on 10/09/23 at 1331, Until 10/15/23 at 1849, Administer IV. Recheck blood glucose after 15 minutes. Notify provider. dextrose 50 % inj 50 mL 50 mL, IV Push, PRN Hypoglycemia, Other, For blood glucose below 54 mg/dL AND patient unresponsive, NPO, OR unable to swallow, Starting on 10/09/23 at 1331, Until 10/15/23 at 1849, Administer IV. Recheck blood glucose in 15 minutes. Notify provider. Enoxaparin (Lovenox) inj 40 mg 40 mg, Subcutaneous, Daily(AM), First dose on Tue10/10/23 at 0900, Until Discontinued, If patient is on warfarin, inform provider if daily INR value is 2 or greater! Given 10/15/2023 9:18 AM EST 40 mg Abdomen Left Lower Given 10/14/2023 8:35 AM EST 40 mg Ab domen Left Lower Given 10/13/2023 9:01 AM EST 40 mg Ab domen Right Lower fluticasone (Flonase) nasal inhaler 2 R[place] 2 [place], Each Nostril, Daily(AM), First dose on 10/10/23 at 0900, Until Discontinued, 50 mcg / Actuation Given 10/15/2023 9:18 AM EST 2 Sprays Given 10/14/2023 8:36 AM EST 2 Sprays Given 10/13/2023 9:01 AM EST 2 Sprays Gabapentin (Neurontin) cap 100 mg 100 mg, Oral, TID(AM/NOON/HS), First dose on 10/09/23 at 2200, Until Discontinued Given 10/15/2023 12:32 PM EST 10 0 mg Given 10/15/2023 6:20 AM EST 100 mg Given 10/14/2023 10:21 PM EST 100 mg glucagon (Glucagen) inj 1 mg 1 mg, Intramuscular, PRN Hypoglycemia, Other, If patient is unresponsive, or NPO and has no IV access, Starting on 10/09/23 at 1331, Until 10/15/23 at 1849, NPO and no IV access with either 1) blood glucose less than 100 mg/dL and symptomatic OR 2) blood glucose less than 70 mg/dL and asymptomatic Glucose (Glutose 15) 40 % gel 15 g of glucose 15 g of glucose, Oral, PRN Hypoglycemia (low sugar), Other, For blood glucose 54 - 69 mg/dL or 70 - 100 mg/dL with symptoms AND patient alert WITH difficulty chewing/swallowing, Starting on 10/09/23 at 1331, Until 10/15/23 at 1849, Administer gel. Recheck blood glucose after 15 minutes. Notify provider. 37.5 gram tube = 15 grams glucose = 1 each Glucose (Glutose 15) 40 % gel 30 g of glucose 30 g of glucose, Oral, PRN Hypoglycemia (low sugar), Other, For blood glucose below 54 mg/dL AND patient alert WITH difficulty chewing/swallowing, Starting on 10/09/23 at 1331, Until 10/15/23 at 1849, Administer gel. Recheck blood glucose after 15 minutes. Notify provider. 37.5 gram tube = 15 grams glucose = 1 each glucose chew tab 16 g 16 g, Oral, PRN Hypoglycemia, Other, For blood glucose 54 - 69 mg/dL or 70 - 100 mg/dL with symptoms and patient alert without difficulty chewing/swallowing., Starting on 10/09/23 at 1331, Until 10/15/23 at 1849 HYDROmorphone (Dilaudid) inj 0.2 mg 0.2 mg, IV Push, Q15 MIN PRN Pain, Severe, Pain, Breakthrough, Starting on Tue10/12/23 at 1048, Until Tue10/12/23 at 1222, For 4 doses, Administer only postop in PACU. Hold for respiratory rate less than 12. Administer up to a total of 0.8 mg., PACU Given 10/12/2023 10:54 AM EST 0.2 mg insulin aspart (NovoLOG) inj Subcutaneous, ACHS, First dose (after last modification) on 10/10/23 at 2200, Until Discontinued, MEDIUM DOSE (Usual starting dose): Sliding Scale Correctional insulin may be given if the patient is NPO. Dose based on standard build from Insulin Calculator. Do not modify insulin doses in administration instructions! , Glucose less than 70 instructions: Obtain STAT lab blood glucose and call covering provider., Glucose 80-150 (units): 0, Glucose 151-200 (units): 2, Glucose 201-250 (units): 4, Glucose 251-300 (units): 6, Glucose greater than 300 (units): 8, Glucose greater than 300 instructions: Give suggested insulin dose and call covering provider. Given 10/15/2023 12:32 PM EST 2 Units Arm Left Upper Given 10/14/2023 10:21 PM EST 2 Units A rm Right Upper Given 10/14/2023 4:59 PM EST 2 Units Ar m Right Upper isolyte-S pH 7.4 infusion Intravenous, at 50 mL/hr, Plasma-LYTE 148, isolyte-S, and isolyte-S pH 7.4 are considered equivalent - including for MAR barcode scanning., CONTINUOUS, Starting on 10/09/23 at 1400, Until 10/09/23 at 1434 New Bag 10/09/2023 1:30 PM EST 50 m L/hr isolyte-S pH 7.4 infusion Intravenous, at 75 mL/hr, Plasma-LYTE 148, isolyte-S, and isolyte-S pH 7.4 are considered equivalent - including for MAR barcode scanning., CONTINUOUS, Starting on 10/09/23 at 1515, Until 10/09/23 at 1533 Rate Verify 10/09/2023 3:15 PM EST 75 m L/hr isolyte-S pH 7.4 infusion Intravenous, at 125 mL/hr, Plasma-LYTE 148, isolyte-S, and isolyte-S pH 7.4 are considered equivalent - including for MAR barcode scanning., CONTINUOUS, Starting on Tue10/09/23 at 1615, Until Tue10/11/23 at 0536 New Bag 10/10/2023 2:42 AM EST 125 mL/hr Rate Change 10/09/2023 4:15 PM EST 125 mL/hr Morphine Sulfate (PF) inj 4 mg 4 mg, IV Push, ONCE, On Tue10/10/23 at 1300, For 1 dose, Given in nuclear medicine, Radiology Medication Routing (Non-IR) Given 10/10/2023 12:44 PM EST 4 mg NSS 0.9% 1,000 mL bolus infusion Intravenous, at 1,000 mL/hr Administer over 60 Minutes, Administer entire volume within 60 minutes or less., ONCE, 1 dose, On Tue10/11/23 at 1500 New Bag 10/11/2023 2:37 PM EST 1,000 mL 1000 mL/hr omeprazole (PriLOSEC) cap 40 mg 40 mg, Oral, Daily(AM), First dose on Tue10/10/23 at 0900, Until Discontinued Given 10/15/2023 9:18 AM EST 40 mg Given 10/14/2023 8:35 AM EST 40 mg Given 10/13/2023 9:02 AM EST 40 mg ondansetron (Zofran) inj 4 mg 4 mg, IV Push, Q6H PRN Other, May use for nausea or vomiting if patient unable to take oral ondansetron, Starting on Tue10/09/23 at 1316, Until 10/15/23 at 1849 ondansetron ODT (Zofran) tab 4 mg 4 mg, On Tongue, Q6H PRN Nausea, Vomiting, Starting on Tue10/09/23 at 1316, Until 10/15/23 at 1849 oxyCODONE (Oxy IR) tab 10 mg 10 mg, Oral, Q4H PRN Pain, Severe, Starting on Tue10/12/23 at 1507, Until 12/30/23 at 1849 oxyCODONE (Oxy IR) tab 5 mg 5 mg, Oral, Q4H PRN Pain, Moderate, Starting on Tue10/12/23 at 1507, Until 10/15/23 at 1849, Hold for somnolence or respiratory rate less than 10 Given 10/14/2023 5:18 AM EST 5 mg Given 10/13/2023 2:01 AM EST 5 mg oxygen GAS Inhalation, OXYGEN, First dose on Tue10/09/23 at 1600, Until Discontinued, Device/Managed by: Low Flow Device, Goal SPO2 (%): 91-95, Starting Device: Nasal Cannula, Initial Flow Rate (LPM): 2, Lowest Support: Nasal Cannula: Flow 0-6 LPM. Titrate up/down by 1 LPM., Titration Interval: Q2 minutes and as needed., Notify Provider: For sudden DECREASE in resting SPO2 to less than 85% and when escalating delivery device., Wean patient off Oxygen when the oxygen saturation is greater than or equal to 93% Oxygen On 10/14/2023 8:00 AM EST Oxygen On 10/14/2023 12:00 AM EST Oxygen On 10/13/2023 4:00 PM EST Piperacillin-Tazobactam (Zosyn) 4.5 g in 100 mL NSS ivpb (FOUR hour infusion) IV Piggyback, 4.5 g, Q8HNOW, 15 doses, First dose on Tue10/09/23 at 1830, Last dose on Tue10/14/23 at 1030, Administer over 4 Hours, at 25 mL/hr Start Infusion 10/10/2023 2:42 AM EST 4.5 g 25 mL/hr Start Infusion 10/09/2023 6:48 PM EST 4.5 g 25 mL/hr Piperacillin-Tazobactam (Zosyn) 4.5 g in 100 mL NSS ivpb (HALF hour infusion) IV Piggyback, 4.5 g, ONCE, 1 dose, On Tue10/09/23 at 1400, Administer over 30 Minutes New Bag 10/09/2023 1:29 PM EST 4.5 g 200 mL/hr Polyethylene Glycol 3350 (Miralax) oral powder 17 g 17 g (1 Packet), Oral, Daily(AM), First dose on Tue10/11/23 at 0900, Until Discontinued, Mix in 8 oz of water, juice, soda, coffee, or tea. Given 10/14/2023 8:35 AM EST 17 g Given 10/13/2023 9:01 AM EST 17 g Given 10/11/2023 9:22 AM EST 17 g potassium chloride ER tab 40 mEq 40 mEq, Oral, ONCE, On 10/15/23 at 0615, For 1 dose, This med should NOT be Crushed or Chewed Given 10/15/2023 6:19 AM EST 40 mEq Sincalide (Kinevac) inj 1.91 mcg 1.91 mcg (rounded from 1.906 mcg = 0.02 mcg/kg 95.3 kg), Intravenous, ONCE, On 10/10/23 at 1030, For 1 dose, Obtain from radiology, Radiology Medication Routing (Non-IR) Given 10/10/2023 10:44 AM EST 1.91 mcg Forearm Right sodium PHOSphate 1.4 MMOLE/ML oral soln 15.96 mmol 15.96 mmol (0.2 mmol/kg 79.8 kg Order-specific weight), Oral, ONCE, On 10/09/23 at 1545, For 1 dose, DOSES ORDERED in mMoles of PHOSPHATE Dose may be diluted with 30 mL of water to make it more palatable for the patient! Given 10/09/2023 6:47 PM EST 15.96 mmol tamsulosin (Flomax) cap 0.8 mg 0.8 mg, Oral, Daily(AM), First dose on 10/10/23 at 0900, Until Discontinued, Administer 30 min after meal. This med should NOT be Crushed or Chewed or opened! ORAL administration only!! Given 10/15/2023 9:18 AM EST 0.8 mg Given 10/14/2023 8:34 AM EST 0.8 mg Given 10/13/2023 9:02 AM EST 0.8 mg Technetium Tc 99m Mebrofenin (Choletec) inj 7.5 millicurie 7.5 millicurie, Intravenous, ONCE, On 10/10/23 at 1130, For 1 dose, Radiology Medication Routing (Non-IR) Given 10/10/2023 11:28 AM EST 6.9 millicuries Forearm Right documented in this encounter Active and Recently Administered Medications Times are shown in EST. Scheduled Medication Order 10/13/2023 10/14/2023 10/15/2023 Acetaminophen (Tylenol) tab 975 mg 975 mg, Oral, Q8H, First dose on Tue10/09/23 at 1400, Until Discontinued, Maximum 4 g acetaminophen/day. Avoid in patients with severe hepatic impairment or severe active liver disease. Begin after around the clock acetaminophen order discontinued 0544 (Given - Provider: Janiya Mcleod RN)1233 (Given - Provider: Leida Casas RN)2216 (Given - Provider: Janiya Mcleod RN) 0519 (Given - Provider: Aimee Thomas RN)1300 (Given - Provider: Daniella Rose LPN)2221 (Given - Provider: Venus Mercado RN) 0620 (Given - Provider: Venus Mercado RN)1404 (Given - Provider: Daniella Rose LPN) bacitracin zinc ointment Topical, BID (.AM/PM), First dose on Tue10/11/23 at 0900, Until Discontinued, Apply to: affected area 0907 (Given - Provider: Leida Casas RN)2216 (Given - Provider: Janiya Mcleod RN) 0836 (Given - Provider: Daniella Rose LPN)2221 (Given - Provider: Venus Mercado RN) 0918 (Given - Provider: Daniella Rose LPN) citalopram (CeleXA) tab 20 mg 20 mg, Oral, Daily(AM), First dose on Tue10/10/23 at 0900, Until Discontinued 0902 (Given - Provider: Leida Casas RN) 0834 (Given - Provider: Daniella Rose LPN) 0918 (Given - Provider: Daniella Rose LPN) Enoxaparin (Lovenox) inj 40 mg 40 mg, Subcutaneous, Daily(AM), First dose on Tue10/10/23 at 0900, Until Discontinued, If patient is on warfarin, inform provider if daily INR value is 2 or greater! 0901 (Given - Provider: Leida Casas RN) 0835 (Given - Provider: Daniella Rose LPN) 0918 (Given - Provider: Daniella Rose LPN) fluticasone (Flonase) nasal inhaler 2 R[place] 2 [place], Each Nostril, Daily(AM), First dose on Tue10/10/23 at 0900, Until Discontinued, 50 mcg / Actuation 0901 (Given - Provider: Leida Casas RN) 0836 (Given - Provider: Daniella Rose LPN) 0918 (Given - Provider: Daniella Rose LPN) Gabapentin (Neurontin) cap 100 mg 100 mg, Oral, TID(AM/NOON/HS), First dose on Tue10/09/23 at 2200, Until Discontinued 0545 (Given - Provider: Janiya Mcleod RN)1232 (Given - Provider: Leida Casas RN)2216 (Given - Provider: Janiya Mcleod RN) 0519 (Given - Provider: Aimee Thomas RN)1300 (Given - Provider: Daniella Rose LPN)222 (Given - Provider: Venus Mercado RN) 0620 (Given - Provider: Venus Mercado RN)1232 (Given - Provider: Daniella Rose LPN) insulin aspart (NovoLOG) inj Subcutaneous, ACHS, First dose (after last modification) on Tue10/10/23 at 2200, Until Discontinued, MEDIUM DOSE (Usual starting dose): Sliding Scale Correctional insulin may be given if the patient is NPO. Dose based on standard build from Insulin Calculator. Do not modify insulin doses in administration instructions! , Glucose less than 70 instructions: Obtain STAT lab blood glucose and call covering provider., Glucose 80-150 (units): 0, Glucose 151-200 (units): 2, Glucose 201-250 (units): 4, Glucose 251-300 (units): 6, Glucose greater than 300 (units): 8, Glucose greater than 300 instructions: Give suggested insulin dose and call covering provider. 0902 (Given - Provider: Leida Casas RN)1147 (No Insulin - Provider: Leida Casas RN - Reason: Parameter(s) Not Met - Comment: [phone] (Given - Provider: Arin Jolley RN)221 (Given - Provider: Janiya Mcleod RN) 0835 (Given - Provider: Daniella Rose LPN)1300 (Given - Provider: Daniella Rose LPN)1659 (Given - Provider: Daniella Rose LPN)2221 (Given - Provider: Venus Mercado RN) 0730 (No Insulin - Provider: Daniella Rose LPN - Reason: Parameter(s) Not Met)1232 (Given - Provider: Daniella Rose LPN) omeprazole (PriLOSEC) cap 40 mg 40 mg, Oral, Daily(AM), First dose on Tue10/10/23 at 0900, Until Discontinued 0902 (Given - Provider: Leida Casas RN) 0835 (Given - Provider: Daniella Rose LPN) 0918 (Given - Provider: Daniella Rose LPN) oxygen GAS Inhalation, OXYGEN, First dose on Tue10/09/23 at 1600, Until Discontinued, Device/Managed by: Low Flow Device, Goal SPO2 (%): 91-95, Starting Device: Nasal Cannula, Initial Flow Rate (LPM): 2, Lowest Support: Nasal Cannula: Flow 0-6 LPM. Titrate up/down by 1 LPM., Titration Interval: Q2 minutes and as needed., Notify Provider: For sudden DECREASE in resting SPO2 to less than 85% and when escalating delivery device., Wean patient off Oxygen when the oxygen saturation is greater than or equal to 93% 0000 (Oxygen On - Provider: Janiya Mcleod RN)0903 (Oxygen On - Provider: Leida Casas RN)1600 (Oxygen On - Provider: Arin Jolley RN) 0000 (Oxygen On - Provider: Aimee Thomas RN)0800 (Oxygen On - Provider: Daniella Rose LPN)1600 (Oxygen Off - Provider: Daniella Rose LPN) 0000 (Oxygen Off - Provider: Venus eMrcado RN)0800 (Oxygen Off - Provider: Daniella Rose LPN) Polyethylene Glycol 3350 (Miralax) oral powder 17 g 17 g (1 Packet), Oral, Daily(AM), First dose on Tue10/11/23 at 0900, Until Discontinued, Mix in 8 oz of water, juice, soda, coffee, or tea. 0901 (Given - Provider: Leida Casas RN) 0835 (Given - Provider: Daniella Rose LPN) 0918 (Not Given - Provider: Daniella Rose LPN - Reason: Parameter(s) Not Met) potassium chloride ER tab 40 mEq (COMPLETED) 40 mEq, Oral, ONCE, On 10/15/23 at 0615, For 1 dose, This med should NOT be Crushed or Chewed 0619 (Given - Provider: Venus Mercado RN) tamsulosin (Flomax) cap 0.8 mg 0.8 mg, Oral, Daily(AM), First dose on 10/10/23 at 0900, Until Discontinued, Administer 30 min after meal. This med should NOT be Crushed or Chewed or opened! ORAL administration only!! 09 (Given - Provider: Leida Casas RN) 0834 (Given - Provider: Daniella Rose LPN) 0918 (Given - Provider: Daniella Rose LPN) PRN Medication Order 10/13/2023 10/14/2023 10/15/2023 dextrose 50 % inj 25 mL 25 mL, IV Push, PRN Hypoglycemia, Other, For blood glucose 54 - 69 mg/dL or 70 - 100 mg/dL with symptoms AND patient is unresponsive, NPO, OR unable to swallow, Starting on 10/09/23 at 1331, Until 10/15/23 at 1849, Administer IV. Recheck blood glucose after 15 minutes. Notify provider. dextrose 50 % inj 50 mL 50 mL, IV Push, PRN Hypoglycemia, Other, For blood glucose below 54 mg/dL AND patient unresponsive, NPO, OR unable to swallow, Starting on 10/09/23 at 1331, Until 10/15/23 at 1849, Administer IV. Recheck blood glucose in 15 minutes. Notify provider. glucagon (Glucagen) inj 1 mg 1 mg, Intramuscular, PRN Hypoglycemia, Other, If patient is unresponsive, or NPO and has no IV access, Starting on 10/09/23 at 1331, Until 10/15/23 at 1849, NPO and no IV access with either 1) blood glucose less than 100 mg/dL and symptomatic OR 2) blood glucose less than 70 mg/dL and asymptomatic Glucose (Glutose 15) 40 % gel 15 g of glucose 15 g of glucose, Oral, PRN Hypoglycemia (low sugar), Other, For blood glucose 54 - 69 mg/dL or 70 - 100 mg/dL with symptoms AND patient alert WITH difficulty chewing/swallowing, Starting on 10/09/23 at 1331, Until 10/15/23 at 1849, Administer gel. Recheck blood glucose after 15 minutes. Notify provider. 37.5 gram tube = 15 grams glucose = 1 each Glucose (Glutose 15) 40 % gel 30 g of glucose 30 g of glucose, Oral, PRN Hypoglycemia (low sugar), Other, For blood glucose below 54 mg/dL AND patient alert WITH difficulty chewing/swallowing, Starting on 10/09/23 at 1331, Until 10/15/23 at 1849, Administer gel. Recheck blood glucose after 15 minutes. Notify provider. 37.5 gram tube = 15 grams glucose = 1 each glucose chew tab 16 g 16 g, Oral, PRN Hypoglycemia, Other, For blood glucose 54 - 69 mg/dL or 70 - 100 mg/dL with symptoms and patient alert without difficulty chewing/swallowing., Starting on 10/09/23 at 1331, Until 10/15/23 at 1849 ondansetron (Zofran) inj 4 mg(Linked Group 1) 4 mg, IV Push, Q6H PRN Other, May use for nausea or vomiting if patient unable to take oral ondansetron, Starting on 10/09/23 at 1316, Until 10/15/23 at 1849 ondansetron ODT (Zofran) tab 4 mg(Linked Group 1) 4 mg, On Tongue, Q6H PRN Nausea, Vomiting, Starting on 10/09/23 at 1316, Until 10/15/23 at 1849 oxyCODONE (Oxy IR) tab 10 mg 10 mg, Oral, Q4H PRN Pain, Severe, Starting on Tue10/12/23 at 1507, Until 10/15/23 at 1849 oxyCODONE (Oxy IR) tab 5 mg 5 mg, Oral, Q4H PRN Pain, Moderate, Starting on Tue10/12/23 at 1507, Until 10/15/23 at 1849, Hold for somnolence or respiratory rate less than 10 0201 (Given - Provider: Janiya Mcloed, DARIUS) 0518 (Given - Provider: Aimee Thomas, DARIUS) Linked Groups Order Group 1: ondansetron ODT (Zofran) tab 4 mgJump to med 4 mg, On Tongue, Q6H PRN Nausea, Vomiting, Starting on 10/09/23 at 1316, Until 10/15/23 at 1849 Or ondansetron (Zofran) inj 4 mgJump to med 4 mg, IV Push, Q6H PRN Other, May use for nausea or vomiting if patient unable to take oral ondansetron, Starting on 10/09/23 at 1316, Until 10/15/23 at 1849 documented in this encounter Advance Directives Latest Code Status on File Code Status Date Activated Date Inactivated Comments Full Code 10/09/2023 1:18 PM 10/15/2023 6:49 PM Question Answer Comments Discussion of Advance Direct david occurred with: Patient Care Teams Impression Printer Relationship Specialty Start Date End Date David Palm MD [address] [place] [address] [place] [address] PCP - General Family Medicine 07/22/15 documented as of this encounter
--- OUTSIDE RECORDS SUMMARY | 2023-10-29 02:51 | External Medical Summary ---
Author Name Unknown Address Unknown Organization [id number]:LABORATORY [facility] - [address] [place] [address] Laboratory Report Ordering Provider Test Date Status SPENCER SOLANO 10/15/2023 07:29:00 Final Observation Date Value Abnormality Reference (Units ) Status Magnesium 10/15/2023 07:29:00 1.8 1.5-2.6 (m g/dL) Final Performing Location [facility] - [address] [place] [address]
--- OUTSIDE RECORDS SUMMARY | 2023-10-29 02:51 | External Medical Summary | Summary of Care ---
Author Name Unknown Organization [facility] Address [address] [place] [address] Phone [phone] Care Team Providers Care Thresher Broomcorn Name Role Phone David Brush MD Primary Care Provider Encounter Details Date Type Department Care Team (Latest Contact Info) Description 10/08/2023 5:30 PM EST - 10/08/2023 11:59 PM EST Hospital Encounter Radiology Film File [address] [place] [address] Discharge Disposition: Home - Self Care Allergies No known active allergiesdocumented as of this encounter (statuses as of 10/13/2023) Medications Medication Sig Dispensed Refills Start Date End Date Status Placecast SYSTEM W/DEVICE KITIndications:DM type 2, goal A1c below 7 Use up to four times a day as directed 1 Kit 0 04/08/2014 Suspended Additional Information LANCETS MISCIndications:DM type 2, goal A1c below 7 test once a day 3 Box 1 12/31/2014 Suspended Additional Information Aspirin 81 MG Oral Tablet Delayed Release Take 1 Tablet by mouth in the morning. 0 03/15/2022 Suspended Vitamin D3 50 MCG (1999 UT) Oral Tablet Take 1 Tablet by mouth in the morning. 0 Suspended Acetaminophen 500 MG Oral Tablet (Tylenol) Take 1 Tablet by mouth every 6 hours as needed. 0 Suspended Systane 0.4-0.3 % Ophthalmic Solution (Polyethyl Glycol-Propyl Glycol) Instill into eye as needed for Dry eyes. 0 Suspended Pantoprazole Sodium 40 MG Oral Tablet Delayed Release (Protonix) Take 1 Tablet (40 mg) by mouth in the morning. 90 Tablet 3 09/22/2022 Suspended Additional Information Gabapentin 100 MG Oral Capsule (Neurontin) 1 tab three times daily 270 Capsule 3 11/18/2022 Suspended Additional Information Fluticasone Propionate 50 MCG/ACT Nasal Suspension (Flonase)Indicatio ns:PND (post-nasal drip) Administer 2 Sprays into each nostril in the morning. 1 Each 0 12/08/2022 Suspended Additional Information Benazepril HCl 10 MG Oral Tablet (Lotensin)Indicati ons:Type 2 diabetes mellitus with hemoglobin A1c goal of less than 7.5% (HCC),Hyperlipidem ia with target LDL less than 100,Primary hypertension Take 1 Tablet by mouth in the morning. 90 Tablet 1 03/30/2023 Suspended Additional Information Tamsulosin HCl 0.4 MG Oral Capsule (Flomax)Indication s:BPH without obstruction/lower urinary tract symptoms Take 2 Capsules by mouth in the morning. 180 Capsule 1 03/30/2023 Suspended Additional Information Magnesium Oxide 400 MG Oral TabletIndications: Hypomagnesemia Take 1 Tablet by mouth daily. 90 Tablet 3 04/08/2023 Suspended Additional Information Citalopram Hydrobromide 20 MG Oral Tablet (CeleXA)Indication s:Adjustment disorder with depressed mood Take 1 Tablet by mouth in the morning. 90 Tablet 1 05/17/2023 Suspended Additional Information Atorvastatin Calcium 40 MG Oral Tablet (Lipitor)Indicatio ns:Type 2 diabetes mellitus with hemoglobin A1c goal of less than 7.5% (HCC),Dyslipidemia , goal LDL below 70 Take 1 tablet by mouth once daily 90 Tablet 1 07/06/2023 Suspended Additional Information metFORMIN HCl ER 500 MG Oral Tablet Extended Release 24 Hour (Glucophage XR)Indications:Typ e 2 diabetes mellitus with hemoglobin A1c goal of less than 7.5% (HCC) TAKE 2 TABLETS BY MOUTH IN THE MORNING AND 2 TABS BEFORE BEDTIME 360 Tablet 1 09/01/2023 Suspended Additional Information OneTouch Verio In Vitro Strip (Glucose Blood)Indications: Type 2 diabetes mellitus with hemoglobin A1c goal of less than 7.5% (HCC) Use to test blood sugar up to twice a day as directed. DxE11.9 200 Strip 3 09/06/2023 Suspended Additional Information Clopidogrel Bisulfate 75 MG Oral Tablet (pLAVix)Indication s:History of CVA (cerebrovascular accident),TIA (transient ischemic attack) Take 1 Tablet by mouth in the morning. 90 Tablet 3 09/29/2023 Suspended Additional Information documented as of this encounter (statuses as of 10/13/2023) Active Problems Problem Noted Date Diagnosed Date [...] as of this encounter (statuses as of 10/13/2023) Resolved Problems Problem Noted Date Diagnosed Date [...] cecum GI (gastrointestinal bleed) 09/27/2016 09/05/2017 Overview: [facility] 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 158/82 Vitamin D deficiency 07/02/2009 018 Overview: Vitamin D 16.9 Diverticulosis of colon with hemorrhage 02/23/2008 08/31/2012 Overview: Admitted to [place] with lower GI bleed Acute gastritis with [...] as of this encounter (statuses as of 10/13/2023) Immunizations Name Administration Dates Next Due COVID-19 [...] PM EDT Office Visit Family Medicine [address] [place] [phone] Rebekah Giron [address] [place] [address] 02/28/2024 1:00 PM EDT Office Visit Cardiology [address] [place] [address] Frederick Buck PA-C [address] [place] [address] 07/04/2024 3:00 PM EDT Nurse Only Ancillary [address] [place] [address] [place], Nurse [address] [place] [address] Scheduled Procedures Name Priority Associated Diagnoses Date/Ti [...] 07/19/2019, 07/19/2019, 10/21/2016, Additional history exists GFR 10/13/2024 10/13/2023, 09/17, 10/11/2023, Additional history exists Pneumococcal Vaccine: 65+ Years [...] this encounter Medical Devices Implanted Type Area Blueprint Machine Operator Device Identifier Shelf Expiration Date Model / Serial / Lot Lens Intraoc 21.5 - [id number] - [id number] Implanted:Qty: 1 on 05/27/2020 by Da Carter MD at OR [facility] Left: Eye [employer] LOMB 09/15/2024 [id number] / [id number] / Lens Intraoc 22.5 - [id number] - [id number] Implanted:Qty: 1 on 06/03/2020 by Da Carter MD at OR [facility] Right: Eye BAUSCH [employer] LOMB 09/15/2024 [id number] / [id number] / [id number] documented as of this encounter Procedures Procedure Name Priority Date/Time Associated Diagnosis Comments RADIOLOGY EXAM - US (IMAGES ONLY, NO REPORT) Routine 10/08/2023 5:30 PM EST documented in this encounter Results * RADIOLOGY EXAM - US (IMAGES ONLY, NO REPORT) (10/08/2023 5:30 PM EST) 10/08/2023 5:27 PM EST Narrative Scheduling, Silent - 10/12/2023 9:03 AM EST This is an imaging study not interpreted or resulted by a [employer] or [email or web address] contracted radiologist. David Brush MD RAD ULTRASOUND documented in this encounter Advance Directives Latest Code Status on File Code Status Date Activated Date Inactivated Comments Full Code 10/09/2023 1:18 PM Question Answer Comments Discussion of Advance Direct david occurred with: Patient Care Teams Thresher Broomcorn Relationship Specialty Start Date End Date David Brush MD [address] [place] [address] [place] [phone] PCP - General Family Medicine 07/22/15 documented as of this encounter
--- OUTSIDE RECORDS SUMMARY | 2023-10-29 02:51 | External Medical Summary ---
Author Name Unknown Address Unknown Organization : Laboratory Report Ordering Provider Test Date Status IZABELA LANTIGUA 10/14/2023 16:33:15 Final Observation Date Value Abnormality Reference (Units ) Status Glucose Point of Care 10/14/2023 16:33:15 163 Above high normal 70-120 (mg/dL) Final Performing Location
--- OUTSIDE RECORDS SUMMARY | 2023-10-29 02:51 | External Medical Summary ---
Author Name Unknown Address Unknown Organization [id number]:LABORATORY [facility] [place] - [address] [place] [address] Laboratory Report Ordering Provider Test Date Status SPENCER SOLANO 10/14/2023 08:23:00 Final Observation Date Value Abnormality Reference (Units ) Status Phosphate 10/14/2023 08:23:00 2.3 Below low normal 2.5 -4.8 (mg/dL) Final Performing Location [facility] - [address] [place] [address]
--- OUTSIDE RECORDS SUMMARY | 2023-10-29 02:51 | External Medical Summary ---
Author Name Unknown Address Unknown Organization [id number]:LABORATORY [facility] [place] - [address] [place] [address] Laboratory Report Ordering Provider Test Date Status MABEL DE LEON 10/14/2023 08:23:00 Final Observation Date Value Abnormality Reference (Units ) Status BUN 10/14/2023 08:23:00 16 6-20 (mg/dL) Final Creatinine 10/14/2023 08:23:00 1.1 0.6-1.2 (mg/dL) Final Glomerular filtration rate/1.73 sq M.predicted [Volume Rate/Area] in Serum, Plasma or Blood by Creatinine-based formula (CKD-EPI) 10/14/2023 08:23:00 66 >=60 (mL/min) Final eGFR is calculated based on the CKD-EPI 2020 equation SODIUM 10/14/2023 08:23:00 138 135-146 (m mol/L) Final Potassium 10/14/2023 08:23:00 3.4 Below low normal 3.5 -5.1 (mmol/L) Final Cl 10/14/2023 08:23:00 102 98-107 (mm ol/L) Final CO2 10/14/2023 08:23:00 26 22-32 (mmo l/L) Final Anion gap 10/14/2023 08:23:00 10 7-15 (mmol /L) Final Glucose 10/14/2023 08:23:00 151 Above high normal 70 -120 (mg/dL) Final Calcium 10/14/2023 08:23:00 8.7 8.4-10.2 ( mg/dL) Final Performing Location LABORATORY [facility] [place] - [address] [place] [address]
--- OUTSIDE RECORDS SUMMARY | 2023-10-29 02:51 | External Medical Summary ---
Author Name Unknown Address Unknown Organization K01:LABORATORY [facility] - [address] [place] [address] Laboratory Report Ordering Provider Test Date Status SPENCER SOLANO 10/14/2023 08:23:00 Final Observation Date Value Abnormality Reference (Units ) Status Magnesium 10/14/2023 08:23:00 2.0 1.5-2.6 (m g/dL) Final Performing Location [facility] - [address] [place] [address]
--- OUTSIDE RECORDS SUMMARY | 2023-10-29 02:51 | External Medical Summary ---
Author Name Unknown Address Unknown Organization [id number]:[facility] [place] [address] [place] [address] Laboratory Report Ordering Provider Test Date Status MABEL DE LEON 10/15/2023 07:29:00 Final Observation Date Value Abnormality Reference (Units ) Status BUN 10/15/2023 07:29:00 17 6-20 (mg/dL) Final Creatinine 10/15/2023 07:29:00 1.2 0.6-1.2 (mg/dL) Final Glomerular filtration rate/1.73 sq M.predicted [Volume Rate/Area] in Serum, Plasma or Blood by Creatinine-based formula (CKD-EPI) 10/15/2023 07:29:00 62 >=60 (mL/min) Final eGFR is calculated based on the CKD-EPI 2020 equation SODIUM 10/15/2023 07:29:00 139 135-146 (m mol/L) Final Potassium 10/15/2023 07:29:00 3.8 3.5-5.1 (m mol/L) Final Cl 10/15/2023 07:29:00 102 98-107 (mm ol/L) Final CO2 10/15/2023 07:29:00 29 22-32 (mmo l/L) Final Anion gap 10/15/2023 07:29:00 8 7-15 (mmol /L) Final Glucose 10/15/2023 07:29:00 152 Above high normal 70 -120 (mg/dL) Final Calcium 10/15/2023 07:29:00 8.6 8.4-10.2 ( mg/dL) Final Performing Location [facility] [place] [address] [place] [address]
--- OUTSIDE RECORDS SUMMARY | 2023-10-29 02:51 | External Medical Summary ---
Author Name Unknown Address Unknown Organization : Laboratory Report Ordering Provider Test Date Status IZABELA LANTIGUA 10/15/2023 07:04:52 Final Observation Date Value Abnormality Reference (Units ) Status Glucose Point of Care 10/15/2023 07:04:52 125 Above high normal 70-120 (mg/dL) Final Performing Location
--- OUTSIDE RECORDS SUMMARY | 2023-10-29 02:51 | External Medical Summary ---
Author Name Unknown Address Unknown Organization : Laboratory Report Ordering Provider Test Date Status IZABELA LANTIGUA 10/13/2023 21:50:26 Final Observation Date Value Abnormality Reference (Units ) Status Glucose Point of Care 10/13/2023 21:50:26 181 Above high normal 70-120 (mg/dL) Final Performing Location
--- OUTSIDE RECORDS SUMMARY | 2023-10-29 02:51 | External Medical Summary ---
Author Name Unknown Address Unknown Organization : Laboratory Report Ordering Provider Test Date Status IZABELA LANTIGUA 10/14/2023 21:16:46 Final Observation Date Value Abnormality Reference (Units ) Status Glucose Point of Care 10/14/2023 21:16:46 189 Above high normal 70-120 (mg/dL) Final Performing Location
--- OUTSIDE RECORDS SUMMARY | 2023-10-29 02:52 | External Medical Summary | Summary of Care ---
Author Name Unknown Organization [facility] Address [address] [place] [address] Phone [phone] Care Team Providers Care Marketing Clerk Name Role Phone David Brush MD Primary Care Provider Encounter Details Date Type Department Care Team (Late st Contact Info) Description 10/08/2023 Orders Only Family Medicine [address] [phone] David Brush MD [address] [place] [id number] Allergies No known active allergiesdocumented as of this encounter (statuses as of 10/12/2023) Medications Medication Sig Dispensed Refills Start Date End Date Status FlatStack SYSTEM W/DEVICE KITIndications:DM type 2, goal A1c [...] 0 03/15/2022 Suspended Vitamin D3 50 MCG (2000 UT) Oral [...] hemoglobin A1c goal of less than 7.5% ([facility]) Use to test blood sugar up to twice a day as directed. DxE11.9 200 Strip 3 09/06/2023 Suspended Additional Information Clopidogrel Bisulfate 75 MG Oral Tablet (pLAVix)Indication s:History of CVA (cerebrovascular accident),TIA (transient ischemic attack) Take 1 Tablet by mouth in the morning. 90 Tablet 3 09/29/2023 Suspended Additional Information documented as of this encounter (statuses as of 10/12/2023) Active Problems Problem Noted Date Diagnosed Date [...] as of this encounter (statuses as of 10/12/2023) Resolved Problems Problem Noted Date Diagnosed Date [...] cecum GI (gastrointestinal bleed) 09/27/2016 09/05/2017 Overview: [facility] 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 158/82 Vitamin D deficiency 07/02/2009 018 Overview: Vitamin D 16.9 Diverticulosis of colon with hemorrhage 02/23/2008 08/31/2012 Overview: Admitted to [place] with lower GI bleed Acute gastritis with [...] as of this encounter (statuses as of 10/12/2023) Immunizations Name Administration Dates Next Due COVID-19 mRNA, LNP-s, No Pre serve, 2-Dose Series ([employer]) 10/06/2021,01/24/2021,01/03/2021 Pneumococcal Conjugate Vacc, 13 Valent (Prevnar) [...] 2:30 PM EDT Office Visit Family Medicine [address] [place] [phone] Rebekah Giron[address] [place] [address] 02/28/2024 1:00 PM EDT Office Visit Cardiology [address] [place] [address] Frederick Buck PA-C [address] [place] [address] 07/04/2024 3:00 PM EDT Nurse Only Ancillary [address] [place] [address] [place], Nurse Annual [address] [place] [address] Scheduled Procedures Name Priority Associated Diagnoses Date/Ti me LAPAROSCOPIC CHOLECYSTECTOMY Cholecystitis 10/12/2023 7:43 AM EST COLONOSCOPY FLEXIBLE PROXIMA L DIAGNOSTIC Recall History of colon polyps Health [...] 07/19/2019, 07/19/2019, 10/21/2016, Additional history exists GFR 10/12/2024 10/12/2023, 09/17, 10/11/2023, Additional history exists Pneumococcal Vaccine: [...] this encounter Medical Devices Implanted Type Area Press Cleaner Device Identifier Shelf Expiration Date Model / Serial / Lot Lens Intraoc 21.5 - [id number] - [id number] Implanted:Qty: 1 on 05/27/2020 by Da Carter MD at OR [facility] Left: Eye BA[employer]OMB 09/15/2024 [id number] / [id number] / Lens Intraoc 22.5 - [id number] - [id number] Implanted:Qty: 1 on 06/03/2020 by Da Carter MD at OR [facility] Right: Eye BAUSCH [employer] LOMB 09/15/2024 [id number] / [id number] / [id number] documented as of this encounter Procedures Procedure Name Priority Date/Time Associated Diagnosis Comments RADIOLOGY EXAM - GENERAL RAD (IMAGES ONLY,NO REPORT) Routine 10/08/2023 10:25 AM EST documented in this encounter Results * RADIOLOGY EXAM - GENERAL RAD (IMAGES ONLY,NO REPORT) (10/08/2023 10:25 AM EST) 10/08/2023 10:2 1 AM EST Narrative Scheduling, Silent - 10/12/2023 9:05 AM EST This is an imaging study not interpreted or resulted by a [facility] or [employer] contracted radiologist. David Brush MD RADIOLOGY (RAD GENER AL) documented in this encounter Advance Directives Latest Code Status on File Code Status Date Activated Date Inactivated Comments Full Code 10/09/2023 1:18 PM Question Answer Comments Discussion of Advance Direct david occurred with: Patient Care Teams Marketing Clerk Relationship Specialty Start Date End Date David Brush MD [address] [place] [address] [place] [address] PCP - General Family Medicine 07/22/15 documented as of this encounter
--- OUTSIDE RECORDS SUMMARY | 2023-10-29 02:52 | External Medical Summary ---
Author Name Unknown Address Unknown Organization K01:LAB[facility]ATORY [facility] - [address] [place] [address] Laboratory Report Ordering Provider Test Date Status SPENCER SOLANO 10/12/2023 04:26:00 Final Observation Date Value Abnormality Reference (Units ) Status Phosphate 10/12/2023 04:26:00 3.1 2.5-4.8 (m g/dL) Final Performing Location [facility] - [address] [place] [address]
--- OUTSIDE RECORDS SUMMARY | 2023-10-29 02:52 | External Medical Summary ---
Author Name Unknown Address Unknown Organization K01:LAB[place]ATORY [facility] [place] [address] [place] [address] Laboratory Report Ordering Provider Test Date Status MABEL DE LEON 10/13/2023 09:10:00 Final Observation Date Value Abnormality Reference (Units ) Status BUN 10/13/2023 09:10:00 14 6-20 (mg/dL) Final Creatinine 10/13/2023 09:10:00 1.1 0.6-1.2 (mg/dL) Final Glomerular filtration rate/1.73 sq M.predicted [Volume Rate/Area] in Serum, Plasma or Blood by Creatinine-based formula (CKD-EPI) 10/13/2023 09:10:00 70 >=60 (mL/min) Final eGFR is calculated based on the CKD-EPI 2020 equation SODIUM 10/13/2023 09:10:00 139 135-146 (m mol/L) Final Potassium 10/13/2023 09:10:00 3.5 3.5-5.1 (m mol/L) Final Cl 10/13/2023 09:10:00 102 98-107 (mm ol/L) Final CO2 10/13/2023 09:10:00 25 22-32 (mmo l/L) Final Anion gap 10/13/2023 09:10:00 12 7-15 (mmol /L) Final Glucose 10/13/2023 09:10:00 220 Above high normal 70 -120 (mg/dL) Final Calcium 10/13/2023 09:10:00 8.5 8.4-10.2 ( mg/dL) Final Performing Location [facility] [facility] [place] [address] [place] [address]
--- OUTSIDE RECORDS SUMMARY | 2023-10-29 02:52 | External Medical Summary ---
Author Name Unknown Address Unknown Organization K01:LABORATORY [facility] - [address] [place] [address] Laboratory Report Ordering Provider Test Date Status SPENCER SOLANO 10/11/2023 06:41:00 Final Observation Date Value Abnormality Reference (Units ) Status Magnesium 10/11/2023 06:41:00 2.6 1.5-2.6 (m g/dL) Final Performing Location [facility] - [address] [place] [address]
--- OUTSIDE RECORDS SUMMARY | 2023-10-29 02:52 | External Medical Summary ---
Author Name Unknown Address Unknown Organization : Laboratory Report Ordering Provider Test Date Status IZABELA LANTIGUA 10/12/2023 10:35:38 Final Observation Date Value Abnormality Reference (Units ) Status Glucose Point of Care 10/12/2023 10:35:38 180 Above high normal 70-120 (mg/dL) Final Performing Location
--- OUTSIDE RECORDS SUMMARY | 2023-10-29 02:52 | External Medical Summary ---
Author Name Unknown Address Unknown Organization K01:LABORATORY [place] [address] [place] [address] Laboratory Report Ordering Provider Test Date Status MABEL DE LEON 10/12/2023 04:26:00 Final Observation Date Value Abnormality Reference (Units ) Status WBC, Total 10/12/2023 04:26:00 5.53 4.00-10.80 (K/uL) Final RBC 10/12/2023 04:26:00 3.92 4.50-5.25 (M/uL) Final Hemoglobin 10/12/2023 04:26:00 12.2 Below low normal 14.0-16.8 (g/dL) Final HCT 10/12/2023 04:26:00 37.3 Below low normal 40.0-48.4 (%) Final MCV 10/12/2023 04:26:00 95.2 82.0-99.5 (fL) Final MCH 10/12/2023 04:26:00 31.1 27.0-34.0 (pg) Final MCHC 10/12/2023 04:26:00 32.7 32.0-36.0 (g/dL) Final RDW 10/12/2023 04:26:00 13.7 11.5-15.5 (%) Final Platelets 10/12/2023 04:26:00 154 140-400 (K/uL) Final MPV 10/12/2023 04:26:00 9.7 6.6-11.1 (fL) Final Nucleated erythrocytes/100 leukocytes [Ratio] in Blood by Automated count 10/12/2023 04:26:00 0 <=0 (/100 WBCs) Final Performing Location [facility] [facility] [place] [address] [place] [address]
--- OUTSIDE RECORDS SUMMARY | 2023-10-29 02:52 | External Medical Summary ---
Author Name Unknown Address Unknown Organization K01:LABORATORY [place] [address] [place] [address] Laboratory Report Ordering Provider Test Date Status MABEL DE LEON 10/13/2023 09:11:00 Final Observation Date Value Abnormality Reference (Units ) Status WBC, Total 10/13/2023 09:11:00 7.08 4.00-10.80 (K/uL) Final RBC 10/13/2023 09:11:00 3.94 4.50-5.25 (M/uL) Final Hemoglobin 10/13/2023 09:11:00 12.3 Below low normal 14.0-16.8 (g/dL) Final HCT 10/13/2023 09:11:00 38.0 Below low normal 40.0-48.4 (%) Final MCV 10/13/2023 09:11:00 96.4 82.0-99.5 (fL) Final MCH 10/13/2023 09:11:00 31.2 27.0-34.0 (pg) Final MCHC 10/13/2023 09:11:00 32.4 32.0-36.0 (g/dL) Final RDW 10/13/2023 09:11:00 14.1 11.5-15.5 (%) Final Platelets 10/13/2023 09:11:00 145 140-400 (K/uL) Final MPV 10/13/2023 09:11:00 10.0 6.6-11.1 (fL) Final Nucleated erythrocytes/100 leukocytes [Ratio] in Blood by Automated count 10/13/2023 09:11:00 0 <=0 (/100 WBCs) Final Performing Location LABORATORY [facility] [place] - [address] [place] [address]
--- OUTSIDE RECORDS SUMMARY | 2023-10-29 02:52 | External Medical Summary ---
Author Name Unknown Address Unknown Organization : Laboratory Report Ordering Provider Test Date Status IZABELA LANTIGUA 10/12/2023 16:18:06 Final Observation Date Value Abnormality Reference (Units ) Status Glucose Point of Care 10/12/2023 16:18:06 156 Above high normal 70-120 (mg/dL) Final Performing Location
--- OUTSIDE RECORDS SUMMARY | 2023-10-29 02:52 | External Medical Summary ---
Author Name Unknown Address Unknown Organization : Laboratory Report Ordering Provider Test Date Status IZABELA LANTIGUA 10/13/2023 11:20:50 Final Observation Date Value Abnormality Reference (Units ) Status Glucose Point of Care 10/13/2023 11:20:50 134 Above high normal 70-120 (mg/dL) Final Performing Location
--- OUTSIDE RECORDS SUMMARY | 2023-10-29 02:52 | External Medical Summary ---
Author Name Unknown Address Unknown Organization : Laboratory Report Ordering Provider Test Date Status IZABELA LANTIGUA 10/11/2023 07:02:58 Final Observation Date Value Abnormality Reference (Units ) Status Glucose Point of Care 10/11/2023 07:02:58 110 70-120 (mg/dL) Final Performing Location
--- OUTSIDE RECORDS SUMMARY | 2023-10-29 02:52 | External Medical Summary ---
Author Name Unknown Address Unknown Organization : Laboratory Report Ordering Provider Test Date Status IZABELA LANTIGUA 10/10/2023 20:54:03 Final Observation Date Value Abnormality Reference (Units ) Status Glucose Point of Care 10/10/2023 20:54:03 129 Above high normal 70-120 (mg/dL) Final Performing Location
--- OUTSIDE RECORDS SUMMARY | 2023-10-29 02:52 | External Medical Summary ---
Author Name Unknown Address Unknown Organization : Laboratory Report Ordering Provider Test Date Status IZABELA LANTIGUA 10/13/2023 16:19:41 Final Observation Date Value Abnormality Reference (Units ) Status Glucose Point of Care 10/13/2023 16:19:41 177 Above high normal 70-120 (mg/dL) Final Performing Location
--- OUTSIDE RECORDS SUMMARY | 2023-10-29 02:52 | External Medical Summary ---
Author Name Unknown Address Unknown Organization : Laboratory Report Ordering Provider Test Date Status IZABELA LANTIGUA 10/11/2023 16:44:50 Final Observation Date Value Abnormality Reference (Units ) Status Glucose Point of Care 10/11/2023 16:44:50 140 Above high normal 70-120 (mg/dL) Final Performing Location
--- OUTSIDE RECORDS SUMMARY | 2023-10-29 02:52 | External Medical Summary ---
Author Name Unknown Address Unknown Organization [id number]:LABORATORY [facility] - [address] [place] [address] Laboratory Report Ordering Provider Test Date Status SPENCER SOLANO 10/13/2023 09:10:00 Final Observation Date Value Abnormality Reference (Units ) Status Magnesium 10/13/2023 09:10:00 2.1 1.5-2.6 (m g/dL) Final Performing Location [facility] - [address] [place] [address]
--- OUTSIDE RECORDS SUMMARY | 2023-10-29 02:52 | External Medical Summary ---
Author Name Unknown Address Unknown Organization [id number]:LABORATORY [facility] [place] [address] [place] [address] Laboratory Report Ordering Provider Test Date Status LUIS CARLOS BROWN 10/11/2023 06:41:00 Final Observation Date Value Abnormality Reference (Units ) Status Albumin 10/11/2023 06:41:00 3.3 Below low normal 3.8-5.0 (g/dL) Final AST (Aspartate aminotransferase) 10/11/2023 06:41:00 55 Above high normal 10-50 (U/L) Final Alk Phos 10/11/2023 06:41:00 101 35-130 (U/L) Final ALT (Alanine aminotransferase) 10/11/2023 06:41:00 129 Above high normal 10-50 (U/L) Final Bilirubin, Total 10/11/2023 06:41:00 1.0 <=1.2 (mg/dL) Final Bilirubin, Direct 10/11/2023 06:41:00 0.7 Above high normal 0.0-0.3 (mg/dL) Final Protein 10/11/2023 06:41:00 5.3 Below low normal 6.0-8.3 (g/dL) Final Performing Location LAB[facility]ORY [facility] [place] - [address] [place] [address]
--- OUTSIDE RECORDS SUMMARY | 2023-10-29 02:52 | External Medical Summary ---
Author Name Unknown Address Unknown Organization [id number] [address] [facility] [address] Laboratory Report Ordering Provider Test Date Status JEROME MENENDEZ 10/12/2023 14:37:00 Final Observation Date Value Abnormality Reference (Units ) Status WBC, Total 10/12/2023 14:37:00 10.14 4.00-10.80 (K/uL) Final RBC 10/12/2023 14:37:00 4.50 4.50-5.25 (M/uL) Final Hemoglobin 10/12/2023 14:37:00 14.1 14.0-16.8 (g/dL) Final HCT 10/12/2023 14:37:00 42.9 40.0-48.4 (%) Final MCV 10/12/2023 14:37:00 95.3 82.0-99.5 (fL) Final MCH 10/12/2023 14:37:00 31.3 27.0-34.0 (pg) Final MCHC 10/12/2023 14:37:00 32.9 32.0-36.0 (g/dL) Final RDW 10/12/2023 14:37:00 14.1 11.5-15.5 (%) Final Platelets 10/12/2023 14:37:00 200 140-400 (K/uL) Final MPV 10/12/2023 14:37:00 9.6 6.6-11.1 (fL) Final Nucleated erythrocytes/100 leukocytes [Ratio] in Blood by Automated count 10/12/2023 14:37:00 0 <=0 (/100 WBCs) Final Performing Location LABORATORY [facility] [place] - [address] [facility] [address]
--- OUTSIDE RECORDS SUMMARY | 2023-10-29 02:52 | External Medical Summary | Summary of Care ---
Author Name Unknown Organization [facility] Address [address] [place] [address] Phone [phone] Care Team Providers Care Slab Polisher Name Role Phone David Brush MD Primary Care Provider Encounter Details Date Type Department Care Team (Latest Contact Info) Description 10/08/2023 10:25 AM EST - 10/08/2023 5:29 PM EST Hospital Encounter Radiology Film File [address] [place] [address] Discharge Disposition: Home - Self Care Allergies No known active allergiesdocumented as of this encounter (statuses as of 10/13/2023) Medications Medication Sig Dispensed Refills Start Date End Date Status [employer] 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 158/82 Vitamin D deficiency 07/02/2009 018 Overview: Vitamin D 16.9 Diverticulosis of colon with hemorrhage 02/23/2008 08/31/2012 Overview: Admitted to [facility] with lower GI bleed Acute gastritis with [...] 2:30 PM EDT Office Visit Family Medicine [address] [place] [phone] Rebekah Giron [address] [place] [address] 02/28/2024 1:00 PM EDT Office Visit Cardiology [address] [place] [address] Frederick Buck PA-C [address] [place] [address] 07/04/2024 3:00 PM EDT Nurse Only Ancillary [address] [place] [address] [place], Nurse [address] [place] [address] Scheduled Procedures Name Priority Associated Diagnoses Date/Ti [...] encounter Medical Devices Implanted Type Area Director Of Solutions Architecture Device Identifier Shelf Expiration Date Model / Serial / Lot Lens Intraoc 21.5 - [id number] - [id number] Implanted:Qty: 1 on 05/27/2020 by Da Carter MD at OR [facility] Left: Eye [employer] 09/15/2024 [id number] / [id number] / Lens Intraoc 22.5 - [id number] - [id number] Implanted:Qty: 1 on 06/03/2020 by Da Carter MD at OR [facility] Right: Eye [employer]OM[employer] 09/15/2024 [id number] / [id number] / [id number] documented as of this encounter Procedures Procedure [...] study not interpreted or resulted by a [employer] or [employer] contracted radiologist. David Brush MD RADIOLOGY (RAD GENER AL) documented in this encounter Advance Directives Latest Code Status on File Code Status Date Activated Date Inactivated Comments Full Code 10/09/2023 1:18 PM Question Answer Comments Discussion of Advance Direct david occurred with: Patient Care Teams Slab Polisher Relationship Specialty Start Date End Date David Brush MD [address] [place] [address] [place] [address] PCP - General Family Medicine 07/22/15 documented as of this encounter
--- OUTSIDE RECORDS SUMMARY | 2023-10-29 02:52 | External Medical Summary ---
Author Name Unknown Address Unknown Organization K01:LABORATORY [place] [address] [place] [address] Laboratory Report Ordering Provider Test Date Status MABEL DE LEON 10/11/2023 06:41:00 Final Observation Date Value Abnormality Reference (Units ) Status WBC, Total 10/11/2023 06:41:00 7.08 4.00-10.80 (K/uL) Final RBC 10/11/2023 06:41:00 3.87 4.50-5.25 (M/uL) Final Hemoglobin 10/11/2023 06:41:00 12.2 Below low normal 14.0-16.8 (g/dL) Final HCT 10/11/2023 06:41:00 36.2 Below low normal 40.0-48.4 (%) Final MCV 10/11/2023 06:41:00 93.5 82.0-99.5 (fL) Final MCH 10/11/2023 06:41:00 31.5 27.0-34.0 (pg) Final MCHC 10/11/2023 06:41:00 33.7 32.0-36.0 (g/dL) Final RDW 10/11/2023 06:41:00 13.9 11.5-15.5 (%) Final Platelets 10/11/2023 06:41:00 155 140-400 (K/uL) Final MPV 10/11/2023 06:41:00 10.0 6.6-11.1 (fL) Final Nucleated erythrocytes/100 leukocytes [Ratio] in Blood by Automated count 10/11/2023 06:41:00 0 <=0 (/100 WBCs) Final Performing Location LABORATORY [facility] [place] - [address] [place] [address]
--- OUTSIDE RECORDS SUMMARY | 2023-10-29 02:52 | External Medical Summary ---
Author Name Unknown Address Unknown Organization K01:[place] [facility] [place] [facility] [address] [place] [address] Laboratory Report Ordering Provider Test Date Status JEROME MENENDEZ 10/11/2023 15:15:00 Final Observation Date Value Abnormality Reference (Units ) Status BUN 10/11/2023 15:15:00 26 Above high normal 6-20 (mg/dL) Final Creatinine 10/11/2023 15:15:00 1.2 0.6-1.2 (mg/dL) Final Glomerular filtration rate/1.73 sq M.predicted [Volume Rate/Area] in Serum, Plasma or Blood by Creatinine-based formula (CKD-EPI) 10/11/2023 15:15:00 61 >=60 (mL/min) Final eGFR is calculated based on the CKD-EPI 2020 equation SODIUM 10/11/2023 15:15:00 136 135-146 (m mol/L) Final Potassium 10/11/2023 15:15:00 3.6 3.5-5.1 (m mol/L) Final Cl 10/11/2023 15:15:00 102 98-107 (mm ol/L) Final CO2 10/11/2023 15:15:00 24 22-32 (mmo l/L) Final Anion gap 10/11/2023 15:15:00 10 7-15 (mmol /L) Final Glucose 10/11/2023 15:15:00 203 Above high normal 70 -120 (mg/dL) Final Calcium 10/11/2023 15:15:00 8.9 8.4-10.2 ( mg/dL) Final Performing Location LAB[facility]ORY [facility] [place] [address] [place] [address]
--- OUTSIDE RECORDS SUMMARY | 2023-10-29 02:52 | External Medical Summary ---
Author Name Unknown Address Unknown Organization K01:[place] [facility] [place] [facility] [address] [place] [address] Laboratory Report Ordering Provider Test Date Status MABEL DE LEON 10/12/2023 04:26:00 Final Observation Date Value Abnormality Reference (Units ) Status BUN 10/12/2023 04:26:00 25 Above high normal 6-20 (mg/dL) Final Creatinine 10/12/2023 04:26:00 1.2 0.6-1.2 (mg/dL) Final Glomerular filtration rate/1.73 sq M.predicted [Volume Rate/Area] in Serum, Plasma or Blood by Creatinine-based formula (CKD-EPI) 10/12/2023 04:26:00 58 Below low normal >=60 (mL/min) Final eGFR is calculated based on the CKD-EPI 2020 equation SODIUM 10/12/2023 04:26:00 141 135-146 (m mol/L) Final Potassium 10/12/2023 04:26:00 4.0 3.5-5.1 (m mol/L) Final Cl 10/12/2023 04:26:00 106 98-107 (mm ol/L) Final CO2 10/12/2023 04:26:00 26 22-32 (mmo l/L) Final Anion gap 10/12/2023 04:26:00 9 7-15 (mmol /L) Final Glucose 10/12/2023 04:26:00 136 Above high normal 70 -120 (mg/dL) Final Calcium 10/12/2023 04:26:00 8.6 8.4-10.2 ( mg/dL) Final Performing Location [facility] [place] [address] [place] [address]
--- OUTSIDE RECORDS SUMMARY | 2023-10-29 02:52 | External Medical Summary ---
Author Name Unknown Address Unknown Organization K01:LABORATORY [facility] [place] [facility] - [address] [place] [address] Laboratory Report Ordering Provider Test Date Status ANAIS MENENDEZPH 10/12/2023 05:17:00 Final Observation Date Value Abnormality Reference (Units ) Status ABO 10/12/2023 05:17:00 O Final RH 10/12/2023 05:17:00 Positive Final RED BLOOD CELL ANTIBODY SCREEN 10/12/2023 05:17:00 Negative Final SPECIMEN EXPIRATION DATE 10/12/2023 05:17:00 10/15/2023 23:59 Final Performing Location LABORATORY [facility] [place] [facility] - [address] [place] [address]
--- OUTSIDE RECORDS SUMMARY | 2023-10-29 02:52 | External Medical Summary ---
Author Name Unknown Address Unknown Organization : Laboratory Report Ordering Provider Test Date Status IZABELA LANTIGUA 10/11/2023 20:37:29 Final Observation Date Value Abnormality Reference (Units ) Status Glucose Point of Care 10/11/2023 20:37:29 161 Above high normal 70-120 (mg/dL) Final Performing Location
--- OUTSIDE RECORDS SUMMARY | 2023-10-29 02:52 | External Medical Summary ---
Author Name Unknown Address Unknown Organization : Laboratory Report Ordering Provider Test Date Status IZABELA LANTIGUA 10/12/2023 20:59:24 Final Observation Date Value Abnormality Reference (Units ) Status Glucose Point of Care 10/12/2023 20:59:24 218 Above high normal 70-120 (mg/dL) Final Performing Location
--- OUTSIDE RECORDS SUMMARY | 2023-10-29 02:52 | External Medical Summary ---
Author Name Unknown Address Unknown Organization K01:LABORATORY [facility] [place] - [address] [place] [address] Laboratory Report Ordering Provider Test Date Status LUIS CARLOS BROWN 10/13/2023 09:10:00 Final Observation Date Value Abnormality Reference (Units ) Status Albumin 10/13/2023 09:10:00 3.3 Below low normal 3.8-5.0 (g/dL) Final AST (Aspartate aminotransferase) 10/13/2023 09:10:00 48 10-50 (U/L) Final Alk Phos 10/13/2023 09:10:00 137 Above high normal 35-130 (U/L) Final ALT (Alanine aminotransferase) 10/13/2023 09:10:00 91 Above high normal 10-50 (U/L) Final Bilirubin, Total 10/13/2023 09:10:00 0.9 <=1.2 (mg/dL) Final Bilirubin, Direct 10/13/2023 09:10:00 0.4 Above high normal 0.0-0.3 (mg/dL) Final Protein 10/13/2023 09:10:00 5.7 Below low normal 6.0-8.3 (g/dL) Final Performing Location LABORATORY [facility] [place] - [address] [place] [address]
--- OUTSIDE RECORDS SUMMARY | 2023-10-29 02:52 | External Medical Summary ---
Author Name Unknown Address Unknown Organization K01:LABORATORY [facility] - [address] [place] [address] Laboratory Report Ordering Provider Test Date Status SPENCER SOLANO 10/11/2023 06:41:00 Final Observation Date Value Abnormality Reference (Units ) Status Phosphate 10/11/2023 06:41:00 2.8 2.5-4.8 (m g/dL) Final Performing Location LAB[facility] - [address] [place] [address]
--- OUTSIDE RECORDS SUMMARY | 2023-10-29 02:52 | External Medical Summary ---
Author Name Unknown Address Unknown Organization : Laboratory Report Ordering Provider Test Date Status IZABELA LANTIGUA 10/12/2023 12:34:01 Final Observation Date Value Abnormality Reference (Units ) Status Glucose Point of Care 10/12/2023 12:34:01 167 Above high normal 70-120 (mg/dL) Final Performing Location
--- OUTSIDE RECORDS SUMMARY | 2023-10-29 02:52 | External Medical Summary ---
Author Name Unknown Address Unknown Organization K01:LABORATORY [facility] [place] - [facility] [address] [place] [address] Laboratory Report Ordering Provider Test Date Status MABEL DE LEON 10/11/2023 06:41:00 Final Observation Date Value Abnormality Reference (Units ) Status BUN 10/11/2023 06:41:00 26 Above high normal 6-20 (mg/dL) Final Creatinine 10/11/2023 06:41:00 1.4 Above high normal 0.6-1.2 (mg/dL) Final Glomerular filtration rate/1.73 sq M.predicted [Volume Rate/Area] in Serum, Plasma or Blood by Creatinine-based formula (CKD-EPI) 10/11/2023 06:41:00 52 Below low normal >=60 (mL/min) Final eGFR is calculated based on the CKD-EPI 2020 equation SODIUM 10/11/2023 06:41:00 139 135-146 (m mol/L) Final Potassium 10/11/2023 06:41:00 4.1 3.5-5.1 (m mol/L) Final Cl 10/11/2023 06:41:00 104 98-107 (mm ol/L) Final CO2 10/11/2023 06:41:00 26 22-32 (mmo l/L) Final Anion gap 10/11/2023 06:41:00 9 7-15 (mmol /L) Final Glucose 10/11/2023 06:41:00 118 70-120 (mg /dL) Final Calcium 10/11/2023 06:41:00 8.5 8.4-10.2 ( mg/dL) Final Performing Location LABORATORY [facility] [place] - [address] [place] [address]
--- OUTSIDE RECORDS SUMMARY | 2023-10-29 02:52 | External Medical Summary ---
Author Name Unknown Address Unknown Organization : Laboratory Report Ordering Provider Test Date Status IZABELA LANTIGUA 10/12/2023 07:06:20 Final Observation Date Value Abnormality Reference (Units ) Status Glucose Point of Care 10/12/2023 07:06:20 131 Above high normal 70-120 (mg/dL) Final Performing Location
--- OUTSIDE RECORDS SUMMARY | 2023-10-29 02:52 | External Medical Summary ---
Author Name Unknown Address Unknown Organization K01:LABORATORY [facility] - [address] [place] [address] Laboratory Report Ordering Provider Test Date Status SPENCER SOLANO 10/12/2023 04:26:00 Final Observation Date Value Abnormality Reference (Units ) Status Magnesium 10/12/2023 04:26:00 2.1 1.5-2.6 (m g/dL) Final Performing Location LAB[facility] - [address] [place] [address]
--- OUTSIDE RECORDS SUMMARY | 2023-10-29 02:52 | External Medical Summary | Summary of Care ---
Author Name Unknown Organization [facility] Address [address] [place] [address] Phone [phone] Care Team Providers Care Paint Supervisor Name Role Phone David Brush MD Primary Care Provider [phone] Encounter Details Date Type Department Care Team (Late st Contact Info) Description 10/08/2023 Orders Only Family Medicine [address] [phone] David Brush MD [address] [place] [id number] Allergies No known active allergiesdocumented as of this encounter (statuses as of 10/12/2023) Medications Medication Sig Dispensed Refills Start Date End Date Status Eventable SYSTEM W/DEVICE KITIndications:DM type 2, goal A1c [...] A1c goal of less than 7.5% ([facility]) Use to test blood sugar [...] cecum GI (gastrointestinal bleed) 09/27/2016 09/05/2017 Overview: [facility] 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 158/82 Vitamin D deficiency 07/02/2009 018 Overview: Vitamin D 16.9 Diverticulosis of colon with hemorrhage 02/23/2008 08/31/2012 Overview: Admitted to [facility] with lower GI bleed Acute gastritis with [...] mRNA, LNP-s, No Pre serve, 2-Dose Series ([employer]) 10/06/2021,01/24/2021,01/03/2021 Pneumococcal Conjugate Vacc, 13 Valent (Prevnar) [...] 2:30 PM EDT Office Visit Family Medicine [address] [place] [phone] Rebekah Giron[address] [place] [address] 02/28/2024 1:00 PM EDT Office Visit Cardiology [address] [place] [address] Frederick Buck PA-C [address] [place] [address] 07/04/2024 3:00 PM EDT Nurse Only Ancillary [address] [place] [address] [place], Nurse Annual [address] [place] [address] Scheduled Procedures Name Priority Associated Diagnoses Date/Ti [...] this encounter Medical Devices Implanted Type Area Polymer Chemist Device Identifier Shelf Expiration Date Model / Serial / Lot Lens Intraoc 21.5 - [id number] - [id number] Implanted:Qty: 1 on 05/27/2020 by Da Carter MD at OR [facility] Left: Eye [employer] 09/15/2024 [id number] / [id number] / Lens Intraoc 22.5 - [id number] - [id number] Implanted:Qty: 1 on 06/03/2020 by Da Carter MD at OR [facility] Right: Eye [employer]OM[employer] 09/15/2024 [id number] / [id number] / [id number] documented as of this encounter Procedures Procedure [...] study not interpreted or resulted by a [employer] or [employer] contracted radiologist. David Brush MD RAD ULTRASOUND documented in this encounter Advance Directives Latest Code Status on File Code Status Date Activated Date Inactivated Comments Full Code 10/09/2023 1:18 PM Question Answer Comments Discussion of Advance Direct david occurred with: Patient Care Teams Paint Supervisor Relationship Specialty Start Date End Date David Brush MD [address] [place] [address] [place] [id number] PCP - General Family Medicine 07/22/15 documented as of this encounter
--- OUTSIDE RECORDS SUMMARY | 2023-10-29 02:52 | External Medical Summary ---
Author Name Unknown Address Unknown Organization : Laboratory Report Ordering Provider Test Date Status IZABELA LANTIGUA 10/11/2023 11:27:56 Final Observation Date Value Abnormality Reference (Units ) Status Glucose Point of Care 10/11/2023 11:27:56 145 Above high normal 70-120 (mg/dL) Final Performing Location
--- OUTSIDE RECORDS SUMMARY | 2023-10-29 02:52 | External Medical Summary ---
Author Name Unknown Address Unknown Organization K01:LABORATORY [facility] [address] [place] [address] Laboratory Report Ordering Provider Test Date Status SPENCER SOLANO 10/13/2023 09:10:00 Final Observation Date Value Abnormality Reference (Units ) Status Phosphate 10/13/2023 09:10:00 2.8 2.5-4.8 (m g/dL) Final Performing Location [facility] - [address] [place] [address]
--- OUTSIDE RECORDS SUMMARY | 2023-10-29 02:53 | External Medical Summary ---
Author Name Unknown Address Unknown Organization K01:LABORATORY [facility] - [address] [place] [address] Laboratory Report Ordering Provider Test Date Status SPENCER SOLANO 10/10/2023 07:37:00 Final Observation Date Value Abnormality Reference (Units ) Status Phosphate 10/10/2023 07:37:00 2.7 2.5-4.8 (m g/dL) Final Performing Location LAB[facility] - [address] [place] [address]
--- OUTSIDE RECORDS SUMMARY | 2023-10-29 02:53 | External Medical Summary | Summary of Care ---
Author Name Unknown Organization [facility] Address [address] [place] [address] Phone [phone] Care Team Providers Care Asphalt Machine Operator Name Role Phone David Brush MD Primary Care Provider Encounter Details Date Type Department Care Team (Late st Contact Info) Description 10/10/2023 Population Health External Data Unspecified Department Allergies No known active allergiesdocumented as of this encounter (statuses as of 10/10/2023) Medications Medication Sig Dispensed Refills Start Date End Date Status [facility] SYSTEM W/DEVICE KITIndications:DM type 2, goal A1c [...] as of this encounter (statuses as of 10/10/2023) Active Problems Problem Noted Date Diagnosed Date [...] as of this encounter (statuses as of 10/10/2023) Resolved Problems Problem Noted Date Diagnosed Date [...] cecum GI (gastrointestinal bleed) 09/27/2016 09/05/2017 Overview: [facility] 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 158/82 Vitamin D deficiency 07/02/2009 018 Overview: Vitamin D 16.9 Diverticulosis of colon with hemorrhage 02/23/2008 08/31/2012 Overview: Admitted to [place] with lower GI bleed Acute gastritis with [...] as of this encounter (statuses as of 10/10/2023) Immunizations Name Administration Dates Next Due COVID-19 [...] No 10/09/2023 documented as of this encounter Plan of Treatment Upcoming Encounters Date Type Department Care Team (Late st Contact Info) Description 01/10/2024 2:30 PM EDT Office Visit Family Medicine [address] [place] [phone] [address] [place] [address] 02/28/2024 1:00 PM EDT Office Visit Cardiology [address] [place] [address] Frederick Buck PA-C [address] [place] [address] 07/04/2024 3:00 PM EDT Nurse Only Ancillary [address] [place] [address] [place], Nurse Annual [address] [place] [address] Scheduled Procedures Name Priority Associated Diagnoses Date/Ti [...] 07/19/2019, 07/19/2019, 10/21/2016, Additional history exists GFR 10/09/2024 10/09/2023, 06/18, 03/11/2023, Additional history exists Pneumococcal Vaccine: 65+ Years [...] this encounter Medical Devices Implanted Type Area Superannuation Funds Manager Device Identifier Shelf Expiration Date Model / Serial / Lot Lens Intraoc 21.5 - [id number] - [id number] Implanted:Qty: 1 on 05/27/2020 by Da Carter MD at [facility] Left: Eye [employer]OM[employer] 09/15/2024 [id number] / [id number] / Lens Intraoc 22.5 - [id number] - [id number] Implanted:Qty: 1 on 06/03/2020 by Da Carter MD at [facility] Right: Eye [employer]CH [employer] LOMB 09/15/2024 [id number] / [id number] / [id number] documented as of this encounter Advance Directives Latest Code Status on File Code Status Date Activated Date Inactivated Comments Full Code 10/09/2023 1:18 PM Question Answer Comments Discussion of Advance Direct david occurred with: Patient Care Teams Asphalt Machine Operator Relationship Specialty Start Date End Date David Brush MD [address] [place] [address] [place] [address] PCP - General Family Medicine 07/22/15 documented as of this encounter
--- OUTSIDE RECORDS SUMMARY | 2023-10-29 02:53 | External Medical Summary ---
Author Name Unknown Address Unknown Organization [id number]:[place] [place] [address] [address] Laboratory Report Ordering Provider Test Date Status SPENCER SOLANO 10/10/2023 07:37:00 Final Observation Date Value Abnormality Reference (Units ) Status Lactic Acid 10/10/2023 07:37:00 1.4 0.4-2.0 (mmol/L) Final Performing Location LABORATORY C - [address] [place] [address]
--- OUTSIDE RECORDS SUMMARY | 2023-10-29 02:53 | External Medical Summary ---
Author Name Unknown Address Unknown Organization [id number]:[place] [facility] [place] [facility] [address] [place] [address] Laboratory Report Ordering Provider Test Date Status MABEL DE LEON 10/10/2023 07:37:00 Final Observation Date Value Abnormality Reference (Units ) Status BUN 10/10/2023 07:37:00 23 Above high normal 6-20 (mg/dL) Final Creatinine 10/10/2023 07:37:00 1.3 Above high normal 0.6-1.2 (mg/dL) Final Glomerular filtration rate/1.73 sq M.predicted [Volume Rate/Area] in Serum, Plasma or Blood by Creatinine-based formula (CKD-EPI) 10/10/2023 07:37:00 55 Below low normal >=60 (mL/min) Final eGFR is calculated based on the CKD-EPI 2020 equation SODIUM 10/10/2023 07:37:00 137 135-146 (m mol/L) Final Potassium 10/10/2023 07:37:00 3.7 3.5-5.1 (m mol/L) Final Cl 10/10/2023 07:37:00 103 98-107 (mm ol/L) Final CO2 10/10/2023 07:37:00 24 22-32 (mmo l/L) Final Anion gap 10/10/2023 07:37:00 10 7-15 (mmol /L) Final Glucose 10/10/2023 07:37:00 134 Above high normal 70 -120 (mg/dL) Final Calcium 10/10/2023 07:37:00 8.2 Below low normal 8.4 -10.2 (mg/dL) Final Performing Location [place] [facility] [place] [address] [place] [address]
--- OUTSIDE RECORDS SUMMARY | 2023-10-29 02:53 | External Medical Summary ---
Author Name Unknown Address Unknown Organization [id number]:[facility] [place] [address] [facility] [place] [address] Laboratory Report Ordering Provider Test Date Status LUIS CARLOS BROWN 10/09/2023 20:36:00 Final Observation Date Value Abnormality Reference (Units ) Status Lactic Acid 10/09/2023 20:36:00 2.0 0.4-2.0 (mmol/L) Final Performing Location [facility] [place] [address] [facility] [address]
--- OUTSIDE RECORDS SUMMARY | 2023-10-29 02:53 | External Medical Summary ---
Author Name Unknown Address Unknown Organization [id number]:[facility]ATORY [facility] [place] [facility] - [address] [place] [address] Laboratory Report Ordering Provider Test Date Status MABEL DE LEON 10/09/2023 13:46:00 Final Observation Date Value Abnormality Reference (Units ) Status ABO 10/09/2023 13:46:00 O Final RH 10/09/2023 13:46:00 Positive Final RED BLOOD CELL ANTIBODY SCREEN 10/09/2023 13:46:00 Negative Final SPECIMEN EXPIRATION DATE 10/09/2023 13:46:00 10/12/2023 23:59 Final Performing Location LABORATORY [facility] - [address] [place] [address]
--- OUTSIDE RECORDS SUMMARY | 2023-10-29 02:53 | External Medical Summary ---
Author Name Unknown Address Unknown Organization [id number]:[place] [facility] [place] [facility] [address] [place] [address] Laboratory Report Ordering Provider Test Date Status MABEL DE LEON 10/09/2023 13:46:00 Final Observation Date Value Abnormality Reference (Units ) Status BUN 10/09/2023 13:46:00 18 6-20 (mg/dL) Final Creatinine 10/09/2023 13:46:00 1.2 0.6-1.2 (mg/dL) Final Glomerular filtration rate/1.73 sq M.predicted [Volume Rate/Area] in Serum, Plasma or Blood by Creatinine-based formula (CKD-EPI) 10/09/2023 13:46:00 59 Below low normal >=60 (mL/min) Final eGFR is calculated based on the CKD-EPI 2020 equation SODIUM 10/09/2023 13:46:00 132 Below low normal 135 -146 (mmol/L) Final Potassium 10/09/2023 13:46:00 4.7 3.5-5.1 (m mol/L) Final Cl 10/09/2023 13:46:00 100 98-107 (mm ol/L) Final CO2 10/09/2023 13:46:00 22 22-32 (mmo l/L) Final Anion gap 10/09/2023 13:46:00 10 7-15 (mmol /L) Final Glucose 10/09/2023 13:46:00 197 Above high normal 70 -120 (mg/dL) Final Calcium 10/09/2023 13:46:00 8.2 Below low normal 8.4 -10.2 (mg/dL) Final Performing Location [facility] [place] [address] [place] [address]
--- OUTSIDE RECORDS SUMMARY | 2023-10-29 02:53 | External Medical Summary ---
Author Name Unknown Address Unknown Organization K01:LAB[facility]ATORY [facility] [place] - [address] [address] Laboratory Report Ordering Provider Test Date Status MABEL DE LEON 10/09/2023 13:46:00 Final Observation Date Value Abnormality Reference (Units ) Status Phosphate 10/09/2023 13:46:00 2.2 Below low normal 2.5 -4.8 (mg/dL) Final Performing Location [facility] - [address] [place] [address]
--- OUTSIDE RECORDS SUMMARY | 2023-10-29 02:53 | External Medical Summary ---
Author Name Unknown Address Unknown Organization : Laboratory Report Ordering Provider Test Date Status IZABELA LANTIGUA 10/09/2023 18:54:54 Final Observation Date Value Abnormality Reference (Units ) Status Glucose Point of Care 10/09/2023 18:54:54 123 Above high normal 70-120 (mg/dL) Final Performing Location
--- OUTSIDE RECORDS SUMMARY | 2023-10-29 02:53 | External Medical Summary ---
Author Name Unknown Address Unknown Organization K01:[facility] [place] [address] [place] [address] Laboratory Report Ordering Provider Test Date Status MABEL DE LEON 10/09/2023 13:46:00 Final Observation Date Value Abnormality Reference (Units ) Status ABO 10/09/2023 13:46:00 O Final RH 10/09/2023 13:46:00 Positive Final Performing Location [facility] - [address] [place] [address]
--- OUTSIDE RECORDS SUMMARY | 2023-10-29 02:53 | External Medical Summary ---
Author Name Unknown Address Unknown Organization K01:LAB[facility]ATORY [place] [address] [place] [address] Laboratory Report Ordering Provider Test Date Status MABEL DE LEON 10/10/2023 07:37:00 Final Observation Date Value Abnormality Reference (Units ) Status WBC, Total 10/10/2023 07:37:00 7.24 4.00-10.80 (K/uL) Final RBC 10/10/2023 07:37:00 3.85 4.50-5.25 (M/uL) Final Hemoglobin 10/10/2023 07:37:00 11.9 Below low normal 14.0-16.8 (g/dL) Final HCT 10/10/2023 07:37:00 35.8 Below low normal 40.0-48.4 (%) Final MCV 10/10/2023 07:37:00 93.0 82.0-99.5 (fL) Final MCH 10/10/2023 07:37:00 30.9 27.0-34.0 (pg) Final MCHC 10/10/2023 07:37:00 33.2 32.0-36.0 (g/dL) Final RDW 10/10/2023 07:37:00 13.9 11.5-15.5 (%) Final Platelets 10/10/2023 07:37:00 140 140-400 (K/uL) Final MPV 10/10/2023 07:37:00 10.4 6.6-11.1 (fL) Final Nucleated erythrocytes/100 leukocytes [Ratio] in Blood by Automated count 10/10/2023 07:37:00 0 <=0 (/100 WBCs) Final Performing Location LABORATORY [facility] [place] - [address] [place] [address]
--- OUTSIDE RECORDS SUMMARY | 2023-10-29 02:53 | External Medical Summary ---
Author Name Unknown Address Unknown Organization K01:LAB[facility]ATORY [facility] [place] [facility] [address] [place] [address] Laboratory Report Ordering Provider Test Date Status LUIS CARLOS BROWN 10/09/2023 13:46:00 Final Observation Date Value Abnormality Reference (Units ) Status Albumin 10/09/2023 13:46:00 3.2 Below low normal 3.8-5.0 (g/dL) Final AST (Aspartate aminotransferase) 10/09/2023 13:46:00 279 Above high normal 10-50 (U/L) Final Alk Phos 10/09/2023 13:46:00 99 35-130 (U/L) Final ALT (Alanine aminotransferase) 10/09/2023 13:46:00 228 Above high normal 10-50 (U/L) Final Bilirubin, Total 10/09/2023 13:46:00 3.1 Above high normal <=1.2 (mg/dL) Final Bilirubin, Direct 10/09/2023 13:46:00 2.8 Above high normal 0.0-0.3 (mg/dL) Final Protein 10/09/2023 13:46:00 5.6 Below low normal 6.0-8.3 (g/dL) Final Performing Location LABORATORY [facility] [place] - [address] [place] [address]
--- OUTSIDE RECORDS SUMMARY | 2023-10-29 02:53 | External Medical Summary ---
Author Name Unknown Address Unknown Organization : Laboratory Report Ordering Provider Test Date Status IZABELA LANTIGUA 10/09/2023 23:59:07 Final Observation Date Value Abnormality Reference (Units ) Status Glucose Point of Care 10/09/2023 23:59:07 128 Above high normal 70-120 (mg/dL) Final Performing Location
--- OUTSIDE RECORDS SUMMARY | 2023-10-29 02:53 | External Medical Summary ---
Author Name Unknown Address Unknown Organization K01:LABORATORY [facility] [place] - [facility] [address] [facility] [address] [facility] [address] Laboratory Report Ordering Provider Test Date Status SPENCER SOLANO 10/09/2023 13:46:00 Final Observation Date Value Abnormality Reference (Units ) Status HbA1C 10/09/2023 13:46:00 6.7 Above high normal 4. 0-5.6 (%) Final The use of HbA1c to monitor glycemic status is based on normal hemoglobin and HbA composition. This test should not be used in patients with abnormal hemoglobin that affects the half life of the red blood cell or the in vivo glycation rates. Glucose, estimated average 10/09/2023 13:46:00 146 Above high normal <126 (mg/dL) Robert novoa Performing Location LABORATORY [facility] [place] - [address] [facility] [address]
--- OUTSIDE RECORDS SUMMARY | 2023-10-29 02:53 | External Medical Summary | Summary of Care ---
Author Name Unknown Organization [facility] Address [address] [place] [address] Phone [phone] Care Team Providers Care General Internal Medicine Doctor Name Role Phone David Brush MD Primary Care Provider Reason for Visit * Reason Comments Retrieval Encounter Details Date Type Department Care Team (Late st Contact Info) Description 10/09/2023 9:40 AM EST Documentation [facility] [place] [address] [place] [address] 2, [facility] [address] [place] [address] Cholecystitis* Allergies No known active allergiesdocumented as of this encounter (statuses as of 10/09/2023) Medications Medication Sig Dispensed Refills Start Date End Date Status [employer] SYSTEM W/DEVICE KITIndications:DM type 2, goal A1c [...] as of this encounter (statuses as of 10/09/2023) Active Problems Problem Noted Date Diagnosed Date [...] as of this encounter (statuses as of 10/09/2023) Resolved Problems Problem Noted Date Diagnosed Date [...] GI (gastrointestinal bleed) 09/27/2016 09/05/2017 Overview: [facility] 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 158/82 Vitamin D deficiency 07/02/2009 018 Overview: Vitamin D 16.9 Diverticulosis of colon with hemorrhage 02/23/2008 08/31/2012 Overview: Admitted to [place] with lower GI bleed Acute gastritis with [...] as of this encounter (statuses as of 10/09/2023) Immunizations Name Administration Dates Next Due COVID-19 [...] as of this encounter Progress Notes * Cherelle Chong, DARIUS - 10/09/2023 2:32 PM EST MEDICARE AMBULANCE INFORMATION SHEET Patient Admitted as an Inpatient: yes Certifying Physician/Ordering Service:[facility] ED Physician - Dilan Batres M.D. [facility] [address] [place] [address] Point of Geophysics Scientist (zip code required): [facility] - [address]; [place] [address] Destination (Specify Name/Address): [facility] - [address]; [place] [address] Patient transported to nearest facility (capable of mgmt for Pt's condition): YES Total number of Loaded Miles: 80.6 miles Mode of Transport: Ground ALS1 ALS Assessment ([employer]) IV ALS Medication Completed by: Cherelle Chong RN documented in this encounter Plan of Treatment Upcoming Encounters Date Type Department Care Team (Late st Contact Info) Description 01/10/2024 2:30 PM EDT Office Visit Family Medicine [address] [place] [phone] Rebekah Giron, [address] [place] [address] 02/28/2024 1:00 PM EDT Office Visit Cardiology [address] [place] [address] Frederick Buck PA-C [address] [place] [address] 07/04/2024 3:00 PM EDT Nurse Only Ancillary [address] [place] [address] [place], Nurse Annual [address] [place] [address] Scheduled Procedures Name Priority Associated Diagnoses Date/Ti [...] this encounter Medical Devices Implanted Type Area Long Haul Truck Driver Device Identifier Shelf Expiration Date Model / Serial / Lot Lens Intraoc 21.5 - [id number] - [id number] Implanted:Qty: 1 on 05/27/2020 by Da Carter MD at [facility] Left: Eye [employer] LOMB 09/15/2024 [id number] / [id number] / Lens Intraoc 22.5 - [id number] - [id number] Implanted:Qty: 1 on 06/03/2020 by Da Carter MD at [facility] Right: Eye BAUSCH [employer] LOMB 09/15/2024 [id number] / [id number] / [id number] documented as of this encounter Visit Diagnoses Diagnosis Cholecystitis- Primary Cholecystitis, unspecified documented in this encounter Advance Directives Latest Code Status on File Code Status Date Activated Date Inactivated Comments Full Code 10/09/2023 1:18 PM Question Answer Comments Discussion of Advance Direct david occurred with: Patient Care Teams General Internal Medicine Doctor Relationship Specialty Start Date End Date David Brush MD [address] [place] [address] [place] [phone] PCP - General Family Medicine 07/22/15 documented as of this encounter
--- OUTSIDE RECORDS SUMMARY | 2023-10-29 02:53 | External Medical Summary ---
Author Name Unknown Address Unknown Organization K01:LABORATORY [facility] [place] - [facility]note 3] [address] [place] [address] Laboratory Report Ordering Provider Test Date Status MABEL DE LEON 10/09/2023 13:46:00 Final Warfarin Therapy
INR: 2 .0-3.0 conventional anticoagulation
INR: 2.5- 3.5 high intensity anticoagulation Observation Date Value Abnormality Reference (Units ) Status PT 10/09/2023 13:46:00 14.7 11.6-15.2 (seconds) Final INR 10/09/2023 13:46:00 1.1 0.8-1.2 Final Performing Location LABORATORY [facility] [place] - [address] [place] [address]
--- OUTSIDE RECORDS SUMMARY | 2023-10-29 02:53 | External Medical Summary ---
Author Name Unknown Address Unknown Organization K01:LABORATORY [facility] - [address] [place] [address] Laboratory Report Ordering Provider Test Date Status MECHELLE DE LEONGanesh 10/09/2023 13:46:00 Final Observation Date Value Abnormality Reference (Units ) Status Magnesium 10/09/2023 13:46:00 2.4 1.5-2.6 (m g/dL) Final Performing Location LAB[facility]ORY [facility] - [address] [place] [address]
--- OUTSIDE RECORDS SUMMARY | 2023-10-29 02:53 | External Medical Summary ---
Author Name Unknown Address Unknown Organization : Laboratory Report Ordering Provider Test Date Status IZABELA LANTIGUA 10/10/2023 06:16:10 Final Observation Date Value Abnormality Reference (Units ) Status Glucose Point of Care 10/10/2023 06:16:10 129 Above high normal 70-120 (mg/dL) Final Performing Location
--- OUTSIDE RECORDS SUMMARY | 2023-10-29 02:53 | External Medical Summary ---
Author Name Unknown Address Unknown Organization K01:[facility] [place] [facility] [address] [place] [address] Laboratory Report Ordering Provider Test Date Status MABEL DE LEON 10/09/2023 13:46:00 Final Observation Date Value Abnormality Reference (Units ) Status WBC, Total 10/09/2023 13:46:00 13.02 Above high normal 4.00-10.80 (K/uL) Final RBC 10/09/2023 13:46:00 3.92 4.50-5.25 (M/uL) Final Hemoglobin 10/09/2023 13:46:00 12.3 Below low normal 14.0-16.8 (g/dL) Final HCT 10/09/2023 13:46:00 36.0 Below low normal 40.0-48.4 (%) Final MCV 10/09/2023 13:46:00 91.8 82.0-99.5 (fL) Final MCH 10/09/2023 13:46:00 31.4 27.0-34.0 (pg) Final MCHC 10/09/2023 13:46:00 34.2 32.0-36.0 (g/dL) Final RDW 10/09/2023 13:46:00 13.5 11.5-15.5 (%) Final Platelets 10/09/2023 13:46:00 142 140-400 (K/uL) Final MPV 10/09/2023 13:46:00 10.4 6.6-11.1 (fL) Final Nucleated erythrocytes/100 leukocytes [Ratio] in Blood by Automated count 10/09/2023 13:46:00 0 <=0 (/100 WBCs) Final Performing Location LABOR[facility]ORY [facility] [place] [address] [place] [address]
--- OUTSIDE RECORDS SUMMARY | 2023-10-29 02:53 | External Medical Summary ---
Author Name Unknown Address Unknown Organization K01:LABORATORY [place] [address] [facility] [address] Laboratory Report Ordering Provider Test Date Status MABEL DE LEON 10/10/2023 07:37:00 Final Observation Date Value Abnormality Reference (Units ) Status Calcium.ionized [Moles/volume] in Serum or Plasma by Ion-selective membrane electrode (ISE) 10/10/2023 07:37:00 1.14 1.13-1.32 (mmol/L) Final This test was developed and its performance characteristics dtermined by [employer]. It has not been cleared or approved by the [place] Food and Drug Administration Performing Location LABORATORY [place] [address] [address] [facility] [address]
--- OUTSIDE RECORDS SUMMARY | 2023-10-29 02:53 | External Medical Summary ---
Author Name Unknown Address Unknown Organization : Laboratory Report Ordering Provider Test Date Status IZABELA LANTIGUA 10/10/2023 17:13:21 Final Observation Date Value Abnormality Reference (Units ) Status Glucose Point of Care 10/10/2023 17:13:21 94 70-120 (mg/dL) Final Performing Location
--- OUTSIDE RECORDS SUMMARY | 2023-10-29 02:53 | External Medical Summary ---
Author Name Unknown Address Unknown Organization K01:LABORATORY [facility] - [address] [place] [address] Laboratory Report Ordering Provider Test Date Status SPENCER SOLANO 10/10/2023 07:37:00 Final Observation Date Value Abnormality Reference (Units ) Status Magnesium 10/10/2023 07:37:00 2.6 1.5-2.6 (m g/dL) Final Performing Location LAB[facility]ORY [facility] - [address] [place] [address]
--- OUTSIDE RECORDS SUMMARY | 2023-10-29 02:53 | External Medical Summary ---
Author Name Unknown Address Unknown Organization K01:LABORATORY [facility] [place] - [address] [address] Laboratory Report Ordering Provider Test Date Status MABEL DE LEON 10/09/2023 13:46:00 Final Observation Date Value Abnormality Reference (Units ) Status Lactic Acid 10/09/2023 13:46:00 2.3 Above high normal 0.4-2.0 (mmol/L) Final Performing Location LAB[facility] - [address] [place] [address]
--- OUTSIDE RECORDS SUMMARY | 2023-10-29 02:53 | External Medical Summary ---
Author Name Unknown Address Unknown Organization K01:LABORATORY [facility] [place] - [address] [address] Laboratory Report Ordering Provider Test Date Status LUIS CARLOS BROWN 10/10/2023 07:37:00 Final Observation Date Value Abnormality Reference (Units ) Status Albumin 10/10/2023 07:37:00 3.1 Below low normal 3.8-5.0 (g/dL) Final AST (Aspartate aminotransferase) 10/10/2023 07:37:00 161 Above high normal 10-50 (U/L) Final Alk Phos 10/10/2023 07:37:00 97 35-130 (U/L) Final ALT (Alanine aminotransferase) 10/10/2023 07:37:00 197 Above high normal 10-50 (U/L) Final Bilirubin, Total 10/10/2023 07:37:00 1.8 Above high normal <=1.2 (mg/dL) Final Bilirubin, Direct 10/10/2023 07:37:00 1.4 Above high normal 0.0-0.3 (mg/dL) Final Protein 10/10/2023 07:37:00 5.5 Below low normal 6.0-8.3 (g/dL) Final Performing Location LABORATORY [facility] [place] - [address] [place] [address]
[2023-10-29] MEDS ORDERED: CARBOHYDRATES FOR HYPOGLYCEMIA PO PRN (04:02)
[2023-10-29] MEDS ORDERED: GLUCAGON FOR INJ 1 MG VIAL SQ PRN (04:02)
[2023-10-29] MEDS ORDERED: DEXTROSE 50% 50 ML SYRINGE IV PRN (04:02)
[2023-10-29] MEDS ORDERED: GLUCOSE 10 TAB/TUBE PO PRN (04:02)
[2023-10-29] MEDS ORDERED: GLUCOSE 40% GEL 15 GM TUBE PO PRN (04:02)
[2023-10-29] MEDS: ACETAMINOPHEN 500 MG TAB PO PRN ×2 (04:24→20:43)
[2023-10-29] MEDS: PIPERACILLIN/TAZOBACTAM 4.5 GM in DEXTROSE 5% MINI-B 100 ML IV SCH ×3 (06:10→21:40)
[2023-10-29] MEDS: INSULIN ASPART PER UNIT CHARGE SC SCH ×5 (06:10→20:39)
--- NOTE | 2023-10-29 10:15 | Communication Note ---
Date of Service: October 29, 2023 Came by to see patient but off the floor. I will see later today or in morning on rounds. If he gets MRCP and needs ERCP urgently he will need transfer
--- NOTE | 2023-10-29 10:18 | Surgery Consultation ---
Date of Consultation October 29, 2023 Assessment & Plan (1) Elevated LFTs: agree with MRCP possible retained CBD stone fluid collection likely not abscess, agree with abx no surgical issues History of Present Illness Attending Physician: Shaunna Bravo MD History of Present Illness This 83-year-old male admitted through the ED for evaluation of fever, diarrhea and abdominal pain. The pain and fevers have resolved. He s/p lap jose m and drain which was recently removed. He has complained of weakness and anorexia. A CT scan shows a likely post-op fluid collection, doubt abscess, 4cm. His LFTs are elevated but WBC is normal. Allergies Allergy/AdvReac Type Severity Reaction Status Date / Time bee venom protein (honey bee) Allergy Unknown Unverified 03/11/22 20:33 Home Medications Medication Instructions Recorded Confirmed Type citalopram 20 mg tablet 20 mg PO QAM 12/30/18 10/28/23 History tamsulosin 0.4 mg capsule 0.8 mg PO QAM 12/30/18 10/28/23 History atorvastatin 40 mg tablet 40 mg PO HS #30 tabs 01/01/19 10/28/23 Rx cholecalciferol (vitamin D3) 25 50 mcg PO DAILY 09/22/21 10/28/23 History mcg (1,000 unit) tablet pantoprazole 40 mg tablet,delayed 40 mg PO QAM #30 tabs 09/24/21 10/28/23 Rx release clopidogrel 75 mg tablet 75 mg PO QAM 03/11/22 10/28/23 History glucosam 750 mg-chondroi 100 2 tab PO DAILY 03/11/22 10/28/23 History mg-hyalur 1.65 mg-CF borate 108 mg tablet ([facility]) aspirin 81 mg tablet,delayed 81 mg PO QAM 30 days #30 tabs 03/14/22 10/28/23 Rx release albuterol sulfate 90 mcg/actuation 2 puff inhalation Q4H PRN Wheezing 10/08/23 10/28/23 History aerosol inhaler benazepril 10 mg tablet 10 mg PO QAM 10/08/23 10/28/23 History gabapentin 100 mg capsule 100 mg PO TID 10/08/23 10/28/23 History magnesium oxide 400 mg (241.3 mg 400 mg PO DAILY 10/08/23 10/28/23 History magnesium) tablet metformin 500 mg tablet,extended 1,000 mg PO AMPM 10/08/23 10/28/23 History release 24 hr Patient History Medical History 1st degree AV block PAT (paroxysmal atrial tachycardia) GERD without esophagitis Acute CVA (cerebrovascular accident) Thrombosis of left vertebral artery HTN (hypertension) DMII (diabetes mellitus, type 2) Acute hypoxemic respiratory failure Diverticulitis Depression HLD (hyperlipidemia) BPH (benign prostatic hyperplasia) PUD (peptic ulcer disease) UGIB (upper gastrointestinal bleed) PNA (pneumonia) Asthma Surgical History History of cataract surgery History of colonoscopy with polypectomy History of esophagogastroduodenoscopy (EGD) Family History Father , 71 Heart disease Mother Alzheimer disease Parkinsons disease Social History Smoking Status: Former smoker Tobacco Type: Cigarettes Second Hand Exposure: No; Do You Dip or Chew Tobacco: No; Hx Alcohol Use: No Hx Substance Use: No Preferred Language: Mongolian Communication Ability: Effective Hearing Ability: Hard of Hearing Speech And Drama Teacher Required: No Beliefs That Will Affect Care: None marital status: Current Living Situation: Alone Current Living Situation Comment: son and sons check in on him current occupational status: retired Feels Safe at Home: Yes Safety Concerns: Feels Safe At This Time Assistive Devices: Cane and Walker Review of Systems Constitutional: + fever, + chills, + weakness and + anor exia Eyes: no problem reported Ear, Nose, Mouth, Throat: no problem reported Respiratory: no cough and no dyspnea Cardiovascular: no chest pain Gastrointestinal: + nausea; no abdominal pain and no vomit ing Genitourinary: no dysuria Musculoskeletal: + back pain Integumentary: no change in skin color Neurologic: + generalized weakness; no localized wea kness Psychiatric: no behavioral changes Endocrine: + fatigue Hematologic / Lymphatic: no easy bleeding and no easy bruising Physical Exam Constitutional: WD/WN, vitals as above Eyes: PERRL, conjunctivae normal, anicteric sclerae ENMT: external ear and nose normal, oropharynx normal Neck: trachea midline Respiratory: normal respiratory effort, lungs clear to auscultation Cardiovascular: RRR, no murmur, no edema Gastrointestinal (Abdomen): Inspection/Auscultation: abdomen normal to inspection and normal bowel sounds; abdomen not distended Perc ussion/Palpation: abdomen soft; abdomen nontender, no guarding and abdomen not rigid Musculoskeletal: Head/Neck/Chest: normocephalic and head atraumatic Skin: no rashes, warm and dry Results & Data Vital Signs (Past 12 Hours) Vital Signs Temp Pulse Pulse Pulse Resp BP BP 10/29/23 07:56 37.5 C 68 16 155/66 H 10/29/23 04:25 59 L 10/29/23 04:02 36.6 C 75 16 122/75 10/29/23 04:00 10/29/23 02:30 60 15 10/29/23 02:00 68 19 141/92 H 10/29/23 01:30 61 23 10/29/23 01:29 64 24 134/70 10/29/23 01:00 58 L 22 125/67 10/29/23 00:30 68 22 130/84 10/29/23 00:00 66 22 122/71 10/28/23 23:55 61 15 115/67 10/28/23 23:30 60 12 10/28/23 23:00 60 10/28/23 23:00 60 16 Pulse Ox O2 Del Method 10/29/23 07:56 96 Room Air 10/29/23 04:25 10/29/23 04:02 96 Room Air 10/29/23 04:00 Room Air 10/29/23 02:30 96 Room Air 10/29/23 02:00 10/29/23 01:30 94 Room Air 10/29/23 01:29 95 Room Air 10/29/23 01:00 10/29/23 00:30 94 Room Air 10/29/23 00:00 94 Room Air 10/28/23 23:55 95 Room Air 10/28/23 23:30 96 Room Air 10/28/23 23:00 10/28/23 23:00 94 Room Air Diagnostic Findings EXAM: CT Abdomen and Pelvis With Intravenous Contrast CLINICAL HISTORY: Reason for exam: fever, abd pain, recent GB removal. TECHNIQUE: Axial computed tomography images of the abdomen and pelvis with intravenous contrast. CTDI is 27.5 mGy and DLP is 2251.85 mGy-cm. Automated exposure control was utilized for the study. A dose lowering technique was utilized adhering to the principles of ALARA. CONTRAST: Patient received 118 cc opti 320 of IV contrast COMPARISON: No relevant prior studies available. FINDINGS: Lung bases: Unremarkable. No mass. No consolidation. ABDOMEN: Liver: Unremarkable. No mass. Gallbladder and bile ducts: 4.0 x 2.4 x 3.3 cm rim-enhancing postoperative rim-enhancing fluid collection in the gallbladder fossa. Status post cholecystectomy. No ductal dilation. Pancreas: Unremarkable. No mass. No ductal dilation. Spleen: Unremarkable. No splenomegaly. Adrenals: Unremarkable. No mass. Kidneys and ureters: Bilateral simple renal cysts measuring up to 2.1 cm in the lower pole of the right kidney. No further workup is required. No hydronephrosis. Stomach and bowel: Severe colonic diverticulosis without evidence of diverticulitis. No obstruction. PELVIS: Appendix: No findings to suggest acute appendicitis. Bladder: Unremarkable. No mass. Reproductive: Unremarkable as visualized. ABDOMEN and PELVIS: Intraperitoneal space: Unremarkable. No free air. No significant fluid collection. Bones/joints: No acute fracture. No dislocation. Soft tissues: Unremarkable. Vasculature: Unremarkable. No abdominal aortic aneurysm. Lymph nodes: Unremarkable. No enlarged lymph nodes. IMPRESSION: 4.0 x 2.4 x 3.3 cm rim-enhancing postoperative rim-enhancing fluid collection in the gallbladder fossa.
[2023-10-29] MEDS: ASPIRIN 81 MG ECTAB PO SCH (11:10)
[2023-10-29] MEDS: ENALAPRIL MALEATE 10 MG TAB PO SCH (11:10)
[2023-10-29] MEDS: CITALOPRAM 20 MG TAB PO SCH (11:10)
[2023-10-29] MEDS: GABAPENTIN 100 MG CAP PO SCH ×3 (11:10→20:40)
[2023-10-29] MEDS: TAMSULOSIN HCL 0.4 MG CAP PO SCH (11:11)
[2023-10-29] MEDS: PANTOprazole 40 MG TAB PO SCH (11:11)
--- NOTE | 2023-10-29 12:19 | Magnetic Resonance Report ---
MRCP CLINICAL HISTORY: Elevated hepatic transaminases. Recent cholecystectomy. COMPARISON STUDY: Abdominal CT dated 10/28/2023. TECHNIQUE: Abdominal MRCP was performed utilizing various T2-weighted sequences in the axial and jolie nal planes. 3-D reformats were created and assessed. IV contrast was not administered for this examin ation. Diffusion-weighted imaging was performed. The examination is significantly degraded by motion artifact. FINDINGS: The gallbladder is surgically absent. There is no intra or extrahepatic biliary ductal dilatation. Th e common bile duct measures up to 3 mm in diameter. No intraluminal filling defects are seen to sugge st choledocholithiasis. The pancreatic duct is normal in caliber. There is a small fluid collection in the gallbladder fossa which measures 4.2 x 2.5 cm. There is also trace perihepatic ascites. The unenhanced liver, spleen, adrenal glands, and pancreas otherwise jameel sly unremarkable. Small bilateral renal cysts measure up to 2.7 cm. The kidneys are normal in size an d without hydronephrosis. The abdominal aorta is normal in course and caliber. No abdominal lymphaden opathy is seen. The heart is mildly enlarged noting trace pericardial effusion. No pleural effusion i s identified. There is no evidence of destructive bony lesion. IMPRESSION: 1. Status post cholecystectomy. 2. Otherwise unremarkable MRCP. 3. There is a 4.2 x 2.5 cm fluid collection in the gallbladder fossa. This is indeterminant, and may represent a seroma or liquefied hematoma given recent surgery. A biloma is not excluded. The sterilit y of this fluid cannot be assessed by imaging and clinical correlation will be required. 4. Additional findings as above. Dictated: 10/29/2023 11:08 AM Transcribed: 10/29/2023 11:41 AM Gillian [id number] [email or web address] [id number] Electronically signed by: Lito Sheehan M.D. 10/29/2023 12:18 PM
--- NOTE | 2023-10-29 13:10 | Communication Note ---
Date of Service: October 29, 2023 Pt seen after MRCP. Friend at bedside. Denied acute concerns, asking about going home. Noted slight left sided abd pain, otherwise unremarkable exam. Diet ordered after reviewing MRCP results. Appreciate GI and General Surgery recs. For more information, please see H & P from same date of service.
[2023-10-30] MEDS: PIPERACILLIN/TAZOBACTAM 4.5 GM in DEXTROSE 5% MINI-B 100 ML IV SCH ×3 (05:45→21:05)
[2023-10-30 07:31] LABS: Basophils # (auto) 0.03 K/uL (0.00-0.20); Basophils % (auto) 0.5 %; Eosinophils # (auto) 0.19 K/uL (0.00-0.50); Hematocrit (blood only) 33.2 % (42.0-52.0); Immature Granulocytes # (auto) 0.06 K/uL (0.01-0.20); Lymphocytes # (auto) 1.46 K/uL (1.20-3.40); Lymphocytes % (auto) 23.3 %; Mean Corpuscular Hemoglobin 30.6 pg (25.0-34.0); Mean Corpuscular Hgb Conc 33.1 g/dL (32.0-36.0); Mean Corpuscular Volume 92.5 fL (80.0-100.0); Mean Platelet Volume 9.9 fL (9.4-12.4); Monocytes # (auto) 1.19 K/uL (0.11-0.59); Neutrophils # (auto) 3.33 K/uL (1.40-6.50); Neutrophils % (auto) 53.2 %; Platelet Count 297 K/uL (130-400); RDW Coefficient of Variation 13.3 % (11.5-14.5); RDW Standard Deviation 45.1 fL (36.4-46.3); Red Blood Count 3.59 M/uL (4.70-6.10); White Blood Count 6.26 K/ul (4.8-10.8)
[2023-10-30 08:23] LABS: Albumin Globulin Ratio 1.1 (0.9-2); Albumin Level 3.2 gm/dl (3.4-5.0); Bilirubin,Total 1.2 mg/dl (0.2-1.0); Calcium 8.5 mg/dl (8.6-10.3); Creatinine Clr Calc Pharmacy 53.9 ml/min; Est GFR (African American) 69.3 ml/min; Est GFR (Non-African American) 59.8 ml/min; Globulin 2.9 gm/dl (2.5-4.0); Magnesium 1.9 mg/dl (1.7-2.4); Phosphorus 3.3 mg/dl (2.5-4.9); Potassium 4.3 mmol/L (3.5-5.1); Total Protein 6.1 gm/dl (6.0-8.3)
[2023-10-30] MEDS: INSULIN ASPART PER UNIT CHARGE SC SCH ×4 (09:11→21:05)
[2023-10-30] MEDS: GABAPENTIN 100 MG CAP PO SCH ×3 (09:11→21:06)
[2023-10-30] MEDS: ENALAPRIL MALEATE 10 MG TAB PO SCH (09:12)
[2023-10-30] MEDS: PANTOprazole 40 MG TAB PO SCH (09:12)
[2023-10-30] MEDS: TAMSULOSIN HCL 0.4 MG CAP PO SCH (09:12)
[2023-10-30] MEDS: CITALOPRAM 20 MG TAB PO SCH (09:12)
[2023-10-30] MEDS: ASPIRIN 81 MG ECTAB PO SCH (09:12)
--- NOTE | 2023-10-30 09:13 | Surgery Progress Note ---
Date of Service October 30, 2023 Assessment & Plan (1) Elevated LFTs: Plan: resolving LFTs MRCP negative fluid collection likely post op no surgical issues will sign off Present on Admission?: Yes Admission and Anticipated Discharge Date Admission Date: October 29, 2023 Subjective no pain taking po well MRCP with no stones seen LFTs trending down, stone potentially passed into duodenum Review of Systems Constitutional: no fever, no chills and no anorexia Respiratory: no cough and no dyspnea Cardiovascular: no chest pain Gastrointestinal: no abdominal pain, no nausea and no vomiting Genitourinary: no dysuria Neurologic: no localized weakness and no generalized weakness Physical Exam Constitutional: WD/WN, vitals as above Eyes: PERRL, conjunctivae normal, anicteric sclerae Respiratory: normal respiratory effort, lungs clear to auscultation Cardiovascular: RRR, no murmur, no edema Gastrointestinal (Abdomen): Inspection/Auscultation: abdomen normal to inspection and normal bowel sounds; abdomen not distended Percussi on/Palpation: abdomen soft; abdomen nontender, no guarding and abdomen not rigid Musculoskeletal: Head/Neck/Chest: normocephalic and head atraumatic Skin: no rashes, warm and dry Results & Data Vital Signs (Past 12 Hours) Vital Signs Temp Pulse Pulse Pulse Resp BP Pulse Ox 10/30/23 08:10 64 10/30/23 07:43 36.6 C 61 18 160/81 H 96 10/30/23 03:05 37.1 C 67 18 146/72 H 94 10/30/23 01:36 37.4 C 10/30/23 00:03 37.8 C H 10/29/23 23:50 38 C H 68 18 166/74 H 96 10/29/23 22:02 70 O2 Del Method 10/30/23 08:10 10/30/23 07:43 Room Air 10/30/23 03:05 Room Air 10/30/23 01:36 10/30/23 00:03 10/29/23 23:50 Room Air 10/29/23 22:02
--- NOTE | 2023-10-30 10:52 | Gastrointestinal Consultation ---
Date of Consultation October 30, 2023 Assessment & Plan (1) Elevated LFTs: Pleasant man with abdominal pain after cholecystectomy with jump in liver enzymes which were normal prior to his surgery. They did elevate shortly after surgery. MRCP unremarkable except for fluid collection in gallbladder fossa. I agree with surgical territory manager on both counts especially in light of the fact that he feels back to normal. I think the fluid collection is just postop fluid and will resolve without intervention. I also agree that he may well have passed a CBD stone into his duodenum with the rapid decline in LFT's and normal MRCP. If pain returns and/or LFT's jump then I would do ERCP. Otherwise I would just follow LFT's until the resolve which can be done as an outpatient. History of Present Illness Reason for Consultation: abnormal LFT's Attending Physician: Shaunna Bravo MD History of Present Illness 83 year old man recently status post lap jose m readmitted with abdominal pain, jump in LFT's and a fluid collection in his gallbladder fossa. MRCP yesterday showed no defects in bile ducts and no connection to fluid collection. Today he is feeling very well and tolerating diet. He has no pain. LFT's are much better. He tells me he doesn't have chronic GI issues. Allergies Allergy/AdvReac Type Severity Reaction Status Date / Time bee venom protein (honey bee) Allergy Unknown Unverified 03/11/22 20:33 Home Medications Medication Instructions Recorded Confirmed Type citalopram 20 mg tablet 20 mg PO QAM 12/30/18 10/28/23 History tamsulosin 0.4 mg capsule 0.8 mg PO QAM 12/30/18 10/28/23 History atorvastatin 40 mg tablet 40 mg PO HS #30 tabs 01/01/19 10/28/23 Rx cholecalciferol (vitamin D3) 25 50 mcg PO DAILY 09/22/21 10/28/23 History mcg (1,000 unit) tablet pantoprazole 40 mg tablet,delayed 40 mg PO QAM #30 tabs 09/24/21 10/28/23 Rx release clopidogrel 75 mg tablet 75 mg PO QAM 03/11/22 10/28/23 History glucosam 750 mg-chondroi 100 2 tab PO DAILY 03/11/22 10/28/23 History mg-hyalur 1.65 mg-CF borate 108 mg tablet (Move Free Red-rabbit) aspirin 81 mg tablet,delayed 81 mg PO QAM 30 days #30 tabs 03/14/22 10/28/23 Rx release albuterol sulfate 90 mcg/actuation 2 puff inhalation Q4H PRN Wheezing 10/08/23 10/28/23 History aerosol inhaler benazepril 10 mg tablet 10 mg PO QAM 10/08/23 10/28/23 History gabapentin 100 mg capsule 100 mg PO TID 10/08/23 10/28/23 History magnesium oxide 400 mg (241.3 mg 400 mg PO DAILY 10/08/23 10/28/23 History magnesium) tablet metformin 500 mg tablet,extended 1,000 mg PO AMPM 10/08/23 10/28/23 History release 24 hr Patient History Medical History 1st degree AV block PAT (paroxysmal atrial tachycardia) GERD without esophagitis Acute CVA (cerebrovascular accident) Thrombosis of left vertebral artery HTN (hypertension) DMII (diabetes mellitus, type 2) Acute hypoxemic respiratory failure Diverticulitis Depression HLD (hyperlipidemia) BPH (benign prostatic hyperplasia) PUD (peptic ulcer disease) UGIB (upper gastrointestinal bleed) PNA (pneumonia) Asthma Surgical History History of cataract surgery History of colonoscopy with polypectomy History of esophagogastroduodenoscopy (EGD) Family History Father , 71 Heart disease Mother Alzheimer disease Parkinsons disease Social History Smoking Status: Former smoker Tobacco Type: Cigarettes Second Hand Exposure: No; Do You Dip or Chew Tobacco: No; Hx Alcohol Use: No Hx Substance Use: No Preferred Language: Kazakh Communication Ability: Effective Hearing Ability: Hard of Hearing Environmental Science Technician Required: No Beliefs That Will Affect Care: None marital status: Current Living Situation: Alone Current Living Situation Comment: son and sons check in on him current occupational status: retired Feels Safe at Home: Yes Safety Concerns: Feels Safe At This Time Assistive Devices: Cane and Walker Review of Systems Review of Systems: All systems reviewed & are unremarkable except as noted in HPI & below Physical Exam Physical Exam: He looks well Constitutional: WD/WN, vitals as above Neck: trachea midline, no thyromegaly Respiratory: normal respiratory effort, lungs clear to auscultation Cardiovascular: RRR, no murmur, no edema Gastrointestinal (Abdomen): normal bowel sounds, soft, nontender, no hepatosplenomegaly Results & Data Vital Signs (Past 12 Hours) Vital Signs Temp Pulse Pulse Pulse Resp BP Pulse Ox 10/30/23 08:10 64 10/30/23 07:43 36.6 C 61 18 160/81 H 96 10/30/23 03:05 37.1 C 67 18 146/72 H 94 10/30/23 01:36 37.4 C 10/30/23 00:03 37.8 C H 10/29/23 23:50 38 C H 68 18 166/74 H 96 O2 Del Method 10/30/23 08:10 10/30/23 07:43 Room Air 10/30/23 03:05 Room Air 10/30/23 01:36 10/30/23 00:03 10/29/23 23:50 Room Air Laboratory Results 10/30/23 10/30/23 10/29/23 Range/Units 07:43 07:16 20:26 WBC 6.26 (4.8-10.8) K/ul RBC 3.59 L (4.70-6.10) M/uL Hgb 11.0 L (14.0-18.0) g/dl Hct 33.2 L (42.0-52.0) % MCV 92.5 (80.0-100.0) fL MCH 30.6 (25.0-34.0) pg MCHC 33.1 (32.0-36.0) g/dL RDW Std Deviation 45.1 (36.4-46.3) fL RDW Coeff of Tana 13.3 (11.5-14.5) % Plt Count 297 (130-400) K/uL MPV 9.9 (9.4-12.4) fL Immature Gran % (Auto) 1.0 % Neut % (Auto) 53.2 % Lymph % (Auto) 23.3 % [place] % (Auto) 19.0 % Eos % (Auto) 3.0 % Baso % (Auto) 0.5 % Neut # (Auto) 3.33 (1.40-6.50) K/uL Lymph # (Auto) 1.46 (1.20-3.40) K/uL [place] # (Auto) 1.19 H (0.11-0.59) K/uL Eos # (Auto) 0.19 (0.00-0.50) K/uL Baso # (Auto) 0.03 (0.00-0.20) K/uL Immature Gran # (Auto) 0.06 (0.01-0.20) K/uL Sodium 136 (136-145) mmol/L Potassium 4.3 (3.5-5.1) mmol/L Chloride 104 (98-107) mmol/L Carbon Dioxide 27 (21-32) mmol/L Anion Gap 5 (3-11) BUN 9 (6-23) mg/dl Creatinine 1.13 (0.6-1.4) mg/dl Est Cr Clr Drug Dosing 53.9 ml/min Est GFR ( Amer) 69.3 ml/min Est GFR (Non-Af Amer) 59.8 ml/min BUN/Creatinine Ratio 8.0 L (10-20) Glucose 99 (70-99(Fasting)) mg/dl POC Glucose 100 H 97 (70-99) mg/dl Calcium 8.5 L (8.6-10.3) mg/dl Phosphorus 3.3 (2.5-4.9) mg/dl Magnesium 1.9 (1.7-2.4) mg/dl Total Bilirubin 1.2 H D (0.2-1.0) mg/dl AST 113 H (13-39) U/L ALT 180 H (7-52) U/L Alkaline Phosphatase 252 H (34-104) U/L Total Protein 6.1 (6.0-8.3) gm/dl Albumin 3.2 L (3.4-5.0) gm/dl Globulin 2.9 (2.5-4.0) gm/dl Albumin/Globulin Ratio 1.1 (0.9-2) Stl C. diff Tox B Gene (Neg) 10/29/23 10/29/23 10/29/23 Range/Units 19:30 17:49 15:54 WBC (4.8-10.8) K/ul RBC (4.70-6.10) M/uL Hgb (14.0-18.0) g/dl Hct (42.0-52.0) % MCV (80.0-100.0) fL MCH (25.0-34.0) pg MCHC (32.0-36.0) g/dL RDW Std Deviation (36.4-46.3) fL RDW Coeff of Tana (11.5-14.5) % Plt Count (130-400) K/uL MPV (9.4-12.4) fL Immature Gran % (Auto) % Neut % (Auto) % Lymph % (Auto) % [place] % (Auto) % Eos % (Auto) % Baso % (Auto) % Neut # (Auto) (1.40-6.50) K/uL Lymph # (Auto) (1.20-3.40) K/uL [place] # (Auto) (0.11-0.59) K/uL Eos # (Auto) (0.00-0.50) K/uL Baso # (Auto) (0.00-0.20) K/uL Immature Gran # (Auto) (0.01-0.20) K/uL Sodium (136-145) mmol/L Potassium (3.5-5.1) mmol/L Chloride (98-107) mmol/L Carbon Dioxide (21-32) mmol/L Anion Gap (3-11) BUN (6-23) mg/dl Creatinine (0.6-1.4) mg/dl Est Cr Clr Drug Dosing ml/min Est GFR ( Amer) ml/min Est GFR (Non-Af Amer) ml/min BUN/Creatinine Ratio (10-20) Glucose (70-99(Fasting)) mg/dl POC Glucose 129 H 119 H (70-99) mg/dl Calcium (8.6-10.3) mg/dl Phosphorus (2.5-4.9) mg/dl Magnesium (1.7-2.4) mg/dl Total Bilirubin (0.2-1.0) mg/dl AST (13-39) U/L ALT (7-52) U/L Alkaline Phosphatase (34-104) U/L Total Protein (6.0-8.3) gm/dl Albumin (3.4-5.0) gm/dl Globulin (2.5-4.0) gm/dl Albumin/Globulin Ratio (0.9-2) Stl C. diff Tox B Gene Negative Cdiff Gene (Neg) 10/29/23 Range/Units 12:54 WBC (4.8-10.8) K/ul RBC (4.70-6.10) M/uL Hgb (14.0-18.0) g/dl Hct (42.0-52.0) % MCV (80.0-100.0) fL MCH (25.0-34.0) pg MCHC (32.0-36.0) g/dL RDW Std Deviation (36.4-46.3) fL RDW Coeff of Tana (11.5-14.5) % Plt Count (130-400) K/uL MPV (9.4-12.4) fL Immature Gran % (Auto) % Neut % (Auto) % Lymph % (Auto) % [place] % (Auto) % Eos % (Auto) % Baso % (Auto) % Neut # (Auto) (1.40-6.50) K/uL Lymph # (Auto) (1.20-3.40) K/uL [place] # (Auto) (0.11-0.59) K/uL Eos # (Auto) (0.00-0.50) K/uL Baso # (Auto) (0.00-0.20) K/uL Immature Gran # (Auto) (0.01-0.20) K/uL Sodium (136-145) mmol/L Potassium (3.5-5.1) mmol/L Chloride (98-107) mmol/L Carbon Dioxide (21-32) mmol/L Anion Gap (3-11) BUN (6-23) mg/dl Creatinine (0.6-1.4) mg/dl Est Cr Clr Drug Dosing ml/min Est GFR ( Amer) ml/min Est GFR (Non-Af Amer) ml/min BUN/Creatinine Ratio (10-20) Glucose (70-99(Fasting)) mg/dl POC Glucose 133 H (70-99) mg/dl Calcium (8.6-10.3) mg/dl Phosphorus (2.5-4.9) mg/dl Magnesium (1.7-2.4) mg/dl Total Bilirubin (0.2-1.0) mg/dl AST (13-39) U/L ALT (7-52) U/L Alkaline Phosphatase (34-104) U/L Total Protein (6.0-8.3) gm/dl Albumin (3.4-5.0) gm/dl Globulin (2.5-4.0) gm/dl Albumin/Globulin Ratio (0.9-2) Stl C. diff Tox B Gene (Neg) Diagnostic Findings Abdomen/Pelvis CT 10/28/23 21:46 Exam(s): CT ABDOMEN + PELVIS With Contrast IV Amt: 118 cc opti 320 EXAM: CT Abdomen and Pelvis With Intravenous Contrast CLINICAL HISTORY: Reason for exam: fever, abd pain, recent GB removal. TECHNIQUE: Axial computed tomography images of the abdomen and pelvis with intravenous contrast. CTDI is 27.5 mGy and DLP is 2251.85 mGy-cm. Automated exposure control was utilized for the study. A dose lowering technique was utilized adhering to the principles of ALARA. CONTRAST: Patient received 118 cc opti 320 of IV contrast COMPARISON: No relevant prior studies available. FINDINGS: Lung bases: Unremarkable. No mass. No consolidation. ABDOMEN: Liver: Unremarkable. No mass. Gallbladder and bile ducts: 4.0 x 2.4 x 3.3 cm rim-enhancing postoperative rim-enhancing fluid collection in the gallbladder fossa. Status post cholecystectomy. No ductal dilation. Pancreas: Unremarkable. No mass. No ductal dilation. Spleen: Unremarkable. No splenomegaly. Adrenals: Unremarkable. No mass. Kidneys and ureters: Bilateral simple renal cysts measuring up to 2.1 cm in the lower pole of the right kidney. No further workup is required. No hydronephrosis. Stomach and bowel: Severe colonic diverticulosis without evidence of diverticulitis. No obstruction. PELVIS: Appendix: No findings to suggest acute appendicitis. Bladder: Unremarkable. No mass. Reproductive: Unremarkable as visualized. ABDOMEN and PELVIS: Intraperitoneal space: Unremarkable. No free air. No significant fluid collection. Bones/joints: No acute fracture. No dislocation. Soft tissues: Unremarkable. Vasculature: Unremarkable. No abdominal aortic aneurysm. Lymph nodes: Unremarkable. No enlarged lymph nodes. IMPRESSION: 4.0 x 2.4 x 3.3 cm rim-enhancing postoperative rim-enhancing fluid collection in the gallbladder fossa. Electronically signed by: Ten Shirley M.D. 10/28/23 23:37 PM Chest CTA 10/28/23 21:46 Exam(s): CTA CHEST IV Amt: 118 cc opti 320 EXAM: CT Angiography Chest With Intravenous Contrast CLINICAL HISTORY: Reason for exam: PE, sepsis, recent GB removal. TECHNIQUE: Axial computed tomographic angiography images of the chest with intravenous contrast. CTDI is 27.5 mGy and DLP is 2251.85 mGy-cm. Automated exposure control was utilized for the study. A dose lowering technique was utilized adhering to the principles of ALARA. MIP reconstructed images were created and reviewed. COMPARISON: 09/23/2021. FINDINGS: Pulmonary arteries: Unremarkable. No CT evidence of pulmonary embolism. Aorta: No acute findings. No thoracic aortic aneurysm. Lungs: Peripheral scarring within bilateral lung bases. No mass. No consolidation. Pleural space: Unremarkable. No significant effusion. No pneumothorax. Heart: Unremarkable. No cardiomegaly. No significant pericardial effusion. No evidence of RV dysfunction. Thyroid: 1.8 cm right thyroid nodule unchanged from prior study of 2020. Bones/joints: No acute fracture. No dislocation. Soft tissues: Unremarkable. Lymph nodes: Unremarkable. No enlarged lymph nodes. IMPRESSION: No CT evidence of pulmonary embolism. Electronically signed by: Ten Shirley M.D. 10/28/23 23:26 PM Chest X-Ray 10/28/23 21:51 SINGLE VIEW CHEST CLINICAL HISTORY: Generalized weakness. FINDINGS: An AP, portable, upright chest radiograph is compared to study dated 10/08/2023. The heart is enlarged noting atherosclerotic calcification of the thoracic aorta. The pulmonary vasculature is noncongested. Chronic interstitial thickening is similar to previous. There is bibasilar scarring/atelectasis. The lungs and pleural spaces are otherwise clear. No pneumothorax is seen. The skeletal structures are osteopenic. The bony thorax is grossly intact. IMPRESSION: Cardiomegaly with no active disease in the chest. ACT 112: Negative or not required by law. Electronically signed by: Lito Sheehan M.D. 10/28/2023 11:20 PM Cholangiopancreatography MRI 10/29/23 00:58 MRCP CLINICAL HISTORY: Elevated hepatic transaminases. Recent cholecystectomy. COMPARISON STUDY: Abdominal CT dated 10/28/2023. TECHNIQUE: Abdominal MRCP was performed utilizing various T2-weighted sequences in the axial and coronal planes. 3-D reformats were created and assessed. IV contrast was not administered for this examination. Diffusion-weighted imaging was performed. The examination is significantly degraded by motion artifact. FINDINGS: The gallbladder is surgically absent. There is no intra or extrahepatic biliary ductal dilatation. The common bile duct measures up to 3 mm in diameter. No intraluminal filling defects are seen to suggest choledocholithiasis. The pancreatic duct is normal in caliber. There is a small fluid collection in the gallbladder fossa which measures 4.2 x 2.5 cm. There is also trace perihepatic ascites. The unenhanced liver, spleen, adrenal glands, and pancreas otherwise grossly unremarkable. Small bilateral renal cysts measure up to 2.7 cm. The kidneys are normal in size and without hydronephrosis. The abdominal aorta is normal in course and caliber. No abdominal lymphadenopathy is seen. The heart is mildly enlarged noting trace pericardial effusion. No pleural effusion is identified. There is no evidence of destructive bony lesion. IMPRESSION: 1. Status post cholecystectomy. 2. Otherwise unremarkable MRCP. 3. There is a 4.2 x 2.5 cm fluid collection in the gallbladder fossa. This is indeterminant, and may represent a seroma or liquefied hematoma given recent surgery. A biloma is not excluded. The sterility of this fluid cannot be assessed by imaging and clinical correlation will be required. 4. Additional findings as above. Dictated: 10/29/2023 11:08 AM Transcribed: 10/29/2023 11:41 AM Gillian [id number] Mando [id number] Electronically signed by: Lito Sheehan M.D. 10/29/2023 12:18 PM
--- NOTE | 2023-10-30 13:25 | Hospitalist Progress Note ---
Date of Service October 30, 2023 Assessment & Plan (1) Abdominal pain: (2) Elevated LFTs: (3) Weakness: (4) Diarrhea: (5) Fever: (6) Cholecystitis: (7) Hypomagnesemia: Plan Pt is an 83yoM with PMHx significant for HTN, hyperlipidemia, CVA, PVD, restrictive lung disease as per records, DM2 on oral meds, hyperlipidemia, diverticulosis, BPH, mood disorder, recent cholecystectomy, past tobacco abuse admitted with concerning liver enzymes and reported fever at home. Elevated Liver enzymes Postop/Postcholecystectomy fluid collection Recently at [facility] October 09 to 2022 for choledocholithiasis and possible need for ERCP following [facility] transfer. Patient underwent cholecystectomy, drain placed in gallbladder fossa. CT abd pelvis noting 4.0 x 2.4 x 3.3 cm rim-enhancing postoperative rim- enhancing fluid collection in the gallbladder fossa. MRCP on 10/29 noting possible seroma or liquefied hematoma given recent surgery or possible biloma IV abx General surgery and GI consulted- appreciate recs Trend liver enzymes with AM labs. Continue other home meds as ordered DVT prophylaxis SCDs Re: Possible procedure Full code Admission and Anticipated Discharge Date Admission Date: October 29, 2023 Subjective Pt seen while sleeping in the bed. Awakened and denied abd pain. Later family updated by phone. Review of Systems Review of Systems: All systems reviewed & are unremarkable except as noted in Subjective Physical Exam Physical Exam: General: Alert. No acute distress Skin: No noted rashes or bruises Psych: Appropriate mood and affect Neuro: No gross deficits while laying in bed HEENT: NC/AT Chest: Nontender to palpation. CV: RRR Resp: Breath sounds clear bilaterally, no increased effort of breathing. Abdomen: Soft, nontender Results & Data Results & Data Vital Signs (Past 12 Hours) Vital Signs Temp Pulse Pulse Pulse Resp BP Pulse Ox 10/30/23 12:21 10/30/23 11:23 36.5 C 60 18 147/84 H 96 10/30/23 08:10 64 10/30/23 07:43 36.6 C 61 18 160/81 H 96 10/30/23 03:05 37.1 C 67 18 146/72 H 94 10/30/23 01:36 37.4 C O2 Del Method 10/30/23 12:21 Room Air 10/30/23 11:23 Room Air 10/30/23 08:10 10/30/23 07:43 Room Air 10/30/23 03:05 Room Air 10/30/23 01:36 (5) Fever Fever type: unspecified Qualified Code(s): R50.9 - Fever, unspecified
--- NOTE | 2023-10-30 20:26 | Electrocardiogram Report ---
Test Reason : Blood Pressure : / mmHG Vent. Rate : 076 BPM Atrial Rate : 076 BPM P-R Int : 330 ms QRS Dur : 078 ms QT Int : 480 ms P-R-T Axes : 033 -01 056 degrees QTc Int : 540 ms Sinus rhythm with 1st degree A-V block Prolonged QT Abnormal ECG When compared with ECG of 09-OCT-2023 08:12, Premature atrial complexes are no longer Present Questionable change in QRS duration Confirmed by Ankit Palacios ([id number]) on 10/30/2023 8:26:40 PM Referred By: REFERRED SELF Confirmed By:Ankit Palacios
[2023-10-31] MEDS: PIPERACILLIN/TAZOBACTAM 4.5 GM in DEXTROSE 5% MINI-B 100 ML IV SCH ×3 (06:00→20:46)
[2023-10-31 07:38] LABS: Basophils # (auto) 0.05 K/uL (0.00-0.20); Basophils % (auto) 0.8 %; Eosinophils # (auto) 0.24 K/uL (0.00-0.50); Hematocrit (blood only) 35.1 % (42.0-52.0); Hemoglobin 11.4 g/dl (14.0-18.0); Immature Granulocytes % (auto) 1.6 %; Lymphocytes # (auto) 1.41 K/uL (1.20-3.40); Lymphocytes % (auto) 23.2 %; Mean Corpuscular Hemoglobin 30.2 pg (25.0-34.0); Mean Corpuscular Hgb Conc 32.5 g/dL (32.0-36.0); Mean Corpuscular Volume 92.9 fL (80.0-100.0); Mean Platelet Volume 10.1 fL (9.4-12.4); Monocytes # (auto) 1.07 K/uL (0.11-0.59); Monocytes % (auto) 17.6 %; Neutrophils % (auto) 52.8 %; Platelet Count 273 K/uL (130-400); RDW Coefficient of Variation 13.4 % (11.5-14.5); RDW Standard Deviation 46.2 fL (36.4-46.3); Red Blood Count 3.78 M/uL (4.70-6.10); White Blood Count 6.07 K/ul (4.8-10.8)
[2023-10-31] MEDS: ENALAPRIL MALEATE 10 MG TAB PO SCH (07:49)
[2023-10-31] MEDS: CITALOPRAM 20 MG TAB PO SCH (07:49)
[2023-10-31] MEDS: ASPIRIN 81 MG ECTAB PO SCH (07:49)
[2023-10-31] MEDS: GABAPENTIN 100 MG CAP PO SCH ×3 (07:49→20:39)
[2023-10-31] MEDS: TAMSULOSIN HCL 0.4 MG CAP PO SCH (07:50)
[2023-10-31] MEDS: PANTOprazole 40 MG TAB PO SCH (07:50)
[2023-10-31 08:33] LABS: Albumin Level 3.1 gm/dl (3.4-5.0); Bilirubin,Total 1.1 mg/dl (0.2-1.0); Calcium 8.5 mg/dl (8.6-10.3); Creatinine Clr Calc Pharmacy 46.9 ml/min; Est GFR (African American) 58.5 ml/min; Est GFR (Non-African American) 50.5 ml/min; Globulin 3.1 gm/dl (2.5-4.0); Phosphorus 3.2 mg/dl (2.5-4.9); Potassium 4.5 mmol/L (3.5-5.1); Total Protein 6.2 gm/dl (6.0-8.3)
[2023-10-31] MEDS: INSULIN ASPART PER UNIT CHARGE SC SCH ×4 (08:40→20:37)
--- NOTE | 2023-10-31 20:22 | Hospitalist Progress Note ---
Date of Service October 31, 2023 Assessment & Plan (1) Abdominal pain: (2) Elevated LFTs: (3) Weakness: (4) Diarrhea: (5) Fever: (6) Cholecystitis: (7) Hypomagnesemia: Plan Pt is an 83yoM with PMHx significant for HTN, hyperlipidemia, CVA, PVD, restrictive lung disease as per records, DM2 on oral meds, hyperlipidemia, diverticulosis, BPH, mood disorder, recent cholecystectomy, past tobacco abuse admitted with concerning liver enzymes and reported fever at home. Elevated Liver enzymes Postop/Postcholecystectomy fluid collection Recently at [facility] October 09 to 2022 for choledocholithiasis and possible need for ERCP following [facility] transfer. Patient underwent cholecystectomy, drain placed in gallbladder fossa. CT abd pelvis on admission this time noting 4.0 x 2.4 x 3.3 cm rim-enhancing postoperative rim-enhancing fluid collection in the gallbladder fossa. MRCP completed on 10/29: noting possible seroma or liquefied hematoma given recent surgery, or possible biloma IV abx General surgery and GI consulted- appreciate recs -General surgery stating no surgical issues -GI advising to monitor liver enzymes, if downtrending can be further monitored outpatient. If getting worse, will do ERCP. Trend liver enzymes with AM labs- currently downtrending. Continue other home meds as ordered Diet: DMII/HH DVT prophylaxis SCDs, started on heparin shots as procedure less likely Full code Dispo: Home with family- family requesting pt stay one more night on 10/31 to ensure resolution of liver enzymes. Admission and Anticipated Discharge Date Admission Date: October 30, 2023 Subjective Pt seen while sleeping in the bed. Denied acute concerns and wanted to go home. Later extensive discussion with sister and brother at bedside. They states that they did not want the pt discharged home today as they want him completely healed up. Do not want to have to bring him back. States that this is what happened at [facility]. Physical Exam Physical Exam: General: Alert. No acute distress Skin: No noted rashes or bruises Psych: Appropriate mood and affect Neuro: No gross deficits while laying in bed HEENT: NC/AT Chest: Nontender to palpation. CV: RRR Resp: Breath sounds clear bilaterally, no increased effort of breathing. Abdomen: Soft, nontender Results & Data Results & Data Vital Signs (Past 12 Hours) Vital Signs Temp Pulse Resp BP Pulse Ox O2 Del Method 10/31/23 07:09 36.3 C L 64 18 137/80 95 Room Air (5) Fever Fever type: unspecified Qualified Code(s): R50.9 - Fever, unspecified
[2023-10-31] MEDS: HEPARIN SOD 5,000 UNIT/0.5 ML VIAL SQ SCH (21:30)
[2023-11-01] MEDS: HEPARIN SOD 5,000 UNIT/0.5 ML VIAL SQ SCH ×2 (05:29→13:03)
[2023-11-01] MEDS: PIPERACILLIN/TAZOBACTAM 4.5 GM in DEXTROSE 5% MINI-B 100 ML IV SCH ×3 (05:29→21:20)
[2023-11-01] MEDS: CITALOPRAM 20 MG TAB PO SCH (07:55)
[2023-11-01] MEDS: TAMSULOSIN HCL 0.4 MG CAP PO SCH (07:55)
[2023-11-01] MEDS: PANTOprazole 40 MG TAB PO SCH (07:55)
[2023-11-01] MEDS: GABAPENTIN 100 MG CAP PO SCH ×3 (07:55→21:20)
[2023-11-01] MEDS: ENALAPRIL MALEATE 10 MG TAB PO SCH (07:55)
[2023-11-01] MEDS: ASPIRIN 81 MG ECTAB PO SCH (07:55)
[2023-11-01] MEDS: INSULIN ASPART PER UNIT CHARGE SC SCH ×4 (08:08→21:20)
[2023-11-01 08:30] LABS: Basophils # (auto) 0.04 K/uL (0.00-0.20); Basophils % (auto) 0.9 %; Eosinophils % (auto) 4.7 %; Hematocrit (blood only) 36.2 % (42.0-52.0); Hemoglobin 11.9 g/dl (14.0-18.0); Immature Granulocytes # (auto) 0.07 K/uL (0.01-0.20); Immature Granulocytes % (auto) 1.6 %; Lymphocytes % (auto) 35.2 %; Mean Corpuscular Hemoglobin 30.6 pg (25.0-34.0); Mean Corpuscular Hgb Conc 32.9 g/dL (32.0-36.0); Mean Corpuscular Volume 93.1 fL (80.0-100.0); Mean Platelet Volume 10.1 fL (9.4-12.4); Monocytes # (auto) 0.68 K/uL (0.11-0.59); Neutrophils # (auto) 1.77 K/uL (1.40-6.50); Neutrophils % (auto) 41.6 %; Platelet Count 275 K/uL (130-400); RDW Coefficient of Variation 13.6 % (11.5-14.5); Red Blood Count 3.89 M/uL (4.70-6.10); White Blood Count 4.26 K/ul (4.8-10.8)
[2023-11-01 08:52] LABS: Albumin Level 3.3 gm/dl (3.4-5.0); BUN Creatinine Ratio 11.3 (10-20); Bilirubin,Total 0.9 mg/dl (0.2-1.0); Calcium 8.6 mg/dl (8.6-10.3); Est GFR (African American) 67.8 ml/min; Est GFR (Non-African American) 58.5 ml/min; Globulin 3.2 gm/dl (2.5-4.0); Phosphorus 2.9 mg/dl (2.5-4.9); Potassium 4.3 mmol/L (3.5-5.1); Total Protein 6.5 gm/dl (6.0-8.3)
--- NOTE | 2023-11-01 15:33 | Hospitalist Progress Note ---
Date of Service November 01, 2023 Assessment & Plan (1) Abdominal pain: (2) Elevated LFTs: (3) Weakness: (4) Diarrhea: (5) Fever: (6) Cholecystitis: (7) Hypomagnesemia: Plan Pt is an 83yoM with PMHx significant for HTN, hyperlipidemia, CVA, PVD, restrictive lung disease as per records, DM2 on oral meds, hyperlipidemia, diverticulosis, BPH, mood disorder, recent cholecystectomy, past tobacco abuse admitted with concerning liver enzymes and reported fever at home. Elevated Liver enzymes Postop/Postcholecystectomy fluid collection Recently at [facility] October 09 to 2022 for choledocholithiasis and possible need for ERCP following [facility] transfer. Patient underwent cholecystectomy, drain placed in gallbladder fossa. CT abd pelvis on admission this time noting 4.0 x 2.4 x 3.3 cm rim-enhancing postoperative rim-enhancing fluid collection in the gallbladder fossa. MRCP completed on 10/29: noting possible seroma or liquefied hematoma given recent surgery, or possible biloma IV abx General surgery and GI consulted- appreciate recs -General surgery stating no surgical issues -GI advising to monitor liver enzymes, if downtrending can be further monitored outpatient. If getting worse, will do ERCP. Trend liver enzymes with AM labs- were previously downtrending before uptrending once more on 11/01. Gi re-consulted- appreciate recs. Family updated on 11/01 once more. Continue other home meds as ordered Diet: DMII/HH DVT prophylaxis SCDs, started on heparin shots as procedure less likely Full code Dispo: Home with family Admission and Anticipated Discharge Date Admission Date: October 30, 2023 Subjective Pt seen while laying in bed. GI leaving room. States having a "twinge" of abdominal pain once more. Otherwise no acute concerns. Review of Systems Review of Systems: All systems reviewed & are unremarkable except as noted in Subjective Physical Exam Physical Exam: General: Alert. No acute distress Skin: No noted rashes or bruises Psych: Appropriate mood and affect Neuro: No gross deficits while laying in bed HEENT: NC/AT Chest: Nontender to palpation. CV: RRR Resp: Breath sounds clear bilaterally, no increased effort of breathing. Abdomen: Soft, nontender Results & Data Results & Data Vital Signs (Past 12 Hours) Vital Signs Temp Pulse Resp BP Pulse Ox O2 Del Method 11/01/23 15:27 36.5 C 54 L 16 144/62 H 98 Room Air 11/01/23 09:47 36.3 C L 78 16 106/67 94 Room Air (5) Fever Fever type: unspecified Qualified Code(s): R50.9 - Fever, unspecified
--- NOTE | 2023-11-01 16:42 | Gastroenterology Progress Note ---
Date of Service November 01, 2023 Assessment & Plan (1) Elevated LFTs: (2) Abdominal pain: Plan His transaminitis and (until yesterday) continued pain may be caused by choledocholithiasis. Will plan for EUS (+ERCP if indicated) by Dr. Casey tomorrow. NPO after midnight. Further recommendations to follow EUS +/- ERCP. Admission and Anticipated Discharge Date Admission Date: October 30, 2023 Supervising Physician Co-Signing Physician Notes I performed a history and physical examination of the patient today, including specifically on physical exam - soft abdomen. I have discussed the patient's management with the advanced practitioner. Please refer to the nurse practitioner's note for the documented findings and plan of care. EUS tomorrow. Subjective 83 yr old male pt of Dr. Giron w a hx of HTN, CVA, HLD, PVD, restrictive lung dx, DM-2 who was hospitalized at [facility] in September for abd pain, thought not to be a candidate for choleycstectomy here due to comorbidities, transferred to [place] 10/09 where lap jose m was completed and he was Dc'ed 10/15. Pt tells me that he had continued RUQ abd pain from that time, which prompted his readmission to [facility] on 10/29/23, though pain finally resolved yesterday (on Zoysn, limited diet, IV fluids and analgesics). Pt denies any nausea/vomiting, fevers. Meanwhile, though MRCP on arrival w/o bile duct abnormalities, his transaminases are increasing which is why were reconsulted (a GI consult had been completed in our absence by Dr. Grullon during the weekend). Review of Systems Review of Systems: ROS: Gen: Denies weakness, fevers, weight loss Eyes: No eye redness, or pain, no recent vision changes Resp: No SOB, no cough Cardio: No palpitations/irregular beats, no chest pain GI: As per HPI, otherwise (-) : Denies pain on urination Skin: No jaundice, itching or new rashes Physical Exam Constitutional: WD/WN, vitals as above (overweight male, resting in bed, able to move around in bed w/o any assist) Eyes: PERRL, conjunctivae normal, anicteric sclerae ENMT: external ear and nose normal, oropharynx normal Neck: trachea midline, no thyromegaly Respiratory: normal respiratory effort, lungs clear to auscultation Cardiovascular: RRR, no murmurs trace bilat lower leg edema Gastrointestinal (Abdomen): Incisions well healed, abd is non tender, non distended and no palpable masses Skin: no rashes, warm and dry Neurologic: PERRL, EOMI, accommodation nl, no face palsy, no dysarthria Psychiatric: A+Ox3, euthymic affect Lymphatic: no cervical or axillary lymphadenopathy Results & Data Vital Signs (Past 12 Hours) Vital Signs Temp Pulse Resp BP Pulse Ox O2 Del Method 11/01/23 15:27 36.5 C 54 L 16 144/62 H 98 Room Air 11/01/23 09:47 36.3 C L 78 16 106/67 94 Room Air Laboratory Results WBC 4.2, HGB 11.9, HCT 36.2, PLT S2 75, Na 140, K 4.3, Cl 107, CO2 28, BUN 13, CR 1.15, glucose 166 see HPI for LFTs Diagnostic Findings MRCP 10/29/23: 1. Status post cholecystectomy. 2. Otherwise unremarkable MRCP. 3. There is a 4.2 x 2.5 cm fluid collection in the gallbladder fossa. This is indeterminant, and may represent a seroma or liquefied hematoma given recent surgery. A biloma is not excluded. The sterility of this fluid cannot be assessed by imaging and clinical correlation will be required. CTAP w IV 10/28/23: ABDOMEN: Liver: Unremarkable. No mass. Gallbladder and bile ducts: 4.0 x 2.4 x 3.3 cm rim-enhancing postoperative rim-enhancing fluid collection in the gallbladder fossa. Status post cholecystectomy. No ductal dilation. Pancreas: Unremarkable. No mass. No ductal dilation. Spleen: Unremarkable. No splenomegaly. Adrenals: Unremarkable. No mass. Kidneys and ureters: Bilateral simple renal cysts measuring up to 2.1 cm in the lower pole of the right kidney. No further workup is required. No hydronephrosis. Stomach and bowel: Severe colonic diverticulosis without evidence of diverticulitis. No obstruction.
[2023-11-02] MEDS: PIPERACILLIN/TAZOBACTAM 4.5 GM in DEXTROSE 5% MINI-B 100 ML IV SCH ×2 (04:03→13:03)
[2023-11-02] MEDS: INSULIN ASPART PER UNIT CHARGE SC SCH ×4 (08:30→21:10)
[2023-11-02 08:32] LABS: Basophils # (auto) 0.09 K/uL (0.00-0.20); Basophils % (auto) 1.2 %; Eosinophils # (auto) 0.37 K/uL (0.00-0.50); Hematocrit (blood only) 37.2 % (42.0-52.0); Hemoglobin 12.3 g/dl (14.0-18.0); Immature Granulocytes # (auto) 0.17 K/uL (0.01-0.20); Immature Granulocytes % (auto) 2.3 %; Lymphocytes # (auto) 1.98 K/uL (1.20-3.40); Lymphocytes % (auto) 26.9 %; Mean Corpuscular Hemoglobin 30.9 pg (25.0-34.0); Mean Corpuscular Hgb Conc 33.1 g/dL (32.0-36.0); Mean Corpuscular Volume 93.5 fL (80.0-100.0); Mean Platelet Volume 10.1 fL (9.4-12.4); Monocytes # (auto) 0.98 K/uL (0.11-0.59); Monocytes % (auto) 13.3 %; Neutrophils # (auto) 3.78 K/uL (1.40-6.50); Neutrophils % (auto) 51.3 %; Platelet Count 273 K/uL (130-400); RDW Coefficient of Variation 13.7 % (11.5-14.5); RDW Standard Deviation 46.9 fL (36.4-46.3); Red Blood Count 3.98 M/uL (4.70-6.10); White Blood Count 7.37 K/ul (4.8-10.8)
[2023-11-02] MEDS: CITALOPRAM 20 MG TAB PO SCH (08:37)
[2023-11-02] MEDS: ASPIRIN 81 MG ECTAB PO SCH (08:37)
[2023-11-02] MEDS: ENALAPRIL MALEATE 10 MG TAB PO SCH (08:38)
[2023-11-02] MEDS: TAMSULOSIN HCL 0.4 MG CAP PO SCH (08:41)
[2023-11-02] MEDS: PANTOprazole 40 MG TAB PO SCH (08:41)
[2023-11-02] MEDS: GABAPENTIN 100 MG CAP PO SCH ×3 (08:41→21:15)
[2023-11-02 09:06] LABS: Albumin Level 3.4 gm/dl (3.4-5.0); BUN Creatinine Ratio 10.9 (10-20); Bilirubin,Total 0.8 mg/dl (0.2-1.0); Calcium 8.9 mg/dl (8.6-10.3); Creatinine Clr Calc Pharmacy 55.4 ml/min; Est GFR (African American) 71.6 ml/min; Est GFR (Non-African American) 61.8 ml/min; Globulin 3.3 gm/dl (2.5-4.0); Magnesium 2.1 mg/dl (1.7-2.4); Phosphorus 3.2 mg/dl (2.5-4.9); Potassium 4.5 mmol/L (3.5-5.1); Total Protein 6.7 gm/dl (6.0-8.3)
[2023-11-02] MEDS ORDERED: fentaNYL citrate PF 100 MCG/2 ML VIAL ONE (10:06)
[2023-11-02] MEDS ORDERED: PROPOFOL IV EMULSION 10 MG/ML 20 ML VIAL IV ONE (10:06)
[2023-11-02] MEDS ORDERED: ONDANSETRON INJ 2 MG/ML 2 ML VIAL ONE (10:06)
[2023-11-02] MEDS ORDERED: LIDOCAINE 2% 2 ML VIAL/AMP(20MG/ML) INFIL ONE (10:06)
[2023-11-02] MEDS ORDERED: SUCCINYLCHOLINE CHLORIDE 20 MG/ML 10 ML VIAL IV ONE (10:06)
--- NOTE | 2023-11-02 10:11 | History & Physical Bridge Note ---
Date of Service November 02, 2023 History & Physical Bridge Note I have examined the patient, reviewed the History & Physical and in the interval since the performance of the History & Physical I have noted the following changes of clinical significance: no changes noted EUS/ERCP Patient was explained in detail regarding risks, benefits, limitations and alternatives of the above endoscopic procedure. Risks of intravenous sedation used for procedure were also explained. Risks include, but not limited to perfo ration, bleeding, infection, respiratory distress, cardiac arrest and . Patient is also aware about the possibility of missed lesion. Patient's questions were answered. The patient verbalized understanding the information and agreed to undergo the procedure.
[2023-11-02] MEDS ORDERED: ATROPINE SULFATE 0.1 MG/ML 10ML SYR IV PRN (10:37)
[2023-11-02] MEDS ORDERED: ePHEDrine sulfate 50 MG/ML AMP IV PRN (10:37)
[2023-11-02] MEDS ORDERED: HYDROmorphone INJ 2 MG/ML SYR/VIAL IV PRN (10:37)
[2023-11-02] MEDS ORDERED: fentaNYL citrate PF 100 MCG/2 ML VIAL IV PRN (10:37)
--- NOTE | 2023-11-02 10:37 | Anesthesiology Consultation ---
Date of Service November 02, 2023 Assessment & Plan ASA ASA3 Proposed Anesthesia Anesthesia Type: MAC Risk / Benefits Reviewed With: PT / POA / Parent / Guardian, Accepts Plan and Informed Consent Obtained History Surgery Operation Date: 11/02/23 07:00 Proposed Procedures p Endoscopic Retrograde Cholangiopancreatogram - Abbe Casey MD s Endoscopic Ultrasonography Upper - Abbe Casey MD Height/Weight Height: 5 ft 8 in Weight: 89.9 kg Allergies Allergy/AdvReac Type Severity Reaction Status Date / Time bee venom protein (honey bee) Allergy Unknown Unverified 03/11/22 20:33 Medications Home Medications Medication Instructions Recorded Confirmed Last Taken citalopram 20 mg tablet 20 mg PO QAM 12/30/18 10/28/23 10/07/23 tamsulosin 0.4 mg capsule 0.8 mg PO QAM 12/30/18 10/28/23 10/07/23 atorvastatin 40 mg tablet 40 mg PO HS #30 tabs 01/01/19 10/28/23 10/07/23 cholecalciferol (vitamin D3) 25 50 mcg PO DAILY 09/22/21 10/28/23 10/07/23 mcg (1,000 unit) tablet pantoprazole 40 mg tablet,delayed 40 mg PO QAM #30 tabs 09/24/21 10/28/23 10/07/23 release clopidogrel 75 mg tablet 75 mg PO QAM 03/11/22 10/28/23 10/07/23 glucosam 750 mg-chondroi 100 2 tab PO DAILY 03/11/22 10/28/23 10/07/23 mg-hyalur 1.65 mg-CF borate 108 mg tablet ([facility]) aspirin 81 mg tablet,delayed 81 mg PO QAM 30 days #30 tabs 03/14/22 10/28/23 10/07/23 release albuterol sulfate 90 mcg/actuation 2 puff inhalation Q4H PRN Wheezing 10/08/23 10/28/23 Unknown aerosol inhaler benazepril 10 mg tablet 10 mg PO QAM 10/08/23 10/28/23 10/07/23 gabapentin 100 mg capsule 100 mg PO TID 10/08/23 10/28/23 10/07/23 magnesium oxide 400 mg (241.3 mg 400 mg PO DAILY 10/08/23 10/28/23 10/07/23 magnesium) tablet metformin 500 mg tablet,extended 1,000 mg PO AMPM 10/08/23 10/28/23 10/07/23 release 24 hr Active Medications Generic Name Dose Route Start Last Admin Trade Name Jose PRN Reason Stop Dose Admin Acetaminophen 500 mg 10/29/23 01:01 10/29/23 20:43 Acetaminophen 500 Mg Tab PO 11/28/23 01:00 500 mg Q6H PRN Administration fever/pain Aspirin 81 mg 10/29/23 09:00 11/02/23 08:37 Aspirin 81 Mg Ectab PO 11/28/23 08:59 Not Given QAM MATT Citalopram Hydrobromide 20 mg 10/29/23 09:00 11/02/23 08:37 Citalopram 20 Mg Tab PO 11/28/23 08:59 20 mg QAM MATT Administration Enalapril Maleate 10 mg 10/29/23 09:00 11/02/23 08:38 Enalapril Maleate 10 Mg Tab PO 11/28/23 08:59 10 mg QAM [facility] Administration Gabapentin 100 mg 10/29/23 09:00 11/02/23 08:41 Gabapentin 100 Mg Cap PO 11/28/23 08:59 100 mg TID MATT Administration Heparin Sodium (Porcine) 5,000 units 10/31/23 22:00 11/01/23 13:03 Heparin Sod 5,000 Unit/0.5 Ml Vial SQ 11/30/23 21:59 5,000 units Q8 [facility] Administration Piperacillin Sod/Tazobactam 100 mls @ 25 mls/hr 10/31/23 21:00 11/02/23 09:19 Sod 4.5 gm/ Dextrose IV 11/02/23 20:59 Infused Q8H [facility] Infusion Protocol Insulin Aspart 0 units 10/29/23 16:00 11/02/23 08:30 Insulin Aspart Per Unit Charge SC 11/28/23 15:59 Not Given ACHS MATT Pantoprazole Sodium 40 mg 10/29/23 09:00 11/02/23 08:41 Pantoprazole 40 Mg Tab PO 11/28/23 08:59 40 mg QAM MATT Administration Tamsulosin HCl 0.8 mg 10/29/23 09:00 11/02/23 08:41 Tamsulosin Hcl 0.4 Mg Cap PO 11/28/23 08:59 0.8 mg QAM MATT Administration NPO Date Last Intake of Fluids: 11/01/23 Time Last Intake of Fluids: 20:00 Date Last Intake of Solids: 11/01/23 Time Last Intake of Solids: 20:00 Past Medical History Medical History 1st degree AV block PAT (paroxysmal atrial tachycardia) GERD without esophagitis Acute CVA (cerebrovascular accident) Thrombosis of left vertebral artery HTN (hypertension) DMII (diabetes mellitus, type 2) Acute hypoxemic respiratory failure Diverticulitis Depression HLD (hyperlipidemia) BPH (benign prostatic hyperplasia) PUD (peptic ulcer disease) UGIB (upper gastrointestinal bleed) PNA (pneumonia) Asthma Exercise / Class Metabolic Activity II 4-5 Yardwork/Stairs/Walk up hill Past Family History Family History Father , 71 Heart disease Mother Alzheimer disease Parkinsons disease Past Surgical History Surgical History History of cataract surgery History of colonoscopy with polypectomy History of esophagogastroduodenoscopy (EGD) Past Anesthesia History No Hx of Anesthesia Complications and No Family Hx of Anesthesia Complications History of PONV No Hx of PONV and No Hx of Motion Sickness Social History Smoking Status: Former smoker tobacco type: smokeless tobacco Do You Dip or Chew Tobacco: No Hx Alcohol Use: No alcohol intake frequency: a few times a month Hx Substance Use: No Review of Systems denies fever/cough/ colds/ chest pain/ SOB/ DONN denies DONN Physical Exam Vital Signs Last Vital Signs Temp 37.0 C 11/02/23 10:26 Pulse 62 11/02/23 10:26 Resp 18 11/02/23 10:26 BP 138/99 11/02/23 10:26 Pulse Ox 97 11/02/23 10:26 O2 Del Method Room Air 11/02/23 10:26 ENMT Mouth: + edentulous; no TMJ abnormality and no dentition abnormality Thyromental Distance: > or= 3.5 Finger Breadths Mallampati Class: II Neck neck extension not limited Respiratory normal respiratory effort; no respiratory distress Auscultation: lungs clear to auscultation bilaterally Cardiovascular Rate/Rhythm: regular rate and regular rhythm Neurologic moves all extremities Psychiatric Orientation: alert and oriented x 3 Testing Laboratory Results 11/02/23 07:59 11/02/23 07:59 PT 12.2 Seconds (9.0-12.0) H 10/28/23 23:02 INR 1.1 (0.9-1.1) 10/28/23 23:02 APTT 28 Seconds (21-31) 10/28/23 23:02 Urine Color Dark Yellow 10/28/23 19:50 Urine Appearance Clear (Clear) 10/28/23 19:50 Urine pH 6.0 (4.5-7.5) 10/28/23 19:50 Ur Specific [place] 1.007 (1.000-1.030) 10/28/23 19:50 Urine Protein Negative (Negative) 10/28/23 19:50 Urine Glucose (UA) Negative (Negative) 10/28/23 19:50 Urine Ketones Negative (Negative) 10/28/23 19:50 Urine Nitrite Negative (Negative) 10/28/23 19:50 Ur Leukocyte Esterase Negative (Negative) 10/28/23 19:50 10/28/23 23:02 Aerobic Blood Culture - Preliminary Blood No growth in Aerobic bottle after 48 hours. Anaerobic Blood Culture - Preliminary No growth in Anaerobic bottle after 48 hours. 10/28/23 23:02 Aerobic Blood Culture - Preliminary Blood No growth in Aerobic bottle after 48 hours. Anaerobic Blood Culture - Preliminary No growth in Anaerobic bottle after 48 hours. 11/02/23 11/02/23 10:27 08:16 POC Glucose 127 H 125 H
[2023-11-02] MEDS ORDERED: INDOMETHACIN 50 MG SUPP PR ONE (11:28)
--- NOTE | 2023-11-02 11:36 | Operative Report ---
Post Operative Report Pre & Post Diagnosis Operation Date: 11/02/23 07:00 Pre-Op Diagnosis: ABN LFTS, TROP ELEV I identified the patient and participated in the time-out.: Yes Procedure Operation Date: 11/02/23 07:00 Actual Procedures p Esophagogastroduodenoscopy - Abbe Casey MD s Endoscopic Ultrasonography Upper - Abbe Casey MD Surgeon Abbe Casey MD Uniform Cap Operator None Estimated Blood Loss 0 Findings See Below (Bile leak from the GB stump) Specimens None Description of Procedure EUS/ERCP I attest to the content of the Intraoperative Record and any orders documented therein. Any exceptions are noted below.
--- NOTE | 2023-11-02 11:56 | GI REPORT ---
Patient Name: Angel Nick Procedure Date: 11/02/2023 10:45 AM Date of : 1940 Admit Type: Inpatient Age: 83 Gender: Male Attending MD: Abbe Casey MD, Procedure: Upper GI endoscopy Providers: Abbe Casey MD Referring MD: Shaunna Bravo Md Indications: Abdominal pain Medicines: Propofol per Anesthesia Complications: No immediate complications. Estimated Blood Loss: Estimated blood loss: none. Procedure: Pre-Anesthesia Assessment: - Prior to the procedure, a History and Physical was performed, and patient medications, allergies and sensitivities were reviewed. The patient's tolerance of previous anesthesia was reviewed. - The risks and benefits of the procedure and the sedation options and risks were discussed with the patient. All questions were answered and informed consent was obtained. - Patient identification and proposed procedure were verified prior to the procedure by the physician and the nurse. The procedure was verified in the procedure room. - Pre-procedure physical examination revealed no contraindications to sedation. After obtaining informed consent, the endoscope was passed under direct vision. Throughout the procedure, the patient's blood pressure, pulse, and oxygen saturations were monitored continuously. The Endoscope was introduced through the mouth, and advanced to the second part of duodenum. The upper GI endoscopy was accomplished without difficulty. The patient tolerated the procedure well. Findings: The examined esophagus was normal. The entire examined stomach was normal. The duodenal bulb and second portion of the duodenum were normal. Impression: - Normal esophagus. - Normal stomach. - Normal duodenal bulb and second portion of the duodenum. - No specimens collected. Recommendation: - Perform an upper endoscopic ultrasound (UEUS) today. Abbe Casey MD 11/02/2023 11:55:29 AM Note Initiated On: 11/02/2023 10:45 AM Number of Addenda: 0 I attest to the content of the Intraoperative Record and orders documented therein, exceptions below {[id number]}
--- NOTE | 2023-11-02 12:06 | GI REPORT ---
Patient Name: Angel Nick Procedure Date: 11/02/2023 11:56 AM Date of : 1940 Admit Type: Inpatient Age: 83 Gender: Male Attending MD: Abbe Casey MD, Procedure: ERCP Providers: Abbe Casey MD Referring MD: Jhony Waddell Md, Shaunna Bravo Md Indications: Suspected bile leak, Elevated liver enzymes, Biliary sludge, Fluid collection on CT scan, Abdominal pain Medicines: Propofol per Anesthesia Complications: No immediate complications. Estimated Blood Loss: Estimated blood loss: none. Procedure: Pre-Anesthesia Assessment: - Prior to the procedure, a History and Physical was performed, and patient medications, allergies and sensitivities were reviewed. The patient's tolerance of previous anesthesia was reviewed. - The risks and benefits of the procedure and the sedation options and risks were discussed with the patient. All questions were answered and informed consent was obtained. - Patient identification and proposed procedure were verified prior to the procedure by the physician and the nurse. The procedure was verified in the procedure room. - Pre-procedure physical examination revealed no contraindications to sedation. After obtaining informed consent, the scope was passed under direct vision. Throughout the procedure, the patient's blood pressure, pulse, and oxygen saturations were monitored continuously. The Duodenoscope was introduced through the mouth, and advanced to the duodenum and used to inject contrast into the bile duct. The ERCP was accomplished without difficulty. The patient tolerated the procedure well. Findings: The laborer chicken farm film was normal. The esophagus was successfully intubated under direct vision. The scope was advanced to a normal major papilla in the descending duodenum without detailed examination of the pharynx, larynx and associated structures, and upper GI tract. The upper GI tract was grossly normal. The major papilla was on the rim of a diverticulum. A 0.025 inch x 270 cm angled Visiglide wire was passed into the biliary tree. The short-nosed traction sphincterotome was passed over the guidewire and the bile duct was then deeply cannulated. Contrast was injected. I personally interpreted the bile duct images. Ductal flow of contrast was adequate. Image quality was adequate. Contrast extended to the main bile duct. Opacification of the entire biliary tree was successful. The maximum diameter of the ducts was 7 mm. Extravasation of contrast originating from the gallbladder remnant was observed. Biliary sphincterotomy was made with a monofilament traction (standard) sphincterotome using ERBE electrocautery. There was no post-sphincterotomy bleeding. The biliary tree was swept with a 12 mm balloon starting at the bifurcation. Sludge was swept from the duct. One 10 Fr by 9 cm plastic biliary stent with a single external flap and a single internal flap was placed into the common bile duct. Bile flowed through the stent. The stent was in good position. Indomethacin 100 mg was given via suppository to decrease the risk of post-ERCP pancreatitis (PEP). Impression: - A bile leak was found from the cystic duct stump (small remnant gallbladder). - One plastic biliary stent was placed into the common bile duct. Recommendation: - Return patient to [facility] for ongoing care. - Repeat ERCP in 3 months to remove stent. Abbe Casey MD 11/02/2023 12:06:02 PM This report has been signed electronically. Note Initiated On: 11/02/2023 11:56 AM Number of Addenda: 0 I attest to the content of the Intraoperative Record and orders documented therein, exceptions below {[id number]}
--- NOTE | 2023-11-02 12:11 | GI REPORT ---
Patient Name: Angel Nick Procedure Date: 11/02/2023 12:08 PM Date of : 1940 Admit Type: Inpatient Age: 83 Gender: Male Attending MD: Abbe Casey MD, Procedure: Upper EUS Providers: Abbe Casey MD Referring MD: Shaunna Bravo Md Indications: Elevated liver enzymes, Suspected choledocholithiasis Medicines: Propofol per Anesthesia Complications: No immediate complications. Estimated Blood Loss: Estimated blood loss: none. Procedure: Pre-Anesthesia Assessment: - Prior to the procedure, a History and Physical was performed, and patient medications, allergies and sensitivities were reviewed. The patient's tolerance of previous anesthesia was reviewed. - The risks and benefits of the procedure and the sedation options and risks were discussed with the patient. All questions were answered and informed consent was obtained. - Patient identification and proposed procedure were verified prior to the procedure by the physician and the nurse. The procedure was verified in the procedure room. - Pre-procedure physical examination revealed no contraindications to sedation. After obtaining informed consent, the endoscope was passed under direct vision. Throughout the procedure, the patient's blood pressure, pulse, and oxygen saturations were monitored continuously. The scope was introduced through the mouth, and advanced to the second part of duodenum. The upper EUS was accomplished without difficulty. The patient tolerated the procedure well. Findings: ENDOSONOGRAPHIC FINDING: : There was no sign of significant endosonographic abnormality in the ampulla. No masses were identified. Minimal hyperechoic material consistent with sludge was visualized endosonographically in the common bile duct. The duct measured 6 mm in maximum diameter. Evidence of a previous cholecystectomy was identified endosonographically. There was no sign of significant endosonographic abnormality in the visualized portion of the liver. Homogeneous parenchyma was identified. There was no sign of significant endosonographic abnormality in the entire pancreas. The pancreatic duct measured up to 2 mm in diameter. Impression: - There was no sign of significant pathology in the ampulla. - Hyperechoic material consistent with sludge was visualized endosonographically in the common bile duct. - Evidence of a cholecystectomy. - There was no evidence of significant pathology in the visualized portion of the liver. - There was no sign of significant pathology in the entire pancreas. Recommendation: - Perform an ERCP today. Abbe Casey MD 11/02/2023 12:10:55 PM This report has been signed electronically. Note Initiated On: 11/02/2023 12:08 PM Number of Addenda: 0 I attest to the content of the Intraoperative Record and orders documented therein, exceptions below {[id number]}
--- NOTE | 2023-11-02 12:19 | Anesthesiology Progress Note ---
Date of Service November 02, 2023 Anesthesia Post Procedure Vital Signs Vital Signs: Temp Pulse Pulse Resp BP Pulse Ox O2 Del Method 11/02/23 12:10 85 17 112/71 95 Nasal Cannula 11/02/23 12:00 36.1 C L 88 17 111/74 95 Nasal Cannula 11/02/23 11:50 98 H 17 92/67 L 95 Oxymask 11/02/23 11:43 36.0 C L 103 H 17 91/59 L 96 Oxymask 11/02/23 10:26 37.0 C 62 18 138/99 97 Room Air 11/02/23 08:16 36.5 C 62 18 148/92 H 97 Room Air 11/01/23 21:05 36.5 C 58 L 18 127/71 97 Room Air 11/01/23 15:27 36.5 C 54 L 16 144/62 H 98 Room Air O2 Flow Rate 11/02/23 12:10 2 11/02/23 12:00 2 11/02/23 11:50 5 11/02/23 11:43 5 11/02/23 10:26 11/02/23 08:16 11/01/23 21:05 11/01/23 15:27 Pain Intensity Head: Pain Intensity: 3 Transfer of Care Handoff Completed per policy Notes Mental Status: alert / awake / arousable and participated in evaluation Patient Amnestic to Procedure: Yes Nausea / Vomiting: adequately controlled Pain: adequately controlled Airway Patency, RR, SpO2: stable & adequate BP & HR: stable & adequate Hydration State: stable & adequate Anesthetic Complications: no major complications apparent and Pt Satisfied with anesthetic care
--- NOTE | 2023-11-02 12:34 | Fluoroscopy Report ---
INTRAOPERATIVE RADIOGRAPHS CLINICAL HISTORY: ERCP. Common bile duct stent placement. Fluoro time: 119 seconds Ka,r: 74.12 mGy FINDINGS: 11 spot fluoroscopic views of the right upper quadrant are correlated with MRCP dated 2023. A wire is advanced into the common bile duct. A balloon sweep of the duct is performed. There i s evidence of a bile leak, with extraluminal contrast located in the gallbladder fossa. The final jesus ges show a common bile duct stent in place. IMPRESSION: Intraoperative images from ERCP with common bile duct stenting as above. See operative re port for detailed findings. Electronically signed by: Lito Sheehan M.D. 11/02/2023 12:32 PM
--- NOTE | 2023-11-02 15:39 | Hospitalist Progress Note ---
Date of Service November 02, 2023 Assessment & Plan (1) Abdominal pain: (2) Elevated LFTs: (3) Weakness: (4) Diarrhea: (5) Fever: (6) Cholecystitis: (7) Hypomagnesemia: Plan Pt is an 83yoM with PMHx significant for HTN, hyperlipidemia, CVA, PVD, restrictive lung disease as per records, DM2 on oral meds, hyperlipidemia, diverticulosis, BPH, mood disorder, recent cholecystectomy, past tobacco abuse admitted with concerning liver enzymes and reported fever at home. Elevated Liver enzymes Postop/Postcholecystectomy fluid collection Recently at [facility] [place] [place] October 09 to 2022 for choledocholithiasis and possible need for ERCP following [facility] transfer. Patient underwent cholecystectomy, drain placed in gallbladder fossa. CT abd pelvis on admission this time noting 4.0 x 2.4 x 3.3 cm rim-enhancing postoperative rim-enhancing fluid collection in the gallbladder fossa. MRCP completed on 10/29: noting possible seroma or liquefied hematoma given recent surgery, or possible biloma IV abx General surgery and GI consulted- appreciate recs -General surgery stating no surgical issues -GI advising to monitor liver enzymes, if downtrending can be further monitored outpatient. If getting worse, will do ERCP. Trend liver enzymes with AM labs- were previously downtrending before uptrending once more on 11/01. GI re-consulted- appreciate recs. Family updated on 11/01 once more. 11/02- pt due to have ERCP today. Liver enzymes are slightly downtrending today. Continue other home meds as ordered Diet: DMII/HH DVT prophylaxis SCDs, started on heparin shots as procedure less likely Full code Dispo: Home with family Admission and Anticipated Discharge Date Admission Date: October 30, 2023 Subjective Pt seen while laying in bed. had not yet gone down for his procedure. Denied acute concerns. Review of Systems Review of Systems: All systems reviewed & are unremarkable except as noted in Subjective Physical Exam 2 Physical Exam: General: Alert. No acute distress Skin: No noted rashes or bruises Psych: Appropriate mood and affect Neuro: No gross deficits while laying in bed HEENT: NC/AT Chest: Nontender to palpation. CV: RRR Resp: Breath sounds clear bilaterally, no increased effort of breathing. Abdomen: Soft, tender Results & Data Results & Data Vital Signs (Past 12 Hours) Vital Signs Temp Pulse Resp BP Pulse Ox O2 Del Method 11/02/23 10:26 37.0 C 62 18 138/99 97 Room Air 11/02/23 08:16 36.5 C 62 18 148/92 H 97 Room Air (5) Fever Fever type: unspecified Qualified Code(s): R50.9 - Fever, unspecified
[2023-11-03 07:37] LABS: Basophils # (auto) 0.04 K/uL (0.00-0.20); Basophils % (auto) 0.7 %; Eosinophils # (auto) 0.26 K/uL (0.00-0.50); Eosinophils % (auto) 4.2 %; Hematocrit (blood only) 35.4 % (42.0-52.0); Hemoglobin 11.5 g/dl (14.0-18.0); Immature Granulocytes # (auto) 0.17 K/uL (0.01-0.20); Immature Granulocytes % (auto) 2.8 %; Lymphocytes # (auto) 1.81 K/uL (1.20-3.40); Lymphocytes % (auto) 29.6 %; Mean Corpuscular Hemoglobin 30.7 pg (25.0-34.0); Mean Corpuscular Hgb Conc 32.5 g/dL (32.0-36.0); Mean Corpuscular Volume 94.4 fL (80.0-100.0); Mean Platelet Volume 10.1 fL (9.4-12.4); Monocytes # (auto) 0.72 K/uL (0.11-0.59); Monocytes % (auto) 11.8 %; Neutrophils # (auto) 3.12 K/uL (1.40-6.50); Neutrophils % (auto) 50.9 %; Platelet Count 244 K/uL (130-400); RDW Coefficient of Variation 13.6 % (11.5-14.5); Red Blood Count 3.75 M/uL (4.70-6.10); White Blood Count 6.12 K/ul (4.8-10.8)
[2023-11-03 07:50] LABS: Albumin Level 3.1 gm/dl (3.4-5.0); BUN Creatinine Ratio 12.3 (10-20); Bilirubin,Total 0.7 mg/dl (0.2-1.0); Calcium 8.8 mg/dl (8.6-10.3); Creatinine Clr Calc Pharmacy 53.5 ml/min; Est GFR (African American) 68.5 ml/min; Est GFR (Non-African American) 59.1 ml/min; Phosphorus 3.4 mg/dl (2.5-4.9); Potassium 4.3 mmol/L (3.5-5.1); Total Protein 6.1 gm/dl (6.0-8.3)
[2023-11-03] MEDS: GABAPENTIN 100 MG CAP PO SCH ×3 (08:46→21:13)
[2023-11-03] MEDS: TAMSULOSIN HCL 0.4 MG CAP PO SCH (08:46)
[2023-11-03] MEDS: ENALAPRIL MALEATE 10 MG TAB PO SCH (08:46)
[2023-11-03] MEDS: ASPIRIN 81 MG ECTAB PO SCH (08:46)
[2023-11-03] MEDS: CITALOPRAM 20 MG TAB PO SCH (08:46)
[2023-11-03] MEDS: PANTOprazole 40 MG TAB PO SCH (08:46)
[2023-11-03] MEDS: INSULIN ASPART PER UNIT CHARGE SC SCH ×4 (08:49→21:13)
--- NOTE | 2023-11-03 11:16 | Gastroenterology Progress Note ---
Date of Service November 03, 2023 Assessment & Plan (1) Bile leak: Plan: Resolved S/P ERCP w stenting. Doing well today. Plan No GI contraindication to eating or to DC. Low fat diet. Needs OP ERCP in to remove CBD stent. GI will sign off. Admission and Anticipated Discharge Date Admission Date: October 30, 2023 Supervising Physician Co-Signing Physician Notes I performed a history and physical examination of the patient today, including specifically on physical exam - soft abdomen. I have discussed the patient's management with the advanced practitioner. Please refer to the nurse practitioner's note for the documented findings and plan of care. Subjective Sitting up in a chair at the bedside, tells me he feels "great.". Able to walk 2 laps around the hallway. Tolerating liquid diet well. Asks for food Review of Systems 2 Review of Systems: ROS: Gen: Denies weakness, fevers, weight loss Eyes: No eye redness, or pain, no recent vision changes Resp: No SOB, no cough Cardio: No palpitations/irregular beats, no chest pain GI: As per HPI, otherwise (-) : Denies pain on urination Skin: No jaundice, itching or new rashes Physical Exam 2 Constitutional: WD/WN, vitals as above (overweight male, resting in bed, able to move around in bed w/o any assist) Eyes: PERRL, conjunctivae normal, anicteric sclerae ENMT: external ear and nose normal, oropharynx normal Neck: trachea midline, no thyromegaly Respiratory: normal respiratory effort, lungs clear to auscultation Cardiovascular: RRR, no murmur, no edema Gastrointestinal (Abdomen): normal bowel sounds, soft, nontender, no hepatosplenomegaly Skin: no rashes, warm and dry Neurologic: PERRL, EOMI, accommodation nl, no face palsy, no dysarthria Psychiatric: A+Ox3, euthymic affect Lymphatic: no cervical or axillary lymphadenopathy Results & Data Vital Signs (Past 12 Hours) Vital Signs Temp Pulse Resp BP Pulse Ox O2 Del Method 11/03/23 07:34 36.4 C L 53 L 16 142/72 H 94 Room Air Laboratory Results t BIli 0.7, AST 54, ALT 108, Alk Phos 223 11/03/23 07:12 11/03/23 07:12 Diagnostic Findings CTAP w IV 10/28/23: 4.0 x 2.4 x 3.3 cm rim-enhancing postoperative rim-enhancing fluid collection in the gallbladder fossa. MRCP 10/29/23: 1. Status post cholecystectomy. 2. Otherwise unremarkable MRCP. 3. There is a 4.2 x 2.5 cm fluid collection in the gallbladder fossa. This is indeterminant, and may represent a seroma or liquefied hematoma given recent surgery. A biloma is not excluded. The sterility of this fluid cannot be assessed by imaging and clinical correlation will be required. ERCP 11/02/23: - A bile leak was found from the cystic duct stump (small remnant gallbladder). - One plastic biliary stent was placed into the common bile duct
--- NOTE | 2023-11-03 21:32 | Hospitalist Progress Note ---
Date of Service November 03, 2023 Assessment & Plan (1) Abdominal pain: (2) Elevated LFTs: (3) Weakness: (4) Diarrhea: (5) Fever: (6) Cholecystitis: (7) Hypomagnesemia: Plan Pt is an 83yoM with PMHx significant for HTN, hyperlipidemia, CVA, PVD, restrictive lung disease as per records, DM2 on oral meds, hyperlipidemia, diverticulosis, BPH, mood disorder, recent cholecystectomy, past tobacco abuse admitted with concerning liver enzymes and reported fever at home. Elevated Liver enzymes Postop/Postcholecystectomy fluid collection Recently at [facility] [place] October 09 to 2022 for choledocholithiasis and possible need for ERCP following [facility] transfer. Patient underwent cholecystectomy, drain placed in gallbladder fossa. CT abd pelvis on admission this time noting 4.0 x 2.4 x 3.3 cm rim-enhancing postoperative rim-enhancing fluid collection in the gallbladder fossa. MRCP completed on 10/29: noting possible seroma or liquefied hematoma given recent surgery, or possible biloma IV abx General surgery and GI consulted- appreciate recs -General surgery stating no surgical issues -GI advising to monitor liver enzymes, if downtrending can be further monitored outpatient. If getting worse, will do ERCP. Trend liver enzymes with AM labs- were previously downtrending before uptrending once more on 11/01. GI re-consulted- appreciate recs. Family updated on 11/01 once more. 11/02- pt due to have ERCP today. Liver enzymes are slightly downtrending today. 11/03- pt symptomatically better. Liver enzymes still elevated but downtrending. Family would like pt discharged when liver enzymes are within normal limits. State that they want to avoid bringing him back to the hospital and avoid this again after discharge from [facility] last time. Continue other home meds as ordered Diet: DMII/HH DVT prophylaxis SCDs, started on heparin shots as procedure less likely Full code Dispo: Home with family Admission and Anticipated Discharge Date Admission Date: October 30, 2023 Subjective Pt was seen laying in bed. Denied acute concerns, asking for diet to be advanced. States abdominal pain resolved. Review of Systems Review of Systems: All systems reviewed & are unremarkable except as noted in Subjective Physical Exam Physical Exam: General: Alert. No acute distress Skin: No noted rashes or bruises Psych: Appropriate mood and affect Neuro: No gross deficits while laying in bed HEENT: NC/AT Chest: Nontender to palpation. CV: RRR Resp: Breath sounds clear bilaterally, no increased effort of breathing. Abdomen: Soft, tender Results & Data Results & Data Vital Signs (Past 12 Hours) Vital Signs Temp Pulse Resp BP Pulse Ox O2 Del Method 11/03/23 07:34 36.4 C L 53 L 16 142/72 H 94 Room Air (5) Fever Fever type: unspecified Qualified Code(s): R50.9 - Fever, unspecified
[2023-11-04 07:15] LABS: Basophils # (auto) 0.05 K/uL (0.00-0.20); Basophils % (auto) 0.7 %; Eosinophils # (auto) 0.37 K/uL (0.00-0.50); Hematocrit (blood only) 35.8 % (42.0-52.0); Hemoglobin 11.8 g/dl (14.0-18.0); Immature Granulocytes # (auto) 0.12 K/uL (0.01-0.20); Immature Granulocytes % (auto) 1.6 %; Lymphocytes # (auto) 2.13 K/uL (1.20-3.40); Lymphocytes % (auto) 28.8 %; Mean Corpuscular Hemoglobin 30.7 pg (25.0-34.0); Mean Corpuscular Volume 93.2 fL (80.0-100.0); Mean Platelet Volume 10.2 fL (9.4-12.4); Monocytes # (auto) 0.85 K/uL (0.11-0.59); Monocytes % (auto) 11.5 %; Neutrophils # (auto) 3.88 K/uL (1.40-6.50); Neutrophils % (auto) 52.4 %; Platelet Count 244 K/uL (130-400); RDW Coefficient of Variation 13.5 % (11.5-14.5); RDW Standard Deviation 45.8 fL (36.4-46.3); Red Blood Count 3.84 M/uL (4.70-6.10)
[2023-11-04 07:30] LABS: Albumin Globulin Ratio 1.2 (0.9-2); Albumin Level 3.6 gm/dl (3.4-5.0); BUN Creatinine Ratio 13.7 (10-20); Bilirubin,Total 0.8 mg/dl (0.2-1.0); Creatinine Clr Calc Pharmacy 52.1 ml/min; Est GFR (African American) 66.4 ml/min; Est GFR (Non-African American) 57.3 ml/min; Phosphorus 2.8 mg/dl (2.5-4.9); Potassium 4.1 mmol/L (3.5-5.1); Total Protein 6.6 gm/dl (6.0-8.3)
[2023-11-04] MEDS: PANTOprazole 40 MG TAB PO SCH (09:01)
[2023-11-04] MEDS: GABAPENTIN 100 MG CAP PO SCH (09:01)
[2023-11-04] MEDS: ASPIRIN 81 MG ECTAB PO SCH (09:01)
[2023-11-04] MEDS: TAMSULOSIN HCL 0.4 MG CAP PO SCH (09:01)
[2023-11-04] MEDS: CITALOPRAM 20 MG TAB PO SCH (09:02)
[2023-11-04] MEDS: ENALAPRIL MALEATE 10 MG TAB PO SCH (09:02)
[2023-11-04] MEDS: INSULIN ASPART PER UNIT CHARGE SC SCH ×2 (09:04→12:53)
--- NOTE | 2023-11-04 16:15 | Discharge Summary ---
Date of Service November 04, 2023 Admission HPI Per Admitting Provider History obtained from patient, family, and records. Medical history significant for HTN, hyperlipidemia, CVA, PVD, restrictive lung disease as per records, DM2 on oral meds, hyperlipidemia, diverticulosis, BPH, mood disorder, recent cholecystectomy, past tobacco abuse. Recent [facility] confinement October 09 to 2022 for choledocholithiasis and possible need for ERCP following [facility] transfer. Patient underwent cholecystectomy, drain placed in gallbladder fossa. Abnormal nocturnal oximetry during confinement. Home O2 arrangements made on discharge back home. 2 weeks ago, home nurse noted redness on incision site. Patient with some abdominal pain. No fever, no chills. PCP prescribed Keflex course which led to improvement of infection as per patient/family. Subsequent loose stools. Patient noted to be increasingly weak by family last few days. Subsequent emesis yesterday. Same abdominal pain. Patient brought to ER for evaluation following home nurse recommendations. IV Zosyn administered at the ER. MEDICAL HISTORY: As above. SURGERIES:Cholecystectomy, cataract surgeries FAMILY HISTORY:Parkinson's disease, dementia, heart disease PERSONAL AND SOCIAL HISTORY: Past tobacco abuse. 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 Admission Exam Per Admitting Provider GENERAL: Comfortable, pleasant, obese, slightly hard of hearing, no respiratory distress SKIN: Pallor, warm HEENT: Alopecia, pale palpebral conjunctivae, no ptosis, dry buccal mucosa NECK : Supple, short neck, no tenderness CHEST : Decreased breath sounds, no tenderness HEART : RRR, no obvious murmurs ABDOMEN: Some distention, minimal right upper quadrant tenderness EXTREMITIES : Minimal LE swelling, no LE tenderness, no other conspicuous deformities noted NEUROLOGIC : Coherent, no facial asymmetry, mild hearing impairment, no other gross focality Principal Diagnosis Bile leak status post ERCP with stent Discharge Exam Constitutional: WD/WN, vitals as above, NAD, sitting up in bed, pleasant, conversing easily Respiratory: normal respiratory effort, lungs clear to auscultation, no wheeze, rales, rhonchi. Normal insp/exp effort, no accessory muscle use Cardiovascular: RRR, no murmur, no edema Vessels: no JVD or carotid bruit Abdomen: Soft, nontender. Bowel sound present. Musculoskeletal: no cyanosis or clubbing, extremities motor strength 5/5 Skin: no rashes, warm and dry normal turgor Neurologic: PERRL, EOMI, accommodation nl, no face palsy, no dysarthria CN's II- XI intact bilaterally and moves all extremities Psychiatric: A+Ox3, euthymic affect Discharge Data Allergies Allergy/AdvReac Type Severity Reaction Status Date / Time bee venom protein (honey bee) Allergy Unknown Unverified 03/11/22 20:33 Consultations 10/29/23 00:00 ED Decision to Admit Stat 10/29/23 00:58 Consult Gastroenterology Routine Consult General Surgery Routine 11/01/23 10:49 Consult Gastroenterology Routine Procedures Performed Operation Date: 11/02/23 07:00 Actual Procedures p Esophagogastroduodenoscopy - Abbe Casey MD s Endoscopic Ultrasonography Upper - Abbe Casey MD p Endoscopic Retrograde Cholangiopancreatogram - Abbe Casey MD Ordered Studies 10/28/23 21:46 CT Abd and Pelvis [CT abd pelvis IV con only] Stat CT angio chest PE protocol Stat 10/29/23 00:58 MR MRCP Stat 11/02/23 FL ERCP biliary ductal Routine 11/02/23 10:44 US upper EUS PACS images Routine 11/02/23 12:07 US upper EUS PACS images Routine Hospital Course (1) Abdominal pain: (2) Elevated LFTs: (3) Weakness: (4) Diarrhea: (5) Fever: (6) Cholecystitis: (7) Hypomagnesemia: Plan Pt is an 83yoM with PMHx significant for HTN, hyperlipidemia, CVA, PVD, restrictive lung disease as per records, DM2 on oral meds, hyperlipidemia, diverticulosis, BPH, mood disorder, recent cholecystectomy, past tobacco abuse admitted with elevated liver enzymes and fever. Elevated Liver enzymes Postop/Postcholecystectomy fluid collection Biliary leak from cystic duct stump status post ERCP with stent placement Recently at [facility] October 09 to 2022 for choledocholithiasis and possible need for ERCP following [facility] transfer. Patient underwent cholecystectomy, drain placed in gallbladder fossa. CT abd pelvis on admission this time noting 4.0 x 2.4 x 3.3 cm rim-enhancing postoperative rim-enhancing fluid collection in the gallbladder fossa. MRCP completed on 10/29: noting possible seroma or liquefied hematoma given recent surgery, or possible biloma Patient underwent ERCP on Melissa 18; found to have bile leak from the cystic duct stump (small remnant gallbladder); 1 plastic biliary stent was placed into common bile duct Patient's liver enzymes improved throughout the hospitalization. Patient did not have abdominal pain or discomfort at discharge. He was ambulating without any difficulties. PT OT recommended home. Patient was discharged home with instruction to follow-up with PCP with repeat CMP. He will also follow-up with GI in 3 months to remove the stent. Discharge instruction discussed with patient's brother over the phone. All questions were answered. Please note the above document was generated using voice recognition software. It may contain grammatical, syntax or spelling errors. Any formal questions or concerns about the content, text or information contained within the body of this dictation should be directly addressed to the provider for clarification Total Time Total Time Spent Total Time Spent (In Minutes): 35 Total Time Includes: Examination of the Patient, Discharge Planning, Medication Reconciliation, Communication With Other Providers and Other Discharge Plan Discharge Items Patient Disposition: Home - Self-Care Reason For Visit: ABN LFTS, TROP ELEV Discharge Diagnosis: Bile leak status post ERCP with stenting Condition on Discharge: Good Activity: Resume your previous activity Non-emergency contact: Primary Care Provider Call non-emergency contact if: you have any medication questions and your symptoms worsen Follow-up/Referrals: Dionicio Cota MD [Outside Practitioners] - (Date & Time 11/09/2023 2:40 PM Provider Dionicio Cota MD Department Family [facility] ) Rebekah Giron DO [Primary Care Provider] - ( ) Abbe Casey MD [Physician] - (The GI office will contact you for a follow up appointment/ stent removal.) Diet: Regular Addtl Attending Provider Instructions: You were admitted to the hospital due to abdominal pain. You underwent endoscopy by gastroenterology on November 02, 2023. You were found to have bile leak for which stent was placed. An appointment will be set up with your primary care doctor for sometime next week. You will need to have liver enzymes checked during the visit to make sure it is improving. The GI doctor will also call you with an appointment as well. Pending Studies at Discharge: No Stand-Alone Forms: [employer], Smoking Cessation Medications and DC Order Prescriptions: Continued citalopram 20 mg Tablet 20 mg PO QAM tamsulosin 0.4 mg Capsule 0.8 mg PO QAM Rx Instructions: 2 tablet dose atorvastatin 40 mg Tablet 40 mg PO HS Qty: 30 1RF cholecalciferol (vitamin D3) 25 mcg (1,000 unit) Tablet 50 mcg PO DAILY pantoprazole 40 mg Tablet,Delayed Release (Dr/Ec) 40 mg PO QAM Qty: 30 0RF clopidogrel 75 mg tablet 75 mg PO QAM [facility] 750 mg-100 mg- 1.65 mg-108 mg Tablet 2 tab PO DAILY aspirin 81 mg Tablet,Delayed Release (Dr/Ec) 81 mg PO QAM 30 Days Qty: 30 2RF Rx Instructions: ALWAYS TAKE WITH A FULL STOMACH magnesium oxide 400 mg (241.3 mg magnesium) tablet 400 mg PO DAILY gabapentin 100 mg capsule 100 mg PO TID albuterol sulfate 90 mcg/actuation HFA aerosol inhaler 2 puff INHALATION Q4H PRN (Reason: Wheezing) benazepril 10 mg tablet 10 mg PO QAM metformin 500 mg tablet extended release 24 hr 1,000 mg PO AMPM Discharge Orders: Discharge Order (Routine); Ordered 11/04/23 Ordered By: Terrence White Admission Data Admit Date/Time: 10/30/23 16:41 Attending Provider: Terrence White Admit Provider: Shaunna Bravo Primary Care Provider: Rebekah Giron Other Providers: Kevyn Parker; Toni Rdz; Abigail Cardenas; Carina Johnston; Ree Soto; Usman,Nasir; Manuel Hensley; Taina Michele; Pipo Wilson; Henrik Rincon; Arin Garcia; Fina Rea; Breann Ochoa; Casandra Lora; Abbe Casey; Simón Franco; Angel Luis Diaz; Justyna Davila; Behzad Grullon Jr; [place]; Sarabjit Tate; Arthur Torre Other Interventions: Discharge Summary Assessment (RN) Last Done: 11/04/23 13:18
== END 2023-11-04 14:52 | disposition home health service (06) | DRG 446 ==
LOC: EDINP 18:55 → ED 18:55 → 2W 10-29 02:45 → SUATTDRO 10-30 16:41 → 3N 10-30 23:33